=== PATIENT | male | born 1985 ===

== ENCOUNTER 2025-07-24 20:20 | Outpatient (REF) | payer MEDICAID, SELFPAY ==
--- OUTSIDE RECORDS SUMMARY | 2025-07-23 13:20 | XMS_ITS | Encounter Summary ---
Author Organization [facility] Address [address] [place] [address] Care Team Providers Care Certified Alcohol Drug Counselor Name Role Phone Cathleen Allan MD Unavailable [phone] Pete Hester MD Unavailable [phone] Pati Armendariz PhD Unavailabl e Madhav Mcfadden MD Primary Care Provider [phone] Romero Pryor MD Unavailable [phone] Prerna Paulino MD Unavailable [phone] Magda Davis MD Unavailable [phone] Ifeoma Hanson MD Unavailable [phone] Ifeoma Hanson MD Unavailable [phone] Encounter Details Date Type Department Care Team (Late st Contact Info) Description 07/23/2025 1:20 PM EST Office Visit MG PAIN MGMT [id number] [address] [phone] Reji Mi DO [address] [phone] Complex regional pain syndrome type 2 of left upper extremity (Primary Dx); Discitis of thoracic region; Encounter for long-term opiate analgesic use; Encounter for therapeutic drug monitoring Social History Tobacco Use Types Packs/Day Years Used Date Smoking Tobacco: Never Passive Smoke Exposure: Past Smokeless Tobacco: Never Alcohol Use Standard Drinks/Week Comments Not Currently 0 (1 standard drink = 0.6 oz pur e alcohol) [facility] Utilities Answer Date Recorded In the past 12 months has th e electric, gas, oil, or water company threatened to shut off services in your home? No 09/18/2024 Social Connection and Isolation Panel Answer Date Recorded In a typical week, how many times do you talk on the phone with family, friends, or neighbors? More than three times a week 09/18/2024 Frequency of Social Gatherin gs with Friends and Family Not on file 09/18/2024 Attends Hindu Services Not on file 09/18 Active Member of Clubs or Organizations Not on f ile 09/18/2024 Attends Club or Organization Meetings Not on reba e 09/18/2024 Marital Status Not on file 09/18/2024 AUDIT-C Answer Date Recorded Q1: How often do you have a drink containing alcohol? Never 09/24/2024 Q2: How many drinks containi ng alcohol do you have on a typical day when you are drinking? Patient does not drink Q3: How often do you have si x or more drinks on one occasion? Never 09/24/2024 Overall Financial Resource Strain (CARDIA) Answe r Date Recorded How hard is it for you to pa y for the very basics like food, housing, medical care, and heating? Not very hard 04/02/2023 PHQ-2 Answer Date Recorded PHQ-2 Total Score 2 07/23/2025 Hunger Vital Sign Answer Date Recorded Within the past 12 months, y ou worried that your food would run out before you got the money to buy more. Never true 09/18/19 25 Within the past 12 months, t he food you bought just didn't last and you didn't have money to get more. Never true 09/18/2024 PRAPARE - Transportation Answer Date Re corded In the past 12 months, has l ack of transportation kept you from medical appointments or from getting medications? No 09/06 In the past 12 months, has l ack of transportation kept you from meetings, work, or from getting things needed for daily living? No 09/18/2024 Housing Stability Vital Sign Answer Alden e Recorded In the last 12 months, was t here a time when you were not able to pay the mortgage or rent on time? No 04/02/2023 In the last 12 months, how many places have you lived? 1 04/02/2023 In the last 12 months, was t here a time when you did not have a steady place to sleep or slept in a custodial (including now)? No 04/02/2023 Housing Stability Vital Sign Answer Alden e Recorded In the last 12 months, was t here a time when you were not able to pay the mortgage or rent on time? No 09/18/2024 In the past 12 months, how m any times have you moved where you were living? 0 09/18/2024 At any time in the past 12 m ont, were you homeless or living in a custodial (including now)? No 09/18/2024 [facility] - Occupational Stress Questionnaire Answer Date Recorded Do you feel stress - tense, restless, nervous, or anxious, or unable to sleep at night because your mind is troubled all the time - these days? Very much 06/30/2025 Physical Activity Answer Date Recorded On average, how many days pe r week do you engage in moderate to strenuous exercise (like a brisk walk)? 0 days 06/30/2025 On average, how many minutes do you exercise per day at this level? 0 min 06/30/2025 Sex and Gender Information Value Date Recorded Sex Assigned at Male 08/16/2022 10:08 AM EST Legal Sex Male 2:40 PM EDT Gender Identity Male 08/16/2022 10:08 AM EST Sexual Orientation Heterosexual (straight) 08/16 10:08 AM EST documented as of this encounter Last Filed Vital Signs Vital Sign Reading Time Taken Comments Blood Pressure 155/83 07/23/2025 1:23 PM EST Pulse 66 07/23/2025 1:23 PM EST Temperature - - Respiratory Rate 18 07/23/2025 1:23 PM EST Oxygen Saturation 97% 07/23/2025 1:23 PM EST Inhaled Oxygen Concentration - - Weight 98.9 kg (218 lb) 07/23/2025 1:23 PM EST Height 185.4 cm (6' 1 ) 07/23/2025 1:23 PM EST Body Mass Index 28.76 07/23/2025 1:23 PM EST documented in this encounter Functional Status * Over the past 2 weeks, how often have you been bothered by any of the following problems? Question Answer Date of Assessment Author Patient Health Questionnaire -2 Score 2 07/23/2025 1:29 PM EST Golria Paul MA * Question Answer Date of Assessment Author PHQ-2 Total Score 2 07/23/2025 1:29 PM EST Gloria Paul MA Little interest or pleasure in doing things Several days 07/23/2025 1:29 PM EST Gloria Paul MA Feeling down, depressed, or hopeless Several days 07/23/2025 1:29 PM EST Gloria Paul MA documented as of this encounter Progress Notes * Reji Mi DO - 07/23/2025 3:14 PM EST Images from the original note were not included. Assessment and Plan 1. Complex regional pain syndrome type 2 of left upper extremity - Buprenorphine (BUTRANS) 20 MCG/HR weekly patch; Place 1 patch on the skin every 7 days. Max DailyAmount: 1 patch Dispense: 4 patch; Refill: 1 2. Discitis of thoracic region 3. Encounter for long-term opiate analgesic use 4. Encounter for therapeutic drug monitoring Last PDMP Review User: Reji Mi DO Last PDMP Review Date and Time: 07/23/2025 1:51 PM Assessment & Plan Discitis of thoracic region Chronic thoracic discitis with pain and spasms, likely bacterial. Antibiotic treatment ongoing. Infectious disease specialist involved. CT scan planned for spine assessment. Potential antibiotic adjustment based on RNA testing. - Continue current antibiotic regimen. - Schedule CT scan of the spine at the end of the month. - Discuss with infectious disease specialist about potential need for contrast in CT scan. - Monitor vancomycin trough levels and adjust treatment if necessary. - Consider MRI if CT scan results are inconclusive. Complex regional pain syndrome type 2 of left upper extremity Chronic pain management ongoing. - Continue current pain management regimen. Chronic opioid therapy for pain management Chronic opioid therapy ongoing with Butrans, Dilaudid, and oxycodone. Current supply adequate. - Continue current opioid regimen. -Reassess opioid needs after completion of current supply. Therapeutic drug monitoring for antibiotics and opioids Monitoring ongoing for vancomycin and opioids. Vancomycin levels fluctuating. - Continue monitoring vancomycin trough levels. - Continue monitoring opioid levels as part of chronic pain management. No follow-ups on file. History of Present Illness CHIEF COMPLAINT: No chief complaint on file. History of Present Illness Andrea Torres is a 39 year old male who presents for follow-up on his antibiotic treatment and painmanagement related to a spinal infection. He mentions that his infectious disease doctor, Dr. Kerry Kaba from [facility], is involved in his care. 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 - Symptoms have persisted for up to three years without significant improvement - Currently receiving IV vancomycin and ceftriaxone for approximately one month - Vancomycin trough levels have fluctuated, recently decreased from 15 to 10 mcg/dL - Concern for adequacy of antibiotic therapy and possible resistance - Infection may be extending into the epidural space per infectious disease specialist - Scheduled for CT scan of the spine at the end of July for further assessment - Concern for potential vancomycin toxicity and increased drug clearance Spinal pain - Severe spinal pain characterized by spasms - Pain worsened by leaning slightly to the left or right Pain management - Uses Dilaudid as needed for pain control - Oxycodone last filled in early June - Utilizes Butrans patches for pain management, but did not use them during a recent two-week hospitalization ALLERGIES: is allergic to vancomycin and pertussis vaccines. CURRENT MEDICATION LIST: Current Medications[1] PAST MEDICAL HISTORY: He has a past medical history of Abdominal wall cellulitis (09/19/2022), Absolute anemia (12/16/2021), VELIA (acute kidney injury) (01/23/2023), Anxiety, Anxiety and depression, Attention deficit disorder, Cellulitis and abscess of unspecified site, Chronic tension-type headache, intractable (11/25/2019), Cold intolerance, Complex regional pain syndrome of left upper extremity, Contact dermatitis and other eczema due to plants (except food), CPAP (continuous positive airway pressure) dependence, CRPS (complex regional pain syndrome), upper limb, Food intolerance, Gastroparesis (07/13/2022), General weakness, GERD (gastroesophageal reflux disease), Heartburn, Heat intolerance, History of transfusion, Hyperlipidemia, Hypertension, Hypogonadism in male, Hypogonadism in male (08/14/2020), Infection of humerus (HCC) (11/18/2021), Intractable nausea and vomiting (11/01/2022), Irritable bowel syndrome, Lymphedema (09/29/2019), Nervous system device, implant, or graft infection or inflammation (08/14/2020), Obesity (BMI 30.0-34.9) (08/26/2013), Obstructive sleep apnea (adult) (pediatric), Odynophagia, Paralysis ([facility]), Personal history of diseases of skin and subcutaneous tissue, Personal history of other diseases of respiratory system, Personal history of other disorders of nervous systemand sense organs, Pneumonia, Preoperative examination, unspecified, Swelling, Type 2 diabetes mellitus with hyperglycemia, without long-term current use of insulin ([facility]), and UTI (urinary tract infection) (10/27/2021). PAST SURGICAL HISTORY: He has a past surgical history that includes pr xcapsl ctrc rmvl insj io lens prosth w/o ecp; Colonoscopy; Sinus surgery; INJECTION/BLOCK STELLATE GANGLION (Left, 06/26/2019); ENDOSCOPY (10/25/2020);INJECTION/BLOCK STELLATE GANGLION (Left, 08/07/2019); INJECTION/BLOCK STELLATE GANGLION (Left, 10/21/2019); INJECTION/BLOCK STELLATE GANGLION (Left, 11/25/2019); PERCUTANEOUS IMPLANTATION NEUROSTIMULATOR-PERIPHERAL NERVE (Left, 02/05/2020); Uvulectomy (06/2019); Neuroplasty brachial plexus (Left, 03/03/2022); Ulnar nerve repair (Left, 03/03/2022); Carpal tunnel release (11/2021); Abdominal adhesion surgery (11/2021); Shoulder surgery (11/2021); IR Insert G/J Tube Incl Imaging (N/A, 09/07/2022); CVC INSERT (TUNNEL) W/O PORT GREATER THAN 5 YRS (N/A, 09/28/2022); IR G Tube/G-J Tube Placement W/Guidance (N/A, 12/14/2022); and IR G-J TUBE CHANGE (N/A, 01/23/2023). FAMILY HISTORY: His family history includes Hypertension in his mother; No Known Problems in his father. SOCIAL HISTORY: He reports that he has never smoked. He has been exposed to tobacco smoke. He has never used smokeless tobacco. He reports that he does not currently use alcohol. He reports that he does not use drugs. Review of Systems Screenings Physical Activity On average, how many days per week do you engage in moderate to strenuous exercise (like a brisk walk)?: (Patient-Rptd) 0 days On average, how many minutes do you exercise per day at this level?: (Patient- Rptd) 0 min Total minutes per week of physical activity: : (Patient-Rptd) 0 Stress Do you feel stress - tense, restless, nervous, or anxious, or unable to sleep at night because yourmind is troubled all the time - these days?: (Patient-Rptd) Very much PEG: A Three-Item Scale Assessing Pain Intensity and Interference What number best describes your pain on average in the past week?: (Patient- Rptd) 10 - Pain as bad as you can imagine What number best describes how, during the past week, pain has interfered with your enjoyment of life?: (Patient-Rptd) 10 - Completely interferes What number best describes how, during the past week, pain has interfered with your general activity?: (Patient-Rptd) 10 - Completely interferes PEG Pain Total Score: (Patient-Rptd) 10 VAS for Low Back Pain Low Back Pain Score: (Patient-Rptd) 5 VAS for Leg Pain: (Patient-Rptd) 5 Physical Exam VITAL SIGNS: BP (!) 155/83 (BP Location: Left arm, Patient Position: Sitting, Cuff Size: Medium (Standard)) Pulse 66 Resp 18 Ht 1.854 m (6' 1 ) Wt 98.9 kg (218 lb) SpO2 97% BMI 28.76 kg/m?? Physical Exam Physical Exam This patient is being managed for a complex and serious condition that requires ongoing, intensive medical management. The nature of this condition demands constant vigilance and a nuanced approach to treatment. The seriousness of the condition necessitates an in-depth and focused approach to management, including regular monitoring and potential coordination with other healthcare professionals. Detailed Description of Visit Complexity: This visit involved an intricate evaluation and management of the patient's condition. The complexity of the visit was due to the need for a detailed assessment of the current state, consideration of potential complications, and a careful balancing of treatment options to manage the condition effectively. Patient's Health Status and History: This patient has a significant pain history which requires regular and detailed management. The condition's impact on their life and health is substantial, necessitating a comprehensive and tailored approach to care. Reji Mi DO [1] Current Outpatient Medications: aprepitant (EMEND) 125 MG capsule, Take 1 capsule (125 mg total) by mouth once., Disp: , Rfl: atorvastatin (LIPITOR) 10 MG tablet, TAKE 1 TABLET BY MOUTH EVERY DAY, Disp: 90 tablet, Rfl: 1 B-D 3CC LUER-JHONNY SYR 25GX1 25G X 1 3 ML Misc, , Disp: , Rfl: B-D HYPODERMIC NEEDLE 21GX1 21G X 1 Misc, USE TO DRAW UP TESTOSTERONE EVERY 3 DAYS, Disp: , Rfl: carisoprodol (SOMA) 350 MG tablet, Take 1 tablet (350 mg total) by mouth 2 (two) times a day as needed for muscle spasms., Disp: 60 tablet, Rfl: 0 Continuous Glucose Sensor (Dexcom G7 Sensor) Misc, Apply 1 Device topically continuously. Use 1 sensor every 10 days, Disp: 9 each, Rfl: 3 famotidine (PEPCID) 20 MG tablet, TAKE 1 TABLET TWICE A DAY, Disp: 180 tablet, Rfl: 3 fenofibrate (TRICOR) 145 MG tablet, Take 1 tablet (145 mg total) by mouth daily., Disp: 90 tablet, Rfl: 3 HYDROmorphone (DILAUDID) 4 MG tablet, Take 1 tablet (4 mg total) by mouth 4 times daily (every 6 hours) as needed for severe pain. Max Daily Amount: 16 mg, Disp: 120 tablet, Rfl: 0 Motegrity 2 MG tablet, TAKE 1 TABLET BY MOUTH EVERY DAY, Disp: 30 tablet, Rfl: 3 multiple vitamin (M.V.I. Adult) injection, , Disp: , Rfl: NEEDLE, DISP, 18 G (BD Disp [place]) 18G X 1-1/2 Misc, Use to inject testosterone weekly., Disp: 12 each, Rfl: 3 NEEDLE, DISP, 25 G (B-D DISP NEEDLE 25GX1 ) 25G X 1 Misc, Use to inject testosterone weekly., Disp: 12 each, Rfl: 3 OMEprazole (PriLOSEC) 40 MG capsule, TAKE 1 CAPSULE TWICE A DAY, Disp: 180 capsule, Rfl: 3 ondansetron (ZOFRAN) 4 MG tablet, TAKE 1 TABLET BY MOUTH THREE TIMES A DAY EVERY 8 HOURS NEEDED FOR NAUSEA AND VOMITING, Disp: 20 tablet, Rfl: 1 Parenteral Electrolytes (TPN ELECTROLYTES IV), Infuse into a venous catheter., Disp: , Rfl: proMETHAZINE (PHENERGAN) 12.5 MG tablet, Take 1 tablet (12.5 mg total) by mouth every 4 (four) hours as needed., Disp: , Rfl: propranolol (INDERAL) 80 MG tablet, 1 tablet (80 mg total) by Mouth/Oral Cavity route every 12 hours., Disp: , Rfl: pyRIDostigmine [place] 60 MG/5ML Solution, Take by mouth., Disp: , Rfl: sodium chloride (1/2 NS) 0.45 % solution, , Disp: , Rfl: spacer for MDI (Aerochamber/BreatheRite/Ellipse) Device, Use as instructed, Disp: 1 each, Rfl: 0 Syringe, Disposable, (B-D SYRINGE LUER-JHONNY 1CC) 1 ML Misc, Use t inject testosterone weekly., Disp:12 each, Rfl: 3 testosterone cypionate (DEPO-TESTOSTERONE CYPIONATE) 200 mg/mL injection, INJECT 0.75ML INTO THE MUSCLE EVERY 3 DAYS, Disp: 20 mL, Rfl: 1 tirzepatide (MOUNJARO) 10 mg/0.5 mL pen-injector, Inject 1 Pen (10 mg total) under the skin once a week., Disp: 6 mL, Rfl: 1 tiZANidine (ZANAFLEX) 4 MG tablet, TAKE 1 TABLET BY MOUTH 3 TIMES A DAY., Disp: 90 tablet, Rfl: 0 Tralement [id number] MCG/ML injection, , Disp: , Rfl: zolpidem (AMBIEN) 10 MG tablet, TAKE 1 TABLET BY MOUTH EVERY DAY AT NIGHT, Disp: 90 tablet, Rfl: 0 Buprenorphine (BUTRANS) 20 MCG/HR weekly patch, Place 1 patch on the skin every 7 days. Max Daily Amount: 1 patch, Disp: 4 patch, Rfl: 1 documented in this encounter Plan of Treatment Upcoming Encounters Date Type Department Care Team (Late st Contact Info) Description 2025 8:00 AM EST Office Visit [address] [phone] Madhav Mcfadden MD [address] [place] [phone] 09/01/2025 9:20 AM EST Office Visit MG PAIN MGMT [id number] [address] [phone] ShmuelReji bunrett Joni, DO [address] [place] [phone] 09/29/2025 9:20 AM EST Office Visit MG PAIN MGMT [id number] [address] [phone] ShmueleRji silver Joni, DO [address] [place] [phone] 10/27/2025 9:40 AM EDT Office Visit MG PAIN MGMT [id number] [address] [phone] Reji Miil, DO [address] [place] [phone] 12/01/2025 9:40 AM EDT Office Visit MG PAIN MGMT [id number] [address] [phone] ShmuelReji burnett Joni, DO [address] [place] [phone] 02/03/2026 9:30 AM EDT Telemedicine [facility] Endocrinology [address] [phone] Ifeoma Hanson MD [address] [place] [phone] documented as of this encounter Goals Goal Patient Goal Type Associated Problems Recent Progress Patient-Stated? Author OT LTG 1 Occupational Therapy No Maida Benito OT Note: Patient will be independent with HEP for strengthening, desensitization, and coordination x12 weeks. 06/18/2019 He is independent with a desensitization HEP including scrubbing and using a rough cloth over arm, a theraputty HEP, and he was provided today with a [facility] HEP., ongoing OT LTG 2 Occupational Therapy No Maida Benito OT Note: Patient will decrease Quick Dash score from 79.5 to 10 or less in order to complete functional tasks with greater ease x 12 weeks 06/18/2019 Scored the same today, ongoing OT LTG 3 Occupational Therapy No Maida Benito, OT Note: Patient will increase L supervisor machine setter strength (4lbs) to 60 lbs or more in order to open pill bottles with greater ease x12 weeks Patient will increase L lateral pinch (3.5), L tip pinch (2.5), L 3 jaw pinch (2.5) by 5 lbs each in order for greater ease with typing x12 weeks. 06/18/2019 L supervisor machine setter- 20 lbs L lateral pinch- 6.2 Tip pinch- 7.1 3 jaw- 6.1 OT LTG 4 Occupational Therapy No Maida Benito, OT Note: Patient will decrease L 9 hole peg test score (41 seconds) to 26 seconds or less in order for greater ease with fine motor tasks related to dressing x12 weeks 06/18/2019 58 seconds, ongoing OT LTG 5 Occupational Therapy No Maida Benito, OT Note: Patient will increase L AROM shoulder flexion (128), extension (32), and abduction (112) to WFL in order to reach overhead with greater ease x 12 weeks 06/18/2019 Flexion- 140, Extension-42 Abduction-140 All measurements are equal to contralateral side, he demonstrates a 20 degree difference with IR on LUE. Original ROM goals met, IR one added Patient will increase LUE IE (60) to 80 in order to don coat with greater ease x12 weeks. OT LTG 6 Occupational Therapy No Maida Benito, OT Note: Patient will increase L shoulder abductors and IR's, elbow extensors, and wrist flexors/extensors (3+/5) to 5/5 in order to greater ease picking up young son x12 weeks Abductors- 3+ IR's- 5/5 Elbow extensors- 4/5 Wrist flexors-5/5 Wrist extensors- 4/5 Ongoing Andrea Torres Stated Goals: I no longer have the motivation to do things Care Plan Pain No Pati Armendariz, PhD Note: Develop an enhanced capacity for emotional expression that enables adaptive coping with frustration, and other emotions Care Plan Pain No Pati Armendariz, PhD documented as of this encounter Visit Diagnoses Diagnosis Complex regional pain syndrome type 2 of left upper extremity- Primary Discitis of thoracic region Other and unspecified disc disorder of thoracic region Encounter for long-term opiate analgesic use Encounter for long-term (current) use of other medications Encounter for therapeutic drug monitoring documented in this encounter Additional Health Concerns Active Problems Noted Date Diagnosed Date Pain 09/26/2024 documented as of this encounter Care Teams Certified Alcohol Drug Counselor Relationship Specialty Start Date End Date Madhav Mcfadden MD [address] [place] [phone] PCP - General Family Medicine 01/16/22 Cathleen Allan MD Urology 09/15/16 Pete Hester MD [address] [place] [phone] Surgery, Orthopedic 08/15/19 Pati Armendariz, PhD [address] [place], [place] [phone] Clinical Psychologist Psychology 09/16/21 Romero Pryor MD [address] [place] [address] [place] [address] Cardiovascular Disease 02/05/23 Prerna Paulino MD [address] [place] [address] Internal Medicine 07/04/24 Magda Davis MD [address] [place] [address] Gastroenterology 07/04/24 Ifeoma Hanson MD [address] [place] [address] Endocrinology 07/04/24 Ifeoma Hanson MD [address] [place] [phone] Endocrinology 11/26/24 documented as of this encounter
--- OUTSIDE RECORDS SUMMARY | 2025-07-24 20:30 | XMS_ITS | Encounter Summary ---
Author Organization [facility] Address [address] [place] [address] Care Team Providers Care Automation Qa Tester Name Role Phone Cathleen Allan MD Unavailable [phone] Pete Hester MD Unavailable [phone] Pati Armendariz PhD Unavailabl e Madhav Mcfadden MD Primary Care Provider [phone] Jacqueline Kay MD Unavailable Unavailable Yasmine Cohen RN Unavailable Unavaila Bre Pete RN Unavailable [phone] Madhav Mcfadden MD Unavailable [phone] Romero Pryor MD Unavailable [phone] Prerna Paulino MD Unavailable [phone] Magda Davis MD Unavailable [phone] Ifeoma Hanson MD Unavailable [phone] Ifeoma Hanson MD Unavailable [phone] Encounter Details Date Type Department Care Team (Late st Contact Info) Description 04/03/2022 Scanned Document [facility] EVENT MANAGEMENT CONSULTANT SCAN Physical Therapy, Scan Social History Tobacco Use Types Packs/Day Years Used Date Smoking Tobacco: Never Smokeless Tobacco: Never Alcohol Use Standard Drinks/Week Comments Yes 0 (1 standard drink = 0.6 oz pur e alcohol) rarely PHQ-2 Answer Date Recorded PHQ-2 Total Score 6 09/20/2021 Sex and Gender Information Value Date Recorded Sex Assigned at Male 08/16/2022 10:08 AM EST Legal Sex Male 2:40 PM EDT Gender Identity Male 08/16/2022 10:08 AM EST Sexual Orientation Heterosexual (straight) 08/16 10:08 AM EST COVID-19 Exposure Response Date Recorded In the last 10 days, have yo u been in contact with someone who was confirmed or suspected to have Coronavirus/COVID-19? No / Unsure 03/31/2022 7:50 AM EDT documented as of this encounter Plan of Treatment Upcoming Encounters Date Type Department Care Team (Late st Contact Info) Description 2025 8:00 AM EST Office Visit [address] [phone] Madhav Mcfadden MD [address] [place] [address] 09/01/2025 9:20 AM EST Office Visit [id number] [address] [phone] Reji Miil, DO [address] [place] [phone] 09/29/2025 9:20 AM EST Office Visit [id number] [address] [phone] Reji Mi Joni, DO [address] [place] [phone] 10/27/2025 9:40 AM EDT Office Visit [id number] [address] [phone] Reji Miil, DO [address] [place] [phone] 12/01/2025 9:40 AM EDT Office Visit [id number] [address] [place] [phone] Shmuel Reji Joni, [address], [place] [phone] 02/03/2026 9:30 AM EDT Telemedicine [facility] [place] [address] [place] [phone] Ifeoma Hanson MD [address] [facility], [place] [phone] documented as of this encounter Goals Goal Patient Goal Type Associated Problems Recent Progress Patient-Stated? Author OT LTG 1 Occupational Therapy No Maida Benito, OT Note: Patient will be independent with HEP for strengthening, desensitization, and coordination x12 weeks. 06/18/2019 He is independent with a desensitization HEP including scrubbing and using a rough cloth over arm, a theraputty HEP, and he was provided today with a [facility] HEP., ongoing OT LTG 2 Occupational Therapy No Maida Benito, OT Note: Patient will decrease Quick Dash score from 79.5 to 10 or less in order to complete functional tasks with greater ease x 12 weeks 06/18/2019 Scored the same today, ongoing OT LTG 3 Occupational Therapy No Maida Benito, OT Note: Patient will increase L ob tech strength (4lbs) to 60 lbs or more in order to open pill bottles with greater ease x12 weeks Patient will increase L lateral pinch (3.5), L tip pinch (2.5), L 3 jaw pinch (2.5) by 5 lbs each in order for greater ease with typing x12 weeks. 06/18/2019 L ob tech- 20 lbs L lateral pinch- 6.2 Tip [...] 4/5 Wrist flexors-5/5 Wrist extensors- 4/5 Ongoing documented as of this encounter Visit Diagnoses Not on filedocumented in this encounter Additional Health Concerns Infection Onset Date Last Indicated Resolved Time R/O Gastrointestinal Infection 10/31/2022 10/31/2022 11/02/2022 11:58 AM EDT R/O C. Difficile 10/31/2022 10/31/2022 11/02/2022 11:58 AM EDT documented as of this encounter Care Teams Automation Qa Tester Relationship Specialty Start Date End Date Madhav Mcfadden MD [address] [place] [address] PCP - General Family Medicine 01/16/22 Jacqueline Kay MD PCP - [employer] Commercial Attributed 11/04/21 07/05/22 Madhav Mcfadden MD [address] [place], [place] [phone] PCP - [employer] Commercial Attributed 07/06/22 07/05/23 Cathleen Allan MD Urology 09/15/16 Pete Hester MD [address] [place] [address] Surgery, Orthopedic 08/15/19 Pati Armendariz, PhD [address] [place] [address] Clinical Psychologist Psychology 09/16/21 Yasmine Cohen RN ICP Community Electric Meter Inspector 07/21/22 08/26/23 Bre Almaguer, RN [address] [address] ICP Community Electric Meter Inspector 10/03/22 11/13/22 Romero Pryor MD [address] [place] [address] Cardiovascular Disease 02/05/23 Prerna Paulino MD [address] [place] [address] Internal Medicine 07/04/24 Magda Davis MD [address] [place] [address] Gastroenterology 07/04/24 Ifeoma Hanson MD [address] [place] [address] Endocrinology 07/04/24 Ifeoma Hanson MD [address] [place] [address] Endocrinology 11/26/24 documented as of this encounter
--- OUTSIDE RECORDS SUMMARY | 2025-07-24 20:30 | XMS_ITS | Encounter Summary ---
Author Organization [facility] Address [address] [place] [address] Care Team Providers Care Excellence Leader Name Role Phone Madhav Mcfadden MD Primary Care Provider [phone] Encounter Details Date Type Department Care Team ([facility] st Contact Info) Description 04/16/2023 Scanned Document [facility] [address] [facility] [address] [place] [address] [address] [place], [place] [phone] Magda Davis MD [address] [place] [address] Social History Tobacco Use Types Packs/Day Years Used Date Smoking Tobacco: Never Assessed Overall Financial Resource Strain (CARDIA) Answe r Date Recorded How hard is it for you to pa y for the very basics like food, housing, medical care, and heating? Not hard at all 03/17/2023 PHQ-2 Answer Date Recorded PHQ-2 Total Score 0 03/17/2023 Hunger Vital Sign Answer Date Recorded Within the past 12 months, y ou worried that your food would run out before you got the money to buy more. Sometimes true Within the past 12 months, t he food you bought just didn't last and you didn't have money to get more. Never true 07/2023 PRAPARE - Transportation Answer Date Re corded In the past 12 months, has l ack of transportation kept you from medical appointments or from getting medications? No 03/06 In the past 12 months, has l ack of transportation kept you from meetings, work, or from getting things needed for daily living? No 03/17/2023 Housing Stability Answer Date Recorded What is your living situation today? I have a poncho place to live 03/17/2023 Housing Stability Not on file 03/17/2023 Sex and Gender Information Value Date Recorded Sex Assigned at Male 06/16/2025 10:30 AM EST Legal Sex Male 8:50 PM EST Gender Identity Male 06/16/2025 10:30 AM EST Sexual Orientation Not on file documented as of this encounter Miscellaneous Notes * Result Encounter Note - Magda Berman PA - 04/16/2023 3:11 PM EDT [facility] Documentation Note LAB REVIEW OPAT Synopsis can be found Here Summary of Results Date of lab draw: 04/16/23 Cr= 1.19 (from: 0.9) WBC= 5.1 (from: 4.1) Hg/HCT= 14.7/45.6 (from: 14.0/42.6) CRP= not resulted (from: 0.9) Was an Adverse Event Identified? No Author's Role RASHID (e.g. UGO or MANOLO) Total Time Spent on this Encounter (in minutes) 5 minutes documented in this encounter Plan of Treatment Upcoming Encounters Date Type Department Care Team (Late st Contact Info) Description 08/05/2025 1:40 PM EST Appointment [facility] Scan [address] [place] [address] [place] [address] Bal Villavicencio MD [address] [place] [address] 08/11/2025 4:00 PM EST Evaluation [facility] [address] [place], [place] [address] Kerry Kaba MD 200 [facility] [address] [place] [phone] 08/17/2025 1:00 PM EST Office Visit [facility] [address] [place] [address] Petrona Nesbitt PA [address] [place] [phone] 09/04/2025 10:15 AM EST [facility] at [address] [place] [address] Carlos Lo MD [address] [place] [phone] 10/20/2025 4:00 PM EDT Telemedicine [facility] at [address] [place] [address] [address] [place] [address] Prerna Paulino MD [address] [place] [phone] 10/29/2025 9:00 AM EDT Office Visit [facility] [address] [place] [address] Petrona Nesbitt PA [address] [place] [phone] 12/10/2025 10:00 AM EDT Office Visit [facility] [address] [place] [address] Petrona Nesbitt PA [address] [place] [phone] 01/21/2026 10:00 AM EDT Office Visit [facility] [address] [place] [address] Petrona Nesbitt PA [address] [place] [phone] 03/04/2026 10:00 AM EDT Office Visit [facility] [address] [place] [address] Petrona Nesbitt PA [address] [facility] [place] [address] 04/15/2026 10:30 AM EDT Office Visit [facility] 8 [facility] 8 [place] [address] Ebonie Crowley MD [address] [phone] documented as of this encounter Procedures Procedure Name Priority Date/Time Associated Diagnosis Comments LAB SCAN Routine 04/16/2023 documented in this encounter Results * Lab Scan (04/16/2023) Magda Davis MD LAB BLOOD ORDERABLES Final Re sult documented in this encounter Visit Diagnoses Not on filedocumented in this encounter Additional Health Concerns Infection Onset Date Last Indicated Resolved Time R/O Respiratory Virus 08/17/2023 08/17/20232023 7:04 AM EST R/O COVID-19 08/17/2023 08/17/2023 08/17/2023 7:04 AM EST R/O Respiratory Virus 08/18/2023 08/18/20232023 2:28 PM EST R/O Respiratory Virus 08/18/2023 08/18/20232023 6:50 PM EST Assessment Noted Time PHQ-9 Depression Total Score: 0 03/17/20 23 6:12 AM EDT documented as of this encounter Care Teams Excellence Leader Relationship Specialty Start Date End Date Madhav Mcfadden MD [address] [place], [place] [address] [address] PCP - General Family Medicine 08/20/23 documented as of this encounter
--- OUTSIDE RECORDS SUMMARY | 2025-07-24 20:30 | XMS_ITS | Encounter Summary ---
Author Organization [facility] Address [address] [place] [address] Care Team Providers Care Education Dean Name Role Phone Jacqueline Kay MD Primary Care Provider Unava ilable Jacqueline Kay MD Unavailable Unavailable Cathleen Allan MD Unavailable [phone] Pete Hester MD Unavailable [phone] Pati Armendariz PhD Unavailabl e Madhav Mcfadden MD Primary Care Provider [phone] Jacqueline Kay MD Unavailable Unavailable Yasmine Cohen RN Unavailable Unavaila Bre Pete RN Unavailable [phone] Madhav Mcfadden MD Unavailable [phone] Romero Pryor MD Unavailable [phone] Prerna Paulino MD Unavailable [phone] Magda Davis MD Unavailable [phone] Ifeoma Hanson MD Unavailable [phone] Ifeoma Hanson MD Unavailable + [phone] Encounter Details Date Type Department Care Team (Late st Contact Info) Description 12/12/2021 Scanned Document [address] [phone] Family Medicine, Scan Social History Tobacco Use Types Packs/Day [...] AM EST documented as of this encounter Plan of Treatment Upcoming Encounters Date Type Department Care Team (Late st Contact Info) Description 2025 8:00 AM EST Office Visit [address] [phone] Madhav Mcfadden MD [address] [place] [address] 09/01/2025 9:20 AM EST Office Visit [id number] [address] [phone] Reji Miil, DO [address] [place] [phone] 09/29/2025 9:20 AM EST Office Visit [id number] [address] [address] Reji Mi Joni, DO [address] [place] [phone] 10/27/2025 9:40 AM EDT Office Visit [id number] [address] [phone] Reji Mi Joni, DO [address] [place] [phone] 12/01/2025 9:40 AM EDT Office Visit [id number] [address] [place] [phone] ShmuelReji Joni, [address], [place] [phone] 02/03/2026 9:30 AM EDT Telemedicine [facility] Endocrinology [place] [address] [place] [phone] Ifeoma Hanson MD [address] [facility], [place] [phone] documented as of this encounter Goals Goal [...] and he was provided today with a [facility] HEP., ongoing OT LTG 2 Occupational Therapy No Maida Benito, OT Note: Patient will decrease Quick Dash score from 79.5 to 10 or less in order to complete functional tasks with greater ease x 12 weeks 06/18/2019 Scored the same today, ongoing OT LTG 3 Occupational Therapy No Maida Benito, OT Note: Patient will increase L nylon operator strength (4lbs) to 60 lbs or more in order to open pill bottles with greater ease x12 weeks Patient will increase L lateral pinch (3.5), L tip pinch (2.5), L 3 jaw pinch (2.5) by 5 lbs each in order for greater ease with typing x12 weeks. 06/18/2019 L nylon operator- 20 lbs L lateral pinch- 6.2 Tip [...] 4/5 Ongoing documented as of this encounter Procedures Procedure Name Priority Date/Time Associated Diagnosis Comments LAB RESULT 12/12/2021 documented in this encounter Results * LAB RESULT (12/12/2021) 12/12/2021 us Scan Family Medicine HX AMB PROCEDURES Edited Re sult - Final documented in this encounter Visit Diagnoses Not on filedocumented in this encounter Additional Health Concerns Infection Onset Date Last Indicated Resolved Time R/O Gastrointestinal Infection 10/31/2022 10/31/2022 11/02/2022 11:58 AM EDT R/O C. Difficile 10/31/2022 10/31/2022 11/02/2022 11:58 AM EDT documented as of this encounter Care Teams Education Dean Relationship Specialty Start Date End Date Jacqueline Kay MD PCP - General Family Medicine 04/29/21 01/15/22 Madhav Mcfadden MD [address] [place] [address] PCP - General Family Medicine 01/16/22 Jacqueline Kay MD PCP - [employer] Commercial Attributed 11/04/21 07/05/22 Madhav Mcfadden MD [address] [place] [address] PCP - [employer] Commercial Attributed 07/06/22 07/05/23 Jacqueline Kay MD Family Medicine 04/29/21 03/30/22 Cathleen Allan MD Urology 09/15/16 Pete Hester MD [address] [place] [address] Surgery, Orthopedic 08/15/19 Pati Armendariz, PhD [address] [place] [address] Clinical Psychologist Psychology 09/16/21 Yasmine Cohen RN ICP Community Tank Builder Helper 07/21/22 08/26/23 Bre Almaguer, RN [address] [address] ICP Community Tank Builder Helper 10/03/22 11/13/22 Romero Pryor MD [address] [place] [address] Cardiovascular Disease 02/05/23 Prerna Paulino MD [address] [place] [address] Internal Medicine 07/04/24 Magda Davis MD [address] [place] [address] Gastroenterology 07/04/24 Ifeoma Hanson MD [address] [place] [address] Endocrinology 07/04/24 Ifeoma Hanson MD [address] [place] [address] Endocrinology 11/26/24 documented as of this encounter
--- OUTSIDE RECORDS SUMMARY | 2025-07-24 20:30 | XMS_ITS | Encounter Summary ---
Author Organization [facility] Address [address] [place] [address] Care Team Providers Care Photography Professor Name Role Phone Bianka Kelly APRN Primary Care Provider U Jacqueline Campos MD Primary Care Provider Unava ilable Jacqueline Kay MD Primary Care Provider Unava Jacqueline Valdez MD Unavailable Unavailable Jacqueline Kay MD Unavailable Unavailable Stephanie Darnell I TRAIN ANNOUNCER Unavailable [phone] Stephanie Darnell I TRAIN ANNOUNCER Unavailable [phone] Cathleen Allan MD Unavailable [phone] Pete Hester MD Unavailable [phone] Pati Armendariz PhD Unavailabl e Madhav Mcfadden MD Primary Care Provider [phone] Jacqueline Kay MD Unavailable Unavailable Yasmine Cohen RN Unavailable Unavaila ble Bre Almaguer RN Unavailable [phone] Madhav Mcfadden MD Unavailable [phone] Romero Pryor MD Unavailable [phone] Prerna Paulino MD Unavailable [phone] Magda Davis MD Unavailable [phone] Ifeoma Hanson MD Unavailable Ifeoma Hanson MD Unavailable Encounter Details Date Type Department Care Team (Late st Contact Info) Description 01/03/2017 Scanned Document [facility] [address] [place] [phone] Bianka Kelly APRN Social History Tobacco Use Types Packs/Day Years Used Date Smoking Tobacco: Never Alcohol Use Standard Drinks/Week Comments Yes 0 (1 standard drink = 0.6 oz pur e alcohol) Occasional Sex and Gender Information Value Date Recorded Sex Assigned at Male 08/16/2022 10:08 AM EST Legal Sex Male 2:40 PM EDT Gender Identity Male 08/16/2022 10:08 AM EST Sexual Orientation Heterosexual (straight) 08/16 10:08 AM EST documented as of this encounter Plan of Treatment Upcoming Encounters Date Type Department Care Team (Late st Contact Info) Description 2025 8:00 AM EST Office Visit [address] [phone] Madhav Mcfadden MD [address] [place] [phone] 09/01/2025 9:20 AM EST Office Visit [id number] [address] [phone] Reji Mi, DO [address] [place] [phone] 09/29/2025 9:20 AM EST Office Visit [id number] [address] [address] Reji Mi, DO [address] [place] [phone] 10/27/2025 9:40 AM EDT Office Visit [id number] [address] [place] [phone] ShmuelReji Joni, DO [address] [phone] 12/01/2025 9:40 AM EDT Office Visit [id number] [address] [place] [phone] ShmuelReji Joni, DO [address], [place] [phone] 02/03/2026 9:30 AM EDT [facility] [address] [phone] Ifeoma Hanson MD [address] [place] [address] documented as of this encounter Visit Diagnoses Not on filedocumented in this encounter Additional Health Concerns Infection Onset Date Last Indicated Resolved Time R/O Gastrointestinal Infection 10/31/2022 10/31/2022 11/02/2022 11:58 AM EDT R/O C. Difficile 10/31/2022 10/31/2022 11/02/2022 11:58 AM EDT documented as of this encounter Care Teams Photography Professor Relationship Specialty Start Date End Date Bianka Kelly APRN PCP - General Family Medicine 06/15/16 10/31/17 Jacqueline Kay MD PCP - General Family Medicine 11/01/17 04/28/21 Jacqueline Kay MD PCP - General Family Medicine 04/29/21 01/15/22 Jacqueline Kay MD PCP - [employer] Attributed 06/06/20 07/05/20 Stephanie Darnell APRN [address] [phone] PCP - [employer] Commercial Attributed 07/06/20 10/03/20 Stephanie Darnell I, TRAIN ANNOUNCER [address] [phone] PCP - [employer] Commercial Attributed 05/06/21 11/03/21 Madhav Mcfadden MD [address] [place], [place] [phone] PCP - General Family Medicine 01/16/22 Jacqueline Kay MD PCP - [employer] Commercial Attributed 11/04/21 07/05/22 Madhav Mcfadden MD [address] [place] [address] PCP - [employer] Commercial Attributed 07/06/22 07/05/23 Jacqueline Kay MD Family Medicine 04/29/21 03/30/22 Cathleen Allan MD [address] [place] [phone] Urology 09/15/16 Pete Hester MD [address] [place] [address] Surgery, Orthopedic 08/15/19 Pati Armendariz, PhD [address] [place] [address] [phone] Clinical Psychologist Psychology 09/16/21 Yasmine Cohen, RN [address] [place] [address] ICP [employer] Assistant Principal 07/21/22 08/26/23 Bre Almaguer, RN 12[address] Degroot [address] [address] ICP [employer] Assistant Principal 10/03/22 11/13/22 Romero Pryor MD [address] [place] [address] Cardiovascular Disease 02/05/23 Prerna Paulino MD [address] [place], [place] [phone] Internal Medicine 07/04/24 Magda Davis MD [address] [place] [address] Gastroenterology 07/04/24 Ifeoma Hanson MD [address] [place] [address] Endocrinology 07/04/24 Ifeoma Hanson MD [address] [place] [address] Endocrinology 11/26/24 documented as of this encounter
--- OUTSIDE RECORDS SUMMARY | 2025-07-24 20:30 | XMS_ITS | Encounter Summary ---
Author Organization [facility] Address [address] [place] [address] Care Team Providers Care Load Blocker Name Role Phone Cathleen Allan MD Unavailable [phone] Pete Hester MD Unavailable + [phone] Pati Armendariz PhD Unavailabl e Madhav Mcfadden MD Primary Care Provider [phone] Yasmine Cohen RN Unavailable Unavaila ble Bre Almaguer RN Unavailable [phone] Madhav Mcfadden MD Unavailable [phone] Romero Pryor MD Unavailable [phone] Prerna Paulino MD Unavailable + [phone] Magda Davis MD Unavailable [phone] Ifeoma Hanson MD Unavailable +[phone] Ifeoma Hanson MD Unavailable + [phone] Encounter Details Date Type Department Care Team ([facility] st Contact Info) Description 09/14/2022 Scanned Document [facility] CARDIOLOGY SCAN Cardiology, Scan Social History Tobacco Use Types Packs/Day Years Used Date Smoking Tobacco: Never Smokeless Tobacco: Never Alcohol Use Standard Drinks/Week Comments Not Currently 0 (1 standard drink = 0.6 oz pur e alcohol) AUDIT-C Answer Date Recorded Q1: How often do you have a drink containing alcohol? Never 09/18/2022 Q2: How many drinks containi ng alcohol do you have on a typical day when you are drinking? Patient does not drink Q3: How often do you have si x or more drinks on one occasion? Never 09/18/2022 Overall Financial Resource Strain (CARDIA) Answe r Date Recorded How hard is it for you to pa y for the very basics like food, housing, medical care, and heating? Not very hard 07/21/2022 PHQ-2 Answer Date Recorded PHQ-2 Total Score 6 09/20/2021 Hunger Vital Sign Answer Date Recorded Within the past 12 months, y ou worried that your food would run out before you got the money to buy more. Never true 07/21/20 22 Within the past 12 months, t he food you bought just didn't last and you didn't have money to get more. Never true 07/21/2022 PRAPARE - Transportation Answer Date Re corded In the past 12 months, has l ack of transportation kept you from medical appointments or from getting medications? No 07/06 In the past 12 months, has l ack of transportation kept you from meetings, work, or from getting things needed for daily living? No 07/21/2022 Housing Stability Vital Sign Answer Alden e Recorded In the last 12 months, was t here a time when you were not able to pay the mortgage or rent on time? No 07/21/2022 Number of Places Lived in the Last Year Not on f ile 07/21/2022 In the last 12 months, was t here a time when you did not have a steady place to sleep or slept in a retirement (including now)? No 07/21/2022 Sex and Gender Information Value Date Recorded [...] suspected to have Coronavirus/COVID-19? No / Unsure 09/12/2022 10:00 AM EST documented as of this encounter Plan of Treatment Upcoming Encounters Date Type Department Care Team (Late st Contact Info) Description 2025 8:00 AM EST Office Visit [address] [phone] Madhav Mcfadden MD [address] [place] [address] 09/01/2025 9:20 AM EST Office Visit [id number] [address] [phone] Reji Mi, DO [address] [place] [address] 09/29/2025 9:20 AM EST Office Visit [id number] [address] [phone] Reji Mi, DO [address] [place] [address] 10/27/2025 9:40 AM EDT Office Visit [id number] [address] [phone] Reji Mi, DO [address] [place] [address] 12/01/2025 9:40 AM EDT Office Visit [id number] [address] [phone] Reji Mi, DO [address] [place] [address] 02/03/2026 9:30 AM EDT Telemedicine [facility] Endocrinology [address] [place] [address] Ifeoma Hanson MD [address] [place] [address] documented as of this encounter Goals Goal [...] and he was provided today with a [facility] HEP., ongoing OT LTG 2 Occupational Therapy No Maida Benito, OT Note: Patient will decrease Quick Dash score from 79.5 to 10 or less in order to complete functional tasks with greater ease x 12 weeks 06/18/2019 Scored the same today, ongoing OT LTG 3 Occupational Therapy No Maida Benito, OT Note: Patient will increase L window glazier helper strength (4lbs) to 60 lbs or more in order to open pill bottles with greater ease x12 weeks Patient will increase L lateral pinch (3.5), L tip pinch (2.5), L 3 jaw pinch (2.5) by 5 lbs each in order for greater ease with typing x12 weeks. 06/18/2019 L window glazier helper- 20 lbs L lateral pinch- 6.2 Tip [...] documented as of this encounter Care Teams Load Blocker Relationship Specialty Start Date End Date Madhav Mcfadden MD [address] [place] [address] PCP - General Family Medicine 01/16/22 Madhav Mcfadden MD [address] [place] [address] PCP - [employer] Commercial Attributed 07/06/22 07/05/23 Cathleen Allan MD Urology 09/15/16 Pete Hester MD [address] [place] [address] Surgery, Orthopedic 08/15/19 Anthony Gallegos, Pati [place], PhD [address] [place] [address] Clinical Psychologist Psychology 09/16/21 Yasmine Cohen, RN [address] [place] [address] [facility] Community Bag Machine Adjuster 07/21/22 08/26/23 Bre Almaguer, RN 1290 [facility] 4 [place] [address] [facility] Community Bag Machine Adjuster 10/03/22 11/13/22 Romero Pryor MD [address] [place] [address] Cardiovascular Disease 02/05/23 Prerna Paulino MD [address] [place] [address] Internal Medicine 07/04/24 Magda Davis MD [address] [place] [address] Gastroenterology 07/04/24 Ifeoma Hanson MD [address] [place] [address] Endocrinology 07/04/24 Ifeoma Hanson MD [address] [place] [address] Endocrinology 11/26/24 documented as of this encounter
--- OUTSIDE RECORDS SUMMARY | 2025-07-24 20:30 | XMS_ITS | Encounter Summary ---
Author Organization [facility] Address [address] [place] [address] Care Team Providers Care Glass Novelty Maker Name Role Phone Bianka Kelly APRN Primary Care Provider U Jacqueline Campos MD Primary Care Provider Unava ilable Jacqueline Kay MD Primary Care Provider Unava Jacqueline Valdez MD Unavailable Unavailable Jacqueline Kay MD Unavailable Unavailable Stephanie Darnell I SALESPERSON SEWING MACHINES Unavailable [phone] Stephanie Darnell I SALESPERSON SEWING MACHINES Unavailable [phone] Cathleen Allan MD Unavailable [phone] Pete Hester MD Unavailable [phone] Pati Armendariz PhD Unavailabl e Madhav Mcfadden MD Primary Care Provider [phone] Jacqueline Kay MD Unavailable Unavailable Yasmine Cohen RN Unavailable Unavaila ble Bre Almaguer RN Unavailable [phone] Madhav Mcfadden MD Unavailable [phone] Romero Pryor MD Unavailable [phone] Prerna Paulino MD Unavailable [phone] Magda Davis MD Unavailable [phone] Ifeoma Hanson MD Unavailable Ifeoma Hanson MD Unavailable [phone] Encounter Details Date Type Department Care Team (Late st Contact Info) Description 09/04/2016 Scanned Document [facility] [address] [facility] [place] [address] Provider, Generic Social History Tobacco Use Types Packs/Day Years [...] Description 2025 8:00 AM EST Office Visit [address] [phone] Madhav Mcfadden MD [address] [place] [address] 09/01/2025 9:20 AM EST Office Visit [id number] [address] [phone] Reji Mi, DO [address] [place] [address] [phone] 09/29/2025 9:20 AM EST Office Visit [id number] [address] [phone] Reji Mi, DO [address] [place] [address] [phone] 10/27/2025 9:40 AM EDT Office Visit [id number] [address] [place] [phone] ShmuelReji silveril, DO [address], [place] [phone] 12/01/2025 9:40 AM EDT Office Visit [id number] [address] [place] [phone] ShmuelRejiil, DO [address], [place] [phone] 02/03/2026 9:30 AM EDT [facility] Endocrinology [address] [place] [address] Ifeoma Hanson MD [address] [place] [address] documented as of this encounter Visit Diagnoses Not on filedocumented in this encounter Additional Health Concerns Infection Onset Date Last Indicated Resolved Time R/O Gastrointestinal Infection 10/31/2022 10/31/2022 11/02/2022 11:58 AM EDT R/O C. Difficile 10/31/2022 10/31/2022 11/02/2022 11:58 AM EDT documented as of this encounter Care Teams Glass Novelty Maker Relationship Specialty Start Date End Date Bianka Kelly APRN PCP - General Family Medicine 06/15/16 10/31/17 Jacqueline Kay MD PCP - General Family Medicine 11/01/17 04/28/21 Jacqueline Kay MD PCP - General Family Medicine 04/29/21 01/15/22 Jacqueline Kay MD PCP - [employer] Commercial Attributed 06/06/20 07/05/20 Stephanie Darnell APRN [address] [place] [phone] PCP - [employer] Commercial Attributed 07/06/20 10/03/20 Mann Stephaniestephanie Butt APRN [address] [address] PCP - [employer] Commercial Attributed 05/06/21 11/03/21 Madhav Mcfadden MD [address] [place] [phone] PCP - General Family Medicine 01/16/22 Jacqueline Kay MD PCP - [employer] Commercial Attributed 11/04/21 07/05/22 Madhav Mcfadden MD [address] [place] [phone] PCP - [employer] Commercial Attributed 07/06/22 07/05/23 Jacqueline Kay MD Family Medicine 04/29/21 03/30/22 Cathleen Allan MD [address] [place] [phone] Urology 09/15/16 Pete Hester MD [address] [place] [address] Surgery, Orthopedic 08/15/19 Pati Armendariz, PhD [address] [place] [address] [phone] Clinical Psychologist Psychology 09/16/21 Yasmine Cohen, RN [address] [place] [address] [facility] Community Crop Or Grain Farmer 07/21/22 08/26/23 Ber Almaguer, RN [address] [address] [facility] Community Crop Or Grain Farmer 10/03/22 11/13/22 Romero Pryor MD [address] [place], [place] [phone] Cardiovascular Disease 02/05/23 Prerna Paulino MD [address] [place], [place] [phone] Internal Medicine 07/04/24 Magda Davis MD [address] [place], [place] [phone] Gastroenterology 07/04/24 Ifeoma Hanson MD [address] [place], [place] [phone] Endocrinology 07/04/24 Ifeoma Hanson MD [address] [place], [place] [phone] Endocrinology 11/26/24 documented as of this encounter
--- OUTSIDE RECORDS SUMMARY | 2025-07-24 20:30 | XMS_ITS | Encounter Summary ---
Author Organization [facility] Address [address] [place] [address] Care Team Providers Care Medical Physicist Name Role Phone Jacqueline Kay MD Unavailable Unavailable Cathleen Allan MD Unavailable [phone] Pete Hester MD Unavailable [phone] Pati Armendariz PhD Unavailabl e Madhav Mcfadden MD Primary Care Provider [phone] Jacqueline Kay MD Unavailable Unavailable Yasmine Cohen RN Unavailable Unavaila Bre Pete RN Unavailable [phone] Madhav Mcfadden MD Unavailable [phone] Romero Pryor MD Unavailable [phone] Prerna Paulino MD Unavailable [phone] Magda Davis MD Unavailable [phone] Ifeoma Hanson MD Unavailable [phone] Ifeoma Hanson MD Unavailable [phone] Encounter Details Date Type Department Care Team (Late st Contact Info) Description 02/03/2022 Scanned Document [address] [address] Primary Care, Scan Social History Tobacco Use Types Packs/Day [...] suspected to have Coronavirus/COVID-19? No / Unsure 01/16/2022 1:31 PM EDT documented as of this encounter Plan of Treatment Upcoming Encounters Date Type Department Care Team (Late st Contact Info) Description 2025 8:00 AM EST Office Visit [address] [address] Madhav Mcfadden MD [address] [place] [address] [phone] 09/01/2025 9:20 AM EST Office Visit [id number] [address] [phone] Reji Mi, DO [address] [place] [address] [phone] 09/29/2025 9:20 AM EST Office Visit [id number] [address] [phone] Reji Mi, DO [address] [place] [address] [phone] 10/27/2025 9:40 AM EDT Office Visit [id number] [address] [place] [phone] Shmuel Reji Joni, DO [address], [place] [phone] 12/01/2025 9:40 AM EDT Office Visit [id number] [address] [place] [address] Reji Mi, DO [address], [place] [phone] 02/03/2026 9:30 AM EDT Telemedicine [facility] Endocrinology [place] [address] [place] [phone] Ifeoma Hanson MD [address] [place] [address] [phone] documented as of this encounter Goals Goal [...] and he was provided today with a [facility]., ongoing OT LTG 2 Occupational Therapy No Maida Benito, OT Note: Patient will decrease Quick Dash score from 79.5 to 10 or less in order to complete functional tasks with greater ease x 12 weeks 06/18/2019 Scored the same today, ongoing OT LTG 3 Occupational Therapy No Maida Benito, OT Note: Patient will increase L assistant spa manager strength (4lbs) to 60 lbs or more in order to open pill bottles with greater ease x12 weeks Patient will increase L lateral pinch (3.5), L tip pinch (2.5), L 3 jaw pinch (2.5) by 5 lbs each in order for greater ease with typing x12 weeks. 06/18/2019 L assistant spa manager- 20 lbs L lateral pinch- 6.2 Tip [...] documented as of this encounter Care Teams Medical Physicist Relationship Specialty Start Date End Date Madhav Mcfadden MD [address] [place] [address] PCP - General Family Medicine 01/16/22 Jacqueline Kay MD PCP - [employer] Commercial Attributed 11/04/21 07/05/22 [place] [address] [place], [place] [phone] PCP - [employer] Commercial Attributed 07/06/22 07/05/23 Jacqueline Kay MD Family Medicine 04/29/21 03/30/22 Cathleen Allan MD Urology 09/15/16 Pete Hester MD [address] [place] [address] Surgery, Orthopedic 08/15/19 Pati Armendariz, PhD [address] [place] [address] Clinical Psychologist Psychology 09/16/21 Yasmine Cohen RN ICP Community Technical Programs Manager 07/21/22 08/26/23 Bre Almaguer RN [address] [address] [facility] Community Technical Programs Manager 10/03/22 11/13/22 Romero Pryor MD [address] [place] [address] Cardiovascular Disease 02/05/23 Prerna Paulino MD [address] [place] [address] Internal Medicine 07/04/24 Magda Davis MD [address] [place] [address] [address] [place] [address] Gastroenterology 07/04/24 Ifeoma Hanson MD [address] [place] [address] Endocrinology 07/04/24 Ifeoma Hanson MD [address] [place] [address] Endocrinology 11/26/24 documented as of this encounter
--- OUTSIDE RECORDS SUMMARY | 2025-07-24 20:30 | XMS_ITS | Encounter Summary ---
Author Organization [facility] Address [address] [place] [address] Care Team Providers Care Successfactors Consultant Name Role Phone Bianka Kelly APRN Primary Care Provider U Axel Martinez MD Primary Care Provider Unavaila Bianka Stahl APRN Primary Care Provider U Jacqueline Campos MD Primary Care Provider Unava jaydaable Jacqueline Kay MD Primary Care Provider Unava Jacqueline Valdez MD Unavailable Unavailable Jacqueline Kay MD Unavailable Unavailable Stephanie Darnell APRN Unavailable [phone] Stephanie Darnell I MEDICAL SPECIALIST Unavailable [phone] Cathleen Allan MD Unavailable [phone] Pete Hester MD Unavailable [phone] Pati Armendariz PhD Unavailabl e Madhav Mcfadden MD Primary Care Provider [phone] Jacqueline Kay MD Unavailable Unavailable Yasmine Cohen RN Unavailable Unavaila Bre Pete RN Unavailable [phone] Madhav Mcfadden MD Unavailable [phone] Romero Pryor MD Unavailable [phone] Prerna Paulino MD Unavailable [phone] Magda Davis MD Unavailable [phone] Ifeoma Hanson MD Unavailable [phone] Ifeoma Hanson MD Unavailable [phone] Encounter Details Date Type Department Care Team (Late st Contact Info) Description 12/20/2015 Scanned Document [address] [phone] Provider, Generic Social History Tobacco Use Types [...] Description 2025 8:00 AM EST Office Visit [address] [phone] Madhav Mcfadden MD [address] [place] [address] 09/01/2025 9:20 AM EST Office Visit [id number] [address] [phone] Reji Mi, DO [address] [place] [address] [phone] 09/29/2025 9:20 AM EST Office Visit [id number] [address] [phone] Reji Mi, DO [address] [phone] 10/27/2025 9:40 AM EDT Office Visit [facility] PA[id number] [address] [place] [phone] ShmuelReji silver, DO [address] [phone] 12/01/2025 9:40 AM EDT Office Visit [facility] PA[id number] [address] [place] [phone] ShmuelReji, DO [address] [phone] 02/03/2026 9:30 AM EDT Telemedicine [facility] Endocrinology [address] [address] Ifeoma Hanson MD [address] [place] [address] documented as of this encounter Visit Diagnoses Not on filedocumented in this encounter Additional Health Concerns Infection Onset Date Last Indicated Resolved Time R/O Gastrointestinal Infection 10/31/2022 10/31/2022 11/02/2022 11:58 AM EDT R/O C. Difficile 10/31/2022 10/31/2022 11/02/2022 11:58 AM EDT documented as of this encounter Care Teams Successfactors Consultant Relationship Specialty Start Date End Date Bianka Kelly APRN PCP - General Family Medicine 08/28/15 06/11/16 Axel Major MD PCP - General Endocrinology 06/12/16 06/14/16 Bianka Kelly APRN PCP - General Family Medicine 06/15/16 10/31/17 Jacqueline Kay MD PCP - General Family Medicine 11/01/17 04/28/21 Jacqueline Kay MD PCP - General Family Medicine 04/29/21 01/15/22 Jacqueline Kay MD PCP - [employer] Commercial Attributed 06/06/20 07/05/20 Stephanie Darnell I, MEDICAL SPECIALIST [address] [address] PCP - [employer] Commercial Attributed 07/06/20 10/03/20 Stephanie Darnell I, MEDICAL SPECIALIST [address] [place] [address] PCP - [employer] Commercial Attributed 05/06/21 11/03/21 Madhav Mcfadden MD [address] [place] [address] PCP - General Family Medicine 01/16/22 Jacqueline Kay MD PCP - [employer] Commercial Attributed 11/04/21 07/05/22 Madhav Mcfadden MD [address] [place] [address] PCP - [employer] Commercial Attributed 07/06/22 07/05/23 Jacqueline Kay MD Family Medicine 04/29/21 03/30/22 Cathleen Allan MD [address] [place] [phone] Urology 09/15/16 Pete Hester MD [address] [address] Surgery, Orthopedic 08/15/19 Pati Armendariz, PhD [address] [place] [address] Clinical Psychologist Psychology 09/16/21 Yasmine Cohen, RN [address] [place] [address] [facility] Community Sharepoint Net Developer 07/21/22 08/26/23 Bre Almaguer, RN [address] [address] [facility] Community Sharepoint Net Developer 10/03/22 11/13/22 Romero Pryor MD [address] [place] [address] Cardiovascular Disease 02/05/23 Prerna Paulino MD [address] [place] [address] Internal Medicine 07/04/24 Magda Davis MD [address] [place] [address] Gastroenterology 07/04/24 Ifeoma Hanson MD [address] [place] [address] Endocrinology 07/04/24 Ifeoma Hanson MD [address] [place] [address] Endocrinology 11/26/24 documented as of this encounter
--- OUTSIDE RECORDS SUMMARY | 2025-07-24 20:30 | XMS_ITS | Encounter Summary ---
Author Organization [facility] Address [address] [place] [address] Care Team Providers Care Railroad Surveyor Name Role Phone Jacqueline Kay MD Primary Care Provider Unava ilable Jacqueline Kay MD Unavailable Unavailable Cathleen Allan MD Unavailable [phone] Pete Hester MD Unavailable [phone] Pati Armendariz PhD Unavailabl e Madhav Mcfadden MD Primary Care Provider [phone] Jacqueline Kay MD Unavailable Unavailable Yasmine Cohen RN Unavailable Unavaila Bre Pete RN Unavailable [phone] Madhav Mcfadden MD Unavailable [phone] Romero Pryor MD Unavailable [phone] Prerna Paulino MD Unavailable [phone] Magda Davis MD Unavailable [phone] Ifeoma Hanson MD Unavailable [phone] Ifeoma Hanson MD Unavailable [phone] Encounter Details Date Type Department Care Team (Late st Contact Info) Description 12/14/2021 Scanned Document [facility] HOME HEALTH SCAN Home Health Services, Scan Social History Tobacco Use Types Packs/Day [...] 2025 8:00 AM EST Office Visit [address] [address] Madhav Mcfadden MD [address] [place] [address] 09/01/2025 9:20 AM EST Office Visit [id number] [address] [phone] Reji Mi, [address] [phone] 09/29/2025 9:20 AM EST Office Visit MG PAIN MGMT [id number] [address] [address] Reji Mi, DO [address] [place] [address] [phone] 10/27/2025 9:40 AM EDT Office Visit [facility] PA[id number] [address] [phone] Reji Mi, DO [address] [place] [address] [phone] 12/01/2025 9:40 AM EDT Office Visit MG PAIN MGMT [id number] [address] [place] [phone] Reji iM DO [address], [place] [phone] 02/03/2026 9:30 AM EDT Telemedicine [facility] Endocrinology [place] [address] [place] [phone] Ifeoma Hanson MD [address] [place] [address] documented as of this encounter Goals Goal Patient Goal Type Associated Problems Recent Progress Patient-Stated? Author OT LTG 1 Occupational Therapy No Maida Benito, DON Note: Patient will be independent with HEP for strengthening, desensitization, and coordination x12 weeks. 06/18/2019 He is independent with a desensitization HEP including scrubbing and using a rough cloth over arm, a theraputty HEP, and he was provided today with a [facility] HEP., ongoing OT LTG 2 Occupational Therapy No Maida Benito, OT Note: Patient will decrease Quick Dash score from 79.5 to 10 or less in order to complete functional tasks with greater ease x 12 weeks 06/18/2019 Scored the same today, ongoing OT LTG 3 Occupational Therapy No Maida Benito, DON Note: Patient will increase L planetarium sky show technician strength (4lbs) to 60 lbs or more in order to open pill bottles with greater ease x12 weeks Patient will increase L lateral pinch (3.5), L tip pinch (2.5), L 3 jaw pinch (2.5) by 5 lbs each in order for greater ease with typing x12 weeks. 06/18/2019 L planetarium sky show technician- 20 lbs L lateral pinch- 6.2 Tip [...] documented as of this encounter Care Teams Railroad Surveyor Relationship Specialty Start Date End Date Jacqueline Kay MD PCP - General Family Medicine 04/29/21 01/15/22 Madhav Mcfadden MD [address] [place] [address] PCP - General Family Medicine 01/16/22 Jacqueline Kay MD PCP - [employer] Commercial Attributed 11/04/21 07/05/22 Madhav Mcfadden MD [address] [place] [address] PCP - [employer] Commercial Attributed 07/06/22 07/05/23 Jacqueline Kay MD Family Medicine 04/29/21 03/30/22 Cathleen Allan MD Urology 09/15/16 Pete Hester MD [address] [place] [address] Surgery, Orthopedic 08/15/19 Pati Armendariz, PhD [address] [place] [address] Clinical Psychologist Psychology 09/16/21 Yasmine Cohen, [facility] Community Teacher Dramatics 07/21/22 08/26/23 Bre Almaguer, RN [address] [address] [facility] Community Teacher Dramatics 10/03/22 11/13/22 Romero Pryor MD [address] [place] [address] Cardiovascular Disease 02/05/23 Prerna Paulino MD [address] [place] [address] Internal Medicine 07/04/24 Magda Davis MD [address] [place] [address] [address] [place] [address] Gastroenterology 07/04/24 Ifeoma Hanson MD [address] [place] [address] Endocrinology 07/04/24 [place] [address] [place] [address] Endocrinology 11/26/24 documented as of this encounter
--- OUTSIDE RECORDS SUMMARY | 2025-07-24 20:30 | XMS_ITS | Encounter Summary ---
Author Organization [facility] Address [address] [place] [address] Care Team Providers Care Letter Of Credit Clerk Name Role Phone Jacqueline Kay MD Unavailable Unavailable Cathleen Allan MD Unavailable [phone] Pete Hester MD Unavailable [phone] Pati Armendariz PhD Unavailabl e Madhav Mcfadden MD Primary Care Provider [phone] Jacqueline Kay MD Unavailable Unavailable Yasmine Cohen RN Unavailable Unavaila Bre Pete RN Unavailable [phone] Madhav Mcfadden MD Unavailable [phone] Romero Pryor MD Unavailable [phone] Prerna Paulino MD Unavailable [phone] Magda Davis MD Unavailable [phone] Ifeoma Hanson MD Unavailable [phone] Ifeoma Hanson MD Unavailable [phone] Encounter Details Date Type Department Care Team ([facility] st Contact Info) Description 01/24/2022 Scanned Document [facility] PRIMARY CARE SCAN Primary Care, Scan Social History Tobacco Use [...] Description 2025 8:00 AM EST Office Visit [address] [address] Madhav Mcfadden MD [address] [place] [address] 09/01/2025 9:20 AM EST Office Visit [facility] [id number] [address] [phone] Reji Mi, DO [address] [place] [phone] 09/29/2025 9:20 AM EST Office Visit [facility] [id number] [address] [address] Reji Mi, DO [address] [place] [address] [phone] 10/27/2025 9:40 AM EDT Office Visit [facility] [id number] [address] [phone] Reji Mi, DO [address], [place] [phone] 12/01/2025 9:40 AM EDT Office Visit [facility] [id number] [address] [place] [address] Reji Mi, DO [address], [place] [phone] 02/03/2026 9:30 AM EDT Telemedicine [facility] Endocrinology Marvin [address] [place] [phone] Ifeoma Hanson MD [address] [place], [place] [phone] documented as of this encounter Goals Goal [...] and he was provided today with a [facility] HEP., ongoing OT LTG 2 Occupational Therapy No Maida Benito, OT Note: Patient will decrease Quick Dash score from 79.5 to 10 or less in order to complete functional tasks with greater ease x 12 weeks 06/18/2019 Scored the same today, ongoing OT LTG 3 Occupational Therapy No Maida Benito, OT Note: Patient will increase L pipe insulator strength (4lbs) to 60 lbs or more in order to open pill bottles with greater ease x12 weeks Patient will increase L lateral pinch (3.5), L tip pinch (2.5), L 3 jaw pinch (2.5) by 5 lbs each in order for greater ease with typing x12 weeks. 06/18/2019 L pipe insulator- 20 lbs L lateral pinch- 6.2 Tip [...] documented as of this encounter Care Teams Letter Of Credit Clerk Relationship Specialty Start Date End Date Madhav Mcfadden MD [address] [place] [address] PCP - General Family Medicine 01/16/22 Jacqueline Kay MD PCP - [employer] Commercial Attributed 11/04/21 07/05/22 Madhav Mcfadden MD [address] [place] [address] PCP - [employer] Commercial Attributed 07/06/22 07/05/23 Jacqueline Kay MD Family Medicine 04/29/21 03/30/22 Cathleen Allan MD Urology 09/15/16 Pete Hester MD [address] [place] [address] Surgery, Orthopedic 08/15/19 Pati Armendariz, PhD [address] [place] [address] Clinical Psychologist Psychology 09/16/21 Yasmine Cohen, RN [facility] Community Sod Cutter 07/21/22 08/26/23 Bre Almaguer, RN [address] [address] [facility] Community Sod Cutter 10/03/22 11/13/22 Romero Pryor MD [address] [place] [address] Cardiovascular Disease 02/05/23 Prerna Paulino MD [address] [place] [address] Internal Medicine 07/04/24 Magda Davis MD [address] [place], [place] [phone] Gastroenterology 07/04/24 Ifeoma Hanson MD [address] [place] [address] Endocrinology 07/04/24 Ifeoma Hanson MD [address] [place] [address] Endocrinology 11/26/24 documented as of this encounter
--- OUTSIDE RECORDS SUMMARY | 2025-07-24 20:30 | XMS_ITS | Encounter Summary ---
Author Organization [facility] Address [address] [place] [address] Care Team Providers Care Implementation Architect Name Role Phone Cathleen Allan MD Unavailable [phone] Pete Hester MD Unavailable [phone] Pati Armendariz PhD Unavailabl e Madhav Mcfadden MD Primary Care Provider [phone] Jacqueline Kay MD Unavailable Unavailable Yasmine Cohen RN Unavailable Unavaila ble Bre Almaguer RN Unavailable [phone] Madhav Mcfadden MD Unavailable [phone] Romero Pryor MD Unavailable Prerna Paulino MD Unavailable [phone] Magda Davis MD Unavailable [phone] Ifeoma Hanson MD Unavailable [phone] Ifeoma Hanson MD Unavailable [phone] Encounter Details Date Type Department Care Team (Late st Contact Info) Description 06/16/2022 Scanned Document [facility] [address] [phone] Axel Tovar MD [address] [place] [address] [address] [place], [place] [phone] Social History Tobacco Use Types Packs/Day Years Used Date Smoking Tobacco: Never Smokeless Tobacco: Never Alcohol Use Standard Drinks/Week Comments Not Currently 0 (1 standard drink = 0.6 oz pur e alcohol) PHQ-2 Answer Date Recorded PHQ-2 Total Score [...] suspected to have Coronavirus/COVID-19? No / Unsure 05/31/2022 9:08 AM EDT documented as of this encounter Plan of Treatment Upcoming Encounters Date Type Department Care Team (Late st Contact Info) Description 2025 8:00 AM EST Office Visit [address] [phone] Madhav Mcfadden MD [address] [place] [phone] 09/01/2025 9:20 AM EST Office Visit [facility] [id number] [address] [phone] Reji Mi, DO [address] [place] [phone] 09/29/2025 9:20 AM EST Office Visit [facility] [id number] [address] [phone] Reji Mi, DO [address] [place] [phone] 10/27/2025 9:40 AM EDT Office Visit [facility] [id number] [address] [place] [phone] Reji Mi, DO [address], [place] [phone] 12/01/2025 9:40 AM EDT Office Visit [facility] PA[facility] [id number] [address] [place] [phone] Reji Miil, DO [address], [place] [phone] 02/03/2026 9:30 AM EDT Telemedicine [facility] Endocrinology [address] [place] [address] Ifeoma Hanson MD [address] [place] [address] documented as of this encounter Goals Goal [...] and he was provided today with a [facility] HEP., ongoing OT LTG 2 Occupational Therapy No Maida Benito, DON Note: Patient will decrease Quick Dash score from 79.5 to 10 or less in order to complete functional tasks with greater ease x 12 weeks 06/18/2019 Scored the same today, ongoing OT LTG 3 Occupational Therapy No Maida Benito, DON Note: Patient will increase L winding lathe operator strength (4lbs) to 60 lbs or more in order to open pill bottles with greater ease x12 weeks Patient will increase L lateral pinch (3.5), L tip pinch (2.5), L 3 jaw pinch (2.5) by 5 lbs each in order for greater ease with typing x12 weeks. 06/18/2019 L winding lathe operator- 20 lbs L lateral pinch- 6.2 [...] documented as of this encounter Care Teams Implementation Architect Relationship Specialty Start Date End Date Madhav Mcfadden MD [address] [place] [address] PCP - General Family Medicine 01/16/22 Jacqueline Kay MD PCP - [employer] Commercial Attributed 11/04/21 07/05/22 Madhav Mcfadden MD [address] [place] [phone] PCP - [employer] Commercial Attributed 07/06/22 07/05/23 Cathleen Allan MD Urology 09/15/16 Pete Hester MD [address] [place] [address] Surgery, Orthopedic 08/15/19 Pati Armendariz, PhD [address] [place] [address] Clinical Psychologist Psychology 09/16/21 Yasmine Cohen RN [facility] Community Webbing Supervisor 07/21/22 08/26/23 Bre Almaguer, RN [address] [address] [facility] Community Webbing Supervisor 10/03/22 11/13/22 Romero Pryor MD [address] [place] [address] Cardiovascular Disease 02/05/23 Prerna Paulino MD [address] [place] [address] Internal Medicine 07/04/24 Magda Davis MD [address] [place] [address] Gastroenterology 07/04/24 Ifeoma Hanson MD [address] [place] [address] Endocrinology 07/04/24 Ifeoma Hanson MD [address] [place] [address] Endocrinology 11/26/24 documented as of this encounter
--- OUTSIDE RECORDS SUMMARY | 2025-07-24 20:30 | XMS_ITS | Encounter Summary ---
Author Organization [facility] Address [address] [place] [address] Care Team Providers Care Insurance Office Supervisor Name Role Phone Madhav Mcfadden MD Primary Care Provider [phone] Encounter Details Date Type Department Care Team ([facility] st Contact Info) Description 04/11/2023 Scanned Document [facility] [address] [place] [address] [address] [place], [place] [address] Magda Davis MD [address] [place] [address] Social History Tobacco Use Types [...] Encounter Note - Magda Berman PA - 04/11/2023 2:51 PM EDT [facility] Documentation Note LAB REVIEW OPAT Synopsis can be found Here Summary of Results Date of lab draw: 04/06/23 Cr= 0.9 (from: 1.0) WBC= 4.1 (from: 4.0) Hg/HCT= 14.0/42.6 (from: 12.5/38.3) CRP= 0.9 (from: 4.5) Was an Adverse Event Identified? No Author's Role RASHID (e.g. [facility] or MANOLO) Total Time Spent on this Encounter (in minutes) 5 minutes documented in this encounter Plan of Treatment Upcoming Encounters Date Type Department Care Team (Late st Contact Info) Description 08/05/2025 1:40 PM EST Appointment [facility] Scan [address] [place] [address]. [place] [address] Bal Villavicencio MD [address] [place] [address] 08/11/2025 4:00 PM EST Evaluation [facility] [address] [place], [place] 168821 Kerry Kaba MD 200 [facility] [address] [place] [address] 08/17/2025 1:00 PM EST Office Visit [facility] [address] [place] [address] Petrona Nesbitt PA [address] [place] [phone] 09/04/2025 10:15 AM EST [facility] at [address] 6[address] [place] [address] Carlos Lo MD [address] [place] [phone] 10/20/2025 4:00 PM EDT Telemedicine [facility] at [address] [place] [address] Prerna Paulino MD [address] [place] [phone] 10/29/2025 9:00 AM EDT Office Visit [facility] [address] [place] [address] Petrona Nesbitt PA [address] [place] [phone] 12/10/2025 10:00 AM EDT Office Visit [facility] [address] [place] [address] Petrona Nesbitt PA [address] [place] [phone] 01/21/2026 10:00 AM EDT Office Visit [facility] [address] [place] [address] Petrona Nesbitt PA [address] [place] [phone] 03/04/2026 10:00 AM EDT Office Visit [facility] [address] [place] [address] Petrona Nesbitt PA [address] [place] [phone] 04/15/2026 10:30 AM EDT Office Visit [facility] [address] [place] [address] [phone] Ebonie Crowley MD [address] [phone] documented as of this encounter Procedures Procedure Name Priority Date/Time Associated Diagnosis Comments LAB SCAN Routine 04/11/2023 documented in this encounter Results * Lab Scan (04/11/2023) Magda Davis MD LAB BLOOD ORDERABLES Final [...] documented as of this encounter Care Teams Insurance Office Supervisor Relationship Specialty Start Date End Date Madhav Mcfadden MD [address] [place] [phone] PCP - General Family Medicine 08/20/23 documented as of this encounter
[2025-07-24 20:31] LABS: MANUAL DIFF FLAG NO
--- OUTSIDE RECORDS SUMMARY | 2025-07-24 20:31 | XMS_ITS | Encounter Summary ---
Author Organization [facility] Address [address] [place] [address] Care Team Providers Care Software Solutions Architect Name Role Phone Jacqueline Kay MD Primary Care Provider Unava ilable Jacqueline Kay MD Primary Care Provider Unava ilable Jacqueline Kay MD Unavailable Unavailable Jacqueline Kay MD Unavailable Unavailable Stephanie Darnell I ROLLER COASTER DESIGNER Unavailable [phone] Stephanie Darnell I ROLLER COASTER DESIGNER Unavailable [phone] Cathleen Allan MD Unavailable [phone] Pete Hester MD Unavailable [phone] Pati Armendariz PhD Unavailabl e Madhav Mcfadden MD Primary Care Provider [phone] Jacqueline Kay MD Unavailable Unavailable Yasmine Cohen RN Unavailable Unavaila ble Bre Almaguer RN Unavailable [phone] Madhav Mcfadden MD Unavailable [phone] Romero Pryor MD Unavailable [phone] Prerna Paulino MD Unavailable [phone] Magda Davis MD Unavailable [phone] Ifeoma Hanson MD Unavailable Ifeoma Hanson MD Unavailable Encounter Details Date Type Department Care Team (Late st Contact Info) Description 06/03/2020 Scanned Document [facility] Keron [address] [place] [address] [place] [address] Cardiology, Scan Social History Tobacco Use Types Packs/Day Years Used Date Smoking Tobacco: Never Smokeless Tobacco: Never Alcohol Use Standard Drinks/Week Comments Yes 0 (1 standard drink = 0.6 oz pur e alcohol) 4 beers Once a month Sex and Gender Information Value Date Recorded Sex Assigned at Male 08/16/2022 10:08 AM EST Legal Sex Male 2:40 PM EDT Gender Identity Male 08/16/2022 10:08 AM EST Sexual Orientation Heterosexual (straight) 08/16 10:08 AM EST COVID-19 Exposure Response Date Recorded In the last month, have you been in contact with someone who was confirmed or suspected to have Coronavirus / COVID-19? No / Unsure 06/03/2020 11:10 AM EDT documented as of this encounter Plan of Treatment Upcoming Encounters Date Type Department Care Team (Late st Contact Info) Description 2025 8:00 AM EST Office Visit [address] [phone] Madhav Mcfadden MD [address] [place] [address] 09/01/2025 9:20 AM EST Office Visit [facility] PA[facility] MGMT [id number] [address] [address] Reji Mi DO [address] [place] [phone] 09/29/2025 9:20 AM EST Office Visit [facility] MGMT [id number] [address] [address] Reji Mi DO [address], [place] [phone] 10/27/2025 9:40 AM EDT Office Visit [facility] PA[facility]MT [id number] [address] [place] [phone] Reji Mi, DO [address], [place] [phone] 12/01/2025 9:40 AM EDT Office Visit MG PAIN MGMT [id number] [address] [place] [phone] Reji Mi, DO [address], [place] [phone] 02/03/2026 9:30 AM EDT Telemedicine [facility] Endocrinology [address] [address] Ifeoma Hanson MD [address] [place] [address] [phone] documented as of this encounter Goals Goal [...] and he was provided today with a [facility] HEP., ongoing OT LTG 2 Occupational Therapy No Maida Benito, OT Note: Patient will decrease Quick Dash score from 79.5 to 10 or less in order to complete functional tasks with greater ease x 12 weeks 06/18/2019 Scored the same today, ongoing OT LTG 3 Occupational Therapy No Maida Benito, OT Note: Patient will increase L creative services intern strength (4lbs) to 60 lbs or more in order to open pill bottles with greater ease x12 weeks Patient will increase L lateral pinch (3.5), L tip pinch (2.5), L 3 jaw pinch (2.5) by 5 lbs each in order for greater ease with typing x12 weeks. 06/18/2019 L creative services intern- 20 lbs L lateral pinch- 6.2 Tip [...] Procedure Name Priority Date/Time Associated Diagnosis Comments STRESS TEST 06/03/2020 documented in this encounter Results * STRESS TEST (06/03/2020) Anatomical Region Laterality Modality Other 06/03/2020 us Scan Cardiology HX AMB PROCEDURES Edited Result - Final documented in this encounter Visit Diagnoses Not on filedocumented in this encounter Additional Health Concerns Infection Onset Date Last Indicated Resolved Time R/O Gastrointestinal Infection 10/31/2022 10/31/2022 11/02/2022 11:58 AM EDT R/O C. Difficile 10/31/2022 10/31/2022 11/02/2022 11:58 AM EDT documented as of this encounter Care Teams Software Solutions Architect Relationship Specialty Start Date End Date Jacqueline Kay MD PCP - General Family Medicine 11/01/17 04/28/21 Jacqueline Kay MD PCP - General Family Medicine 04/29/21 01/15/22 Jacqueline Kay MD PCP - [employer] Commercial Attributed 06/06/20 07/05/20 Stephanie Darnell APRN [address] [address] PCP - [employer] Commercial Attributed 07/06/20 10/03/20 Stephanie Darnell APRN [address] [address] PCP - [employer] Commercial Attributed 05/06/21 11/03/21 Madhav Mcfadden MD [address] [place], [place] 3[address] PCP - General Family Medicine 01/16/22 Jacqueline Kay MD PCP - [employer] Commercial Attributed 11/04/21 07/05/22 Madhav Mcfadden MD [address] [place] [address] PCP - [employer] Commercial Attributed 07/06/22 07/05/23 Jacqueline Kay MD Family Medicine 04/29/21 03/30/22 Cathleen Allan MD [address] [place] [address] 1022 [place] [address] Urology 09/15/16 Pete Hester MD [address] [place] [address] Surgery, Orthopedic 08/15/19 Pati Armendariz, PhD [address] [place] [address] Clinical Psychologist Psychology 09/16/21 Yasmine Cohen, RN [address] [place] [address] ICP Community Computer Repair Engineer 07/21/22 08/26/23 Bre Almaguer, RN [address] [address] ICP Community Computer Repair Engineer 10/03/22 11/13/22 Romero Pryor MD [address] [place] [address] Cardiovascular Disease 02/05/23 Prerna Paulino MD [address] [place] [address] Internal Medicine 07/04/24 Magda Davis MD [address] [place] [address] Gastroenterology 07/04/24 Ifeoma Hanson MD [address] [place] [address] Endocrinology 07/04/24 Ifeoma Hanson MD [address] [place] [address] Endocrinology 11/26/24 documented as of this encounter
--- OUTSIDE RECORDS SUMMARY | 2025-07-24 20:31 | XMS_ITS | Encounter Summary ---
Author Organization [facility] Address [address] [place] [address] Care Team Providers Care Stenotypist Name Role Phone Jacqueline Kay MD Primary Care Provider Unava ilable Jacqueline Kay MD Primary Care Provider Unava ilable Jacqueline Kay MD Unavailable Unavailable Stephanie Darnell APRN Unavailable [phone] Cathleen Allan MD Unavailable [phone] Pete Hester MD Unavailable [phone] Pati Armendariz PhD Unavailabl e Madhav Mcfadden MD Primary Care Provider [phone] Jacqueline Kay MD Unavailable Unavailable Yasmine Cohen RN Unavailable Unavaila Bre Pete RN Unavailable [phone] Madhav Mcfadden MD Unavailable [phone] Romero Pryor MD Unavailable [phone] Prerna Paulino MD Unavailable [phone] Magda Davis MD Unavailable [phone] Ifeoma Hanson MD Unavailable [phone] Ifeoma Hanson MD Unavailable [phone] Encounter Details Date Type Department Care Team (Late st Contact Info) Description 10/25/2020 Scanned Document [address] [facility] [place] [phone] Gastroenterology, Scan Social History Tobacco Use Types Packs/Day [...] have Coronavirus / COVID-19? No / Unsure 10/25/2020 2:37 PM EDT documented as of this encounter Plan of Treatment Upcoming Encounters Date Type Department Care Team (Late st Contact Info) Description 2025 8:00 AM EST Office Visit [address] [phone] Madhav Mcfadden MD [address] [place] [address] 09/01/2025 9:20 AM EST Office Visit [facility] PA[facility] MGMT [id number] [address] [phone] Reji Mi, DO [address] [place] [phone] 09/29/2025 9:20 AM EST Office Visit [facility] PA[facility] MGMT [id number] [address] [phone] Reji Miil, DO [address] [place] [address] [phone] 10/27/2025 9:40 AM EDT Office Visit MG PAIN MGMT [id number] [address] [place] [phone] ShmuelRejiil, DO [address] [phone] 12/01/2025 9:40 AM EDT Office Visit [facility] PA[facility] MGMT [id number] [address] [place] [phone] Shmuel, Reji Joni, DO [address], [place] [phone] 02/03/2026 9:30 AM EDT Telemedicine [facility] Endocrinology [address] [address] Ifeoma Hanson MD [address] [place] [address] documented as of this encounter Goals Goal [...] and he was provided today with a [facility] HE[facility]., ongoing OT LTG 2 Occupational Therapy No Maida Benito, OT Note: Patient will decrease Quick Dash score from 79.5 to 10 or less in order to complete functional tasks with greater ease x 12 weeks 06/18/2019 Scored the same today, ongoing OT LTG 3 Occupational Therapy No Maida Benito, OT Note: Patient will increase L animal shelter manager strength (4lbs) to 60 lbs or more in order to open pill bottles with greater ease x12 weeks Patient will increase L lateral pinch (3.5), L tip pinch (2.5), L 3 jaw pinch (2.5) by 5 lbs each in order for greater ease with typing x12 weeks. 06/18/2019 L animal shelter manager- 20 lbs L lateral pinch- 6.2 [...] Procedure Name Priority Date/Time Associated Diagnosis Comments HX GASTROENTEROLOGY OTHER TEST/PROCEDURES-SCAN 10/25/2020 documented in this encounter Results * HX GASTROENTEROLOGY OTHER TEST/PROCEDURES-SCAN (10/25/2020) 10/25/2020 us Scan Gastroenterology HX AMB PROCEDURES Edited R esult - Final documented in this encounter Visit Diagnoses Not on filedocumented in this encounter Additional Health Concerns Infection Onset Date Last Indicated Resolved Time R/O Gastrointestinal Infection 10/31/2022 10/31/2022 11/02/2022 11:58 AM EDT R/O C. Difficile 10/31/2022 10/31/2022 11/02/2022 11:58 AM EDT documented as of this encounter Care Teams Stenotypist Relationship Specialty Start Date End Date Jacqueline Kay MD PCP - General Family Medicine 11/01/17 04/28/21 Jacqueline Kay MD PCP - General Family Medicine 04/29/21 01/15/22 Stephanie Darnell APRN [address] [place] [phone] PCP - [employer] Commercial Attributed 05/06/21 11/03/21 Madhav Mcfadden MD [address] [place] [address] PCP - General Family Medicine 01/16/22 Jacqueline Kay MD PCP - [employer] Commercial Attributed 11/04/21 07/05/22 Madhav Mcfadden MD [address] [place] [address] PCP - [employer] Commercial Attributed 07/06/22 07/05/23 Jacqueline Kay MD Family Medicine 04/29/21 03/30/22 Cathleen Allan MD [address] [phone] Urology 09/15/16 Pete Hester MD [address] [place] [address] Surgery, Orthopedic 08/15/19 Pati Armendariz, PhD [address] [place] [address] Clinical Psychologist Psychology 09/16/21 Yasmine Cohen RN ICP Community Systems Architecture Analyst 07/21/22 08/26/23 Bre Almaguer, RN [address] [address] [facility] Community Systems Architecture Analyst 10/03/22 11/13/22 Romero Pryor MD [address] [place] [address] Cardiovascular Disease 02/05/23 Prerna Paulino MD [address] [place] [address] Internal Medicine 07/04/24 Magda Davis MD [address] [place] [address] Gastroenterology 07/04/24 Ifeoma Hanson MD [address] [place] [address] Endocrinology 07/04/24 Ifeoma Hanson MD [address] [place] [address] Endocrinology 11/26/24 documented as of this encounter
--- OUTSIDE RECORDS SUMMARY | 2025-07-24 20:31 | XMS_ITS | Encounter Summary ---
Author Organization [facility] Address [address] [place] [address] Care Team Providers Care Pigeon Fancier Name Role Phone Bianka Kelly APRN Primary Care Provider U Jacqueline Campos MD Primary Care Provider Unava ilable Jacqueline Kay MD Primary Care Provider Unava Jacqueline Valdez MD Unavailable Unavailable Jacqueline Kay MD Unavailable Unavailable Stephanie Darnell I TELEVISION TECHNICIAN Unavailable [phone] Stephanie Darnell I TELEVISION TECHNICIAN Unavailable [phone] Cathleen Allan MD Unavailable [phone] Pete Hester MD Unavailable [phone] Pati Armendariz PhD Unavailabl e Madhav Mcfadden MD Primary Care Provider [phone] Jacqueline Kay MD Unavailable Unavailable Yasmine Cohen RN Unavailable Unavaila ble Bre Almaguer RN Unavailable [phone] Madhav Mcfadden MD Unavailable [phone] Romero Pryor MD Unavailable [phone] Perrna Paulino MD Unavailable [phone] Magda Davis MD Unavailable [phone] Ifeoma Hanson MD Unavailable Ifeoma Hanson MD Unavailable Encounter Details Date Type Department Care Team (Late st Contact Info) Description 09/05/2017 Scanned Document [facility] Keron [address] [facility] [address] Bianka Kelly APRN Social History Tobacco Use [...] Description 2025 8:00 AM EST Office Visit [address] [phone] Madhav Mcfadden MD [address] [place] [address] 09/01/2025 9:20 AM EST Office Visit [facility] [id number] [address] [phone] Reji Miil, DO [address] [place] [phone] 09/29/2025 9:20 AM EST Office Visit [id number] [address] [address] Reji Miil, DO [address] [place] [address] [phone] 10/27/2025 9:40 AM EDT Office Visit [id number] [address] [place] [phone] ShmuelReji silver, DO [address] [phone] 12/01/2025 9:40 AM EDT Office Visit [id number] [address] [place] [phone] ShmuelReji Joni, DO [address] [place] [address] [phone] 02/03/2026 9:30 AM EDT Telemedicine [facility] Endocrinology [address] [phone] Ifeoma Hanson MD [address] [place] [address] documented as of this encounter Visit Diagnoses Not on filedocumented in this encounter Additional Health Concerns Infection Onset Date Last Indicated Resolved Time R/O Gastrointestinal Infection 10/31/2022 10/31/2022 11/02/2022 11:58 AM EDT R/O C. Difficile 10/31/2022 10/31/2022 11/02/2022 11:58 AM EDT documented as of this encounter Care Teams Pigeon Fancier Relationship Specialty Start Date End Date Bianka Kelly APRN PCP - General Family Medicine 06/15/16 10/31/17 Jacqueline Kay MD PCP - General Family Medicine 11/01/17 04/28/21 Jacqueline Kay MD PCP - General Family Medicine 04/29/21 01/15/22 Jacqueline Kay MD PCP - [employer] Attributed 06/06/20 07/05/20 Stephanie Darnell APRN [address] [place] [phone] PCP - [employer] Attributed 07/06/20 10/03/20 Stephanie Darnell APRN [address] [place] [phone] PCP - [employer] Attributed 05/06/21 11/03/21 Madhav Mcfadden MD [address] [phone] PCP - General Family Medicine 01/16/22 Jacqueline Kay MD PCP - [employer] Attributed 11/04/21 07/05/22 Madhav Mcfadden MD [address] [place] [address] PCP - [employer] Attributed 07/06/22 07/05/23 Jacqueline Kay MD Family Medicine 04/29/21 03/30/22 Cathleen Allan MD [address] [place] [phone] Urology 09/15/16 Pete Hester MD [address] [place], [place] [phone] Surgery, Orthopedic 08/15/19 Pati Armendariz, PhD [address] [place], [place] [phone] Clinical Psychologist Psychology 09/16/21 Yasmine Cohen, RN [address] [place] [address] [facility] Community Mutuel Department Manager 07/21/22 08/26/23 Bre Almaguer, RN [address]root [address] [address] [facility] Community Mutuel Department Manager 10/03/22 11/13/22 Romero Pryor MD [address] [place] [address] Cardiovascular Disease 02/05/23 Prerna Paulino MD [address] [place] [address] Internal Medicine 07/04/24 Magda Davis MD [address] [place] [address] Gastroenterology 07/04/24 Ifeoma Hanson MD [address] [place], [place] [phone] Endocrinology 07/04/24 Ifeoma Hanson MD [address] [place] [address] Endocrinology 11/26/24 documented as of this encounter
--- OUTSIDE RECORDS SUMMARY | 2025-07-24 20:31 | XMS_ITS | Encounter Summary ---
Author Organization [facility] Address [address] [place] [address] Care Team Providers Care Experimental Preflight Mechanic Name Role Phone Bianka Kelly APRN Primary Care Provider U Jacqueline Campos MD Primary Care Provider Unava ilable Jacqueline Kay MD Primary Care Provider Unava Jacqueline Valdez MD Unavailable Unavailable Jacqueline Kay MD Unavailable Unavailable Stephanie Darnell I YARD SUPERVISOR Unavailable [phone] Stephanie Darnell I YARD SUPERVISOR Unavailable [phone] Cathleen Allan MD Unavailable [phone] Pete Hester MD Unavailable [phone] Pati Armendariz PhD Unavailabl e Madhav Mcfadden MD Primary Care Provider [phone] Jacqueline Kay MD Unavailable Unavailable Yasmine Cohen RN Unavailable Unavaila ble Bre Almaguer RN Unavailable [phone] Madhav Mcfadden MD Unavailable [phone] Romero Pryor MD Unavailable [phone] Prerna Paulino MD Unavailable [phone] Magda Davis MD Unavailable [phone] Ifeoma Hanson MD Unavailable Ifeoma Hanson MD Unavailable Encounter Details Date Type Department Care Team (Late st Contact Info) Description 09/07/2017 Scanned Document [facility] [address] [place] [address] Provider, Generic Social History Tobacco Use Types [...] Description 2025 8:00 AM EST Office Visit [address] [phone] Madhav Mcfadden MD [address] [place] [address] 09/01/2025 9:20 AM EST Office Visit [id number] [address] [phone] Reji Mi, DO [address] [place] [phone] 09/29/2025 9:20 AM EST Office Visit [facility] PA[id number] [address] [phone] Reji Mi, DO [address] [place] [address] [phone] 10/27/2025 9:40 AM EDT Office Visit [facility] PA[facility]MT [id number] [address] [place] [phone] ShmuelReji Joni, DO [address] [phone] 12/01/2025 9:40 AM EDT Office Visit MG PAIN MGMT [id number] [address] [place] [phone] ShmuelReji Joni, DO [address] [phone] 02/03/2026 9:30 AM EDT Telemedicine [facility] Endocrinology [address] [phone] Ifeoma Hanson MD [address] [place] [address] documented as of this encounter Procedures Procedure Name Priority Date/Time Associated Diagnosis Comments HX GASTROENTEROLOGY COLONOSCOPY-SCAN 09/07/2017 documented in this encounter Results * HX GASTROENTEROLOGY COLONOSCOPY-SCAN (09/07/2017) Narrative 09/07/2017 Ordered by an unspecified provider. us Generic Provider HX AMB PROCEDURES Edited Result - Final documented in this encounter Visit Diagnoses Not on filedocumented in this encounter Additional Health Concerns Infection Onset Date Last Indicated Resolved Time R/O Gastrointestinal Infection 10/31/2022 10/31/2022 11/02/2022 11:58 AM EDT R/O C. Difficile 10/31/2022 10/31/2022 11/02/2022 11:58 AM EDT documented as of this encounter Care Teams Experimental Preflight Mechanic Relationship Specialty Start Date End Date Bianka Kelly APRN PCP - General Family Medicine 06/15/16 10/31/17 Jacqueline Kay MD PCP - General Family Medicine 11/01/17 04/28/21 Jacqueline Kay MD PCP - General Family Medicine 04/29/21 01/15/22 Jacqueline Kay MD PCP - [employer] Commercial Attributed 06/06/20 07/05/20 Stephanie Darnell APRN [address] [phone] PCP - [employer] Commercial Attributed 07/06/20 10/03/20 Stephanie Darnell APRN [address] [place] [address] PCP - [employer] Commercial Attributed 05/06/21 11/03/21 Madhav Mcfadden MD [address] [place] [address] PCP - General Family Medicine 01/16/22 Jacqueline Kay MD PCP - [employer] Commercial Attributed 11/04/21 07/05/22 Madhav Mcfadden MD [address] [place] [address] PCP - [employer] Commercial Attributed 07/06/22 07/05/23 Jacqueline Kay MD Family Medicine 04/29/21 03/30/22 Cathleen Allan MD [address] [place] [phone] Urology 09/15/16 Pete Hester MD [address] [place] [address] Surgery, Orthopedic 08/15/19 Pati Armendariz, PhD [address] [place] [address] [address] [place] [address] Clinical Psychologist Psychology 09/16/21 Yasmine Cohen, RN [address] Community Incident Response Consultant 07/21/22 08/26/23 Bre Almaguer, RAEANN [address] [address] [facility] Community Incident Response Consultant 10/03/22 11/13/22 Romero Pryor MD [address] [place] [address] Cardiovascular Disease 02/05/23 Prerna Paulino MD [address] [place] [address] Internal Medicine 07/04/24 Magda Davis MD [address] [place] [address] Gastroenterology 07/04/24 Ifeoma Hanson MD [address] [place] [address] Endocrinology 07/04/24 Ifeoma Hanson MD [address] [place] [address] Endocrinology 11/26/24 documented as of this encounter
--- OUTSIDE RECORDS SUMMARY | 2025-07-24 20:31 | XMS_ITS | Encounter Summary ---
Author Organization [facility] Address [address] [place] [address] Care Team Providers Care Utility Systems Repairer Operator Name Role Phone Madhav Mcfadden MD Primary Care Provider [phone] Reason for Visit * Reason Onset Date Comments Other 12/17/2023 Encounter Details Date Type Department Care Team ([facility] st Contact Info) Description 12/17/2023 Telephone [facility] [address] [phone] Prerna Paulino MD [address] [phone] Other Social History Tobacco Use Types Packs/Day Years Used Date Smoking Tobacco: Never Smokeless Tobacco: Never Alcohol Use Standard Drinks/Week Comments Not Currently 0 (1 standard drink = 0.6 oz pur e alcohol) Overall Financial Resource Strain (CARDIA) Answe r Date Recorded How hard is it for you to pa y for the very basics like food, housing, medical care, and heating? Not hard at all 08/18/2023 PHQ-2 Answer Date Recorded PHQ-2 Total Score 0 08/18/2023 Hunger Vital Sign Answer Date Recorded Within the past 12 months, y ou worried that your food would run out before you got the money to buy more. Never true 08/18/19 24 Within the past 12 months, t he food you bought just didn't last and you didn't have money to get more. Never true 08/18/2023 PRAPARE - Transportation Answer Date Re corded In the past 12 months, has l ack of transportation kept you from medical appointments or from getting medications? No 08/06 In the past 12 months, has l ack of transportation kept you from meetings, work, or from getting things needed for daily living? No 08/18/2023 Housing Stability Answer Date Recorded What is your living situation today? I have a poncho place to live 08/18/2023 Housing Stability Not on file 08/18/2023 Interpersonal Safety Answer Date Record ed Is there anyone in your life that is hurting or threatening you in anyway? Not on file 11/15/2023 Physical Indicators of Abuse No evidence of phys ical abuse 11/15/2023 Sex and Gender Information Value Date Recorded Sex Assigned at Male 06/16/2025 10:30 AM EST Legal Sex Male 8:50 PM EST Gender Identity Male 06/16/2025 10:30 AM EST Sexual Orientation Not on file documented as of this encounter Miscellaneous Notes * Telephone Encounter - Pati Palumbo - 12/17/2023 10:58 AM EDT Lexie from [facility] is calling in regards to DWO that was faxed on 12/14/23 that requires response from . Patient is on TPN and the [facility] human resources admin is recommending that the patientbe moved to monthly lab work due to his improvements, they need the DWO signed by . Pleasereturn call to [phone] and the DWO can be faxed to [phone] documented in this encounter Plan of Treatment Upcoming Encounters Date Type Department Care Team (Late st Contact Info) Description 08/05/2025 1:40 PM EST Appointment [facility] Scan 35 [facility], [facility] [place], [place] [phone] Bal Villavicencio MD [address] [place] [phone] 08/11/2025 4:00 PM EST Evaluation [facility] 200 [facility], [place] [phone] Kerry Kaba MD [address] [facility] 204 [place] [address] 08/17/2025 1:00 PM EST Office Visit [facility] [address] [place] [address], [place] [address] Petrona Nesbitt PA [address] [place] [phone] 09/04/2025 10:15 AM EST Follow Up [facility] [address] [place] [address] Carlos Lo MD [address] [place] [phone] 10/20/2025 4:00 PM EDT Telemedicine [facility] [address] [place] [address] 40 [facility] [address] [place] [address] Prerna Paulino MD [address] [phone] 10/29/2025 9:00 AM EDT Office Visit [facility] [address] [place] [address], [place] [address] Petrona Nesbitt PA [address] [place] [phone] 12/10/2025 10:00 AM EDT Office Visit [facility] [address] [place] [address], [place] [address] Petrona Nesbitt PA [address] [place] [phone] 01/21/2026 10:00 AM EDT Office Visit [facility] [address] [place] [address], [place] [address] Petrona Nesbitt PA [address] [place] [phone] 03/04/2026 10:00 AM EDT Office Visit [facility] [address] [place] [address], [place] [address] Petrona Nesbitt PA [address] [place] [phone] 04/15/2026 10:30 AM EDT Office Visit [facility] [address] [place] [address], [place] [address] Ebonie Crowley MD [address] [place] [phone] documented as of this encounter Visit Diagnoses Not on filedocumented in this encounter Additional Health Concerns Assessment Noted Time PHQ-9 Depression Total Score: 0 08/18/19 6:00 PM EST documented as of this encounter Care Teams Utility Systems Repairer Operator Relationship Specialty Start Date End Date Madhav Mcfadden MD [address] [place] [address] PCP - General Family Medicine 08/20/23 documented as of this encounter
--- OUTSIDE RECORDS SUMMARY | 2025-07-24 20:31 | XMS_ITS | Encounter Summary ---
Author Organization [facility] Address [address] [place] [address] Care Team Providers Care Hand I Thermal Cutter Name Role Phone Jacqueline Kay MD Primary Care Provider Unava ilable Jacqueline Kay MD Primary Care Provider Unava ilable Jacqueline Kay MD Unavailable Unavailable Jacqueline Kay MD Unavailable Unavailable Stephanie Darnell I SYSTEMS ANALYSIS MANAGER Unavailable [phone] Stephanie Darnell I SYSTEMS ANALYSIS MANAGER Unavailable [phone] Cathleen Allan MD Unavailable [phone] Pete Hester MD Unavailable [phone] Pati Armendariz PhD Unavailabl e Madhav Mcfadden MD Primary Care Provider [phone] Jacqueline Kay MD Unavailable Unavailable Yasmine Cohen RN Unavailable Unavaila ble Bre Almaguer RN Unavailable [phone] Madhav Mcfadden MD Unavailable [phone] Romero Pryor MD Unavailable [phone] Prerna Paulino MD Unavailable [phone] Magda Davis MD Unavailable [phone] Ifeoma Hanson MD Unavailable Iefoma Hanson MD Unavailable Encounter Details Date Type Department Care Team (Late st Contact Info) Description 06/23/2019 Prep for Surgery [facility] [address] [place] [address] [address] [place] [phone] Bal Dill MD [address] [facility] [address] [place] [address] Complex regional pain syndrome type 1 of left upper extremity (Primary Dx) Social History Tobacco Use Types Packs/Day Years Used Date Smoking Tobacco: Never Smokeless Tobacco: Never Alcohol Use Standard Drinks/Week Comments Yes 0 (1 standard drink = 0.6 oz pur e alcohol) Once a month Sex and Gender Information [...] Description 2025 8:00 AM EST Office Visit [address] [phone] Madhav Mcfadden MD [address] [place] [address] 09/01/2025 9:20 AM EST Office Visit [id number] [address] [phone] Reji Mi, DO [address] [phone] 09/29/2025 9:20 AM EST Office Visit [id number] [address] [phone] Reji Mi, DO [address], [place] [phone] 10/27/2025 9:40 AM EDT Office Visit [id number] [address] [place] [phone] Reji iM, DO [address], [place] [phone] 12/01/2025 9:40 AM EDT Office Visit [facility] PAIN MGMT [id number] [address] [place] [phone] Reji Mi, DO [address], [place] [phone] 02/03/2026 9:30 AM EDT Telemedicine [facility] Endocrinology [address] [address] Ifeoma Hanson MD [address] [place] [phone] documented as of this encounter Goals Goal [...] and he was provided today with a [facility]., ongoing OT LTG 2 Occupational Therapy No Maida Benito, OT Note: Patient will decrease Quick Dash score from 79.5 to 10 or less in order to complete functional tasks with greater ease x 12 weeks 06/18/2019 Scored the same today, ongoing OT LTG 3 Occupational Therapy No Maida Benito, OT Note: Patient will increase L fruit sprayer strength (4lbs) to 60 lbs or more in order to open pill bottles with greater ease x12 weeks Patient will increase L lateral pinch (3.5), L tip pinch (2.5), L 3 jaw pinch (2.5) by 5 lbs each in order for greater ease with typing x12 weeks. 06/18/2019 L fruit sprayer- 20 lbs L lateral pinch- 6.2 Tip [...] Diagnoses Diagnosis Complex regional pain syndrome type 1 of left upper extremity- Primary documented in this encounter Additional Health Concerns Infection Onset Date Last Indicated Resolved Time R/O Gastrointestinal Infection 10/31/2022 10/31/2022 11/02/2022 11:58 AM EDT R/O C. Difficile 10/31/2022 10/31/2022 11/02/2022 11:58 AM EDT documented as of this encounter Care Teams Hand I Thermal Cutter Relationship Specialty Start Date End Date Jacqueline Kay MD PCP - General Family Medicine 11/01/17 04/28/21 Jacqueline Kay MD PCP - General Family Medicine 04/29/21 01/15/22 Jacqueline Kay MD PCP - [employer] Attributed 06/06/20 07/05/20 Stephanie Darnell I, SYSTEMS ANALYSIS MANAGER [address] [phone] PCP - [employer] Commercial Attributed 07/06/20 10/03/20 Stephanie Darnell APRN [address] [phone] PCP - [employer] Commercial Attributed 05/06/21 11/03/21 Madhav Mcfadden MD [address] [place], [place] [address] PCP - General Family Medicine 01/16/22 Jacqueline Kay MD PCP - [employer] Commercial Attributed 11/04/21 07/05/22 Madhav Mcfadden MD [address] [place] [address] PCP - [employer] Commercial Attributed 07/06/22 07/05/23 Jacqueline Kay MD Family Medicine 04/29/21 03/30/22 Cathleen Allan MD [address] [phone] Urology 09/15/16 Pete Hester MD [address] [place] [address] Surgery, Orthopedic 08/15/19 Pati Armendariz, PhD [address] [place] [address] Clinical Psychologist Psychology 09/16/21 Yasmine Cohen, RN [facility] [address] Community Fish And Game Club Manager 07/21/22 08/26/23 Bre Almaguer, RN [address] [address] [facility] Community Fish And Game Club Manager 10/03/22 11/13/22 Romero Pryor MD [address] [place] [address] Cardiovascular Disease 02/05/23 Prerna Paulino MD [address] [place] [address] Internal Medicine 07/04/24 Madga Davis MD [address] [place] [address] Gastroenterology 07/04/24 Ifeoma Hanson MD [address] [place] [address] Endocrinology 07/04/24 Ifeoma Hanson MD [address] [place] [address] Endocrinology 11/26/24 documented as of this encounter
--- OUTSIDE RECORDS SUMMARY | 2025-07-24 20:31 | XMS_ITS | Encounter Summary ---
Author Organization [facility] Address [address] [place] [address] Care Team Providers Care Senior Outside Sales Representative Name Role Phone Jacqueline Kay MD Primary Care Provider Unava ilable Jacqueline Kay MD Primary Care Provider Unava ilable Jacqueline Kay MD Unavailable Unavailable Jacqueline Kay MD Unavailable Unavailable Stephanie Darnell I PYTHON ENGINEER Unavailable [phone] Stephanie Darnell I PYTHON ENGINEER Unavailable [phone] Cathleen Allan MD Unavailable [phone] Pete Hester MD Unavailable [phone] Pati Armendariz PhD Unavailabl e Madhav Mcfadden MD Primary Care Provider [phone] Jacqueline Kay MD Unavailable Unavailable Yasmine Cohen RN Unavailable Unavaila ble Bre Almaguer RN Unavailable [phone] Madhav Mcfadden MD Unavailable [phone] Romero Pryor MD Unavailable [phone] Prerna Paulino MD Unavailable [phone] Magda Davis MD Unavailable [phone] Ifeoma Hanson MD Unavailable Ifeoma Hanson MD Unavailable [phone] Encounter Details Date Type Department Care Team (Late st Contact Info) Description 03/13/2018 Scanned Document [facility] [address] [place] [address] Natali Lucas, PYTHON ENGINEER [address] [facility] [place] [address] Social History Tobacco Use Types Packs/Day Years [...] Description 2025 8:00 AM EST Office Visit [address] [phone] Madhav Mcfadden MD [address] [place] [address] 09/01/2025 9:20 AM EST Office Visit [id number] [address] [phone] Reji Mi, DO [address] [phone] 09/29/2025 9:20 AM EST Office Visit [id number] [address] [phone] Reji Mi, DO [address] [phone] 10/27/2025 9:40 AM EDT Office Visit [id number] [address] [phone] ShmuelReji Joni, DO [address] [address] 12/01/2025 9:40 AM EDT Office Visit [id number] [address] [phone] Shmuel, Reji Joni, DO [address] [phone] 02/03/2026 9:30 AM EDT Telemedicine [facility] Endocrinology [address] [address] Ifeoma Hanson MD [address] [place] [address] documented as of this encounter Visit Diagnoses Not on filedocumented in this encounter Additional Health Concerns Infection Onset Date Last Indicated Resolved Time R/O Gastrointestinal Infection 10/31/2022 10/31/2022 11/02/2022 11:58 AM EDT R/O C. Difficile 10/31/2022 10/31/2022 11/02/2022 11:58 AM EDT documented as of this encounter Care Teams Senior Outside Sales Representative Relationship Specialty Start Date End Date Jacqueline Kay MD PCP - General Family Medicine 11/01/17 04/28/21 Jacqueline Kay MD PCP - General Family Medicine 04/29/21 01/15/22 Jacqueline Kay MD PCP - [employer] Commercial Attributed 06/06/20 07/05/20 Stephanie Darnell APRN [address] [place] [address] PCP - [employer] Commercial Attributed 07/06/20 10/03/20 Stephanie Darnell APRN [address] [address] PCP - [employer] Commercial Attributed 05/06/21 11/03/21 Madhav Mcfadden MD [address] [place] [address] PCP - General Family Medicine 01/16/22 Jacqueline Kay MD PCP - [employer] Commercial Attributed 11/04/21 07/05/22 Madhav Mcfadden MD [address] [place] [phone] PCP - [employer] Commercial Attributed 07/06/22 07/05/23 Jacqueline Kay MD Family Medicine 04/29/21 03/30/22 Cathleen Allan MD [address] [place] [address] Urology 09/15/16 Pete Hester MD [address] [place] [address] [phone] Surgery, Orthopedic 08/15/19 Pati Armendariz, PhD [address] [place] [address] [phone] Clinical Psychologist Psychology 09/16/21 Yasmine Cohen, RN [address] [place] [address] ICP Community Paper Control Clerk 07/21/22 08/26/23 Bre Almaguer, RN [address] Patrick Degroot [address] [address] ICP Community Paper Control Clerk 10/03/22 11/13/22 Romero Pryor MD [address] [place] [address] Cardiovascular Disease 02/05/23 Prerna Paulino MD [address] [place] [address] Internal Medicine 07/04/24 Magda Davis MD [address] [place], [place] [phone] Gastroenterology 07/04/24 Ifeoma Hanson MD [address] [place] [address] Endocrinology 07/04/24 Ifeoma Hanson MD [address] [place] [address] Endocrinology 11/26/24 documented as of this encounter
--- OUTSIDE RECORDS SUMMARY | 2025-07-24 20:31 | XMS_ITS | Encounter Summary ---
Author Organization [facility] Address [address] [place] [address] Care Team Providers Care Patrol Commander Name Role Phone Cathleen Allan MD Unavailable [phone] Pete Hester MD Unavailable [phone] Pati Armendariz PhD Unavailabl e Madhav Mcfadden MD Primary Care Provider [phone] Yasmine Cohen RN Unavailable Unavaila ble Bre Almaguer RN Unavailable [phone] Madhav Mcfadden MD Unavailable [phone] Romero Pryor MD Unavailable [phone] Prerna Paulino MD Unavailable [phone] Magda Davis MD Unavailable [phone] Ifeoma Hanson MD Unavailable [phone] Ifeoma Hanson MD Unavailable [phone] Encounter Details Date Type Department Care Team (Late st Contact Info) Description 10/16/2022 Scanned Document [facility] [address] [place] [address] Axel Tovar MD 85 [facility] [address] [place] [address] Social History Tobacco Use Types Packs/Day Years Used Date Smoking Tobacco: Never Smokeless Tobacco: Never Alcohol Use Standard Drinks/Week Comments Not Currently 0 (1 standard drink = 0.6 oz pur e alcohol) AUDIT-C Answer Date Recorded Q1: How often do you have a drink containing alcohol? Never 10/03/2022 Q2: How many drinks containi ng alcohol do you have on a typical day when you are drinking? Patient does not drink Q3: How often do you have si x or more drinks on one occasion? Never 10/03/2022 Overall Financial Resource Strain (CARDIA) Answe r Date Recorded How hard is it for you to pa y for the very basics like food, housing, medical care, and heating? Not very hard 10/03/2022 PHQ-2 Answer Date Recorded PHQ-2 Total Score 6 09/20/2021 Hunger Vital Sign Answer Date Recorded Within the past 12 months, y ou worried that your food would run out before you got the money to buy more. Never true 10/03/19 23 Within the past 12 months, t he food you bought just didn't last and you didn't have money to get more. Never true 10/03/2022 PRAPARE - Transportation Answer Date Re corded In the past 12 months, has l ack of transportation kept you from medical appointments or from getting medications? No 09/07 In the past 12 months, has l ack of transportation kept you from meetings, work, or from getting things needed for daily living? No 10/03/2022 Housing Stability Vital Sign Answer Alden e Recorded In the last 12 months, was t here a time when you were not able to pay the mortgage or rent on time? No 10/03/2022 Number of Places Lived in the Last Year Not on f ile 10/03/2022 In the last 12 months, was t here a time when you did not have a steady place to sleep or slept in a mcfp (including now)? No 10/03/2022 Sex and Gender Information Value Date Recorded [...] suspected to have Coronavirus/COVID-19? No / Unsure 10/17/2022 11:16 AM EDT documented as of this encounter Plan of Treatment Upcoming Encounters Date Type Department Care Team (Late st Contact Info) Description 2025 8:00 AM EST Office Visit [address] [address] Madhav Mcfadden MD [address] [place] [address] [phone] 09/01/2025 9:20 AM EST Office Visit [id number] [address] [phone] Reji Miil, DO [address] [place] [address] 09/29/2025 9:20 AM EST Office Visit [id number] [address] [phone] Reji Miil, DO [address] [place] [address] 10/27/2025 9:40 AM EDT Office Visit [id number] [address] [phone] Reji Miil, DO [address] [place] [address] 12/01/2025 9:40 AM EDT Office Visit [id number] [address] [phone] Reji Miil, DO [address] [place] [address] 02/03/2026 9:30 AM EDT Telemedicine [facility] Endocrinology [place] [address] [place] [address] Ifeoma Hanson MD [address] [place], [place] [phone] documented as of this encounter Goals Goal [...] and he was provided today with a [facility] ongoing OT LTG 2 Occupational Therapy No Maida Benito, OT Note: Patient will decrease Quick Dash score from 79.5 to 10 or less in order to complete functional tasks with greater ease x 12 weeks 06/18/2019 Scored the same today, ongoing OT LTG 3 Occupational Therapy No Maida Benito, OT Note: Patient will increase L skiver welt end strength (4lbs) to 60 lbs or more in order to open pill bottles with greater ease x12 weeks Patient will increase L lateral pinch (3.5), L tip pinch (2.5), L 3 jaw pinch (2.5) by 5 lbs each in order for greater ease with typing x12 weeks. 06/18/2019 L skiver welt end- 20 lbs L lateral pinch- 6.2 Tip [...] documented as of this encounter Care Teams Patrol Commander Relationship Specialty Start Date End Date Madhav Mcfadden MD [address] [place] [address] PCP - General Family Medicine 01/16/22 Madhav Mcfadden MD [address] [place] [address] PCP - [employer] Commercial Attributed 07/06/22 07/05/23 Cathleen Allan MD Urology 09/15/16 Pete Hester MD [address] [place] [address] Surgery, Orthopedic 08/15/19 Anthony Gallegos, Pati Medina, PhD [address] [place] [address] Clinical Psychologist Psychology 09/16/21 Yasmine Cohen, RN [facility] [address] Community Vfx Artist 07/21/22 08/26/23 Bre Almaguer, RN [address] [address] [facility] Community Vfx Artist 10/03/22 11/13/22 Romero Pryor MD [address] [place] [address] Cardiovascular Disease 02/05/23 Prerna Paulino MD [address] [place] [address] Internal Medicine 07/04/24 Magda Davis MD [address] [place] [address] Gastroenterology 07/04/24 Ifeoma Hanson MD [address] [place] [address] Endocrinology 07/04/24 Ifeoma Hanson MD [address] [place] [address] Endocrinology 11/26/24 documented as of this encounter
--- OUTSIDE RECORDS SUMMARY | 2025-07-24 20:31 | XMS_ITS | Encounter Summary ---
Author Organization [facility] Address [address] [place] [address] Care Team Providers Care Shuttle Van Driver Name Role Phone Jacqueline Kay MD Primary Care Provider Unava ilable Jacqueline Kay MD Primary Care Provider Unava ilable Jacqueline Kay MD Unavailable Unavailable Jacqueline Kay MD Unavailable Unavailable Stephanie Darnell I HEATING EQUIPMENT REPAIRER Unavailable [phone] Stephanie Darnell I HEATING EQUIPMENT REPAIRER Unavailable [phone] Cathleen Allan MD Unavailable [phone] Pete Hester MD Unavailable [phone] Pati Armendariz PhD Unavailabl e Madhav Mcfadden MD Primary Care Provider [phone] Jacqueline Kay MD Unavailable Unavailable Yasmine Cohen RN Unavailable Unavaila ble Bre Almaguer RN Unavailable [phone] Madhav Mcfadden MD Unavailable [phone] Romero Pryor MD Unavailable [phone] Prerna Paulino MD Unavailable [phone] Magda Davis MD Unavailable [phone] Ifeoma Hanson MD Unavailable Ifeoma Hanson MD Unavailable [phone] Encounter Details Date Type Department Care Team (Late st Contact Info) Description 03/29/2018 Scanned Document [facility]eron [address] [place] [address] [place] [address] Provider, Generic Social History Tobacco Use Types [...] 2025 8:00 AM EST Office Visit [address] [address] Madhav Mcfadden MD [address] [place] [address] 09/01/2025 9:20 AM EST Office Visit [id number] [address] [phone] Reji Mi, DO [address] [place] [address] [phone] 09/29/2025 9:20 AM EST Office Visit [id number] [address] [address] Reji Mi, DO [address] [place] [address] [phone] 10/27/2025 9:40 AM EDT Office Visit [id number] [address] [place] [phone] ShmuelRejiil, DO [address] [phone] 12/01/2025 9:40 AM EDT Office Visit [id number] [address] [place] [address] ShmuelReji Joni, DO [address] [phone] 02/03/2026 9:30 AM EDT Telemedicine [facility] Endocrinology [address] [phone] Ifeoma Hanson MD [address] [place] [address] documented as of this encounter Visit Diagnoses Not on filedocumented in this encounter Additional Health Concerns Infection Onset Date Last Indicated Resolved Time R/O Gastrointestinal Infection 10/31/2022 10/31/2022 11/02/2022 11:58 AM EDT R/O C. Difficile 10/31/2022 10/31/2022 11/02/2022 11:58 AM EDT documented as of this encounter Care Teams Shuttle Van Driver Relationship Specialty Start Date End Date Jacqueline Kay MD PCP - General Family Medicine 11/01/17 04/28/21 Jacqueline Kay MD PCP - General Family Medicine 04/29/21 01/15/22 Jacqueline Kay MD PCP - C[employer] Commercial Attributed 06/06/20 07/05/20 Stephanie Darnell APRN [address] [phone] PCP - [employer] Commercial Attributed 07/06/20 10/03/20 Stephanie Darnell APRN [address] [place], [place] [phone] PCP - [employer] Commercial Attributed 05/06/21 11/03/21 Madhav Mcfadden MD [address] [place] [address] PCP - General Family Medicine 01/16/22 Jacqueline Kay MD PCP - C[employer] Commercial Attributed 11/04/21 07/05/22 Madhav Mcfadden MD [address] [place] [phone] (Work) PCP - C[employer] Commercial Attributed 07/06/22 07/05/23 Jacqueline Kay MD Family Medicine 04/29/21 03/30/22 Cathleen Allan MD [address] [place] [phone] Urology 09/15/16 Pete Hester MD [address] [place], [place] [phone] Surgery, Orthopedic 08/15/19 Pati Armendariz, PhD [address] [place], [place] [phone] Clinical Psychologist Psychology 09/16/21 Yasmine Cohen, RN [address] [place] [phone] [facility] Community Container Finishing Inspector 07/21/22 08/26/23 Bre Almaguer, RN 1290 [facility] 4 [place] [address] [facility] Community Container Finishing Inspector 10/03/22 11/13/22 Romero Pryor MD [address] [place] [address] Cardiovascular Disease 02/05/23 Prerna Paulino MD [address] [place] [place] [address] Internal Medicine 07/04/24 Magda Davis MD [address] [place] [address] Gastroenterology 07/04/24 Ifeoma Hanson MD [address] [place], [place] [phone] Endocrinology 07/04/24 Ifeoma Hanson MD [address] [place] [address] Endocrinology 11/26/24 documented as of this encounter
--- OUTSIDE RECORDS SUMMARY | 2025-07-24 20:31 | XMS_ITS | Encounter Summary ---
Author Organization [facility] Address [address] [place] [address] Care Team Providers Care Basketball Player Name Role Phone Madhav Mcfadden MD Primary Care Provider [phone] Reason for Visit * Reason Onset Date Comments Appointment 12/11/2023 Encounter Details Date Type Department Care Team ([facility] st Contact Info) Description 12/11/2023 Telephone [facility] [address] [facility] [address] [place] [address] Pend, No Appointment Social History Tobacco Use Types Packs/Day Years [...] your living situation today? I have a st poncho place to live 08/18/2023 Housing Stability [...] encounter Miscellaneous Notes * Telephone Encounter - Anju Pimentel - 12/11/2023 4:11 PM EDT Pt returning missed to schedule procedure. Called dept but no avail. Informed pt dept may have large call volume and a message will be sent on his behalf. Verified best call back number [phone] documented in this encounter Plan of Treatment Upcoming Encounters Date Type Department Care Team (Late st Contact Info) Description 08/05/2025 1:40 PM EST [facility] Scan [address] [place] [address]. [place] [address] Bal Villavicencio MD [address] [place] [phone] 08/11/2025 4:00 PM EST Evaluation [facility] [address] [place] [address] Kerry Kaba MD 200 [facility] 204 [place] [address] 08/17/2025 1:00 PM EST Office Visit [facility] [address] [place] [address] [phone] Petrona Nesbitt PA 8 [place] [address] 09/04/2025 10:15 AM EST Follow Up [facility] [address] [place] [address] Carlos Lo MD [address] [place] [phone] 10/20/2025 4:00 PM EDT Telemedicine [facility] [address] [place] [address] 40 [facility] [address] [place] [address] Prerna Paulino MD [address] [place] [phone] 10/29/2025 9:00 AM EDT Office Visit [facility] [address] [place] [address], [place] [address] Petrona Nesbitt PA [address] [place] [phone] 12/10/2025 10:00 AM EDT Office Visit [facility] [address] [place] [address], [place] [address] Petrona Nesbitt PA [address] [place] [phone] 01/21/2026 10:00 AM EDT Office Visit [facility] [address] [place] [address], [place] [address] Petrona Nesbitt PA [address] [place] [phone] 03/04/2026 10:00 AM EDT Office Visit [facility] [address] [place] [address], [place] [address] Petrona Nesbitt PA [address] [place] [phone] 04/15/2026 10:30 AM EDT Office Visit [facility] 8 [facility] [place] 8 [place] [address] Ebonie Crowley MD [address] [phone] documented as of this encounter Visit Diagnoses Not on filedocumented in this encounter Additional Health Concerns Assessment Noted Time PHQ-9 Depression Total Score: 0 08/18/19 24 6:00 PM EST documented as of this encounter Care Teams Basketball Player Relationship Specialty Start Date End Date Madhav Mcfadden MD [address] [place] [address] PCP - General Family Medicine 08/20/23 documented as of this encounter
--- OUTSIDE RECORDS SUMMARY | 2025-07-24 20:31 | XMS_ITS | Encounter Summary ---
Author Organization [facility] Address [address] [place] [address] Care Team Providers Care Lap Winding Machine Operator Name Role Phone Jacqueline Kay MD Primary Care Provider Unava ilable Jacqueline Kay MD Primary Care Provider Unava ilable Jacqueline Kay MD Unavailable Unavailable Jacqueline Kay MD Unavailable Unavailable Stephanie Darnell I SOLAR INSTALLATION MANAGER Unavailable [phone] Stephanie Darnell I SOLAR INSTALLATION MANAGER Unavailable [phone] Cathleen Allan MD Unavailable [phone] Pete Hester MD Unavailable [phone] Pati Armendariz PhD Unavailabl e Madhav Mcfadden MD Primary Care Provider [phone] Jacqueline Kay MD Unavailable Unavailable Yasmine Cohen RN Unavailable Unavaila ble Bre Almaguer RN Unavailable [phone] aMdhav Mcfadden MD Unavailable [phone] Romero Pryor MD Unavailable [phone] Prerna Paulino MD Unavailable [phone] Magda Davis MD Unavailable [phone] Ifeoma Hanson MD Unavailable Ifeoma Hanson MD Unavailable Encounter Details Date Type Department Care Team (Late st Contact Info) Description 06/15/2020 Scanned Document [facility] Keron [address] [place] [address] [place] [address] Jacqueline Kay MD Social History Tobacco Use Types Packs/Day Years [...] Description 2025 8:00 AM EST Office Visit [address] [phone] Madhav Mcfadden MD [address] [place] [address] 09/01/2025 9:20 AM EST Office Visit MG PA[facility] MGMT [id number] [address] [address] Reji Mi DO [address] [address] 09/29/2025 9:20 AM EST Office Visit [id number] [address] [address] ShmuelReji silver, DO [address] [place] [address] 10/27/2025 9:40 AM EDT Office Visit [id number] [address] [place] [address] Reji Mi, DO [address] [place] [address] 12/01/2025 9:40 AM EDT Office Visit [id number] [address] [place] [phone] Reji Mi, DO [address], [place] [phone] 02/03/2026 9:30 AM EDT Telemedicine [facility] Endocrinology [address] [address] Ifeoma Hanson MD [address] [place] [address] [phone] documented as of this encounter Goals Goal [...] Benito, OT Note: Patient will increase L knitted garment finisher strength (4lbs) to 60 lbs or more in order to open pill bottles with greater ease x12 weeks Patient will increase L lateral pinch (3.5), L tip pinch (2.5), L 3 jaw pinch (2.5) by 5 lbs each in order for greater ease with typing x12 weeks. 06/18/2019 L knitted garment finisher- 20 lbs L lateral pinch- 6.2 Tip [...] documented as of this encounter Care Teams Lap Winding Machine Operator Relationship Specialty Start Date End Date Jacqueline Kay MD PCP - General Family Medicine 11/01/17 04/28/21 Jacqueline Kay MD PCP - General Family Medicine 04/29/21 01/15/22 Jacqueline Kay MD PCP - [employer] Commercial Attributed 06/06/20 07/05/20 Stephanie Darnell I, SOLAR INSTALLATION MANAGER [address] [address] PCP - [employer] Commercial Attributed 07/06/20 10/03/20 Stephanie Darnell APRN [address] [address] PCP - [employer] Commercial Attributed 05/06/21 11/03/21 Madhav Mcfadden MD [address] [place], [place] [address] PCP - General Family Medicine 01/16/22 Jacqueline Kay MD PCP - [employer] Commercial Attributed 11/04/21 07/05/22 Madhav Mcfadden MD [address] [place] [address] PCP - [employer] Commercial Attributed 07/06/22 07/05/23 Jacqueline Kay MD Family Medicine 04/29/21 03/30/22 Cathleen Allan MD [address] [address] Urology 09/15/16 Pete Hester MD [address] [place] [address] Surgery, Orthopedic 08/15/19 Pati Armendariz, PhD [address] [place] [address] Clinical Psychologist Psychology 09/16/21 Yasmine Cohen, RN [facility] [address] Community Assembler Dielectric Heater 07/21/22 08/26/23 Bre Almaguer, RN [address] [address] [facility] Community Assembler Dielectric Heater 10/03/22 11/13/22 Romero Pryor MD [address] [place] [address] Cardiovascular Disease 02/05/23 Prerna Paulino MD [address] [place] [address] Internal Medicine 07/04/24 Magda Davis MD [address] [place] [address] Gastroenterology 07/04/24 Ifeoma Hanson MD [address] [place] [address] Endocrinology 07/04/24 Ifeoma Hanson MD [facility] [place] [address] Endocrinology 11/26/24 documented as of this encounter
--- OUTSIDE RECORDS SUMMARY | 2025-07-24 20:31 | XMS_ITS | Encounter Summary ---
Author Organization [facility] and [facility] Address [address] [place] [phone] Care Team Providers Care Microelectronics Engineer Name Role Phone Madhav Mcfadden MD Primary Care Provider [phone] Reason for Visit * Reason Onset Date Comments Appointment 12/24/2023 Encounter Details Date Type Department Care Team ([facility] st Contact Info) Description 12/24/2023 Telephone [facility] at 40 [facility] 40 [facility] [address] [place] [address] Pend, No Appointment Social History Tobacco Use [...] threatening you in anyway? Not on file 12/26/2023 Physical Indicators of Abuse No evidence of phys ical abuse 12/26/2023 Sex and Gender Information Value Date Recorded Sex Assigned at Male 06/16/2025 10:30 AM EST Legal Sex Male 8:50 PM EST Gender Identity Male 06/16/2025 10:30 AM EST Sexual Orientation Not on file documented as of this encounter Miscellaneous Notes * Telephone Encounter - Gloria Jalloh - 12/24/2023 12:18 PM EDT [phone] Confirmed pt number Pt rtn call, req c/b to schedule procedure. documented in this encounter Plan of Treatment Upcoming Encounters Date Type Department Care Team (Late st Contact Info) Description 08/05/2025 1:40 PM EST Appointment [facility] Scan [address] [place] [address] Bal Villavicencio MD [address] [place] [address] 08/11/2025 4:00 PM EST Evaluation [facility] 200 [place] [address] Kerry Kaba MD 200 [facility] 204 [place] [phone] 08/17/2025 1:00 PM EST Office Visit [facility] [address] [place] [address] Petrona Nesbitt PA [address] [place] [phone] 09/04/2025 10:15 AM EST Follow Up [facility] [address] [place] [address] Carlos Lo MD [address] [place] [phone] 10/20/2025 4:00 PM EDT Telemedicine [facility] [address] [place] [address] 40 [facility] [address] [place] [address] Prerna Paulino MD [address] [place] [phone] 10/29/2025 9:00 AM EDT Office Visit [facility] [address] [place] [address] Petrona Nesbitt PA [address] [place] [phone] 12/10/2025 10:00 AM EDT Office Visit [facility] [address] [place] [address] Petrona Nesbitt PA [address] [place] [phone] 01/21/2026 10:00 AM EDT Office Visit [facility] [address] [place] [address] Petrona Nesbitt PA [address] [place] [phone] 03/04/2026 10:00 AM EDT Office Visit [facility] [address] [place] [address] Petrona Nesbitt PA [address] [place] [phone] 04/15/2026 10:30 AM EDT Office Visit [facility] 8 [facility] 8 [place] [address] Ebonie Crowley MD [address] [phone] documented as of this encounter Visit Diagnoses Not on filedocumented in this encounter Additional Health Concerns Assessment Noted Time PHQ-9 Depression Total Score: 0 08/18/19 24 6:00 PM EST documented as of this encounter Care Teams Microelectronics Engineer Relationship Specialty Start Date End Date Madhav Mcfadden MD [address] [place] [address] PCP - General Family Medicine 08/20/23 documented as of this encounter
--- OUTSIDE RECORDS SUMMARY | 2025-07-24 20:31 | XMS_ITS | Encounter Summary ---
Author Organization [facility] Address [address] [place] [address] Care Team Providers Care Special Librarian Name Role Phone Bianka Kelly APRN Primary Care Provider U Jacqueline Campos MD Primary Care Provider Unava ilable Jacqueline Kay MD Primary Care Provider Unava Jacqueline Valdez MD Unavailable Unavailable Jacqueline Kay MD Unavailable Unavailable Stephanie Darnell I ASSEMBLER LEATHER GOODS Unavailable [phone] Stephanie Darnell I ASSEMBLER LEATHER GOODS Unavailable [phone] Cathleen Allan MD Unavailable [phone] Pete Hester MD Unavailable [phone] Pati Armendariz PhD Unavailabl e Madhav Mcfadden MD Primary Care Provider [phone] Jacqueline Kay MD Unavailable Unavailable Yasmine Cohen RN Unavailable Unavaila ble Bre Almaguer RN Unavailable [phone] Madhav Mcfadden MD Unavailable [phone] Romero Pryor MD Unavailable [phone] Prerna Paulino MD Unavailable [phone] Magda Davis MD Unavailable [phone] Ifeoma Hanson MD Unavailable Ifeoma Hanson MD Unavailable Encounter Details Date Type Department Care Team (Late st Contact Info) Description 09/07/2017 Scanned Document [facility] [address] [place] [address] Provider, Generic Social History Tobacco Use Types [...] Description 2025 8:00 AM EST Office Visit [address] [address] Madhav Mcfadden MD [address] [place] [address] 09/01/2025 9:20 AM EST Office Visit [id number] [address] [address] Reji Mi, DO [address] [place] [phone] 09/29/2025 9:20 AM EST Office Visit [id number] [address] [address] Reji Mi, DO [address] [place] [phone] 10/27/2025 9:40 AM EDT Office Visit [id number] [address] [place] [phone] ShmuelReji Joni, DO [address], [place] [phone] 12/01/2025 9:40 AM EDT Office Visit [id number] [address] [place] [phone] ShmuelReji Joni, DO [address], [place] [phone] 02/03/2026 9:30 AM EDT Telemedicine [facility] Endocrinology [address] [phone] Ifeoma Hanson MD [address] [place] [address] documented as of this encounter Procedures Procedure Name Priority Date/Time Associated Diagnosis Comments HX GASTROENTEROLOGY UPPER ENDOSCOPY-SCAN 09/07/2017 documented in this encounter Results * HX GASTROENTEROLOGY UPPER ENDOSCOPY-SCAN (09/07/2017) Narrative 09/07/2017 Ordered by an unspecified [...] documented as of this encounter Care Teams Special Librarian Relationship Specialty Start Date End Date Bianka Kelly APRN PCP - General Family Medicine 06/15/16 10/31/17 Jacqueline Kay MD PCP - General Family Medicine 11/01/17 04/28/21 Jacqueline Kay MD PCP - General Family Medicine 04/29/21 01/15/22 Jacqueline Kay MD PCP - [employer] Commercial Attributed 06/06/20 07/05/20 Stephanie Darnell APRN [address] [place] [address] PCP - [employer] Commercial Attributed 07/06/20 10/03/20 Stephanie Darnell APRN [address] [place] [address] PCP - [employer] Commercial Attributed 05/06/21 11/03/21 Madhav Mcfadden MD [address] [place] [address] PCP - General Family Medicine 01/16/22 Jacqueline Kay MD PCP - [employer] Commercial Attributed 11/04/21 07/05/22 Madhav Mcfadden MD [address] [place] [address] PCP - [employer] Commercial Attributed 07/06/22 07/05/23 Jacqueline Kay MD Family Medicine 04/29/21 03/30/22 Cathleen Allan MD [address] [place] [phone] Urology 09/15/16 Pete Hester MD [address] [place] [address] Surgery, Orthopedic 08/15/19 Pati Armendariz, PhD [address] [place] [address] 435 [place] [address] Clinical Psychologist Psychology 09/16/21 Yasmine Cohen, RN 25[address] [place] [address] [facility] Community Automobile Damage Appraiser 07/21/22 08/26/23 Bre Almaguer, RAEANN [address] [address] [facility] Community Automobile Damage Appraiser 10/03/22 11/13/22 Romero Pryor MD [address] [place] [address] Cardiovascular Disease 02/05/23 Prerna Paulino MD [address] [place] [address] Internal Medicine 07/04/24 Magda Davis MD [address] [place] [address] Gastroenterology 07/04/24 Ifeoma Hanson MD [address] [place] [address] Endocrinology 07/04/24 Ifeoma Hanson MD [address] [place] [address] Endocrinology 11/26/24 documented as of this encounter
--- OUTSIDE RECORDS SUMMARY | 2025-07-24 20:31 | XMS_ITS | Encounter Summary ---
Author Organization [facility] Address [address] [place] [address] Care Team Providers Care Ground Crew Linesman Name Role Phone Jacqueline Kay MD Primary Care Provider Unava ilable Jacqueline Kay MD Primary Care Provider Unava ilable Jacqueline Kay MD Unavailable Unavailable Jacqueline Kay MD Unavailable Unavailable Stephanie Darnell I AUTOMATED PROCESS OPERATOR Unavailable [phone] Stephanie Darnell I AUTOMATED PROCESS OPERATOR Unavailable [phone] Cathleen Allan MD Unavailable [phone] Pete Hester MD Unavailable [phone] Pati Armendariz PhD Unavailabl e Madhav Mcfadden MD Primary Care Provider [phone] Jacqueline Kay MD Unavailable Unavailable Yasmine Cohen RN Unavailable Unavaila ble Bre Almaguer RN Unavailable [phone] Madhav Mcfadden MD Unavailable [phone] Romero Pryor MD Unavailable [phone] Prerna Paulino MD Unavailable [phone] Magda Davis MD Unavailable [phone] Ifeoma Hanson MD Unavailable Ifeoma Hanson MD Unavailable [phone] Encounter Details Date Type Department Care Team (Late st Contact Info) Description 06/22/2020 Scanned Document [facility] Keron [address] [place] [address] [place] [address] Jacqueline Kay MD Social History Tobacco Use [...] Description 2025 8:00 AM EST Office Visit [address] [phone] Madhav Mcfadden MD [address] [place] [address] 09/01/2025 9:20 AM EST Office Visit [id number] [address] [address] Reji Mi DO [address] [address] 09/29/2025 9:20 AM EST Office Visit [id number] [address] [address] ShmuelReji islver, DO [address] [place] [address] 10/27/2025 9:40 AM EDT Office Visit [id number] [address] [place] [address] Reji Mi, DO [address] [place] [address] 12/01/2025 9:40 AM EDT Office Visit [id number] [address] [place] [phone] Reji Mi, DO [address], [place] [phone] 02/03/2026 9:30 AM EDT Telemedicine [facility] Endocrinology [address] [address] Ifeoma Hanson MD [address] [place] [address] [phone] documented as of this encounter Goals Goal [...] and he was provided today with a [facility] ongoing OT LTG 2 Occupational Therapy No Maida Benito, OT Note: Patient will decrease Quick Dash score from 79.5 to 10 or less in order to complete functional tasks with greater ease x 12 weeks 06/18/2019 Scored the same today, ongoing OT LTG 3 Occupational Therapy No Maida Benito, OT Note: Patient will increase L customer service representative strength (4lbs) to 60 lbs or more in order to open pill bottles with greater ease x12 weeks Patient will increase L lateral pinch (3.5), L tip pinch (2.5), L 3 jaw pinch (2.5) by 5 lbs each in order for greater ease with typing x12 weeks. 06/18/2019 L customer service representative- 20 lbs L lateral pinch- 6.2 Tip [...] documented as of this encounter Care Teams Ground Crew Linesman Relationship Specialty Start Date End Date Jacqueline Kay MD PCP - General Family Medicine 11/01/17 04/28/21 Jacqueline Kay MD PCP - General Family Medicine 04/29/21 01/15/22 Jacqueline Kay MD PCP - [employer] Commercial Attributed 06/06/20 07/05/20 Stephanie Darnell I, AUTOMATED PROCESS OPERATOR [address] [address] PCP - [employer] Commercial Attributed 07/06/20 10/03/20 Stephanie Darnell APRN [address] [address] PCP - [employer] Commercial Attributed 05/06/21 11/03/21 Madhav Mcfadden MD 1554 [place], [place] 131224 PCP - General Family Medicine 01/16/22 Jacqueline Kay MD PCP - [employer] Commercial Attributed 11/04/21 07/05/22 Madhav Mcfadden MD [address] [place] [address] PCP - [employer] Commercial Attributed 07/06/22 07/05/23 Jacqueline Kay MD Family Medicine 04/29/21 03/30/22 Cathleen Allan MD [address] [phone] Urology 09/15/16 Pete Hester MD [address] [place] [address] Surgery, Orthopedic 08/15/19 Pati Armendariz, PhD [address] [place] [address] Clinical Psychologist Psychology 09/16/21 Yasmine Cohen, RN [facility] [address] Community Optometry Professor 07/21/22 08/26/23 Bre Almaguer, RN [address] [address] [facility] Community Optometry Professor 10/03/22 11/13/22 Romero Pryor MD [address] [place] [address] Cardiovascular Disease 02/05/23 Prerna Paulino MD [address] [place] [address] Internal Medicine 07/04/24 Magda Davis MD [address] [place] [address] Gastroenterology 07/04/24 Ifeoma Hanson MD [address] [place] [address] Endocrinology 07/04/24 Ifeoma Hanson MD [facility] [place] [address] Endocrinology 11/26/24 documented as of this encounter
--- OUTSIDE RECORDS SUMMARY | 2025-07-24 20:31 | XMS_ITS | Encounter Summary ---
Author Organization [facility] Address [address] [place] [address] Care Team Providers Care Global Regulatory Affairs Manager Name Role Phone Jacqueline Kay MD Primary Care Provider Unava ilable Jacqueline Kay MD Primary Care Provider Unava ilable Jacqueline Kay MD Unavailable Unavailable Jacqueline Kay MD Unavailable Unavailable Stephanie Darnell I BALLAST CLEANING OPERATOR Unavailable [phone] Stephanie Darnell I BALLAST CLEANING OPERATOR Unavailable [phone] Cathleen Allan MD Unavailable [phone] Pete Hester MD Unavailable [phone] Pati Armendariz PhD Unavailabl e Madhav Mcfadden MD Primary Care Provider [phone] Jacqueline Kay MD Unavailable Unavailable Yasmine Cohen RN Unavailable Unavaila ble Bre Almaguer RN Unavailable [phone] Madhav Mcfadden MD Unavailable [phone] Romero Pryor MD Unavailable Prerna Paulino MD Unavailable [phone] Magda Davis MD Unavailable [phone] Ifeoma Hanson MD Unavailable Ifeoma Hanson MD Unavailable Encounter Details Date Type Department Care Team (Late st Contact Info) Description 01/25/2018 Scanned Document [facility] Keron [address] [place] [address] [place] [address] Jacqueline Kay MD Social History Tobacco Use [...] Description 2025 8:00 AM EST Office Visit [address] [phone] aMdhav Mcfadden MD [address] [place] [address] 09/01/2025 9:20 AM EST Office Visit [id number] [address] [address] Reji Mi, DO [address] [place] [address] [phone] 09/29/2025 9:20 AM EST Office Visit [id number] [address] [address] Reji Mi, DO [address] [place] [address] [phone] 10/27/2025 9:40 AM EDT Office Visit [id number] [address] [place] [phone] ShmuelReji Joni, DO [address] [phone] 12/01/2025 9:40 AM EDT Office Visit [id number] [address] [place] [address] ShmuelReji Joni, DO [address] [phone] 02/03/2026 9:30 AM EDT Telemedicine [facility] Endocrinology [address] [address] Ifeoma Hanson MD [address] [place] [address] documented as of this encounter Visit Diagnoses Not on filedocumented in this encounter Additional Health Concerns Infection Onset Date Last Indicated Resolved Time R/O Gastrointestinal Infection 10/31/2022 10/31/2022 11/02/2022 11:58 AM EDT R/O C. Difficile 10/31/2022 10/31/2022 11/02/2022 11:58 AM EDT documented as of this encounter Care Teams Global Regulatory Affairs Manager Relationship Specialty Start Date End Date Jacqueline Kay MD PCP - General Family Medicine 11/01/17 04/28/21 Jacqueline Kay MD PCP - General Family Medicine 04/29/21 01/15/22 Jacqueline Kay MD PCP - [employer] Commercial Attributed 06/06/20 07/05/20 Stephanie Darnell APRN [address] [phone] PCP - [employer] Commercial Attributed 07/06/20 10/03/20 Stephanie Darnell APRN [address] [place] [address] PCP - [employer] Commercial Attributed 05/06/21 11/03/21 Madhav Mcfadden MD [address] [place] [address] PCP - General Family Medicine 01/16/22 Jacqueline Kay MD PCP - [employer] Commercial Attributed 11/04/21 07/05/22 Madhav Mcfadden MD [address] [place] [phone] (Work) PCP - [employer] Commercial Attributed 07/06/22 07/05/23 Jacqueline Kay MD Family Medicine 04/29/21 03/30/22 Cathleen Allan MD [address] [place] [address] Urology 09/15/16 Pete Hester MD [address] [place], [place] [phone] Surgery, Orthopedic 08/15/19 Pati Armendariz, PhD [address] [place], [place] [phone] Clinical Psychologist Psychology 09/16/21 Yasmine Cohen, RN 1559 [place] [address] [facility] Community Die Drawing Checker 07/21/22 08/26/23 Bre Almaguer, RN 1290 [place] [facility] 4 [place] [address] [facility] Community Die Drawing Checker 10/03/22 11/13/22 Romero Pryor MD [address] [place] [address] Cardiovascular Disease 02/05/23 Prerna Paulino MD [address] [place] [address] Internal Medicine 07/04/24 Magda Davis MD [address] [place], [place] [phone] Gastroenterology 07/04/24 Ifeoma Hanson MD [address] [place] [address] Endocrinology 07/04/24 Ifeoma Hanson MD [address] [place] [address] Endocrinology 11/26/24 documented as of this encounter
--- OUTSIDE RECORDS SUMMARY | 2025-07-24 20:31 | XMS_ITS | Encounter Summary ---
Author Organization [facility] Address [address] [place] [address] Care Team Providers Care Touring Production Manager Name Role Phone Jacqueline Kay MD Primary Care Provider Unava ilable Jacqueline Kay MD Primary Care Provider Unava ilable Jacqueline Kay MD Unavailable Unavailable Jacqueline Kay MD Unavailable Unavailable Stephanie Darnell I CLEAT BLANKER Unavailable [phone] Stephanie Darnell I CLEAT BLANKER Unavailable [phone] Cathleen Allan MD Unavailable [phone] Pete Hester MD Unavailable [phone] Pati Armendariz PhD Unavailabl e Madhav Mcfadden MD Primary Care Provider [phone] Jacqueline Kay MD Unavailable Unavailable Yasmine Cohen RN Unavailable Unavaila ble Bre Almaguer RN Unavailable [phone] Madhav Mcfadden MD Unavailable [phone] Romero Pryor MD Unavailable [phone] Prerna Paulino MD Unavailable [phone] Magda Davis MD Unavailable [phone] Ifeoma Hanson MD Unavailable Ifeoma Hanson MD Unavailable Encounter Details Date Type Department Care Team (Late st Contact Info) Description 06/18/2020 Scanned Document [facility] [address] [place] [phone] Romero Pryor MD 305 [facility] [address] [place] [address] Social History Tobacco Use Types Packs/Day Years [...] Description 2025 8:00 AM EST Office Visit [address] [phone] Madhav Mcfadden MD [address] [place] [address] 09/01/2025 9:20 AM EST Office Visit [id number] [address] [phone] Reji Mi DO [address] [phone] 09/29/2025 9:20 AM EST Office Visit [id number] [address] [place] [phone] ShmuelReji, DO [address] [place] [address] 10/27/2025 9:40 AM EDT Office Visit [id number] [address] [place] [address] ShmuelReji Joni, DO [address] [place] [address] 12/01/2025 9:40 AM EDT Office Visit [id number] [address] [place] [phone] ShmuelRejiil, [address] [address] 02/03/2026 9:30 AM EDT Telemedicine [facility] Endocrinology [address] [phone] Ifeoma Hanson MD [address] [place] [address] documented as of this encounter Goals Goal [...] and he was provided today with a [facility] ongoing OT LTG 2 Occupational Therapy No Maida Benito, OT Note: Patient will decrease Quick Dash score from 79.5 to 10 or less in order to complete functional tasks with greater ease x 12 weeks 06/18/2019 Scored the same today, ongoing OT LTG 3 Occupational Therapy No Maida Benito, OT Note: Patient will increase L trial mgr strength (4lbs) to 60 lbs or more in order to open pill bottles with greater ease x12 weeks Patient will increase L lateral pinch (3.5), L tip pinch (2.5), L 3 jaw pinch (2.5) by 5 lbs each in order for greater ease with typing x12 weeks. 06/18/2019 L trial mgr- 20 lbs L lateral pinch- 6.2 Tip [...] documented as of this encounter Care Teams Touring Production Manager Relationship Specialty Start Date End Date Jacqueline Kay MD PCP - General Family Medicine 11/01/17 04/28/21 Jacqueline Kay MD PCP - General Family Medicine 04/29/21 01/15/22 Jacqueline Kay MD PCP - [employer] Commercial Attributed 06/06/20 07/05/20 Stephanie Darnell APRN [address] [address] PCP - [employer] Commercial Attributed 07/06/20 10/03/20 Stephanie Darnell APRN [address] [address] PCP - [employer] Commercial Attributed 05/06/21 11/03/21 Madhav Mcfadden MD [address] [place], [place] 17[address] PCP - General Family Medicine 01/16/22 Jacqueline Kay MD PCP - [employer] Commercial Attributed 11/04/21 07/05/22 Madhav Mcfadden MD [address] [place], [place] [phone] PCP - [employer] Commercial Attributed 07/06/22 07/05/23 Jacqueline Kay MD Family Medicine 04/29/21 03/30/22 Cathleen Allan MD 85 [facility] 1022 [place] [phone] Urology 09/15/16 Pete Hester MD [address] [address] Surgery, Orthopedic 08/15/19 Pati Armendariz, PhD [address] [place] [address] 435 [place] [address] Clinical Psychologist Psychology 09/16/21 Yasmine Cohen, RN [address] [place] [id number] Community Manager Utilization Management 07/21/22 08/26/23 Bre Almaguer RN [address] [address] [facility] Community Manager Utilization Management 10/03/22 11/13/22 Romero Pryor MD [address] [place] [address] Cardiovascular Disease 02/05/23 Prerna Paulino MD [address] [place] [address] Internal Medicine 07/04/24 Magda Davis MD [address] [place] [address] Gastroenterology 07/04/24 Ifeoma Hanson MD [address] [place] [address] Endocrinology 07/04/24 Ifeoma Hanson MD [address] [place] [address] Endocrinology 11/26/24 documented as of this encounter
--- OUTSIDE RECORDS SUMMARY | 2025-07-24 20:31 | XMS_ITS | Encounter Summary ---
Author Organization [facility] Address [address] [place] [address] Care Team Providers Care Online Merchant Name Role Phone Jacqueline Kay MD Primary Care Provider Unava ilable Jacqueline Kay MD Primary Care Provider Unava ilable Jacqueline Kay MD Unavailable Unavailable Jacqueline Kay MD Unavailable Unavailable Stephanie Darnell I RECTIFICATION PRINTER Unavailable [phone] Stephanie Darnell I RECTIFICATION PRINTER Unavailable [phone] Cathleen Allan MD Unavailable [phone] Pete Hester MD Unavailable [phone] Pati Armendariz PhD Unavailabl e Madhav Mcfadden MD Primary Care Provider [phone] Jacqueline Kay MD Unavailable Unavailable Yasmine Cohen RN Unavailable Unavaila ble Bre Almaguer RN Unavailable [phone] Madhav Mcfadden MD Unavailable [phone] Romero Pryor MD Unavailable [phone] Prerna Paulino MD Unavailable [phone] Magda Davis MD Unavailable [phone] Ifeoma Hanson MD Unavailable Ifeoma Hanson MD Unavailable Encounter Details Date Type Department Care Team (Late st Contact Info) Description 03/26/2018 Scanned Document [facility] [address] [place] [address] [place] [address] Jacqueline Kay MD Social History Tobacco Use [...] Description 2025 8:00 AM EST Office Visit [address] [phone] Madhav Mcfadden MD [address] [place] [id number] 09/01/2025 9:20 AM EST Office Visit [id number] [address] [phone] Reji Mi, DO [address] [place] [id number] 09/29/2025 9:20 AM EST Office Visit [id number] [address] [address] Reji Mi, DO [address] [place] [id number] 10/27/2025 9:40 AM EDT Office Visit [id number] [address] [place] [phone] ShmuelReji Joni, DO [address] [id number] 12/01/2025 9:40 AM EDT Office Visit [id number] [address] [place] [address] ShmuelReji Joni, DO [address] [id number] 02/03/2026 9:30 AM EDT [facility]in[facility] [address] [phone] Ifeoma Hanson MD [address] [place] [phone] documented as of this encounter Visit Diagnoses Not on filedocumented in this encounter Additional Health Concerns Infection Onset Date Last Indicated Resolved Time R/O Gastrointestinal Infection 10/31/2022 10/31/2022 11/02/2022 11:58 AM EDT R/O C. Difficile 10/31/2022 10/31/2022 11/02/2022 11:58 AM EDT documented as of this encounter Care Teams Online Merchant Relationship Specialty Start Date End Date Jacqueline Kay MD PCP - General Family Medicine 11/01/17 04/28/21 Jacqueline Kay MD PCP - General Family Medicine 04/29/21 01/15/22 Jacqueline Kay MD PCP - [employer] Attributed 06/06/20 07/05/20 Stephanie Darnell APRN [address] [phone] PCP - [employer] Attributed 07/06/20 10/03/20 Stephanie Darnell APRN [address] [place] [phone] PCP - [employer] Attributed 05/06/21 11/03/21 Madhav Mcfadden MD [address] [place] [address] PCP - General Family Medicine 01/16/22 Jacqueline Kay MD PCP - [employer] Attributed 11/04/21 07/05/22 Madhav Mcfadden MD [address] [phone] (Work) PCP - [employer] Attributed 07/06/22 07/05/23 Jacqueline Kay MD Family Medicine 04/29/21 03/30/22 Cathleen Allan MD [address] [place] [phone] Urology 09/15/16 Pete Hester MD [address] [place], [place] [phone] Surgery, Orthopedic 08/15/19 Pati Armendariz, PhD [address] [place], [place] [phone] Clinical Psychologist Psychology 09/16/21 Yasmine Cohen, RN [address] [place] [address] [facility] [employer] Executive 07/21/22 08/26/23 Bre Almaguer, RN [address] [facility] [address] [place] [address] [facility] [employer] Executive 10/03/22 11/13/22 Romero Pryor MD [address] [place] [address] Cardiovascular Disease 02/05/23 Prerna Paulino MD [address] [place] [address] Internal Medicine 07/04/24 Magda Davis MD [address] [place], [place] [phone] Gastroenterology 07/04/24 Ifeoma Hanson MD [address] [place] [phone] Endocrinology 07/04/24 Ifeoma Hanson MD [address] [place] [phone] Endocrinology 11/26/24 documented as of this encounter
--- OUTSIDE RECORDS SUMMARY | 2025-07-24 20:31 | XMS_ITS | Clinical Summary ---
Author Organization Formerly [facility] Address [address] [place] [address] Care Team Providers Care Outdoor Recreation Specialist Name Role Phone Cathleen Allan MD Unavailable [phone] Pete Hester MD Unavailable [phone] Pati Armendariz PhD Unavailabl e Madhav Mcfadden MD Primary Care Provider [phone] Romero Pryor MD Unavailable [phone] Prerna Paulino MD Unavailable [phone] Magda Davis MD Unavailable [phone] Ifeoma Hanson MD Unavailable [phone] Ifeoma Hanson MD Unavailable [phone] Allergies Active Allergy Reactions Criticality Noted Date Comments Pertussis Vaccines Other (See Comments) Low 016 Paralysis Vancomycin Angioedema High 08/17/2023 Medications * This document contains information received from the source organization and may not represent a complete record from that organization. OMEprazole (PriLOSEC) 40 MG capsuleIndications :Gastroesophageal reflux disease with esophagitis, unspecified whether hemorrhage TAKE 1 CAPSULE TWICE A DAY 180 capsule 3 12/28/19 23 Active ondansetron (ZOFRAN) 4 MG tabletIndications: Bilious vomiting TAKE 1 TABLET BY MOUTH THREE TIMES A DAY EVERY 8 HOURS NEEDED FOR NAUSEA AND VOMITING 20 tablet 1 02/08/20 23 Active B-D HYPODERMIC NEEDLE 21GX1 21G X 1 Misc USE TO DRAW UP TESTOSTERONE EVERY 3 DAYS 01/10/20 23 Active B-D 3CC LUER-LA SYR 25GX1 25G X 1 3 ML Misc 02/10/20 23 Active famotidine (PEPCID) 20 MG tabletIndications: Gastroesophageal reflux disease, unspecified whether esophagitis present TAKE 1 TABLET TWICE A DAY 180 tablet 3 04/04/20 23 Active Tralement 601-80-57-3000 MCG/ML injection 02/11/20 23 Active proMETHAZINE (PHENERGAN) 12.5 MG tablet Take 1 tablet (12.5 mg total) by mouth every 4 (four) hours as needed. Active tiZANidine (ZANAFLEX) 4 MG tabletIndications: Post-traumatic spasticity TAKE 1 TABLET BY MOUTH 3 TIMES A DAY. 90 tablet 11/12/19 24 Active pyRIDostigmine [place] 60 MG/5ML Solution Take by mouth. Activ e Motegrity 2 MG tabletIndications: Irritable bowel syndrome with constipation TAKE 1 TABLET BY MOUTH EVERY DAY 30 tablet 3 02/25/20 24 Active multiple vitamin (M.V.I. Adult) injection 01/07/20 24 Active sodium chloride (1/2 NS) 0.45 % solution 02/18/20 24 Active Parenteral Electrolytes (TPN ELECTROLYTES IV) Infuse into a venous catheter. Active Syringe, Disposable, (B-D SYRINGE LUER-LA 1CC) 1 ML MiscIndications:Ty pe 2 diabetes mellitus with hyperglycemia, without long-term current use of insulin ([facility]) Use t inject testosterone weekly. 12 each 08/11/19 25 Active NEEDLE, DISP, 18 G (BD Disp [place]) 18G X 1-1/2 MiscIndications:Ty pe 2 diabetes mellitus with hyperglycemia, without long-term current use of insulin ([facility]) Use to inject testosterone weekly. 12 each 08/11/19 25 Active NEEDLE, DISP, 25 G (B-D DISP NEEDLE 25GX1 ) 25G X 1 MiscIndications:Ty pe 2 diabetes mellitus with hyperglycemia, without long-term current use of insulin ([facility]) Use to inject testosterone weekly. 12 each 3 08/11/19 25 Active spacer for MDI (Aerochamber/Breat heRite/Ellipse) DeviceIndications: Post-COVID chronic cough Use as instructed 1 each 09/22/19 25 Active fenofibrate (TRICOR) 145 MG tabletIndications: Other hyperlipidemia Take 1 tablet (145 mg total) by mouth daily. 90 tablet 3 10/16/19 25 Active testosterone cypionate (DEPO-TESTOSTERONE CYPIONATE) 200 mg/mL injectionIndicatio ns:Hypogonadism, male INJECT 0.75ML INTO THE MUSCLE EVERY 3 DAYS 20 mL 1 11/13/19 25 Active aprepitant (EMEND) 125 MG capsule Take 1 capsule (125 mg total) by mouth once. 09/18/19 25 Active propranolol (INDERAL) 80 MG tablet 1 tablet (80 mg total) by Mouth/Oral Cavity route every 12 hours. 09/16/19 25 Active Continuous Glucose Sensor (Dexcom G7 Sensor) MiscIndications:Ty pe 2 diabetes mellitus with hyperglycemia, without long-term current use of insulin ([facility]) Apply 1 Device topically continuously. Use 1 sensor every 10 days 9 each 3 02/12/20 25 Active tirzepatide (MOUNJARO) 10 mg/0.5 mL pen-injectorIndica tions:Type 2 diabetes mellitus with hyperglycemia, without long-term current use of insulin ([facility]) Inject 1 Pen (10 mg total) under the skin once a week. 6 mL 1 04/08/20 25 Active zolpidem (AMBIEN) 10 MG tabletIndications: Primary insomnia TAKE 1 TABLET BY MOUTH EVERY DAY AT NIGHT 90 tablet 05/19/20 25 Active carisoprodol (SOMA) 350 MG tabletIndications: Complex regional pain syndrome type 2 of left upper extremity Take 1 tablet (350 mg total) by mouth 2 (two) times a day as needed for muscle spasms. 60 tablet 06/10/20 25 Active atorvastatin (LIPITOR) 10 MG tabletIndications: Mixed hyperlipidemia TAKE 1 TABLET BY MOUTH EVERY DAY 90 tablet 1 06/15/20 25 Active HYDROmorphone (DILAUDID) 4 MG tabletIndications: Discitis of thoracic region Take 1 tablet (4 mg total) by mouth 4 times daily (every 6 hours) as needed for severe pain. Max Daily Amount: 16 mg 120 tablet 11/25/20 25 Active Buprenorphine (BUTRANS) 20 MCG/HR weekly patchIndications:C omplex regional pain syndrome type 2 of left upper extremity Place 1 patch on the skin every 7 days. Max Daily Amount: 1 patch 4 patch 1 07/23/20 Active Buprenorphine (BUTRANS) 20 MCG/HR weekly patchIndications:C omplex regional pain syndrome type [address] of [address] extremity Place 1 patch on the skin every 7 days. Max Daily Amount: 1 patch 4 patch 1 06/10/20 025 Discontin ued(Reord er) oxyCODONE (ROXICODONE) 10 mg immediate release tabletIndications: Complex regional pain syndrome type 2 of left upper extremity Take 1 tablet (10 mg total) by mouth 3 times daily (every 8 hours) as needed for severe pain. Max Daily Amount: 30 mg 90 tablet 06/10/20 025 Discontin ued(Thera py completed ) Buprenorphine (BUTRANS) 20 MCG/HR weekly patchIndications:C omplex regional pain syndrome type 2 of left upper extremity Place 1 patch on the skin every 7 days. Max Daily Amount: 1 patch 4 patch 1 06/30/20 025 Discontin ued(Reord er) Active Problems Problem Noted Date Diagnosed Date Contact dermatitis and eczema due to plant 12/20 Current moderate episode of major depressive disorder without prior episode 09/26/2024 Dysautonomia 07/04/2024 Type 2 diabetes mellitus wit h hyperglycemia, without long-term current use of insulin 02/16/2023 On total parenteral nutrition (TPN) 11/09/2022 Gastrointestinal tube present 11/09/2022 Intractable nausea and vomiting 11/01/2022 Moderate malnutrition (HCC)- mild orbital fat pad loss, weight loss >10% x 6 months 07/16/2022 Gastroparesis 07/13/2022 GERD (gastroesophageal reflux disease) Hardware complicating wound infection 12/16/2021 Overview (10/17/2022): Last Assessment & Plan: Plan to continue current antibiotics to complete 4 weeks of oral therapy (8 weeks total). Patient is to see Ortho on 01/05. No need to see us again in case Ortho continues to be satisfied with his wound. Lymphedema of left upper extremity 09/26/2021 Complex regional pain syndro me type 2 of left upper extremity 09/26/2021 Pain from implanted hardware 09/26/2021 Complex regional pain syndro me type 1 of left upper extremity 07/25/2021 ADD (attention deficit disorder) 08/14/2020 Hypogonadism in male 08/14/2020 Chronic tension-type headache, intractable 11/24 Irritable bowel syndrome 03/14/2019 Acquired deviated nasal septum 02/26/2019 Obstructive sleep apnea on CPAP 01/23/2017 Hypertension 08/11/2016 Other insomnia 08/27/2014 Mixed hyperlipidemia 08/26/2013 Obesity (BMI 30.0-34.9) 08/26/2013 Overview (08/28/2015): Description : BMI 31 Resolved Problems Problem Noted Date Diagnosed Date Resolved Date VELIA (acute kidney injury) 01/23/2023 Erythrocytosis 10/17/2022 10/18/2022 Abdominal wall cellulitis 09/19/2022 Paralysis 07/13/2022 10/18/2022 Syncope and collapse 07/13/2022 023 Muscle spasticity 02/22/2022 10/18/2022 Overview (10/17/2022): Added automatically from request for surgery [id number] Absolute anemia 12/16/2021 02/14/2023 Overview (10/17/2022): Last Assessment & Plan: Patient to see Hematology closer to his home. Will also establish care with a PCP. Therapeutic drug monitoring 12/16/2021 10/18/2022 Polymicrobial bacterial infection 12/04/2021 10/18/2022 Infection of humerus 11/18/2021 023 Overview (10/17/2022): Added automatically from request for surgery [id number] Post-operative infection 11/18/2021 Dysphagia 10/31/2021 10/18/2022 Overview (10/17/2022): Post op UTI (urinary tract infection) 10/27/2021 10/18/2022 Overview (10/17/2022): Last Assessment & Plan: 36 M HTN, brachial pleoxopathy, POD# 9 s/p L brachial plexus exploration, distal ulnar nerve release, PIN neurolysis, median nerve neurolysis,supraclavicular lymph node free flap to elbow, Ucx growing Pseudomonas post ortiz and straight cath. He is asymptomatic and improved on Abxs not targeting Pseudomonas; however, had fever and leukocytosis at some point. Recommend: -for now, can change PO Abx to cipro 500 mg bid -Please repeat UCx and UA. If Ucx negative, may dc Abxs soon after. If positive, recommend 7 days of therapy -Pls call back if organism is resistant to cipro or if you have questions Jose Danielle MD Attending Physician - Infectious Disease Division [facility] Surgery, elective 10/27/2021 10/18/2022 Overview (10/17/2022): L brachial plexus exploration, distal ulnar nerve release, carpal tunnel release, PIN neurolysis, median nerve and elbow neurolysis, vascularized supraclavicular lymph node free flap to elbow 10/18/21 Dr Cruz Status post surgery 10/18/2021 10/19/19 23 Dehydration, moderate 10/16/20212022 Contusion of right hand 10/11/202110/04 Injury of left brachial plexus 09/26/2021 10/18/2022 Adjustment disorder with mix ed anxiety and depressed mood 09/20/2021 09/26/2024 Chronic pain disorder 08/14/20202022 Nervous system device, impla nt, or graft infection or inflammation 08/14/2020 10/18/2022 Anxiety 08/14/2020 09/26/2024 HTN (hypertension) 08/14/2020 Cellulitis 08/04/2020 01/16/2022 Complex regional pain syndro me type 2 of left upper extremity 07/14/2020 10/18/2022 Nausea 06/28/2020 01/16/2022 ADHD, adult residual type 05/19/2020 Pain 09/29/2019 01/16/2022 Lymphedema 09/29/2019 01/16/2022 Nerve pain 09/13/2019 01/16/2022 Complex regional pain syndro me type 1 of left upper extremity 06/18/2019 10/18/2022 Hospital discharge follow-up 04/07/2019 01/16/2022 Bee sting reaction 04/07/2019 3 Nerve root inflammation 03/12/201901/04 Chronic maxillary sinusitis 02/26/2019 10/18/2022 Postnasal drip 02/10/2019 10/18/2022 Obstructive sleep apnea 02/10/201910/04 Hypertrophy of nasal turbinates 11/04/2018 10/18/2022 Rhinitis 11/04/2018 10/18/2022 Snoring 11/04/2018 10/18/2022 Pre-op evaluation 06/21/2018 01/16/2022 Deviated septum 06/21/2018 05/06/2020 Anxiety and depression 03/25/201808/25 Palpitations 03/24/2018 05/06/2020 Elevated liver function tests 01/23/2018 10/18/2022 Hypothyroidism 01/23/2018 10/18/2022 Anxiety 08/02/2017 05/06/2020 Snoring 01/23/2017 01/16/2022 Hives 10/27/2016 08/02/2017 Wheezing 09/22/2016 01/23/2017 Hypogonadism in male 07/13/2016 023 Elevated blood pressure read ing with diagnosis of hypertension 07/13/2016 09/22/2016 Epididymitis, right 06/12/2016 07/13/20 16 Fatigue 03/21/2016 05/06/2020 Frequent bowel movements 03/21/201608/2019 Medication management 12/20/20152019 Cellulitis 08/31/2015 03/21/2016 Attention deficit disorder 08/26/2013 0 01/16/2022 Other malaise and fatigue 08/26/2013 Encounters Date Type Department Care Team Description 07/23/2025 1:20 PM EST Office Visit [id number] [address] [place] [address] Reji Mi, Complex regional pain syndrome type 2 of left upper extremity (Primary Dx); Discitis of thoracic region; Encounter for long-term opiate analgesic use; Encounter for therapeutic drug monitoring 06/30/2025 9:20 AM EST Office Visit [id number] [address] [place] [address] Reji Mi DO Complex regional pain syndrome type 2 of left upper extremity (Primary Dx); Discitis of thoracic region; Encounter for long-term opiate analgesic use; Encounter for therapeutic drug monitoring 06/15/2025 Scanned Document [facility] CARDIOLOGY SCAN Cardiology, Scan 06/10/2025 1:00 PM EST Telemedicine [id number] [address] [place] [address] Reji Mi DO Discitis of thoracic region (Primary Dx); Complex regional pain syndrome type 2 of left upper extremity; Encounter for long-term opiate analgesic use; Encounter for therapeutic drug monitoring; Chronic left shoulder pain; Spasm 06/05/2025 9:36 AM EDT - 06/05/2025 11:59 PM EDT Hospital Encounter [facility] Radiology [facility] [address] [place] [phone] Reji Mi, Discharge Disposition: Home or Self Care 06/05/2025 9:36 AM EDT - 06/05/2025 11:59 PM EDT Hospital Encounter [facility] Radiology [facility] [address] [place] [phone] Reji Mi, Discharge Disposition: Home or Self Care 06/03/2025 9:30 AM EDT Office Visit [facility] Endocrinology [address] [place] [address] Ifeoma Hanson MD Type 2 diabetes mellitus with hyperglycemia, without long-term current use of insulin (HCC) (Primary Dx); Hypogonadism in male from Last 3 Months Immunizations Immunization Administration Dates Next Due Covid-19 mRNA Jordon-sucrose S easonal Vaccine - Pfizer 30 mcg/0.3 mL 12 years and older 07/04/2024,02/29/2024 DT 01/08/2007 HPV Nonavalent 02/28/2022,08/16/2021,06/10/2021 Influenza (AFLURIA/FLUZONE) Inactivated/Split Quadrivalent with Preservative IM 07/12/2015,06/16/2011 Influenza Inactivated/Split Preservative Free IM 04/17/2020,06/20/2019,06/11/2018,07/02(Deferred: Patient Refused),04/28/2013,06/06/2012 Influenza, Quadrivalent (FLU ARIX, AFLURIA, FLULAVAL, FLUZONE) Preservative Free IM 08/22/2023,06/09/2022,06/20/2019 Influenza, Quadrivalent (FLU CELVAX) MDCK, Preservative Free IM 06/09/2022 Pneumococcal Conjugate 20-Valent 02/29/2024 Pneumococcal Polysaccharide 23-Valent 05/06/2020 Family History Medical History Relation Name Comments No Known Problems Father Hypertension Mother Relation Name Status Comments Father Alive Mother Alive Social History Tobacco Use Types Packs/Day Years Used Date Smoking Tobacco: Never Passive Smoke Exposure: Past Smokeless Tobacco: Never Tobacco Cessation:Counseling Given: Not Answered Alcohol Use Standard Drinks/Week Comments Not Currently 0 (1 standard drink = 0.6 oz pur e alcohol) [facility] Utilities Answer Date Recorded In the past 12 months has [employer], gas, oil, or water [employer] threatened to shut off services in your home? No 09/18/2024 Social Connection and Isolation Panel Answer Date Recorded In a typical week, how many times do you talk on the phone with family, friends, or neighbors? More than three times a week 09/18/2024 Frequency of Social Gatherin gs with Friends and Family Not on file 09/18/2024 Attends [employer] Not on file 09/18 Active Member [...] place to sleep or slept in a snf (including now)? No 04/02/2023 Housing Stability Vital Sign Answer Alden e Recorded In the last 12 months, was t here a time when you were not able to pay the mortgage or rent on time? No 09/18/2024 In the past 12 months, how m any times have you moved where you were living? 0 09/18/2024 At any time in the past 12 m [facility], were you homeless or living in a snf (including now)? No 09/18/2024 [facility] Occup[facility] ional [facility] - Occupational Stress [...] Orientation Heterosexual (straight) 08/16 10:08 AM EST Last Filed Vital Signs Vital Sign Reading Time Taken Comments Blood Pressure 155/83 07/23/2025 1:23 PM EST Pulse 66 07/23/2025 1:23 PM EST Temperature 36.7 C (98.1 F) 09/22/2024 7:19 PM EST Respiratory Rate 18 07/23/2025 1:23 PM EST Oxygen Saturation 97% 07/23/2025 1:23 PM EST Inhaled Oxygen Concentration - - Weight 98.9 kg (218 lb) 07/23/2025 1:23 PM EST Height 185.4 cm (6' 1 ) 07/23/2025 1:23 PM EST Body Mass Index 28.76 07/23/2025 1:23 PM EST Plan of Treatment Upcoming Encounters Date Type Department Care Team (Late st Contact Info) Description 2025 8:00 AM EST Office Visit [address] [phone] Madhav Mcfadden MD [address] [place] [phone] 09/01/2025 9:20 AM EST Office Visit [id number] [address] [place] [phone] ShmuelRejiil, DO [address] [place] [address] 09/29/2025 9:20 AM EST Office Visit [id number] [address] [place] [address] ShmuelReji Joni, DO [address] [place] [address], [place] [address] 10/27/2025 9:40 AM EDT Office Visit [id number] [address] [place] [phone] Shmuel Reji Joni, DO [address] [place] [address], [place] [address] 12/01/2025 9:40 AM EDT Office Visit [id number] [address] [place] [phone] ShmuelRejiil, DO [address] [place] [address], [place] [address] 02/03/2026 9:30 AM EDT Telemedicine [facility] Endocrinology [address] [phone] Ifeoma Hanson MD [address] [place] [phone] Health Maintenance Due Date Last Done Comments Foot Exam 1994 Ophthalmology Exam 1994 Hepatitis B Vaccines (1 of 3 - 19+ 3-dose series) 2003 DTaP/Tdap/Td Vaccines (2 - Tdap) 01/08/2017 01/09/20 07 Influenza Vaccine 03/06/2025 08/22/2023, , 06/09/2022, Additional history exists COVID-19 Vaccine (8 - 2024-2 6 season) 2025 07/04/2024, 02/29/2024, 06/09/2022, Additional history exists Lipid Panel 04/21/2025 04/21/2024, 08/07, 09/05/2022, Additional history exists Microalbumin/Creatinine Rati o Urine 04/21/2025 04/21/2024, 08/28/2023 Controlled Substance Agreeme nt Initial and Annual Review 09/16/2025 09/16/2024, 09/16/2024, 04/04/2020 Chronic Controlled Substance User PDMP Review 10/21/2025 07/23/2025, 06/10/2025, 04/23/2025, Additional history exists Chronic Controlled Substance Toxicology Screening 11/06/2025 11/06/2024, 11/06/2024, 12/18/2023, Additional history exists Hemoglobin A1C 12/02/2025 06/03/2025, 11/05, 09/18/2024, Additional history exists Creatinine with GFR 06/26/2026 06/26/2025, 06/25/2025, 06/24/2025, Additional history exists Physical 07/04/2026 07/04/2024, 12/20/2015 HPV Vaccines Completed 02/28/2022, 08/06, 06/10/2021 Pneumococcal Vaccine: Pediat yesenia (0-5 Years) and At-Risk Patients (6 to 49 Years) Completed 02/29/2024, 05/06/2020 HIV Screening Completed 04/01/2024, 03/06, 03/23/2023, Additional history exists Hepatitis C Virus Screening Completed 04/01/2024, 0 01/21/2018 Goals Goal Patient Goal Type Associated Problems Recent Progress Patient-Stated? Author OT LTG 1 Occupational Therapy No Maida Benito, DON Note: Patient will be independent with HEP for strengthening, desensitization, and coordination x12 weeks. 06/18/2019 He is independent with a desensitization HEP including scrubbing and using a rough cloth over arm, a theraputty HEP, and he was provided today with a [facility] HEP., ongoing OT LTG 2 Occupational Therapy No Maida Benito, OT Note: Patient will decrease Quick Dash score from 79.5 to 10 or less in order to complete functional tasks with greater ease x 12 weeks 06/18/2019 Scored the same today, ongoing OT LTG 3 Occupational Therapy No Maida Benito, OT Note: Patient will increase L slot floor attendant strength (4lbs) to 60 lbs or more in order to open pill bottles with greater ease x12 weeks Patient will increase L lateral pinch (3.5), L tip pinch (2.5), L 3 jaw pinch (2.5) by 5 lbs each in order for greater ease with typing x12 weeks. 06/18/2019 L slot floor attendant- 20 lbs L lateral pinch- 6.2 Tip [...] 4/5 Wrist flexors-5/5 Wrist extensors- 4/5 Ongoing Peggy Gong Stated Goals: I no longer have the motivation to do things Care Plan Pain No Pati Armendariz, PhD Note: Develop an enhanced capacity for emotional expression that enables adaptive coping with frustration, and other emotions Care Plan Pain No Pati Armendariz, PhD Medical Devices Implanted Type Area Tear Down Matcher Device Identifier Shelf Expiration Date Model / Serial / Lot 0- Kit Jejunostomy 45cm 16fr Diane Killian Secur-[place] [employer]-Slip Radopq - [id number] Implanted:Qty: 1 on 09/07/2022 by Nathanael Dasilva MD at [facility] Tube [employer] [id number] 05/02/2023 025-16 / [id number] / [id number] Kit Jejunostomy 45cm 16fr Diane Killian Secur-[place] [employer]-Slip Radopq - [id number] Implanted:Qty: 1 on 12/14/2022 by Doug Mckeon DO at [facility] Tube [employer] 10/04/2025 [id number] / [id number] / [id number] Kit Jejunostomy 45cm 16fr Diane Killian Secur-[employer]ip Radopq - [id number] Implanted:Qty: 1 on 01/23/2023 by Rossy Rhodes MD at [facility] T[employer] 10/27/2023 [id number] / [id number] / Sprint Microlead With Onepass Introducer Implanted:Qty: 1 on 02/05/2020 by Bal Dill MD at [facility] [place] Left: Chest Other 06/17/2021 [id number] / / [id number] Explanted Type Area Tear Down Matcher Device Identifier Shelf Expiration Date Model / Serial / Lot Sprint Endura Pns System Explanted:Qty: 1 on 02/05/2020 at [facility] Other 05/05/2020 [id number] / [id number] / [id number] Procedures Procedure Name Priority Date/Time Associated Diagnosis Comments MRI CERVICAL SPINE W W/O CONTRAST Routine 06/05/2025 11:10 AM EDT Complex regional pain syndrome type 2 of left upper extremity MRI BRACHIAL PLEXUS W W/O CONTRAST Routine 06/05/2025 11:06 AM EDT Complex regional pain syndrome type 2 of left upper extremity POCT GLYCOSYLATED HEMOGLOBIN (HGB A1C) Routine 06/03/2025 10:10 AM EDT Type 2 diabetes mellitus with hyperglycemia, without long-term current use of insulin (HCC) CREATININE WITH EGFR Routine 11/24/2024 10:28 AM EDT Type 2 diabetes mellitus with hyperglycemia, without long-term current use of insulin (HCC) PAIN MGMT, BUPRENORPHINE AND NALOXONE QN, URINE Routine 11/06/2024 9:55 AM EDT Encounter for long-term opiate analgesic use MICROALBUMIN, CREATININE, URINE, RANDOM Routine 04/21/2024 10:13 AM EDT Type 2 diabetes mellitus with hyperglycemia, without long-term current use of insulin (HCC) LIPID PANEL REFLEX DIRECT LDL Routine 04/21/2024 10:13 AM EDT Other hyperlipidemia HIV 1/2 AG/AB CMIA REFLEX TO CONFIRMATION Routine 04/01/2024 2:43 PM EDT Possible exposure to STD HEPATITIS C VIRUS (HCV) ANTIBODY Routine 04/01/2024 2:43 PM EDT Possible exposure to STD from Last 3 Months or Most Recently Relevant to Health Maintenance Results * MRI Cervical Spine w w/o contrast (06/05/2025 11:10 AM EDT) Anatomical Region Laterality Modality C-spine Magnetic Resonan ce 06/05/2025 11:4 1 AM EDT Impressions 06/05/2025 12:30 PM EDT Normal cervical spine. Incompletely visualized suspected T2/3 discitis osteomyelitis. See separately dictated brachial plexus unremarkable further discussion. Narrative 06/05/2025 12:30 PM EDT MRI CERVICAL SPINE W W/O CONTRAST: 06/05/2025 9:49 AM CLINICAL HISTORY: worsening pain into right shoulder and arm - history of brachial plexus injury. pt states some new rt shoulder and arm pain. no inj. no hx of ca.. Complex regional pain syndrome type 2 of left upper extremity. TECHNIQUE: Pre and postcontrast MRI of the cervical spine was performed on a 3 Elizabeth scanner using 10 cc Gadavist and the following pulse sequences: Precontrast sagittal and axial T1 and T2, sagittal fat-saturated T2, axial gradient echo, and postcontrast sagittal fat saturated T1 and axial T1. COMPARISON: Concurrently performed and separately dictated brachial plexus and 08/14/2022 cervical spine MRIs and 09/17/2024 cervical spine radiographs. FINDINGS: Vertebral body heights and alignment are preserved. Incompletely visualized T2/3 disc fluid and endplate erosion and marrow edema better seen on brachial plexus MRI suspicious for discitis osteomyelitis. Spinal cord is normal in caliber and signal. No abnormal cord or meningeal enhancement. Visualized posterior fossa is unremarkable. Intervertebral discs are normal in height and signal. Evaluation of individual levels demonstrates no disc herniation, spinal canal, or foraminal stenosis. Prevertebral and paraspinal soft tissues are unremarkable. Procedure Note Dominick Spencer MD - 06/05/2025 MRI CERVICAL SPINE W W/O CONTRAST: 06/05/2025 9:49 AM CLINICAL HISTORY: worsening pain into right shoulder and arm - history of brachial plexusinjury. pt states some new rt shoulder and arm pain. no inj. no hx of ca..Complex regional pain syndrome type 2 of left upper extremity. TECHNIQUE: Pre and postcontrast MRI of the cervical spine was performed on a 3 Teslascanner using 10 cc Gadavist and the following pulse sequences:Precontrast sagittal and axial T1 and T2, sagittal fat-saturated T2, axialgradient echo, and postcontrast sagittal fat saturated T1 and axial T1. COMPARISON: Concurrently performed and separately dictated brachialplexus and 08/14/2022 cervical spine MRIs and 09/17/2024 cervical spineradiographs. FINDINGS: Vertebral body heights and alignment are preserved. Incompletelyvisualized T2/3 disc fluid and endplate erosion and marrow edema betterseen on brachial plexus MRI suspicious for discitis osteomyelitis. Spinalcord is normal in caliber and signal. No abnormal cord or meningeal enhancement. Visualized posterior fossa isunremarkable. Intervertebral discs are normal in height and signal.Evaluation of individual levels demonstrates no disc herniation, spinalcanal, or foraminal stenosis. Prevertebral and paraspinal soft tissues are unremarkable. IMPRESSION: Normal cervical spine. Incompletely visualized suspected T2/3 discitis osteomyelitis. Seeseparately dictated brachial plexus unremarkable further discussion. us Reji Mi DO IMG MRI ORDERABLES Final Resu lt * MRI Brachial plexus w w/o contrast (06/05/2025 11:06 AM EDT) Anatomical Region Laterality Modality C-spine Magnetic Resonan ce 06/05/2025 11:4 8 AM EDT Addenda Addendum by Axel Wallace MD on 06/05/2025 1:02 PM EDT There is a dictation error regarding the level of discitis osteomyelitis in the impression. IMPRESSION should read: 1. Changes concerning for discitis osteomyelitis at T2-T3. Impressions 06/05/2025 11:59 AM EDT 1. Changes concerning for discitis osteomyelitis at T1-T2 Narrative 06/05/2025 11:59 AM EDT EXAM: MRI BRACHIAL PLEXUS W W/O CONTRAST on 06/05/2025 9:36 AM INDICATION: PEGGY GONG is a 39 years old Male with a submitted history of worsening pain into right shoulder and arm - history of LEFT brachial plexus injury. pt states left sided nerve surgery and pain. no hx of ca.. COMPARISON: MRI cervical spine dated 08/14/2022. TECHNIQUE: Multiplanar multisequence MRI was performed of the left brachial plexus before and after administration of 10 mL of Gadavist intravenous contrast. FINDINGS: No cervical ribs. No mass, abnormal signal or enhancement is seen along the course of the left brachial plexus. No lateral meningocele is seen. Limited evaluation of the cervical spine demonstrates geovanny fluid signal in the T2-T3 joint space with endplate erosion and adjacent subchondral marrow edema and enhancement. There is paraspinal soft tissue edema enhancement. No rim-enhancing abscess. Limited evaluation of the soft tissues demonstrates a mildly enlarged left submandibular space lymph node. Procedure Note Axel Wallace MD - 06/05/2025 EXAM: MRI BRACHIAL PLEXUS W W/O CONTRAST on 06/05/2025 9:36 AM INDICATION: PEGGY GONG is a 39 years old Male with a submitted historyof worsening pain into right shoulder and arm - history of LEFT brachialplexus injury. pt states left sided nerve surgery and pain. no hx ofca.. COMPARISON: MRI cervical spine dated 08/14/2022. TECHNIQUE: Multiplanar multisequence MRI was performed of the leftbrachial plexus before and after administration of 10 mL of Gadavistintravenous contrast. FINDINGS: No cervical ribs. No mass, abnormal signal or enhancement is seen along the course of theleft brachial plexus. No lateral meningocele is seen. Limited evaluation of the cervical spine demonstrates geovanny fluid signalin the T2-T3 joint space with endplate erosion and adjacent subchondralmarrow edema and enhancement. There is paraspinal soft tissue edemaenhancement. No rim-enhancing abscess. Limited evaluation of the soft tissues demonstrates a mildly enlarged leftsubmandibular space lymph node. IMPRESSION: 1. Changes concerning for discitis osteomyelitis at T1-T2 Reji Mi DO IMG MRI ORDERABLES Edited Res ult - Final * POCT Glycosylated Hemoglobin (Hb A1C) (06/03/2025 10:10 AM EDT) Hemoglobin A1C 5.4 4.0 - 6.0 % Lot Number [id number] Laboratory Equipment Installer Pass Pass Blood 06/03/2025 10:1 0 AM EDT Ifeoma Hanson MD POINT OF CARE TEST ORDERABLE S Final Result * (ABNORMAL) Pain Mgmt, Buprenorphine And Naloxone Qn, Urine (Q [id number]) (11/06/2024 9:55 AM EDT) Buprenorphine, Urine 6(H) <2 ng/mL [facility] Norbuprenorphine, Urine 19(H) <2 ng/mL [facility] Naloxone NEGATIVE <2 ng/mL [facility] Buprenorphine Comments [facility] Comment:See Buprenorphine No glenroy, LDT Notes Urine Urine specimen / Unknown 11/06/2024 9:55 AM EDT 11/06/2024 9:43 PM EDT Reji Mi DO URINE ORDERABLES Final Result [facility] [address] [place] [phone] * (ABNORMAL) Lipid Panel Reflex Direct LDL (04/21/2024 10:13 AM EDT) Cholesterol, Total 175 <200 mg/dL [facility] Cholesterol, HDL 51 > OR = 40 mg/dL [facility] Triglycerides 89 <150 mg/dL [facility] LDL Cholesterol 106(H) mg/dL (calc) [facility] Comment: Reference range: <100 Desirable range <100 mg/dL for primary prevention; <70 mg/dL for patients with CHD or diabetic patients with > or = 2 CHD risk factors. LDL-C is now calculated using the Tony-Fabio calculation, which is a validated novel method providing better accuracy than the Friedewald equation in the estimation of LDL-C. Tony JAMISON et al. SCOTT. 2013;310(19): 0450-4151 (http://education.Opternative/faq/VLE744) Cholesterol/HDL Ratio 3.4 <5.0 (calc) [facility] Non HDL Chol. (LDL+VLDL) 124 <130 mg/dL (calc) [facility] Comment: For patients with diabetes plus 1 major ASCVD risk factor, treating to a non-HDL-C goal of <100 mg/dL (LDL-C of <70 mg/dL) is considered a therapeutic option. Blood specimen (specimen) Blood specimen / Unknown 04/21/2024 10:13 AM EDT 04/21/2024 10:16 AM EDT Narrative [facility] - 04/25/2024 7:44 AM EDT FASTING:YES FASTING: YES Ifeoma Hanson MD LAB BLOOD ORDERABLES Final R esult Performing Organization Address [facility] Co de Phone Number [employer] [address] [place] [phone] * Microalbumin, Creatinine, Urine, Random (04/21/2024 10:13 AM EDT) Creatinine, Urine, Random 230 20 - 320 mg/dL [facility] Microalbumin, Urine, Random 0.6 See Note: mg/dL [facility] Comment: Reference Range: Reference Range Not established Verified by repeat analysis. Microalbumin/Creat inine Ratio 3 <30 mg/g creat [facility] Comment: The ADA defines abnormalities in albumin excretion as follows: Albuminuria Category Result (mg/g creatinine) Normal to Mildly increased <30 Moderately increased 30-299 Severely increased > OR = 300 The ADA recommends that at least two of three specimens collected within a 3-6 month period be abnormal before considering a patient to be within a diagnostic category. Urine Voided urine specimen / Unknown 04/21/2024 10:13 AM EDT 04/21/2024 10:16 AM EDT Narrative [facility] - 04/25/2024 7:44 AM EDT FASTING:YES FASTING: YES Ifeoma Hanson MD URINE ORDERABLES Final Resul t Performing Organization Address [facility] Co de Phone Number [employer] [address] [place] [phone] * HIV 1/2 Ag/Ab CMIA Reflex to Confirmation (04/01/2024 2:43 PM EDT) HIV Ag/Ab, 4th Gen NON-REACT SUKHDEV NON-REACT SUKHDEV [facility] Comment: HIV-1 antigen and HIV-1/HIV-2 antibodies were not detected. There is no laboratory evidence of HIV infection. PLEASE NOTE: This information has been disclosed to you from records whose confidentiality may be protected by state law. If your state requires such protection, then the state law prohibits you from making any further disclosure of the information without the specific written consent of the person to whom it pertains, or as otherwise permitted by law. A general authorization for the release of medical or other information is NOT sufficient for this purpose. For additional information please refer to http://[employer]/faq/YDG272 (This link is being provided for informational/ educational purposes only.) The performance of this assay has not been clinically validated in patients less than 2 years old. Blood Blood specimen / Unknown 04/01/2024 2:43 PM EDT 04/01/2024 2:44 PM EDT [facility] ARIZMENDI LAB BLOOD ORDERABLES Final Result Performing Organization Address [facility] de Phone Number [employer] [address] [place] [phone] * Hepatitis C Antibody (04/01/2024 2:43 PM EDT) [facility] Hepatitis C Antibody NON-REACT SUKHDEV NON-REACT SUKHDEV [facility] Comment: HCV antibody was non-reactive. There is no laboratory evidence of HCV infection. In most cases, no further action is required. However, if recent HCV exposure is suspected, a test for HCV RNA (test code 31357) is suggested. For additional information please refer to http://[employer]/faq/KDY91o4 (This link is being provided for informational/ educational purposes only.) Blood Blood specimen / Unknown 04/01/2024 2:43 PM EDT 04/01/2024 2:44 PM EDT [facility] ARIZMENDI LAB BLOOD ORDERABLES Final Result Performing Organization Address [facility] Co de Phone Number [employer] [address] [place] [phone] from Last 3 Months or Most Recently Relevant to Health Maintenance Additional Health Concerns Active Problems Noted Date Diagnosed Date Pain 09/26/[id number] [place] [address] [phone] [place] [phone] [place] [address] [phone] [place] [address] Advance Directives * Full Code (Latest Code Status on File) Date Activated Date Inactivated Comments 01/23/2023 9:07 AM * Full Code Date Activated Date Inactivated Comments 11/01/2022 3:31 AM 12/14/2022 2:50 PM * Full Code Date Activated Date Inactivated Comments 09/18/2022 10:05 PM 10/31/2022 9:58 PM * Full Code Date Activated Date Inactivated Comments 07/13/2022 9:14 PM 09/07/2022 12:22 PM * Full Code Date Activated Date Inactivated Comments 08/04/2020 2:09 AM 08/24/2020 11:22 AM Question Answer Comments Decision Thoroughly Discussed with: Patient Healthcare Agents on File Name Relationship Healthcare Agent Ronald Talley and Michael Gong Parent 4. Next of K in (Spouse, Adult Child, Parent, Adult Sibling, Grandparent) Care Teams Outdoor Recreation Specialist Relationship Specialty Start Date End Date Madhav Mcfadden MD [facility] [place] [address] PCP - General Family Medicine 01/16/22 Cathleen Allan MD Urology 09/15/16 Pete Hester MD [address] [place] [address] Surgery, Orthopedic 08/15/19 Anthony Gallegos, Pati Medina, PhD [address] [place] [phone] Clinical Psychologist Psychology 09/16/21 Romero Pryor MD [address] [place] [address] Cardiovascular Disease 02/05/23 Prerna Paulino MD [address] [place] [address] Internal Medicine 07/04/24 Magda Davis MD [address] [place] [address] [place] [address] Gastroenterology 07/04/24 [place] [address] [place] [id number] Endocrinology 07/04/24 Ifeoma Hanson MD [address] [place] [phone] Endocrinology 11/26/24
--- OUTSIDE RECORDS SUMMARY | 2025-07-24 20:31 | XMS_ITS | Clinical Summary ---
Author Organization [address] Address [address] [place] [phone] Care Team Providers Care Senior Sales Administrator Name Role Phone Madhav Mcfadden MD Primary Care Provider [phone] Allergies No known active allergies Medications buprenorphine (BUTRANS) 20 mcg/hour transdermal patch Place 1 patch onto the skin once a week. (Sunday). Active atorvastatin (LIPITOR) 10 mg tablet 1 tablet (10 mg total) by Per J Tube route daily. 023 Active famotidine (PEPCID) 20 mg tablet 1 tablet (20 mg total) by Per J Tube route 2 (two) times daily. (OTC). 023 Active testosterone cypionate (DEPOTESTOTERONE CYPIONATE) 200 mg/mL injection Inject 0.75 mLs (150 mg total) into the muscle every 3 (three) days. Active zolpidem (AMBIEN) 10 mg tablet 1 tablet (10 mg total) by Per J Tube route nightly. 023 Active trace elements Zn-Cu-Mn-Se, Tralement, (TRALEMENT) 3 mg-0.3 mg-55 mcg-60 mcg/mL Soln by Per J Tube route daily. via TPN. 023 Active fenofibrate (TRICOR) 145 mg tablet 1 tablet (145 mg total) by Per J Tube route daily. 024 Active propranoloL (INDERAL) 80 mg Immediate Release tablet 1 tablet (80 mg total) by Per J Tube route 2 (two) times daily. Active MVI adult (MVI) 3,300 unit- 150 mcg/10 mL injection Inject into the vein daily. (via TPN). 024 Active CATHFLO ACTIVASE 2 mg injection Inject 2 mLs (2 mg total) into the vein once as needed. 024 Active qxwpdo-awz-asi-Ca -chlor-acetat (TPN ELECTROLYTES II) 18-18-5-4.5-35 mEq/20 mL Soln Inject into the vein. TPN without Lipids Infusing 14 hours/day. Active EPINEPHrine 0.3 mg/0.3 mL Inj auto-injectorIndi cations:Past history of insect allergy Inject 0.3 mg into the muscle once as needed for anaphylaxis for up to 1 dose. 2 each 1 025 Active pyridostigmine (MESTINON) 60 mg/5 mL syrupIndications: Gastroparesis,Gas trointestinal dysmotility TAKE 5 MLS (60 MG TOTAL) BY MOUTH 3 (THREE) TIMES DAILY. 473 mL 12 025 Active MOUNJARO 10 mg/0.5 mL Pen Injector Inject 1 Pen (10 mg total) under the skin once a week. (Sunday). 025 Active cyproheptadine (PERIACTIN) 4 mg tabletIndications :Intractable vomiting with nausea TAKE 1 TABLET (4 MG TOTAL) BY PER J TUBE ROUTE 3 (THREE) TIMES DAILY. 90 tablet 3 025 Active carisoprodoL (SOMA) 350 mg tablet 1 tablet (350 mg total) by Per J Tube route 2 (two) times daily as needed for muscle spasms. Active metoclopramide HCl (GIMOTI) 15 mg/spray sprp Use 1 spray in one nostril 4 (four) times daily as needed. Active prucalopride (MOTEGRITY) 1 mg Tab tablet 1 tablet (1 mg total) by Per J Tube route daily. Active ondansetron, PF, (ZOFRAN) 4 mg/2 mL Soln injection Inject 2 mLs (4 mg total) into the vein every 6 (six) hours as needed (for nausea or vomiting). Active nutritional supplement-fiber ([employer] STANDARD 1.4) 0.06 gram-1.4 kcal/mL Liqd Take 325 mLs by mouth 3 (three) times daily. Active esketamine (SPRAVATO) 28 mg nasal spray Use 28 mg in one nostril every 14 (fourteen) days. Active ibuprofen (ADVIL,MOTRIN) 200 mg tablet Take 2-3 tablets (400-600 mg total) by mouth 2 (two) times daily as needed for pain. Active cefTRIAXone (ROCEPHIN) 2 g in sodium chloride 0.9% PF 0.9% 20 mL (100 mg/mL) 20 mLs (2 g total) by IV Push route every 24 hours. 2024 Active vancomycin (VANCOCIN) 1.25 g in sodium chloride 0.9% 250 mL IVPB Inject 1.25 g at 166.7 mL/hr over 90 minutes into the vein every 8 (eight) hours. 2024 Active oxyCODONE 20 mg tablet Take 1 tablet (20 mg total) by mouth every 8 (eight) hours as needed for pain (for severe pain). 20 tablet Active oxyCODONE (ROXICODONE) 10 mg Immediate Release tablet Take 1 tablet (10 mg total) by mouth every 6 (six) hours as needed for pain (for moderate pain). Active lansoprazole (PREVACID SOLUTAB) [address] 1 tablet (15 mg total) onto the tongue daily. 90 tablet 1 Active oxyCODONE (ROXICODONE) 10 mg Immediate Release tablet 1 tablet (10 mg total) by Per J Tube route every 8 (eight) hours as needed for pain. 2024 Discontinued(S top Taking at Discharge) lansoprazole (PREVACID SOLUTAB) 30 mg disintegrating tablet 1 tablet (30 mg total) by Per J Tube route daily. 2024 Discontinued(D ose adjustment) ibuprofen (ADVIL,MOTRIN) 200 mg tablet Take 4 tablets (800 mg total) by mouth every 12 (twelve) hours as needed for pain. 2024 Discontinued HYDROmorphone (DILAUDID) 2 mg tabletIndications :Osteomyelitis, unspecified site, unspecified type (HC Code) (HC CODE) 1-2 tablets (2-4 mg total) by Per J Tube route 4 (four) times daily as needed for pain for up to 5 days. 34 tablet /21/ 2025 Discontinued(S top Taking at Discharge) oxyCODONE (ROXICODONE) 5 mg Immediate Release tablet Take 1 tablet (5 mg total) by mouth every 4 (four) hours as needed for pain (for moderate pain). 30 tablet 025 2024 Discontinued(S top Taking at Discharge) oxyCODONE (ROXICODONE) 5 mg Immediate Release tablet Take 2 tablets (10 mg total) by mouth every 6 (six) hours as needed for pain (for severe pain). 025 2024 Discontinued(S top Taking at Discharge) oxyCODONE (ROXICODONE) 10 mg Immediate Release tablet Take 0.5 tablets (5 mg total) by mouth every 6 (six) hours as needed for pain (for moderate pain). 30 tablet 025 2024 Discontinued oxyCODONE (ROXICODONE) 10 mg Immediate Release tablet Take 1 tablet (10 mg total) by mouth every 6 (six) hours as needed for pain (for severe pain). 025 2024 Discontinued oxyCODONE (ROXICODONE) 10 mg Immediate Release tablet Take 1 tablet (10 mg total) by mouth every 6 (six) hours as needed for pain (for moderate pain). 30 tablet 025 2024 Discontinued oxyCODONE (ROXICODONE) 10 mg Immediate Release tablet Take 2 tablets (20 mg total) by mouth every 6 (six) hours as needed for pain (for severe pain). 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 12/18/2023 Bacteremia due to Gram-negative bacteria 024 Gastroparesis 08/20/2023 Brachial plexus injury 08/20/2023 Fever in adult 08/17/2023 On total parenteral nutrition (TPN) 06/11/2023 Central line complication, initial encounter Fever and chills 03/16/2023 Encounters Date Type Department Care Team Description 07/24/2025 Refill [facility] [address] [place] [id number] Magda Davis MD Medication Refill 07/23/2025 Results Follow-Up [facility] Infect[facility] Disease [address] [place] [address] Shaka Thacker APRN Lab Scan 07/21/2025 Scanned Document [facility] [address] [facility] [address] [place] [address] 07/20/2025 Pharmacy Encounter [facility] Infect[facility] Disease [address] [place] [address] Lela Zafar, PharmD 07/15/2025 Results Follow-Up [facility] Infect[facility] Disease [address] [place] [address] Bianka Antonio PA Lab Scan 07/15/2025 Telephone [facility] Infect[facility] Disease [address] [place] [address] Chirag Perry, PharmD Antibiotic Infusion 07/14/2025 Pharmacy Encounter [facility] Infect[facility] Disease [address] [place] [address] Lela Zafar, PharmD 07/14/2025 Scanned Document [facility] [address] [place] [address] Provider, Historical 07/13/2025 Pharmacy Encounter [facility] Infect[facility] Disease [address] [place] [address] Lela Zafar, PharmD 07/10/2025 Refill [facility] [address] [place] [address], [place] [address] Petrona Nesbitt PA Medication Refill 07/08/2025 Results Follow-Up [facility] Infectious Disease [address] [place] [address] Magda Berman PA Lab Scan 07/08/2025 Telephone [facility] [address] [place] [address] 8 [facility] [place] [address] Ebonie Crowley MD Order (TPN) 07/08/2025 Telephone Surgery Bariatrics [address] [place] [address] 8 [facility] [place] [address] Ebonie Crowley MD Referral 07/06/2025 Orders Only [facility] [address] [place] [address] Toñito Greco RN 07/06/2025 Telephone [facility] Infectious Disease [address] [place] [address] Toñito Greco, RAEANN Antibiotic Infusion 07/06/2025 Scanned Document [facility] [address] [place] [address] Ebonie Crowley MD 07/06/2025 Telephone [facility] Infectious Disease [address] [place] [address] Kerry Kaba MD Other 07/06/2025 Orders Only [facility] [address] [place] [address] Shaka Thacker APRN 07/06/2025 Telephone [facility] Infectious Disease [address] [place] [address] Kerry Kaba MD Other 07/06/2025 Telephone [facility] Infectious Disease [address] [place] [address] Kerry Kaba MD Results; Antibiotic Infusion 07/06/2025 Pharmacy Encounter [facility] [address] [place] [address] Chirag Perry, PharmD 06/29/2025 Telephone [facility] at [facility] [address] [facility] [address] [place] [address] Zenaida Collins, RD Appointment 06/29/2025 Patient Outreach [facility] Call Center [address] [place] [address] [facility] Discharge Follow Up 06/29/2025 Telephone [facility] [address] [place] [address] Merari Salomon, AbundioD Antibiotic Infusion 06/29/2025 Lab Requisition [facility] [address] [place] [address] Kerry Kaba MD Osteomyelitis of vertebra, site unspecified (HC Code) (HC CODE) 06/23/2025 Transcribed Orders [facility] [address] [place] [address] Lab Provider, No Fax Routine general medical examination at a health care facility (Primary Dx) 06/23/2025 Scanned Document [facility] [address] [place] [address] System, Provider Not In 06/23/2025 Orders Only [facility] Xray [address] [place] [address] Physician, Radiology Referring Med 06/16/2025 10:18 AM EST - 06/26/2025 6:12 PM EST Hospital Encounter [facility] [address] [place] [address] Melissa Betts MD Shah, Krishna, MD Villaflor, Janjenali, MD Lee, Jae, MD Tuktamyshov, Rasikh, MD Thoracic back pain, unspecified back pain laterality, unspecified chronicity (Primary Dx); Osteomyelitis, unspecified site, unspecified type (HC Code) (HC CODE); Gastrojejunostomy tube status (HC Code) (HC CODE) [Z93.4]; Gastroparesis [K31.84] Discharge Disposition: Home-Health Care c 06/16/2025 Travel 06/16/2025 Scanned Document [facility] SCHEDULING [address] [place] [address] Provider, Historical 06/15/2025 Refill [facility] at 8 [facility] 8 [place], [place] [id number] Petrona Nesbitt PA Medication Refill 06/12/2025 2:30 PM EST Office Visit [facility] [address] [place] [address] HyAminta Macdonald PA Malaise (Primary Dx); Back pain, unspecified back location, unspecified back pain laterality, unspecified chronicity 06/11/2025 Telephone [facility] at [address] [facility] [address] [place] [address] Ebonie Crowley MD Medication Refill 06/08/2025 Transcribed Orders EXTERNAL REFERRAL SOURCE 20 [place] [address] Reji Mi DO Discitis of thoracic region (Primary Dx) 06/08/2025 Refill [facility] at [address] [place] [address], [place] [address] Magda Davis MD Medication Refill 05/28/2025 11:00 AM EDT Telemedicine [facility] at [address] [place] [address], [place] [address] Feeding difficulties (Primary Dx); On total parenteral nutrition (TPN); Gastroparesis; 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 05/18/2025 2:00 PM EDT Office Visit [facility] at [address] [place] [address], [place] [address] Petrona Nesbitt PA Gastrointestinal dysmotility (Primary Dx); Gastroparesis; Gastrojejunostomy tube status (HC Code) (HC CODE); On total parenteral nutrition (TPN); Gastrojejunal (GJ) tube in place (HC Code) (HC CODE); Vomiting, unspecified vomiting type, unspecified whether nausea present; Chronic idiopathic constipation; Dysautonomia (HC Code) (HC CODE); Generalized abdominal pain 05/15/2025 Refill [facility] at [address] [place] [address], [place] [address] Ebonie Crowley MD Medication Refill 05/12/2025 Scanned Document [facility] SCHEDULING 25 [facility], [place] [id number] Provider, Historical 05/05/2025 Orders Only [facility] [address] [facility] [place] [id number] Bal Villavicencio MD Lung nodule (Primary Dx) from Last 3 Months Immunizations Immunization Administration Dates Next Due DT (pediatric) 01/08/2007 HPV9 02/28/2022,08/16/2021,06/10/2021 Influenza, injectable, MDCK, quad, preservative free 06/09/2022,06/20/2019 Influenza, injectable, quad with preservative 07/12/2015,06/16/2011 Influenza, injectable, quadr ivalent, preservative free 08/22/2023,06/09/2022,05/02/2021,04/17,06/20/2019,06/11/2018,05/17/2016 Influenza, seasonal trivalen t, (65Yr+) adjuvanted, preservative free 04/17/2017 Influenza, split virus, triv alent, Preservative Free 07/12/2015 Influenza, trivalent, inject able, contains preservative 04/17/2020,06/20/2019,06/11/2018,04/28,06/06/2012 Influenza, unspecified formulation 05/06/2022 Pneumococcal conjugate 20 va lent (PCV20) 02/29/2024 Pneumococcal polysaccharide PPSV23 05/06/2020 Family History Medical History Relation Name Comments No Known Problems Father Bone cancer Maternal Grandfather No Known Problems Maternal Grandmother No Known Problems Mother No Known Problems Paternal Grandfather No Known Problems Paternal Grandmother No Known Problems Sister Relation Name Status Comments Father Alive Maternal Grandfather Maternal Grandmother Alive Mother Alive Paternal Grandfather Paternal Grandmother Alive Sister Alive Social History Tobacco Use Types Packs/Day Years Used Date Smoking Tobacco: Never Smokeless Tobacco: Never Tobacco Cessation:Counseling Given: Not [...] Answer Date Recorded PHQ-2 Total Score 0 06/16/2025 Hunger Vital Sign Answer Date Recorded Within the past 12 months, y ou worried that your food would run out before you got the money to buy more. Never true 06/16/20 25 Within the past 12 months, t he food you bought just didn't last and you didn't have money to get more. Never true 06/16/2025 PRAPARE - Transportation Answer Date Re corded In the past 12 months, has l ack of transportation kept you from medical appointments or from getting medications? No 06/06 In the past 12 months, has l ack of transportation kept you from meetings, work, or from getting things needed for daily living? No 06/16/2025 [facility] Utilities Answer Date Recorded In the past 12 months has th e electric, gas, oil, or water company threatened to shut off services in your home? No 06/16/2025 Housing Stability Answer Date Recorded What is your living situation today? I have a [facility] home place to live 06/16/2025 Housing Stability Not on file 06/16/2025 Interpersonal Safety Answer Date Record ed Is there anyone in your life that is hurting or threatening you in anyway? no 06/16/2025 Physical Indicators of Abuse No evidence of phys ical abuse 06/16/2025 Sex and Gender Information Value Date Recorded Sex Assigned at Male 06/16/2025 10:30 AM EST Legal Sex Male 8:50 PM EST Gender Identity Male 06/16/2025 10:30 AM EST Sexual Orientation Not on file Last Filed Vital Signs Vital Sign Reading Time Taken Comments Blood Pressure 125/80 06/26/2025 3:48 PM EST Pulse 65 06/26/2025 3:48 PM EST Temperature 36.7 C (98.1 F) 06/26/2025 3:48 PM EST Respiratory Rate 20 06/26/2025 3:48 PM EST Oxygen Saturation 98% 06/26/2025 3:48 PM EST Inhaled Oxygen Concentration - - Weight 99.3 kg (219 lb) 06/16/2025 9:20 PM EST Height 185.4 cm (6' 1 ) 06/16/2025 9:20 PM EST Body Mass Index 28.89 06/16/2025 9:20 PM EST Plan of Treatment Upcoming Encounters Date Type Department Care Team (Late st Contact Info) Description 08/05/2025 1:40 PM EST Appointment YOVANY Gonzalez CT Scan [address] [place] [address]. [place] [address] Bal Villavicencio MD [address] [place] [phone] 08/11/2025 4:00 PM EST Evaluation [facility] 200 [facility] [place] [address] Kerry Kaba MD 200 [facility] [address] [place] [phone] 08/17/2025 1:00 PM EST Office Visit [facility] [address] [place] [address] Petrona Nesbitt PA [address] [place] [phone] 09/04/2025 10:15 AM EST Follow Up [facility] at [address] [place] [address] Carlos Lo MD [address] [place] [phone] 10/20/2025 4:00 PM EDT Telemedicine [facility] [address] [address] Prerna Paulino MD [address] [place] [phone] 10/29/2025 9:00 AM EDT Office Visit [facility] [address] [place] [address] Petrona Nesbitt PA [address] [place] [phone] 12/10/2025 10:00 AM EDT Office Visit [facility] [address] [place] [phone] Petrona Nesbitt PA [address] [place] [phone] 01/21/2026 10:00 AM EDT Office Visit [facility] [address] [place] [phone] Petrona Nesbitt PA [address] [place] [phone] 03/04/2026 10:00 AM EDT Office Visit [facility] [address] [place] [address] Petrona Nesbitt PA [address] [place] [phone] 04/15/2026 10:30 AM EDT Office Visit [facility] at [address] [place] [phone] Ebonie Crowley MD [address] [place] [phone] Health Maintenance Due Date Last Done Comments Tetanus adult (Td q 10,TDAP once) 01/08/2017 01/08/2007 Influenza vaccine 03/06/2025 08/22/2023, , 06/09/2022, Additional history exists Covid-19 vaccine series ( season) 2025 07/04/2024, 02/29/2024, 06/09/2022, Additional history exists Lipid disorder screening 03/11/2030 03/11/2025 HIV screening Completed 03/23/2023 Pneumococcal Vaccine (2 - 49 years) Aged Out 02/29/2024, 05/06/2020 No longer eligibl e based on patient's age to complete this topic Hepatitis C screening Completed 01/15/2025, 025 Meningococcal B Vaccine Aged Out No l onger eligible based on patient's age to complete this topic Meningococcal Vaccine Aged Out No jung jovany eligible based on patient's age to complete this topic Procedures Procedure Name Priority Date/Time Associated Diagnosis Comments LAB SCAN Routine 07/21/2025 1:25 PM EST LAB SCAN Routine 07/18/2025 8:53 AM EST LAB SCAN Routine 07/14/2025 11:21 AM EST LAB SCAN Routine 07/13/2025 9:56 AM EST LAB SCAN Routine 07/06/2025 1:18 PM EST MISCELLANEOUS TEST, NONBLOOD ([facility] LMW YH) Routine 06/29/2025 11:09 AM EST Osteomyelitis of vertebra, site unspecified (HC Code) (HC CODE) COMPREHENSIVE METABOLIC PANEL Routine 06/26/2025 11:51 AM EST FERRITIN Routine 06/26/2025 11:51 AM EST IRON AND TIBC Add-On 06/26/2025 11:51 AM EST IRON, TIBC AND FERRITIN PANEL ( GH LMW Q YH) Add-On 06/26/2025 11:51 AM EST COMPREHENSIVE METABOLIC PANEL Routine 06/26/2025 11:51 AM EST PT/INR AND PTT ( GH L YH) Routine 06/26/2025 11:51 AM EST TRIGLYCERIDES Routine 06/26/2025 11:51 AM EST MAGNESIUM Routine 06/26/2025 11:51 AM EST PHOSPHORUS (BH GH L LMW YH) Routine 06/26/2025 11:51 AM EST PREALBUMIN Routine 06/26/2025 11:51 AM EST CBC WITHOUT DIFFERENTIAL Routine 06/26/2025 11:51 AM EST CALCIUM, IONIZED, WHOLE BLOOD ([facility] LMW YH) Routine 06/26/2025 11:51 AM EST POCT GLUCOSE Routine 06/26/2025 6:56 AM EST POCT GLUCOSE Routine 06/26/2025 12:50 AM EST POCT GLUCOSE Routine 06/25/2025 6:54 PM EST POCT GLUCOSE Routine 06/25/2025 12:34 PM EST POCT GLUCOSE Routine 06/25/2025 12:03 PM EST POCT GLUCOSE Routine 06/25/2025 6:31 AM EST BASIC METABOLIC PANEL Routine 06/25/2025 4:06 AM EST BASIC METABOLIC PANEL Routine 06/25/2025 4:06 AM EST CALCIUM, IONIZED, WHOLE BLOOD ([facility] LMW YH) Timed 06/25/2025 4:06 AM EST PHOSPHORUS ( GH L LMW YH) Routine 06/25/2025 4:06 AM EST MAGNESIUM Routine 06/25/2025 4:06 AM EST POCT GLUCOSE Routine 06/24/2025 11:30 PM EST POCT GLUCOSE Routine 06/24/2025 5:54 PM EST VANCOMYCIN, TROUGH Timed 06/24/2025 5: 10 PM EST BASIC METABOLIC PANEL Routine 06/24/2025 6:33 AM EST BASIC METABOLIC PANEL Routine 06/24/2025 6:33 AM EST QUANTIFERON-TB Early AM 06/24/2025 6:33 AM EST SEDIMENTATION RATE (ESR) Early AM 06/24/2025 6:33 AM EST PHOSPHORUS ([facility] L LMW YH) Routine 06/24/2025 6:33 AM EST MAGNESIUM Routine 06/24/2025 6:33 AM EST POCT GLUCOSE Routine 06/24/2025 12:48 AM EST SPECIMEN TRACKING SHELL TEST ( YH) Routine 06/23/2025 3:00 PM EST Routine general medical examination at a health care facility POCT GLUCOSE Routine 06/23/2025 12:32 PM EST ADVANCED MOLECULAR MICROBIOLOGY APPROVAL ([facility] LMW YH) Urgent 06/23/2025 10:13 AM EST TISSUE CULTURE ([facility] LMW YH) Urgent 06/23/2025 10:13 AM EST FUNGAL CULTURE Urgent 06/23/2025 10:[address] GUIDED NEEDLE BIOPSY SPINE([facility] YH) Routine 06/23/2025 9:42 AM EST SURGICAL CASE (Y) Routine 06/23/2025 9: 39 AM EST BASIC METABOLIC PANEL Routine 06/23/2025 6:54 AM EST TYPE AND RH RECHECK ([facility] LMW YH) Routine 06/23/2025 6:54 AM EST TYPE AND SCREEN ([facility] LMW YH) Early AM 06/23/2025 6:54 AM EST BASIC METABOLIC PANEL Routine 06/23/2025 6:54 AM EST PROTIME AND INR Early AM 06/23/2025 6:54 AM EST C-REACTIVE PROTEIN (CRP) Early AM 06/23/2025 6:54 AM EST PHOSPHORUS ([facility] L LMW YH) Routine 06/23/2025 6:54 AM EST MAGNESIUM Routine 06/23/2025 6:54 AM EST POCT GLUCOSE Routine 06/23/2025 5:30 AM EST POCT GLUCOSE Routine 06/22/2025 11:32 PM EST POCT GLUCOSE Routine 06/22/2025 5:04 PM EST POCT GLUCOSE Routine 06/22/2025 12:45 PM EST POCT GLUCOSE Routine 06/22/2025 8:40 AM EST BASIC METABOLIC PANEL Routine 06/22/2025 6:34 AM EST C-REACTIVE PROTEIN (CRP) Add-On 06/22/2025 6:34 AM EST BASIC METABOLIC PANEL Routine 06/22/2025 6:34 AM EST PHOSPHORUS ([facility] L LMW YH) Routine 06/22/2025 6:34 AM EST MAGNESIUM Routine 06/22/2025 6:34 AM EST POCT GLUCOSE Routine 06/22/2025 5:51 AM EST POCT GLUCOSE Routine 06/21/2025 11:48 PM EST POCT GLUCOSE Routine 06/21/2025 5:37 PM EST POCT GLUCOSE Routine 06/21/2025 12:50 PM EST POCT GLUCOSE Routine 06/21/2025 6:28 AM EST BASIC METABOLIC PANEL Routine 06/21/2025 6:21 AM EST BASIC METABOLIC PANEL Routine 06/21/2025 6:21 AM EST PHOSPHORUS (BH GH L LMW YH) Routine 06/21/2025 6:21 AM EST MAGNESIUM Routine 06/21/2025 6:21 AM EST POCT GLUCOSE Routine 06/20/2025 8:41 PM EST POCT GLUCOSE Routine 06/20/2025 7:57 PM EST POCT GLUCOSE Routine 06/20/2025 7:33 PM EST POCT GLUCOSE Routine 06/20/2025 12:28 PM EST POCT GLUCOSE Routine 06/20/2025 8:31 AM EST BASIC METABOLIC PANEL Routine 06/20/2025 6:34 AM EST CBC AND DIFFERENTIAL STAT 06/20/2025 6:34 AM EST COMPREHENSIVE METABOLIC PANEL STAT 06/20/2025 6:34 AM EST BASIC METABOLIC PANEL Routine 06/20/2025 6:34 AM EST TRIGLYCERIDES Routine 06/20/2025 6:34 AM EST CBC WITH AUTO DIFFERENTIAL STAT 06/20/2025 6:34 AM EST COMPREHENSIVE METABOLIC PANEL STAT 06/20/2025 6:34 AM EST PARTIAL THROMBOPLASTIN TIME ([facility] LMW Q YH) Timed 06/20/2025 6:34 AM EST PROTIME AND INR Urgent 06/20/2025 6:34 AM EST C-REACTIVE PROTEIN (CRP) Urgent 06/20/2025 6:34 AM EST PREALBUMIN Urgent 06/20/2025 6:34 AM EST PHOSPHORUS (BH GH L LMW YH) Urgent 06/20/2025 6:34 AM EST MAGNESIUM Urgent 06/20/2025 6:34 AM EST CALCIUM, IONIZED, WHOLE BLOOD ([facility] LMW YH) Urgent 06/20/2025 6:34 AM EST POCT GLUCOSE Routine 06/19/2025 5:52 PM EST POCT GLUCOSE Routine 06/19/2025 12:31 PM EST POCT GLUCOSE Routine 06/19/2025 8:48 AM EST CBC AND DIFFERENTIAL Routine 06/19/2025 8:20 AM EST BASIC METABOLIC PANEL Urgent 06/19/2025 8:20 AM EST TRIGLYCERIDES Add-On 06/19/2025 8:20 AM EST CBC WITH AUTO DIFFERENTIAL Routine 06/19/2025 8:20 AM EST BASIC METABOLIC PANEL Urgent 06/19/2025 8:20 AM EST POCT GLUCOSE Routine 06/19/2025 5:22 AM EST POCT GLUCOSE Routine 06/18/2025 11:52 PM EST POCT GLUCOSE Routine 06/18/2025 6:06 PM EST POCT GLUCOSE Routine 06/18/2025 12:41 PM EST POCT GLUCOSE Routine 06/18/2025 8:28 AM EST POCT GLUCOSE Routine 06/18/2025 5:35 AM EST BASIC METABOLIC PANEL Early AM 06/18/2025 5:31 AM EST BASIC METABOLIC PANEL Early AM 06/18/2025 5:31 AM EST CBC WITHOUT DIFFERENTIAL Early AM 06/18/2025 5:31 AM EST POCT GLUCOSE Routine 06/18/2025 12:01 AM EST POCT GLUCOSE Routine 06/17/2025 7:20 PM EST POCT GLUCOSE Routine 06/17/2025 12:38 PM EST MRSA SCREEN BY PCR Urgent 06/17/2025 11 :16 AM EST POCT GLUCOSE Routine 06/17/2025 8:16 AM EST CBC AND DIFFERENTIAL Routine 06/17/2025 5:49 AM EST BASIC METABOLIC PANEL Routine 06/17/2025 5:49 AM EST CBC WITH AUTO DIFFERENTIAL Routine 06/17/2025 5:49 AM EST BASIC METABOLIC PANEL Routine 06/17/2025 5:49 AM EST TRIGLYCERIDES Routine 06/17/2025 5:49 AM EST PHOSPHORUS ( GH L LMW YH) Routine 06/17/2025 5:49 AM EST MAGNESIUM Routine 06/17/2025 5:49 AM EST MRI TOTAL SPINE W WO IV CONTRAST(BH YH GH YHC) Within 4 hours (Urgent) 06/17/2025 4:49 AM EST POCT GLUCOSE Routine 06/17/2025 12:17 AM EST EXTRA BLUE TOP SPECIMEN ([facility]) Add-On 06/16/2025 9:09 PM EST PARTIAL THROMBOPLASTIN TIME ([facility] LMW Q YH) Urgent 06/16/2025 8:31 PM EST PROTIME AND INR Urgent 06/16/2025 8:31 PM EST COMPREHENSIVE METABOLIC PANEL Timed 06/16/2025 5:37 PM EST COMPREHENSIVE METABOLIC PANEL Timed 06/16/2025 5:37 PM EST PREALBUMIN Urgent 06/16/2025 5:37 PM EST CALCIUM, IONIZED, WHOLE BLOOD ([facility] LMW YH) Urgent 06/16/2025 5:[address] 2D RECONSTRUCTION THORACIC SPINE (Y[facility] LM WH) Within 4 hours (Urgent) 06/16/2025 5:35 PM EST CTA CHEST (PE) W IV CONTRAST Within 1 hour (STAT) 06/16/2025 5:[address] LUMBAR SPINE WO IV CONTRAST Within 4 hours (Urgent) 06/16/2025 5:[address] CERVICAL SPINE WO IV CONTRAST Within 4 hours (Urgent) 06/16/2025 5:22 PM EST XR FEMUR RIGHT AP AND LATERAL Within 1 hour (STAT) 06/16/2025 3:29 PM EST PARTIAL THROMBOPLASTIN TIME ([facility] LMW Q YH) Routine 06/16/2025 2:44 PM EST PROTIME AND INR STAT 06/16/2025 2:44 PM EST EKG STAT 06/16/2025 12:31 PM EST LACTIC ACID, PLASMA (REFLEX 2H REPEAT) STAT 06/16/2025 11:09 AM EST BLOOD CULTURE STAT 06/16/2025 10:59 AM EST BLOOD CULTURE STAT 06/16/2025 10:59 AM EST BLOOD CULTURE - NEW CONCERN (2 BOTTLES) (BH GH L LMW YH) STAT 06/16/2025 10:59 AM EST BLOOD CULTURE - NEW CONCERN (2 BOTTLES) (BH GH L LMW YH) STAT 06/16/2025 10:59 AM EST CBC AND DIFFERENTIAL STAT 06/16/2025 10:58 AM EST BASIC METABOLIC PANEL STAT 06/16/2025 10:58 AM EST TRIGLYCERIDES Add-On 06/16/2025 10:58 AM EST PHOSPHORUS (BH GH L LMW YH) Add-On 06/16/2025 10:58 AM EST MAGNESIUM Add-On 06/16/2025 10:58 AM EST PROCALCITONIN (BH GH LMW Q YH) Add-On 06/16/2025 10:58 AM EST PROTIME AND INR STAT 06/16/2025 10:58 AM EST SEDIMENTATION RATE (ESR) Timed 06/16/2025 10:58 AM EST CBC WITH AUTO DIFFERENTIAL STAT 06/16/2025 10:58 AM EST BASIC METABOLIC PANEL STAT 06/16/2025 10:58 AM EST C-REACTIVE PROTEIN (CRP) Timed 06/16/2025 10:58 AM EST LAB SCAN Routine 06/11/2025 10:25 AM EST LAB SCAN Routine 05/08/2025 12:29 PM EDT LIPID PANEL Routine 03/11/2025 11:05 AM EDT On total parenteral nutrition (TPN) Gastroparesis Gastrojejunal (GJ) tube in place (HC Code) HIV-1/HIV-2 ANTIBODY/ANTIGEN SCREEN W/REFLEX ([facility]) Routine 03/23/2023 10:56 AM EDT from Last 3 Months or Most Recently Relevant to Health Maintenance Results * Lab Scan (07/21/2025 1:25 PM EST) Only the most recent of7 resultswithin the time period is included. Ebonie Crowley MD LAB BLOOD ORDERABLES Final Resul t * Miscellaneous test, non blood ([facility]) (06/29/2025 11:09 AM EST) Test Code [id number] 07/06/2025 2:44 PM EST [facility] DEPARTMENT OF LABORATORY MEDICINE Test Name Broad Range Bacteria PCR & NGS 07/06/2025 2:44 PM EST [facility]PART[facility] OF [facility]ORATORY MEDICINE Specimen Type Tissue - Vetebra Bone 07/06/2025 2:44 PM EST [facility] DEPARTMENT OF LABORATORY MEDICINE Specimen Source Vetebrae 2:44 PM [facility] DEPARTMENT OF LABORATORY MEDICINE Department Performed In [facility] 07/06/2025 2:44 PM [facility] DEPARTMENT OF LABORATORY MEDICINE Miscellaneous Test Results See Attached Report 07/06/2025 2:44 PM EST [facility] DEPARTMENT OF LABORATORY MEDICINE Vertebrae - Specify 06/29/2025 11:09 AM EST 06/29/2025 11:11 AM EST Kerry Kaba MD BODY FLUIDS AND STOOLS ORDERA BLES Final Result [facility] DEPARTMENT OF LABORATORY MEDICINE [address] [place] [address] * Comprehensive metabolic panel (06/26/2025 11:51 AM EST) Only the most recent of3 resultswithin the time period is included. Sodium 139 136 - 144 mmol/L 06/26/2025 12:32 PM [facility] Potassium 4.6 3.3 - 5.3 mmol/L 06/26/2025 12:32 PM [facility] Chloride 103 98 - 107 mmol/L 06/26/2025 12:32 PM [facility] CO2 25 20 - 30 mmol/L 06/26/2025 12:32 PM [facility] Anion Gap 11 7 - 17 06/26/2025 12:32 PM [facility] Glucose 98 70 - 100 mg/dL 06/26/2025 12:32 PM [facility] BUN 18 6 - 20 mg/dL 06/26/2025 12:32 PM [facility] Creatinine 0.90 0.40 - 1.30 mg/dL 06/26/2025 12:32 PM [facility] Calcium 10.1 8.8 - 10.2 mg/dL 06/26/2025 12:32 PM [facility] BUN/Creatinine Ratio 20.0 8.0 - 23.0 06/26/2025 12:32 PM [facility] Total Protein 8.0 5.9 - 8.3 g/dL 025 12:32 PM [facility] Albumin 4.8 3.6 - 5.1 g/dL 06/26/2025 12:32 PM [facility] Total Bilirubin 0.5 <=1.2 mg/dL 06/26/20 12:32 PM [facility] Alkaline Phosphatase 65 9 - 122 U/L 06/26/2025 12:32 PM [facility] Alanine Aminotransferase (ALT) 14 9 - 59 U/L 06/26/2025 12:32 PM [facility] Comment:Calcium dobesilate c an cause artificially low ALT results at therapeutic concentrations Aspartate Aminotransferase (AST) 18 10 - 35 U/L 06/26/2025 12:32 PM [facility] Globulin 3.2 2.0 - 3.9 g/dL 06/26/2025 12:32 PM [facility] A/G Ratio 1.5 1.0 - 2.2 06/26/2025 12:32 PM [facility] AST/ALT Ratio 1.3 Reference Range Not Established 06/26/2025 12:32 PM [facility] eGFR (Creatinine) >60 >=60 mL/min/1.73m2 06/26/2025 12:32 PM [facility] Comment: [facility] utilizes CKD-EPI Creatinine 2020 to report eGFR. Values < 60 mL/min/1.73 m2 may indicate CKD if present for more than three months AND creatinine is at steady state. The eGFR provides a rough estimate of kidney function. For further guidance, please refer to the CKD: Adult Party Plan Selling Distributor Signature pathway. Creatinine Delta -0.1 See Comment 025 12:32 PM [facility] Comment: Delta creatinine is the difference between the current creatinine and the most recent prior creatinine (if available within the previous 12 months). It is intended to detect significant changes in kidney function for patients whose creatinine is <5 mg/dL. A delta is not calculated for patients whose baseline creatinine is >=5 mg/dL or those who do not have a baseline within the last year. The following deltas will flag as critical (triggering a call from the laboratory): a) Deltas >= +1.5 mg/dL for patients with baseline creatinine <= 1.5 mg/dL. b) Deltas >= +3 mg/dL for patients with baseline creatinine between 1.5 and 5 mg/dL. Blood Venipuncture / Unknown 06/26/2025 11:51 AM EST 06/26/2025 11:59 AM EST us Yasmine Duran TAXONOMY TEACHER LAB BLOOD ORDERABLES Final Result [facility] [address] [place] [address] * (ABNORMAL) CBC without differential (06/26/2025 11:51 AM EST) Only the most recent of2 resultswithin the time period is included. WBC 7.1 4.0 - 11.0 x1000/ L 06/26/2025 12:09 PM EST [facility] RBC 5.56 4.00 - 6.00 M/ L 06/26/2025 12:09 PM [facility] Hemoglobin 13.4 13.2 - 17.1 g/dL 06/26/2025 12:09 PM [facility] Hematocrit 42.80 38.50 - 50.00 % 06/26/2025 12:09 PM [facility] MCV 77.0(L) 80.0 - 100.0 fL 06/26/2025 12:09 PM [facility] MCH 24.1(L) 27.0 - 33.0 pg 06/26/2025 12:09 PM [facility] MCHC 31.3 31.0 - 36.0 g/dL 06/26/2025 12:09 PM [facility] RDW-CV 17.1(H) 11.0 - 15.0 % 06/26/2025 12:09 PM [facility] Platelets 309 150 - 420 x1000/ L 06/26/2025 12:09 PM [facility] MPV 8.7 8.0 - 12.0 fL 06/26/2025 12:09 PM [facility] ANC (Abs Neutrophil Count) 4.30 2.00 - 7.60 x 1000/ L 06/26/2025 12:09 PM [facility] Blood Venipuncture / Unknown 06/26/2025 11:51 AM EST 06/26/2025 11:59 AM EST us Yasmine Duran TAXONOMY TEACHER LAB BLOOD ORDERABLES Final Result Performing Organization Address City/[facility]/ZIP Co de Phone Number [facility] [address] [place] [address] * PT/INR and PTT (06/26/2025 11:51 AM EST) Prothrombin Time 11.1 9.0 - 12.0 seconds 06/26/2025 12:17 PM EST [facility] INR 1.05 0.90 - 1.10 06/26/2025 12:17 PM EST [facility] Comment: Monitor Coumadin with INR ONLY, not PT. THERAPEUTIC RANGE: 2.0-3.0 PTT 29.8 23.0 - 31.0 seconds 06/26/2025 12:17 PM EST [facility] Comment:THERAPEUTIC RANGE: 3 5-75 seconds Blood Venipuncture / Unknown 06/26/2025 11:51 AM EST 06/26/2025 11:59 AM EST Narrative [facility] - 06/26/2025 12:17 PM EST Effective 04/09/2025. New Normal Reference Intervals are in place at all [facility] Labs. Yasmine Duran TAXONOMY TEACHER LAB BLOOD ORDERABLES Final Result Performing Organization Address [facility]/ZIP Co de Phone Number [facility] [address] [place] [address] * (ABNORMAL) Calcium, ionized, whole blood (06/26/2025 11:51 AM EST) Only the most recent of4 resultswithin the time period is included. Calcium, Ionized, Whole Blood 5.23(H) 4.60 - 5.08 mg/dL 06/26/2025 12:03 PM EST [facility] Blood Venipuncture / Unknown 06/26/2025 11:51 AM EST 06/26/2025 11:59 AM EST us Yasmine Duran APRN LAB BLOOD ORDERABLES Final Result Performing Organization Address [facility]/ZIP Co de Phone Number [address] [phone] * Iron and TIBC (06/26/2025 11:51 AM EST) Iron 103 59 - 158 ug/dL 06/26/2025 5:38 PM EST [facility] Comment:In the presence of h igh ferritin concentrations >1200 ng/mL, the assumption that serum iron is almost completely bound to transferrin is no longer valid. Therefore, such iron results should not be used to calculate Total Iron Binding Capacity (TIBC) or percent transferrin saturation (%SAT). Iron Saturation 32 15 - 50 % 5:38 PM EST [facility] TIBC 322 250 - 450 ug/dL 06/26/2025 5:38 PM EST [facility] Blood Venipuncture / Unknown 06/26/2025 11:51 AM EST 06/26/2025 11:59 AM EST Yasmine Duran APRN LAB BLOOD ORDERABLES Final Result Performing Organization Address [facility] Co de Phone Number [address] [phone] * Triglycerides (06/26/2025 11:51 AM EST) Only the most recent of5 resultswithin the time period is included. Triglycerides 132 See Comment mg/dL 06/26/2025 12:32 PM EST [facility] Comment: Triglycerides (mg/dL) Adults (>18 years) Children (<18 years) Desirable <150 Not Established Borderline-High 150-199 Not Established High 200-499 Not Established Blood Venipuncture / Unknown 06/26/2025 11:51 AM EST 06/26/2025 11:59 AM EST Yasmine Mary ReeceBrandywine TAXONOMY TEACHER LAB BLOOD ORDERABLES Final Result Performing Organization Address City/[facility] de Phone Number [address] [phone] * Prealbumin (06/26/2025 11:51 AM EST) Only the most recent of3 resultswithin the time period is included. Prealbumin 28.0 20.0 - 40.0 mg/dL 06/26/2025 12:29 PM EST [facility] Blood Venipuncture / Unknown 06/26/2025 11:51 AM EST 06/26/2025 11:59 AM EST Yasmine Stanfordr TAXONOMY TEACHER LAB BLOOD ORDERABLES Final Result Performing Organization Address [facility] de Phone Number [address] [phone] * Phosphorus (06/26/2025 11:51 AM EST) Only the most recent of9 resultswithin the time period is included. Phosphorus 3.1 2.2 - 4.5 mg/dL 06/26/2025 12:32 PM EST [facility] Blood Venipuncture / Unknown 06/26/2025 11:51 AM EST 06/26/2025 11:59 AM EST Yasmine ReeceMiladys TAXONOMY TEACHER LAB BLOOD ORDERABLES Final Result Performing Organization Address City/[facility] de Phone Number [facility] [address] [place] [address] * Magnesium (06/26/2025 11:51 AM EST) Only the most recent of9 resultswithin the time period is included. Pathologist [facility] Magnesium 2.1 1.7 - 2.4 mg/dL 06/26/2025 12:32 PM EST [facility] Blood Venipuncture / Unknown 06/26/2025 11:51 AM EST 06/26/2025 11:59 AM EST Yasmine Duran APRN LAB BLOOD ORDERABLES Final Result [facility] [address] [place] [address] * Ferritin (06/26/2025 11:51 AM EST) [facility] Ferritin 179 30 - 400 ng/mL 06/26/2025 5:38 PM EST [facility] Blood Venipuncture / Unknown 06/26/2025 11:51 AM EST 06/26/2025 11:59 AM EST Yasmine Duran APRN LAB BLOOD ORDERABLES Final Result [address] [phone] * (ABNORMAL) Automated POC Glucose (Fingerstick) (06/26/2025 6:56 AM EST) Only the most recent of39 resultswithin the time period is included. [facility] Glucose, Meter 104(H) 70 - 100 mg/dL 06/26/2025 6:56 AM EST [facility] Blood 06/26/2025 6:56 AM EST 06/26/2025 6:57 AM EST Torey Guevara MD POINT OF CARE TEST ORDERABLES Fi nal Result [facility] [address] [place] [address], [facility] [phone] * Basic metabolic panel (06/25/2025 4:06 AM EST) Only the most recent of10 resultswithin the time period is included. Sodium 141 136 - 144 mmol/L 06/25/2025 4:54 AM EST [facility] Potassium 4.1 3.3 - 5.3 mmol/L 06/25/2025 4:54 AM EST [facility] Chloride 106 98 - 107 mmol/L 06/25/2025 4:54 AM EST [facility] CO2 28 20 - 30 mmol/L 06/25/2025 4:54 AM EST [facility] Anion Gap 7 7 - 17 06/25/2025 4:54 AM EST [facility] Glucose 90 70 - 100 mg/dL 06/25/2025 4:54 AM EST [facility] BUN 16 6 - 20 mg/dL 06/25/2025 4:54 AM [facility] Creatinine 1.00 0.40 - 1.30 mg/dL 06/25/2025 4:54 AM [facility] Calcium 9.0 8.8 - 10.2 mg/dL 06/25/2025 4:54 AM EST [facility] BUN/Creatinine Ratio 16.0 8.0 - 23.0 06/25/2025 4:54 AM EST [facility] eGFR (Creatinine) >60 >=60 mL/min/1.73m 2 06/25/2025 4:54 AM EST [facility] Comment: [facility] utilizes CKD-EPI Creatinine 2020 to report eGFR. Values < 60 mL/min/1.73 m2 may indicate CKD if present for more than three months AND creatinine is at steady state. The eGFR provides a rough estimate of kidney function. For further guidance, please refer to the CKD: Adult Party Plan Selling Distributor Signature pathway. Creatinine Delta 0 See Comment 025 4:54 AM EST [facility] Comment: Delta creatinine is the difference between the current creatinine and the most recent prior creatinine (if available within the previous 12 months). It is intended to detect significant changes in kidney function for patients whose creatinine is <5 mg/dL. A delta is not calculated for patients whose baseline creatinine is >=5 mg/dL or those who do not have a baseline within the last year. The following deltas will flag as critical (triggering a call from the laboratory): a) Deltas >= +1.5 mg/dL for patients with baseline creatinine <= 1.5 mg/dL. b) Deltas >= +3 mg/dL for patients with baseline creatinine between 1.5 and 5 mg/dL. Blood VASCULAR CATHETER / Unknown Tunneled central venous infusion catheter / Unknown 06/25/2025 4:06 AM EST 06/25/2025 4:13 AM EST Mattie Dave MD LAB BLOOD ORDERABLES Final Resul t [facility] [address] [place] [address] * (ABNORMAL) Vancomycin, trough (06/24/2025 5:10 PM EST) Vancomycin Trough 9.7(L) 10.0 - 15.0 ug/mL 06/24/2025 5:44 PM EST [facility] Blood VASCULAR CATHETER / Unknown Port / Unknown 06/24/2025 5:10 PM EST 06/24/2025 5:19 PM EST James Leggett MD LAB BLOOD ORDERABLES Final Result [facility] [address] [place] [address] * (ABNORMAL) Sedimentation rate (ESR) (06/24/2025 6:33 AM EST) Only the most recent of2 resultswithin the time period is included. Sedimentation Rate (ESR) 48(H) 0 - 20 mm/hr 06/24/2025 10:38 AM EST [facility] MEDICINE Blood Port / Unknown 06/24/2025 6: 33 AM EST 06/24/2025 6:51 AM EST Yasmine Duran APRN LAB BLOOD ORDERABLES Final Result [facility] DEPARTMENT OF LABORATORY MEDICINE [address] [place] [address], [facility] [phone] * QuantiFERON-TB (06/24/2025 6:33 AM EST) QuantiFERON-TB Gold In-Tube Negative Negative 06/25/2025 7:25 PM EST [facility] Comment: Diagnoses of M. tuberculosis infection and decisions about medical or public health management should not be based on IGRA or TST results alone, but should include consideration of epidemiologic and medical history as well as other clinical information. This is a qualitative test. The TB antigen IU/mL value is required for documentation on certain government reporting forms (e.g., Form I-693), but this value should not be used to monitor disease progression or response to therapy. An overall Negative result does not completely rule out TB infection. An overall Positive result does not differentiate active from latent tuberculosis. As of February 19, 2018, this test is being performed using the QuantiFERON TB Gold Plus assay from [employer] which includes the detection of response to CD8+ T cells and as of October 04, 2020, it is being performed on an automated platform developed by [employer] in partnership with [employer]. QuantiFERON-TB1 minus NIL 0.02 <0.35 IU/mL 06/25/2025 7:25 PM EST [facility]IC[facility] QuantiFERON-TB2 minus NIL 0.01 <0.35 IU/mL 06/25/2025 7:25 PM EST [facility] MEDICINE QuantiFERON-TB Mitogen minus NIL 9.98 IU/mL 06/25/2025 7:25 PM EST [facility]IC[facility] QuantiFERON NIL 0.02 IU/mL 7:25 PM EST [facility]IC[facility] Blood Port / Unknown 06/24/2025 6: 33 AM EST 06/24/2025 6:51 AM EST us Herber Grijalva MD LAB BLOOD ORDERABLES Final Result Performing Organization Address [facility]/ZIP Co de Phone Number [facility] MEDICINE [address] [place] [address] * Specimen Tracking Shell Test ([facility]) (06/23/2025 3:00 PM EST) Other Collection / Unknown 06/23/2025 3:00 PM EST 06/23/2025 3:00 PM EST us No Fax Lab Provider LAB BLOOD ORDERABLES - NEVER SEND STATUS Final Result Performing Organization Address [facility] Co de Phone Number [facility]IC[facility] [address] [place] [address] * Advanced molecular microbiology approval (06/23/2025 10:13 AM EST) [facility] Molecular Microbiology Order Review Approved for broad range 16S rRNA sequencing at [facility]. 06/29/2025 11:13 AM EST [facility]IC[facility] Electronic Signature This report is electronically signed by Hussain Greenberg MD on 06/29/25 at 9:35 AM. See culture #[id number] for Broad range 16S rRNA sequencing results 06/29/2025 11:13 AM EST [facility] MEDICINE Bone BONE STRUCTURE OF VERTEBRA / Unknown Collection / Unknown 06/23/2025 10:13 AM EST 06/23/2025 12:05 PM EST us Kerry Kaba MD MICROBIOLOGY - GENERAL ORDERA BLES Final Result Performing Organization Address City/[facility]/ZIP Co de Phone Number [facility] MEDICINE [address] [place] [address] * Tissue culture (06/23/2025 10:13 AM EST) Tissue Culture No Growth 06/28/2025 10:31 PM EST [facility] Gram Stain No WBC's 06/28/2025 10:31 PM EST [facility] MEDIC[facility] Gram Stain No organisms seen 06/28/2025 10:31 PM EST [facility] MEDICINE Bone BONE STRUCTURE OF VERTEBRA / Unknown Collection / Unknown 06/23/2025 10:13 AM EST 06/23/2025 12:05 PM EST Narrative [facility] MEDICINE - 06/28/2025 10:31 PM EST Tissue cultures are always evaluated for the presence of Pseudomonas aeruginosa, Beta hemolytic streptococci, Staphylococcus aureus and Bacteroides fragilis. These organisms are reported when found. Culture, organism identification, and/or susceptibility results may have been generated with a non-FDA approved method. All methods used in this report have been validated by [facility] Microbiology for clinical use. James Leggett MD MICROBIOLOGY - GENERAL ORD ERABLES Final Result [facility]PARTMENT OF [facility]ATORY MEDICINE [address] [place] [address], [facility] [phone] * Fungal culture (06/23/2025 10:13 AM EST) Fungal Culture No Growth After 4 Weeks of Incubation DEWAYNE SUSCEPTIBILITY 07/23/2025 1:02 PM EST [facility] MEDICINE Bone BONE STRUCTURE OF VERTEBRA / Unknown Collection / Unknown 06/23/2025 10:13 AM EST 06/23/2025 12:05 PM EST Narrative [facility]ORY MEDICINE - 07/23/2025 1:02 PM EST Fungal cultures are held for 4 weeks and reviewed regularly. If growth is observed, results will be updated. The use of the direct fungal stain has limitations based on the specimen source and collection method. As per Clinical Laboratory Standards [place] (CLSI) M54 recommendations, samples collected on swabs are deemed unacceptable for fungal stains with the exception of vaginal submissions. For specimens where a fungal stain has not been performed please refer to direct gram stain result. us James Leggett MD MICROBIOLOGY - GENERAL ORD ERABLES Final Result [facility]ORY MEDICINE [address] [place] [address] * CT Guided Needle Biopsy Spine (06/23/2025 9:42 AM EST) Anatomical Region Laterality Modality Spine, Ortho Spine Computed Luis graphy 06/23/2025 11:2 9 AM EST Impressions 06/23/2025 12:[address]-guided percutaneous T3 vertebral body biopsy without periprocedural complication. Report initiated by: Mackenzie Finch MD Reported and signed by: Elana Enciso MD [facility] Narrative 06/23/2025 12:[address]-GUIDED SPINE BIOPSY INDICATION: Rule out discitis/osteomyelitis. CONSENT: Informed consent was obtained from the patient. Risks including but not limited to bleeding, infection, accidental injury of other body parts were discussed. OPERATORS: Dr. Lenin Enciso (attending neuroradiologist) and Dr. Mackenzie Finch (neuroradiology fellow) with assistance by Jey Sagastume RA. Dr. Enciso was present throughout the procedure. TECHNIQUE AND FINDINGS: The patient was brought to the CT scanner suite, placed in the prone position, and a timeout was performed. Preliminary CT scan was then performed with a radiopaque grid in place at the T2-T3 level. A safe left T3 transpedicular needle entry pathway was selected, and the overlying skin was marked. The area was then prepped and draped in standard sterile fashion. 1% lidocaine was utilized for local anesthesia. A 11-gauge Arrow Oncontrol introducer was advanced via a left transpedicular approach under intermittent CT guidance. The stylette was removed and a 13-gauge biopsy needle was advanced into the introducer and used to obtain one core biopsy specimen(s) of the T3 vertebral body. The specimen(s) were placed in sterile saline, and later submitted for laboratory analysis. The needle was removed, hemostasis was achieved, and a sterile dressing was applied. The patient tolerated the procedure well without any complication and was transferred to recovery area in stable condition. SEDATION: Moderate sedation was achieved with midazolam and and fentanyl. Hemodynamic and respiratory monitoring were performed by nursing per protocol under physician supervision throughout the case. At the conclusion of the case, the patient was monitored until mentation, hemodynamic and respiratory status returned to baseline. A total of 2.5 mg of midazolam and 125 mcg of fentanyl were administered. Local anesthesia was achieved with 1% Lidocaine. Sedation Start Time: 8:35 AM Sedation End Time: 8:57 AM Procedure Note Elana Enciso MD - 06/23/2025 CT-GUIDED SPINE BIOPSY INDICATION: Rule out discitis/osteomyelitis. CONSENT: Informed consent was obtained from the patient. Risks includingbut not limited to bleeding, infection, accidental injury of other bodyparts were discussed. OPERATORS: Dr. Lenin Enciso (attending neuroradiologist) and Dr.Namita Finch (neuroradiology fellow) with assistance by Jey Sagastume RA. Dr. Enciso was present throughout the procedure. TECHNIQUE AND FINDINGS: The patient was brought to the CT scanner suite, placed in the proneposition, and a timeout was performed. Preliminary CT scan was thenperformed with a radiopaque grid in place at the T2-T3 level. A safe leftT3 transpedicular needle entry pathway was selected, and the overlyingskin was marked. The area was then prepped and draped in standard sterilefashion. 1% lidocaine was utilized for local anesthesia. A 11- gauge ArrowOncontrol introducer was advanced via a left transpedicular approachunder intermittent CT guidance. The stylette was removed and a 13-gaugebiopsy needle was advanced into the introducer and used to obtain one corebiopsy specimen(s) of the T3 vertebral body. The specimen(s) were placedin sterile saline, and later submitted for laboratory analysis. The needlewas removed, hemostasis was achieved, and a sterile dressing was applied.The patient tolerated the procedure well without any complication and wastransferred to recovery area in stable condition. SEDATION: Moderate sedation was achieved with midazolam and and fentanyl.Hemodynamic and respiratory monitoring were performed by nursing perprotocol under physician supervision throughout the case. At theconclusion of the case, the patient was monitored until mentation,hemodynamic and respiratory status returned to baseline. A total of 2.5 mgof midazolam and 125 mcg of fentanyl were administered. Local anesthesia was achieved with 1% Lidocaine. Sedation Start Time: 8:35 AM Sedation End Time: 8:57 AM IMPRESSION: CT-guided percutaneous T3 vertebral body biopsy without periproceduralcomplication. Report initiated by: Mackenzie Finch MD Reported and signed by: Elana Enciso MD [facility] Torey Guevara MD IMG CT ORDERABLES Final Result * Surgical case () (06/23/2025 9:39 AM EST) Surgical Case SURGICAL PATHOLOGY REPORT Patient: PEGGY GONG MR #: [id number] Submitted by: TOREY GUEVARA FINAL DIAGNOSIS BONE, T3 VERTEBRA, BIOPSY: - VIABLE BONE WITH SCANT MARROW ELEMENTS - NEGATIVE FOR ACUTE OSTEOMYELITIS Pathologist: Seema Rashid M.D. 07/07/2025 13:24 * Report Electronically Signed Out * This electronic signature indicates that the pathologist has personally reviewed the available gross and/or microscopic material as well as reviewed and edited the final report. Specimen(s) Received: T3 VERTEBRA FROM MICRO Clinical History and Impression: T2-T3 osteomyelitis Gross Description: ( ; Yasmine Churchill) Received fresh from microbiology, transferred to formalin, labeled the patient's name and bone vertebra is a 0.8 x 0.2 cm christopher-white firm cylindrical tissue which is filtered into a mesh bag and entirely submitted in 1 cassette following decalcification with Immunocal. [facility] 06/23/2025 9:39 AM EST Comment:T3 VERTEBRA FROM [facility] RO Torey Guevara MD PATHOLOGY/CYTOLOGY ORDERABLES Fi nal Result [facility] Department of Pathology [address] [place] [address] [phone] [place] [id number] * Type and Rh recheck ([facility] LM[facility] Y) (06/23/2025 6:54 AM EST) ABORH Recheck Interpretation O POS 06/23/2025 8:13 AM EST [facility] Blood VASCULAR CATHETER / Unknown Port / Unknown 06/23/2025 6:54 AM EST 06/23/2025 7:20 AM EST Yasmine Duran APRN BLOOD BANK TEST ORDE RABLES Final Result Performing Organization Address [facility] Co de Phone Number [facility] [address] [place] [address] * Protime and INR (06/23/2025 6:54 AM EST) Only the most recent of5 resultswithin the time period is included. Prothrombin Time 11.1 9.0 - 12.0 seconds 06/23/2025 8:02 AM EST [facility] INR 1.05 0.90 - 1.10 06/23/2025 8:02 AM EST [facility] Comment: Monitor Coumadin with INR ONLY, not PT. THERAPEUTIC RANGE: 2.0-3.0 Blood VASCULAR CATHETER / Unknown Port / Unknown 06/23/2025 6:54 AM EST 06/23/2025 7:20 AM EST Narrative [facility] - 06/23/2025 8:02 AM EST Effective 04/09/2025. New Normal Reference Intervals are in place at all [facility]. Yasmine Duran APRN LAB BLOOD ORDERABLES Final Result Performing Organization Address City/[facility]/ZIP Co de Phone Number [facility] [address] [place] [address] * Type and screen (06/23/2025 6:54 AM EST) ABO Grouping O 06/23/2025 8:13 AM EST [facility] Rh Type POS 06/23/2025 8:13 AM EST [facility] Antibody Screen NEG 8:13 AM EST [facility] Specimen Expiration Date And Time 06/26/2025 23:59 06/23/2025 8:13 AM EST [facility] Blood VASCULAR CATHETER / Unknown Port / Unknown 06/23/2025 6:54 AM EST 06/23/2025 7:20 AM EST Yasmine Duran APRN BLOOD BANK TEST ORDE RABLES Final Result Performing Organization Address City/[facility] de Phone Number [facility] [address] [place] [address] * (ABNORMAL) C-reactive protein (CRP) (06/23/2025 6:54 AM EST) Only the most recent of4 resultswithin the time period is included. [facility] CRP, High Sensitivity 13.2(H) See comment mg/L 06/23/2025 8:33 AM EST [facility] Comment: hs-CRP Risk According to AHA/CDC Guidelines (mg/L): <1.0 Lower relative cardiovascular risk. 1.0-3.0 Average relative cardiovascular risk. 3.1-10.0 Higher relative cardiovascular risk. Consider retesting in 1 to 2 weeks to exclude a benign transient elevation in the baseline CRP value secondary to infection or inflammation. >10.0 Persistent elevation, upon retesting, may be associated with infection and inflammation. Blood VASCULAR CATHETER / Unknown Port / Unknown 06/23/2025 6:54 AM EST 06/23/2025 7:20 AM EST Yasmine Duran APRN LAB BLOOD ORDERABLES Final Result Performing Organization Address City/[facility]/ZIP Co de Phone Number [facility] [address] [place] [address], [facility] [phone] * Partial thromboplastin time (06/20/2025 6:34 AM EST) Only the most recent of3 resultswithin the time period is included. [facility] PTT 24.9 23.0 - 31.0 seconds 06/20/2025 7:15 AM EST [facility] Comment:THERAPEUTIC RANGE: 3 5-75 seconds Blood Venipuncture / Unknown 06/20/2025 6:34 AM EST 06/20/2025 6:45 AM EST us Mattie Dave MD LAB BLOOD ORDERABLES Final Resul t [facility] [address] [place] [address], [facility] [phone] * (ABNORMAL) CBC auto differential (06/20/2025 6:34 AM EST) Only the most recent of4 resultswithin the time period is included. WBC 4.8 4.0 - 11.0 x1000/ L 06/20/2025 6:54 AM [facility] RBC 4.77 4.00 - 6.00 M/ L 06/20/2025 6:54 AM [facility] Hemoglobin 11.8(L) 13.2 - 17.1 g/dL 06/20/2025 6:54 AM [facility] Hematocrit 36.80(L) 38.50 - 50.00 % 06/20/2025 6:54 AM [facility] MCV 77.1(L) 80.0 - 100.0 fL 06/20/2025 6:54 AM [facility] MCH 24.7(L) 27.0 - 33.0 pg 06/20/2025 6:54 AM [facility] MCHC 32.1 31.0 - 36.0 g/dL 06/20/2025 6:54 AM [facility] RDW-CV 17.4(H) 11.0 - 15.0 % 06/20/2025 6:54 AM [facility] Platelets 192 150 - 420 x1000/ L 06/20/2025 6:54 AM [facility] MPV 8.8 8.0 - 12.0 fL 06/20/2025 6:54 AM [facility] Neutrophils 51.2 39.0 - 72.0 % 06/20/2025 6:54 AM [facility] Lymphocytes 32.6 17.0 - 50.0 % 06/20/2025 6:54 AM [facility] Monocytes 13.1(H) 4.0 - 12.0 % 06/20/2025 6:54 AM [facility] Eosinophils 2.5 0.0 - 5.0 % 06/20/2025 6:54 AM [facility] Basophil 0.4 0.0 - 1.4 % 06/20/2025 6:54 AM [facility] Immature Granulocytes 0.2 0.0 - 1.0 % 06/20/2025 6:54 AM [facility] nRBC 0.0 0.0 - 1.0 % 06/20/2025 6:54 AM [facility] Absolute Lymphocyte Count 1.55 0.60 - 3.70 x 1000/ L 06/20/2025 6:54 AM [facility] Monocyte Absolute Count 0.62 0.00 - 1.00 x 1000/ L 06/20/2025 6:54 AM [facility] Eosinophil Absolute Count 0.12 0.00 - 1.00 x 1000/ L 06/20/2025 6:54 AM [facility] Basophil Absolute Count 0.02 0.00 - 1.00 x 1000/ L 06/20/2025 6:54 AM [facility] Absolute Immature Granulocyte Count 0.01 0.00 - 0.30 x 1000/ L 06/20/2025 6:54 AM [facility] Absolute nRBC 0.00 0.00 - 1.00 x 1000/ L 06/20/2025 6:54 AM [facility] ANC (Abs Neutrophil Count) 2.43 2.00 - 7.60 x 1000/ L 06/20/2025 6:54 AM [facility] Blood Venipuncture / Unknown 06/20/2025 6:34 AM EST 06/20/2025 6:45 AM EST us Mattie Dave MD LAB BLOOD ORDERABLES Final Resul t Performing Organization Address City/[facility]/ZIP Co de Phone Number [facility] [address] [place] [address] * MRSA screen by PCR (06/17/2025 11:16 AM EST) MRSA Colonization Status by PCR Not Detected Not Detected 06/17/2025 12:58 PM EST [facility] Swab ANTERIOR NARES SWAB / Unknown Collection / Unknown 06/17/2025 11:16 AM EST 06/17/2025 11:39 AM EST us Nagi Dempsey MD MICROBIOLOGY - GENERAL OR DERABLES Final Result Performing Organization Address City/[facility] Co de Phone Number [facility] [address] [place] [address] * MRI Total Spine with and without IV Contrast (06/17/2025 4:49 AM EST) Anatomical Region Laterality Modality C-spine, T-spine, L-spine, Spine, Ortho Spine Magnetic Resonance 06/17/2025 7:49 AM EST Impressions 06/17/2025 8:14 AM EST Findings most likely representing discitis osteomyelitis of the T2-T3 vertebral bodies. There is phlegmon extending into the epidural space at the spinal canal at the same level. There is no significant spinal canal stenosis or cord signal normality at this level. [facility] Radiology Notify System Classification: Routine. Report initiated by: Garth Jarrett MD Reported and signed by: Julio César Kaminski MD [facility] Narrative 06/17/2025 8:14 AM EST MRI TOTAL SPINE W WO IV CONTRAST([facility] Y) performed on 06/17/2025 4:49 AM INDICATION: concern for discitis/osteomyelitis Concern for infection. COMPARISON: CT 2D RECONSTRUCTION THORACIC SPINE ([facility]) 2025-06-16 TECHNIQUE: MRI of the total spine without and with contrast was performed after administration of 20 mL gadoterate meglumine (DOTAREM) 0.5 mmol/mL (376.9 mg/mL) injection intravenously. FINDINGS: There is diffuse T1 hypointense signal with associated STIR and enhancement involving T2-T3 vertebral bodies, extending to the bilateral pedicles. Enhancement also extends to the surrounding paravertebral soft tissues, also involving the anterior and lateral epidural spaces of the spinal canal at the same level (image 49 series 18). There is associated with bone erosions better demonstrated on recent CT thoracic spine. There is enhancing phlegmon within the T2-T3 intervertebral disc. There is no spinal canal stenosis or cord signal abnormality at this level. Vertebral body heights are otherwise preserved. There is no other suspicious focus of enhancement. Spinal cord is normal in signal and diameter. Conus terminalis terminates at the level of L1. Mild intervertebral disc space narrowing is seen at T8-9 through T10. Type II Modic changes of the inferior endplate of T10. Mild bilateral neuroforaminal narrowing at T9-T10 and T10-T11. There is no other significant spinal canal or neuroforaminal narrowing. Remainder of the paravertebral soft tissues are unremarkable. Procedure Note Julio César Kaminski MD - 06/17/2025 MRI TOTAL SPINE W WO IV CONTRAST([facility]) performed on 54:49 AM INDICATION: concern for discitis/osteomyelitis Concern for infection. COMPARISON: CT 2D RECONSTRUCTION THORACIC SPINE ([facility])2025-06-16 TECHNIQUE: MRI of the total spine without and with contrast was performedafter administration of 20 mL gadoterate meglumine (DOTAREM) 0.5 mmol/mL(376.9 mg/mL) injection intravenously. FINDINGS: There is diffuse T1 hypointense signal with associated STIR andenhancement involving T2-T3 vertebral bodies, extending to the bilateralpedicles. Enhancement also extends to the surrounding paravertebral softtissues, also involving the anterior and lateral epidural spaces of thespinal canal at the same level (image 49 series 18). There is associated with bone erosions better demonstrated on recent CTthoracic spine. There is enhancing phlegmon within the T2-U1hnnllkxxwgtrnn disc. There is no spinal canal stenosis or cord signal abnormality at thislevel. Vertebral body heights are otherwise preserved. There is no other suspicious focus of enhancement. Spinal cord is normal in signal and diameter. Conus terminalis terminates at the level of L1. Mild intervertebral disc space narrowing is seen at T8-9 through T10. Type II Modic changes of the inferior endplate of T10. Mild bilateral neuroforaminal narrowing at T9-T10 and T10-T11. There is no other significant spinal canal or neuroforaminal narrowing. Remainder of the paravertebral soft tissues are unremarkable. IMPRESSION: Findings most likely representing discitis osteomyelitis of the T2-H0gxendbzjv bodies. There is phlegmon extending into the epidural space atthe spinal canal at the same level. There is no significant spinal canalstenosis or cord signal normality at this level. [facility] Radiology Notify System Classification: Routine. Report initiated by: Garth Jarrett MD Reported and signed by: Julio César Kaminski MD [facility] us Yesica ARIZMENDI IMG MRI ORDERABLES F inal Result * Extra blue top specimen ( [facility]) (06/16/2025 9:09 PM EST) Hold Specimen Hold 06/17/2025 6:00 AM EST [facility] Blood Venipuncture / Unknown 06/16/2025 9:09 PM EST 06/16/2025 9:10 PM EST us Torey Guevara MD LAB BLOOD ORDERABLES Final Resul t [facility] MEDICINE [address] [place] [address] * CTA Chest (PE) w IV Contrast (06/16/2025 5:35 PM EST) Anatomical Region Laterality Modality Chest Computed Tomogra phy 06/16/2025 6:00 PM EST Impressions 06/16/2025 6:16 PM EST 1. No evidence of pulmonary embolism to the level of the proximal segmental pulmonary arteries within limitation of poor contrast bolus timing. 2. Erosive changes at the T2-T3 disc space, concerning for possible discitis osteomyelitis. Per chart review, this was noted and better characterized on an outside facility MRI cervical spine. Correlation with outside images is recommended. Further characterization with dedicated thoracic spine MRI may be considered as clinically reported. Radiology Notify System Classification: Routine. Reported and signed by: Keisha Cloud MD [facility] Narrative 06/16/2025 6:16 PM EST CTA PE (CHEST) PROVIDED INDICATION: palpitations, chest pain. central line placement, concern for PE. COMPARISON: CT CHEST W IV CONTRAST 2023-03-22 TECHNIQUE: CT images of the chest were obtained from the lung bases through the apices after the intravenous administration intravenous contrast. Coronal and oblique 3D/MIPS reformats are provided. IV CONTRAST: 70 ML IOHEXOL (OMNIPAQUE) 350 MG IODINE/ML INJECTION FINDINGS: PULMONARY ARTERIES: Examination is somewhat limited by contrast bolus timing, limiting evaluation of the subsegmental pulmonary vasculature. There are no filling defects in the pulmonary arterial vasculature to the level of proximal segmental branches. The more peripheral branches are not well evaluated due to streak/mixing artifact. The main pulmonary artery is normal in caliber. RIGHT HEART FUNCTION: The RV/LV ratio measures less than 1. No reflux of contrast into the IVC or hepatic veins. HEART/VESSELS: No pericardial effusion. Heart is normal in size. No evidence of acute aortic pathology. Right internal jugular vein approach central venous catheter with catheter tip terminating at the superior cavoatrial junction. LUNGS/AIRWAYS/PLEURA: The central airways are clear. No pulmonary consolidation. Subsegmental atelectasis in the bilateral lower lobes. Scattered calcified granulomas are seen. No pleural effusion or pneumothorax. LYMPH NODES/MEDIASTINUM: No evidence of thoracic adenopathy. Visualized thyroid gland is unremarkable. Esophagus is grossly unremarkable. UPPER ABDOMEN: Unremarkable. Percutaneous enteric tube is partially imaged, with the retention balloon seen within the stomach. OSSEOUS STRUCTURES/SOFT TISSUES: There are erosive changes at T2-T3, concerning for possible discitis osteomyelitis. Otherwise, no aggressive osseous lesions are detected on CT. Procedure Note Keisha Cloud MD - 06/16/2025 CTA PE (CHEST) PROVIDED INDICATION: palpitations, chest pain. central line placement,concern for PE. COMPARISON: CT CHEST W IV CONTRAST 2023-03-22 TECHNIQUE: CT images of the chest were obtained from the lung basesthrough the apices after the intravenous administration intravenouscontrast. Coronal and oblique 3D/MIPS reformats are provided. IV CONTRAST: 70 ML IOHEXOL (OMNIPAQUE) 350 MG IODINE/ML INJECTION FINDINGS: PULMONARY ARTERIES: Examination is somewhat limited by contrast bolustiming, limiting evaluation of the subsegmental pulmonary vasculature.There are no filling defects in the pulmonary arterial vasculature to thelevel of proximal segmental branches. The more peripheral branches are notwell evaluated due to streak/mixing artifact. The main pulmonary artery isnormal in caliber. RIGHT HEART FUNCTION: The RV/LV ratio measures less than 1. No reflux ofcontrast into the IVC or hepatic veins. HEART/VESSELS: No pericardial effusion. Heart is normal in size. Noevidence of acute aortic pathology. Right internal jugular vein approach central venous catheter with cathetertip terminating at the superior cavoatrial junction. LUNGS/AIRWAYS/PLEURA: The central airways are clear. No pulmonaryconsolidation. Subsegmental atelectasis in the bilateral lower lobes.Scattered calcified granulomas are seen. No pleural effusion orpneumothorax. LYMPH NODES/MEDIASTINUM: No evidence of thoracic adenopathy. Visualizedthyroid gland is unremarkable. Esophagus is grossly unremarkable. UPPER ABDOMEN: Unremarkable. Percutaneous enteric tube is partiallyimaged, with the retention balloon seen within the stomach. OSSEOUS STRUCTURES/SOFT TISSUES: There are erosive changes at T2-T3,concerning for possible discitis osteomyelitis. Otherwise, no aggressiveosseous lesions are detected on CT. IMPRESSION: 1. No evidence of pulmonary embolism to the level of the proximalsegmental pulmonary arteries within limitation of poor contrast bolustiming. 2. Erosive changes at the T2-T3 disc space, concerning for possiblediscitis osteomyelitis. Per chart review, this was noted and bettercharacterized on an outside facility MRI cervical spine. Correlation withoutside images is recommended. Further characterization with dedicatedthoracic spine MRI may be considered as clinically reported. Radiology Notify System Classification: Routine. Reported and signed by: Keisha Cloud MD [facility] Yesica ARIZMENDI [facility] CT ORDERABLES Fi nal Result * CT 2D Reconstruction Thoracic Spine ([facility]) (06/16/2025 5:35 PM EST) Anatomical Region Laterality Modality Spine, Ortho T-spine Computed To mography 06/16/2025 4:56 PM EST Impressions 06/16/2025 6:14 PM EST 1. 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 MRI thoracic spine without and with contrast or correlation to prior outside facility imaging is recommended 2. No acute abnormality in the cervical or lumbar spine. [facility] Radiology Notify System Classification: Routine. (accession [id number]), Routine. (accession [id number]), Routine. (accession [id number]) Report initiated by: Jigar Palomino MD Reported and signed by: Ld Moncada MD [facility] Narrative 06/16/2025 6:[address] CERVICAL SPINE WO IV CONTRAST, CT LUMBAR SPINE WO IV CONTRAST, CT 2D RECONSTRUCTION THORACIC SPINE ([facility]) INDICATION: back pain. COMPARISON: CT ABDOMEN PELVIS W IV CONTRAST 2023-08-18 (accession [id number]), CT ABDOMEN PELVIS W IV CONTRAST 2023-08-18 (accession [id number]), CT ABDOMEN PELVIS W IV CONTRAST 2023-08-18 (accession [id number]), outside facility reports (images are not available at this time) TECHNIQUE: CT of the cervical spine and lumbar without intravenous contrast was performed. Coronal and sagittal reformatted images are also submitted. Multiplanar 2-D Reconstruction images of the thoracic spine. FINDINGS: Thoracic spine: There are erosions of inferior endplate of T2 and superior endplate of T3, consistent with discitis and osteomyelitis. No associated paravertebral fluid collection. There is no evidence of acute fracture. No malalignment. Cervical spine: There is no compression deformity or evidence for acute fracture or subluxation. The atlanto-occipital and atlanto-axial articulations are intact. Minimal degenerative changes, most pronounced at C5-C6. The prevertebral soft tissues are within normal limits. There is a right-sided central venous catheter, partially visualized. Postsurgical changes in the left supraclavicular soft tissues. Lumbar spine: No acute fracture or subluxation. The vertebral body heights are maintained. No significant degenerative changes. No aggressive bone lesion. 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 No significant spondylolisthesis. Procedure Note Ld Moncada MD - 06/16/2025 CT CERVICAL SPINE WO IV CONTRAST, CT LUMBAR SPINE WO IV CONTRAST, CT 2DRECONSTRUCTION THORACIC SPINE ([facility]) INDICATION: back pain. COMPARISON: CT ABDOMEN PELVIS W IV CONTRAST 2023-08-18 ([id number]), CT ABDOMEN PELVIS W IV CONTRAST 2023-08-18 ([id number]), CT ABDOMEN PELVIS W IV CONTRAST 2023-08-18 ([id number]), outside facility reports (images are not available at thistime) TECHNIQUE: CT of the cervical spine and lumbar without intravenouscontrast was performed. Coronal and sagittal reformatted images are alsosubmitted. Multiplanar 2-D Reconstruction images of the thoracic spine. FINDINGS: Thoracic spine: There are erosions of inferior endplate of T2 and superior endplate of T3,consistent with discitis and osteomyelitis. No associated paravertebralfluid collection. There is no evidence of acute fracture. No malalignment. Cervical spine: There is no compression deformity or evidence for acute fracture orsubluxation. The atlanto-occipital and atlanto-axial articulations areintact. Minimal degenerative changes, most pronounced at C5-C6. The prevertebral soft tissues are within normal limits. There is aright-sided central venous catheter, partially visualized. Postsurgical changes in the left supraclavicular soft tissues. Lumbar spine: No acute fracture or subluxation. The vertebral body heights aremaintained. No significant degenerative changes. No aggressive bonelesion. 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 No significant spondylolisthesis. IMPRESSION: 1. 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 No acute abnormality in the cervical or lumbar spine. [facility] Radiology Notify System Classification: Routine. ([id number]), Routine. (accession [id number]), Routine. ([id number]) Report initiated by: Jigar Palomino MD Reported and signed by: Ld Moncada MD [facility] us Melissa Betts MD IMG CT ORDERABLES Final Re sult * CT Lumbar Spine wo IV Contrast (06/16/2025 5:22 PM EST) Anatomical Region Laterality Modality L-spine, Spine, Ortho L-spine Co mputed Tomography 06/16/2025 4:56 PM EST Impressions 06/16/2025 6:14 PM EST 1. 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 MRI thoracic spine without and with contrast or correlation to prior outside facility imaging is recommended 2. No acute abnormality in the cervical or lumbar spine. [facility] Radiology Notify System Classification: Routine. (accession [id number]), Routine. (accession [id number]), Routine. (accession [id number]) Report initiated by: Jigar Palomino MD Reported and signed by: Ld Moncada MD [facility] Narrative 06/16/2025 6:[address] CERVICAL SPINE WO IV CONTRAST, CT LUMBAR SPINE WO IV CONTRAST, CT 2D RECONSTRUCTION THORACIC SPINE ([facility]) INDICATION: back pain. COMPARISON: CT ABDOMEN PELVIS W IV CONTRAST 2023-08-18 (accession [id number]), CT ABDOMEN PELVIS W IV CONTRAST 2023-08-18 (accession [id number]), CT ABDOMEN PELVIS W IV CONTRAST 2023-08-18 (accession [id number]), outside facility reports (images are not available at this time) TECHNIQUE: CT of the cervical spine and lumbar without intravenous contrast was performed. Coronal and sagittal reformatted images are also submitted. Multiplanar 2-D Reconstruction images of the thoracic spine. FINDINGS: Thoracic spine: There are erosions of inferior endplate of T2 and superior endplate of T3, consistent with discitis and osteomyelitis. No associated paravertebral fluid collection. There is no evidence of acute fracture. No malalignment. Cervical spine: There is no compression deformity or evidence for acute fracture or subluxation. The atlanto-occipital and atlanto-axial articulations are intact. Minimal degenerative changes, most pronounced at C5-C6. The prevertebral soft tissues are within normal limits. There is a right-sided central venous catheter, partially visualized. Postsurgical changes in the left supraclavicular soft tissues. Lumbar spine: No acute fracture or subluxation. The vertebral body heights are maintained. No significant degenerative changes. No aggressive bone lesion. 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 No significant spondylolisthesis. Procedure Note Ld Moncada MD - 06/16/2025 CT CERVICAL SPINE WO IV CONTRAST, CT LUMBAR SPINE WO IV CONTRAST, CT 2DRECONSTRUCTION THORACIC SPINE ([facility]) INDICATION: back pain. COMPARISON: CT ABDOMEN PELVIS W IV CONTRAST 2023-08-18 ([id number]), CT ABDOMEN PELVIS W IV CONTRAST 2023-08-18 ([id number]), CT ABDOMEN PELVIS W IV CONTRAST 2023-08-18 ([id number]), outside facility reports (images are not available at thistime) TECHNIQUE: CT of the cervical spine and lumbar without intravenouscontrast was performed. Coronal and sagittal reformatted images are alsosubmitted. Multiplanar 2-D Reconstruction images of the thoracic spine. FINDINGS: Thoracic spine: There are erosions of inferior endplate of T2 and superior endplate of T3,consistent with discitis and osteomyelitis. No associated paravertebralfluid collection. There is no evidence of acute fracture. No malalignment. Cervical spine: There is no compression deformity or evidence for acute fracture orsubluxation. The atlanto-occipital and atlanto-axial articulations areintact. Minimal degenerative changes, most pronounced at C5-C6. The prevertebral soft tissues are within normal limits. There is aright-sided central venous catheter, partially visualized. Postsurgical changes in the left supraclavicular soft tissues. Lumbar spine: No acute fracture or subluxation. The vertebral body heights aremaintained. No significant degenerative changes. No aggressive bonelesion. 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 No significant spondylolisthesis. IMPRESSION: 1. 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 No acute abnormality in the cervical or lumbar spine. [facility] Radiology Notify System Classification: Routine. ([id number]), Routine. (accession [id number]), Routine. ([id number]) Report initiated by: Jigar Palomino MD Reported and signed by: Ld Moncada MD [facility] Melissa Betts MD IMG CT ORDERABLES Final Re sult * CT Cervical Spine wo IV Contrast (06/16/2025 5:22 PM EST) Anatomical Region Laterality Modality C-spine, Spine,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
--- OUTSIDE RECORDS SUMMARY | 2025-07-24 20:32 | XMS_ITS | Encounter Summary ---
Author Organization [facility] Address [address] [place] [address] Care Team Providers Care Weight Control Lecturer Name Role Phone Jacqueline Kay MD Primary Care Provider Unava ilable Jacqueline Kay MD Primary Care Provider Unava ilable Jacqueline Kay MD Unavailable Unavailable Jacqueline Kay MD Unavailable Unavailable Stephanie Darnell I MATERIALS CLERK Unavailable [phone] Stephanie Darnell I MATERIALS CLERK Unavailable [phone] Cathleen Allan MD Unavailable [phone] Pete Hester MD Unavailable [phone] Pati Armendariz PhD Unavailabl e Madhav Mcfadden MD Primary Care Provider [phone] Jacqueline Kay MD Unavailable Unavailable Yasmine Cohen RN Unavailable Unavaila ble Bre Almaguer RN Unavailable [phone] Madhav Mcfadden MD Unavailable [phone] Romero Pryor MD Unavailable [phone] Prerna Paulino MD Unavailable [phone] Magda Davis MD Unavailable [phone] Ifeoma Hanson MD Unavailable [phone] Ifeoma Hanson MD Unavailable Encounter Details Date Type Department Care Team (Late st Contact Info) Description 04/30/2018 Scanned Document [facility] Keron [address] [place] [address] [place] [address] Provider, Generic Social History Tobacco Use Types [...] Description 2025 8:00 AM EST Office Visit [address] [phone] Madhav Mcfadden MD [address] [place] [address] 09/01/2025 9:20 AM EST Office Visit [id number] [address] [address] Reji Mi, DO [address] [place] [address] [phone] 09/29/2025 9:20 AM EST Office Visit [id number] [address] [address] Reji Mi, DO [address] [place] [address] [phone] 10/27/2025 9:40 AM EDT Office Visit [id number] [address] [place] [phone] ShmuelRejiil, DO [address] [phone] 12/01/2025 9:40 AM EDT Office Visit [id number] [address] [place] [address] ShmuelReji Joni, DO [address] [phone] 02/03/2026 9:30 AM EDT Telemedicine [facility] Endocrinology [address] [phone] Ifeoma Hanson MD [address] [place] [address] documented as of this encounter Visit Diagnoses Not on filedocumented in this encounter Additional Health Concerns Infection Onset Date Last Indicated Resolved Time R/O Gastrointestinal Infection 10/31/2022 10/31/2022 11/02/2022 11:58 AM EDT R/O C. Difficile 10/31/2022 10/31/2022 11/02/2022 11:58 AM EDT documented as of this encounter Care Teams Weight Control Lecturer Relationship Specialty Start Date End Date Jacqueline Kay MD PCP - General Family Medicine 11/01/17 04/28/21 Jacqueline Kay MD PCP - General Family Medicine 04/29/21 01/15/22 Jacqueline Kay MD PCP - [employer] Commercial Attributed 06/06/20 07/05/20 Stephanie Darnell APRN [address] [phone] PCP - [employer] Commercial Attributed 07/06/20 10/03/20 Stephanie Darnell APRN [address] [place], [place] [phone] PCP - [employer] Commercial Attributed 05/06/21 11/03/21 Madhav Mcfadden MD [address] [place] [address] PCP - General Family Medicine 01/16/22 Jacqueline Kay MD PCP - [employer] Commercial Attributed 11/04/21 07/05/22 Madhav Mcfadden MD [address] [phone] (Work) PCP - [employer] Commercial Attributed 07/06/22 07/05/23 Jacqueline Kay MD Family Medicine 04/29/21 03/30/22 Cathleen Allan MD [address] [place] [phone] Urology 09/15/16 Pete Hester MD [address] [place], [place] [phone] Surgery, Orthopedic 08/15/19 Pati Armendariz, PhD [address] [place], [place] [phone] Clinical Psychologist Psychology 09/16/21 Yasmine Cohen, RN [address] [phone] [facility] Community Literature Professor 07/21/22 08/26/23 Bre Almaguer, RN 1290 [facility] 4 [place] [address] [facility] Community Literature Professor 10/03/22 11/13/22 Romero Pryor MD [address] [place] [address] Cardiovascular Disease 02/05/23 Prerna Paulino MD [address] [place] [address] Internal Medicine 07/04/24 Magda Davis MD [address] [place] [address] Gastroenterology 07/04/24 Ifeoma Hanson MD [address] [place], [place] [address] Endocrinology 07/04/24 Ifeoma Hanson MD [address] [place] [address] Endocrinology 11/26/24 documented as of this encounter
--- OUTSIDE RECORDS SUMMARY | 2025-07-24 20:32 | XMS_ITS | Encounter Summary ---
Author Organization [facility] Address [address] [place] [address] Care Team Providers Care Blackjack Dealer Name Role Phone Jacqueline Kay MD Primary Care Provider Unava ilable Jacqueline Kay MD Primary Care Provider Unava ilable Jacqueline Kay MD Unavailable Unavailable Jacqueline Kay MD Unavailable Unavailable Stephanie Darnell I METAL TRADES INSTRUCTOR Unavailable [phone] Stephanie Darnell I METAL TRADES INSTRUCTOR Unavailable [phone] Cathleen Allan MD Unavailable [phone] Pete Hester MD Unavailable [phone] Pati Armendariz PhD Unavailabl e Madhav Mcfadden MD Primary Care Provider [phone] Jacqueline Kay MD Unavailable Unavailable Yasmine Cohen RN Unavailable Unavaila ble Bre Almaguer RN Unavailable [phone] Madhav Mcfadden MD Unavailable [phone] Romero Pryor MD Unavailable [phone] Prerna Paulino MD Unavailable [phone] Magda Davis MD Unavailable [phone] Ifeoma Hanson MD Unavailable Ifeoma Hanson MD Unavailable Encounter Details Date Type Department Care Team (Late st Contact Info) Description 03/13/2019 Scanned Document [facility] [address] [facility], [place] [phone] Natali Lucas, METAL TRADES INSTRUCTOR [address] [place] [address] Social History Tobacco Use Types Packs/Day Years [...] Description 2025 8:00 AM EST Office Visit [address] [phone] Madhav Mcfadden MD [address] [place] [address] 09/01/2025 9:20 AM EST Office Visit [facility] [id number] [address] [phone] Reji Mi, DO [address] [phone] 09/29/2025 9:20 AM EST Office Visit [id number] [address] [phone] Reji Mi, DO [address] [phone] 10/27/2025 9:40 AM EDT Office Visit [id number] [address] [phone] ShmuelReji Joni, DO [address] [address] 12/01/2025 9:40 AM EDT Office Visit [id number] [address] [phone] Shmuel, Reji Joni, DO [address] [phone] 02/03/2026 9:30 AM EDT Telemedicine [facility] Endocrinology [address] [phone] Ifeoma Hanson MD [address] [place] [address] documented as of this encounter Visit Diagnoses Not on filedocumented in this encounter Additional Health Concerns Infection Onset Date Last Indicated Resolved Time R/O Gastrointestinal Infection 10/31/2022 10/31/2022 11/02/2022 11:58 AM EDT R/O C. Difficile 10/31/2022 10/31/2022 11/02/2022 11:58 AM EDT documented as of this encounter Care Teams Blackjack Dealer Relationship Specialty Start Date End Date Jacqueline Kay MD PCP - General Family Medicine 11/01/17 04/28/21 Jacqueline Kay MD PCP - General Family Medicine 04/29/21 01/15/22 Jacqueline Kay MD PCP - [employer] Commercial Attributed 06/06/20 07/05/20 Stephanie Darnell APRN [address] [place] [phone] PCP - [employer] Commercial Attributed 07/06/20 10/03/20 Stephanie Darnell APRN [address] [phone] PCP - [employer] Commercial Attributed 05/06/21 11/03/21 Madhav Mcfadden MD [address] [place] [address] PCP - General Family Medicine 01/16/22 Jacqueline Kay MD PCP - [employer] Commercial Attributed 11/04/21 07/05/22 Madhav Mcfadden MD [address] [phone] PCP - [employer] Commercial Attributed 07/06/22 07/05/23 Jacqueline Kay MD Family Medicine 04/29/21 03/30/22 Cathleen Allan MD [address] [place] [phone] Urology 09/15/16 Pete Hester MD [address] [place] [phone] Surgery, Orthopedic 08/15/19 Pati Armendariz, PhD [address] [place] [address] [phone] Clinical Psychologist Psychology 09/16/21 Yasmine Cohen, RN [address] [place] [address] [employer] Machine Builder 07/21/22 08/26/23 Bre Almaguer, RN [address] [address] [employer] Electrical Machine Builder 10/03/22 11/13/22 Romero Pryor MD [address] [place] [address] Cardiovascular Disease 02/05/23 Prerna Paulino MD [address] [place] [address] Internal Medicine 07/04/24 Magda Davis MD [address] [place], [place] [phone] Gastroenterology 07/04/24 Ifeoma Hanson MD [address] [place] [address] Endocrinology 07/04/24 Ifeoma Hanson MD [address] [place] [address] Endocrinology 11/26/24 documented as of this encounter
--- OUTSIDE RECORDS SUMMARY | 2025-07-24 20:32 | XMS_ITS | Encounter Summary ---
Author Organization [facility] Address [address] [place] [address] Care Team Providers Care Seating Upholsterer Name Role Phone Cathleen Allan MD Unavailable [phone] Pete Hester MD Unavailable [phone] Pati Armendariz PhD Unavailabl e Madhav Mcfadden MD Primary Care Provider [phone] Romero Pryor MD Unavailable [phone] Prerna Paulino MD Unavailable [phone] Magda Davis MD Unavailable [phone] Ifeoma Hanson MD Unavailable [phone] Ifeoma Hanson MD Unavailable [phone] Encounter Details Date Type Department Care Team (Late st Contact Info) Description 12/05/2024 Scanned Document [facility] Endocrinology [address] [phone] Unknown Unknow Provider Address Social History Tobacco Use Types Packs/Day Years Used Date Smoking Tobacco: Never Passive Smoke Exposure: Past Smokeless Tobacco: Never Alcohol Use Standard Drinks/Week Comments Not Currently 0 (1 standard drink = 0.6 oz pur e alcohol) [facility] Utilities Answer Date Recorded In the past [...] and Family Not on file 09/18/2024 Attends [employer] Not on file 09/18 Active Member [...] PHQ-2 Answer Date Recorded PHQ-2 Total Score 5 11/03/2024 Hunger Vital Sign Answer Date Recorded Within [...] place to sleep or slept in a jail (including now)? No 04/02/2023 Housing Stability Vital Sign Answer Alden e Recorded In the last 12 months, was t here a time when you were not able to pay the mortgage or rent on time? No 09/18/2024 In the past 12 months, how m any times have you moved where you were living? 0 09/18/2024 At any time in the past 12 m [facility], were you homeless or living in a jail (including now)? No 09/18/2024 Physical Activity Answer Date Recorded On average, how many days pe r week do you engage in moderate to strenuous exercise (like a brisk walk)? 3 days 07/04/2024 On average, how many minutes do you exercise per day at this level? 20 min 07/04/2024 Sex and Gender Information Value Date Recorded Sex Assigned at Male 08/16/2022 10:08 AM EST Legal Sex Male 2:40 PM EDT Gender Identity Male 08/16/2022 10:08 AM EST Sexual Orientation Heterosexual (straight) 08/16 10:08 AM EST documented as of this encounter Plan of Treatment Upcoming Encounters Date Type Department Care Team (Late st Contact Info) Description 2025 8:00 AM EST Office Visit [address] [phone] Madhav Mcfadden MD [address] [place] [address] 09/01/2025 9:20 AM EST Office Visit [facility] [id number] [address] [phone] Reji Mi DO [address] [phone] 09/29/2025 9:20 AM EST Office Visit [facility] PA[facility] MGMT [id number] [address] [place] [phone] ShmuelReji, DO [address] [address] 10/27/2025 9:40 AM EDT Office Visit MG PAIN MGMT [id number] [address] [place] [address] ShmuelReji Joni, DO [address] [place] [address] 12/01/2025 9:40 AM EDT Office Visit MG PAIN MGMT [id number] [address] [place] [phone] ShmuelReji Joni, DO [address] [place] [address] [phone] 02/03/2026 9:30 AM EDT Telemedicine [facility] Endocrinology [address] [phone] Ifeoma Hanson MD [address] [place] [address] [phone] documented as of this encounter Goals Goal [...] he was provided today with a [facility] HEP., ongoing OT LTG 2 Occupational Therapy No Maida Benito, OT Note: Patient will decrease Quick Dash score from 79.5 to 10 or less in order to complete functional tasks with greater ease x 12 weeks 06/18/2019 Scored the same today, ongoing OT LTG 3 Occupational Therapy No Maida Benito, OT Note: Patient will increase L support specialist strength (4lbs) to 60 lbs or more in order to open pill bottles with greater ease x12 weeks Patient will increase L lateral pinch (3.5), L tip pinch (2.5), L 3 jaw pinch (2.5) by 5 lbs each in order for greater ease with typing x12 weeks. 06/18/2019 L support specialist- 20 lbs L lateral pinch- 6.2 Tip [...] to do things Care Plan Pain No Anthony Gallegos, Pati Medina, PhD Note: Develop an enhanced capacity for emotional expression that enables adaptive coping with frustration, and other emotions Care Plan Pain No Pati Armendariz, PhD documented as of this encounter Visit Diagnoses Not on filedocumented in this encounter Additional Health Concerns Active Problems Noted Date Diagnosed Date Pain 09/26/2024 documented as of this encounter Care Teams Seating Upholsterer Relationship Specialty Start Date End Date Madhav Mcfadden MD [address] [place] [address] PCP - General Family Medicine 01/16/22 Cathleen Allan MD Urology 09/15/16 Pete Hester MD [address] [place] [address] Surgery, Orthopedic 08/15/19 Pati Armendariz, PhD [address] [place] [address] Clinical Psychologist Psychology 09/16/21 Romero Pryor MD [address] [place] [address] Cardiovascular Disease 02/05/23 Prerna Paulino MD [address] [place] [address] Internal Medicine 07/04/24 Magda Davis MD [address] [place] [address] Gastroenterology 07/04/24 Ifeoma Hanson MD [address] [place] [address] Endocrinology 07/04/24 Ifeoma Hanson MD [address] [place] [address] Endocrinology 11/26/24 documented as of this encounter
--- OUTSIDE RECORDS SUMMARY | 2025-07-24 20:32 | XMS_ITS | Encounter Summary ---
Author Organization [facility] Address [address] [place] [address] Care Team Providers Care Crime Victim Specialist Name Role Phone Cathleen Allan MD Unavailable [phone] Pete Hester MD Unavailable [phone] Pati Armendariz PhD Unavailabl e Madhav Mcfadden MD Primary Care Provider [phone] Romero Pryor MD Unavailable [phone] Prerna Paulino MD Unavailable [phone] Magda Davis MD Unavailable [phone] Ifeoma Hanson MD Unavailable [phone] Ifeoma Hanson MD Unavailable + [phone] Encounter Details Date Type Department Care Team (Late st Contact Info) Description 07/10/2024 Scanned Document [facility] [address] [facility] [address] [place] [address] Provider, Generic Social History Tobacco Use Types Packs/Day Years Used Date Smoking Tobacco: Never Passive Smoke Exposure: Past Smokeless Tobacco: Never Alcohol Use Standard Drinks/Week Comments Not Currently 0 (1 standard drink = 0.6 oz pur e alcohol) AUDIT-C Answer Date Recorded Q1: How often do you have a drink containing alcohol? Never 01/23/2023 Q2: How many drinks containi ng alcohol do you have on a typical day when you are drinking? Patient does not drink Q3: How often do you have si x or more drinks on one occasion? Never 01/23/2023 Overall Financial Resource Strain (CARDIA) Answe r Date Recorded How hard is it for you to pa y for the very basics like food, housing, medical care, and heating? Not very hard 04/02/2023 PHQ-2 Answer Date Recorded PHQ-2 Total Score 4 07/04/2024 Hunger Vital Sign Answer Date Recorded Within the past 12 months, y ou worried that your food would run out before you got the money to buy more. Never true 04/02/20 23 Within the past 12 months, t he food you bought just didn't last and you didn't have money to get more. Never true 04/02/2023 PRAPARE - Transportation Answer Date Re corded In the past 12 months, has l ack of transportation kept you from medical appointments or from getting medications? No 03/07 In the past 12 months, has l ack of transportation kept you from meetings, work, or from getting things needed for daily living? No 04/02/2023 Housing Stability Vital Sign Answer [...] place to sleep or slept in a intermediate (including now)? No 04/02/2023 Physical Activity Answer Date Recorded On average, [...] Description 2025 8:00 AM EST Office Visit [address] [phone] Madhav Mcfadden MD [address] [place] [address] 09/01/2025 9:20 AM EST Office Visit MG PAIN MGMT [id number] [address] [phone] Reji Mi, DO [address] [place] [address] 09/29/2025 9:20 AM EST Office Visit MG PAIN MGMT [id number] [address] [phone] Reji Mi, DO [address] [place] [address] 10/27/2025 9:40 AM EDT Office Visit MG PAIN MGMT [id number] [address] [phone] Reji Mi, DO [address] [place] [address] 12/01/2025 9:40 AM EDT Office Visit MG PAIN MGMT [id number] [address] [phone] Reji Mi, DO [address] [place] [address] 02/03/2026 9:30 AM EDT Telemedicine [facility] Endocrinology [address] [place] [address] Ifeoma Hanson MD [address] [place] [address] documented as of this encounter Goals Goal [...] and he was provided today with a [facility] HEP., ongoing OT LTG 2 Occupational Therapy No Maida Benito, OT Note: Patient will decrease Quick Dash score from 79.5 to 10 or less in order to complete functional tasks with greater ease x 12 weeks 06/18/2019 Scored the same today, ongoing OT LTG 3 Occupational Therapy No Maida Benito, OT Note: Patient will increase L midlevel provider strength (4lbs) to 60 lbs or more in order to open pill bottles with greater ease x12 weeks Patient will increase L lateral pinch (3.5), L tip pinch (2.5), L 3 jaw pinch (2.5) by 5 lbs each in order for greater ease with typing x12 weeks. 06/18/2019 L midlevel provider- 20 lbs L lateral pinch- 6.2 Tip [...] Diagnoses Not on filedocumented in this encounter Care Teams Crime Victim Specialist Relationship Specialty Start Date End Date Madhav Mcfadden MD [address] [place] [address] PCP - General Family Medicine 01/16/22 Cathleen Allan MD Urology 09/15/16 Pete Hester MD [address] [address] Surgery, Orthopedic 08/15/19 Pati Armendariz, PhD [address] [place] [address] Clinical Psychologist Psychology 09/16/21 Romero Pryor MD [address] [place] [address] [place] [address] Cardiovascular Disease 02/05/23 Prerna Paulino MD [address] [place] [address] Internal Medicine 07/04/24 Magda Davis MD [address] [place] [address] Gastroenterology 07/04/24 Ifeoma Hanson MD [address] [place] [address] Endocrinology 07/04/24 Ifeoma Hanson MD [address] [place] [address] Endocrinology 11/26/24 documented as of this encounter
--- OUTSIDE RECORDS SUMMARY | 2025-07-24 20:32 | XMS_ITS | Encounter Summary ---
Author Organization [facility] Address [address] [place] [address] Care Team Providers Care Group Chief Operator Name Role Phone Cathleen Allan MD Unavailable [phone] Pete Hester MD Unavailable [phone] Pati Armendariz PhD Unavailabl e Madhav Mcfadden MD Primary Care Provider [phone] Romero Pryor MD Unavailable [phone] Prerna Paulino MD Unavailable [phone] Magda Davis MD Unavailable [phone] Ifeoma Hanson MD Unavailable [phone] Ifeoma Hanson MD Unavailable [phone] Encounter Details Date Type Department Care Team (Late st Contact Info) Description 03/20/2025 Scanned Document [facility] [id number] 65 [facility] [address] [place] [address] Pain Management, Scan Social History Tobacco Use Types Packs/Day Years Used Date Smoking Tobacco: Never Passive Smoke Exposure: Past Smokeless Tobacco: Never Alcohol Use Standard Drinks/Week Comments Not Currently 0 (1 standard drink = 0.6 oz pur e alcohol) [facility] Utilities Answer Date Recorded In the past 12 months has [employer], gas, oil, or water company threatened to shut off services in your home? No 09/18/2024 Social Connection and Isolation Panel Answer Date Recorded In a typical week, how many times do you talk on the phone with family, friends, or neighbors? More than three times a week 09/18/2024 Frequency of Social Gatherin gs with Friends and Family Not on file 09/18/2024 Attends [employer] Not on file 09/18 Active Member [...] Answer Date Recorded PHQ-2 Total Score 4 03/11/2025 Hunger Vital Sign Answer Date Recorded Within [...] place to sleep or slept in a halfway (including now)? No 04/02/2023 Housing Stability Vital Sign Answer Alden e Recorded In the last 12 months, was t here a time when you were not able to pay the mortgage or rent on time? No 09/18/2024 In the past 12 months, how m any times have you moved where you were living? 0 09/18/2024 At any time in the [facility] 12 m [facility] were you homeless or living in a halfway (including now)? No 09/18/2024 Physical Activity Answer [...] Description 2025 8:00 AM EST Office Visit [address] [phone] Madhav Mcfadden MD [address] [place] [address] 09/01/2025 9:20 AM EST Office Visit MG PAIN MGMT [id number] [address] [phone] Reji Mi DO [address] [address] 09/29/2025 9:20 AM EST Office Visit MG PAIN MGMT [id number] [address] [phone] Reji Mi, DO [address], [place] [phone] 10/27/2025 9:40 AM EDT Office Visit MG PAIN MGMT [id number] [address] [place] [phone] ShmuelRejiil, DO [address] [place] [address] 12/01/2025 9:40 AM EDT Office Visit MG PAIN MGMT [id number] [address] [place] [phone] Reji Miil, DO [address], [place] [phone] 02/03/2026 9:30 AM EDT Telemedicine [facility] Endocrinology [address] [address] Ifeoma Hanson MD [address] [place] [address] [phone] documented as of this encounter Goals Goal [...] and he was provided today with a [facility] HEP., ongoing OT LTG 2 Occupational Therapy No Maida Benito, OT Note: Patient will decrease Quick Dash score from 79.5 to 10 or less in order to complete functional tasks with greater ease x 12 weeks 06/18/2019 Scored the same today, ongoing OT LTG 3 Occupational Therapy No Maida Benito, OT Note: Patient will increase L correctional substance abuse counselor strength (4lbs) to 60 lbs or more in order to open pill bottles with greater ease x12 weeks Patient will increase L lateral pinch (3.5), L tip pinch (2.5), L 3 jaw pinch (2.5) by 5 lbs each in order for greater ease with typing x12 weeks. 06/18/2019 L correctional substance abuse counselor- 20 lbs L lateral pinch- 6.2 Tip [...] documented as of this encounter Care Teams Group Chief Operator Relationship Specialty Start Date End Date Madhav Mcfadden MD [address] [place] [address] PCP - General Family Medicine 01/16/22 Cathleen Allan MD Urology 09/15/16 Pete Hester MD [address] [place] [address] Surgery, Orthopedic 08/15/19 Pati Armendariz, PhD [address] [place] [address] Clinical Psychologist Psychology 09/16/21 Romero Pryor MD [address] [place] [address] Cardiovascular Disease 02/05/23 Prerna Paulino MD [address] [place] [address] Internal Medicine 07/04/24 Magda Davis MD [address] [place] [address] Gastroenterology 07/04/24 Ifeoma Hanson MD [address] [place], [place] [address] Endocrinology 07/04/24 Ifeoma Hanson MD [address] [place] [address] Endocrinology 11/26/24 documented as of this encounter
--- OUTSIDE RECORDS SUMMARY | 2025-07-24 20:32 | XMS_ITS | Encounter Summary ---
Author Organization [facility] Address [address] [place] [address] Care Team Providers Care Shift Stacker Name Role Phone Madhav Mcfadden MD Primary Care Provider [phone] Encounter Details Date Type Department Care Team ([facility] st Contact Info) Description 01/13/2025 Scanned Document [facility] CENTER SCHEDULING [address] [place], [place] [phone] Provider, Historical . Social History Tobacco Use Types Packs/Day Years [...] hurting or threatening you in anyway? no 01/02/2025 Physical Indicators of Abuse No evidence of phys ical abuse 01/02/2025 Sex and Gender Information Value Date Recorded Sex Assigned at Male 06/16/2025 10:30 AM EST Legal Sex Male 8:50 PM EST Gender Identity Male 06/16/2025 10:30 AM EST Sexual Orientation Not on file documented as of this encounter Plan of Treatment Upcoming Encounters Date Type Department Care Team (Late st Contact Info) Description 08/05/2025 1:40 PM EST [facility]ointment [facility] [address] [place] [address]. [place] [address] Bal Villavicencio MD Corporate [facility] B-[address] [place] [phone] 08/11/2025 4:00 PM EST Evaluation [facility] [address] [place] [address] Kerry Kaba MD 200 [facility] 204 [place] [phone] 08/17/2025 1:00 PM EST Office Visit [facility] at [address] [place] [address] Petrona Nesbitt PA [address] [place] [phone] 09/04/2025 10:15 AM EST Follow Up [facility] at [address] 6th [place] [address] Carlos Lo MD [address] [place] [phone] 10/20/2025 4:00 PM EDT Telemedicine [facility] 40 [facility] 40 [facility] 1A [place] [address] Prerna Paulino MD [address] [phone] 10/29/2025 9:00 AM EDT Office Visit [facility] [address] [place] [address] Petrona Nesbitt PA [address] [place] [phone] 12/10/2025 10:00 AM EDT Office Visit [facility] [address] [place] [address], [place] [address] Petrona Nesbitt PA [address] [place] [phone] 01/21/2026 10:00 AM EDT Office Visit [facility] [address] [place] [address], [place] [address] Petrona Nesbitt PA [address] [place] [phone] 03/04/2026 10:00 AM EDT Office Visit [facility] [address] [place] [address] Petrnoa Nesbitt PA [address] [place] [phone] 04/15/2026 10:30 AM EDT Office Visit [facility] [address] [place] [address] Ebonie Crowley MD [address] [place] [phone] documented as of this encounter Procedures Procedure Name Priority Date/Time Associated Diagnosis Comments LAB SCAN Routine 01/09/2025 8:05 PM EDT documented in this encounter Results * Lab Scan (01/09/2025 8:05 PM EDT) us Historical Provider LAB BLOOD ORDERABLES Final R esult documented in this encounter Visit Diagnoses Not on filedocumented in this encounter Additional Health Concerns Assessment Noted Time PHQ-9 Depression Total Score: 0 08/18/19 24 6:00 PM EST documented as of this encounter Care Teams Shift Stacker Relationship Specialty Start Date End Date Madhav Mcfadden MD [address] [place] [address] PCP - General Family Medicine 08/20/23 documented as of this encounter
--- OUTSIDE RECORDS SUMMARY | 2025-07-24 20:32 | XMS_ITS | Encounter Summary ---
Author Organization [facility] Address [address] [place] [address] Care Team Providers Care Theater Projectionist Name Role Phone Jacqueline Kay MD Primary Care Provider Unava ilable Jacqueline Kay MD Primary Care Provider Unava ilable Jacqueline Kay MD Unavailable Unavailable Jacqueline Kay MD Unavailable Unavailable Stephanie Darnell I MANAGER CONCRETE Unavailable [phone] Stephanie Darnell I MANAGER CONCRETE Unavailable [phone] Cathleen Allan MD Unavailable [phone] Pete Hester MD Unavailable [phone] Pati Armendariz PhD Unavailabl e Madhav Mcfadden MD Primary Care Provider [phone] Jacqueline Kay MD Unavailable Unavailable Yasmine Cohen RN Unavailable Unavaila ble Bre Almaguer RN Unavailable [phone] Madhav Mcfadden MD Unavailable [phone] Romero Pryor MD Unavailable [phone] Prerna Paulino MD Unavailable [phone] Magda Davis MD Unavailable [phone] Ifeoma Hanson MD Unavailable Ifeoma Hanson MD Unavailable [phone] Encounter Details Date Type Department Care Team (Late st Contact Info) Description 06/02/2019 Scanned Document [facility] Keron [address] [place] [address] [place] [address] Provider, Generic Social History Tobacco Use Types [...] Description 2025 8:00 AM EST Office Visit [address] [phone] Madhav Mcfadden MD [address] [place] [address] 09/01/2025 9:20 AM EST Office Visit [id number] [address] [address] Reji Mi, DO [address] [place] [phone] 09/29/2025 9:20 AM EST Office Visit [id number] [address] [phone] Reji Mi, DO [address] [place] [phone] 10/27/2025 9:40 AM EDT Office Visit [id number] [address] [place] [address] ShmuelReji silver, DO [address], [place] [phone] 12/01/2025 9:40 AM EDT Office Visit [id number] [address] [place] [address] ShmuelReji Joni, DO [address], [place] [phone] 02/03/2026 9:30 AM EDT Telemedicine [facility] Endocrinology [place] [address] [place] [phone] Ifeoma Hanson MD [address] [place] [phone] documented as of this encounter Goals Goal [...] and he was provided today with a [facility] HEP., ongoing OT LTG 2 Occupational Therapy No Maida Benito, OT Note: Patient will decrease Quick Dash score from 79.5 to 10 or less in order to complete functional tasks with greater ease x 12 weeks 06/18/2019 Scored the same today, ongoing OT LTG 3 Occupational Therapy No Maida Benito, DON Note: Patient will increase L air bag buffer strength (4lbs) to 60 lbs or more in order to open pill bottles with greater ease x12 weeks Patient will increase L lateral pinch (3.5), L tip pinch (2.5), L 3 jaw pinch (2.5) by 5 lbs each in order for greater ease with typing x12 weeks. 06/18/2019 L air bag buffer- 20 lbs L lateral pinch- 6.2 Tip [...] documented as of this encounter Care Teams Theater Projectionist Relationship Specialty Start Date End Date Jacqueline Kay MD PCP - General Family Medicine 11/01/17 04/28/21 Jacqueline Kay MD PCP - General Family Medicine 04/29/21 01/15/22 Jacqueline Kay MD PCP - [employer] Attributed 06/06/20 07/05/20 Stephanie Darnell I, MANAGER CONCRETE [address] [address] PCP - [employer] Attributed 07/06/20 10/03/20 Stephanie Darnell I, MANAGER CONCRETE [address] [address] PCP - [employer] Attributed 05/06/21 11/03/21 Madhav Mcfadden MD [address] [place] [address] PCP - General Family Medicine 01/16/22 Jacqueline Kay MD PCP - [employer] Attributed 11/04/21 07/05/22 Madhav Mcfadden MD [address] [place] [address] PCP - [employer] Attributed 07/06/22 07/05/23 Jacqueline Kay MD Family Medicine 04/29/21 03/30/22 Cathleen Allan MD [address] [address] Urology 09/15/16 Pete Hester MD [address] [place], [place] [phone] Surgery, Orthopedic 08/15/19 Anthony Gallegos, Pati Medina, PhD [address] [place] [address] Clinical Psychologist Psychology 09/16/21 Yasmine Cohen, RN [address] [place] [address] [facility] Community Newspaper Peddler 07/21/22 08/26/23 Bre Almaguer, RN 1290 [facility] 4 [place] [address] [facility] Community Newspaper Peddler 10/03/22 11/13/22 Romero Pryor MD [address] [place] [address] Cardiovascular Disease 02/05/23 Prerna Paulino MD [address] [place] [address] [address] [place] [address] Internal Medicine 07/04/24 Magda Davis MD [address] [place] [address] Gastroenterology 07/04/24 Ifeoma Hanson MD [address] [place] [address] Endocrinology 07/04/24 Ifeoma Hanson MD [address] [place] [address] Endocrinology 11/26/24 documented as of this encounter
--- OUTSIDE RECORDS SUMMARY | 2025-07-24 20:32 | XMS_ITS | Encounter Summary ---
Author Organization [facility] Address [address] [place] [address] Care Team Providers Care Transferrer Name Role Phone Jacqueline Kay MD Primary Care Provider Unava ilable Jacqueline Kay MD Primary Care Provider Unava ilable Jacqueline Kay MD Unavailable Unavailable Jacqueline Kay MD Unavailable Unavailable Stephanie Darnell I MONTESSORI LEAD TEACHER Unavailable [phone] Stephanie Darnell I MONTESSORI LEAD TEACHER Unavailable [phone] Cathleen Allan MD Unavailable [phone] Pete Hester MD Unavailable [phone] Pati Armendariz PhD Unavailabl e Madhav Mcfadden MD Primary Care Provider [phone] Jacqueline Kay MD Unavailable Unavailable Yasmine Cohen RN Unavailable Unavaila ble Bre Almaguer RN Unavailable [phone] Madhav Mcfadden MD Unavailable [phone] Romero Pyror MD Unavailable [phone] Prerna Paulino MD Unavailable [phone] Magda Davis MD Unavailable [phone] Ifeoma Hanson MD Unavailable Ifeoma Hanson MD Unavailable Encounter Details Date Type Department Care Team (Late st Contact Info) Description 05/15/2018 Scanned Document [facility] [address] [place] [address] [place] [address] Jacqueline Kay MD Social History Tobacco Use [...] Description 2025 8:00 AM EST Office Visit [address] [phone] Madhav Mcfadden MD [address] [place] [address] 09/01/2025 9:20 AM EST Office Visit [id number] [address] [address] Reji Mi, DO [address] [place] [phone] 09/29/2025 9:20 AM EST Office Visit [id number] [address] [address] Reji Mi, DO [address] [place] [phone] 10/27/2025 9:40 AM EDT Office Visit [id number] [address] [place] [phone] ShmuelReji Joni, DO [address] [phone] 12/01/2025 9:40 AM EDT Office Visit [id number] [address] [place] [address] ShmuelReji Joni, DO [address] [phone] 02/03/2026 9:30 AM EDT Telemedicine [facility] Endocrinology [address] [phone] Ifeoma Hanson MD [address] [place] [address] documented as of this encounter Visit Diagnoses Not on filedocumented in this encounter Additional Health Concerns Infection Onset Date Last Indicated Resolved Time R/O Gastrointestinal Infection 10/31/2022 10/31/2022 11/02/2022 11:58 AM EDT R/O C. Difficile 10/31/2022 10/31/2022 11/02/2022 11:58 AM EDT documented as of this encounter Care Teams Transferrer Relationship Specialty Start Date End Date Jacqueline Kay MD PCP - General Family Medicine 11/01/17 04/28/21 Jacqueline Kay MD PCP - General Family Medicine 04/29/21 01/15/22 Jacqueline Kay MD PCP - [employer] Attributed 06/06/20 07/05/20 Stephanie Darnell APRN [address] [phone] PCP - [employer] Attributed 07/06/20 10/03/20 Stephanie Darnell APRN [address] [place] [phone] PCP - [employer] Attributed 05/06/21 11/03/21 Madhav Mcfadden MD [address] [place] [address] PCP - General Family Medicine 01/16/22 Jacqueline Kay MD PCP - [employer] Attributed 11/04/21 07/05/22 Madhav Mcfadden MD [address] [place] [phone] (Work) PCP - [employer] Attributed 07/06/22 07/05/23 Jacqueline Kay MD Family Medicine 04/29/21 03/30/22 Cathleen Allan MD [address] [place] [phone] Urology 09/15/16 Pete Hester MD [address] [place], [place] [phone] Surgery, Orthopedic 08/15/19 Pati Armendariz, PhD [address] [place], [place] [phone] Clinical Psychologist Psychology 09/16/21 Yasmine Cohen, RN [address] [place] [address] [facility] Community Machinist General 07/21/22 08/26/23 Bre Almaguer, RN [address] [place] [facility] 4 [place] [address] [facility] Community Machinist General 10/03/22 11/13/22 Romero Pryor MD [address] [place] [address] Cardiovascular Disease 02/05/23 Prerna Paulino MD [address] [place] [address] Internal Medicine 07/04/24 Magda Davis MD [address] [place], [place] [phone] Gastroenterology 07/04/24 Ifeoma Hanson MD [address] [place] [address] Endocrinology 07/04/24 Ifeoma Hanson MD [address] [place] [address] Endocrinology 11/26/24 documented as of this encounter
--- OUTSIDE RECORDS SUMMARY | 2025-07-24 20:32 | XMS_ITS | Encounter Summary ---
Author Organization [facility] Address [address] [place] [address] Care Team Providers Care Gate Guard Name Role Phone Cathleen Allan MD Unavailable [phone] Pete Hester MD Unavailable [phone] Pati Armendariz PhD Unavailabl e Madhav Mcfadden MD Primary Care Provider [phone] Romero Pryor MD Unavailable [phone] Prerna Paulino MD Unavailable [phone] Magda Davis MD Unavailable [phone] Ifeoma Hanson MD Unavailable [phone] Ifeoma Hanson MD Unavailable [phone] Encounter Details Date Type Department Care Team (Late st Contact Info) Description 09/22/2024 Scanned Document [facility] 80 [facility] [address] [place] [address] Provider, Generic Social History Tobacco Use Types Packs/Day Years Used Date Smoking Tobacco: Never Passive Smoke Exposure: Past Smokeless Tobacco: Never Alcohol Use Standard Drinks/Week Comments Not Currently 0 (1 standard drink = 0.6 oz pur e alcohol) [facility] Utilities Answer Date Recorded In the past 12 months has [employer], gas, oil, or water company threatened to shut off services in your home? No 09/18/2024 Social Connection and Isolation Panel Answer Date Recorded In a typical week, how many times do you talk on the phone with family, friends, or neighbors? More than three times a week 09/18/2024 Frequency of Social Gatherin gs with Friends and Family Not on file 09/18/2024 Attends Islam Services Not on file 09/18 Active Member [...] Answer Date Recorded PHQ-2 Total Score 5 09/24/2024 Hunger Vital Sign Answer Date Recorded Within [...] place to sleep or slept in a senior care (including now)? No 04/02/2023 Housing Stability Vital Sign Answer Alden e Recorded In the last 12 months, was t here a time when you were not able to pay the mortgage or rent on time? No 09/18/2024 In the past 12 months, how m any times have you moved where you were living? 0 09/18/2024 At any time in the past 12 m [facility], were you homeless or living in a senior care (including now)? No 09/18/2024 Physical Activity Answer [...] AM EST documented as of this encounter Functional Status * AUDIT-C Total Score - Male Answer Date of Assessment Author 0 09/24/2024 11:44 AM Pati Munguia, PhD * AUDIT Alcohol Screening Question Answer Date of Assessment Author AUDIT-C Score 0 09/24/2024 11:44 AM Pati Munguia, PhD Q9: Have you or someone else been injured as a result of your drinking? 0 09/24/2024 11:44 AM Pati Munguia, PhD Q10: Has a relative, friend, doctor, or another health professional expressed concern about your drinking or suggested you cut down? 0 09/24/2024 11:44 AM Pati Munguia, PhD AUDIT Total Score 0 09/24/2024 11: 44 AM Pati Munguia, PhD Q1: How often do you have a drink containing alcohol? Never 09/24/2024 11:44 AM Pati Munguia, PhD Q2: How many drinks containing alcohol do you have on a typical day when you are drinking? Patient does not drink 09/24/2024 11:44 AM Pati Munguia, PhD Q3: How often do you have six or more drinks on one occasion? Never 09/24/2024 11:44 AM Pati Munguia, PhD * Question Answer Date of Assessment Author Feeling nervous, anxious, or on edge 2 09/24/2024 11:42 AM Pati Fitzpatrick PhD Not being able to stop or control worrying 2 09/24/2024 11:42 AM Pati Fitzpatrick, Worrying too much about different things 1 09/24/2024 11:42 AM Pati Fitzpatrick, Trouble relaxing 2 09/24/2024 11:42 AM Pati Munguia, Being so restless that it is hard to sit still 1 09/24/2024 11:42 AM Pati Fitzpatrick PhD Becoming easily annoyed or irritable 3 09/24/2024 11:42 AM Pati Fitzpatrick, Feeling afraid as if something awful might happen 2 09/24/2024 11:42 AM Pati Zavala, PhD * Over the past 2 weeks, how often have you been bothered by any of the following problems? Question Answer Date of Assessment Author Patient Health Questionnaire-2 Score 5 09/24/2024 11:43 AM Pati Levy, PhD * Question Answer Date of Assessment Author Patient Health Questionnaire-9 Score 12 09/24/2024 11:43 AM Pati Levy, PhD * Over the last 2 weeks, how often have you been bothered by any of the following problems? Question Answer Date of Assessment Author GUSTAVO-7 Total Score 13 09/24/2024 11:42 AM Pati Munguia, PhD * Primary Care PTSD Screen for DSM-5 (PC-PTSD-5) Question Answer Date of Assessment Author Have you ever experienced this kind of event? Yes 09/24/2024 11:44 AM Pati Fitzpatrick, * In the past month, have you... Question Answer Date of Assessment Author Had nightmares about the events or thought about the events when you did not want to? Yes 09/24/2024 11:44 AM Pati Fitzpatrick PhD Tried hard not to think about the events or went out of your way to avoid situations that reminded you of the events? Yes 09/24/2024 11:44 AM Pati Fitzpatrick PhD Been constantly on guard, watchful, or easily startled? Yes 09/24/2024 11:44 AM Pati Fitzpatrick PhD [place] numb or detached from people, activities, or your surroundings? No 09/24/2024 11:44 AM Pati Fitzpatrick PhD [place] guilty or unable to stop blaming yourself or others for the events or any problems the events may have caused? Yes 09/24/2024 11:44 AM Pati Fitzpatrick, * Primary Care PTSD Score Question Answer Date of Assessment Author Primary Care PTSD Total Score 4 09/24/2024 11:44 AM Pati Fitzpatrick PhD * Question Answer Date of Assessment Author PHQ-2 Total Score 5 09/24/2024 11: 43 AM Pati Munguia, Little interest or pleasure in doing things Nearly every day 09/24/2024 11:43 AM Pati Munguia PhD Feeling down, depressed, or hopeless More than half the days 09/24/2024 11:43 AM Pati Munguia PhD Trouble falling or staying asleep, or sleeping too much More than half the days 09/24/2024 11:43 AM Pati Munguia PhD Feeling tired or having little energy Nearly every day 09/24/2024 11:43 AM Pati Munguia, Poor appetite or overeating Not at all 09/24/2024 11:43 AM Pati Munguia, Feeling bad about yourself - or that you are a failure or have let yourself or your family down Several days 09/24/2024 11:43 AM Pati Munguia, PhD Trouble concentrating on things, such as reading the newspaper or watching television Not at all 09/24/2024 11:43 AM Pati Munguia, PhD Moving or speaking so slowly that other people could have noticed? Or the opposite - being so fidgety or restless that you have been moving around a lot more than usual. Several days 09/24/2024 11:43 AM Pati Munguia, PhD Thoughts that you would be better off or hurting yourself in some way Not at all 09/24/2024 11:43 AM Pati Munguia, PHQ-9 Total Score 12 09/24/2024 11: 43 AM Pati Munguia PhD documented as of this encounter Plan of Treatment Upcoming Encounters Date Type Department Care Team (Late st Contact Info) Description 2025 8:00 AM EST Office Visit [address] [phone] Madhav Mcfadden MD [address] [place] [address] 09/01/2025 9:20 AM EST Office Visit [id number] [address] [phone] Reji Mi, DO [address] [phone] 09/29/2025 9:20 AM EST Office Visit [id number] [address] [address] Reji Mi, DO [address] [phone] 10/27/2025 9:40 AM EDT Office Visit [id number] [address] [place] [address] Reji Mi, DO [address] [phone] 12/01/2025 9:40 AM EDT Office Visit [id number] [address] [place] [phone] ShmuelReji Joni, DO [address], [place] [phone] 02/03/2026 9:30 AM EDT Telemedicine [facility] Endocrinology [address] [phone] Ifeoma Hanson MD [address] [place] [address] documented as of this encounter Goals Goal [...] and he was provided today with a [facility] HEP., ongoing OT LTG 2 Occupational Therapy No Maida Benito, OT Note: Patient will decrease Quick Dash score from 79.5 to 10 or less in order to complete functional tasks with greater ease x 12 weeks 06/18/2019 Scored the same today, ongoing OT LTG 3 Occupational Therapy No Maida Benito, OT Note: Patient will increase L air conditioning specialist strength (4lbs) to 60 lbs or more in order to open pill bottles with greater ease x12 weeks Patient will increase L lateral pinch (3.5), L tip pinch (2.5), L 3 jaw pinch (2.5) by 5 lbs each in order for greater ease with typing x12 weeks. 06/18/2019 L air conditioning specialist- 20 lbs L lateral pinch- 6.2 [...] on filedocumented in this encounter Care Teams Gate Guard Relationship Specialty Start Date End Date Madhav Mcfadden MD [address] [place] [address] PCP - General Family Medicine 01/16/22 Cathleen Allan MD Urology 09/15/16 Pete Hester MD [address] [place] [address] Surgery, Orthopedic 08/15/19 Pati Armendariz, PhD [address] [place] [address] Clinical Psychologist Psychology 09/16/21 Romero Pryor MD [address] [place] [address] Cardiovascular Disease 02/05/23 Prerna Paulino MD [address] [place] [address] Internal Medicine 07/04/24 Magda Dvais MD [address] [employer] [phone] Gastroenterology 07/04/24 Ifeoma Hanson MD [address] [place], [place] [phone] Endocrinology 07/04/24 Ifeoma Hanson MD [address] [place], [place] [phone] Endocrinology 11/26/24 documented as of this encounter
--- OUTSIDE RECORDS SUMMARY | 2025-07-24 20:32 | XMS_ITS | Encounter Summary ---
Author Organization [facility] Address [address] [place] [address] Care Team Providers Care Law Reporter Name Role Phone Cathleen Allan MD Unavailable [phone] Pete Hester MD Unavailable [phone] Pati Armendariz PhD Unavailabl e Madhav Mcfadden MD Primary Care Provider [phone] Romero Pryor MD Unavailable [phone] Prerna Paulino MD Unavailable [phone] Magda Davis MD Unavailable [phone] Ifeoma Hanson MD Unavailable [phone] Ifeoma Hanson MD Unavailable [phone] Encounter Details Date Type Department Care Team (Late st Contact Info) Description 10/03/2024 Scanned Document [facility] Department of Allergy [place] [address] [place] [phone] Lori Enciso MD [address] [place] [address] Social History Tobacco Use Types Packs/Day Years Used Date Smoking Tobacco: Never Passive Smoke Exposure: Past Smokeless Tobacco: Never Alcohol Use Standard Drinks/Week Comments Not Currently 0 (1 standard drink = 0.6 oz pur e alcohol) [facility] Utilities Answer Date Recorded In [...] and Family Not on file 09/18/2024 Attends [employer] Not on file 09/18 Active Member [...] time in the past 12 m [facility], were you homeless or living in [...] Description 2025 8:00 AM EST Office Visit [address] [phone] Madhav Mcfadden MD [address] [place] [address] 09/01/2025 9:20 AM EST Office Visit MG FRIDA BOLIVAR [id number] [address] [phone] Reji Mi DO [address] [phone] 09/29/2025 9:20 AM EST Office Visit MG PAIN MGMT [id number] [address] [place] [phone] ShmuelReji Joni, DO [address] [address] 10/27/2025 9:40 AM EDT Office Visit MG PAIN MGMT [id number] [address] [place] [address] Shmuel, Reji Joni, DO [address] [place] [address] 12/01/2025 9:40 AM EDT Office Visit MG PAIN MGMT [id number] [address] [phone] ShmuelReji Jnoi, DO [address] [place] [address] 02/03/2026 9:30 AM EDT Telemedicine [facility] Endocrinology [address] [phone] Ifeoma Hanson MD [address] [place] [address] documented as of this encounter Goals Goal [...] and he was provided today with a [facility] HEP., ongoing OT LTG 2 Occupational Therapy No Maida Benito, OT Note: Patient will decrease Quick Dash score from 79.5 to 10 or less in order to complete functional tasks with greater ease x 12 weeks 06/18/2019 Scored the same today, ongoing OT LTG 3 Occupational Therapy No Maida Benito, OT Note: Patient will increase L tobacco curer strength (4lbs) to 60 lbs or more in order to open pill bottles with greater ease x12 weeks Patient will increase L lateral pinch (3.5), L tip pinch (2.5), L 3 jaw pinch (2.5) by 5 lbs each in order for greater ease with typing x12 weeks. 06/18/2019 L tobacco curer- 20 lbs L lateral pinch- 6.2 Tip [...] Armendariz, PhD documented as of this encounter Procedures Procedure Name Priority Date/Time Associated Diagnosis Comments LAB RESULT 10/03/2024 12:06 PM EST documented in this encounter Results * LAB RESULT (10/03/2024 12:06 PM EST) us Lori Enciso MD HX AMB PROCEDURES Final Res ult documented in this encounter Visit Diagnoses Not on filedocumented in this encounter Additional Health Concerns Active Problems Noted Date Diagnosed Date Pain 09/26/2024 documented as of this encounter Care Teams Law Reporter Relationship Specialty Start Date End Date Madhav Mcfadden MD [facility] [phone] PCP - General Family Medicine 01/16/22 Cathleen Allan MD Urology 09/15/16 Pete Hester MD [address] [place] [address] Surgery, Orthopedic 08/15/19 Pati Armendariz, PhD [address] [place] [address] Clinical Psychologist Psychology 09/16/21 Romero Pryor MD [address] [place] [address] Cardiovascular Disease 02/05/23 Prerna Paulino MD [address] [place] [address] Internal Medicine 07/04/24 Magda Davis MD [address] [place] [address] Gastroenterology 07/04/24 Ifeoma Hanson MD [address] [place] [address] Endocrinology 07/04/24 Ifeoma Hanson MD [address] [place] [address] Endocrinology 11/26/24 documented as of this encounter
--- OUTSIDE RECORDS SUMMARY | 2025-07-24 20:32 | XMS_ITS | Encounter Summary ---
Author Organization [facility] Address [address] [place] [address] Care Team Providers Care Satellite Installation Technician Name Role Phone Cathleen Allan MD Unavailable [phone] Pete Hester MD Unavailable [phone] Pati Armendariz PhD Unavailabl e Madhav Mcfadden MD Primary Care Provider [phone] Romero Pryor MD Unavailable [phone] Prerna Paulino MD Unavailable [phone] Magda Davis MD Unavailable [phone] Ifeoma Hanson MD Unavailable [phone] Ifeoma Hanson MD Unavailable + [phone] Encounter Details Date Type Department Care Team (Late st Contact Info) Description 07/10/2024 Scanned Document [facility] 80 [facility] [address] [place] [address] Provider, Generic Social History Tobacco [...] place to sleep or slept in a skilled nursing (including now)? No 04/02/2023 Physical Activity Answer [...] Description 2025 8:00 AM EST Office Visit [address] [phone] Madhav Mcfadden MD [address] [place] [address] 09/01/2025 9:20 AM EST Office Visit MG PAIN MGMT [id number] [address] [phone] Reji Mi, DO [address] [place] [address] 09/29/2025 9:20 AM EST Office Visit MG PAIN MGMT [id number] [address] [phone] Reji Mi, DO [address] [place] [address] 10/27/2025 9:40 AM EDT Office Visit MG PAIN MGMT [id number] [address] [phone] Reji Mi, DO [address] [place] [address] 12/01/2025 9:40 AM EDT Office Visit MG PAIN MGMT [id number] [address] [phone] Reji Mi, DO [address] [place] [address] 02/03/2026 9:30 AM EDT Telemedicine [facility] Endocrinology [address] [place] [address] Ifeoma Hanson MD [address] [place] [address] documented as of this encounter Goals Goal [...] and he was provided today with a [facility] HE[facility]., ongoing OT LTG 2 Occupational Therapy No Maida Benito, OT Note: Patient will decrease Quick Dash score from 79.5 to 10 or less in order to complete functional tasks with greater ease x 12 weeks 06/18/2019 Scored the same today, ongoing OT LTG 3 Occupational Therapy No Maida Benito, OT Note: Patient will increase L replenishment buyer strength (4lbs) to 60 lbs or more in order to open pill bottles with greater ease x12 weeks Patient will increase L lateral pinch (3.5), L tip pinch (2.5), L 3 jaw pinch (2.5) by 5 lbs each in order for greater ease with typing x12 weeks. 06/18/2019 L replenishment buyer- 20 lbs L lateral pinch- 6.2 Tip [...] on filedocumented in this encounter Care Teams Satellite Installation Technician Relationship Specialty Start Date End Date Madhav Mcfadden MD [address] [place] [address] PCP - General Family Medicine 01/16/22 Cathleen Allan MD Urology 09/15/16 Pete Hester MD [address] [address] Surgery, Orthopedic 08/15/19 Pati Armendariz, PhD [address] [place] [address] Clinical Psychologist Psychology 09/16/21 Romero Pryor MD [address] [place] [address] [place] [address] Cardiovascular Disease 02/05/23 Prerna Paulino MD [address] [place] [address] Internal Medicine 07/04/24 Magda Davis MD [address] [place] [address] Gastroenterology 07/04/24 Ifeoma Hanson MD [address] [place] [address] Endocrinology 07/04/24 Ifeoma Hanson MD [address] [place] [address] Endocrinology 11/26/24 documented as of this encounter
--- OUTSIDE RECORDS SUMMARY | 2025-07-24 20:32 | XMS_ITS | Encounter Summary ---
Author Organization [facility] Address [address] [place] [address] Care Team Providers Care Bag Sorter Name Role Phone Jacqueline Kay MD Primary Care Provider Unava ilable Jacqueline Kay MD Primary Care Provider Unava ilable Jacqueline Kay MD Unavailable Unavailable Jacqueline Kay MD Unavailable Unavailable Stephanie Darnell I NURSING EDUCATION CONSULTANT Unavailable [phone] Stephanie Darnell I NURSING EDUCATION CONSULTANT Unavailable [phone] Cathleen Allan MD Unavailable [phone] Pete Hester MD Unavailable [phone] Pati Armendariz PhD Unavailabl e Madhav Mcfadden MD Primary Care Provider [phone] Jacqueline Kay MD Unavailable Unavailable Yasmine Cohen RN Unavailable Unavaila ble Bre Almaguer RN Unavailable [phone] Madhav Mcfadden MD Unavailable [phone] Romero Pryor MD Unavailable [phone] Prerna Paulino MD Unavailable [phone] Magda Davis MD Unavailable [phone] Ifeoma Hanson MD Unavailable Ifeoma Hanson MD Unavailable [phone] Encounter Details Date Type Department Care Team (Late st Contact Info) Description 07/10/2018 Scanned Document [facility] Keron [address] [place] [address] [place] [address] Jacqueline Kay MD Social History Tobacco Use [...] 2025 8:00 AM EST Office Visit [address] [phone] Madhav Mcfadden MD [address] [place] [address] 09/01/2025 9:20 AM EST Office Visit MG PAIN MGMT [id number] [address] [address] Reji Mi, DO [address] [place] [phone] 09/29/2025 9:20 AM EST Office Visit MG PAIN MGMT [id number] [address] [address] Reji Mi, DO [address] [place] [address] [phone] 10/27/2025 9:40 AM EDT Office Visit MG PAIN MGMT [id number] [address] [place] [phone] ShmuelReji Joni, DO [address] [phone] 12/01/2025 9:40 AM EDT Office Visit MG PAIN MGMT [id number] [address] [place] [address] ShmuelReji Joni, DO [address] [phone] 02/03/2026 9:30 AM EDT Telemedicine [facility] Endocrinology [address] [phone] Ifeoma Hanson MD [address] [place] [address] documented as of this encounter Visit Diagnoses Not on filedocumented in this encounter Additional Health Concerns Infection Onset Date Last Indicated Resolved Time R/O Gastrointestinal Infection 10/31/2022 10/31/2022 11/02/2022 11:58 AM EDT R/O C. Difficile 10/31/2022 10/31/2022 11/02/2022 11:58 AM EDT documented as of this encounter Care Teams Bag Sorter Relationship Specialty Start Date End Date Jacqueline Kay MD PCP - General Family Medicine 11/01/17 04/28/21 Jacqueline Kya MD PCP - General Family Medicine 04/29/21 01/15/22 Jacqueline Kay MD PCP - [employer] Attributed 06/06/20 07/05/20 Stephanie Darnell APRN [address] [phone] PCP - [employer] Attributed 07/06/20 10/03/20 Stephanie Darnlel APRN [address] [place] [phone] PCP - [employer] Commercial Attributed 05/06/21 11/03/21 Madhav Mcfadden MD [address] [place] [address] PCP - General Family Medicine 01/16/22 Jacqueline Kay MD PCP - [employer] Commercial Attributed 11/04/21 07/05/22 Madhav Mcfadden MD [address] [place] [phone] (Work) PCP - [employer] Commercial Attributed 07/06/22 07/05/23 Jacqueline Kay MD Family Medicine 04/29/21 03/30/22 Cathleen Allan MD [address] [place] [phone] Urology 09/15/16 Pete Hester MD [address] [place], [place] [phone] Surgery, Orthopedic 08/15/19 Pati Armendariz, PhD [address] [place], [place] [phone] Clinical Psychologist Psychology 09/16/21 Yasmine Cohen, RN [address] [place] [address] [facility] Community Critical Care Nurse Specialist 07/21/22 08/26/23 Bre Almaguer, RN [address] [facility] 4 [place] [address] [facility] Community Critical Care Nurse Specialist 10/03/22 11/13/22 Romero Pryor MD [address] [place] [address] Cardiovascular Disease 02/05/23 Prerna Paulino MD [address] [place] [address] Internal Medicine 07/04/24 Magda Davis MD [address] [place], [place] [phone] Gastroenterology 07/04/24 Ifeoma Hanson MD [address] [place] [address] Endocrinology 07/04/24 Ifeoma Hanson MD [address] [place] [address] Endocrinology 11/26/24 documented as of this encounter
--- OUTSIDE RECORDS SUMMARY | 2025-07-24 20:32 | XMS_ITS | Encounter Summary ---
Author Organization [facility] Address [address] [place] [address] Care Team Providers Care Technician Assistant Name Role Phone Cathleen Allan MD Unavailable [phone] Pete Hester MD Unavailable [phone] Pati Armendariz PhD Unavailabl e Madhav Mcfadden MD Primary Care Provider [phone] Romero Pryor MD Unavailable [phone] Prerna Paulino MD Unavailable [phone] Magda Davis MD Unavailable [phone] Ifeoma Hanson MD Unavailable [phone] Ifeoma Hanson MD Unavailable + [phone] Encounter Details Date Type Department Care Team (Late st Contact Info) Description 12/20/2024 Scanned Document [facility] 80 [facility] [address] [place] [address] Provider, Generic Social History Tobacco Use Types Packs/Day Years Used Date Smoking Tobacco: Never Passive Smoke Exposure: Past Smokeless Tobacco: Never Alcohol Use Standard Drinks/Week Comments Not Currently 0 (1 standard drink = 0.6 oz pur e alcohol) [facility] Utilities Answer Date Recorded In the past 12 months has [employer], gas, oil, or water company threatened to shut off services in your home? No 09/18/2024 Social Connection and Isolation Panel Answer Date Recorded In a typical week, how many times do you talk on the phone with family, friends, or neighbors? More than three times a week 09/18/2024 Frequency of Social Gatherin gs with Friends and Family Not on file 09/18/2024 Attends Denominational Services Not on file 09/18 Active Member [...] place to sleep or slept in a usp (including now)? No 04/02/2023 Housing Stability Vital Sign Answer Alden e Recorded In the last 12 months, was t here a time when you were not able to pay the mortgage or rent on time? No 09/18/2024 In the past 12 months, how m any times have you moved where you were living? 0 09/18/2024 At any time in the past 12 m [facility], were you homeless or living in a usp (including now)? No 09/18/2024 Physical Activity Answer [...] Description 2025 8:00 AM EST Office Visit [address] [phone] Madhav Mcfadden MD [address] [place] [address] 09/01/2025 9:20 AM EST Office Visit MG PAIN MGMT [id number] [address] [address] Reji Mi DO [address] [address] 09/29/2025 9:20 AM EST Office Visit MG PAIN MGMT [id number] [address] [address] Reji Mi, DO [address], [place] [phone] 10/27/2025 9:40 AM EDT Office Visit MG PAIN MGMT [id number] [address] [place] [phone] ShmuelReji Joni, DO [address] [place] [address] 12/01/2025 9:40 AM EDT Office Visit MG PAIN MGMT [id number] [address] [place] [phone] ShmuelReji silver Joni, DO [address], [place] [phone] 02/03/2026 9:30 AM EDT Telemedicine [facility] Endocrinology [address] [address] Ifeoma Hanson MD [address] [place] [address] [phone] documented as of this encounter Goals Goal [...] and he was provided today with a [facility] HEP., ongoing OT LTG 2 Occupational Therapy No Maida Benito, OT Note: Patient will decrease Quick Dash score from 79.5 to 10 or less in order to complete functional tasks with greater ease x 12 weeks 06/18/2019 Scored the same today, ongoing OT LTG 3 Occupational Therapy No Maida Benito, OT Note: Patient will increase L generation engineer strength (4lbs) to 60 lbs or more in order to open pill bottles with greater ease x12 weeks Patient will increase L lateral pinch (3.5), L tip pinch (2.5), L 3 jaw pinch (2.5) by 5 lbs each in order for greater ease with typing x12 weeks. 06/18/2019 L generation engineer- 20 lbs L lateral pinch- 6.2 Tip [...] documented as of this encounter Care Teams Technician Assistant Relationship Specialty Start Date End Date Madhav Mcfadden MD [address] [place] [address] PCP - General Family Medicine 01/16/22 Cathleen Allan MD Urology 09/15/16 Pete Hester MD [address] [place], [place] [phone] Surgery, Orthopedic 08/15/19 Pati Armendariz, PhD [address] [place] [address] Clinical Psychologist Psychology 09/16/21 Romero Pryor MD [address] [place] [address] Cardiovascular Disease 02/05/23 Prerna Paulino MD [address] [place] [address] Internal Medicine 07/04/24 Magda Davis MD [address] [place] [address] Gastroenterology 07/04/24 Ifeoma Hanson MD [address] [place], [place] [phone] Endocrinology 07/04/24 Ifeoma Hanson MD [address] [place] [address] Endocrinology 11/26/24 documented as of this encounter
--- OUTSIDE RECORDS SUMMARY | 2025-07-24 20:32 | XMS_ITS | Encounter Summary ---
Author Organization [facility] Address [address] [place] [address] Care Team Providers Care Figure Skater Name Role Phone Jacqueline Kay MD Primary Care Provider Unava ilable Jacqueline Kay MD Primary Care Provider Unava ilable Jacqueline Kay MD Unavailable Unavailable Jacqueline Kay MD Unavailable Unavailable Stephanie Darnell I TEAMCENTER CONSULTANT Unavailable [phone] Stephanie Darnell I TEAMCENTER CONSULTANT Unavailable [phone] Cathleen Allan MD Unavailable [phone] Pete Hester MD Unavailable [phone] Pati Armendariz PhD Unavailabl e Madhav Mcfadden MD Primary Care Provider [phone] Jacqueline Kay MD Unavailable Unavailable Yasmine Cohen RN Unavailable Unavaila ble Bre Almaguer RN Unavailable [phone] Madhav Mcfadden MD Unavailable [phone] Romero Pryor MD Unavailable [phone] Prerna Paulino MD Unavailable [phone] Magda Davis MD Unavailable [phone] Ifeoma Hanson MD Unavailable [phone] Ifeoma Hanson MD Unavailable Encounter Details Date Type Department Care Team (Late st Contact Info) Description 04/21/2019 Scanned Document [facility] Keron [address] [place] [address] [place] [address] Provider, Generic Social History Tobacco Use Types [...] Description 2025 8:00 AM EST Office Visit [address] [phone] Madhav Mcfadden MD [address] [place] [address] 09/01/2025 9:20 AM EST Office Visit MG PAIN MGMT [id number] [address] [address] Reji Mi, DO [address] [place] [address] [phone] 09/29/2025 9:20 AM EST Office Visit MG PAIN MGMT [id number] [address] [address] Reji Mi, DO [address] [place] [address] [phone] 10/27/2025 9:40 AM EDT Office Visit MG PAIN MGMT [id number] [address] [place] [phone] ShmuelRejiil, DO [address] [phone] 12/01/2025 9:40 AM EDT Office Visit MG PAIN MGMT [id number] [address] [place] [address] ShmuelReji Joni, DO [address] [phone] 02/03/2026 9:30 AM EDT Telemedicine [facility] Endocrinology [address] [phone] Ifeoma Hanson MD [address] [place] [address] documented as of this encounter Visit Diagnoses Not on filedocumented in this encounter Additional Health Concerns Infection Onset Date Last Indicated Resolved Time R/O Gastrointestinal Infection 10/31/2022 10/31/2022 11/02/2022 11:58 AM EDT R/O C. Difficile 10/31/2022 10/31/2022 11/02/2022 11:58 AM EDT documented as of this encounter Care Teams Figure Skater Relationship Specialty Start Date End Date Jacqueline Kay MD PCP - General Family Medicine 11/01/17 04/28/21 Jacqueline Kay MD PCP - General Family Medicine 04/29/21 01/15/22 Jacqueline Kay MD PCP - [employer] Commercial Attributed 06/06/20 07/05/20 Stephanie Darnell APRN [address] [phone] PCP - [employer] Commercial Attributed 07/06/20 10/03/20 Stephanie Darnell APRN [address] [place], [place] [phone] PCP - [employer] Commercial Attributed 05/06/21 11/03/21 Madhav Mcfadden MD [address] [place] [address] PCP - General Family Medicine 01/16/22 Jacqueline Kay MD PCP - [employer] Commercial Attributed 11/04/21 07/05/22 Madhav Mcfadden MD [address] [place] [phone] (Work) PCP - [employer] Commercial Attributed 07/06/22 07/05/23 Jacqueline Kay MD Family Medicine 04/29/21 03/30/22 Cathleen Allan MD [address] [place] [address] Urology 09/15/16 Pete Hester MD [address] [place], [place] [phone] Surgery, Orthopedic 08/15/19 Pati Armendariz, PhD [address] [place], [place] [phone] Clinical Psychologist Psychology 09/16/21 Yasmine Cohen, RN [address] [place] [address]444 [facility] Community Computer Training Specialist 07/21/22 08/26/23 Bre Almaguer, RN 1290 [facility] 4 [place] [address] [facility] Community Computer Training Specialist 10/03/22 11/13/22 Romero Pryor MD [address] [place] [address] Cardiovascular Disease 02/05/23 Prerna Paulino MD [address] [place] [address] Internal Medicine 07/04/24 Magda Davis MD [address] [place] [address] Gastroenterology 07/04/24 Ifeoma Hanson MD [address] [place], [place] [phone] Endocrinology 07/04/24 Ifeoma Hanson MD [address] [place] [address] Endocrinology 11/26/24 documented as of this encounter
--- OUTSIDE RECORDS SUMMARY | 2025-07-24 20:32 | XMS_ITS | Encounter Summary ---
Author Organization [facility] Address [address] [place] [address] Care Team Providers Care Hims Coder Name Role Phone Jacqueline Kay MD Primary Care Provider Unava ilable Jacqueline Kay MD Primary Care Provider Unava ilable Jacqueline Kay MD Unavailable Unavailable Jacqueline Kay MD Unavailable Unavailable Stephanie Darnell I OIL RIG ROUGHNECK Unavailable [phone] Stephanie Darnell I OIL RIG ROUGHNECK Unavailable [phone] Cathleen Allan MD Unavailable [phone] Pete Hester MD Unavailable [phone] Pati Armendariz PhD Unavailabl e Madhav Mcfadden MD Primary Care Provider [phone] Jacqueline Kay MD Unavailable Unavailable Yasmine Cohen RN Unavailable Unavaila ble Bre Almaguer RN Unavailable [phone] Madhav Mcfadden MD Unavailable [phone] Romero Pryor MD Unavailable [phone] Prerna Paulino MD Unavailable [phone] Magda Davis MD Unavailable [phone] Ifeoma Hanson MD Unavailable Ifeoma Hanson MD Unavailable Encounter Details Date Type Department Care Team (Late st Contact Info) Description 02/26/2019 Scanned Document [facility] Keron [address] [place] [address] [place] [address] Provider, Generic Social History Tobacco Use Types [...] 2025 8:00 AM EST Office Visit [address] [address] Madhav Mcfadden MD [address] [place] [address] 09/01/2025 9:20 AM EST Office Visit MG PAIN MGMT [id number] [address] [address] Reji Mi, DO [address] [place] [address] [phone] 09/29/2025 9:20 AM EST Office Visit [facility] PAIN MGMT [id number] [address] [address] Reji Mi, DO [address] [place] [address] [phone] 10/27/2025 9:40 AM EDT Office Visit MG PAIN MGMT [id number] [address] [place] [phone] ShmuelRejiil, DO [address] [phone] 12/01/2025 9:40 AM EDT Office Visit [facility] PAIN MGMT [id number] [address] [place] [address] ShmuelReji Joni, DO [address] [phone] 02/03/2026 9:30 AM EDT Telemedicine [facility] Endocrinology [address] [phone] Ifeoma Hanson MD [address] [place] [address] documented as of this encounter Visit Diagnoses Not on filedocumented in this encounter Additional Health Concerns Infection Onset Date Last Indicated Resolved Time R/O Gastrointestinal Infection 10/31/2022 10/31/2022 11/02/2022 11:58 AM EDT R/O C. Difficile 10/31/2022 10/31/2022 11/02/2022 11:58 AM EDT documented as of this encounter Care Teams Hims Coder Relationship Specialty Start Date End Date Jacqueline Kay MD PCP - General Family Medicine 11/01/17 04/28/21 Jacqueline Kay MD PCP - General Family Medicine 04/29/21 01/15/22 Jacqueline Kay MD PCP - [employer] Attributed 06/06/20 07/05/20 Stephanie Darnell APRN [address] [phone] PCP - [employer] Attributed 07/06/20 10/03/20 Stephanie Darnell APRN [address] [place], [place] [phone] PCP - [employer] Attributed 05/06/21 11/03/21 Madhav Mcfadden MD [address] [place] [address] PCP - General Family Medicine 01/16/22 Jacqueline Kay MD PCP - [employer] Attributed 11/04/21 07/05/22 Madhav Mcfadden MD [address] [phone] (Work) PCP - [employer] Attributed 07/06/22 07/05/23 Jacqueline Kay MD Family Medicine 04/29/21 03/30/22 Cathleen Allan MD [address] [place] [address] Urology 09/15/16 Pete Hseter MD [address] [place], [place] [phone] Surgery, Orthopedic 08/15/19 Pati Armendariz, PhD [address] [place], [place] [phone] Clinical Psychologist Psychology 09/16/21 Yasmine Cohen, RN [address] [phone] [facility] Community Community Case Manager 07/21/22 08/26/23 Bre Almaguer, RN 1290 [facility] 4 [place] [address] [facility] Community Community Case Manager 10/03/22 11/13/22 Romero Pryor MD [address] [place] [address] Cardiovascular Disease 02/05/23 Prerna Paulino MD [address] [place] [address] Internal Medicine 07/04/24 Magda Davis MD [address] [place] [address] Gastroenterology 07/04/24 Ifeoma Hanson MD [address] [place], [place] [address] Endocrinology 07/04/24 Ifeoma Hanson MD [address] [place] [address] Endocrinology 11/26/24 documented as of this encounter
--- OUTSIDE RECORDS SUMMARY | 2025-07-24 20:32 | XMS_ITS | Encounter Summary ---
Author Organization [facility] Address [address] [place] [address] Care Team Providers Care Marklogic Developer Name Role Phone Cathleen Allan MD Unavailable [phone] Pete Hester MD Unavailable [phone] Pati Armendariz PhD Unavailabl e Madhav Mcfadden MD Primary Care Provider [phone] Romero Pryor MD Unavailable [phone] Prerna Paulino MD Unavailable [phone] Magda Davis MD Unavailable [phone] Ifeoma Hanson MD Unavailable [phone] Ifeoma Hanson MD Unavailable [phone] Encounter Details Date Type Department Care Team (Late st Contact Info) Description 09/30/2024 Scanned Document [facility] Endocrinology [place] [address] [place] [phone] Ifeoma Hanson MD [address] [place], [place] [phone] Social History Tobacco Use Types Packs/Day Years Used Date Smoking Tobacco: Never Passive Smoke Exposure: Past Smokeless Tobacco: Never Alcohol Use Standard Drinks/Week Comments Not Currently 0 (1 standard drink = 0.6 oz pur e alcohol) [facility] Utilities Answer Date Recorded In the [...] and Family Not on file 09/18/2024 Attends Sikh Services Not on file 09/18 Active Member [...] a skilled nursing (including now)? No 04/02/2023 Housing Stability Vital Sign Answer Alden e Recorded In the last 12 months, was t here a time when you were not able to pay the mortgage or rent on time? No 09/18/2024 In the past 12 months, how m any times have you moved where you were living? 0 09/18/2024 At any time in the past 12 m [facility], were you homeless or living in a skilled nursing (including now)? No 09/18/2024 Physical Activity Answer [...] Description 2025 8:00 AM EST Office Visit [address] [address] Madhav Mcfadden MD [address] [place] [address] 09/01/2025 9:20 AM EST Office Visit MG FRIDA BOLIVAR [id number] [address] [phone] Reji Mi DO [address] [phone] 09/29/2025 9:20 AM EST Office Visit MG PAIN MGMT [id number] [address] [place] [phone] ShmuelReji Joni, DO [address] [address] 10/27/2025 9:40 AM EDT Office Visit MG PAIN MGMT [id number] [address] [phone] Shmuel, Reji Joni, DO [address] [place] [address] 12/01/2025 9:40 AM EDT Office Visit MG PAIN MGMT [id number] [address] [phone] ShmuelReji Joni, DO [address] [place] [address] 02/03/2026 9:30 AM EDT Telemedicine [facility] Endocrinology [address] [address] Ifeoma Hanson MD [address] [place] [address] documented as of this encounter Goals Goal [...] he was provided today with a [facility] HEP., ongoing OT LTG 2 Occupational Therapy No Maida Benito, OT Note: Patient will decrease Quick Dash score from 79.5 to 10 or less in order to complete functional tasks with greater ease x 12 weeks 06/18/2019 Scored the same today, ongoing OT LTG 3 Occupational Therapy No Maida Benito, OT Note: Patient will increase L dehydration plant operator strength (4lbs) to 60 lbs or more in order to open pill bottles with greater ease x12 weeks Patient will increase L lateral pinch (3.5), L tip pinch (2.5), L 3 jaw pinch (2.5) by 5 lbs each in order for greater ease with typing x12 weeks. 06/18/2019 L dehydration plant operator- 20 lbs L lateral pinch- 6.2 [...] documented as of this encounter Care Teams Marklogic Developer Relationship Specialty Start Date End Date Madhav Mcfadden MD [address] [phone] PCP - General Family Medicine 01/16/22 Cathleen Allan MD Urology 09/15/16 Pete Hester MD [address] [place] [address] Surgery, Orthopedic 08/15/19 Pati Armendariz, PhD [address] [place] [address] Clinical Psychologist Psychology 09/16/21 Romero Pryor MD [address] [place] [address] Cardiovascular Disease 02/05/23 Prerna Paulino MD [address] [place] [address] Internal Medicine 07/04/24 Magda Davis MD [address] [place] [address] Gastroenterology 07/04/24 Ifeoma Hanson MD [address] [place] [address] Endocrinology 07/04/24 Ifeoma Hanson MD [address] [place] [address] Endocrinology 11/26/24 documented as of this encounter
--- OUTSIDE RECORDS SUMMARY | 2025-07-24 20:32 | XMS_ITS | Encounter Summary ---
Author Organization [facility] Address [address] [place] [address] Care Team Providers Care Internal Communications Intern Name Role Phone Jacqueline Kay MD Primary Care Provider Unava ilable Jacqueline Kay MD Primary Care Provider Unava ilable Jacqueline Kay MD Unavailable Unavailable Jacqueline Kay MD Unavailable Unavailable Stephanie Darnell I GRID MOLDER Unavailable [phone] Stephanie Darnell I GRID MOLDER Unavailable [phone] Cathleen Allan MD Unavailable [phone] Pete Hester MD Unavailable [phone] Pati Armendariz PhD Unavailabl e Madhav Mcfadden MD Primary Care Provider [phone] Jacqueline Kay MD Unavailable Unavailable Yasmine Cohen RN Unavailable Unavaila ble Bre Almaguer RN Unavailable [phone] Madhav Mcfadden MD Unavailable [phone] Romero Pryor MD Unavailable [phone] Prerna Paulino MD Unavailable [phone] Magda Davis MD Unavailable [phone] Ifeoma Hanson MD Unavailable Ifeoma Hanson MD Unavailable [phone] Encounter Details Date Type Department Care Team (Late Contact Info) Description 11/13/2019 Prep for Surgery [facility] 31 [facility] [address] [place] [address] Bal Dill MD 100 [facility] [address] [place] [address] Complex regional pain syndrome type 1 of [...] have Coronavirus / COVID-19? No / Unsure 11/12/2019 3:27 PM EDT documented as of this encounter Plan of Treatment Upcoming Encounters Date Type Department Care Team (Late Contact Info) Description 2025 8:00 AM EST Office Visit [address] [phone] Madhav Mcfadden MD [address] [place] [address] 09/01/2025 9:20 AM EST Office Visit MG PAIN MGMT [id number] 65 [facility] [address] [place] [phone] Reji Mi DO [address] [phone] 09/29/2025 9:20 AM EST Office Visit MG PAIN MGMT [id number] [address] [place] [phone] Reji Mi, DO [address] [place] [address] 10/27/2025 9:40 AM EDT Office Visit MG PAIN MGMT [id number] [address] [place] [phone] ShmuelRejiil, DO [address] [place] [address], [place] [address] 12/01/2025 9:40 AM EDT Office Visit MG PAIN MGMT [id number] [address] [place] [phone] ShmuelRejiil, DO [address] [place] [address], [place] [address] 02/03/2026 9:30 AM EDT Telemedicine [facility] Endocrinology [address] [phone] Ifeoma Hanson MD [address] [place] [address] documented as of this encounter Goals Goal [...] and he was provided today with a [facility] HEP., ongoing OT LTG 2 Occupational Therapy No Maida Benito, OT Note: Patient will decrease Quick Dash score from 79.5 to 10 or less in order to complete functional tasks with greater ease x 12 weeks 06/18/2019 Scored the same today, ongoing OT LTG 3 Occupational Therapy No Maida Benito, OT Note: Patient will increase L food general manager strength (4lbs) to 60 lbs or more in order to open pill bottles with greater ease x12 weeks Patient will increase L lateral pinch (3.5), L tip pinch (2.5), L 3 jaw pinch (2.5) by 5 lbs each in order for greater ease with typing x12 weeks. 06/18/2019 L food general manager- 20 lbs L lateral pinch- 6.2 [...] documented as of this encounter Care Teams Internal Communications Intern Relationship Specialty Start Date End Date Jacqueline Kay MD PCP - General Family Medicine 11/01/17 04/28/21 Jacqueline Kay MD PCP - General Family Medicine 04/29/21 01/15/22 Jacqueline Kay MD PCP - [employer] Attributed 06/06/20 07/05/20 Stephanie Darnell APRN [address] [address] PCP - [employer] Attributed 07/06/20 10/03/20 Stephanie Darnell I, GRID MOLDER [address] [address] PCP - [employer] Attributed 05/06/21 11/03/21 Madhav Mcfadden MD [address] [place], [place] [phone] PCP - General Family Medicine 01/16/22 Jacqueline Kay MD PCP - [employer] Attributed 11/04/21 07/05/22 Madhav Mcfadden MD [address] [place] [address] PCP - [employer] Attributed 07/06/22 07/05/23 Jacqueline Kay MD Family Medicine 04/29/21 03/30/22 Cathleen Allan MD [address] [place] [address] 1022 [place] [phone] Urology 09/15/16 Pete Hester MD [address] [place] [address] [phone] Surgery, Orthopedic 08/15/19 Pati Armendariz, PhD [address] [place] [address] [phone] Clinical Psychologist Psychology 09/16/21 Yasmine Cohen, RN [facility] [address] Community Pathology Technician 07/21/22 08/26/23 Bre Almaguer, RN [address] [address] [facility] Community Pathology Technician 10/03/22 11/13/22 Romero Pryor MD [address] [place] [address] Cardiovascular Disease 02/05/23 Prerna Paulino MD [address] [place] [address] Internal Medicine 07/04/24 Magda Davis MD [address] [place] [address] Gastroenterology 07/04/24 Ifeoma Hanson MD [address] [place] [address] Endocrinology 07/04/24 Ifeoma Hanson MD [address] [place] [address] Endocrinology 11/26/24 documented as of this encounter
--- OUTSIDE RECORDS SUMMARY | 2025-07-24 20:32 | XMS_ITS | Encounter Summary ---
Author Organization [facility] Address [address] [place] [address] Care Team Providers Care Vc++ Developer Name Role Phone Cathleen Allan MD Unavailable [phone] Pete Hester MD Unavailable [phone] Pati Armendariz PhD Unavailabl e Madhav Mcfadden MD Primary Care Provider [phone] Romero Pryor MD Unavailable [phone] Prerna Paulino MD Unavailable [phone] Magda Davis MD Unavailable [phone] Ifeoma Hanson MD Unavailable [phone] Ifeoma Hanson MD Unavailable [phone] Encounter Details Date Type Department Care Team (Late st Contact Info) Description 03/16/2025 Scanned Document MG PAIN MGMT [id number] 65 [facility] [address] [place] [address] Pain Management, Scan Social History Tobacco Use Types Packs/Day Years Used Date Smoking Tobacco: Never Passive Smoke Exposure: Past Smokeless Tobacco: Never Alcohol Use Standard Drinks/Week Comments Not Currently 0 (1 standard drink = 0.6 oz pur e alcohol) [facility] Utilities Answer Date Recorded In the past 12 months has [employer], gas, oil, or water company threatened to shut off services in your home? No 09/18/2024 Social Connection and Isolation Panel Answer Date Recorded In a typical week, how many times do you talk on the phone with family, friends, or neighbors? More than three times a week 09/18/2024 Frequency of Social Gatherin gs with Friends and Family Not on file 09/18/2024 Attends Gnosticist Services Not on file 09/18 Active Member [...] place to sleep or slept in a group home (including now)? No 04/02/2023 Housing Stability Vital Sign Answer Alden e Recorded In the last 12 months, was t here a time when you were not able to pay the mortgage or rent on time? No 09/18/2024 In the past 12 months, how m any times have you moved where you were living? 0 09/18/2024 At any time in the past 12 m [facility], were you homeless or living in a group home (including now)? No 09/18/2024 Physical Activity Answer [...] 2025 8:00 AM EST Office Visit [address] [address] Madhav Mcfadden MD [address] [place] [address] 09/01/2025 9:20 AM EST Office Visit MG PAIN MGMT [id number] [address] [address] Reji Mi DO [address] [address] 09/29/2025 9:20 AM EST Office Visit MG PAIN MGMT [id number] [address] [address] Reji Mi, DO [address], [place] [phone] 10/27/2025 9:40 AM EDT Office Visit MG PAIN MGMT [id number] [address] [place] [phone] ShmuelReijil, DO [address] [place] [address] 12/01/2025 9:40 AM EDT Office Visit MG PAIN MGMT [id number] [address] [place] [phone] Reji Miil, DO [address], [place] [phone] 02/03/2026 9:30 AM EDT Telemedicine [facility] Endocrinology [address] [address] Ifeoma Hanson MD [address] [place] [address] [phone] documented as of this encounter Goals Goal [...] and he was provided today with a [facility]., ongoing OT LTG 2 Occupational Therapy No Maida Benito, OT Note: Patient will decrease Quick Dash score from 79.5 to 10 or less in order to complete functional tasks with greater ease x 12 weeks 06/18/2019 Scored the same today, ongoing OT LTG 3 Occupational Therapy No Maida Benito, OT Note: Patient will increase L rate setter strength (4lbs) to 60 lbs or more in order to open pill bottles with greater ease x12 weeks Patient will increase L lateral pinch (3.5), L tip pinch (2.5), L 3 jaw pinch (2.5) by 5 lbs each in order for greater ease with typing x12 weeks. 06/18/2019 L rate setter- 20 lbs L lateral pinch- 6.2 [...] documented as of this encounter Care Teams Vc++ Developer Relationship Specialty Start Date End Date Madhav Mcfadden MD [address] [place] [address] PCP - General Family Medicine 01/16/22 Cathleen Allan MD Urology 09/15/16 Pete Hester MD [address] [place] [address] Surgery, Orthopedic 08/15/19 Pati Armendariz, PhD [address] [place] [address] Clinical Psychologist Psychology 09/16/21 Romero Pryor MD [address] [place] [address] Cardiovascular Disease 02/05/23 Prerna Paulino MD [address] [place] [address] Internal Medicine 07/04/24 Magda Davis MD [address] [place] [address] Gastroenterology 07/04/24 Ifeoma Hanson MD [address] [place], [place] [address] Endocrinology 07/04/24 Ifeoma Hanson MD [address] [place] [address] Endocrinology 11/26/24 documented as of this encounter
--- OUTSIDE RECORDS SUMMARY | 2025-07-24 20:32 | XMS_ITS | Encounter Summary ---
Author Organization [facility] Address [address] [place] [address] Care Team Providers Care Lamina Searcher Name Role Phone Jacqueline Kay MD Primary Care Provider Unava ilable Jacqueline Kay MD Primary Care Provider Unava ilable Jacqueline Kay MD Unavailable Unavailable Jacqueline Kay MD Unavailable Unavailable Stephanie Darnell I LOGISTICS TEAM LEAD Unavailable [phone] Stephanie Darnell I LOGISTICS TEAM LEAD Unavailable [phone] Cathleen Allan MD Unavailable [phone] Pete Hester MD Unavailable [phone] Pati Armendariz PhD Unavailabl e Madhav Mcfadden MD Primary Care Provider [phone] Jacqueline Kay MD Unavailable Unavailable Yasmine Cohen RN Unavailable Unavaila ble Bre Almaguer RN Unavailable [phone] Madhav Mcfadden MD Unavailable [phone] Romero Pryor MD Unavailable [phone] Prerna Paulino MD Unavailable [phone] Magda Davis MD Unavailable [phone] Ifeoma Hanson MD Unavailable [phone] Ifeoma Hanson MD Unavailable Encounter Details Date Type Department Care Team (Late st Contact Info) Description 07/25/2018 Scanned Document [facility] Keron [address] [place] [address] [place] [address] Provider, Generic Social History Tobacco Use Types [...] 2025 8:00 AM EST Office Visit [address] [address] Madhav Mcfadden MD [address] [place] [address] 09/01/2025 9:20 AM EST Office Visit MG PAIN MGMT [id number] [address] [address] Reji Mi, DO [address] [place] [address] [phone] 09/29/2025 9:20 AM EST Office Visit MG PAIN MGMT [id number] [address] [address] Reji Mi, DO [address] [place] [address] [phone] 10/27/2025 9:40 AM EDT Office Visit MG PAIN MGMT [id number] [address] [place] [phone] ShmuelRejiil, DO [address] [phone] 12/01/2025 9:40 AM EDT Office Visit MG PAIN MGMT [id number] [address] [place] [address] ShmuelReji Joni, DO [address] [phone] 02/03/2026 9:30 AM EDT Telemedicine [facility] Endocrinology [address] [phone] Ifeoma Hanson MD [address] [place] [address] documented as of this encounter Visit Diagnoses Not on filedocumented in this encounter Additional Health Concerns Infection Onset Date Last Indicated Resolved Time R/O Gastrointestinal Infection 10/31/2022 10/31/2022 11/02/2022 11:58 AM EDT R/O C. Difficile 10/31/2022 10/31/2022 11/02/2022 11:58 AM EDT documented as of this encounter Care Teams Lamina Searcher Relationship Specialty Start Date End Date Jacqueline Kay MD PCP - General Family Medicine 11/01/17 04/28/21 Jacqueline Kay MD PCP - General Family Medicine 04/29/21 01/15/22 Jacqueline Kay MD PCP - [employer] Attributed 06/06/20 07/05/20 Stephanie Darnell APRN [address] [phone] PCP - [employer] Attributed 07/06/20 10/03/20 Stephanie Darnell APRN [address] [place], [place] [phone] PCP - [employer] Commercial Attributed 05/06/21 11/03/21 Madhav Mcfadden MD [address] [place] [address] PCP - General Family Medicine 01/16/22 Jacqueline Kay MD PCP - [employer] Commercial Attributed 11/04/21 07/05/22 Madhav Mcfadden MD [address] [phone] (Work) PCP - [employer] Attributed 07/06/22 07/05/23 Jacqueline Kay MD Family Medicine 04/29/21 03/30/22 Cathleen Allan MD [address] [place] [address] Urology 09/15/16 Pete Hester MD [address] [place], [place] [phone] Surgery, Orthopedic 08/15/19 Pati Armendariz, PhD [address] [place], [place] [phone] Clinical Psychologist Psychology 09/16/21 Yasmine Cohen, RN [address] [phone] [facility] Community Organisational Psychologist 07/21/22 08/26/23 Bre Almaguer, RN 1290 [facility] 4 [place] [address] [facility] Community Organisational Psychologist 10/03/22 11/13/22 Romero Pryor MD [address] [place] [address] Cardiovascular Disease 02/05/23 Prerna Paulino MD [address] [place] [address] Internal Medicine 07/04/24 Magda Davis MD [address] [place] [address] Gastroenterology 07/04/24 Ifeoma Hanson MD [address] [place], [place] [address] Endocrinology 07/04/24 Ifeoma Hanson MD [address] [place] [address] Endocrinology 11/26/24 documented as of this encounter
--- OUTSIDE RECORDS SUMMARY | 2025-07-24 20:32 | XMS_ITS | Encounter Summary ---
Author Organization [facility] Address [address] [place] [address] Care Team Providers Care Lunchroom Worker Name Role Phone Jacqueline Kay MD Primary Care Provider Unava ilable Jacqueline Kay MD Primary Care Provider Unava ilable Jacqueline Kay MD Unavailable Unavailable Jacqueline Kay MD Unavailable Unavailable Stephanie Darnell I CARD FIXER Unavailable [phone] Stephanie Darnell I CARD FIXER Unavailable +[phone] Cathleen Allan MD Unavailable [phone] Pete Hester MD Unavailable +[phone] Pati Armendariz PhD Unavailabl e Madhav Mcfadden MD Primary Care Provider [phone] Jacqueline Kay MD Unavailable Unavailable Yasmine Cohen RN Unavailable Unavaila ble Bre Almaguer RN Unavailable [phone] Madhav Mcfadden MD Unavailable [phone] Romero Pryor MD Unavailable [phone] Prerna Paulino MD Unavailable [phone] Magda Davis MD Unavailable [phone] Ifeoma Hanson MD Unavailable [phone] Ifeoma Hanson MD Unavailable [phone] Encounter Details Date Type Department Care Team (Late st Contact Info) Description 03/12/2019 Scanned Document [facility] Keron [address] [place] [address] [place] [address] Provider, Generic Social History Tobacco Use Types [...] Description 2025 8:00 AM EST Office Visit [address] [address] Madhav Mcfadden MD [address] [place] [address] 09/01/2025 9:20 AM EST Office Visit [facility] [id number] [address] [address] Reji Mi, DO [address] [place] [address] [phone] 09/29/2025 9:20 AM EST Office Visit [facility] [id number] [address] [address] Reji Mi, DO [address] [place] [phone] 10/27/2025 9:40 AM EDT Office Visit [facility] [id number] [address] [place] [phone] ShmuelRejiil, DO [address] [phone] 12/01/2025 9:40 AM EDT Office Visit [facility] [id number] [address] [place] [address] ShmuelReji Joni, DO [address] [phone] 02/03/2026 9:30 AM EDT Telemedicine [facility] Endocrinology [address] [phone] Ifeoma Hanson MD [address] [place] [address] documented as of this encounter Visit Diagnoses Not on filedocumented in this encounter Additional Health Concerns Infection Onset Date Last Indicated Resolved Time R/O Gastrointestinal Infection 10/31/2022 10/31/2022 11/02/2022 11:58 AM EDT R/O C. Difficile 10/31/2022 10/31/2022 11/02/2022 11:58 AM EDT documented as of this encounter Care Teams Lunchroom Worker Relationship Specialty Start Date End Date Jacqueline Kay MD PCP - General Family Medicine 11/01/17 04/28/21 Jacqueline Kay MD PCP - General Family Medicine 04/29/21 01/15/22 Jacqueline Kay MD PCP - [employer] Attributed 06/06/20 07/05/20 Stephanie Darnell APRN [address] [phone] PCP - [employer] Attributed 07/06/20 10/03/20 Stephanie Darnell APRN [address] [place], [place] [phone] PCP - [employer] Attributed 05/06/21 11/03/21 Madhav Mcfadden MD [address] [place] [address] PCP - General Family Medicine 01/16/22 Jacqueline Kay MD PCP - [employer] Attributed 11/04/21 07/05/22 Madhav Mcfadden MD [address] [place] [phone] (Work) PCP - [employer] Attributed 07/06/22 07/05/23 Jacqueline Kay MD Family Medicine 04/29/21 03/30/22 Cathleen Allan MD [address] [place] [address] Urology 09/15/16 Pete Hester MD [address] [place], [place] [phone] Surgery, Orthopedic 08/15/19 Pati Armendariz, PhD [address] [place], [place] [phone] Clinical Psychologist Psychology 09/16/21 Yasmine Cohen, RN [address] [phone] [facility] Community Mining And Quarrying Machinery Repairer 07/21/22 08/26/23 Bre Almaguer, RN 1290 [facility] [address] [place] [address] [facility] Community Mining And Quarrying Machinery Repairer 10/03/22 11/13/22 Romero Pryor MD [address] [place] [address] Cardiovascular Disease 02/05/23 Prerna Paulino MD [address] [place] [address] Internal Medicine 07/04/24 Magda Davis MD [address] [place] [address] Gastroenterology 07/04/24 Ifeoma Hanson MD [address] [place], [place] [phone] Endocrinology 07/04/24 Ifeoma Hanson MD [address] [place] [address] Endocrinology 11/26/24 documented as of this encounter
--- OUTSIDE RECORDS SUMMARY | 2025-07-24 20:32 | XMS_ITS | Encounter Summary ---
Author Organization [facility] Address [address] [place] [address] Care Team Providers Care Telephone Advice Nurse Name Role Phone Jacqueline Kay MD Primary Care Provider Unava ilable Jacqueline Kay MD Primary Care Provider Unava ilable Jacqueline Kay MD Unavailable Unavailable Jacqueline Kay MD Unavailable Unavailable Stephanie Darnell I HOME THEATRE TECHNICIAN Unavailable [phone] Stephanie Darnell I HOME THEATRE TECHNICIAN Unavailable +[phone] Cathleen Allan MD Unavailable [phone] Pete Hester MD Unavailable +[phone] Pati Armendariz PhD Unavailabl e Madhav Mcfadden MD Primary Care Provider [phone] Jacqueline Kay MD Unavailable Unavailable Yasmine Cohen RN Unavailable Unavaila ble Bre Almaguer RN Unavailable [phone] Madhav Mcfadden MD Unavailable [phone] Romero Pryor MD Unavailable [phone] Prerna Paulino MD Unavailable [phone] Magda Davis MD Unavailable [phone] Ifeoma Hanson MD Unavailable Ifeoma Hanson MD Unavailable Encounter Details Date Type Department Care Team (Late st Contact Info) Description 12/27/2018 Scanned Document [facility] SCAN Pharmacy, Scan Social History Tobacco Use Types Packs/Day [...] Description 2025 8:00 AM EST Office Visit [address] [address] Madhav Mcfadden MD [address] [place] [address] 09/01/2025 9:20 AM EST Office Visit [facility] [id number] [address] [phone] Reji Mi, DO [address] [place] [address] [phone] 09/29/2025 9:20 AM EST Office Visit [id number] [address] [phone] Reji Mi, DO [address] [phone] 10/27/2025 9:40 AM EDT Office Visit [id number] [address] [phone] Reji Mi, DO [address] [place] [address] 12/01/2025 9:40 AM EDT Office Visit [facility] PAIN MGMT [id number] [address] [place] [address] ShmuelRejiil, DO [address], [place] [phone] 02/03/2026 9:30 AM EDT Telemedicine [facility] [place] [place] Endocrinology [place] [address] [place] [phone] Ifeoma Hanson MD [address] [place] [address] documented as of this encounter Visit Diagnoses Not on filedocumented in this encounter Additional Health Concerns Infection Onset Date Last Indicated Resolved Time R/O Gastrointestinal Infection 10/31/2022 10/31/2022 11/02/2022 11:58 AM EDT R/O C. Difficile 10/31/2022 10/31/2022 11/02/2022 11:58 AM EDT documented as of this encounter Care Teams Telephone Advice Nurse Relationship Specialty Start Date End Date Jacqueline Kay MD PCP - General Family Medicine 11/01/17 04/28/21 Jacqueline Kay MD PCP - General Family Medicine 04/29/21 01/15/22 Jacqueline Kay MD PCP - [employer] Attributed 06/06/20 07/05/20 Stephanie Darnell APRN [address] [place] [phone] PCP - [employer] Attributed 07/06/20 10/03/20 Stephanie Darnell APRN [address] [phone] PCP - [employer] Attributed 05/06/21 11/03/21 Madhav Mcfadden MD [address] [place] [address] PCP - General Family Medicine 01/16/22 Jacqueline Kay MD PCP - [employer] Attributed 11/04/21 07/05/22 Madhav Mcfadden MD [address] [place] [address] PCP - [employer] Attributed 07/06/22 07/05/23 Jacqueline Kay MD Family Medicine 04/29/21 03/30/22 Cathleen Allan MD [address] [address] Urology 09/15/16 Pete Hester MD [address] [place], [place] [phone] Surgery, Orthopedic 08/15/19 Pati Armendariz, PhD [address] [place] [address] 435 [place], [place] [phone] Clinical Psychologist Psychology 09/16/21 Yasmine Cohen, RN 8322 [place] [address] [facility] Community Cane Flume Feeding Machine Operator 07/21/22 08/26/23 Bre Almaguer, RN [address] [address] [facility] Community Cane Flume Feeding Machine Operator 10/03/22 11/13/22 Romero Pryor MD [address] [place] [address] Cardiovascular Disease 02/05/23 Prerna Paulino MD [address] [place] [address] Internal Medicine 07/04/24 Magda Davis MD [address] [place] [address] Gastroenterology 07/04/24 Ifeoma Hanson MD [address] [place] [address] Endocrinology 07/04/24 Ifeoma Hanson MD [address] [place] [address] Endocrinology 11/26/24 documented as of this encounter
--- OUTSIDE RECORDS SUMMARY | 2025-07-24 20:33 | XMS_ITS | Encounter Summary ---
Author Organization [facility] Address [address] [place] [address] Care Team Providers Care Woods Boss Name Role Phone Madhav Mcfadden MD Primary Care Provider [phone] Encounter Details Date Type Department Care Team ([facility] st Contact Info) Description 10/06/2024 Scanned Document [facility] SCHEDULING [address] [place], [place] [phone] Provider, Historical . Social History Tobacco Use [...] hurting or threatening you in anyway? no 09/02/2024 Physical Indicators of Abuse No evidence of phys ical abuse 09/02/2024 Sex and Gender Information Value Date Recorded Sex Assigned at Male 06/16/2025 10:30 AM EST Legal Sex Male 8:50 PM EST Gender Identity Male 06/16/2025 10:30 AM EST Sexual Orientation Not on file documented as of this encounter Plan of Treatment Upcoming Encounters Date Type Department Care Team (Late st Contact Info) Description 08/05/2025 1:40 PM EST [facility] [address] [place] [address]. [place] [address] Bal Villavicencio MD Corporate [facility] [address] [place] [phone] 08/11/2025 4:00 PM EST Evaluation [facility] [address] [place] [address] Kerry Kaba MD 200 [facility] [address] [place] [phone] 08/17/2025 1:00 PM EST Office Visit [facility] at [address] [place] [address] Petrona Nesbitt PA [address] [place] [phone] 09/04/2025 10:15 AM EST [facility] Up [facility] at [address] [place] [address] Carlos Lo MD [address] [place] [phone] 10/20/2025 4:00 PM EDT Telemedicine [facility] 40 [facility] 40 [facility] 1A [place] [address] Prerna Paulino MD [address] [phone] 10/29/2025 9:00 AM EDT Office Visit [facility] [address] [place] [address] Petrona Nesbitt PA [address] [place] [phone] 12/10/2025 10:00 AM EDT Office Visit [facility] [address] [place] [address], [place] [address] Petrona Nesbitt PA [address] [place] [phone] 01/21/2026 10:00 AM EDT Office Visit [facility] [address] [place] [address], [place] [address] Petrona Nesbitt PA [address] [place] [phone] 03/04/2026 10:00 AM EDT Office Visit [facility] [address] [place] [address] Petrona Nesbitt PA [address] [place] [phone] 04/15/2026 10:30 AM EDT Office Visit [facility] [address] [place] [address] Ebonie Crowley MD [address] [place] [phone] documented as of this encounter Procedures Procedure Name Priority Date/Time Associated Diagnosis Comments LAB SCAN Routine 10/03/2024 3:19 PM EST documented in this encounter Results * Lab Scan (10/03/2024 3:19 PM EST) us Historical Provider LAB BLOOD ORDERABLES Final R esult documented in this encounter Visit Diagnoses Not on filedocumented in this encounter Additional Health Concerns Assessment Noted Time PHQ-9 Depression Total Score: 0 08/18/19 24 6:00 PM EST documented as of this encounter Care Teams Woods Boss Relationship Specialty Start Date End Date Madhav Mcfadden MD [address] [place] [address] PCP - General Family Medicine 08/20/23 documented as of this encounter
--- OUTSIDE RECORDS SUMMARY | 2025-07-24 20:33 | XMS_ITS | Encounter Summary ---
Author Organization [facility] Address [address] [place] [address] Care Team Providers Care Director Medical Name Role Phone Jacqueline Kay MD Primary Care Provider Unava ilable Jacqueline Kay MD Primary Care Provider Unava ilable Jacqueline Kay MD Unavailable Unavailable Jacqueline Kay MD Unavailable Unavailable Stephanie Darnell I HARNESS AND BAG INSPECTOR Unavailable [phone] Stephanie Darnell I HARNESS AND BAG INSPECTOR Unavailable [phone] Cathleen Allan MD Unavailable [phone] Pete Hester MD Unavailable [phone] Pati Armendariz PhD Unavailabl e Madhav Mcfadden MD Primary Care Provider [phone] Jacqueline Kay MD Unavailable Unavailable Yasmine Cohen RN Unavailable Unavaila ble Bre Almaguer RN Unavailable [phone] Madhav Mcfadden MD Unavailable [phone] Romero Pryor MD Unavailable [phone] Prerna Paulino MD Unavailable [phone] Magda Davis MD Unavailable [phone] Ifeoma Hanson MD Unavailable Ifeoma Hanson MD Unavailable [phone] Encounter Details Date Type Department Care Team (Late st Contact Info) Description 11/14/2019 Scanned Document [facility] Vascular & Endovascular Surgery [address] [place] [address] Gaudencio Payne MD [address] [place] [address] Social History Tobacco Use Types Packs/Day Years [...] Description 2025 8:00 AM EST Office Visit [address] [phone] Madhav Mcfadden MD [address] [place] [address] 09/01/2025 9:20 AM EST Office Visit [facility] PA[facility] MGMT [id number] [address] [phone] Reji Mi DO [address] [phone] 09/29/2025 9:20 AM EST Office Visit [facility] PA[facility] [id number] [address] [place] [phone] ShmuelReji, DO [address] [place] [address], [place] [address] 10/27/2025 9:40 AM EDT Office Visit [facility] PA[facility] [id number] [address] [place] [address] ShmuelReji, DO [address] [place] [address], [place] [address] 12/01/2025 9:40 AM EDT Office Visit [facility] PAIN MGMT [id number] [address] [place] [phone] ShmuelReji, DO [address] [place] [address] 02/03/2026 9:30 AM EDT Telemedicine [facility] Endocrinology [address] [phone] Ifeoma Hanson MD [address] [place] [address] documented as of this encounter Goals Goal [...] and he was provided today with a [facility] HEP., ongoing OT LTG 2 Occupational Therapy No Maida Benito, OT Note: Patient will decrease Quick Dash score from 79.5 to 10 or less in order to complete functional tasks with greater ease x 12 weeks 06/18/2019 Scored the same today, ongoing OT LTG 3 Occupational Therapy No Maida Benito, OT Note: Patient will increase L motorcycle assembler strength (4lbs) to 60 lbs or more in order to open pill bottles with greater ease x12 weeks Patient will increase L lateral pinch (3.5), L tip pinch (2.5), L 3 jaw pinch (2.5) by 5 lbs each in order for greater ease with typing x12 weeks. 06/18/2019 L motorcycle assembler- 20 lbs L lateral pinch- 6.2 Tip [...] documented as of this encounter Care Teams Director Medical Relationship Specialty Start Date End Date Jacqueline Kay MD PCP - General Family Medicine 11/01/17 04/28/21 Jacqueline Kay MD PCP - General Family Medicine 04/29/21 01/15/22 Jacqueline Kay MD PCP - [employer] Attributed 06/06/20 07/05/20 Stephanie Darnell APRN [address] [phone] PCP - [employer] Attributed 07/06/20 10/03/20 Stephanie Darnell I HARNESS AND BAG INSPECTOR [address] [address] PCP - [employer] Attributed 05/06/21 11/03/21 Madhav Mcfadden MD [address] [place], [place] [address] PCP - General Family Medicine 01/16/22 Jacqueline Kay MD PCP - [employer] Attributed 11/04/21 07/05/22 Madhav Mcfadden MD [address] [place] [address] PCP - [employer] Commercial Attributed 07/06/22 07/05/23 Jacqueline Kay MD Family Medicine 04/29/21 03/30/22 Cathleen Allan MD [address] [place] [address] 1022 [place] [address] Urology 09/15/16 Pete Hester MD [address] [place] [address] Surgery, Orthopedic 08/15/19 Pati Armendariz, PhD [address] [place] [address] Clinical Psychologist Psychology 09/16/21 Yasmine Cohen RN [address] [place] [address] Community Dental Billing Specialist 07/21/22 08/26/23 Bre Almaguer, RN [address] [address] [facility] Community Dental Billing Specialist 10/03/22 11/13/22 Romero Pryor MD [address] [place] [address] Cardiovascular Disease 02/05/23 Prerna Paulino MD [address] [place] [address] Internal Medicine 07/04/24 Magda Davis MD [address] [place] [address] Gastroenterology 07/04/24 Ifeoma Hanson MD [address] [place] [address] Endocrinology 07/04/24 Ifeoma Hanson MD [address] [place] [address] Endocrinology 11/26/24 documented as of this encounter
--- OUTSIDE RECORDS SUMMARY | 2025-07-24 20:33 | XMS_ITS | Encounter Summary ---
Author Organization [facility] Address [address] [place] [address] Care Team Providers Care Mine Promotor Name Role Phone Jacqueline Kay MD Primary Care Provider Unava ilable Jacqueline Kay MD Primary Care Provider Unava ilable Jacqueline Kay MD Unavailable Unavailable Jacqueline Kay MD Unavailable Unavailable Stephanie Darnell I COMMERCIAL ANALYST Unavailable [phone] Stephanie Darnell I COMMERCIAL ANALYST Unavailable [phone] Cathleen Allan MD Unavailable [phone] Pete Hester MD Unavailable [phone] Pati Armendariz PhD Unavailabl e Madhav Mcfadden MD Primary Care Provider [phone] Jacqueline Kay MD Unavailable Unavailable Yasmine Cohen RN Unavailable Unavaila ble Bre Almaguer RN Unavailable [phone] Madhav Mcfadden MD Unavailable [phone] Romero Pryor MD Unavailable [phone] Prerna Paulino MD Unavailable [phone] Magda Davis MD Unavailable [phone] Ifeoma Hanson MD Unavailable Ifeoma Hanson MD Unavailable Encounter Details Date Type Department Care Team (Late st Contact Info) Description 12/19/2019 Scanned Document [facility] Keron [address] [place] [address] [place] [address] Jacqueline Kay MD Social History Tobacco Use [...] or suspected to have Coronavirus / COVID-19? Unable to assess 12/16/2019 9:32 AM EDT documented as of this encounter Plan of Treatment Upcoming Encounters Date Type Department Care Team (Late st Contact Info) Description 2025 8:00 AM EST Office Visit [address] [phone] Madhav Mcfadden MD [address] [place] [address] 09/01/2025 9:20 AM EST Office Visit [facility] [id number] [address] [address] Reji Mi DO [address] [address] 09/29/2025 9:20 AM EST Office Visit MG PAIN MGMT [id number] [address] [address] Reji Mi, DO [address] [place] [address] 10/27/2025 9:40 AM EDT Office Visit MG PAIN MGMT [id number] [address] [place] [address] Reji Mi, DO [address] [place] [address] 12/01/2025 9:40 AM EDT Office Visit MG PAIN MGMT [id number] [address] [place] [phone] Reji Mi, DO [address], [place] [phone] 02/03/2026 9:30 AM EDT Telemedicine [facility] Endocrinology [address] [address] Ifeoma Hanson MD [address] [place] [address] [phone] documented as of this encounter Goals Goal [...] and he was provided today with a [facility] HEP., ongoing OT LTG 2 Occupational Therapy No Maida Benito, OT Note: Patient will decrease Quick Dash score from 79.5 to 10 or less in order to complete functional tasks with greater ease x 12 weeks 06/18/2019 Scored the same today, ongoing OT LTG 3 Occupational Therapy No Maida Benito, OT Note: Patient will increase L retail pharmacist strength (4lbs) to 60 lbs or more in order to open pill bottles with greater ease x12 weeks Patient will increase L lateral pinch (3.5), L tip pinch (2.5), L 3 jaw pinch (2.5) by 5 lbs each in order for greater ease with typing x12 weeks. 06/18/2019 L retail pharmacist- 20 lbs L lateral pinch- 6.2 Tip [...] documented as of this encounter Care Teams Mine Promotor Relationship Specialty Start Date End Date Jacqueline Kay MD PCP - General Family Medicine 11/01/17 04/28/21 Jacqueline Kay MD PCP - General Family Medicine 04/29/21 01/15/22 Jacqueline Kay MD PCP - [employer] Attributed 06/06/20 07/05/20 Stephanie Darnell I, COMMERCIAL ANALYST [address] [address] PCP - [employer] Commercial Attributed 07/06/20 10/03/20 Stephanie Darnell APRN [address] [phone] PCP - [employer] Attributed 05/06/21 11/03/21 Madhav Mcfadden MD [address] [place], [place] [address] PCP - General Family Medicine 01/16/22 Jacqueline Kay MD PCP - [employer] Commercial Attributed 11/04/21 07/05/22 Madhav Mcfadden MD [address] [place] [address] PCP - [employer] Commercial Attributed 07/06/22 07/05/23 Jacqueline Kay MD Family Medicine 04/29/21 03/30/22 Cathleen Allan MD [address] [address] Urology 09/15/16 Pete Hester MD [address] [place] [address] Surgery, Orthopedic 08/15/19 Pati Armendariz, PhD [address] [place] [address] Clinical Psychologist Psychology 09/16/21 Yasmine Cohen, RN [facility] [address] Community Car Sales Consultant 07/21/22 08/26/23 Bre Almaguer, RN [address] [address] [facility] Community Car Sales Consultant 10/03/22 11/13/22 Romero Proyr MD [address] [place] [address] Cardiovascular Disease 02/05/23 Prerna Paulino MD [address] [place] [address] Internal Medicine 07/04/24 Magda Davis MD [address] [place] [address] Gastroenterology 07/04/24 Ifeoma Hanson MD [address] [place] [address] Endocrinology 07/04/24 Ifeoma Hanson MD 1559 [place] [address] Endocrinology 11/26/24 documented as of this encounter
--- OUTSIDE RECORDS SUMMARY | 2025-07-24 20:33 | XMS_ITS | Encounter Summary ---
Author Organization [facility] Address [address] [place] [address] Care Team Providers Care Motor Racer Name Role Phone Cathleen Allan MD Unavailable [phone] Pete Hester MD Unavailable [phone] Pati Armendariz PhD Unavailabl e Madhav Mcfadden MD Primary Care Provider [phone] Yasmine Cohen RN Unavailable Unavaila ble Romero Pryor MD Unavailable [phone] Prerna Paulino MD Unavailable [phone] Magda Davis MD Unavailable [phone] Ifeoma Hanson MD Unavailable [phone] Ifeoma Hanson MD Unavailable [phone] Encounter Details Date Type Department Care Team (Late st Contact Info) Description 07/17/2023 Scanned Document [facility] Endocrinology [place] [address] [place] [phone] Ifeoma Hanson MD [address] [place] [address] [phone] Social History Tobacco Use Types Packs/Day Years [...] in a usp (including now)? No 04/02/2023 Sex and Gender Information Value Date Recorded Sex Assigned at Male 08/16/2022 10:08 AM EST Legal Sex Male 2:40 PM EDT Gender Identity Male 08/16/2022 10:08 AM EST Sexual Orientation Heterosexual (straight) 08/16 10:08 AM EST documented as of this encounter Plan of Treatment Upcoming Encounters Date Type Department Care Team (Late st Contact Info) Description 2025 8:00 AM EST Office Visit [address] [address] Madhav Mcfadden MD [address] [place] [address] [phone] 09/01/2025 9:20 AM EST Office Visit [facility] [id number] [address] [phone] Reji Mi, DO [address] [place] [address] 09/29/2025 9:20 AM EST Office Visit [facility] [id number] [address] [phone] Reji Mi, DO [address] [place] [address] 10/27/2025 9:40 AM EDT Office Visit [facility] [id number] [address] [phone] Reji Mi, DO [address] [place] [address] 12/01/2025 9:40 AM EDT Office Visit [facility] [id number] [address] [phone] Reji Mi, DO [address] [place] [address] 02/03/2026 9:30 AM EDT Telemedicine [facility] Endocrinology [address] [address] Ifeoma Hanson MD [address] [place] [address] documented as of this encounter Goals Goal [...] Benito, OT Note: Patient will increase L outside food server strength (4lbs) to 60 lbs or more in order to open pill bottles with greater ease x12 weeks Patient will increase L lateral pinch (3.5), L tip pinch (2.5), L 3 jaw pinch (2.5) by 5 lbs each in order for greater ease with typing x12 weeks. 06/18/2019 L outside food server- 20 lbs L lateral pinch- 6.2 Tip [...] on filedocumented in this encounter Care Teams Motor Racer Relationship Specialty Start Date End Date Madhav Mcfadden MD [address] [place] [address] PCP - General Family Medicine 01/16/22 Cathleen Allan MD Urology 09/15/16 Pete Hester MD [address] [address] Surgery, Orthopedic 08/15/19 Pati Armendariz, PhD [address] [place] [address] [address] [place] [address] Clinical Psychologist Psychology 09/16/21 Yasmine Cohen, RN [address] [place] [address] [facility] Community Servicenow Administrator 07/21/22 08/26/23 Romero Pryor MD [address] [place] [address] Cardiovascular Disease 02/05/23 Prerna Paulino MD [address] [place] [address] Internal Medicine 07/04/24 Magda Davis MD [address] [place] [address] Gastroenterology 07/04/24 Ifeoma Hanson MD [address] [place] [address] Endocrinology 07/04/24 Ifeoma Hanson MD [address] [place] [address] Endocrinology 11/26/24 documented as of this encounter
--- OUTSIDE RECORDS SUMMARY | 2025-07-24 20:33 | XMS_ITS | Encounter Summary ---
Author Organization [facility] Address [address] [place] [address] Care Team Providers Care Tutor Name Role Phone Cathleen Allan MD Unavailable [phone] Pete Hester MD Unavailable [phone] Pati Armendariz PhD Unavailabl e Madhav Mcfadden MD Primary Care Provider [phone] Yasmine Cohen RN Unavailable Unavaila ble Madhav Mcfadden MD Unavailable [phone] Romero Pryor MD Unavailable [phone] Prerna Paulino MD Unavailable [phone] Magda Davis MD Unavailable [phone] Ifeoma Hanson MD Unavailable [phone] Ifeoma Hanson MD Unavailable [phone] Encounter Details Date Type Department Care Team (Late st Contact Info) Description 05/24/2023 Scanned Document [facility] [address] [place] [address] Axel Tovar MD 85 [facility] [address] [place] [address] Social History Tobacco Use Types Packs/Day Years [...] place to sleep or slept in a fdc (including now)? No 04/02/2023 Sex and Gender [...] 2025 8:00 AM EST Office Visit [address] [address] Madhav Mcfadden MD [address] [place] [address] 09/01/2025 9:20 AM EST Office Visit [id number] [address] [phone] Reji Mi, DO [address] [place] [address] 09/29/2025 9:20 AM EST Office Visit [id number] [address] [phone] Reji Mi, DO [address] [place] [address] 10/27/2025 9:40 AM EDT Office Visit [id number] [address] [phone] Reji Mi, DO [address] [place] [address] 12/01/2025 9:40 AM EDT Office Visit [id number] [address] [phone] Reji Mi, DO [address] [place] [address] 02/03/2026 9:30 AM EDT Telemedicine [facility] Endocrinology [address] [place] [address] Ifeoma Hanson MD [address] [place] [address] documented as of this encounter Goals Goal [...] he was provided today with a [facility] HEP., ongoing OT LTG 2 Occupational Therapy No Maida Benito, OT Note: Patient will decrease Quick Dash score from 79.5 to 10 or less in order to complete functional tasks with greater ease x 12 weeks 06/18/2019 Scored the same today, ongoing OT LTG 3 Occupational Therapy No Maida Benito, OT Note: Patient will increase L telesales agent strength (4lbs) to 60 lbs or more in order to open pill bottles with greater ease x12 weeks Patient will increase L lateral pinch (3.5), L tip pinch (2.5), L 3 jaw pinch (2.5) by 5 lbs each in order for greater ease with typing x12 weeks. 06/18/2019 L telesales agent- 20 lbs L lateral pinch- 6.2 Tip [...] on filedocumented in this encounter Care Teams Tutor Relationship Specialty Start Date End Date Madhav Mcfadden MD [address] [place] [address] PCP - General Family Medicine 01/16/22 Madhav Mcfadden MD [address] [place] [address] PCP - [employer] Commercial Attributed 07/06/22 07/05/23 Cathleen Allan MD Urology 09/15/16 Pete Hester MD [address] [place] [address] [phone] Surgery, Orthopedic 08/15/19 Pati Armendariz, PhD [address] [place] [address] [phone] Clinical Psychologist Psychology 09/16/21 Yasmine Cohen, RN [address] [place] [address] Community Medicaid Eligibility Specialist 07/21/22 08/26/23 Romero Pryor MD [address] [place] [address] Cardiovascular Disease 02/05/23 Prerna Paulino MD [address] [place], [place] [phone] Internal Medicine 07/04/24 Magda Davis MD [address] [place] [address] Gastroenterology 07/04/24 Ifeoma Hanson MD [address] [place] [address] Endocrinology 07/04/24 Ifeoma Hanson MD [address] [place] [address] Endocrinology 11/26/24 documented as of this encounter
--- OUTSIDE RECORDS SUMMARY | 2025-07-24 20:33 | XMS_ITS | Encounter Summary ---
Author Organization [facility] Address [address] [place] [address] Care Team Providers Care Machinist Apprentice Wood Name Role Phone Cathleen Allan MD Unavailable [phone] Pete Hester MD Unavailable [phone] Pati Armendariz PhD Unavailabl e Madhav Mcfadden MD Primary Care Provider [phone] Yasmine Cohen RN Unavailable Unavaila ble Madhav Mcfadden MD Unavailable [phone] Romero Pryor MD Unavailable [phone] Preran Paulino MD Unavailable [phone] Magda Davis MD Unavailable [phone] Ifeoma Hanson MD Unavailable [phone] Ifeoma Hanson MD Unavailable [phone] Encounter Details Date Type Department Care Team (Late st Contact Info) Description 05/25/2023 Scanned Document [facility] PHARMACY SCAN Pharmacy, Scan Social History [...] in a snf (including now)? No 04/02/2023 Sex and Gender [...] Description 2025 8:00 [place] [address] Madhav Mcfadden MD [address] [place] [address] 09/01/2025 9:20 AM EST Office Visit [id number] [address] [phone] ShmuelReji Joni, DO [address] [place] [address] 09/29/2025 9:20 AM EST Office Visit [id number] [address] [phone] ShmuelReji silver Joni, DO [address] [place] [address] 10/27/2025 9:40 AM EDT Office Visit [id number] [address] [phone] ShmuelReji Joni, DO [address] [place] [address] 12/01/2025 9:40 AM EDT Office Visit [id number] [address] [phone] Shmuel Reji Joni, DO [address] [place] [address] 02/03/2026 9:30 AM EDT Telemedicine [facility] Endocrinology [address] [phone] Ifeoma Hanson MD [address] [place] [address] documented as of this encounter Goals Goal [...] and he was provided today with a [facility] HEP., ongoing OT LTG 2 Occupational Therapy No Maida Benito, OT Note: Patient will decrease Quick Dash score from 79.5 to 10 or less in order to complete functional tasks with greater ease x 12 weeks 06/18/2019 Scored the same today, ongoing OT LTG 3 Occupational Therapy No Maida Benito OT Note: Patient will increase L tip printer strength (4lbs) to 60 lbs or more in order to open pill bottles with greater ease x12 weeks Patient will increase L lateral pinch (3.5), L tip pinch (2.5), L 3 jaw pinch (2.5) by 5 lbs each in order for greater ease with typing x12 weeks. 06/18/2019 L tip printer- 20 lbs L lateral pinch- 6.2 Tip [...] LTG 6 Occupational Therapy No Maida Benito, DON Note: Patient will increase L shoulder abductors and IR's, elbow extensors, and wrist flexors/extensors (3+/5) to 5/5 in order to greater ease picking up young son x12 weeks Abductors- 3+ IR's- 5/5 Elbow extensors- 4/5 Wrist flexors-5/5 Wrist extensors- 4/5 Ongoing documented as of this encounter Visit Diagnoses Not on filedocumented in this encounter Care Teams Machinist Apprentice Wood Relationship Specialty Start Date End Date Madhav Mcfadden MD [address] [place] [address] PCP - General Family Medicine 01/16/22 Madhav Mcfadden MD [address] [place] [address] PCP - [employer] Commercial Attributed 07/06/22 07/05/23 Cathleen Allan MD Urology 09/15/16 Pete Hester MD [address] [place] [address] Surgery, Orthopedic 08/15/19 Pati Armendariz, PhD [address] [place] [address] Clinical Psychologist Psychology 09/16/21 Yasmine Cohen, RN [address] [place] [address] [facility] Community Diabetes Education Coordinator 07/21/22 08/26/23 Romero Pryor MD [address] [place] [address] Cardiovascular Disease 02/05/23 Prerna Paulino MD [address] [place] [address] Internal Medicine 07/04/24 Magda Davis MD [address] [place] [address] Gastroenterology 07/04/24 Ifeoma Hanson MD [address] [place] [address] Endocrinology 07/04/24 Ifeoma Hanson MD [address] [place] [address] Endocrinology 11/26/24 documented as of this encounter
--- OUTSIDE RECORDS SUMMARY | 2025-07-24 20:33 | XMS_ITS | Encounter Summary ---
Author Organization [facility] Address [address] [place] [address] Care Team Providers Care Education And Training Coordinator Name Role Phone Jacqueline Kay MD Primary Care Provider Unava ilable Jacqueline Kay MD Primary Care Provider Unava ilable Jacqueline Kay MD Unavailable Unavailable Jacqueline Kay MD Unavailable Unavailable Stephanie Darnell I CARPENTRY SUPERVISOR Unavailable [phone] Stephanie Darnell I CARPENTRY SUPERVISOR Unavailable [phone] Cathleen Allan MD Unavailable [phone] Pete Hester MD Unavailable [phone] Pati Armendariz PhD Unavailabl e Madhav Mcfadden MD Primary Care Provider [phone] Jacqueline Kay MD Unavailable Unavailable Yasmine Cohen RN Unavailable Unavaila ble Bre Almaguer RN Unavailable [phone] Madhav Mcfadden MD Unavailable [phone] Romero Pryor MD Unavailable [phone] Prerna Paulino MD Unavailable [phone] Magda Davis MD Unavailable [phone] Ifeoma Hanson MD Unavailable Ifeoma Hanson MD Unavailable Encounter Details Date Type Department Care Team (Late st Contact Info) Description 11/14/2019 Scanned Document [facility] [address] [place] [phone] Gaudencio Payne MD [address] [place] [address] Social History Tobacco Use Types Packs/Day Years [...] Description 2025 8:00 AM EST Office Visit [address] [phone] Madhav Mcfadden MD [address] [place] [address] 09/01/2025 9:20 AM EST Office Visit [id number] [address] [phone] Reji Mi DO [address] [phone] 09/29/2025 9:20 AM EST Office Visit [id number] [address] [place] [phone] ShmuelReji, DO [address] [place] [address] 10/27/2025 9:40 AM EDT Office Visit [id number] [address] [place] [address] ShmuelReji Joni, DO [address] [place] [address], [place] [address] 12/01/2025 9:40 AM EDT Office Visit MG PAIN MGMT [id number] [address] [place] [phone] ShmuelRejiil, DO [address] [place] [address] 02/03/2026 9:30 AM EDT Telemedicine [facility] Endocrinology [address] [phone] Ifeoma Hanson MD [address] [place] [address] documented as of this encounter Goals Goal [...] was provided today with a [facility] HEP., ongoing OT LTG 2 Occupational Therapy No Maida Benito, OT Note: Patient will decrease Quick Dash score from 79.5 to 10 or less in order to complete functional tasks with greater ease x 12 weeks 06/18/2019 Scored the same today, ongoing OT LTG 3 Occupational Therapy No Maida Benito, OT Note: Patient will increase L solar manufacturer's representative strength (4lbs) to 60 lbs or more in order to open pill bottles with greater ease x12 weeks Patient will increase L lateral pinch (3.5), L tip pinch (2.5), L 3 jaw pinch (2.5) by 5 lbs each in order for greater ease with typing x12 weeks. 06/18/2019 L solar manufacturer's representative- 20 lbs L lateral pinch- 6.2 [...] as of this encounter Care Teams Education And Training Coordinator Relationship Specialty Start Date End Date Jacqueline Kay MD PCP - General Family Medicine 11/01/17 04/28/21 Jacqueline Kay MD PCP - General Family Medicine 04/29/21 01/15/22 Jacqueline Kay MD PCP - [employer] Commercial Attributed 06/06/20 07/05/20 Stephanie Darnell APRN [address] [address] PCP - [employer] Commercial Attributed 07/06/20 10/03/20 Stephanie Darnell APRN [address] [address] PCP - [employer] Commercial Attributed 05/06/21 11/03/21 Madhav Mcfadden MD [address] [place], [place] 518104 PCP - General Family Medicine 01/16/22 Jacqueline Kay MD PCP - [employer] Commercial Attributed 11/04/21 07/05/22 Madhav Mcfadden MD [address] [place], [place] 410994 PCP - [employer] Commercial Attributed 07/06/22 07/05/23 Jacqueline Kay MD Family Medicine 04/29/21 03/30/22 Cathleen Allan MD [address] [place] [address] 1022 [place] [address] Urology 09/15/16 Pete Hester MD [address] [address] Surgery, Orthopedic 08/15/19 Pati Armendariz, PhD [address] [place] [address] Clinical Psychologist Psychology 09/16/21 Yasmine Cohen, RN [address] Community Armor Reconnaissance Vehicle Driver 07/21/22 08/26/23 Bre Almaguer, RN [address] [address] [facility] Community Armor Reconnaissance Vehicle Driver 10/03/22 11/13/22 Romero Pryor MD [address] [place] [address] Cardiovascular Disease 02/05/23 Prerna Paulino MD [address] [place] [address] Internal Medicine 07/04/24 Magda Davis MD [address] [place] [address] Gastroenterology 07/04/24 Ifeoma Hanson MD [address] [place] [address] Endocrinology 07/04/24 Ifeoma Hanson MD [address] [place] [address] Endocrinology 11/26/24 documented as of this encounter
--- OUTSIDE RECORDS SUMMARY | 2025-07-24 20:33 | XMS_ITS | Encounter Summary ---
Author Organization [facility] Address [address] [place] [address] Care Team Providers Care Workday Senior Associate Name Role Phone Cathleen Allan MD Unavailable [phone] Pete Hester MD Unavailable [phone] Pati Armendariz PhD Unavailabl e Madhav Mcfadden MD Primary Care Provider [phone] Yasmine Cohen RN Unavailable Unavaila ble Madhav Mcfadden MD Unavailable [phone] Romero Pryor MD Unavailable [phone] Prerna Paulino MD Unavailable [phone] Magda Davis MD Unavailable [phone] Ifeoma Hanson MD Unavailable [phone] Ifeoma Hanson MD Unavailable [phone] Encounter Details Date Type Department Care Team (Late st Contact Info) Description 05/25/2023 Scanned Document [facility] PRIMARY CARE SCAN Primary Care, Scan Social [...] place to sleep or slept in a alf (including now)? No 04/02/2023 Sex and Gender [...] Description 2025 8:00 AM EST Office Visit [address] [phone] Madhav Mcfadden MD [address] [place] [address] 432484 09/01/2025 9:20 AM EST Office Visit [id number] [address] [phone] ShmuelReji Joni, DO [address] [place] [address] 09/29/2025 9:20 AM EST Office Visit MG PAIN MGMT [id number] [address] [phone] ShmuelReji silver Joni, DO [address] [place] [address] 10/27/2025 9:40 AM EDT Office Visit MG PAIN MGMT [id number] [address] [place] [phone] Shmuel Reji Joni, DO [address] [place] [address] 12/01/2025 9:40 AM EDT Office Visit MG PAIN MGMT [id number] [address] [phone] Shmuel Reji Joni, DO [address] [place] [address] 02/03/2026 9:30 AM EDT Telemedicine [facility] Endocrinology [address] [phone] Ifeoma Hanson MD [address] [place] [address] documented as of this encounter Goals Goal [...] Benito OT Note: Patient will increase L intertype operator strength (4lbs) to 60 lbs or more in order to open pill bottles with greater ease x12 weeks Patient will increase L lateral pinch (3.5), L tip pinch (2.5), L 3 jaw pinch (2.5) by 5 lbs each in order for greater ease with typing x12 weeks. 06/18/2019 L intertype operator- 20 lbs L lateral pinch- 6.2 [...] on filedocumented in this encounter Care Teams Workday Senior Associate Relationship Specialty Start Date End Date Madhav Mcfadden MD [address] [place] [address] PCP - General Family Medicine 01/16/22 Madhav Mcfadden MD [address] [place] [address] PCP - [employer] Commercial Attributed 07/06/22 07/05/23 Cathleen Allan MD Urology 09/15/16 Pete Hester MD [address] [place] [address] Surgery, Orthopedic 08/15/19 Pati Armendariz, PhD [address] [address] Clinical Psychologist Psychology 09/16/21 Yasmine Cohen, RN [address] [place] [address] [facility] Community Nursing Staff Development Coordinator 07/21/22 08/26/23 Romero Pryor MD [address] [place] [address] Cardiovascular Disease 02/05/23 Prerna Paulino MD [address] [place] [address] Internal Medicine 07/04/24 Magda Davis MD [address] [place] [address] Gastroenterology 07/04/24 Ifeoma Hanson MD [address] [place] [address] Endocrinology 07/04/24 Ifeoma Hanson MD [address] [place] [address] Endocrinology 11/26/24 documented as of this encounter
--- OUTSIDE RECORDS SUMMARY | 2025-07-24 20:33 | XMS_ITS | Encounter Summary ---
Author Organization [facility] Address [address] [place] [address] Care Team Providers Care Manager Of Enterprise Name Role Phone Cathleen Allan MD Unavailable [phone] Pete Hester MD Unavailable [phone] Pati Armendariz PhD Unavailabl e Madhav Mcfadden MD Primary Care Provider [phone] Yasmine Cohen RN Unavailable Unavaila ble Madhav Mcfadden MD Unavailable [phone] Romero Pryor MD Unavailable [phone] Prerna Paulino MD Unavailable [phone] Magda Davis MD Unavailable [phone] Ifeoma Hanson MD Unavailable [phone] Ifeoma Hanson MD Unavailable [phone] Encounter Details Date Type Department Care Team (Late st Contact Info) Description 06/01/2023 Scanned Document [facility] PRIMARY CARE SCAN Primary Care, Scan Social [...] in a custodial (including now)? No 04/02/2023 Sex and Gender [...] Description 2025 8:00 AM EST Office Visit [address] [phone] Madhav Mcfadden MD [address] [place] [address] 528894 09/01/2025 9:20 AM EST Office Visit MG PAIN MGMT [id number] [address] [phone] ShmuelReji Joni, DO [address] [place] [address] 09/29/2025 9:20 AM EST Office Visit MG PAIN MGMT [id number] [address] [phone] ShmuelReji silver Joni, DO [address] [place] [address] 10/27/2025 9:40 AM EDT Office Visit MG PAIN MGMT [id number] [address] [place] [phone] Shmuel Reji Joni, DO [address] [place] [address] 12/01/2025 9:40 AM EDT Office Visit MG PAIN MGMT [id number] [address] [phone] Shmuel Reji Joni, DO [address] [place] [address] 02/03/2026 9:30 AM EDT Telemedicine [facility] Endocrinology [address] [phone] Ifeoma Hanson MD [address] [place] [address] documented as of this encounter Goals Goal [...] Benito OT Note: Patient will increase L patient account specialist strength (4lbs) to 60 lbs or more in order to open pill bottles with greater ease x12 weeks Patient will increase L lateral pinch (3.5), L tip pinch (2.5), L 3 jaw pinch (2.5) by 5 lbs each in order for greater ease with typing x12 weeks. 06/18/2019 L patient account specialist- 20 lbs L lateral pinch- 6.2 [...] on filedocumented in this encounter Care Teams Manager Of Enterprise Relationship Specialty Start Date End Date Madhav Mcfadden MD [address] [place] [address] PCP - General Family Medicine 01/16/22 Madhav Mcfadden MD [address] [place] [address] PCP - [employer] Commercial Attributed 07/06/22 07/05/23 Cathleen Allan MD Urology 09/15/16 Pete Hester MD [address] [place] [address] Surgery, Orthopedic 08/15/19 Pati Armendariz, PhD [address] [address] Clinical Psychologist Psychology 09/16/21 Yasmine Cohen, RN [address] [place] [address] [facility] Community Valve Pipe Irrigator 07/21/22 08/26/23 Romero Pryor MD [address] [place] [address] Cardiovascular Disease 02/05/23 Prerna Paulino MD [address] [place] [address] Internal Medicine 07/04/24 Magda Davis MD [address] [place] [address] Gastroenterology 07/04/24 Ifeoma Hanson MD [address] [place] [address] Endocrinology 07/04/24 Ifeoma Hanson MD [address] [place] [address] Endocrinology 11/26/24 documented as of this encounter
--- OUTSIDE RECORDS SUMMARY | 2025-07-24 20:33 | XMS_ITS | Encounter Summary ---
Author Organization [facility] Address [address] [place] [address] Care Team Providers Care Assistant Plant Manager Name Role Phone Cathleen Allan MD Unavailable [phone] Pete Hester MD Unavailable [phone] Pati Armendariz PhD Unavailabl e Madhav Mcfadden MD Primary Care Provider [phone] Yasmine Cohen RN Unavailable Unavaila ble Madhav Mcfadden MD Unavailable [phone] Romero Pryor MD Unavailable [phone] Prerna Paulino MD Unavailable [phone] Magda Davis MD Unavailable [phone] Ifeoma Hanson MD Unavailable [phone] Ifeoma Hanson MD Unavailable [phone] Encounter Details Date Type Department Care Team (Late st Contact Info) Description 05/24/2023 Scanned Document [facility] [address] [place] [address] Axel Tovar MD 85 [facility] [address] [place] [address] Social History Tobacco Use Types Packs/Day Years [...] a skilled nursing (including now)? No 04/02/2023 Sex and Gender [...] 2025 8:00 AM EST Office Visit [address] [address] Madhav Mcfadden MD [address] [place] [address] 09/01/2025 9:20 AM EST Office Visit [facility] [id number] [address] [phone] Reji Mi, DO [address] [place] [address] 09/29/2025 9:20 AM EST Office Visit [id number] [address] [phone] Reji Mi, DO [address] [place] [address] 10/27/2025 9:40 AM EDT Office Visit [id number] [address] [phone] Reji Mi, DO [address] [place] [address] 12/01/2025 9:40 AM EDT Office Visit [id number] [address] [phone] Reji Mi, DO [address] [place] [address] 02/03/2026 9:30 AM EDT Telemedicine [facility] Endocrinology [address] [place] [address] Ifeoma Hanson MD [address] [place] [address] documented as of this encounter Goals Goal [...] and he was provided today with a [facility] HEP., ongoing OT LTG 2 Occupational Therapy No Maida Benito, OT Note: Patient will decrease Quick Dash score from 79.5 to 10 or less in order to complete functional tasks with greater ease x 12 weeks 06/18/2019 Scored the same today, ongoing OT LTG 3 Occupational Therapy No Maida Benito, OT Note: Patient will increase L horticultural worker strength (4lbs) to 60 lbs or more in order to open pill bottles with greater ease x12 weeks Patient will increase L lateral pinch (3.5), L tip pinch (2.5), L 3 jaw pinch (2.5) by 5 lbs each in order for greater ease with typing x12 weeks. 06/18/2019 L horticultural worker- 20 lbs L lateral pinch- 6.2 Tip [...] on filedocumented in this encounter Care Teams Assistant Plant Manager Relationship Specialty Start Date End Date Madhav Mcfadden MD [address] [place] [address] PCP - General Family Medicine 01/16/22 Madhav Mcfadden MD [address] [place] [address] PCP - [employer] Commercial Attributed 07/06/22 07/05/23 Cathleen Allan MD Urology 09/15/16 Pete Hester MD [address] [place] [address] [phone] Surgery, Orthopedic 08/15/19 Pati Armendariz, PhD [address] [place] [address] [phone] Clinical Psychologist Psychology 09/16/21 Yasmine Cohen, RN [address] [place] [address] Community Anesthesia Associate 07/21/22 08/26/23 Romero Pryor MD [address] [place] [address] Cardiovascular Disease 02/05/23 Prerna Paulino MD [address] [place], [place] [phone] Internal Medicine 07/04/24 Magda Davis MD [address] [place] [address] Gastroenterology 07/04/24 Ifeoma Hanson MD [address] [place] [address] Endocrinology 07/04/24 Ifeoma Hanson MD [address] [place] [address] Endocrinology 11/26/24 documented as of this encounter
--- OUTSIDE RECORDS SUMMARY | 2025-07-24 20:33 | XMS_ITS | Encounter Summary ---
Author Organization [facility] Address [address] [place] [address] Care Team Providers Care Geodetic Computator Name Role Phone Cathleen Allan MD Unavailable [phone] Pete Hester MD Unavailable [phone] Pati Armendariz PhD Unavailabl e Madhav Mcfadden MD Primary Care Provider [phone] Yasmine Cohen RN Unavailable Unavaila ble Romero Pryor MD Unavailable [phone] Prerna Paulino MD Unavailable [phone] Magda Davis MD Unavailable [phone] Ifeoma Hanson MD Unavailable [phone] Ifeoma Hanson MD Unavailable [phone] Encounter Details Date Type Department Care Team (Late st Contact Info) Description 07/18/2023 Scanned Document [facility] Endocrinology [place] [address] [place] [phone] Ifeoma Hanson MD [address] [place] [address] [phone] Social History Tobacco Use Types Packs/Day Years [...] 2025 8:00 AM EST Office Visit [address] [address] Madhav Mcfadden MD [address] [place] [address] [phone] 09/01/2025 9:20 AM EST Office Visit [id number] [address] [phone] Reji Mi, DO [address] [place] [address] 09/29/2025 9:20 AM EST Office Visit [facility] [id number] [address] [phone] Reji Mi, DO [address] [place] [address] 10/27/2025 9:40 AM EDT Office Visit [id number] [address] [phone] Reji Mi, DO [address] [place] [address] 12/01/2025 9:40 AM EDT Office Visit [id number] [address] [phone] Reji Mi, DO [address] [place] [address] 02/03/2026 9:30 AM EDT Telemedicine [facility] Endocrinology [address] [phone] Ifeoma Hanson MD [address] [place] [address] documented as of this encounter Goals Goal [...] and he was provided today with a [facility] HEP., ongoing OT LTG 2 Occupational Therapy No Maida Benito, DON Note: Patient will decrease Quick Dash score from 79.5 to 10 or less in order to complete functional tasks with greater ease x 12 weeks 06/18/2019 Scored the same today, ongoing OT LTG 3 Occupational Therapy No Maida Benito, OT Note: Patient will increase L nuclear process engineer strength (4lbs) to 60 lbs or more in order to open pill bottles with greater ease x12 weeks Patient will increase L lateral pinch (3.5), L tip pinch (2.5), L 3 jaw pinch (2.5) by 5 lbs each in order for greater ease with typing x12 weeks. 06/18/2019 L nuclear process engineer- 20 lbs L lateral pinch- 6.2 [...] on filedocumented in this encounter Care Teams Geodetic Computator Relationship Specialty Start Date End Date Madhav Mcfadden MD [address] [place] [address] PCP - General Family Medicine 01/16/22 Cathleen Allan MD Urology 09/15/16 Pete Hester MD [address] [address] Surgery, Orthopedic 08/15/19 Pati Armendariz, PhD [address] [place] [address] [address] [place] [address] Clinical Psychologist Psychology 09/16/21 Yasmine Cohen, RN [address] [place] [address] [facility] Community Pattern Illustrator 07/21/22 08/26/23 Romero Pryor MD [address] [place] [address] Cardiovascular Disease 02/05/23 Prerna Paulino MD [address] [place] [address] Internal Medicine 07/04/24 Magda Davis MD [address] [place] [address] Gastroenterology 07/04/24 Ifeoma Hanson MD [address] [place] [address] Endocrinology 07/04/24 Ifeoma Hanson MD [address] [place] [address] Endocrinology 11/26/24 documented as of this encounter
--- OUTSIDE RECORDS SUMMARY | 2025-07-24 20:33 | XMS_ITS | Encounter Summary ---
Author Organization [facility] Address [address] [place] [address] Care Team Providers Care Training And Development Professional Name Role Phone Jacqueline Kay MD Primary Care Provider Unava ilable Jacqueline Kay MD Primary Care Provider Unava ilable Jacqueline Kay MD Unavailable Unavailable Jacqueline Kay MD Unavailable Unavailable Stephanie Darnell I SKIP OPERATOR Unavailable [phone] Stephanie Darnell I SKIP OPERATOR Unavailable [phone] Cathleen Allan MD Unavailable [phone] Pete Hester MD Unavailable [phone] Pati Armendariz PhD Unavailabl e Madhav Mcfadden MD Primary Care Provider [phone] Jacqueline Kay MD Unavailable Unavailable Yasmine Cohen RN Unavailable Unavaila ble Bre Almaguer RN Unavailable [phone] Madhav Mcfadden MD Unavailable [phone] Romero Pryor MD Unavailable [phone] Prerna Paulino MD Unavailable [phone] Magda Davis MD Unavailable [phone] Ifeoma Hanson MD Unavailable Ifeoma Hanson MD Unavailable [phone] Encounter Details Date Type Department Care Team (Late st Contact Info) Description 07/16/2019 Scanned Document [facility] Keron [address] [place] [address] [place] [address] Provider, Generic Social History Tobacco Use Types [...] 2025 8:00 AM EST Office Visit [address] [address] Madhav Mcfadden MD [address] [place] [address] 09/01/2025 9:20 AM EST Office Visit [id number] [address] [phone] Reji Mi, DO [address] [place] [address] [phone] 09/29/2025 9:20 AM EST Office Visit [id number] [address] [address] Reji Mi, DO [address] [place] [address] [phone] 10/27/2025 9:40 AM EDT Office Visit [id number] [address] [place] [address] Reji Mi, DO [address] [phone] 12/01/2025 9:40 AM EDT Office Visit [facility] [id number] [address] [place] [address] ShmuelReji Joni, DO [address], [place] [phone] 02/03/2026 9:30 AM EDT Telemedicine [facility] Endocrinology [address] [phone] Ifeoma Hanson MD [address] [place] [address] [phone] documented as of this encounter Goals Goal [...] Benito, DON Note: Patient will increase L residential solar sales consultant strength (4lbs) to 60 lbs or more in order to open pill bottles with greater ease x12 weeks Patient will increase L lateral pinch (3.5), L tip pinch (2.5), L 3 jaw pinch (2.5) by 5 lbs each in order for greater ease with typing x12 weeks. 06/18/2019 L residential solar sales consultant- 20 lbs L lateral pinch- 6.2 Tip [...] documented as of this encounter Care Teams Training And Development Professional Relationship Specialty Start Date End Date Jacqueline Kay MD PCP - General Family Medicine 11/01/17 04/28/21 Jacqueline Kay MD PCP - General Family Medicine 04/29/21 01/15/22 Jacqueline Kay MD PCP - [employer] Commercial Attributed 06/06/20 07/05/20 Stephanie Darnell APRN [address] [address] PCP - [employer] Commercial Attributed 07/06/20 10/03/20 Stephanie Darnell APRN [address] [place] [address] PCP - [employer] Commercial Attributed 05/06/21 11/03/21 Madhav Mcfadden MD [address] [place] [address] PCP - General Family Medicine 01/16/22 Jacqueline Kay MD PCP - [employer] Commercial Attributed 11/04/21 07/05/22 Madhav Mcfadden MD [address] [place] [address] PCP - [employer] Commercial Attributed 07/06/22 07/05/23 Jacqueline Kay MD Family Medicine 04/29/21 03/30/22 Cathleen Allan MD [address] [address] Urology 09/15/16 Pete Hester MD [address] [place] [address] Surgery, Orthopedic 08/15/19 Pati Armendariz, PhD [address] [place] [address] 435 [place] [address] Clinical Psychologist Psychology 09/16/21 Yasmine Cohen, RN [address] [place] [address] [facility] Community Ict Support And Test Engineers 07/21/22 08/26/23 Bre Almaguer, RN 1290 [facility] 4 [place] [address] [facility] Community Ict Support And Test Engineers 10/03/22 11/13/22 Romero Pryor MD [address] [place] [address] 100 [place] [address] Cardiovascular Disease 02/05/23 Prerna Paulino MD [address] [place] [address] 100 [place] [address] Internal Medicine 07/04/24 Magda Davis MD [address] [place] [address] [address] [place] [address] Gastroenterology 07/04/24 Ifeoma Hanson MD [address] [place] [address] Endocrinology 07/04/24 Ifeoma Hanson MD [address] [place] [address] Endocrinology 11/26/24 documented as of this encounter
--- OUTSIDE RECORDS SUMMARY | 2025-07-24 20:33 | XMS_ITS | Encounter Summary ---
Author Organization [facility] Address [address] [place] [address] Care Team Providers Care Open Winder Name Role Phone Madhav Mcfadden MD Primary Care Provider [phone] Encounter Details Date Type Department Care Team ([facility] st Contact Info) Description 12/05/2024 Scanned Document [facility] SCHEDULING [address] [place], [place] [phone] Provider, Historical . Social History Tobacco Use [...] Info) Description 08/05/2025 1:40 PM EST [facility]ointment [facility] [address] [place] [address]. [place] [address] Bal Villavicencio MD Corporate [facility] B-[address] [place] [phone] 08/11/2025 4:00 PM EST Evaluation [facility] [address] [place] [address] Kerry Kaba MD 200 [facility] 204 [place] [phone] 08/17/2025 1:00 PM EST Office Visit [facility] [address] [place] [address] Petrona Nesbitt PA [address] [place] [phone] 09/04/2025 10:15 AM EST Follow Up [facility] at [address] [place] [address] Carlos Lo MD [address] [place] [phone] 10/20/2025 4:00 PM EDT Telemedicine [facility] 40 [facility] 40 [facility] [address] [place] [address] Prerna Paulino MD [address] [phone] 10/29/2025 9:00 AM EDT Office Visit [facility] [address] [place] [address] Petrona Nesbitt PA [address] [place] [phone] 12/10/2025 10:00 AM EDT Office Visit [facility] [address] [place] [address], [place] [address] Petrona Nesbitt PA [address] [place] [phone] 01/21/2026 10:00 AM EDT Office Visit [facility] [address] [place] [address], [place] [address] Petrona Nesbitt PA [address] [place] [phone] 03/04/2026 10:00 AM EDT Office Visit [facility] [address] [place] [address] Petrona Nesbitt PA [address] [place] [phone] 04/15/2026 10:30 AM EDT Office Visit [facility] [address] [place] [address] Ebonie Crowley MD [address] [place] [phone] documented as of this encounter Procedures Procedure Name Priority Date/Time Associated Diagnosis Comments LAB SCAN Routine 12/04/2024 3:10 PM EDT documented in this encounter Results * Lab Scan (12/04/2024 3:10 PM EDT) us Historical Provider LAB BLOOD ORDERABLES Final R esult documented in this encounter Visit Diagnoses Not on filedocumented in this encounter Additional Health Concerns Assessment Noted Time PHQ-9 Depression Total Score: 0 08/18/19 24 6:00 PM EST documented as of this encounter Care Teams Open Winder Relationship Specialty Start Date End Date Madhav Mcfadden MD [address] [place] [address] PCP - General Family Medicine 08/20/23 documented as of this encounter
--- OUTSIDE RECORDS SUMMARY | 2025-07-24 20:33 | XMS_ITS | Encounter Summary ---
Author Organization [facility] Address [address] [place] [address] Care Team Providers Care Art Director Name Role Phone Cathleen Allan MD Unavailable [phone] Pete Hester MD Unavailable [phone] Pati Armendariz PhD Unavailabl e Madhav Mcfadden MD Primary Care Provider [phone] Yasmine Cohen RN Unavailable Unavaila ble Madhav Mcfadden MD Unavailable [phone] Romero Pryor MD Unavailable [phone] Prerna Paulino MD Unavailable [phone] Magda Davis MD Unavailable [phone] Ifeoma Hanson MD Unavailable [phone] Ifeoma Hanson MD Unavailable [phone] Encounter Details Date Type Department Care Team (Late st Contact Info) Description 05/04/2023 Scanned Document [facility] SC[facility] Pharmacy, Scan Social History [...] place to sleep or slept in a residential (including now)? No 04/02/2023 Sex and Gender [...] Description 2025 8:00 [place] [address] Madhav Mcfadden MD [address] [place] [address] 09/01/2025 9:20 AM EST Office Visit [id number] [address] [phone] ShmuelReji Joni, DO [address] [place] [address] 09/29/2025 9:20 AM EST Office Visit [id number] [address] [phone] ShmuelReji silver Joni, DO [address] [place] [address] 10/27/2025 9:40 AM EDT Office Visit [id number] [address] [phone] ShmuelReji Joni, DO [address] [place] [address] 12/01/2025 9:40 AM EDT Office Visit [facility] PA[facility]MT [id number] [address] [phone] Shmuel Reji Joni, DO [address] [place] [address] 02/03/2026 9:30 AM EDT Telemedicine [facility] Endocrinology [address] [phone] Ifeoma Hanson MD [address] [place] [address] documented as of this encounter Goals Goal [...] and he was provided today with a [facility] HEP., ongoing OT LTG 2 Occupational Therapy No Maida Benito, OT Note: Patient will decrease Quick Dash score from 79.5 to 10 or less in order to complete functional tasks with greater ease x 12 weeks 06/18/2019 Scored the same today, ongoing OT LTG 3 Occupational Therapy No Maida Benito OT Note: Patient will increase L switchboard wire worker helper strength (4lbs) to 60 lbs or more in order to open pill bottles with greater ease x12 weeks Patient will increase L lateral pinch (3.5), L tip pinch (2.5), L 3 jaw pinch (2.5) by 5 lbs each in order for greater ease with typing x12 weeks. 06/18/2019 L switchboard wire worker helper- 20 lbs L lateral pinch- 6.2 [...] on filedocumented in this encounter Care Teams Art Director Relationship Specialty Start Date End Date Madhav Mcfadden MD [address] [place] [address] PCP - General Family Medicine 01/16/22 Madhav Mcfadden MD [address] [place] [address] PCP - [employer] Commercial Attributed 07/06/22 07/05/23 Cathleen Allan MD Urology 09/15/16 Pete Hester MD [address] [place] [address] Surgery, Orthopedic 08/15/19 Pati Armendariz, PhD [address] [place] [address] Clinical Psychologist Psychology 09/16/21 Yasmine Cohen, RN [address] [place] [address] [facility] Community Instrument Lens Generator 07/21/22 08/26/23 Romero Pryor MD [address] [place] [address] Cardiovascular Disease 02/05/23 Prerna Paulino MD [address] [place] [address] Internal Medicine 07/04/24 Magda Davsi MD [address] [place] [address] Gastroenterology 07/04/24 Ifeoma Hanson MD [address] [place] [address] Endocrinology 07/04/24 Ifeoma Hanson MD [address] [place] [address] Endocrinology 11/26/24 documented as of this encounter
--- OUTSIDE RECORDS SUMMARY | 2025-07-24 20:33 | XMS_ITS | Encounter Summary ---
Author Organization [facility] Address [address] [place] [address] Care Team Providers Care Wall Taper Name Role Phone Jacqueline Kay MD Primary Care Provider Unava ilable Jacqueline Kay MD Primary Care Provider Unava ilable Jacqueline Kay MD Unavailable Unavailable Jacqueline Kay MD Unavailable Unavailable Stephanie Darnell I COMPUTING TUTOR Unavailable [phone] Stephanie Darnell I COMPUTING TUTOR Unavailable [phone] Cathleen Allan MD Unavailable [phone] Pete Hester MD Unavailable [phone] Pati Armendariz PhD Unavailabl e Madhav Mcfadden MD Primary Care Provider [phone] Jacqueline Kay MD Unavailable Unavailable Yasmine Cohen RN Unavailable Unavaila ble Bre Almaguer RN Unavailable [phone] Madhav Mcfadden MD Unavailable [phone] Romero Pryor MD Unavailable [phone] Prerna Paulino MD Unavailable [phone] Magda Davis MD Unavailable [phone] Ifeoma Hanson MD Unavailable Ifeoma Hanson MD Unavailable Encounter Details Date Type Department Care Team (Late st Contact Info) Description 11/17/2019 Scanned Document [facility] Keron [address] [place] [address] [place] [address] Jacqueline Kay MD Social History Tobacco Use [...] have Coronavirus / COVID-19? No / Unsure 11/19/2019 11:52 AM EDT documented as of this encounter Plan of Treatment Upcoming Encounters Date Type Department Care Team (Late st Contact Info) Description 2025 8:00 AM EST Office Visit [address] [phone] Madhav Mcfadden MD [address] [place] [address] 09/01/2025 9:20 AM EST Office Visit [facility] [id number] [address] [address] Reji Mi DO [address] [address] 09/29/2025 9:20 AM EST Office Visit [facility] PA[facility] MGMT [id number] [address] [address] ShmuelReji silver, DO [address] [place] [address] 10/27/2025 9:40 AM EDT Office Visit MG PAIN MGMT [id number] [address] [place] [address] Reji Mi, DO [address] [place] [address] 12/01/2025 9:40 AM EDT Office Visit MG PAIN MGMT [id number] [address] [place] [phone] Reji Mi, DO [address], [place] [phone] 02/03/2026 9:30 AM EDT Telemedicine [facility] Endocrinology [address] [address] Ifeoma Hanson MD [address] [place] [address] [phone] documented as of this encounter Goals Goal [...] he was provided today with a [facility] HEP., ongoing OT LTG 2 Occupational Therapy No Maida Benito, OT Note: Patient will decrease Quick Dash score from 79.5 to 10 or less in order to complete functional tasks with greater ease x 12 weeks 06/18/2019 Scored the same today, ongoing OT LTG 3 Occupational Therapy No Maida Benito, OT Note: Patient will increase L transportation services representative strength (4lbs) to 60 lbs or more in order to open pill bottles with greater ease x12 weeks Patient will increase L lateral pinch (3.5), L tip pinch (2.5), L 3 jaw pinch (2.5) by 5 lbs each in order for greater ease with typing x12 weeks. 06/18/2019 L transportation services representative- 20 lbs L lateral pinch- 6.2 [...] documented as of this encounter Care Teams Wall Taper Relationship Specialty Start Date End Date Jacqueline Kay MD PCP - General Family Medicine 11/01/17 04/28/21 Jacqueline Kay MD PCP - General Family Medicine 04/29/21 01/15/22 Jacqueline Kay MD PCP - [employer] Commercial Attributed 06/06/20 07/05/20 Stephanie Darnell I, COMPUTING TUTOR [address] [address] PCP - [employer] Commercial Attributed 07/06/20 10/03/20 Stephanie Darnell APRN [address] [address] PCP - [employer] Commercial Attributed 05/06/21 11/03/21 Madhav Mcfadden MD [address] [place], [place] 449054 PCP - General Family Medicine 01/16/22 Jacqueline Kay MD PCP - [employer] Commercial Attributed 11/04/21 07/05/22 Madhav Mcfadden MD [address] [place] [address] PCP - [employer] Commercial Attributed 07/06/22 07/05/23 Jacqueline Kay MD Family Medicine 04/29/21 03/30/22 Cathleen Allan MD [address] [phone] Urology 09/15/16 Pete Hester MD [address] [place] [address] Surgery, Orthopedic 08/15/19 Pati Armendariz, PhD [address] [place] [address] Clinical Psychologist Psychology 09/16/21 Yasmine Cohen, RN [facility] [address] Community Hospitality Recruiter 07/21/22 08/26/23 Bre Almaguer, RN [address] [address] [facility] Community Hospitality Recruiter 10/03/22 11/13/22 Romero Pryor MD [address] [place] [address] Cardiovascular Disease 02/05/23 Prerna Paulino MD [address] [place] [address] Internal Medicine 07/04/24 Magda Davis MD [address] [place] [address] Gastroenterology 07/04/24 Ifeoma Hanson MD [address] [place] [address] Endocrinology 07/04/24 Ifeoma Hanson MD [facility] [place] [address] Endocrinology 11/26/24 documented as of this encounter
--- OUTSIDE RECORDS SUMMARY | 2025-07-24 20:33 | XMS_ITS | Encounter Summary ---
Author Organization [facility] Address [address] [place] [address] Care Team Providers Care Channel Development Manager Name Role Phone Jaqcueline Kay MD Primary Care Provider Unava ilable Jacqueline Kay MD Primary Care Provider Unava ilable Jacqueline Kay MD Unavailable Unavailable Jacqueline Kay MD Unavailable Unavailable Stephanie Darnell I BREWING DIRECTOR Unavailable [phone] Stephanie Darnell I BREWING DIRECTOR Unavailable [phone] Cathleen Allan MD Unavailable [phone] Pete Hester MD Unavailable [phone] Pati Armendariz PhD Unavailabl e Madhav Mcfadden MD Primary Care Provider [phone] Jacqueline Kay MD Unavailable Unavailable Yasmine Cohen RN Unavailable Unavaila ble Bre Almaguer RN Unavailable [phone] Madhav Mcfadden MD Unavailable [phone] Romero Pryor MD Unavailable [phone] Prerna Paulino MD Unavailable [phone] Magda Davis MD Unavailable [phone] Ifeoma Hanson MD Unavailable Ifeoma Hanson MD Unavailable Encounter Details Date Type Department Care Team (Late Contact Info) Description 01/21/2020 Prep for Surgery [facility] [address] [facility] [address] [place] [address] Bal Dill MD [address] [place] [facility] [address] [place] [address] Complex regional pain syndrome type 1 of [...] have Coronavirus / COVID-19? Unable to assess 01/22/2020 9:18 AM EDT documented as of this encounter Plan of Treatment Upcoming Encounters Date Type Department Care Team (Late Contact Info) Description 2025 8:00 AM EST Office Visit [address] [phone] Madhav Mcfadden MD [address] [place] [address] 09/01/2025 9:20 AM EST Office Visit [facility] [id number] [address] [phone] Reji Mi DO [address] [phone] 09/29/2025 9:20 AM EST Office Visit [id number] [address] [place] [phone] ShmuelReji, DO [address] [place] [address] 10/27/2025 9:40 AM EDT Office Visit [id number] [address] [place] [phone] ShmuelReji, DO [address] [place] [address], [place] [address] 12/01/2025 9:40 AM EDT Office Visit [id number] [address] [place] [phone] ShmuelReji, DO [address] [place] [address] 02/03/2026 9:30 AM EDT Telemedicine [facility] Endocrinology [address] [phone] Ifeoma Hanson MD [address] [place] [phone] Scheduled Orders Name Type Priority Associated Diagnoses Orde r Schedule COVID-19 (SARS-COV-2) Lab Request Microbiology Routine Complex regional pain syndrome type 1 of left upper extremity Expected: 01/21/2020, Expires: 01/20/2021 documented as of this encounter Goals Goal [...] and he was provided today with a [facility] ongoing OT LTG 2 Occupational Therapy No Maida Benito, OT Note: Patient will decrease Quick Dash score from 79.5 to 10 or less in order to complete functional tasks with greater ease x 12 weeks 06/18/2019 Scored the same today, ongoing OT LTG 3 Occupational Therapy No Maida Benito, OT Note: Patient will increase L lead auditor strength (4lbs) to 60 lbs or more in order to open pill bottles with greater ease x12 weeks Patient will increase L lateral pinch (3.5), L tip pinch (2.5), L 3 jaw pinch (2.5) by 5 lbs each in order for greater ease with typing x12 weeks. 06/18/2019 L lead auditor- 20 lbs L lateral pinch- 6.2 Tip [...] documented as of this encounter Care Teams Channel Development Manager Relationship Specialty Start Date End Date Jacqueline Kay MD PCP - General Family Medicine 11/01/17 04/28/21 Jacqueline Kay MD PCP - General Family Medicine 04/29/21 01/15/22 Jacqueline Kay MD PCP - [employer] Attributed 06/06/20 07/05/20 Stephanie Darnell APRN [address] [phone] PCP - [employer] Attributed 07/06/20 10/03/20 Stephanie Darnell APRN [address] [phone] PCP - [employer] Attributed 05/06/21 11/03/21 Madhav Mcfadden MD [address] [place] [address] PCP - General Family Medicine 01/16/22 Jacqueline Kay MD PCP - [employer] Attributed 11/04/21 07/05/22 Madhav Mcfadden MD [address] [employer] [place] [phone] (Work) PCP - [employer] Attributed 07/06/22 07/05/23 Jacqueline Kay MD Family Medicine 04/29/21 03/30/22 Cathleen Allan MD [address] [place] [address] 1022 [place] [phone] Urology 09/15/16 Pete Hester MD [address] [place] [address] Surgery, Orthopedic 08/15/19 Pati Armendariz, PhD [address] [place] [address] 435 [place] [address] Clinical Psychologist Psychology 09/16/21 Yasmine Cohen, RN [address] [place] [address] [employer] Faculty Member 07/21/22 08/26/23 Bre Almaguer, RN [address] [address] [employer] Faculty Member 10/03/22 11/13/22 Romero Pryor MD [address] [place] [address] Cardiovascular Disease 02/05/23 Prerna Paulino MD [address] [place] [address] Internal Medicine 07/04/24 Magda Davis MD [address] [place] [address] Gastroenterology 07/04/24 [place] [address] [place] [address] Endocrinology 07/04/24 Ifeoma Hanson MD [facility] [place] [address] Endocrinology 11/26/24 documented as of this encounter
--- OUTSIDE RECORDS SUMMARY | 2025-07-24 20:33 | XMS_ITS | Encounter Summary ---
Author Organization [facility] Address [address] [place] [address] Care Team Providers Care Classroom Technology Technician Name Role Phone Jacqueline Kay MD Primary Care Provider Unava ilable Jacqueline Kay MD Primary Care Provider Unava ilable Jacqueline Kay MD Unavailable Unavailable Jacqueline Kay MD Unavailable Unavailable Stephanie Darnell I LOCKSTITCH SLEEVE SETTER Unavailable [phone] Stephanie Darnell I LOCKSTITCH SLEEVE SETTER Unavailable [phone] Cathleen Allan MD Unavailable [phone] Pete Hester MD Unavailable [phone] Pati Armendariz PhD Unavailabl e Madhav Mcfadden MD Primary Care Provider [phone] Jacqueline Kay MD Unavailable Unavailable Yasmine Cohen RN Unavailable Unavaila ble Bre Almaguer RN Unavailable [phone] Madhav Mcfadden MD Unavailable [phone] Romero Pryor MD Unavailable [phone] Prerna Paulino MD Unavailable [phone] Magda Davis MD Unavailable [phone] Ifeoma Hanson MD Unavailable Ifeoma Hanson MD Unavailable [phone] Encounter Details Date Type Department Care Team (Late st Contact Info) Description 12/05/2019 Scanned Document [facility] [address] [place] [address] [place] [address] Jacqueline Kay MD Social History Tobacco Use [...] have Coronavirus / COVID-19? Unable to assess 12/02/2019 9:31 AM EDT documented as of this encounter Plan of Treatment Upcoming Encounters Date Type Department Care Team (Late st Contact Info) Description 2025 8:00 AM EST Office Visit [address] [phone] Madhav Mcfadden MD [address] [place] [address] 09/01/2025 9:20 AM EST Office Visit [id number] [address] [phone] Reji Mi DO [address] [address] 09/29/2025 9:20 AM EST Office Visit [id number] [address] [phone] Reji Mi, DO [address] [place] [address] 10/27/2025 9:40 AM EDT Office Visit [id number] [address] [place] [address] Reji Mi, DO [address] [place] [address] 12/01/2025 9:40 AM EDT Office Visit [id number] [address] [place] [phone] Reji Mi, DO [address], [place] [phone] 02/03/2026 9:30 AM EDT Telemedicine [facility] Endocrinology [address] [phone] Ifeoma Hanson MD [address] [place] [address] [phone] documented as of this encounter Goals Goal [...] Benito, OT Note: Patient will increase L portfolio specialist strength (4lbs) to 60 lbs or more in order to open pill bottles with greater ease x12 weeks Patient will increase L lateral pinch (3.5), L tip pinch (2.5), L 3 jaw pinch (2.5) by 5 lbs each in order for greater ease with typing x12 weeks. 06/18/2019 L portfolio specialist- 20 lbs L lateral pinch- 6.2 [...] documented as of this encounter Care Teams Classroom Technology Technician Relationship Specialty Start Date End Date Jacqueline Kay MD PCP - General Family Medicine 11/01/17 04/28/21 Jacqueline Kay MD PCP - General Family Medicine 04/29/21 01/15/22 Jacqueline Kay MD PCP - [employer] Attributed 06/06/20 07/05/20 Stephanie Darnell I, LOCKSTITCH SLEEVE SETTER [address] [phone] PCP - [employer] Attributed 07/06/20 10/03/20 Stephanie Darnell APRN [address] [phone] PCP - [employer] Attributed 05/06/21 11/03/21 Madhav Mcfadden MD [address] [place], [place] [address] PCP - General Family Medicine 01/16/22 Jacqueline Kay MD PCP - [employer] Attributed 11/04/21 07/05/22 Madhav Mcfadden MD [address] [place] [address] PCP - [employer] Attributed 07/06/22 07/05/23 Jacqueline Kay MD Family Medicine 04/29/21 03/30/22 Cathleen Allan MD [address] [address] Urology 09/15/16 Pete Hester MD [address] [place] [address] Surgery, Orthopedic 08/15/19 Pati Armendariz, PhD [address] [place] [address] Clinical Psychologist Psychology 09/16/21 Yasmine Cohen, RN [facility] [address] Community Ip Counsel 07/21/22 08/26/23 Bre Almaguer, RN [address] [address] [facility] Community Ip Counsel 10/03/22 11/13/22 Romero Pryor MD [address] [place] [address] Cardiovascular Disease 02/05/23 Prerna Paulino MD [address] [place] [address] Internal Medicine 07/04/24 Magda Davis MD [address] [place] [address] Gastroenterology 07/04/24 Ifeoma Hanson MD [address] [place] [address] Endocrinology 07/04/24 Ifeoma Hanson MD [address] [place] [address] Endocrinology 11/26/24 documented as of this encounter
--- OUTSIDE RECORDS SUMMARY | 2025-07-24 20:33 | XMS_ITS | Encounter Summary ---
Author Organization [facility] Address [address] [place] [address] Care Team Providers Care Hydrogen Cell Tender Name Role Phone Jacqueline Kay MD Primary Care Provider Unava ilable Jacqueline Kay MD Primary Care Provider Unava ilable Jacqueline Kay MD Unavailable Unavailable Jacqueline Kay MD Unavailable Unavailable Stephanie Darnell I BOAT ASSEMBLER Unavailable [phone] Stephanie Darnell I BOAT ASSEMBLER Unavailable [phone] Cathleen Allan MD Unavailable [phone] Pete Hester MD Unavailable [phone] Pati Armendariz PhD Unavailabl e Madhav Mcfadden MD Primary Care Provider [phone] Jacqueline Kay MD Unavailable Unavailable Yasmine Cohen RN Unavailable Unavaila ble Bre Almaguer RN Unavailable [phone] Madhav Mcfadden MD Unavailable [phone] Romero Pryor MD Unavailable [phone] Prerna Paulino MD Unavailable [phone] Magda Davis MD Unavailable [phone] Ifeoma Hanson MD Unavailable Ifeoma Hanson MD Unavailable Encounter Details Date Type Department Care Team (Late st Contact Info) Description 07/24/2019 Prep for Surgery [facility] [address] [place] [address] [address] [place] [phone] Bal Dill MD 100 [facility] 900 [place] [address] Complex regional pain syndrome type 1 of [...] Description 2025 8:00 AM EST Office Visit [address] [phone] Madhav Mcfadden MD [address] [place] [address] 09/01/2025 9:20 AM EST Office Visit [facility] [id number] [address] [phone] Reji Mi DO [address] [place] [phone] 09/29/2025 9:20 AM EST Office Visit [id number] [address] [phone] Reji Mi DO [address], [place] [phone] 10/27/2025 9:40 AM EDT Office Visit [id number] [address] [place] [phone] Reji Mi, DO [address], [place] [phone] 12/01/2025 9:40 AM EDT Office Visit [id number] [address] [place] [phone] Reji Mi, DO [address], [place] [phone] 02/03/2026 9:30 AM EDT Telemedicine [facility] Endocrinology [address] [phone] Ifeoma Hanson MD [address] [place] [address] [phone] documented as of this encounter Goals Goal [...] Benito, OT Note: Patient will increase L residential finish carpenter strength (4lbs) to 60 lbs or more in order to open pill bottles with greater ease x12 weeks Patient will increase L lateral pinch (3.5), L tip pinch (2.5), L 3 jaw pinch (2.5) by 5 lbs each in order for greater ease with typing x12 weeks. 06/18/2019 L residential finish carpenter- 20 lbs L lateral pinch- 6.2 Tip [...] documented as of this encounter Care Teams Hydrogen Cell Tender Relationship Specialty Start Date End Date Jacqueline Kay MD PCP - General Family Medicine 11/01/17 04/28/21 Jacqueline Kay MD PCP - General Family Medicine 04/29/21 01/15/22 Jacqueline Kay MD PCP - [employer] Attributed 06/06/20 07/05/20 Stephanie Darnell I, BOAT ASSEMBLER [address] [phone] PCP - [employer] Attributed 07/06/20 10/03/20 Stephanie Darnell APRN [address] [phone] PCP - [employer] Attributed 05/06/21 11/03/21 Madhav Mcfadden MD 1554 [place], [place] 373864 PCP - General Family Medicine 01/16/22 Jacqueline Kay MD PCP - [employer] Commercial Attributed 11/04/21 07/05/22 Madhav Mcfadden MD 1559 [place], [place] 352534 PCP - [employer] Attributed 07/06/22 07/05/23 Jacqueline Kay MD Family Medicine 04/29/21 03/30/22 Cathleen Allan MD [address] [phone] Urology 09/15/16 Pete Hester MD [address] [place] [address] Surgery, Orthopedic 08/15/19 Anthony Gallegos, Pati Medina, PhD [address] [place] [place] [address] Clinical Psychologist Psychology 09/16/21 Yasmine Cohen, RN [facility] [address] Community Hide And Skin Classer 07/21/22 08/26/23 Bre Almaguer, RN [address] [address] [facility] Community Hide And Skin Classer 10/03/22 11/13/22 Romero Pryor MD [address] [place] [address] Cardiovascular Disease 02/05/23 Prerna Paulino MD [address] [place] [address] Internal Medicine 07/04/24 Magda Davis MD [address] [place] [address] Gastroenterology 07/04/24 Ifeoma Hanson MD [address] [place], [place] [phone] Endocrinology 07/04/24 Ifeoma Hanson MD [address] [place] [address] Endocrinology 11/26/24 documented as of this encounter
--- OUTSIDE RECORDS SUMMARY | 2025-07-24 20:33 | XMS_ITS | Encounter Summary ---
Author Organization [facility] Address [address] [place] [address] Care Team Providers Care Hearing Aid Repair Technician Name Role Phone Madhav Mcfadden MD Primary Care Provider [phone] Encounter Details Date Type Department Care Team ([facility] st Contact Info) Description 09/08/2024 Scanned Document [facility] SCHEDULING [address] [place], [place] [phone] Provider, Historical . Social History Tobacco Use [...] Info) Description 08/05/2025 1:40 PM EST [facility] [address] [place] [address]. [place] [address] Bal Villavicencio MD Corporate [facility] B-[address] [place] [phone] 08/11/2025 4:00 PM EST Evaluation [facility] 200 [place] [address] Kerry Kaba MD 200 [facility] 204 [place] [phone] 08/17/2025 1:00 PM EST Office Visit [facility] at [address] [place] [address] Petrona Nesbitt PA [address] [place] [phone] 09/04/2025 10:15 AM EST Follow Up [facility] at [address] [place] [address] Carlos Lo MD [address] [place] [phone] 10/20/2025 4:00 PM EDT Telemedicine [facility] 40 [facility] 1[address] [place] [address] Prerna Paulino MD [address] [phone] 10/29/2025 9:00 AM EDT Office Visit [facility] [address] [place] [address] Petrona Nesbitt PA [address] [place] [phone] 12/10/2025 10:00 AM EDT Office Visit [facility] [address] [place] [address], [place] [address] Petrona Nesbitt PA [address] [place] [phone] 01/21/2026 10:00 AM EDT Office Visit [facility] [address] [place] [address], [place] [address] Petrona Nesbitt PA [address] [place] [phone] 03/04/2026 10:00 AM EDT Office Visit [facility] [address] [place] [address] Petrona Nesbitt PA [address] [place] [phone] 04/15/2026 10:30 AM EDT Office Visit [facility] [address] [place] [address] Ebonie Crowley MD [address] [place] [phone] documented as of this encounter Procedures Procedure Name Priority Date/Time Associated Diagnosis Comments LAB SCAN Routine 09/05/2024 8:28 PM EST documented in this encounter Results * Lab Scan (09/05/2024 8:28 PM EST) us Historical Provider LAB BLOOD ORDERABLES Final R esult documented in this encounter Visit Diagnoses Not on filedocumented in this encounter Additional Health Concerns Assessment Noted Time PHQ-9 Depression Total Score: 0 08/18/19 6:00 PM EST documented as of this encounter Care Teams Hearing Aid Repair Technician Relationship Specialty Start Date End Date Madhav Mcfadden MD [address] [place] [address] PCP - General Family Medicine 08/20/23 documented as of this encounter
--- OUTSIDE RECORDS SUMMARY | 2025-07-24 20:33 | XMS_ITS | Encounter Summary ---
Author Organization [facility] Address [address] [place] [address] Care Team Providers Care Incinerator Plant General Supervisor Name Role Phone Cathleen Allan MD Unavailable [phone] Pete Hester MD Unavailable [phone] Pati Armendariz PhD Unavailabl e Madhav Mcfadden MD Primary Care Provider [phone] Yasmine Cohen RN Unavailable Unavaila ble Romero Pryor MD Unavailable [phone] Prerna Paulino MD Unavailable [phone] Magda Davis MD Unavailable [phone] Ifeoma Hanson MD Unavailable [phone] Ifeoma Hanson MD Unavailable [phone] Encounter Details Date Type Department Care Team (Late st Contact Info) Description 07/17/2023 Scanned Document [facility] Endocrinology [place] [address] [place] [phone] Ifeoma Hanson MD [address] [place] [phone] Social History Tobacco Use Types Packs/Day Years [...] place to sleep or slept in a longterm (including now)? No 04/02/2023 Sex and Gender [...] 2025 8:00 AM EST Office Visit [address] [phone] Madhav Mcfadden MD [address] [place] [phone] 09/01/2025 9:20 AM EST Office Visit [id number] [address] [phone] Reji Mi, DO [address] [place] [address] 09/29/2025 9:20 AM EST Office Visit [id number] [address] [phone] Reji Mi, DO [address] [place] [address] 10/27/2025 9:40 AM EDT Office Visit [id number] [address] [phone] Reji Mi, DO [address] [place] [address] 12/01/2025 9:40 AM EDT Office Visit [facility] [id number] [address] [phone] Reji Mi, DO [address] [place] [address] 02/03/2026 9:30 AM EDT Telemedicine [facility] Endocrinology [address] [phone] Ifemoa Hanson MD [address] [place] [address] documented as of this encounter Goals Goal [...] he was provided today with a [facility] ongoing OT LTG 2 Occupational Therapy No Maida Benito, DON Note: Patient will decrease Quick Dash score from 79.5 to 10 or less in order to complete functional tasks with greater ease x 12 weeks 06/18/2019 Scored the same today, ongoing OT LTG 3 Occupational Therapy No Maida Benito, OT Note: Patient will increase L mobile therapist strength (4lbs) to 60 lbs or more in order to open pill bottles with greater ease x12 weeks Patient will increase L lateral pinch (3.5), L tip pinch (2.5), L 3 jaw pinch (2.5) by 5 lbs each in order for greater ease with typing x12 weeks. 06/18/2019 L mobile therapist- 20 lbs L lateral pinch- 6.2 Tip [...] on filedocumented in this encounter Care Teams Incinerator Plant General Supervisor Relationship Specialty Start Date End Date Madhav Mcfadden MD [address] [place] [address] PCP - General Family Medicine 01/16/22 Cathleen Allan MD Urology 09/15/16 Pete Hester MD [address] [address] Surgery, Orthopedic 08/15/19 Pati Armendariz, PhD [address] [place] [address] 435 [place] [address] Clinical Psychologist Psychology 09/16/21 Yasmine Cohen, RN 1556 [place] [address] [facility] Community Brain Wave Technician 07/21/22 08/26/23 Romero Pryor MD 305 [place] [address] Cardiovascular Disease 02/05/23 Prerna Paulino MD [address] [place] [address] Internal Medicine 07/04/24 Magda Davis MD [address] [place] [address] Gastroenterology 07/04/24 Ifeoma Hanson MD [address] [place] [address] Endocrinology 07/04/24 Ifeoma Hanson MD [address] [place] [address] Endocrinology 11/26/24 documented as of this encounter
--- OUTSIDE RECORDS SUMMARY | 2025-07-24 20:33 | XMS_ITS | Encounter Summary ---
Author Organization [facility] Address [address] [place] [address] Care Team Providers Care Backside Grinder Name Role Phone Cathleen Allan MD Unavailable [phone] Pete Hester MD Unavailable [phone] Pati Armendariz PhD Unavailabl e Madhav Mcfadden MD Primary Care Provider [phone] Romero Pryor MD Unavailable [phone] Prerna Paulino MD Unavailable [phone] Magda Davis MD Unavailable [phone] Ifeoma Hanson MD Unavailable [phone] Ifeoma Hanson MD Unavailable + [phone] Encounter Details Date Type Department Care Team (Late st Contact Info) Description 06/15/2025 Scanned Document [facility] CARDIOLOGY SCAN Cardiology, Scan Social History Tobacco Use Types Packs/Day Years Used Date Smoking Tobacco: Never Passive Smoke Exposure: Past Smokeless Tobacco: Never Alcohol Use Standard Drinks/Week Comments Not Currently 0 (1 standard drink = 0.6 oz pur e alcohol) [facility] Utilities Answer Date Recorded In the past 12 months has [employer] electric, gas, oil, or water company threatened to shut off services in your home? No 09/18/2024 Social Connection and Isolation Panel Answer Date Recorded In a typical week, how many times do you talk on the phone with family, friends, or neighbors? More than three times a week 09/18/2024 Frequency of Social Gatherin gs with Friends and Family Not on file 09/18/2024 Attends [employer] Not on file 09/18 Active Member [...] Answer Date Recorded PHQ-2 Total Score 2 06/10/2025 Hunger Vital Sign Answer Date Recorded Within [...] place to sleep or slept in a long term (including now)? No 04/02/2023 Housing Stability Vital [...] time in the past 12 m [facility], were you homeless or living in a long term (including now)? No 09/18/2024 Physical Activity Answer [...] Description 2025 8:00 AM EST Office Visit [address] [phone] Madhav Mcfadden MD [address] [place] [address] 09/01/2025 9:20 AM EST Office Visit [id number] [address] [phone] Reji Mi, DO [address] [place] [phone] 09/29/2025 9:20 AM EST Office Visit [id number] [address] [phone] Rjei Mi, DO [address] [phone] 10/27/2025 9:40 AM EDT Office Visit [id number] [address] [place] [phone] Reji Mi, DO [address], [place] [phone] 12/01/2025 9:40 AM EDT Office Visit [id number] [address] [place] [phone] ShmuelReji Joni, DO [address] [phone] 02/03/2026 9:30 AM EDT [facility] Endocrinology [place] [address] [place] [phone] Ifeoma Hanson MD [address] [place] [address] [phone] documented as of this encounter Goals Goal [...] Benito, OT Note: Patient will increase L admissions specialist strength (4lbs) to 60 lbs or more in order to open pill bottles with greater ease x12 weeks Patient will increase L lateral pinch (3.5), L tip pinch (2.5), L 3 jaw pinch (2.5) by 5 lbs each in order for greater ease with typing x12 weeks. 06/18/2019 L admissions specialist- 20 lbs L lateral pinch- 6.2 [...] documented as of this encounter Care Teams Backside Grinder Relationship Specialty Start Date End Date Madhav Mcfadden MD [address] [place], [place] [phone] PCP - General Family Medicine 01/16/22 Cathleen Allan MD Urology 09/15/16 Pete Hester MD [address] [place] [address] Surgery, Orthopedic 08/15/19 Pati Armendariz, PhD [address] [place] [address] Clinical Psychologist Psychology 09/16/21 Romero Pryor MD [address] [place] [address] Cardiovascular Disease 02/05/23 Prerna Paulino MD [address] [place] [address] Internal Medicine 07/04/24 Magda Davis MD [address] [place] [address] Gastroenterology 07/04/24 Ifeoma Hanson MD [address] [place] [address] Endocrinology 07/04/24 Ifeoma Hanson MD [facility] [place] [address] Endocrinology 11/26/24 documented as of this encounter
--- OUTSIDE RECORDS SUMMARY | 2025-07-24 20:33 | XMS_ITS ---
Care Plan Created on: July 24, 2025 Andrea Torres : 1985 Sex: Male Author Organization [facility] Address [address] [place] [address] Care Team Providers Care Platform Supervisor Name Role Phone Cathleen Allan MD Unavailable [phone] Pete Hester MD Unavailable [phone] Pati Armendariz PhD Unavailabl e Madhav Mcfadden MD Primary Care Provider [phone] Romero Pryor MD Unavailable Prerna Paulino MD Unavailable [phone] Magda Davis MD Unavailable [phone] Ifeoma Hanson MD Unavailable [phone] Ifeoma Hanson MD Unavailable [phone] Active Problems * This document contains information received from the source organization and may not represent a complete record from that organization. 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 Will also establish care with a PCP. Therapeutic drug monitoring 12/16/2021 10/18/2022 Polymicrobial bacterial infection 12/04/2021 10/18/2022 Infection of humerus 11/18/2021 023 Overview (10/17/2022): Added automatically from request for surgery [id number] Post-operative infection 11/18/2021 Dysphagia 10/31/2021 10/18/2022 Overview [...] MD Attending Physician - Infectious Disease Division [facility] Surgery, elective 10/27/2021 10/18/2022 Overview (10/17/2022): L brachial plexus exploration, distal ulnar nerve release, carpal tunnel release, PIN neurolysis, median nerve and elbow neurolysis, vascularized supraclavicular lymph node free flap to elbow 10/18/21 Dr Cruz Status post surgery 10/18/2021 10/19/19 Dehydration, moderate 10/16/20212022 Contusion of right hand 10/11/202110/04 Injury of left brachial plexus 09/26/2021 10/18/2022 Adjustment disorder with mix ed anxiety and depressed mood 09/20/2021 09/26/2024 Chronic pain disorder 08/14/20202022 Nervous system device, impla nt, or graft infection or inflammation 08/14/2020 10/18/2022 Anxiety 08/14/2020 09/26/2024 HTN (hypertension) 08/14/2020 3 Cellulitis 08/04/2020 01/16/2022 Complex regional pain syndro [...] 0 01/16/2022 Other malaise and fatigue 08/26/2013 Additional Health Concerns Active Problems Noted Date Diagnosed Date Pain 09/26/2024 Goals Goal Patient Goal Type Associated Problems Recent Progress Patient-Stated? Author OT LTG 1 Occupational Therapy No Maida Benito, DON Note: Patient will be independent with HEP for strengthening, desensitization, and coordination x12 weeks. 06/18/2019 He is independent with a desensitization HEP including scrubbing and using a rough cloth over arm, a theraputty HEP, and he was provided today with a [facility] HEP., ongoing OT LTG 2 Occupational Therapy No Maida Benito, DON Note: Patient will decrease Quick Dash score from 79.5 to 10 or less in order to complete functional tasks with greater ease x 12 weeks 06/18/2019 Scored the same today, ongoing OT LTG 3 Occupational Therapy No Maida Benito, DON Note: Patient will increase L instructional aide strength (4lbs) to 60 lbs or more in order to open pill bottles with greater ease x12 weeks Patient will increase L lateral pinch (3.5), L tip pinch (2.5), L 3 jaw pinch (2.5) by 5 lbs each in order for greater ease with typing x12 weeks. 06/18/2019 L instructional aide- 20 lbs L lateral pinch- 6.2 Tip [...] Care Plan Pain No Pati Armendariz, PhD Interventions Care Plan Interventions Intervention Entry Date Outcome Reinforce the client's positive, reality-based cognitive messages that enhance self-esteem, confidence, and increase adaptive action. 09/27/2024 Note:Reinforce the client's positive, reality-based cognitive messages that enhance self-esteem, confidence, and increase adaptive action. Frequency: {Freq:[id number]} Duration: Modality: {Modality:[id number]} Notes: Andrea Torres will engage in other coping techniques 09/26/2024 Note:Shravan Torres will engage in other coping techniques taught in session (I.e., pacing, assertiveness training, self-monitoring- worksheets, deep diaphragmatic breathing) at least at least once a day. Task: Cognitive-behavioral therapy, Supportive Psychotherapy, Solution Focus therapy Frequency: Weekly Duration:30-45 min Modality: Individual psychotherapy Notes: Related Goals and Interventions Goal Associated Intervent ions Andrea Torres Stated Goals: I no longer have the motivation to do things Andrea Torres will engage in other copin g techniques Develop an enhanced capacity for emotional expression that enables adaptive coping with frustration, and other emotions Reinforce the client's positive, reality-based cognitive messages that enhance self-esteem, confidence, and increase adaptive action.
--- OUTSIDE RECORDS SUMMARY | 2025-07-24 20:33 | XMS_ITS | Encounter Summary ---
Author Organization [facility] Address [address] [place] [address] Care Team Providers Care Scenario Writer Name Role Phone Jacqueline Kay MD Primary Care Provider Unava ilable Jacqueline Kay MD Primary Care Provider Unava ilable Jacquleine Kay MD Unavailable Unavailable Jacqueline Kay MD Unavailable Unavailable Stephanie Darnell I PROFESSOR OF NURSING Unavailable [phone] Stephanie Darnell I PROFESSOR OF NURSING Unavailable [phone] Cathleen Allan MD Unavailable [phone] Pete Hester MD Unavailable [phone] Pati Armendariz PhD Unavailabl e Madhav Mcfadden MD Primary Care Provider [phone] Jacqueline Kay MD Unavailable Unavailable Yasmine Cohen RN Unavailable Unavaila ble Bre Almaguer RN Unavailable [phone] Madahv Mcfadden MD Unavailable [phone] Romero Pryor MD Unavailable [phone] Prerna Paulino MD Unavailable [phone] Magda Davis MD Unavailable [phone] Ifeoma Hanson MD Unavailable [phone] Ifeoma Hanson MD Unavailable Encounter Details Date Type Department Care Team (Late st Contact Info) Description 12/11/2019 Scanned Document [facility] [address] [place] [address] [place] [address] Jacqueline Kay MD Social History Tobacco Use [...] have Coronavirus / COVID-19? No / Unsure 12/10/2019 9:55 AM EDT documented as of this encounter Plan of Treatment Upcoming Encounters Date Type Department Care Team (Late st Contact Info) Description 2025 8:00 AM EST Office Visit [address] [phone] Madhav Mcfadden MD [address] [place] [address] 09/01/2025 9:20 AM EST Office Visit [id number] [address] [phone] Reji Mi DO [address] [address] 09/29/2025 9:20 AM EST Office Visit [id number] [address] [phone] ShmuelReji silver, DO [address] [place] [address] 10/27/2025 9:40 AM EDT Office Visit [id number] [address] [place] [address] Reji Mi, DO [address] [place] [address] 12/01/2025 9:40 AM EDT Office Visit [id number] [address] [place] [phone] Reji Mi, DO [address], [place] [phone] 02/03/2026 9:30 AM EDT Telemedicine [facility] Endocrinology [address] [phone] Ifeoma Hanson MD [address] [place] [address] [phone] documented as of this encounter Goals Goal [...] OT Note: Patient will increase L animal science instructor strength (4lbs) to 60 lbs or more in order to open pill bottles with greater ease x12 weeks Patient will increase L lateral pinch (3.5), L tip pinch (2.5), L 3 jaw pinch (2.5) by 5 lbs each in order for greater ease with typing x12 weeks. 06/18/2019 L animal science instructor- 20 lbs L lateral pinch- 6.2 Tip [...] documented as of this encounter Care Teams Scenario Writer Relationship Specialty Start Date End Date Jacqueline Kay MD PCP - General Family Medicine 11/01/17 04/28/21 Jacqueline Kay MD PCP - General Family Medicine 04/29/21 01/15/22 Jacqueline Kay MD PCP - [employer] Attributed 06/06/20 07/05/20 Stephanie Darnell I, PROFESSOR OF NURSING [address] [phone] PCP - [employer] Attributed 07/06/20 10/03/20 Stephanie Darnell APRN [address] [phone] PCP - [employer] Attributed 05/06/21 11/03/21 Madhav Mcfadden MD [address] [place], [place] [address] PCP - General Family Medicine 01/16/22 Jacqueline Kay MD PCP - [employer] Attributed 11/04/21 07/05/22 Madhav Mcfadden MD [address] [place] [address] PCP - [employer] Attributed 07/06/22 07/05/23 Jacqueline Kay MD Family Medicine 04/29/21 03/30/22 Cathleen Allan MD [address] [phone] Urology 09/15/16 Pete Hester MD [address] [place] [address] Surgery, Orthopedic 08/15/19 Pati Armendariz, PhD [address] [place] [address] Clinical Psychologist Psychology 09/16/21 Yasmine Cohen, RN [facility] [address] Community Economic Development Coordinator 07/21/22 08/26/23 Bre Almaguer, RN [address] [address] [facility] Community Economic Development Coordinator 10/03/22 11/13/22 Romero Pryor MD [address] [place] [address] Cardiovascular Disease 02/05/23 Prerna Paulino MD [address] [place] [address] Internal Medicine 07/04/24 Magda Davis MD [address] [place] [address] Gastroenterology 07/04/24 Ifeoma Hanson MD [address] [place] [address] Endocrinology 07/04/24 Ifeoma Hanson MD [place] [address] Endocrinology 11/26/24 documented as of this encounter
--- OUTSIDE RECORDS SUMMARY | 2025-07-24 20:33 | XMS_ITS | Encounter Summary ---
Author Organization [facility] Address [address] [place] [address] Care Team Providers Care Furniture Dipper Name Role Phone Jacqueline Kay MD Primary Care Provider Unava ilable Jacqueline Kay MD Primary Care Provider Unava ilable Jacqueline Kay MD Unavailable Unavailable Jacqueline Kay MD Unavailable Unavailable Stephanie Darnell I FINANCIAL SERVICES MANAGER Unavailable [phone] Stephanie Darnell I FINANCIAL SERVICES MANAGER Unavailable [phone] Cathleen Allan MD Unavailable [phone] Pete Hester MD Unavailable [phone] Pati Armendariz PhD Unavailabl e Madhav Mcfadden MD Primary Care Provider [phone] Jacqueline Kay MD Unavailable Unavailable Yasmine Cohen RN Unavailable Unavaila ble Bre Almaguer RN Unavailable [phone] Madhav Mcfadden MD Unavailable [phone] Romero Pryor MD Unavailable [phone] Prerna Paulino MD Unavailable [phone] Magda Davis MD Unavailable [phone] Ifeoma Hanson MD Unavailable Ifeoma Hanson MD Unavailable Encounter Details Date Type Department Care Team (Late st Contact Info) Description 12/05/2019 Scanned Document [facility]eron [address] [place] [address] [place] [address] Jacqueline Kay MD Social History Tobacco Use [...] Description 2025 8:00 AM EST Office Visit [address] [phone] Madhav Mcfadden MD [address] [place] [address] 09/01/2025 9:20 AM EST Office Visit [id number] [address] [phone] Reji Mi DO [address] [address] 09/29/2025 9:20 AM EST Office Visit [id number] [address] [phone] Reji Mi, DO [address] [place] [address] 10/27/2025 9:40 AM EDT Office Visit [id number] [address] [place] [address] Reji Mi, DO [address] [place] [address] 12/01/2025 9:40 AM EDT Office Visit [id number] [address] [place] [phone] Reji Mi, DO [address], [place] [phone] 02/03/2026 9:30 AM EDT Telemedicine [facility] Endocrinology [address] [phone] Ifeoma Hanson MD [address] [place] [address] [phone] documented as of this encounter Goals Goal Patient Goal Type Associated Problems Recent Progress Patient-Stated? Author OT LTG 1 Occupational Therapy No Maiad Benito, DON Note: Patient will be independent with HEP for strengthening, desensitization, and coordination x12 weeks. 06/18/2019 He is independent with a desensitization HEP including scrubbing and using a rough cloth over arm, a theraputty HEP, and he was provided today with a [facility] HEP., ongoing OT LTG 2 Occupational Therapy No Maida Benito, OT Note: Patient will decrease Quick Dash score from 79.5 to 10 or less in order to complete functional tasks with greater ease x 12 weeks 06/18/2019 Scored the same today, ongoing OT LTG 3 Occupational Therapy No Maida Benito, OT Note: Patient will increase L director of database marketing strength (4lbs) to 60 lbs or more in order to open pill bottles with greater ease x12 weeks Patient will increase L lateral pinch (3.5), L tip pinch (2.5), L 3 jaw pinch (2.5) by 5 lbs each in order for greater ease with typing x12 weeks. 06/18/2019 L director of database marketing- 20 lbs L lateral pinch- 6.2 Tip [...] documented as of this encounter Care Teams Furniture Dipper Relationship Specialty Start Date End Date Jacqueline Kay MD PCP - General Family Medicine 11/01/17 04/28/21 Jacqueline Kay MD PCP - General Family Medicine 04/29/21 01/15/22 Jacqueline Kay MD PCP - [employer] Attributed 06/06/20 07/05/20 Stephanie Darnell I, FINANCIAL SERVICES MANAGER [address] [phone] PCP - [employer] Attributed 07/06/20 10/03/20 Stephanie Darnell APRN [address] [phone] PCP - [employer] Attributed 05/06/21 11/03/21 Madhav Mcfadden MD [address] [place] [address] PCP - General Family Medicine 01/16/22 Jacqueline Kay MD PCP - [employer] Attributed 11/04/21 07/05/22 Madhav Mcfadden MD [address] [place] [address] PCP - [employer] Attributed 07/06/22 07/05/23 Jacqueline Kay MD Family Medicine 04/29/21 03/30/22 Cathleen Allan MD [address] [phone] Urology 09/15/16 Pete Hester MD [address] [place] [address] Surgery, Orthopedic 08/15/19 Pati Armendariz, PhD [address] [place] [address] Clinical Psychologist Psychology 09/16/21 Yasmine Cohen, RN [facility] [address] Community Supervisor [place]eneer 07/21/22 08/26/23 Bre Almaguer, RN [address] [address] [facility] Community Supervisor [place] 10/03/22 11/13/22 Romero Pryor MD [address] [place] [address] Cardiovascular Disease 02/05/23 Prerna Paulino MD [address] [place] [address] Internal Medicine 07/04/24 Magda Davis MD [address] [place] [address] Gastroenterology 07/04/24 Ifeoma Hanson MD [address] [place] [address] Endocrinology 07/04/24 Ifeoma Hanson MD [address] [place] [address] Endocrinology 11/26/24 documented as of this encounter
--- OUTSIDE RECORDS SUMMARY | 2025-07-24 20:34 | XMS_ITS | Encounter Summary ---
Author Organization [facility] Address [address] [place] [address] Care Team Providers Care Land Leases And Rentals Manager Name Role Phone Cathleen Allan MD Unavailable [phone] Pete Hester MD Unavailable [phone] Pati Armendariz PhD Unavailabl e Madhva Mcfadden MD Primary Care Provider [phone] Yasmine Cohen RN Unavailable Unavaila ble Madhav Mcfadden MD Unavailable [phone] Romero Pryor MD Unavailable [phone] Prerna Paulino MD Unavailable [phone] Magda Davis MD Unavailable [phone] Ifeoma Hanson MD Unavailable [phone] Ifeoma Hanson MD Unavailable [phone] Encounter Details Date Type Department Care Team (Late st Contact Info) Description 01/22/2023 Scanned Document [facility] SCAN Pharmacy, Scan Social History Tobacco [...] care, and heating? Not hard at all 01/24/2023 PHQ-2 Answer Date Recorded PHQ-2 Total Score 6 09/20/2021 Hunger Vital Sign Answer Date Recorded Within the past 12 months, y ou worried that your food would run out before you got the money to buy more. Never true 01/25/20 23 Within the past 12 months, t he food you bought just didn't last and you didn't have money to get more. Never true 01/24/2023 PRAPARE - Transportation Answer Date Re corded In the past 12 months, has l ack of transportation kept you from medical appointments or from getting medications? No 01/05 In the past 12 months, has l ack of transportation kept you from meetings, work, or from getting things needed for daily living? No 01/24/2023 Housing Stability Vital Sign Answer Alden e Recorded In the last 12 months, was t here a time when you were not able to pay the mortgage or rent on time? No 01/24/2023 In the last 12 months, how many places have you lived? 1 01/24/2023 In the last 12 months, was t here a time when you did not have a steady place to sleep or slept in a detention (including now)? No 01/24/2023 Sex and Gender Information Value Date Recorded [...] suspected to have Coronavirus/COVID-19? No / Unsure 01/22/2023 9:44 PM EDT documented as of this encounter Functional Status * AUDIT-C Score Answer Date of Assessment Author 0 01/23/2023 8:31 PM EDT Beto Wallace RN * Question Answer Date of Assessment Author AUDIT-C Total Score - Male 0 01/23/2023 8:31 PM EDT Kortney Wallace RN Q1: How often do you have a drink containing alcohol? Never 01/23/2023 8:31 PM EDT Kortney Wallace RN Q2: How many drinks containing alcohol do you have on a typical day when you are drinking? Patient does not drink 01/23/2023 8:31 PM EDT Kortney Wallace RN Q3: How often do you have six or more drinks on one occasion? Never 01/23/2023 8:31 PM EDT Kortney Wallace RN * Level of Risk per Screen Answer Date of Assessment Author Low Risk 01/23/2023 8:31 PM TROYT Beto Wallace RN documented as of this encounter Plan of Treatment Upcoming Encounters Date Type Department Care Team (Late st Contact Info) Description 2025 8:00 AM EST Office Visit [address] [place] [phone] Madhav Mcfadden MD [address] [place] [address], [place] [address] 09/01/2025 9:20 AM EST Office Visit [id number] [address] [phone] Reji Mi, DO [address] [place] [phone] 09/29/2025 9:20 AM EST Office Visit [id number] [address] [phone] Reji Miil, DO [address] [place] [phone] 10/27/2025 9:40 AM EDT Office Visit [id number] [address] [place] [address] Reji Mi, DO [address], [place] [phone] 12/01/2025 9:40 AM EDT Office Visit [id number] [address] [place] [phone] Reji Miil, DO [address], [place] [phone] 02/03/2026 9:30 AM EDT Telemedicine [facility] Endocrinology [address] [phone] Ifeoma Hanson MD [address] [place] [address] documented as of this encounter Goals Goal [...] and he was provided today with a [facility] ongoing OT LTG 2 Occupational Therapy No Maida Benito, OT Note: Patient will decrease Quick Dash score from 79.5 to 10 or less in order to complete functional tasks with greater ease x 12 weeks 06/18/2019 Scored the same today, ongoing OT LTG 3 Occupational Therapy No Maida Benito, OT Note: Patient will increase L documentation consultant strength (4lbs) to 60 lbs or more in order to open pill bottles with greater ease x12 weeks Patient will increase L lateral pinch (3.5), L tip pinch (2.5), L 3 jaw pinch (2.5) by 5 lbs each in order for greater ease with typing x12 weeks. 06/18/2019 L documentation consultant- 20 lbs L lateral pinch- 6.2 [...] on filedocumented in this encounter Care Teams Land Leases And Rentals Manager Relationship Specialty Start Date End Date Madhav Mcfadden MD [address] [place] [address] PCP - General Family Medicine 01/16/22 Madhav Mcfadden MD [address] [phone] PCP - [employer] Commercial Attributed 07/06/22 07/05/23 Cathleen Allan MD Urology 09/15/16 Pete Hester MD [address] [place] [address] Surgery, Orthopedic 08/15/19 Pati Armendariz, PhD [address] [place] [address] Clinical Psychologist Psychology 09/16/21 Yasmine Cohen RN [address] [place] [address] Nuclear Test Technician 07/21/22 08/26/23 Romero Pryor MD [address] [place] [address] Cardiovascular Disease 02/05/23 Prerna Paulino MD [address] [place] [address] Internal Medicine 07/04/24 Magda Davis MD [address] [place] [address] Gastroenterology 07/04/24 Ifeoma Hanson MD [address] [place] [address] Endocrinology 07/04/24 Ifeoma Hanson MD [address] [place] [address] Endocrinology 11/26/24 documented as of this encounter
--- OUTSIDE RECORDS SUMMARY | 2025-07-24 20:34 | XMS_ITS | Encounter Summary ---
Author Organization [facility] Address [address] [place] [address] Care Team Providers Care Spring Maker Name Role Phone Jacqueline Kay MD Primary Care Provider Unava ilable Jacqueline Kay MD Primary Care Provider Unava ilable Jacqueline Kay MD Unavailable Unavailable Jacqueline Kay MD Unavailable Unavailable Stephanie Darnell I PLANNING CONSULTANT Unavailable [phone] Stephanie Darnell I PLANNING CONSULTANT Unavailable [phone] Cathleen Allan MD Unavailable [phone] Pete Hester MD Unavailable [phone] Pati Armendariz PhD Unavailabl e Madhav Mcfadden MD Primary Care Provider [phone] Jacqueline Kay MD Unavailable Unavailable Yasmine Cohen RN Unavailable Unavaila ble Bre Almaguer RN Unavailable [phone] Madhav Mcfadden MD Unavailable [phone] Romero Pryor MD Unavailable [phone] Prerna Paulino MD Unavailable [phone] Magda Davis MD Unavailable [phone] Ifeoma Hanson MD Unavailable Ifeoma Hanson MD Unavailable [phone] Encounter Details Date Type Department Care Team (Late st Contact Info) Description 10/02/2019 Scanned Document [facility] PRIMARY CARE SCAN Jacqueline Kay MD Social History Tobacco Use [...] Description 2025 8:00 AM EST Office Visit [address] [phone] Madhav Mcfadden MD [address] [place] [address] 09/01/2025 9:20 AM EST Office Visit [id number] [address] [phone] Reji Mi, DO [address] [place] [phone] 09/29/2025 9:20 AM EST Office Visit [id number] [address] [phone] Reji Mi, DO [address] [phone] 10/27/2025 9:40 AM EDT Office Visit [id number] [address] [phone] Shmuel Reji Joni, DO [address], [place] [phone] 12/01/2025 9:40 AM EDT Office Visit [id number] [address] [place] [address] Shmuel Reji Joni, DO [address], [place] [phone] 02/03/2026 9:30 AM EDT Telemedicine [facility] Endocrinology [place] [address] [place] [phone] [place] [address] [place] [address] [phone] documented as of this encounter Goals Goal [...] and he was provided today with a [facility]., ongoing OT LTG 2 Occupational Therapy No Maida Benito, OT Note: Patient will decrease Quick Dash score from 79.5 to 10 or less in order to complete functional tasks with greater ease x 12 weeks 06/18/2019 Scored the same today, ongoing OT LTG 3 Occupational Therapy No Maida Benito, DON Note: Patient will increase L auction block clerk strength (4lbs) to 60 lbs or more in order to open pill bottles with greater ease x12 weeks Patient will increase L lateral pinch (3.5), L tip pinch (2.5), L 3 jaw pinch (2.5) by 5 lbs each in order for greater ease with typing x12 weeks. 06/18/2019 L auction block clerk- 20 lbs L lateral pinch- 6.2 Tip [...] documented as of this encounter Care Teams Spring Maker Relationship Specialty Start Date End Date Jacqueline Kya MD PCP - General Family Medicine 11/01/17 04/28/21 Jacqueline Kay MD PCP - General Family Medicine 04/29/21 01/15/22 Jacqueline Kay MD PCP - [employer] Commercial Attributed 06/06/20 07/05/20 Stephanie Darnell I, PLANNING CONSULTANT [address] [phone] PCP - [employer] Commercial Attributed 07/06/20 10/03/20 Stephanie Darnell I, PLANNING CONSULTANT [address] [address] PCP - [employer] Commercial Attributed 05/06/21 11/03/21 Madhav Mcfadden MD [address] [place] [address] PCP - General Family Medicine 01/16/22 Jacqueline Kay MD PCP - [employer] Commercial Attributed 11/04/21 07/05/22 Madhav Mcfadden MD [address] [place] [address] PCP - [employer] Commercial Attributed 07/06/22 07/05/23 Jacqueline Kay MD Family Medicine 04/29/21 03/30/22 Cathleen Allan MD [address] [address] Urology 09/15/16 Pete Hester MD 31 [facility] [address] [place] [address] Surgery, Orthopedic 08/15/19 Pati Armendariz, PhD [address] [address] Clinical Psychologist Psychology 09/16/21 Yasmine Cohen, RN [address] [place] [address] ICP Community Uniform Room Attendant 07/21/22 08/26/23 Bre Almaguer, RN [address] [place] [address] [facility] [address] [place] [address] ICP Community Uniform Room Attendant 10/03/22 11/13/22 Romero Pryor MD [address] [place] [address] Cardiovascular Disease 02/05/23 Prerna Paulino MD [address] [place] [address] Internal Medicine 07/04/24 Magda Davis MD [address] [place] [address] Gastroenterology 07/04/24 Ifeoma Hanson MD [address] [place] [address] Endocrinology 07/04/24 Ifeoma Hanson MD [address] [place] [address] Endocrinology 11/26/24 documented as of this encounter
--- OUTSIDE RECORDS SUMMARY | 2025-07-24 20:34 | XMS_ITS | Encounter Summary ---
Author Organization [facility] Address [address] [place] [address] Care Team Providers Care Lead Atg Developer Name Role Phone Cathleen Allan MD Unavailable [phone] Pete Hester MD Unavailable [phone] Pati Armendariz PhD Unavailabl e Madhav Mcfadden MD Primary Care Provider [phone] Yasmine Cohen RN Unavailable Unavaila ble Romero Pryor MD Unavailable [phone] Prerna Paulino MD Unavailable [phone] Magda Davis MD Unavailable [phone] Ifeoma Hanson MD Unavailable [phone] Ifeoma Hanson MD Unavailable [phone] Encounter Details Date Type Department Care Team (Late st Contact Info) Description 08/13/2023 Scanned Document [facility] CARDIOLOGY SCAN Cardiology, Scan Social History Tobacco [...] you are drinking? Patient does not drink 3 Q3: How often do you have si [...] place to sleep or slept in a fpc (including now)? No 04/02/2023 Sex and Gender [...] Description 2025 8:00 AM EST Office Visit [address] [phone] Madhav Mcfadden MD [address] [place] [address] 09/01/2025 9:20 AM EST Office Visit [id number] [address] [phone] ShmuelReji burnett, DO [address] [place] [address] 09/29/2025 9:20 AM EST Office Visit [id number] [address] [phone] Reji Mi, DO [address] [place] [address] 10/27/2025 9:40 AM EDT Office Visit [id number] [address] [phone] ShumelReji Joni, DO [address] [place] [address] 12/01/2025 9:40 AM EDT Office Visit [id number] [address] [place] [phone] Reji Mi, DO [address] [place] [address] 02/03/2026 9:30 AM EDT Telemedicine [facility] Endocrinology [address] [phone] Ifeoma Hanson MD [address] [place] [address] documented as of this encounter Goals Goal [...] and he was provided today with a [facility] ongoing OT LTG 2 Occupational Therapy No Maida Benito, OT Note: Patient will decrease Quick Dash score from 79.5 to 10 or less in order to complete functional tasks with greater ease x 12 weeks 06/18/2019 Scored the same today, ongoing OT LTG 3 Occupational Therapy No Maida Benito OT Note: Patient will increase L packaging associate strength (4lbs) to 60 lbs or more in order to open pill bottles with greater ease x12 weeks Patient will increase L lateral pinch (3.5), L tip pinch (2.5), L 3 jaw pinch (2.5) by 5 lbs each in order for greater ease with typing x12 weeks. 06/18/2019 L packaging associate- 20 lbs L lateral pinch- 6.2 Tip [...] on filedocumented in this encounter Care Teams Lead Atg Developer Relationship Specialty Start Date End Date Madhav Mcfadden MD [address] [phone] PCP - General Family Medicine 01/16/22 Cathleen Allan MD Urology 09/15/16 Pete Hester MD [address] [place] [address] Surgery, Orthopedic 08/15/19 Pati Armendariz, PhD [address] [place] [address] Clinical Psychologist Psychology 09/16/21 Yasmine Cohen, RN [address] [place] [address] [facility] Community Student Development Specialist 07/21/22 08/26/23 Romero Pryor MD [address] [place] [address] Cardiovascular Disease 02/05/23 Prerna Paulino MD [address] [place] [address] Internal Medicine 07/04/24 Magda Davis MD [address] [place] [address] Gastroenterology 07/04/24 Ifeoma Hanson MD [address] [place] [address] Endocrinology 07/04/24 Ifeoma Hanson MD [address] [place] [address] Endocrinology 11/26/24 documented as of this encounter
--- OUTSIDE RECORDS SUMMARY | 2025-07-24 20:34 | XMS_ITS | Encounter Summary ---
Author Organization [facility] Address [address] [place] [address] Care Team Providers Care National Sales Executive Name Role Phone Cathleen Allan MD Unavailable [phone] Pete Hester MD Unavailable [phone] Pati Armendariz PhD Unavailabl e Madhav Mcfadden MD Primary Care Provider [phone] Romero Pryor MD Unavailable Prerna Paulino MD Unavailable [phone] Magda Davis MD Unavailable [phone] Ifeoma Hanson MD Unavailable [phone] Ifeoma Hanson MD Unavailable [phone] Encounter Details Date Type Department Care Team (Late st Contact Info) Description 06/19/2024 Scanned Document [facility] Endocrinology [place] [address] [place] [phone] Ifeoma Hanson MD [address] [place], [place] [phone] Social History Tobacco Use Types Packs/Day Years [...] in a halfway (including now)? No 04/02/2023 Sex and Gender [...] 2025 8:00 AM EST Office Visit [address] [phone] Madhav Mcfadden MD [address] [place] [address] 09/01/2025 9:20 AM EST Office Visit [id number] [address] [phone] Reji Miil, DO [address] [place] [address] 09/29/2025 9:20 AM EST Office Visit [id number] [address] [phone] ShmuelReji silveril, DO [address] [place] [address] 10/27/2025 9:40 AM EDT Office Visit [id number] [address] [phone] Reji Mi Joni, DO [address] [place] [address] 12/01/2025 9:40 AM EDT Office Visit [id number] [address] [phone] ShmuelReji burnett Joni, DO [address] [place] [address] 02/03/2026 9:30 AM EDT Telemedicine [facility] Endocrinology [address] [phone] Ifeoma Hanson MD [address] [place] [address] documented as of this encounter Goals Goal [...] he was provided today with a [facility]., ongoing OT LTG 2 Occupational Therapy No Maida Benito, DON Note: Patient will decrease Quick Dash score from 79.5 to 10 or less in order to complete functional tasks with greater ease x 12 weeks 06/18/2019 Scored the same today, ongoing OT LTG 3 Occupational Therapy No Maida Benito, OT Note: Patient will increase L shop repairer strength (4lbs) to 60 lbs or more in order to open pill bottles with greater ease x12 weeks Patient will increase L lateral pinch (3.5), L tip pinch (2.5), L 3 jaw pinch (2.5) by 5 lbs each in order for greater ease with typing x12 weeks. 06/18/2019 L shop repairer- 20 lbs L lateral pinch- 6.2 Tip [...] on filedocumented in this encounter Care Teams National Sales Executive Relationship Specialty Start Date End Date Madhav Mcfadden MD [address] [place] [address] PCP - General Family Medicine 01/16/22 Cathleen Allan MD Urology 09/15/16 Pete Hester MD [address] [place] [address] Surgery, Orthopedic 08/15/19 Pati Armendariz, PhD [address] [place] [address] Clinical Psychologist Psychology 09/16/21 Romero Pryor MD [address] [place] [address] Cardiovascular Disease 02/05/23 Prerna Paulino MD [address] [place] [address] Internal Medicine 07/04/24 Magda Davis MD [address] [place] [address] Gastroenterology 07/04/24 Ifeoma Hanson MD [address] [place] [address] Endocrinology 07/04/24 Ifeoma Hanson MD [address] [place] [address] Endocrinology 11/26/24 documented as of this encounter
--- OUTSIDE RECORDS SUMMARY | 2025-07-24 20:34 | XMS_ITS | Clinical Summary ---
Author Organization [facility] Prior to 01/03/25 Address [address] [place] [address] Care Team Providers Care Respite Coordinator Name Role Phone Unavailable Primary Care Provider Unavailabl e Allergies Active Allergy Reactions Criticality Noted Date Comments Pertussis Vaccines Other (See Comments) Low 016 Paralysis Paralysis Medications No known medications Active Problems Problem Noted Date Diagnosed Date Contusion of right hand 10/11/2021 Adjustment disorder with mixed anxiety and depre ssed mood 09/20/2021 Chronic pain disorder 07/25/2021 Cellulitis 08/04/2020 Nausea 06/28/2020 ADHD, adult residual type 05/19/2020 Lymphedema 09/29/2019 Nerve pain 09/13/2019 Complex regional pain syndro me type 1 of left upper extremity 06/18/2019 Bee sting reaction 04/07/2019 Nerve root inflammation 03/12/2019 Anxiety and depression 03/25/2018 Elevated liver function tests 01/23/2018 Hypothyroidism 01/23/2018 Obstructive sleep apnea on CPAP 01/23/2017 Attention deficit disorder 08/26/2013 Obesity (BMI 30.0-34.9) 08/26/2013 Overview: Description : BMI 31 Immunizations Name Administration Dates Next Due Covid-19 (J&J) 10/12/2020 Social History Tobacco Use Types Packs/Day Years Used Date Smoking Tobacco: Never Smokeless Tobacco: Never Alcohol Use Standard Drinks/Week Comments Yes 0 (1 standard drink = 0.6 oz pur e alcohol) social drinker Sex and Gender Information Value Date Recorded Sex Assigned at Male 10/12/2020 11:32 AM EST Gender Identity Male 09/22/2021 1:03 PM EST Sexual Orientation Not on file Job Start Date Occupation Industry Not on file Not on file Not on file Last Filed Vital Signs Vital Sign Reading Time Taken Comments Blood Pressure - - Pulse - - Temperature - - Respiratory Rate - - Oxygen Saturation - - Inhaled Oxygen Concentration - - Weight 111.9 kg (246 lb 12. 8 oz) 09/22/2021 11:29 AM EST with clothes Height 185.4 cm (6' 1 ) 09/22/2021 11:2 9 AM EST Body Mass Index 32.56 09/22/2021 11:29 AM EST Plan of Treatment Health Maintenance Due Date Last Done Comments Hepatitis B Vaccines (1 of 3 - 3-dose series) 1984 Hepatitis C Screening 1984 Depression Screening 1996 BMI Counseling 2002 Preventative Health Evaluation 2002 DTap / Tdap / Td (2 - Tdap) 01/08/2017 01/08/2007 COVID-19 Vaccine (2 - season) 2025 10/12/2020 Influenza Vaccine (#1) 2025 2, 04/17/2020, 06/20/2019, Additional history exists Pneumococcal Vaccine Aged Out 05/06/2020 No long er eligible based on patient's age to complete this topic RSV Ped < 20 months Aged Out No longe r eligible based on patient's age to complete this topic
--- OUTSIDE RECORDS SUMMARY | 2025-07-24 20:34 | XMS_ITS | Encounter Summary ---
Author Organization [facility] Address [address] [place] [address] Care Team Providers Care Transition Rn Name Role Phone Cathleen Allan MD Unavailable [phone] Pete Hester MD Unavailable [phone] Pati Armendariz PhD Unavailabl e Madhav Mcfadden MD Primary Care Provider [phone] Yasmine Cohen RN Unavailable Unavaila ble Madhav Mcfadden MD Unavailable [phone] Romero Pryor MD Unavailable [phone] Prerna Paulino MD Unavailable [phone] Magda Davis MD Unavailable [phone] Ifeoma Hanson MD Unavailable [phone] Ifeoma Hanson MD Unavailable +[phone] Encounter Details Date Type Department Care Team (Late st Contact Info) Description 11/22/2022 Scanned Document [facility] HOME HEALTH SCAN Home Health Services, Scan Social History Tobacco Use Types Packs/Day Years Used Date Smoking Tobacco: Never Smokeless Tobacco: Never Alcohol Use Standard Drinks/Week Comments Not Currently 0 (1 standard drink = 0.6 oz pur e alcohol) AUDIT-C Answer Date Recorded Q1: How often do you have a drink containing alcohol? Never 11/01/2022 Q2: How many drinks containi ng alcohol do you have on a typical day when you are drinking? Patient does not drink Q3: How often do you have si x or more drinks on one occasion? Never 11/01/2022 Overall Financial Resource Strain (CARDIA) Answe r Date Recorded How hard is it for you to pa y for the very basics like food, housing, medical care, and heating? Not very hard 11/06/2022 PHQ-2 Answer Date Recorded PHQ-2 Total Score 6 09/20/2021 Hunger Vital Sign Answer Date Recorded Within the past 12 months, y ou worried that your food would run out before you got the money to buy more. Never true 11/07/19 23 Within the past 12 months, t he food you bought just didn't last and you didn't have money to get more. Never true 11/06/2022 PRAPARE - Transportation Answer Date Re corded In the past 12 months, has l ack of transportation kept you from medical appointments or from getting medications? No 10/2022 In the past 12 months, has l ack of transportation kept you from meetings, work, or from getting things needed for daily living? No 11/06/2022 Housing Stability Vital Sign Answer Alden e Recorded In the last 12 months, was t here a time when you were not able to pay the mortgage or rent on time? No 11/06/2022 Number of Places Lived in the Last Year Not on f ile 11/06/2022 In the last 12 months, was t here a time when you did not have a steady place to sleep or slept in a fdc (including now)? No 11/06/2022 Sex and Gender Information Value Date Recorded [...] suspected to have Coronavirus/COVID-19? No / Unsure 10/31/2022 10:34 PM EDT documented as of this encounter Plan of Treatment Upcoming Encounters Date Type Department Care Team (Late st Contact Info) Description 2025 8:00 AM EST Office Visit [address] [phone] Madhav Mcfadden MD [address] [place] [phone] 09/01/2025 9:20 AM EST Office Visit [id number] [address] [phone] ShmuelReji burnettil, DO [address] [place] [address] 09/29/2025 9:20 AM EST Office Visit [id number] [address] [phone] ShmuelReji silver Joni, DO [address] [place] [phone] 10/27/2025 9:40 AM EDT Office Visit [id number] [address] [phone] Reji Miil, DO [address] [place] [address] 12/01/2025 9:40 AM EDT Office Visit [id number] [address] [phone] ShmuelReji burnett Joni, DO [address] [place] [address] 02/03/2026 9:30 AM EDT Telemedicine [facility] Endocrinology [address] [phone] Ifeoma Hanson MD [address] [place] [address] documented as of this encounter Goals Goal [...] and he was provided today with a [facility] HEP., ongoing OT LTG 2 Occupational Therapy No Maida Benito OT Note: Patient will decrease Quick Dash score from 79.5 to 10 or less in order to complete functional tasks with greater ease x 12 weeks 06/18/2019 Scored the same today, ongoing OT LTG 3 Occupational Therapy No Maida Benito, OT Note: Patient will increase L ice scraper strength (4lbs) to 60 lbs or more in order to open pill bottles with greater ease x12 weeks Patient will increase L lateral pinch (3.5), L tip pinch (2.5), L 3 jaw pinch (2.5) by 5 lbs each in order for greater ease with typing x12 weeks. 06/18/2019 L ice scraper- 20 lbs L lateral pinch- 6.2 Tip [...] weeks. OT LTG 6 Occupational Therapy No Thong Maida, OT Note: Patient will increase L shoulder abductors and IR's, elbow extensors, and wrist flexors/extensors (3+/5) to 5/5 in order to greater ease picking up young son x12 weeks Abductors- 3+ IR's- 5/5 Elbow extensors- 4/5 Wrist flexors-5/5 Wrist extensors- 4/5 Ongoing documented as of this encounter Visit Diagnoses Not on filedocumented in this encounter Care Teams Transition Rn Relationship Specialty Start Date End Date Madhav Mcfadden MD [address] [place] [address] PCP - General Family Medicine 01/16/22 Madhav Mcfadden MD [address] [place] [address] PCP - [employer] Commercial Attributed 07/06/22 07/05/23 Cathleen Allan MD Urology 09/15/16 Pete Hester MD [address] [place] [address] Surgery, Orthopedic 08/15/19 Pati Armendariz, PhD [address] [place] [address] Clinical Psychologist Psychology 09/16/21 Yasmine Cohen RN [address] [place] [address] [facility] Community Milling Planer Operator 07/21/22 08/26/23 Romero Pryor MD [address] [place] [address] Cardiovascular Disease 02/05/23 Prerna Paulino MD [address] [place] [address] Internal Medicine 07/04/24 Magda Davis MD [address] [place] [address] Gastroenterology 07/04/24 Ifeoma Hanson MD [address] [place] [address] Endocrinology 07/04/24 Ifeoma Hanson MD [address] [place] [address] Endocrinology 11/26/24 documented as of this encounter
--- OUTSIDE RECORDS SUMMARY | 2025-07-24 20:34 | XMS_ITS | Encounter Summary ---
Author Organization [facility] Address [address] [place] [address] Care Team Providers Care Teacher Name Role Phone Cathleen Allan MD Unavailable [phone] Pete Hester MD Unavailable [phone] Pati Armendariz PhD Unavailabl e Madhav Mcfadden MD Primary Care Provider [phone] Yasmine Cohen RN Unavailable Unavaila ble Romero Pryor MD Unavailable [phone] Prerna Paulino MD Unavailable [phone] Magda Davis MD Unavailable [phone] Ifeoma Hanson MD Unavailable [phone] Ifeoma Hanson MD Unavailable [phone] Encounter Details Date Type Department Care Team (Late st Contact Info) Description 07/17/2023 Scanned Document [facility] Endocrinology [place] [address] [place] [phone] Ifeoma Hanson MD [address] [place] [address] [phone] Social History Tobacco Use Types Packs/Day Years [...] place to sleep or slept in a long-term (including now)? No 04/02/2023 Sex and Gender [...] Description 2025 8:00 AM EST Office Visit [address] [phone] Madhav Mcfadden MD [address] [place] [address] [phone] 09/01/2025 9:20 AM EST Office Visit [id number] [address] [phone] Reji Mi, DO [address] [place] [address] 09/29/2025 9:20 AM EST Office Visit [id number] [address] [phone] Reji Mi, DO [address] [place] [address] 10/27/2025 9:40 AM EDT Office Visit [id number] [address] [phone] Reji Mi, DO [address] [place] [address] 12/01/2025 9:40 AM EDT Office Visit [id number] [address] [phone] Reji Mi, DO [address] [place] [address] 02/03/2026 9:30 AM EDT Telemedicine [facility] Endocrinology [address] [phone] Ifeoma Hanson MD [address] [place] [address] documented as of this encounter Goals Goal [...] provided today with a [facility] ongoing OT LTG 2 Occupational Therapy No Maida Benito, DON Note: Patient will decrease Quick Dash score from 79.5 to 10 or less in order to complete functional tasks with greater ease x 12 weeks 06/18/2019 Scored the same today, ongoing OT LTG 3 Occupational Therapy No Maida Benito, OT Note: Patient will increase L maintenance person strength (4lbs) to 60 lbs or more in order to open pill bottles with greater ease x12 weeks Patient will increase L lateral pinch (3.5), L tip pinch (2.5), L 3 jaw pinch (2.5) by 5 lbs each in order for greater ease with typing x12 weeks. 06/18/2019 L maintenance person- 20 lbs L lateral pinch- 6.2 Tip [...] on filedocumented in this encounter Care Teams Teacher Relationship Specialty Start Date End Date Madhav Mcfadden MD [address] [place] [address] PCP - General Family Medicine 01/16/22 Cathleen Allan MD Urology 09/15/16 Pete Hester MD [address] [address] Surgery, Orthopedic 08/15/19 Pati Armendariz, PhD [address] [place] [address] [address] [place] [address] Clinical Psychologist Psychology 09/16/21 Yasmine Cohen, RN [address] [place] [address] [facility] Community Professor Of Economics 07/21/22 08/26/23 Romero Pryor MD [address] [place] [address] Cardiovascular Disease 02/05/23 Prerna Paulino MD [address] [place] [address] Internal Medicine 07/04/24 Magda Davis MD [address] [place] [address] Gastroenterology 07/04/24 Ifeoma Hanson MD [address] [place] [address] Endocrinology 07/04/24 Ifeoma Hanson MD [address] [place] [address] Endocrinology 11/26/24 documented as of this encounter
--- OUTSIDE RECORDS SUMMARY | 2025-07-24 20:34 | XMS_ITS | Encounter Summary ---
Author Organization [facility] Address [address] [place] [address] Care Team Providers Care Attraction Worker Name Role Phone Cathleen Allan MD Unavailable [phone] Pete Hester MD Unavailable [phone] Pati Armendariz PhD Unavailabl e Madhav Mcfadden MD Primary Care Provider [phone] Yasmine Cohen RN Unavailable Unavaila ble Bre Almaguer RN Unavailable [phone] Madhav Mcfadden MD Unavailable Romero Pryor MD Unavailable [phone] Prerna Paulino MD Unavailable [phone] Magda Davis MD Unavailable [phone] Ifeoma Hanson MD Unavailable [phone] Ifeoma Hanson MD Unavailable + [phone] Encounter Details Date Type Department Care Team ([facility] Contact Info) Description 11/10/2022 Scanned Document [facility] HOME HEALTH SCAN Home Health Services, [...] place to sleep or slept in a correction (including now)? No 11/06/2022 Sex and Gender [...] Description 2025 8:00 AM EST Office Visit [address] [phone] Madhva Mcfadden MD [address] [place] [address] 09/01/2025 9:20 AM EST Office Visit [id number] [address] [phone] Reji Mi, DO [address] [place] [address] 09/29/2025 9:20 AM EST Office Visit [id number] [address] [phone] Reji Miil, DO [address] [place] [address] 10/27/2025 9:40 AM EDT Office Visit [id number] [address] [phone] Reji Mi, DO [address] [place] [address] 12/01/2025 9:40 AM EDT Office Visit [id number] [address] [phone] Reji Miil, DO [address] [place] [address] 02/03/2026 9:30 AM EDT Telemedicine [facility] Endocrinology [place] [address] [facility] [address] Ifeoma Hanson MD [address] [place] [address] documented as of this encounter Goals Goal [...] Benito, OT Note: Patient will increase L charging operator strength (4lbs) to 60 lbs or more in order to open pill bottles with greater ease x12 weeks Patient will increase L lateral pinch (3.5), L tip pinch (2.5), L 3 jaw pinch (2.5) by 5 lbs each in order for greater ease with typing x12 weeks. 06/18/2019 L charging operator- 20 lbs L lateral pinch- 6.2 [...] on filedocumented in this encounter Care Teams Attraction Worker Relationship Specialty Start Date End Date Madhav Mcfadden MD [address] [place] [address] PCP - General Family Medicine 01/16/22 Madhav Mcfadden MD [address] [place] [address] PCP - [employer] Commercial Attributed 07/06/22 07/05/23 Cathleen Allan MD Urology 09/15/16 Pete Hester MD [address] [place] [address] Surgery, Orthopedic 08/15/19 Pati Armendariz, PhD [address] [place] [address] Clinical Psychologist Psychology 09/16/21 Yasmine Cohen, RN [address] [place] [address] [facility] Community Case Coordinator 07/21/22 08/26/23 Bre Almaguer, RN [address] [address] [facility] Community Case Coordinator 10/03/22 11/13/22 Romero Pryor MD [address] [place] [address] Cardiovascular Disease 02/05/23 Prerna Paulino MD [address] [place] [address] Internal Medicine 07/04/24 Magda Davis MD [address] [place] [address] Gastroenterology 07/04/24 Ifeoma Hanson MD [address] [place] [address] Endocrinology 07/04/24 Ifeoma Hanson MD [address] [place] [address] Endocrinology 11/26/24 documented as of this encounter
--- OUTSIDE RECORDS SUMMARY | 2025-07-24 20:34 | XMS_ITS | Encounter Summary ---
Author Organization [facility] Address [address] [place] [address] Care Team Providers Care Panelbeater Name Role Phone Cathleen Allan MD Unavailable [phone] Pete Hester MD Unavailable [phone] Pati Armendariz PhD Unavailabl e Madhav Mcfadden MD Primary Care Provider [phone] Romero Pryor MD Unavailable [phone] Prerna Paulino MD Unavailable [phone] Magda Davis MD Unavailable [phone] Ifeoma Hanson MD Unavailable [phone] Ifeoma Hanson MD Unavailable + [phone] Encounter Details Date Type Department Care Team (Late st Contact Info) Description 12/13/2023 Scanned Document [facility] CARDIOLOGY SCAN Cardiology, Scan Social History Tobacco [...] place to sleep or slept in a prison (including now)? No 04/02/2023 Sex and Gender [...] Description 2025 8:00 AM EST Office Visit [address] [phone] Madhav Mcfadden MD [address] [place] [address] [phone] 09/01/2025 9:20 AM EST Office Visit [id number] [address] [place] [address] Shmuel, Reji Joni, DO [address] [place] [address] 09/29/2025 9:20 AM EST Office Visit [id number] [address] [phone] Shmuel, Reji Joni, DO [address] [place] [address] 10/27/2025 9:40 AM EDT Office Visit [id number] [address] [place] [address] Shmuel, Reji Joni, DO [address] [place] [address] 12/01/2025 9:40 AM EDT Office Visit [id number] [address] [phone] Shmuel, Reji Joni, DO [address] [place] [address] 02/03/2026 9:30 AM EDT Telemedicine [facility] Endocrinology [place] [address] [place] [phone] Ifeoma Hanson MD [facility] [place], [place] 712574 documented as of this encounter Goals Goal [...] was provided today with a [facility] HEP., ongoing OT LTG 2 Occupational Therapy No aMida Benito, DON Note: Patient will decrease Quick Dash score from 79.5 to 10 or less in order to complete functional tasks with greater ease x 12 weeks 06/18/2019 Scored the same today, ongoing OT LTG 3 Occupational Therapy No Maida Benito, DON Note: Patient will increase L photographer motion picture strength (4lbs) to 60 lbs or more in order to open pill bottles with greater ease x12 weeks Patient will increase L lateral pinch (3.5), L tip pinch (2.5), L 3 jaw pinch (2.5) by 5 lbs each in order for greater ease with typing x12 weeks. 06/18/2019 L photographer motion picture- 20 lbs L lateral pinch- 6.2 Tip [...] on filedocumented in this encounter Care Teams Panelbeater Relationship Specialty Start Date End Date Madhav Mcfadden MD [address] [place] [phone] PCP - General Family Medicine 01/16/22 Cathleen Allan MD Urology 09/15/16 Pete Hester MD [address] [place] [address] Surgery, Orthopedic 08/15/19 Pati Armendariz, PhD [address] [place] [address] Clinical Psychologist Psychology 09/16/21 Romero Pryor MD [address] [place] [address] Cardiovascular Disease 02/05/23 Prerna Paulino MD [address] [place] [address] Internal Medicine 07/04/24 Magda Davis MD [address] [place] [address] Gastroenterology 07/04/24 Ifeoma Hanson MD [address] [place] [address] Endocrinology 07/04/24 Ifeoma Hanson MD [address] [place] [address] Endocrinology 11/26/24 documented as of this encounter
--- OUTSIDE RECORDS SUMMARY | 2025-07-24 20:34 | XMS_ITS | Encounter Summary ---
Author Organization [facility] Address [address] [place] [address] Care Team Providers Care Route Relief Driver Name Role Phone Cathleen Allan MD Unavailable [phone] Pete Hester MD Unavailable [phone] Pati Armendariz PhD Unavailabl e Madhav Mcfadden MD Primary Care Provider [phone] Yasmine Cohen RN Unavailable Unavaila ble Romero Pryor MD Unavailable [phone] Prerna Paulino MD Unavailable [phone] Magda Davis MD Unavailable [phone] Ifeoma Hanson MD Unavailable + [phone] Ifeoma Hanson MD Unavailable +[phone] Encounter Details Date Type Department Care Team (Late st Contact Info) Description 07/11/2023 Scanned Document [facility] PHARMACY SCAN Pharmacy, Scan Social History [...] place to sleep or slept in a fci (including now)? No 04/02/2023 Sex and Gender [...] 2025 8:00 AM EST Office Visit [address] [phone] Madhav Mcfadden MD [address] [place] [address] 09/01/2025 9:20 AM EST Office Visit [id number] [address] [phone] ShmuelReji burnett, DO [address] [place] [address] 09/29/2025 9:20 AM EST Office Visit [id number] [address] [phone] Reji Mi, DO [address] [place] [address] 10/27/2025 9:40 AM EDT Office Visit [id number] [address] [phone] ShmuelReji Joni, DO [address] [place] [address] 12/01/2025 9:40 AM EDT Office Visit [id number] [address] [place] [address] [phone] Reji Mi, DO [address] [place] [address] 02/03/2026 9:30 AM EDT Telemedicine [facility] Endocrinology [address] [phone] Ifeoma Hanson MD [address] [place] [address] documented as of this encounter Goals Goal [...] was provided today with a [facility] ongoing OT LTG 2 Occupational Therapy No Maida Benito, OT Note: Patient will decrease Quick Dash score from 79.5 to 10 or less in order to complete functional tasks with greater ease x 12 weeks 06/18/2019 Scored the same today, ongoing OT LTG 3 Occupational Therapy No Maida Benito OT Note: Patient will increase L heddler tier strength (4lbs) to 60 lbs or more in order to open pill bottles with greater ease x12 weeks Patient will increase L lateral pinch (3.5), L tip pinch (2.5), L 3 jaw pinch (2.5) by 5 lbs each in order for greater ease with typing x12 weeks. 06/18/2019 L heddler tier- 20 lbs L lateral pinch- 6.2 Tip [...] on filedocumented in this encounter Care Teams Route Relief Driver Relationship Specialty Start Date End Date Madhav Mcfadden MD [address] [place] [phone] PCP - General Family Medicine 01/16/22 Cathleen Allan MD Urology 09/15/16 Pete Hester MD [address] [place] [address] Surgery, Orthopedic 08/15/19 Pati Armendariz, PhD [address] [place] [address] Clinical Psychologist Psychology 09/16/21 Yasmine Cohen, RN [address] [place] [address] [facility] Community Rv Detailer 07/21/22 08/26/23 Romero Pryor MD [address] [place] [address] Cardiovascular Disease 02/05/23 Prerna Paulino MD [address] [place] [address] Internal Medicine 07/04/24 Magda Davis MD [address] [place] [address] Gastroenterology 07/04/24 Ifeoma Hanson MD [address] [place] [address] Endocrinology 07/04/24 Ifeoma Hanson MD [address] [place] [address] Endocrinology 11/26/24 documented as of this encounter
--- OUTSIDE RECORDS SUMMARY | 2025-07-24 20:34 | XMS_ITS | Encounter Summary ---
Author Organization Formerly [facility] Address [address] [place] [address] Care Team Providers Care Filler Mixer Name Role Phone Jacqueline Kay MD Primary Care Provider Unava ilable Jacqueline Kay MD Primary Care Provider Unava ilable Jacqueline Kay MD Unavailable Unavailable Jacqueline Kay MD Unavailable Unavailable Stephanie Darnell I DIESEL ENGINE ENGINEER Unavailable [phone] Stephanie Darnell I DIESEL ENGINE ENGINEER Unavailable [phone] Cathleen Allan MD Unavailable [phone] Pete Hester MD Unavailable [phone] Pati Armendariz PhD Unavailabl e Madhav Mcfadden MD Primary Care Provider [phone] Jacqueline Kay MD Unavailable Unavailable Yasmine Cohen RN Unavailable Unavaila ble Bre Almaguer RN Unavailable [phone] Madhav Mcfadden MD Unavailable [phone] Romero Pryor MD Unavailable [phone] Prerna Paulino MD Unavailable [phone] Magda Davis MD Unavailable [phone] Ifeoma Hanson MD Unavailable Ifeoma Hanson MD Unavailable Encounter Details Date Type Department Care Team (Late st Contact Info) Description 10/03/2019 Scanned Document [facility] [address] [place] [address] [place] [address] Jacqueline Kay MD Social History Tobacco Use [...] AM EST Office Visit [address] [address] Madhav Mcfadden MD [address] [place] [address] 09/01/2025 9:20 AM EST Office Visit [id number] [address] [address] Reji Mi, DO [address] [place] [address] [id number] 09/29/2025 9:20 AM EST Office Visit [id number] [address] [address] Reji Mi, DO [address] [place] [address] [id number] 10/27/2025 9:40 AM EDT Office Visit [id number] [address] [place] [phone] Reji Mi, DO [address], [place] [id number] 12/01/2025 9:40 AM EDT Office Visit [facility] [id number] [address] [place] [phone] Reji Miil, DO [address], [place] [phone] 02/03/2026 9:30 AM EDT Telemedicine [facility] Endocrinology [place] [address] [place] [address], [place] [address] Ifeoma Hanson MD [address] [place] [address], [place] [address] documented as of this encounter Goals Goal [...] and he was provided today with a [facility] HEP., ongoing OT LTG 2 Occupational Therapy No Maida Benito, DON Note: Patient will decrease Quick Dash score from 79.5 to 10 or less in order to complete functional tasks with greater ease x 12 weeks 06/18/2019 Scored the same today, ongoing OT LTG 3 Occupational Therapy No Maida Benito, DON Note: Patient will increase L bike mechanic strength (4lbs) to 60 lbs or more in order to open pill bottles with greater ease x12 weeks Patient will increase L lateral pinch (3.5), L tip pinch (2.5), L 3 jaw pinch (2.5) by 5 lbs each in order for greater ease with typing x12 weeks. 06/18/2019 L bike mechanic- 20 lbs L lateral pinch- 6.2 Tip [...] documented as of this encounter Care Teams Filler Mixer Relationship Specialty Start Date End Date Jacqueline Kay MD PCP - General Family Medicine 11/01/17 04/28/21 Jacqueline Kay MD PCP - General Family Medicine 04/29/21 01/15/22 Jacqueline Kay MD PCP - [employer] Attributed 06/06/20 07/05/20 Stephanie Darnell I, DIESEL ENGINE ENGINEER [address] [address] PCP - [employer] Commercial Attributed 07/06/20 10/03/20 Stephanie Darnell I, DIESEL ENGINE ENGINEER [address] [place] [address] PCP - [employer] Commercial Attributed 05/06/21 11/03/21 Madhav Mcfadden MD [address] [place] [address] PCP - General Family Medicine 01/16/22 Jacqueline Kay MD PCP - [employer] Commercial Attributed 11/04/21 07/05/22 Madhav Mcfadden MD [address] [place] [address] PCP - [employer] Commercial Attributed 07/06/22 07/05/23 Jacqueline Kay MD Family Medicine 04/29/21 03/30/22 Cathleen Allan MD [address] [place] [address] Urology 09/15/16 Pete Hester MD [address] [address] Surgery, Orthopedic 08/15/19 Pati Armendariz, PhD [address] [place] [address] Clinical Psychologist Psychology 09/16/21 Yasmine Cohen, RN [address] [place] [address] [facility] Community Rivet Bucker 07/21/22 08/26/23 Bre Almaguer, RN [address] [address] [facility] Community Rivet Bucker 10/03/22 11/13/22 Romero Pryor MD [address] [place] [address] Cardiovascular Disease 02/05/23 Prerna Paulino MD [address] [place] [address] Internal Medicine 07/04/24 Magda Davis MD [address] [place] [address] Gastroenterology 07/04/24 Ifeoma Hanson MD [address] [place] [address] Endocrinology 07/04/24 Ifeoma Hanson MD [address] [place] [address] Endocrinology 11/26/24 documented as of this encounter
--- OUTSIDE RECORDS SUMMARY | 2025-07-24 20:34 | XMS_ITS | Encounter Summary ---
Author Organization [facility] Address [address] [place] [address] Care Team Providers Care Real Estate Operations Manager Name Role Phone Jacqueline Kay MD Primary Care Provider Unava ilable Jacqueline Kay MD Primary Care Provider Unava ilable Jacqueline Kay MD Unavailable Unavailable Jacqueline Kay MD Unavailable Unavailable Stephanie Darnell I ASSEMBLY STOCK SUPERVISOR Unavailable [phone] Stephanie Darnell I ASSEMBLY STOCK SUPERVISOR Unavailable [phone] Cathleen Allan MD Unavailable [phone] Pete Hester MD Unavailable [phone] Pati Armendariz PhD Unavailabl e Madhav Mcfadden MD Primary Care Provider [phone] Jacqueline Kay MD Unavailable Unavailable Yasmine Cohen RN Unavailable Unavaila ble Bre Almaguer RN Unavailable [phone] Madhav Mcfadden MD Unavailable [phone] oRmero Pryor MD Unavailable [phone] Prerna Paulino MD Unavailable [phone] Magda Davis MD Unavailable [phone] Ifeoma Hanson MD Unavailable Ifeoma Hanson MD Unavailable Encounter Details Date Type Department Care Team (Late st Contact Info) Description 09/18/2019 Scanned Document [facility] [address] [facility] [address] [place] [address] Bal Dill MD [address] [address] [place], [place] [id number] Social History Tobacco Use Types Packs/Day Years [...] Description 2025 8:00 AM EST Office Visit [address] [phone] Madhav Mcfadden MD [address] [place] [address] 09/01/2025 9:20 AM EST Office Visit [id number] [address] [phone] Reji Mi, DO [address] [phone] 09/29/2025 9:20 AM EST Office Visit [id number] [address] [phone] Reji Miil, DO [address] [phone] 10/27/2025 9:40 AM EDT Office Visit [id number] [address] [place] [phone] Reji Mi, DO [address], [place] [phone] 12/01/2025 9:40 AM EDT Office Visit [id number] [address] [place] [phone] ShmuelReji Joni, DO [address], [place] [phone] 02/03/2026 9:30 AM EDT Telemedicine [facility] Endocrinology [address] [address] Ifeoma Hanson MD [address] [place] [address] documented as of this encounter Goals Goal [...] Benito, OT Note: Patient will increase L digital circuit designer strength (4lbs) to 60 lbs or more in order to open pill bottles with greater ease x12 weeks Patient will increase L lateral pinch (3.5), L tip pinch (2.5), L 3 jaw pinch (2.5) by 5 lbs each in order for greater ease with typing x12 weeks. 06/18/2019 L digital circuit designer- 20 lbs L lateral pinch- 6.2 Tip [...] documented as of this encounter Care Teams Real Estate Operations Manager Relationship Specialty Start Date End Date Jacqueline Kay MD PCP - General Family Medicine 11/01/17 04/28/21 Jacqueline Kay MD PCP - General Family Medicine 04/29/21 01/15/22 Jacqueline Kay MD PCP - [employer] Commercial Attributed 06/06/20 07/05/20 Stephanie Darnell I, ASSEMBLY STOCK SUPERVISOR [address] [place] [address] PCP - [employer] Commercial Attributed 07/06/20 10/03/20 Stephanie Darnell I, ASSEMBLY STOCK SUPERVISOR [address] [address] PCP - [employer] Commercial Attributed 05/06/21 11/03/21 Madhav Mcfadden MD [address] [place] [address] PCP - General Family Medicine 01/16/22 Jacqueline Kay MD PCP - [employer] Commercial Attributed 11/04/21 07/05/22 Madhav Mcfadden MD [address] [place] [address] PCP - [employer] Commercial Attributed 07/06/22 07/05/23 Jacqueline Kay MD Family Medicine 04/29/21 03/30/22 Cathleen Allan MD [address] [address] Urology 09/15/16 Pete Hester MD [address] [place] [address] Surgery, Orthopedic 08/15/19 Pati Armendariz, PhD [address] [place] [address] Clinical Psychologist Psychology 09/16/21 Yasmine Cohen, RN [address] [place] [address] [facility] Community Sulfonation Equipment Operator 07/21/22 08/26/23 Bre Almaguer, RN [address] [address] [facility] Community Sulfonation Equipment Operator 10/03/22 11/13/22 Romero Pryor MD [address] [place] [address] Cardiovascular Disease 02/05/23 Prerna Paulino MD [address] [place] [address] Internal Medicine 07/04/24 Magda Davis MD [address] [place] [address] Gastroenterology 07/04/24 Ifeoma Hanson MD [address] [place] [address] Endocrinology 07/04/24 Ifeoma Hanosn MD [address] [place] [address] Endocrinology 11/26/24 documented as of this encounter
--- OUTSIDE RECORDS SUMMARY | 2025-07-24 20:34 | XMS_ITS | Encounter Summary ---
Author Organization [facility] Address [address] [place] [address] Care Team Providers Care All Source Analyst Name Role Phone Cathleen Allan MD Unavailable [phone] Pete Hester MD Unavailable [phone] Pati Armendariz PhD Unavailabl e Madhav Mcfadden MD Primary Care Provider [phone] Yasmine Cohen RN Unavailable Unavaila ble Madhav Mcfadden MD Unavailable [phone] Romero Pryor MD Unavailable [phone] Prerna Paulino MD Unavailable [phone] Magda Davis MD Unavailable [phone] Ifeoma Hanson MD Unavailable [phone] Ifeoma Hanson MD Unavailable [phone] Encounter Details Date Type Department Care Team (Late st Contact Info) Description 11/22/2022 Scanned Document [facility]IMARY [facility] SCAN Primary Care, Scan [...] place to sleep or slept in a half-way (including now)? No 11/06/2022 Sex and Gender [...] Description 2025 8:00 AM EST Office Visit [address] [phone] Madhav Mcfadden MD [address] [place] [address] [phone] 09/01/2025 9:20 AM EST Office Visit [id number] [address] [phone] ShmuelReji burnett, DO [address] [place] [address] 09/29/2025 9:20 AM EST Office Visit [id number] [address] [address] ShmuelReji silver Joni, DO [address] [place] [address] 10/27/2025 9:40 AM EDT Office Visit [id number] [address] [phone] Reji Mi, DO [address] [place] [address] 12/01/2025 9:40 AM EDT Office Visit [id number] [address] [phone] Reji Miil, DO [address] [place] [address] 02/03/2026 9:30 AM EDT Telemedicine [facility] Endocrinology [address] [phone] Ifeoma Hanson MD [facility] [place] [address] documented as of this encounter Goals Goal [...] provided today with a [facility]P., ongoing OT LTG 2 Occupational Therapy No Maida Benito OT Note: Patient will decrease Quick Dash score from 79.5 to 10 or less in order to complete functional tasks with greater ease x 12 weeks 06/18/2019 Scored the same today, ongoing OT LTG 3 Occupational Therapy No Maida Benito, OT Note: Patient will increase L insurance account specialist strength (4lbs) to 60 lbs or more in order to open pill bottles with greater ease x12 weeks Patient will increase L lateral pinch (3.5), L tip pinch (2.5), L 3 jaw pinch (2.5) by 5 lbs each in order for greater ease with typing x12 weeks. 06/18/2019 L insurance account specialist- 20 lbs L lateral pinch- [...] weeks. OT LTG 6 Occupational Therapy No Benito Maida, OT Note: Patient will increase L shoulder abductors and IR's, elbow extensors, and wrist flexors/extensors (3+/5) to 5/5 in order to greater ease picking up young son x12 weeks Abductors- 3+ IR's- 5/5 Elbow extensors- 4/5 Wrist flexors-5/5 Wrist extensors- 4/5 Ongoing documented as of this encounter Visit Diagnoses Not on filedocumented in this encounter Care Teams All Source Analyst Relationship Specialty Start Date End Date Madhav Mcfadden MD [address] [place] [address] PCP - General Family Medicine 01/16/22 Madhav Mcfadden MD [address] [place] [address] PCP - [employer] Commercial Attributed 07/06/22 07/05/23 Cathleen Allan MD Urology 09/15/16 Pete Hester MD [address] [place] [address] Surgery, Orthopedic 08/15/19 Pati Armendariz, PhD [address] [place] [address] Clinical Psychologist Psychology 09/16/21 Yasmine Cohen, RAEANN [address] [place] [address] [facility] Community Ship Construction Teacher 07/21/22 08/26/23 Romero Pryor MD [address] [place] [address] Cardiovascular Disease 02/05/23 Prerna Paulino MD [address] [place] [address] Internal Medicine 07/04/24 Magda Davis MD [address] [place] [address] Gastroenterology 07/04/24 Ifeoma Hanson MD [address] [place] [address] Endocrinology 07/04/24 Ifeoma Hanson MD [address] [place] [address] Endocrinology 11/26/24 documented as of this encounter
--- OUTSIDE RECORDS SUMMARY | 2025-07-24 20:34 | XMS_ITS | Encounter Summary ---
Author Organization Formerly [facility] Address [address] [place] [address] Care Team Providers Care Repulping Supervisor Name Role Phone Cathleen Allan MD Unavailable [phone] Pete Hester MD Unavailable [phone] Pati Armendariz PhD Unavailabl e Madhav Mcfadden MD Primary Care Provider [phone] Yasmine Cohen RN Unavailable Unavaila ble Madhav Mcfadden MD Unavailable [phone] Romero Pryor MD Unavailable [phone] Prerna Paulino MD Unavailable [phone] Magda Davis MD Unavailable [phone] Ifeoma Hanson MD Unavailable [phone] Ifeoma Hanson MD Unavailable [phone] Encounter Details Date Type Department Care Team (Late st Contact Info) Description 12/04/2022 Scanned Document [facility] [address] [place] [address] Provider, MD Adama [address] [place] [address] Social History Tobacco Use Types Packs/Day Years [...] slept in a jail (including now)? No 11/06/2022 Sex and Gender [...] 2025 8:00 AM EST Office Visit [address] [phone] Madhav Mcfadden MD [address] [place] [address] [phone] 09/01/2025 9:20 AM EST Office Visit [facility] PA[id number] [address] [phone] ShmuelReji burnettil, DO [address] [place] [address] 09/29/2025 9:20 AM EST Office Visit [facility] PA[id number] [address] [phone] ShmuelReji silver Joni, DO [address] [place] [address] 10/27/2025 9:40 AM EDT Office Visit [facility] PAIN MGMT [id number] [address] [phone] Reji Miil, DO [address] [place] [address] 12/01/2025 9:40 AM EDT Office Visit MG PAIN MGMT [id number] [address] [phone] ShmuelReji burnett Joni, DO [address] [place] [address] 02/03/2026 9:30 AM EDT Telemedicine [facility] Endocrinology [address] [phone] Ifeoma Hanson MD [address] [place] [address] documented as of this encounter Goals Goal [...] Benito, OT Note: Patient will increase L business support professional strength (4lbs) to 60 lbs or more in order to open pill bottles with greater ease x12 weeks Patient will increase L lateral pinch (3.5), L tip pinch (2.5), L 3 jaw pinch (2.5) by 5 lbs each in order for greater ease with typing x12 weeks. 06/18/2019 L business support professional- 20 lbs L lateral pinch- 6.2 Tip [...] on filedocumented in this encounter Care Teams Repulping Supervisor Relationship Specialty Start Date End Date Madhav Mcfadden MD [address] [place] [address] PCP - General Family Medicine 01/16/22 Madhav Mcfadden MD [address] [place] [address] PCP - [employer] Commercial Attributed 07/06/22 07/05/23 Cathleen Allan MD Urology 09/15/16 Pete Hester MD [address] [place] [address] Surgery, Orthopedic 08/15/19 Pati Armendariz, PhD [address] [place] [address] Clinical Psychologist Psychology 09/16/21 Yasmine Cohen RN [address] [place] [address] [facility] Community City Routeman 07/21/22 08/26/23 Romero Pryor MD [address] [place] [address] Cardiovascular Disease 02/05/23 Prerna Paulino MD [address] [place] [address] Internal Medicine 07/04/24 Magda Davis MD [address] [place] [address] Gastroenterology 07/04/24 Ifeoma Hanson MD [address] [place] [address] Endocrinology 07/04/24 Ifeoma Hanson MD [address] [place] [address] Endocrinology 11/26/24 documented as of this encounter
--- OUTSIDE RECORDS SUMMARY | 2025-07-24 20:34 | XMS_ITS | Encounter Summary ---
Author Organization [facility] Address [address] [place] [address] Care Team Providers Care Manager Education Name Role Phone Cathleen Allan MD Unavailable [phone] Pete Hester MD Unavailable [phone] Pati Armendariz PhD Unavailabl e Madhav Mcfadden MD Primary Care Provider [phone] Romero Pryor MD Unavailable [phone] Prerna Paulino MD Unavailable [phone] Magda Davis MD Unavailable [phone] Ifeoma Hanson MD Unavailable [phone] Ifeoma Hanson MD Unavailable [phone] Encounter Details Date Type Department Care Team (Late st Contact Info) Description 10/23/2023 Scanned Document [facility] Endocrinology [place] [address] [place] [phone] Ifeoma Hanson MD [address] [place], [place] [phone] Social History Tobacco Use Types Packs/Day Years [...] 2025 8:00 AM EST Office Visit [address] [phone] Madhav Mcfadden MD [address] [place] [address] 09/01/2025 9:20 AM EST Office Visit MG PAIN MGMT [id number] [address] [phone] Reji Miil, DO [address] [place] [address] 09/29/2025 9:20 AM EST Office Visit MG PAIN MGMT [id number] [address] [phone] ShmuelReji silveril, DO [address] [place] [address] 10/27/2025 9:40 AM EDT Office Visit [facility] PAIN MGMT [id number] [address] [phone] Reji Mi Joni, DO [address] [place] [address] 12/01/2025 9:40 AM EDT Office Visit MG PAIN MGMT [id number] [address] [phone] ShmuelReji burnett Joni, DO [address] [place] [address] 02/03/2026 9:30 AM EDT Telemedicine [facility] Endocrinology [address] [phone] Ifeoma Hanson MD [address] [place] [address] documented as of this encounter Goals Goal [...] and he was provided today with a [facility] HEP., ongoing OT LTG 2 Occupational Therapy No Maida Benito, DON Note: Patient will decrease Quick Dash score from 79.5 to 10 or less in order to complete functional tasks with greater ease x 12 weeks 06/18/2019 Scored the same today, ongoing OT LTG 3 Occupational Therapy No Maida Benito, OT Note: Patient will increase L sleep scientist strength (4lbs) to 60 lbs or more in order to open pill bottles with greater ease x12 weeks Patient will increase L lateral pinch (3.5), L tip pinch (2.5), L 3 jaw pinch (2.5) by 5 lbs each in order for greater ease with typing x12 weeks. 06/18/2019 L sleep scientist- 20 lbs L lateral pinch- 6.2 Tip [...] filedocumented in this encounter Care Teams Manager Education Relationship Specialty Start Date End Date Madhav Mcfadden MD [address] [place] [address] PCP - General Family Medicine 01/16/22 Cathleen Allan MD Urology 09/15/16 Pete Hester MD [address] [place] [address] Surgery, Orthopedic 08/15/19 Pati Armendariz, PhD [address] [place] [address] Clinical Psychologist Psychology 09/16/21 Romero Pryor MD [address] [place] [address] Cardiovascular Disease 02/05/23 Prerna Paulino MD [address] [place] [address] Internal Medicine 07/04/24 Magda Davis MD [address] [place] [address] Gastroenterology 07/04/24 Ifeoma Hanson MD [address] [place] [address] Endocrinology 07/04/24 Ifeoma Hanson MD [address] [place] [address] Endocrinology 11/26/24 documented as of this encounter
--- OUTSIDE RECORDS SUMMARY | 2025-07-24 20:34 | XMS_ITS | Encounter Summary ---
Author Organization [facility] Address [address] [place] [address] Care Team Providers Care Boom Storage Name Role Phone Jacqueline Kay MD Primary Care Provider Unava ilable Jacqueline Kay MD Primary Care Provider Unava ilable Jacqueline Kay MD Unavailable Unavailable Jacqueline Kay MD Unavailable Unavailable Stephanie Darnell I FALSEWORK BUILDER Unavailable [phone] Stephanie Darnell I FALSEWORK BUILDER Unavailable +[phone] Cathleen Allan MD Unavailable [phone] Pete Hester MD Unavailable +[phone] Pati Armendariz PhD Unavailabl e Madhav Mcfadden MD Primary Care Provider [phone] Jacqueline Kay MD Unavailable Unavailable Yasmine Cohen RN Unavailable Unavaila ble Bre Almaguer RN Unavailable +[phone] Madhav Mcfadden MD Unavailable [phone] Romero Pryor MD Unavailable [phone] Prerna Paulino MD Unavailable +[phone] Magda Davis MD Unavailable [phone] Ifeoma Hanson MD Unavailable Ifeoma Hanson MD Unavailable Encounter Details Date Type Department Care Team (Late st Contact Info) Description 09/11/2019 Scanned Document [facility] Keron [address] [place] [address] [place] [address] Provider, Generic Social History Tobacco Use Types [...] Description 2025 8:00 AM EST Office Visit [address] [address] Madhav Mcfadden MD [address] [place] [address] 09/01/2025 9:20 AM EST Office Visit [facility] [id number] [address] [address] Reji Mi, DO [address] [place] [address] [phone] 09/29/2025 9:20 AM EST Office Visit [id number] [address] [address] Reji Mi, DO [address] [place] [address] [phone] 10/27/2025 9:40 AM EDT Office Visit [id number] [address] [place] [address] Reji Mi, DO [address] [phone] 12/01/2025 9:40 AM EDT Office Visit [id number] [address] [place] [address] ShmuelReji Joni, DO [address], [place] [phone] 02/03/2026 9:30 AM EDT Telemedicine [facility] Endocrinology [address] [phone] Ifeoma Hanson MD [address] [place] [address] [phone] documented as of this encounter Goals Goal [...] was provided today with a [facility] ongoing OT LTG 2 Occupational Therapy No Maida Benito, DON Note: Patient will decrease Quick Dash score from 79.5 to 10 or less in order to complete functional tasks with greater ease x 12 weeks 06/18/2019 Scored the same today, ongoing OT LTG 3 Occupational Therapy No Maida Benito, DON Note: Patient will increase L database developer strength (4lbs) to 60 lbs or more in order to open pill bottles with greater ease x12 weeks Patient will increase L lateral pinch (3.5), L tip pinch (2.5), L 3 jaw pinch (2.5) by 5 lbs each in order for greater ease with typing x12 weeks. 06/18/2019 L database developer- 20 lbs L lateral pinch- 6.2 Tip [...] documented as of this encounter Care Teams Boom Storage Relationship Specialty Start Date End Date Jacqueline Kay MD PCP - General Family Medicine 11/01/17 04/28/21 Jacqueline Kay MD PCP - General Family Medicine 04/29/21 01/15/22 Jacqueline Kay MD PCP - [employer] Attributed 06/06/20 07/05/20 Stephanie Darnell APRN [address] [address] PCP - [employer] Attributed 07/06/20 10/03/20 Stephanie Darnell APRN [address] [place] [address] PCP - [employer] Attributed 05/06/21 11/03/21 Mdahav Mcfadden MD [address] [place] [address] PCP - General Family Medicine 01/16/22 Jacqueline Kay MD PCP - [employer] Attributed 11/04/21 07/05/22 Madhav Mcfadden MD [address] [place] [address] PCP - [employer] Attributed 07/06/22 07/05/23 Jacqueline Kay MD Family Medicine 04/29/21 03/30/22 Cathleen Allan MD [address] [address] Urology 09/15/16 Pete Hester MD [address] [place] [address] Surgery, Orthopedic 08/15/19 Pati Armendariz, PhD [address] [place] [address] [address] [place] [address] Clinical Psychologist Psychology 09/16/21 Yasmine Cohen, RN [address] [place] [address] [facility] Community Emergency Medical Technician 07/21/22 08/26/23 Bre Almaguer, RN 1290 [facility] 4 [place] [address] [facility] Community Emergency Medical Technician 10/03/22 11/13/22 Romero Pryor MD [address] [place] [address] [address] [place] [address] Cardiovascular Disease 02/05/23 Prerna Paulino MD [address] [place] [address] [address] [place] [address] Internal Medicine 07/04/24 Magda Davis MD [address] [place] [address] [address] [place] [address] Gastroenterology 07/04/24 Ifeoma Hanson MD [address] [place] [address] Endocrinology 07/04/24 Ifeoma Hanson MD [address] [place] [address] Endocrinology 11/26/24 documented as of this encounter
--- OUTSIDE RECORDS SUMMARY | 2025-07-24 20:34 | XMS_ITS | Encounter Summary ---
Author Organization [facility] Address [address] [place] [address] Care Team Providers Care Microwave Supervisor Name Role Phone Cathleen Allan MD Unavailable [phone] Pete Hester MD Unavailable [phone] Pati Armendariz PhD Unavailabl e Madhav Mcfadden MD Primary Care Provider [phone] Romero Pryor MD Unavailable [phone] Prerna Paulino MD Unavailable +[phone] Magda Davis MD Unavailable [phone] Ifeoma Hanson MD Unavailable +[phone] Ifeoma Hanson MD Unavailable + [phone] Encounter Details Date Type Department Care Team (Late st Contact Info) Description 12/20/2023 Scanned Document [facility]AN Gastroenterology, Scan Social History Tobacco Use Types [...] Description 2025 8:00 AM EST Office Visit [address] [phone] Madhav Mcfadden MD [address] [place] [address] [place] [phone] 09/01/2025 9:20 AM EST Office Visit [id number] [address] [place] [address] Shmuel, Reji Joni, DO [address] [place] [address] 09/29/2025 9:20 AM EST Office Visit [id number] [address] [phone] Shmuel, Reji Joni, DO [address] [place] [address] 10/27/2025 9:40 AM EDT Office Visit [id number] [address] [place] [phone] Shmuel, Reji Joni, DO [address] [place] [address] 12/01/2025 9:40 AM EDT Office Visit [facility] PA[id number] [address] [phone] Shmuel, Reji Joni, DO [address] [place] [address] 02/03/2026 9:[address] [facility] Endocrinology [address] [place] [phone] Ifeoma Hanson MD [address] [place], [place] [phone] documented as of this encounter Goals Goal [...] provided today with a [facility] ongoing OT LTG 2 Occupational Therapy No Maida Benito OT Note: Patient will decrease Quick Dash score from 79.5 to 10 or less in order to complete functional tasks with greater ease x 12 weeks 06/18/2019 Scored the same today, ongoing OT LTG 3 Occupational Therapy No Maida Benito OT Note: Patient will increase L ice rink attendant strength (4lbs) to 60 lbs or more in order to open pill bottles with greater ease x12 weeks Patient will increase L lateral pinch (3.5), L tip pinch (2.5), L 3 jaw pinch (2.5) by 5 lbs each in order for greater ease with typing x12 weeks. 06/18/2019 L ice rink attendant- 20 lbs L lateral pinch- 6.2 Tip pinch- 7.1 3 jaw- 6.1 OT LTG 4 Occupational Therapy No Maida Benito, DON Note: Patient will decrease L 9 hole [...] on filedocumented in this encounter Care Teams Microwave Supervisor Relationship Specialty Start Date End Date Madhav Mcfadden MD [address] [place] [id number] PCP - General Family Medicine 01/16/22 Cathleen Allan MD Urology 09/15/16 Pete Hester MD [address] [place] [address] Surgery, Orthopedic 08/15/19 Pati Armendariz, PhD [address] [place] [address] Clinical Psychologist Psychology 09/16/21 Romero Pryor MD [address] [place] [address] Cardiovascular Disease 02/05/23 Prerna Paulino MD [address] [place] [address] Internal Medicine 07/04/24 Magda Davis MD [address] [place] [address] Gastroenterology 07/04/24 Ifeoma Hanson MD [address] [place] [address] Endocrinology 07/04/24 Ifeoma Hanson MD [address] [place] [address] Endocrinology 11/26/24 documented as of this encounter
--- OUTSIDE RECORDS SUMMARY | 2025-07-24 20:34 | XMS_ITS | Encounter Summary ---
Author Organization [facility] Address [address] [place] [address] Care Team Providers Care Soccer Player Name Role Phone Jacqueline Kay MD Primary Care Provider Unava ilable Jacqueline Kay MD Primary Care Provider Unava ilable Jacqueline Kay MD Unavailable Unavailable Jacqueline Kay MD Unavailable Unavailable Stephanie Darnell I OBSTETRICS AND GYNECOLOGY PROFESSOR Unavailable [phone] Stephanie Darnell I OBSTETRICS AND GYNECOLOGY PROFESSOR Unavailable +[phone] Cathleen Allan MD Unavailable [phone] Pete Hester MD Unavailable +[phone] Pati Armendariz PhD Unavailabl e Madhav Mcfadden MD Primary Care Provider [phone] Jacqueline Kay MD Unavailable Unavailable Yasmine Cohen RN Unavailable Unavaila ble Bre Almaguer RN Unavailable [phone] Madhav Mcfadden MD Unavailable [phone] Romero Pryor MD Unavailable [phone] Prerna Paulino MD Unavailable [phone] Magda Davis MD Unavailable [phone] Ifeoma Hanson MD Unavailable Ifeoma Hanson MD Unavailable [phone] Encounter Details Date Type Department Care Team (Late st Contact Info) Description 10/14/2019 Prep for Surgery [facility] [address] [facility] [address] [place] [phone] Bal Dill MD [address] [facility] [address] [place], [place] [id number] Complex regional pain syndrome type 1 of [...] 2025 8:00 AM EST Office Visit [address] [phone] Madhav Mcfadden MD [address] [place] [address] 09/01/2025 9:20 AM EST Office Visit [facility] PA[facility] [id number] [address] [address] Reji Mi DO [address] [place] [address] [phone] 09/29/2025 9:20 AM EST Office Visit [facility] PAIN MGMT [id number] [address] [phone] Reji Mi DO [address], [place] [phone] 10/27/2025 9:40 AM EDT Office Visit MG PAIN MGMT [id number] [address] [place] [phone] Reji Mi, DO [address], [place] [phone] 12/01/2025 9:40 AM EDT Office Visit MG PAIN MGMT [id number] [address] [place] [phone] Reji Mi, DO [address], [place] [phone] 02/03/2026 9:30 AM EDT Telemedicine [facility] Endocrinology [address] [address] Ifeoma Hanson MD [address] [place] [address] [phone] documented as of this encounter Goals Goal [...] Benito, OT Note: Patient will increase L pizza driver strength (4lbs) to 60 lbs or more in order to open pill bottles with greater ease x12 weeks Patient will increase L lateral pinch (3.5), L tip pinch (2.5), L 3 jaw pinch (2.5) by 5 lbs each in order for greater ease with typing x12 weeks. 06/18/2019 L pizza driver- 20 lbs L lateral pinch- 6.2 Tip [...] documented as of this encounter Care Teams Soccer Player Relationship Specialty Start Date End Date Jacqueline Kay MD PCP - General Family Medicine 11/01/17 04/28/21 Jacqueline Kay MD PCP - General Family Medicine 04/29/21 01/15/22 Jacqueline Kay MD PCP - [employer] Attributed 06/06/20 07/05/20 Stephanie Darnell I, OBSTETRICS AND GYNECOLOGY PROFESSOR [address] [address] PCP - [employer] Attributed 07/06/20 10/03/20 Stephanie Darnell APRN [address] [address] PCP - [employer] Attributed 05/06/21 11/03/21 Madhav Mcfadden MD [address] [place], [place] 660664 PCP - General Family Medicine 01/16/22 Jacqueline Kay MD PCP - [employer] Attributed 11/04/21 07/05/22 Madhav Mcfadden MD [address] [place], [place] 219554 PCP - [employer] Attributed 07/06/22 07/05/23 Jacqueline Kay MD Family Medicine 04/29/21 03/30/22 Cathleen Allan MD [address] [address] Urology 09/15/16 Pete Hester MD [address] [place] [address] Surgery, Orthopedic 08/15/19 Anthony Gallegos, Pati Medina, PhD [address] [place] [address] Clinical Psychologist Psychology 09/16/21 Yasmine Cohen, RN [facility] [address] Community Car Customizer 07/21/22 08/26/23 Bre Almaguer, RN [address] [address] [facility] Community Car Customizer 10/03/22 11/13/22 Romero Pryor MD [address] [place] [address] Cardiovascular Disease 02/05/23 Prerna Paulino MD [address] [place] [address] Internal Medicine 07/04/24 Magda Davis MD [address] [place] [address] Gastroenterology 07/04/24 Ifeoma Hanson MD [address] [place], [place] [phone] Endocrinology 07/04/24 Ifeoma Hanson MD [address] [place] [address] Endocrinology 11/26/24 documented as of this encounter
--- OUTSIDE RECORDS SUMMARY | 2025-07-24 20:34 | XMS_ITS | Encounter Summary ---
Author Organization [facility] Address [address] [place] [address] Care Team Providers Care Retirement Assistant Name Role Phone Cathleen Allan MD Unavailable [phone] Pete Hester MD Unavailable [phone] Pati Armendariz PhD Unavailabl e Madhav Mcfdaden MD Primary Care Provider [phone] Yasmine Cohen RN Unavailable Unavaila ble Bre Almaguer RN Unavailable [phone] Madhav Mcfadden MD Unavailable [phone] Romero Pryor MD Unavailable [phone] Prerna Paulino MD Unavailable [phone] Magda Davis MD Unavailable [phone] Ifeoma Hanson MD Unavailable +[phone] Ifeoma Hanson MD Unavailable + [phone] Encounter Details Date Type Department Care Team ([facility] Contact Info) Description 11/10/2022 Scanned Document [facility] SC[facility] Home Health Services, [...] 2025 8:00 AM EST Office Visit [address] [address] Madhav Mcfadden MD [address] [place] [address] 09/01/2025 9:20 AM EST Office Visit MG PAIN MGMT [id number] [address] [phone] Reji Mi, DO [address] [place] [address] 09/29/2025 9:20 AM EST Office Visit MG PAIN MGMT [id number] [address] [address] Reji Miil, DO [address] [place] [address] 10/27/2025 9:40 AM EDT Office Visit MG PAIN MGMT [id number] [address] [phone] Reji Mi, DO [address] [place] [address] 12/01/2025 9:40 AM EDT Office Visit MG PAIN MGMT [id number] [address] [address] Reji Miil, DO [address] [place] [address] 02/03/2026 9:30 AM EDT Telemedicine [facility] Endocrinology [place] [address] [place] [address] Ifeoma Hanson MD [address] [place] [address] documented as of this encounter Goals Goal [...] Benito, OT Note: Patient will increase L funeral arrangement director strength (4lbs) to 60 lbs or more in order to open pill bottles with greater ease x12 weeks Patient will increase L lateral pinch (3.5), L tip pinch (2.5), L 3 jaw pinch (2.5) by 5 lbs each in order for greater ease with typing x12 weeks. 06/18/2019 L funeral arrangement director- 20 lbs L lateral pinch- 6.2 Tip [...] on filedocumented in this encounter Care Teams Retirement Assistant Relationship Specialty Start Date End Date Madhav Mcfadden MD [address] [place] [address] PCP - General Family Medicine 01/16/22 Madhav Mcfadden MD [address] [place] [address] PCP - [employer] Attributed 07/06/22 07/05/23 Cathleen Allan MD Urology 09/15/16 Pete Hester MD [address] [place] [address] Surgery, Orthopedic 08/15/19 Pati Armendariz, PhD [address] [place] [address] Clinical Psychologist Psychology 09/16/21 Yasmine Cohen, RN [address] [place] [address] [facility] Community Sand Tester 07/21/22 08/26/23 Bre Almaguer, RN 1290 [address] Degroot [address] [address] [facility] Community Sand Tester 10/03/22 11/13/22 Romero Pryor MD [address] [place] [address] Cardiovascular Disease 02/05/23 Prerna Paulino MD [address] [place] [address] Internal Medicine 07/04/24 Magda Davis MD [address] [place] [address] Gastroenterology 07/04/24 Ifeoma Hanson MD [address] [place] [address] Endocrinology 07/04/24 Ifeoma Hanson MD [address] [place] [address] Endocrinology 11/26/24 documented as of this encounter
--- OUTSIDE RECORDS SUMMARY | 2025-07-24 20:34 | XMS_ITS | Encounter Summary ---
Author Organization [facility] Address [address] [place] [address] Care Team Providers Care Bread Dough Mixer Name Role Phone Jacqueline Kay MD Primary Care Provider Unava ilable Jacqueline Kay MD Primary Care Provider Unava ilable Jacqueline Kay MD Unavailable Unavailable Jacqueline Kay MD Unavailable Unavailable Stephanie Darnell I SCREED PERSON Unavailable [phone] Stephanie Darnell I SCREED PERSON Unavailable +[phone] Cathleen Allan MD Unavailable [phone] Pete Hester MD Unavailable [phone] Pati Armendariz PhD Unavailabl e Madhav Mcfadden MD Primary Care Provider [phone] Jacqueline Kay MD Unavailable Unavailable Yasmine Cohen RN Unavailable Unavaila ble Bre Almaguer RN Unavailable [phone] Madhav Mcfadden MD Unavailable [phone] Romero Pryor MD Unavailable [phone] Prerna Paulino MD Unavailable +[phone] Magda Davis MD Unavailable [phone] Ifeoma Hanson MD Unavailable Ifeoma Hanson MD Unavailable Encounter Details Date Type Department Care Team (Late st Contact Info) Description 10/03/2019 Scanned Document [facility] Keron [address] [place] [address] [place] [address] Jacqueline Kay MD Social History Tobacco Use [...] 2025 8:00 AM EST Office Visit [address] [phone] Madhav Mcfadden MD [address] [place] [address] 09/01/2025 9:20 AM EST Office Visit MG PAIN MGMT [id number] [address] [address] Reji Mi, DO [address] [place] [address] [phone] 09/29/2025 9:20 AM EST Office Visit MG PAIN MGMT [id number] [address] [address] Reji Mi, DO [address] [place] [address] [phone] 10/27/2025 9:40 AM EDT Office Visit MG PAIN MGMT [id number] [address] [place] [phone] Reji Mi, DO [address], [place] [phone] 12/01/2025 9:40 AM EDT Office Visit MG PAIN MGMT [id number] [address] [place] [phone] Reji Miil, DO [address], [place] [phone] 02/03/2026 9:30 AM EDT Telemedicine [facility] Endocrinology [place] [address] [place] [address], [place] [address] Ifeoma Hanson MD [address] [place] [address], [place] [address] documented as of this encounter Goals Goal [...] Benito, DON Note: Patient will increase L media center assistant strength (4lbs) to 60 lbs or more in order to open pill bottles with greater ease x12 weeks Patient will increase L lateral pinch (3.5), L tip pinch (2.5), L 3 jaw pinch (2.5) by 5 lbs each in order for greater ease with typing x12 weeks. 06/18/2019 L media center assistant- 20 lbs L lateral pinch- 6.2 Tip [...] documented as of this encounter Care Teams Bread Dough Mixer Relationship Specialty Start Date End Date Jacqueline Kay MD PCP - General Family Medicine 11/01/17 04/28/21 Jacqueline Kay MD PCP - General Family Medicine 04/29/21 01/15/22 Jacqueline Kay MD PCP - [employer] Attributed 06/06/20 07/05/20 Stephanie Darnell I, SCREED PERSON [address] [address] PCP - [employer] Attributed 07/06/20 10/03/20 Stephanie Darnell I, SCREED PERSON [address] [place] [address] PCP - [employer] Attributed 05/06/21 11/03/21 Madhav Mcfadden MD [address] [place] [address] PCP - General Family Medicine 01/16/22 Jacqueline Kay MD PCP - [employer] Attributed 11/04/21 07/05/22 Madhav Mcfadden MD [address] [place] [address] PCP - [employer] Attributed 07/06/22 07/05/23 Jacqueline Kay MD Family Medicine 04/29/21 03/30/22 Cathleen Allan MD [address] [place] [address] Urology 09/15/16 Pete Hester MD [address] [address] Surgery, Orthopedic 08/15/19 Pati Armendariz, PhD [address] [place] [address] Clinical Psychologist Psychology 09/16/21 Yasmine Cohen, RN 0[address] [place] [address] [facility] Community Civil Engineering Professor 07/21/22 08/26/23 Bre Almaguer, RN [address] [address] [facility] Community Civil Engineering Professor 10/03/22 11/13/22 Romero Pryor MD [address] [place] [address] Cardiovascular Disease 02/05/23 Prerna Paulino MD [address] [place] [address] Internal Medicine 07/04/24 Magda Davis MD [address] [place] [address] Gastroenterology 07/04/24 Ifeoma Hanson MD [address] [place] [address] Endocrinology 07/04/24 Ifeoma Hanson MD [address] [place] [address] Endocrinology 11/26/24 documented as of this encounter
--- OUTSIDE RECORDS SUMMARY | 2025-07-24 20:34 | XMS_ITS | Encounter Summary ---
Author Organization [facility] Address [address] [place] [address] Care Team Providers Care Platinum And Palladium Kettle Tender Name Role Phone Cathleen Allan MD Unavailable [phone] Pete Hester MD Unavailable [phone] Pati Armendariz PhD Unavailabl e Madhav Mcfadden MD Primary Care Provider [phone] Romero Pryor MD Unavailable [phone] Prerna Paulino MD Unavailable [phone] Magda Davis MD Unavailable [phone] Ifeoma Hanson MD Unavailable [phone] Ifeoma Hanson MD Unavailable + [phone] Encounter Details Date Type Department Care Team (Late st Contact Info) Description 02/19/2024 Scanned Document [facility] GASTRO SCAN Gastroenterology, Scan Social History Tobacco [...] slept in a correction (including now)? No 04/02/2023 Sex and Gender [...] Description 2025 8:00 AM EST Office Visit [address] [phone] Madhav Mcfadden MD [address] [place] [address] [place] [phone] 09/01/2025 9:20 AM EST Office Visit [facility] PA[facility] MGMT [id number] [address] [place] [address] Shmuel, Reji Joni, DO [address] [place] [address] 09/29/2025 9:20 AM EST Office Visit [facility] [id number] [address] [phone] Shmuel, Reji Joni, DO [address] [place] [address] 10/27/2025 9:40 AM EDT Office Visit [facility] [id number] [address] [place] [phone] Shmuel, Reji Joni, DO [address] [place] [address] 12/01/2025 9:40 AM EDT Office Visit [facility] [id number] [address] [phone] Shmuel, Reji Joni, DO [address] [place] [address] 02/03/2026 9:[address] [facility] Endocrinology [place] [address] [place] [phone] Ifeoma Hanson MD [address] [place], [place] [phone] documented as of this encounter Goals Goal [...] and he was provided today with a [facility]., ongoing OT LTG 2 Occupational Therapy No Maida Benito OT Note: Patient will decrease Quick Dash score from 79.5 to 10 or less in order to complete functional tasks with greater ease x 12 weeks 06/18/2019 Scored the same today, ongoing OT LTG 3 Occupational Therapy No Maida Benito OT Note: Patient will increase L propulsion engineer strength (4lbs) to 60 lbs or more in order to open pill bottles with greater ease x12 weeks Patient will increase L lateral pinch (3.5), L tip pinch (2.5), L 3 jaw pinch (2.5) by 5 lbs each in order for greater ease with typing x12 weeks. 06/18/2019 L propulsion engineer- 20 lbs L lateral pinch- 6.2 [...] on filedocumented in this encounter Care Teams Platinum And Palladium Kettle Tender Relationship Specialty Start Date End Date Madhav Mcfadden MD [address] [place] [phone] PCP - General Family Medicine 01/16/22 Cathleen Allan MD Urology 09/15/16 Pete Hester MD [address] [place] [address] Surgery, Orthopedic 08/15/19 Pati Armendariz, PhD [address] [place] [address] Clinical Psychologist Psychology 09/16/21 Romero Pryor MD [address] [place] [address] Cardiovascular Disease 02/05/23 Prerna Paulino MD [address] [place] [address] Internal Medicine 07/04/24 Magda Davis MD [address] [place] [address] Gastroenterology 07/04/24 Ifeoma Hanson MD [address] [place] [address] Endocrinology 07/04/24 Ifeoma Hanson MD [address] [place] [address] Endocrinology 11/26/24 documented as of this encounter
--- OUTSIDE RECORDS SUMMARY | 2025-07-24 20:34 | XMS_ITS | Encounter Summary ---
Author Organization [facility] Address [address] [place] [address] Care Team Providers Care Dietetic Technician Registered Name Role Phone Jacqueline Kay MD Primary Care Provider Unava ilable Jacqueline Kay MD Primary Care Provider Unava ilable Jacqueline Kay MD Unavailable Unavailable Jacqueline Kay MD Unavailable Unavailable Stephanie Darnell I PRODUCE CLERK Unavailable [phone] Stephanie Darnell I PRODUCE CLERK Unavailable [phone] Cathleen Allan MD Unavailable [phone] Pete Hester MD Unavailable [phone] Pati Armendariz PhD Unavailabl e Madhav Mcfadden MD Primary Care Provider [phone] Jacqueline Kay MD Unavailable Unavailable Yasmine Cohen RN Unavailable Unavaila ble Bre Almaguer RN Unavailable [phone] Madhav Mcfadden MD Unavailable [phone] Romero Pryor MD Unavailable [phone] Prerna Paulino MD Unavailable [phone] Magda Davis MD Unavailable [phone] Ifeoma Hanson MD Unavailable Ifeoma Hanson MD Unavailable [phone] Encounter Details Date Type Department Care Team (Late st Contact Info) Description 09/17/2019 Scanned Document [facility] PRIMARY CARE SCAN Jacqueline Kay MD [...] 2025 8:00 AM EST Office Visit [address] [phone] Madhav Mcfadden MD [address] [place] [address] 09/01/2025 9:20 AM EST Office Visit [facility] PA[facility] [id number] [address] [phone] Reji Mi, DO [address] [place] [address] [phone] 09/29/2025 9:20 AM EST Office Visit [id number] [address] [address] Reji Mi, DO [address] [phone] 10/27/2025 9:40 AM EDT Office Visit MG PAIN MGMT [id number] [address] [phone] Shmuel Reji Joni, DO [address], [place] [phone] 12/01/2025 9:40 AM EDT Office Visit MG PAIN MGMT [id number] [address] [place] [address] Shmuel Reji Joni, DO [address], [place] [phone] 02/03/2026 9:30 AM EDT Telemedicine [facility] Endocrinology [place] [address] [place] [phone] [place] [address] [place] [address] [phone] documented as of this encounter Goals Goal [...] Benito, DON Note: Patient will increase L cleaning maid strength (4lbs) to 60 lbs or more in order to open pill bottles with greater ease x12 weeks Patient will increase L lateral pinch (3.5), L tip pinch (2.5), L 3 jaw pinch (2.5) by 5 lbs each in order for greater ease with typing x12 weeks. 06/18/2019 L cleaning maid- 20 lbs L lateral pinch- 6.2 Tip [...] documented as of this encounter Care Teams Dietetic Technician Registered Relationship Specialty Start Date End Date Jacqueline Kay MD PCP - General Family Medicine 11/01/17 04/28/21 Jacqueline Kay MD PCP - General Family Medicine 04/29/21 01/15/22 Jacqueline Kay MD PCP - [employer] Commercial Attributed 06/06/20 07/05/20 Stephanie Darnell I, PRODUCE CLERK [address] [address] PCP - [employer] Commercial Attributed 07/06/20 10/03/20 Stephanie Darnell I, PRODUCE CLERK [address] [address] PCP - [employer] Commercial Attributed 05/06/21 11/03/21 Madhav Mcfadden MD [address] [place] [address] PCP - General Family Medicine 01/16/22 Jacqueline Kay MD PCP - [employer] Commercial Attributed 11/04/21 07/05/22 Madhav Mcfadden MD [address] [place] [address] PCP - [employer] Commercial Attributed 07/06/22 07/05/23 Jacqueline Kay MD Family Medicine 04/29/21 03/30/22 Cathleen Allan MD [address] [address] Urology 09/15/16 Pete Hester MD 31 [facility] [address] [place] [address] Surgery, Orthopedic 08/15/19 Pati Armendariz, PhD [address] [address] Clinical Psychologist Psychology 09/16/21 Yasmine Cohen, RN [address] [place] [address] ICP Community Office Machines Teacher 07/21/22 08/26/23 Bre Almaguer, RN [address] [place] [facility] 4 [place] [address] ICP Community Office Machines Teacher 10/03/22 11/13/22 Romero Pryor MD [address] [place] [address] Cardiovascular Disease 02/05/23 Prerna Paulino MD [address] [place] [address] Internal Medicine 07/04/24 Magda Davis MD [address] [place] [address] Gastroenterology 07/04/24 Ifeoma Hanson MD [address] [place] [address] Endocrinology 07/04/24 Ifeoma Hanson MD [address] [place] [address] Endocrinology 11/26/24 documented as of this encounter
--- OUTSIDE RECORDS SUMMARY | 2025-07-24 20:34 | XMS_ITS | Encounter Summary ---
Author Organization [facility] Address [address] [place] [address] Care Team Providers Care Family Court Registrar Name Role Phone Cathleen Allan MD Unavailable [phone] Pete Hester MD Unavailable [phone] Ptai Armendariz PhD Unavailabl e Madhav Mcfadden MD Primary Care Provider [phone] Yasmine Cohen RN Unavailable Unavaila ble Romero Pryor MD Unavailable [phone] Prerna Paulino MD Unavailable [phone] Magda Davis MD Unavailable [phone] Ifeoma Hanson MD Unavailable [phone] Ifeoma Hanson MD Unavailable [phone] Encounter Details Date Type Department Care Team (Late st Contact Info) Description 08/02/2023 Scanned Document [facility] INTERNAL MED SCAN Internal Medicine, Scan Social History Tobacco Use Types [...] in a jail (including now)? No 04/02/2023 Sex and Gender [...] Description 2025 8:00 AM EST Office Visit [address] [phone] Madhav Mcfadden MD [address] [place] [address] 09/01/2025 9:20 AM EST Office Visit [facility] PA[facility] [id number] [address] [phone] Reji Mi, DO [address] [place] [address] 09/29/2025 9:20 AM EST Office Visit MG PAIN MGMT [id number] [address] [phone] Reji Miil, DO [address] [place] [address] 10/27/2025 9:40 AM EDT Office Visit MG PAIN MGMT [id number] [address] [phone] ShmuelReji Joni, DO [address] [place] [address] 12/01/2025 9:40 AM EDT Office Visit MG PAIN MGMT [id number] [address] [phone] ShmuelReji burnett, DO [address] [place] [address] 02/03/2026 9:30 AM EDT Telemedicine [facility] Endocrinology [address] [place] [phone] Ifeoma Hanson MD [address] [place] [address] documented as of this encounter Goals Goal [...] Benito OT Note: Patient will increase L bus escort strength (4lbs) to 60 lbs or more in order to open pill bottles with greater ease x12 weeks Patient will increase L lateral pinch (3.5), L tip pinch (2.5), L 3 jaw pinch (2.5) by 5 lbs each in order for greater ease with typing x12 weeks. 06/18/2019 L bus escort- 20 lbs L lateral pinch- 6.2 Tip [...] on filedocumented in this encounter Care Teams Family Court Registrar Relationship Specialty Start Date End Date Madhav Mcfadden MD [address] [place] [phone] PCP - General Family Medicine 01/16/22 Cathleen Allan MD Urology 09/15/16 Pete Hester MD [address] [place] [address] Surgery, Orthopedic 08/15/19 Pati Armendariz, PhD [address] [place] [address] Clinical Psychologist Psychology 09/16/21 Yasmine Cohen, RN [address] [place] [address] [facility] Community Table Top Tile Setter 07/21/22 08/26/23 Romero Pryor MD [address] [place] [address] Cardiovascular Disease 02/05/23 Prerna Paulino MD [address] [place] [address] Internal Medicine 07/04/24 Magda Davis MD [address] [place] [address] Gastroenterology 07/04/24 Ifeoma Hanson MD [address] [place] [address] Endocrinology 07/04/24 Ifeoma Hanson MD [address] [place] [address] Endocrinology 11/26/24 documented as of this encounter
--- OUTSIDE RECORDS SUMMARY | 2025-07-24 20:35 | XMS_ITS | Patient Health Record ---
Author Organization [facility] Address [address] [place] [id number] Care Team Providers Care Photoengraving Proofer Apprentice Name Role Phone Axel Stoll MD Primary Care Provider Unavail able shahlaAmy SHAUN Unavailable [phone] Reason For Referral No Information Plan Of Treatment No Information Insurance Providers Payer Name Payer Address Payer Phone Subscriber Number Group Number Insured Name Patient Relationship to Insured Coverage Start Date Coverage End Date [employer] [address] [place], [place] [id number] PEGGY GONG Self - patient is the insured [employer] [address] [place], [place] [id number] [phone] PEGGY GONG Self - patient is the insured Medical (General) History Surgical History Surgery Date(Month/Year) Elbow, staph infection 2006
--- OUTSIDE RECORDS SUMMARY | 2025-07-24 20:35 | XMS_ITS | Encounter Summary ---
Author Organization [facility] Address [address] [place] [address] Care Team Providers Care Platform Software Engineer Name Role Phone Madhav Mcfadden MD Primary Care Provider [phone] Reason for Visit * Reason Comments Med Change Request Encounter Details Date Type Department Care Team ([facility] Contact Info) Description 03/18/2024 Refill [facility] [address] [place] [address] 40 [facility] [address] [place] [address] Gracy Vergara MD [address] [place] [phone] Med Change Request Social History Tobacco Use Types Packs/Day Years [...] hurting or threatening you in anyway? no 02/12/2024 Physical Indicators of Abuse No evidence of phys ical abuse 02/12/2024 Sex and Gender Information Value Date Recorded Sex Assigned at Male 06/16/2025 10:30 AM EST Legal Sex Male 8:50 PM EST Gender Identity Male 06/16/2025 10:30 AM EST Sexual Orientation Not on file documented as of this encounter Plan of Treatment Upcoming Encounters Date Type Department Care Team (Late st Contact Info) Description 08/05/2025 1:40 PM EST [facility] [address] [place] [address]. [place] [address] Bal Villavicencio MD [address] [place] [address] 08/11/2025 4:00 PM EST Evaluation [facility] 200 [place] [address] Kerry Kaba MD 200 [facility] 204 [place] [phone] 08/17/2025 1:00 PM EST Office Visit [facility] at [address] [place] [address] 8 [place] [address] Petrona Nesbitt PA [address] [place] [phone] 09/04/2025 10:15 AM EST [facility] at [address] 6[address] [place] [address] Carlos Lo MD [address] [place] [phone] 10/20/2025 4:00 PM EDT Telemedicine [facility] 40 [facility] 40 [facility] [address] [place] [address] Prerna Paulino MD [address] [place] [phone] 10/29/2025 9:00 AM EDT Office Visit [facility] [address] [place] [address], [place] [address] Petrona Nesbitt PA [address] [place] [phone] 12/10/2025 10:00 AM EDT Office Visit [facility] [address] [place] [address], [place] [address] Petrona Nesbitt PA [address] [place] [phone] 01/21/2026 10:00 AM EDT Office Visit [facility] [address] [place] [address], [place] [address] Petrona Nesbitt PA [address] [place] [phone] 03/04/2026 10:00 AM EDT Office Visit [facility] [address] [place] [address], [place] [address] Petrona Nesbitt PA [address] [place] [phone] 04/15/2026 10:30 AM EDT Office Visit [facility] [address] [place] [address] Ebonie Crowley MD [address] [place] [phone] documented as of this encounter Visit Diagnoses Not on filedocumented in this encounter Additional Health Concerns Assessment Noted Time PHQ-9 Depression Total Score: 0 08/18/19 24 6:00 PM EST documented as of this encounter Care Teams Platform Software Engineer Relationship Specialty Start Date End Date Madhav Mcfadden MD [address] [place] [address] PCP - General Family Medicine 08/20/23 documented as of this encounter
--- OUTSIDE RECORDS SUMMARY | 2025-07-24 20:35 | XMS_ITS | Encounter Summary ---
Author Organization [facility] Address [address] [place] [address] Care Team Providers Care Convolute Tube Winder Name Role Phone Madhav Mcfadden MD Primary Care Provider [phone] Reason for Visit * Reason Onset Date Comments Advice Only 08/11/2024 Patient wanted t o know what time his procedure was scheduled for. Encounter Details Date Type Department Care Team ([facility] Contact Info) Description 08/11/2024 Telephone [facility] Interventional Radiology [address] [place] [address] Physician, Radiology Referring Med Advice Only (Patient wanted to know what time his procedure was scheduled for.) Social History Tobacco Use Types Packs/Day Years [...] hurting or threatening you in anyway? no 08/12/2024 Physical Indicators of Abuse No evidence of phys ical abuse 08/12/2024 Sex and Gender Information Value Date Recorded Sex Assigned at Male 06/16/2025 10:30 AM EST Legal Sex Male 8:50 PM EST Gender Identity Male 06/16/2025 10:30 AM EST Sexual Orientation Not on file documented as of this encounter Miscellaneous Notes * Telephone Encounter - Adelina Aguilar MD - 08/12/2024 3:03 PM EST Images from the original note were not included. [facility] Brief Note Mr. Torres called the answering service to confirm the timing of his procedure on 08/11/23, this information was provided and he was told to arrive to [facility] at 9:30 am on 08/12/23. Thank you for involving Interventional Radiology in the care of your patient. Please text or call my Mobile Heart Beat with any questions or concerns. With urgent questions or concerns, please contact IR at: Inpatient -For [facility]: Page INTERVENTIONAL RADIOLOGY CONSULT - IR - VASCULAR [facility] via Smart Web -For [facility]: Page INTERVENTIONAL RADIOLOGY CONSULT - IR - VASCULAR [facility] via Smart Web - For BH: Use pager [phone] Outpatient (phone, all locations) - [phone] (IRIR) Adelina Aguilar MD 08/12/2024 documented in this encounter Plan of Treatment Upcoming Encounters Date Type Department Care Team (Late st Contact Info) Description 08/05/2025 1:40 PM EST Appointment [facility] CT Scan [address] [place] [address]. [place] [address] Bal Villavicencio MD [address] [place] [address] 08/11/2025 4:00 PM EST Evaluation [facility] 200 [place] [address] Kerry Kaba MD 200 [facility] 204 [place] [address] 08/17/2025 1:00 PM EST Office Visit [facility] [address] [place] [address] Petrona Nesbitt PA [address] [place] [phone] 09/04/2025 10:15 AM EST [facility] at [address] 6th [place] [address] Carlos Lo MD [address] [place] [phone] 10/20/2025 4:00 PM EDT Telemedicine [facility] 40 [facility] 40 [facility] [address] [place] [address] Prerna Paulino MD [address] [phone] 10/29/2025 9:00 AM EDT Office Visit [facility] [address] [place] [address] Petrona Nesbitt PA [address] [place] [phone] 12/10/2025 10:00 AM EDT Office Visit [facility] [address] [place] [address] Petrona Nesbitt PA [address] [place] [phone] 01/21/2026 10:00 AM EDT Office Visit [facility] [address] [place] [address] Petrona Nesbitt PA [address] [place] [phone] 03/04/2026 10:00 AM EDT Office Visit [facility] [address] [place] [address] Petrona Nesbitt PA [address] [place] [phone] 04/15/2026 10:30 AM EDT Office Visit [facility] [address] [place] [address], [place] [address] Ebonie Crowley MD [address] [place] [phone] documented as of this encounter Visit Diagnoses Not on filedocumented in this encounter Additional Health Concerns Assessment Noted Time PHQ-9 Depression Total Score: 0 08/18/19 24 6:00 PM EST documented as of this encounter Care Teams Convolute Tube Winder Relationship Specialty Start Date End Date Madhav Mcfadden MD [address] [place] [address] PCP - General Family Medicine 08/20/23 documented as of this encounter
--- OUTSIDE RECORDS SUMMARY | 2025-07-24 20:35 | XMS_ITS | Encounter Summary ---
Author Organization [facility] Address [address] [place] [address] Care Team Providers Care Saturation Equipment Operator Name Role Phone Madhav Mcfadden MD Primary Care Provider [phone] Encounter Details Date Type Department Care Team ([facility] st Contact Info) Description 07/07/2024 Scanned Document [facility] SCHEDULING [address] [place], [place] [phone] Provider, Historical . Social History Tobacco Use [...] hurting or threatening you in anyway? no 05/23/2024 Physical Indicators of Abuse No evidence of phys ical abuse 05/23/2024 Sex and Gender Information Value Date Recorded Sex Assigned at Male 06/16/2025 10:30 AM EST Legal Sex Male 8:50 PM EST Gender Identity Male 06/16/2025 10:30 AM EST Sexual Orientation Not on file documented as of this encounter Plan of Treatment Upcoming Encounters Date Type Department Care Team (Late st Contact Info) Description 08/05/2025 1:40 PM EST [facility] [address] [place] [address]. [place] [address] Bal Villavicencio MD [facility] [address] [place] [phone] 08/11/2025 4:00 PM EST Evaluation [facility] 200 [place] [address] Kerry Kaba MD 200 [facility] 204 [place] [phone] 08/17/2025 1:00 PM EST Office Visit [facility] at [address] [place] [address] Petrona Nesbitt PA [address] [place] [phone] 09/04/2025 10:15 AM EST [facility] at [address] 6th [place] [address] Carlos Lo MD [address] [place] [phone] 10/20/2025 4:00 PM EDT Telemedicine [facility] 40 [facility] 40 [facility] 1A [place] [address] Prerna Paulino MD [address] [phone] 10/29/2025 9:00 AM EDT Office Visit [facility] [address] [place] [address] Petrona Nesbitt PA [address] [place] [phone] 12/10/2025 10:00 AM EDT Office Visit [facility] [address] [place] [address], [place] [address] Petrona Nesbitt PA [address] [place] [phone] 01/21/2026 10:00 AM EDT Office Visit [facility] [address] [place] [address], [place] [address] Petrona Nesbitt PA [address] [place] [phone] 03/04/2026 10:00 AM EDT Office Visit [facility] [address] [place] [address] Petrona Nesbitt PA [address] [place] [phone] 04/15/2026 10:30 AM EDT Office Visit [facility] at [address] [place] [address] Ebonie Crowley MD [address] [place] [phone] documented as of this encounter Procedures Procedure Name Priority Date/Time Associated Diagnosis Comments LAB SCAN Routine 07/04/2024 1:34 PM EST documented in this encounter Results * Lab Scan (07/04/2024 1:34 PM EST) us Historical Provider LAB BLOOD ORDERABLES Final R esult documented in this encounter Visit Diagnoses Not on filedocumented in this encounter Additional Health Concerns Assessment Noted Time PHQ-9 Depression Total Score: 0 08/18/19 24 6:00 PM EST documented as of this encounter Care Teams Saturation Equipment Operator Relationship Specialty Start Date End Date Madhav Mcfadden MD [address] [place] [address] PCP - General Family Medicine 08/20/23 documented as of this encounter
--- OUTSIDE RECORDS SUMMARY | 2025-07-24 20:35 | XMS_ITS | Encounter Summary ---
Author Organization [facility] Address [address] [place] [address] Care Team Providers Care Exercise Physiologist Name Role Phone Cathleen Allan MD Unavailable [phone] Pete Hester MD Unavailable [phone] Pati Armendariz PhD Unavailabl e Madhav Mcfadden MD Primary Care Provider [phone] Yasmine Cohen RN Unavailable Unavaila ble Madhav Mcfadden MD Unavailable [phone] Romero Pryor MD Unavailable [phone] Prerna Paulino MD Unavailable [phone] Magda Davis MD Unavailable [phone] Ifeoma Hanson MD Unavailable [phone] Ifeoma Hanson MD Unavailable [phone] Encounter Details Date Type Department Care Team (Late st Contact Info) Description 02/12/2023 Scanned Document [facility] SCAN Pharmacy, Scan Social History Tobacco [...] in a skilled nursing (including now)? No 01/24/2023 Sex and Gender [...] 2025 8:00 AM EST Office Visit [address] [phone] Madhav Mcfadden MD [address] [place] [address] [phone] 09/01/2025 9:20 AM EST Office Visit [facility] [id number] [address] [phone] ShmuelReji burnettil, DO [address] [place] [address] 09/29/2025 9:20 AM EST Office Visit [facility] [id number] [address] [phone] ShmuelReji silver Joni, DO [address] [place] [address] 10/27/2025 9:40 AM EDT Office Visit [id number] [address] [phone] Reji Miil, DO [address] [place] [address] 12/01/2025 9:40 AM EDT Office Visit [id number] [address] [phone] ShmuelReji burnett Joni, DO [address] [place] [address] 02/03/2026 9:30 AM EDT Telemedicine [facility] Endocrinology [address] [phone] Ifeoma Hanson MD [address] [place] [address] documented as of this encounter Goals Goal [...] and he was provided today with a [facility] HEP., ongoing OT LTG 2 Occupational Therapy No Maida Benito OT Note: Patient will decrease Quick Dash score from 79.5 to 10 or less in order to complete functional tasks with greater ease x 12 weeks 06/18/2019 Scored the same today, ongoing OT LTG 3 Occupational Therapy No Maida Benito, OT Note: Patient will increase L entry level project engineer strength (4lbs) to 60 lbs or more in order to open pill bottles with greater ease x12 weeks Patient will increase L lateral pinch (3.5), L tip pinch (2.5), L 3 jaw pinch (2.5) by 5 lbs each in order for greater ease with typing x12 weeks. 06/18/2019 L entry level project engineer- 20 lbs L lateral pinch- 6.2 [...] on filedocumented in this encounter Care Teams Exercise Physiologist Relationship Specialty Start Date End Date Madhav Mcfadden MD [address] [place] [address] PCP - General Family Medicine 01/16/22 Madhav Mcfadden MD [address] [place] [address] PCP - [employer] Commercial Attributed 07/06/22 07/05/23 Cathleen Allan MD Urology 09/15/16 Pete Hester MD [address] [place] [address] Surgery, Orthopedic 08/15/19 Pati Armendariz, PhD [address] [place] [address] Clinical Psychologist Psychology 09/16/21 Yasmine Cohen RN [address] [place] [address] [facility] Community Glue Mixer 07/21/22 08/26/23 Romero Pryor MD [address] [place] [address] Cardiovascular Disease 02/05/23 Prerna Paulino MD [address] [place] [address] Internal Medicine 07/04/24 Magda Davis MD [address] [place] [address] Gastroenterology 07/04/24 Ifeoma Hanson MD [address] [place] [address] Endocrinology 07/04/24 Ifeoma Hanson MD [address] [place] [address] Endocrinology 11/26/24 documented as of this encounter
--- OUTSIDE RECORDS SUMMARY | 2025-07-24 20:35 | XMS_ITS | Encounter Summary ---
Author Organization [facility] Address [address] [place] [address] Care Team Providers Care Run Boat Operator Name Role Phone Cathleen Allan MD Unavailable [phone] Pete Hester MD Unavailable [phone] Pati Armendariz PhD Unavailabl e Madhav Mcfadden MD Primary Care Provider [phone] Yasmine Cohen RN Unavailable Unavaila ble Madhav Mcfadden MD Unavailable [phone] Romero Pryor MD Unavailable [phone] Prerna Paulino MD Unavailable [phone] Magda Davis MD Unavailable [phone] Ifeoma Hanson MD Unavailable [phone] Ifeoma Hanson MD Unavailable [phone] Encounter Details Date Type Department Care Team (Late st Contact Info) Description 01/02/2023 Scanned Document [facility] [address] [place] [phone] Arline Lepe, MANOLO 21 [facility] [place] [address] [place], [place] [address] Social History Tobacco Use Types Packs/Day Years [...] slept in a fpc (including now)? No 11/06/2022 Sex and Gender Information Value Date Recorded Sex Assigned at Male 08/16/2022 10:08 AM EST Legal Sex Male 2:40 PM EDT Gender Identity Male 08/16/2022 10:08 AM EST Sexual Orientation Heterosexual (straight) 01/11 /2023 10:08 AM EST COVID-19 Exposure Response Date Recorded In the last 10 days, have yo u been in contact with someone who was confirmed or suspected to have Coronavirus/COVID-19? No / Unsure 12/27/2022 1:25 PM EDT documented as of this encounter Plan of Treatment Upcoming Encounters Date Type Department Care Team (Late st Contact Info) Description 2025 8:00 AM EST Office Visit [address] [phone] Madhav Mcfadden MD [address] [place] [address] [phone] 09/01/2025 9:20 AM EST Office Visit [facility] [id number] [address] [phone] ShmuelReji burnett, DO [address] [place] [address] 09/29/2025 9:20 AM EST Office Visit [id number] [address] [phone] Reji Mi Joni, DO [address] [place] [address] 10/27/2025 9:40 AM EDT Office Visit [id number] [address] [phone] ShmuelReji Joni, DO [address] [place] [address] 12/01/2025 9:40 AM EDT Office Visit [facility] [id number] [address] [phone] ShmuelReji burnettil, DO [address] [place] [address] 02/03/2026 9:30 AM EDT Telemedicine [facility] Endocrinology [place] [address] [place] [phone] Ifeoma Hanson MD [address] [place] [address] documented as of this encounter Goals Goal [...] and he was provided today with a [facility] HEP., ongoing OT LTG 2 Occupational Therapy No Maida Benito, OT Note: Patient will decrease Quick Dash score from 79.5 to 10 or less in order to complete functional tasks with greater ease x 12 weeks 06/18/2019 Scored the same today, ongoing OT LTG 3 Occupational Therapy No Maida Benito, OT Note: Patient will increase L cover cutter machine strength (4lbs) to 60 lbs or more in order to open pill bottles with greater ease x12 weeks Patient will increase L lateral pinch (3.5), L tip pinch (2.5), L 3 jaw pinch (2.5) by 5 lbs each in order for greater ease with typing x12 weeks. 06/18/2019 L cover cutter machine- 20 lbs L lateral pinch- 6.2 Tip [...] on filedocumented in this encounter Care Teams Run Boat Operator Relationship Specialty Start Date End Date Madhav Mcfadden MD [address] [place] [address] PCP - General Family Medicine 01/16/22 Madhav Mcfadden MD [address] [place] [address] PCP - [employer] Commercial Attributed 07/06/22 07/05/23 Cathleen Allan MD Urology 09/15/16 Pete Hester MD [address] [place], [place] [phone] Surgery, Orthopedic 08/15/19 Pati Armendariz, PhD [address] [address] Clinical Psychologist Psychology 09/16/21 Yasmine Cohen, RN [address] [place] [address] [facility] Community Call Center Nurse 07/21/22 08/26/23 Romero Pryor MD [address] [place] [address] Cardiovascular Disease 02/05/23 Prerna Paulino MD [address] [place] [address] Internal Medicine 07/04/24 Magda Davis MD [address] [place] [address] Gastroenterology 07/04/24 Ifeoma Hanson MD [address] [place] [address] Endocrinology 07/04/24 Ifeoma Hanson MD [address] [place] [address] Endocrinology 11/26/24 documented as of this encounter
--- OUTSIDE RECORDS SUMMARY | 2025-07-24 20:35 | XMS_ITS | Encounter Summary ---
Author Organization [facility] Address [address] [place] [address] Care Team Providers Care Patient Services Manager Name Role Phone Cathleen Allan MD Unavailable [phone] Pete Hester MD Unavailable [phone] Pati Armendariz PhD Unavailabl e Madhav Mcfadden MD Primary Care Provider [phone] Yasmine Cohen RN Unavailable Unavaila ble Madhav Mcfadden MD Unavailable [phone] Romero Pryor MD Unavailable [phone] Prerna Paulino MD Unavailable [phone] Magda Davis MD Unavailable [phone] Ifeoma Hanson MD Unavailable [phone] Ifeoma Hanson MD Unavailable [phone] Encounter Details Date Type Department Care Team (Late st Contact Info) Description 04/04/2023 Scanned Document [facility] SCAN Pharmacy, Scan Social History Tobacco [...] Description 2025 8:00 [place] [address] Madhav Mcfadden MD [address] [place] [address] 09/01/2025 9:20 AM EST Office Visit [id number] [address] [phone] ShmuelReji Joni, DO [address] [place] [address] 09/29/2025 9:20 AM EST Office Visit [id number] [address] [phone] ShmuelReji silver Joni, DO [address] [place] [address] 10/27/2025 9:40 AM EDT Office Visit [id number] [address] [phone] ShmuelReji Joni, DO [address] [place] [address] 12/01/2025 9:40 AM EDT Office Visit [id number] [address] [phone] Shmuel Reji Joni, DO [address] [place] [address] 29[address] 02/03/2026 9:30 AM EDT Telemedicine [facility] Endocrinology [address] [phone] Ifeoma Hanson MD [address] [place] [address] documented as of this encounter Goals Goal [...] he was provided today with a [facility] HEP., ongoing OT LTG 2 Occupational Therapy No Maida Benito, OT Note: Patient will decrease Quick Dash score from 79.5 to 10 or less in order to complete functional tasks with greater ease x 12 weeks 06/18/2019 Scored the same today, ongoing OT LTG 3 Occupational Therapy No Maida Benito OT Note: Patient will increase L information clerk strength (4lbs) to 60 lbs or more in order to open pill bottles with greater ease x12 weeks Patient will increase L lateral pinch (3.5), L tip pinch (2.5), L 3 jaw pinch (2.5) by 5 lbs each in order for greater ease with typing x12 weeks. 06/18/2019 L information clerk- 20 lbs L lateral pinch- 6.2 [...] on filedocumented in this encounter Care Teams Patient Services Manager Relationship Specialty Start Date End Date Madhav Mcfadden MD [address] [place] [address] PCP - General Family Medicine 01/16/22 Madhav Mcfadden MD [address] [place] [address] PCP - [employer] Commercial Attributed 07/06/22 07/05/23 Cathleen Allan MD Urology 09/15/16 Pete Hester MD [address] [place] [address] Surgery, Orthopedic 08/15/19 Pati Armendariz, PhD [address] [place] [address] Clinical Psychologist Psychology 09/16/21 Yasmine Cohen, RN [address] [place] [address] [facility] Community Gas Engine Operator Generators 07/21/22 08/26/23 Romero Pryor MD [address] [place] [address] Cardiovascular Disease 02/05/23 Prerna Paulino MD [address] [place] [address] Internal Medicine 07/04/24 Magda [place] MD [address] [place] [address] Gastroenterology 07/04/24 Ifeoma Hanson MD [address] [place] [address] Endocrinology 07/04/24 Ifeoma Hanson MD [address] [place] [address] Endocrinology 11/26/24 documented as of this encounter
--- OUTSIDE RECORDS SUMMARY | 2025-07-24 20:35 | XMS_ITS | Encounter Summary ---
Author Organization [facility] Address [address] [place] [address] Care Team Providers Care Tree Doctor Name Role Phone Cathleen Allan MD Unavailable [phone] Pete Hester MD Unavailable [phone] Pati Armendariz PhD Unavailabl e Madhav Mcfadden MD Primary Care Provider [phone] Yasmine Cohen RN Unavailable Unavaila ble Madhav Mcfadden MD Unavailable [phone] Romero Pryor MD Unavailable [phone] Prerna Paulino MD Unavailable [phone] Magda [place] MD Unavailable [phone] Ifeoma Hanson MD Unavailable [phone] Ifeoma Hanson MD Unavailable [phone] Encounter Details Date Type Department Care Team (Late st Contact Info) Description 12/27/2022 Scanned Document [facility] Pulmonary [place] [address] [place] [address] Pulmonary, Scan Social History Tobacco Use Types Packs/Day [...] slept in a prison (including now)? No 11/06/2022 Sex and Gender [...] Description 2025 8:00 AM EST Office Visit [address] [phone] Madhav Mcfadden MD [address] [place] [address] 09/01/2025 9:20 AM EST Office Visit [id number] [address] [phone] Reji Miil, DO [address] [place] [address] 09/29/2025 9:20 AM EST Office Visit [facility] [id number] [address] [phone] ShmuelReji Joni, DO [address] [place] [address] 10/27/2025 9:40 AM EDT Office Visit [id number] [address] [phone] Reji Mi, DO [address] [place] [address] 12/01/2025 9:40 AM EDT Office Visit [facility] PAIN MGMT [id number] [address] [phone] Reji Miil, [address] [address] 02/03/2026 9:30 AM EDT Telemedicine [facility] Endocrinology [place] [address] [place] [address] Ifeoma Hanson MD [address] [place] [address] documented as of this encounter Goals Goal [...] Benito, OT Note: Patient will increase L sales & service associate strength (4lbs) to 60 lbs or more in order to open pill bottles with greater ease x12 weeks Patient will increase L lateral pinch (3.5), L tip pinch (2.5), L 3 jaw pinch (2.5) by 5 lbs each in order for greater ease with typing x12 weeks. 06/18/2019 L sales & service associate- 20 lbs L lateral pinch- 6.2 [...] on filedocumented in this encounter Care Teams Tree Doctor Relationship Specialty Start Date End Date Madhav Mcfadden MD [address] [place] [address] PCP - General Family Medicine 01/16/22 Madhav Mcfadden MD [address] [place] [address] PCP - [employer] Commercial Attributed 07/06/22 07/05/23 Cathleen Allan MD Urology 09/15/16 Pete Hester MD [address] [place] [address] Surgery, Orthopedic 08/15/19 Pati Armendariz, PhD [address] [place] [address] Clinical Psychologist Psychology 09/16/21 Yasmine Cohen, RN [address] [place] [address] Community Structural Steel Worker 07/21/22 08/26/23 Romero Pryor MD [address] [place] [address] Cardiovascular Disease 02/05/23 Prerna Paulino MD [address] [place] [address] Internal Medicine 07/04/24 Magda [place] MD [address] [place] [address] Gastroenterology 07/04/24 Ifeoma Hanson MD [address] [place] [address] Endocrinology 07/04/24 Ifeoma Hanson MD [address] [place] [address] Endocrinology 11/26/24 documented as of this encounter
--- OUTSIDE RECORDS SUMMARY | 2025-07-24 20:35 | XMS_ITS | Encounter Summary ---
Author Organization [facility] Address [address] [place] [address] Care Team Providers Care Trailer Mechanic Name Role Phone Cathleen Allan MD Unavailable [phone] Pete Hester MD Unavailable [phone] Pati Armendariz PhD Unavailabl e Madhav Mcfadden MD Primary Care Provider [phone] Yasmine Choen RN Unavailable Unavaila ble Madhav Mcfadden MD Unavailable [phone] Romero Pryor MD Unavailable [phone] Prerna Paulino MD Unavailable [phone] Magda [place] MD Unavailable [phone] Ifeoma Hanson MD Unavailable [phone] Ifeoma Hanson MD Unavailable [phone] Encounter Details Date Type Department Care Team (Late st Contact Info) Description 03/23/2023 Scanned Document [facility] [address] [place] [address] Axel Tovar MD 85 [facility] [address] [place] [address] Social History Tobacco Use Types Packs/Day Years [...] slept in a half-way (including now)? No 01/24/2023 Sex and Gender [...] Description 2025 8:00 AM EST Office Visit [address] [place] [address] Madhav Mcfadden MD [address] [place] [address] 09/01/2025 9:20 AM EST Office Visit [facility] PA[facility] [id number] [address] [phone] Reji Mi, DO [address] [place] [address] 09/29/2025 9:20 AM EST Office Visit [facility] [id number] [address] [address] Reji Mi, DO [address] [place] [address] 10/27/2025 9:40 AM EDT Office Visit [facility] [id number] [address] [phone] Reji Mi, DO [address] [place] [address] 12/01/2025 9:40 AM EDT Office Visit MG PAIN MGMT [id number] [address] [phone] Reji Mi, DO [address] [place] [address] 02/03/2026 9:30 AM EDT Telemedicine [facility] Endocrinology [address] [place] [address] Ifeoma Hanson MD [address] [place] [address] documented as of this encounter Goals Goal [...] he was provided today with a [facility] ongoing OT LTG 2 Occupational Therapy No Maida Benito, OT Note: Patient will decrease Quick Dash score from 79.5 to 10 or less in order to complete functional tasks with greater ease x 12 weeks 06/18/2019 Scored the same today, ongoing OT LTG 3 Occupational Therapy No Maida Benito, OT Note: Patient will increase L post doc fellowship strength (4lbs) to 60 lbs or more in order to open pill bottles with greater ease x12 weeks Patient will increase L lateral pinch (3.5), L tip pinch (2.5), L 3 jaw pinch (2.5) by 5 lbs each in order for greater ease with typing x12 weeks. 06/18/2019 L post doc fellowship- 20 lbs L lateral pinch- 6.2 Tip [...] on filedocumented in this encounter Care Teams Trailer Mechanic Relationship Specialty Start Date End Date Madhav Mcfadden MD [address] [place] [address] PCP - General Family Medicine 01/16/22 Madhav Mcfadden MD [address] [place] [address] PCP - [employer] Commercial Attributed 07/06/22 07/05/23 Cathleen Allan MD Urology 09/15/16 Pete Hester MD [address] [place] [address] [id number] Surgery, Orthopedic 08/15/19 Pati Armendariz, PhD [address] [place] [address] Clinical Psychologist Psychology 09/16/21 Yasmine Cohen, RN [address] [place] [address] Community Axle Turner 07/21/22 08/26/23 Romero Pryor MD [address] [place] [address] Cardiovascular Disease 02/05/23 Prerna Paulino MD [address] [place] [address] Internal Medicine 07/04/24 Magda [place] MD [address] [place], [place] [phone] Gastroenterology 07/04/24 Ifeoma Hanson MD [address] [place] [address] Endocrinology 07/04/24 Ifeoma Hanson MD [address] [place] [address] Endocrinology 11/26/24 documented as of this encounter
--- OUTSIDE RECORDS SUMMARY | 2025-07-24 20:35 | XMS_ITS | Encounter Summary ---
Author Organization [facility] Address [address] [place] [address] Care Team Providers Care Psychology Tech Name Role Phone Madhav Mcfadden MD Primary Care Provider [phone] Encounter Details Date Type Department Care Team (Latest Contact Info) Description 06/29/2025 Lab Requisition [facility] Laboratory Specimens [address] [place] [address] Kerry Kaba MD [address] [address] Osteomyelitis of vertebra, site unspecified (HC Code) (HC CODE) Social History Tobacco Use Types Packs/Day Years [...] things needed for daily living? No 06/16/2025 [facility] Utilities Answer Date Recorded In the past 12 months has th e electric, gas, oil, or water company threatened to shut off services in your home? No 06/16/2025 Housing Stability Answer Date Recorded What is your living situation today? I have a poncho place to live 06/16/2025 Housing Stability Not [...] Info) Description 08/05/2025 1:40 PM EST [facility] [address] [place] [address] Bal Villavicencio MD [address] [place] [address] 08/11/2025 4:00 PM EST Evaluation [facility] 200 [place], [place] 875021 Kerry Kaba MD 200 [facility] 204 [place] [address] 08/17/2025 1:00 PM EST Office Visit [facility] at [address] [place] [address] Petrona Nesbitt PA [address] [place] [phone] 09/04/2025 10:15 AM EST Follow Up [facility] [address] [place] [address] Carlos Lo MD [address] [place] [phone] 10/20/2025 4:00 PM EDT Telemedicine [facility] 40 [facility] [address] [place] [address] Prerna Paulino MD [address] [phone] 10/29/2025 9:00 AM EDT Office Visit [facility] [address] [place] [address] Petrona Nesbitt PA [address] [place] [phone] 12/10/2025 10:00 AM EDT Office Visit [facility] [address] [place] [address] Petrona Nesbitt PA [address] [place] [phone] 01/21/2026 10:00 AM EDT Office Visit [facility] [address] [place] [address] Petrona Nesbitt PA [address] [place] [phone] 03/04/2026 10:00 AM EDT Office Visit [facility] [address] [place] [address] Petrona Nesbitt PA [address] [place] [phone] 04/15/2026 10:30 AM EDT Office Visit [facility] [address] [place] [address] [place] [address] Ebonie [place] MD 8 [facility] 1 [place] [address] documented as of this encounter Procedures Procedure Name Priority Date/Time Associated Diagnosis Comments MISCELLANEOUS TEST, NONBLOOD ( GH LMW YH) Routine 06/29/2025 11:09 AM EST Osteomyelitis of vertebra, site unspecified (HC Code) (HC CODE) documented in this encounter Results * Miscellaneous test, non blood ( GH LMW Y[facility]) (06/29/2025 11:09 AM EST) Test Code [id number] 07/06/2025 2:44 PM EST [facility] Test Name Broad Range Bacteria PCR & NGS 07/06/2025 2:44 PM EST [facility] Specimen Type Tissue - Vetebra Bone 07/06/2025 2:44 PM EST [facility] Specimen Source Vetebrae 2:44 PM EST [facility] Department Performed In [facility] 07/06/2025 2:44 PM EST [facility] Miscellaneous Test Results See Attached Report 07/06/2025 2:44 PM EST [facility] Vertebrae - Specify 06/29/2025 11:09 AM EST 06/29/2025 11:11 AM EST us Kerry Kaba MD BODY FLUIDS AND STOOLS ORDERA BLES Final Result [facility] [address] [place] [address] documented in this encounter Visit Diagnoses Diagnosis Osteomyelitis of vertebra, site unspecified (HC Code) (HC CODE) documented in this encounter Additional Health Concerns Assessment Noted Time PHQ-9 Depression Total Score: 0 08/18/19 24 6:00 PM EST documented as of this encounter Care Teams Psychology Tech Relationship Specialty Start Date End Date Madhav Mcfadden MD [address] [place] [phone] PCP - General Family Medicine 08/20/23 documented as of this encounter
--- OUTSIDE RECORDS SUMMARY | 2025-07-24 20:35 | XMS_ITS | Encounter Summary ---
Author Organization [facility] Address 20 [place] [address] Care Team Providers Care Ui Developer With Angular Js Name Role Phone Madhav Mcfadden MD Primary Care Provider [phone] Encounter Details Date Type Department Care Team ([facility] st Contact Info) Description 04/04/2024 Scanned Document [facility] 25 [place], [place] [id number] Provider, Historical . Social History Tobacco Use [...] Appointment [facility] Scan [address] [place] [address]. [place] [address] Bal Villavicencio MD Corporate [facility] B-6 [place] [phone] 08/11/2025 4:00 PM EST Evaluation [facility] 200 [place] [address] Kerry Kaba MD 200 [facility] 204 [place] [phone] 08/17/2025 1:00 PM EST Office Visit [facility] at [address] [place] [address] Petrona Nesbitt PA [address] [place] [phone] 09/04/2025 10:15 AM EST [facility] Up [facility] at [address] 6th [place] [address] Carlos Lo MD [address] [place] [phone] 10/20/2025 4:00 PM EDT Telemedicine [facility] 40 [facility] 40 [facility] 1A [place] [address] Prerna Paulino MD [address] [phone] 10/29/2025 9:00 AM EDT Office Visit [facility] [address] [place] [address] Petrona Nesbitt PA [address] [place] [phone] 12/10/2025 10:00 AM EDT Office Visit [facility] [address] [place] [address], [place] [address] Petrona Nesbitt PA [address] [place] [phone] 01/21/2026 10:00 AM EDT Office Visit [facility] [address] [place] [address], [place] [address] Petrona Nesbitt PA [address] [place] [phone] 03/04/2026 10:00 AM EDT Office Visit [facility] [address] [place] [address] Petrona Nesbitt PA [address] [place] [phone] 04/15/2026 10:30 AM EDT Office Visit [facility] [address] [place] [address] Ebonie Crowley MD [address] [place] [phone] documented as of this encounter Procedures Procedure Name Priority Date/Time Associated Diagnosis Comments LAB SCAN Routine 04/03/2024 1:02 PM EDT documented in this encounter Results * Lab Scan (04/03/2024 1:02 PM EDT) us Historical Provider LAB BLOOD ORDERABLES Final R esult documented in this encounter Visit Diagnoses Not on filedocumented in this encounter Additional Health Concerns Assessment Noted Time PHQ-9 Depression Total Score: 0 08/18/19 24 6:00 PM EST documented as of this encounter Care Teams Ui Developer With Angular Js Relationship Specialty Start Date End Date Madhav Mcfadden MD [address] [place] [address] PCP - General Family Medicine 08/20/23 documented as of this encounter
--- OUTSIDE RECORDS SUMMARY | 2025-07-24 20:35 | XMS_ITS | Encounter Summary ---
Author Organization [facility] Address [address] [place] [address] Care Team Providers Care Needlemaker Name Role Phone Cathleen Allan MD Unavailable [phone] Pete Hester MD Unavailable [phone] Pati Armendariz PhD Unavailabl e Madhav Mcfadden MD Primary Care Provider [phone] Yasmine Cohen RN Unavailable Unavaila ble Madhav Mcfadden MD Unavailable [phone] Romero Pryor MD Unavailable [phone] Prerna Paulino MD Unavailable [phone] Magda Davis MD Unavailable [phone] Ifeoma Hanson MD Unavailable [phone] Ifeoma Hanson MD Unavailable [phone] Encounter Details Date Type Department Care Team (Late st Contact Info) Description 03/27/2023 Scanned Document [facility] SCAN Pharmacy, Scan Social [...] place to sleep or slept in a penitentiary (including now)? No 01/24/2023 Sex and Gender [...] Description 2025 8:00 AM EST Office Visit [place] [phone] Madhav Mcfadden MD [address] [place] [address] 09/01/2025 9:20 AM EST Office Visit [id number] [address] [phone] Shmuel Reji Joni, DO [address] [place] [address] 09/29/2025 9:20 AM EST Office Visit [id number] [address] [phone] ShmuelReji Joni, DO [address] [place] [address] 10/27/2025 9:40 AM EDT Office Visit [id number] [address] [phone] Shmuel, Reji Joni, DO [address] [place] [address] 12/01/2025 9:40 AM EDT Office Visit [id number] [address] [phone] Shmuel, Reji Joni, DO [address] [place] [address] 02/03/2026 9:30 AM EDT Telemedicine [facility] Endocrinology [place] 15[address] [place] [phone] Ifeoma Hanson MD [address] [place] [address] documented as of this encounter Goals Goal [...] and he was provided today with a [place] HEP., ongoing OT LTG 2 Occupational Therapy No Maida Benito, OT Note: Patient will decrease Quick Dash score from 79.5 to 10 or less in order to complete functional tasks with greater ease x 12 weeks 06/18/2019 Scored the same today, ongoing OT LTG 3 Occupational Therapy No Maida Benito OT Note: Patient will increase L surfacing machine operator strength (4lbs) to 60 lbs or more in order to open pill bottles with greater ease x12 weeks Patient will increase L lateral pinch (3.5), L tip pinch (2.5), L 3 jaw pinch (2.5) by 5 lbs each in order for greater ease with typing x12 weeks. 06/18/2019 L surfacing machine operator- 20 lbs L lateral pinch- 6.2 [...] on filedocumented in this encounter Care Teams Needlemaker Relationship Specialty Start Date End Date Madhav Mcfadden MD [address] [place] [address] PCP - General Family Medicine 01/16/22 Madhav Mcfadden MD [address] [place] [address] PCP - [employer] Commercial Attributed 07/06/22 07/05/23 Cathleen Allan MD Urology 09/15/16 Pete Hester MD [address] [place] [address] Surgery, Orthopedic 08/15/19 Pati Armendariz, PhD [address] [address] Clinical Psychologist Psychology 09/16/21 Yasmine Cohen, RN [address] [place] [address] [facility] Community Farm Supervisor 07/21/22 08/26/23 Romero Pryor MD [address] [place] [address] Cardiovascular Disease 02/05/23 Prerna Paulino MD [address] [place] [address] Internal Medicine 07/04/24 Magda Davis MD [address] [place] [address] Gastroenterology 07/04/24 Ifeoma Hanson MD [address] [place] [address] Endocrinology 07/04/24 Ifeoma Hanson MD [address] [place] [address] Endocrinology 11/26/24 documented as of this encounter
--- OUTSIDE RECORDS SUMMARY | 2025-07-24 20:35 | XMS_ITS | Encounter Summary ---
Author Organization [facility] Address [address] [place] [address] Care Team Providers Care Risk Adjustment Specialist Name Role Phone Madhav Mcfadden MD Primary Care Provider [phone] Reason for Visit * Reason Onset Date Comments Medication Refill 06/05/2024 Encounter Details Date Type Department Care Team ([facility] st Contact Info) Description 06/05/2024 Refill [facility] [address] [place] [phone] Magda Davis MD 40 [place] [address] Medication Refill Social History Tobacco Use Types Packs/Day Years [...] living situation today? I have a [facility] place to live 08/18/2023 Housing Stability Not [...] Info) Description 08/05/2025 1:40 PM EST Appointment [facility] Scan [address] [place] [address]. [place] [address] Bal Villavicencio MD 15 [facility] B-[address] [place] [address] 08/11/2025 4:00 PM EST Evaluation [facility] 200 [place] [address] Kerry Kaba MD 200 [facility] 204 [place] [phone] 08/17/2025 1:00 PM EST Office Visit [facility] at 8 [facility] 8 [place] [address] Petrona Nesbitt PA [address] [place] [phone] 09/04/2025 10:15 AM EST [facility] at [address] 6th [place] [address] Carlos Lo MD [address] [place] [phone] 10/20/2025 4:00 PM EDT Telemedicine [facility] 40 [facility] 40 [facility] 1A [place] [address] Prerna Paulino MD [address] [phone] 10/29/2025 9:00 AM EDT Office Visit [facility] [address] [place] [address] Petrona Nesbitt PA [address] [place] [phone] 12/10/2025 10:00 AM EDT Office Visit [facility] at [address] [place] [address], [place] [address] Petrona eNsbitt PA [address] [place] [address], [place] [address] 01/21/2026 10:00 AM EDT Office Visit [facility] [address] [place] [address], [place] [address] Petrona Nesbitt PA [address] [place] [phone] 03/04/2026 10:00 AM EDT Office Visit [facility] [address] [place] [address], [place] [address] Petrona Nesbitt PA [address] [place] [phone] 04/15/2026 10:30 AM EDT Office Visit [facility] [address] [place] [address] Ebonie Crowley MD [address] [place] [phone] documented as of this encounter Visit Diagnoses Diagnosis Gastroparesis Gastrointestinal dysmotility Unspecified functional disorder of stomach documented in this encounter Additional Health Concerns Assessment Noted Time PHQ-9 Depression Total Score: 0 08/18/19 24 6:00 PM EST documented as of this encounter Care Teams Risk Adjustment Specialist Relationship Specialty Start Date End Date Madhav Mcfadden MD [address] [place] [address] PCP - General Family Medicine 08/20/23 documented as of this encounter
--- OUTSIDE RECORDS SUMMARY | 2025-07-24 20:35 | XMS_ITS | Encounter Summary ---
Author Organization [facility] Address [address] [place] [address] Care Team Providers Care Emissions Inspector Name Role Phone Madhav Mcfadden MD Primary Care Provider [phone] Reason for Visit * Reason Comments Med Change Request Encounter Details Date Type Department Care Team ([facility] Contact Info) Description 05/25/2024 Refill [facility] [address] [place] [phone] Prerna Paulino MD [address] [phone] Med Change Request Social History Tobacco Use [...] Description 08/05/2025 1:40 PM EST Appointment [facility] CT Scan [address] [place] [address]. [place] [address] Bal Villavicencio MD [address] [facility] [address] [place] [address] 08/11/2025 4:00 PM EST Evaluation [facility] 200 [place] [address] Kerry Kaba MD 200 [facility] 204 [place] [phone] 08/17/2025 1:00 PM EST Office Visit [facility] at 8 [facility] 8 [place] [address] Petrona Nesbitt PA 8 [place] [phone] 09/04/2025 10:15 AM EST [facility] at [address] 6th [place] [address] Carlos Lo MD [address] [place] [phone] 10/20/2025 4:00 PM EDT Telemedicine [facility] 40 [facility] 40 [facility] 1A [place] [address] Prerna Paulino MD [address] [place] [phone] 10/29/2025 9:00 AM EDT Office Visit [facility] [address] [place] [address] Petrona Nesbitt PA [address] [place] [phone] 12/10/2025 10:00 AM EDT Office Visit [facility] at [address] [place] [address], [place] [address] Petrona Nesbitt PA [address] [place] [phone] 01/21/2026 10:00 AM EDT Office Visit [facility] at [address] [place] [address], [place] [address] Petrona Nesbitt PA [address] [place] [phone] 03/04/2026 10:00 AM EDT Office Visit [facility] [address] [place] [address], [place] [address] Petrona Nesbitt PA [address] [place] [phone] 04/15/2026 10:30 AM EDT Office Visit [facility] [address] [place] [address] Ebonie Crowley MD [address] [place] [phone] documented as of this encounter Visit Diagnoses Not on filedocumented in this encounter Additional Health Concerns Assessment Noted Time PHQ-9 Depression Total Score: 0 08/18/19 24 6:00 PM EST documented as of this encounter Care Teams Emissions Inspector Relationship Specialty Start Date End Date Madhav Mcfadden MD [address] [place] [address] PCP - General Family Medicine 08/20/23 documented as of this encounter
--- OUTSIDE RECORDS SUMMARY | 2025-07-24 20:35 | XMS_ITS | Encounter Summary ---
Author Organization [facility] Address [address] [place] [address] Care Team Providers Care Fiction Writer Name Role Phone Cathleen Allan MD Unavailable [phone] Pete Hester MD Unavailable [phone] Pati Armendariz PhD Unavailabl e Madhav Mcfadden MD Primary Care Provider [phone] Yasmine Cohen RN Unavailable Unavaila ble Madhav Mcfadden MD Unavailable [phone] Romero Pryor MD Unavailable [phone] Prerna Paulino MD Unavailable [phone] Magda Davis MD Unavailable [phone] Ifeoma Hanson MD Unavailable [phone] Ifeoma Hanson MD Unavailable [phone] Encounter Details Date Type Department Care Team (Late st Contact Info) Description 12/19/2022 Scanned Document [facility] [address] [place] [address] Provider, MD Adama [address] [place] [address] Social History Tobacco Use Types Packs/Day Years [...] slept in a halfway (including now)? No 11/06/2022 Sex and Gender [...] suspected to have Coronavirus/COVID-19? No / Unsure 12/14/2022 2:47 PM EDT documented as of this encounter Plan of Treatment Upcoming Encounters Date Type Department Care Team (Late st Contact Info) Description 2025 8:00 AM EST Office Visit [address] [phone] Madhav Mcfadden MD [address] [place] [phone] 09/01/2025 9:20 AM EST Office Visit [id number] [address] [phone] Reji Mi, DO [address] [place] [address] 09/29/2025 9:20 AM EST Office Visit [id number] [address] [phone] Reji Mi, DO [address] [place] [address] 10/27/2025 9:40 AM EDT Office Visit [id number] [address] [phone] Reji Mi, DO [address] [place] [address] 12/01/2025 9:40 AM EDT Office Visit [id number] [address] [phone] Reji Mi, DO [address] [place] [address] 02/03/2026 9:30 AM EDT Telemedicine [facility] Endocrinology [place] 1559 [place] [phone] Ifeoma Hanson MD 15[address] [place] [address] documented as of this encounter Goals Goal [...] and he was provided today with a [facility] HEP., ongoing OT LTG 2 Occupational Therapy No Maida Benito, OT Note: Patient will decrease Quick Dash score from 79.5 to 10 or less in order to complete functional tasks with greater ease x 12 weeks 06/18/2019 Scored the same today, ongoing OT LTG 3 Occupational Therapy No Maida Benito, DON Note: Patient will increase L dish maker strength (4lbs) to 60 lbs or more in order to open pill bottles with greater ease x12 weeks Patient will increase L lateral pinch (3.5), L tip pinch (2.5), L 3 jaw pinch (2.5) by 5 lbs each in order for greater ease with typing x12 weeks. 06/18/2019 L dish maker- 20 lbs L lateral pinch- 6.2 Tip [...] on filedocumented in this encounter Care Teams Fiction Writer Relationship Specialty Start Date End Date Madhav Mcfadden MD [address] [place] [address] PCP - General Family Medicine 01/16/22 Madhav Mcfadden MD [address] [place] [address] [facility] Attributed 07/06/22 07/05/23 Cathleen Allan MD Urology 09/15/16 Pete Hester MD [address] [place] [address] Surgery, Orthopedic 08/15/19 Pati Armendariz, PhD [address] [address] Clinical Psychologist Psychology 09/16/21 Yasmine Cohen, RN [address] [place] [address] [facility] Community Lapel Baster 07/21/22 08/26/23 Romero Pryor MD [address] [place] [address] Cardiovascular Disease 02/05/23 Prerna Paulino MD [address] [place] [address] Internal Medicine 07/04/24 Magda Davis MD [address] [place] [address] Gastroenterology 07/04/24 Ifeoma Hanson MD [address] [place], [place] [phone] Endocrinology 07/04/24 Ifeoma Hanson MD [address] [place], [place] [phone] Endocrinology 11/26/24 documented as of this encounter
--- OUTSIDE RECORDS SUMMARY | 2025-07-24 20:35 | XMS_ITS | Encounter Summary ---
Author Organization [facility] Address 20 [place] [address] Care Team Providers Care Manager Field Services Name Role Phone Madhav Mcfadden MD Primary Care Provider [phone] Encounter Details Date Type Department Care Team ([facility] st Contact Info) Description 08/11/2024 Scanned Document [facility] SCHEDULING 25 [place], [place] [phone] Provider, Historical . Social History Tobacco Use [...] Info) Description 08/05/2025 1:40 PM EST [facility]ment [facility] [address] [place] [address]. [place] [address] Bal Villavicencio MD Corporate [facility] B-6 [place] [phone] 08/11/2025 4:00 PM EST Evaluation [facility] 200 [place] [address] Kerry Kaba MD 200 [facility] 204 [place] [phone] 08/17/2025 1:00 PM EST Office Visit [facility] at [address] [place] [address] Petrona Nesbitt PA [address] [place] [phone] 09/04/2025 10:15 AM EST [facility] at [address] 6th [place] [address] Carlos Lo MD [address] [place] [phone] 10/20/2025 4:00 PM EDT Telemedicine [facility] 40 [facility] 40 [facility] 1A [place] [address] Prerna Paulino MD [address] [phone] 10/29/2025 9:00 AM EDT Office Visit [facility] [address] [place] [address] Petrona Nesbitt PA [address] [place] [phone] 12/10/2025 10:00 AM EDT Office Visit [facility] [address] [place] [address], [place] [address] Petrona Nesbitt PA [address] [place] [phone] 01/21/2026 10:00 AM EDT Office Visit [facility] at [address] [place] [address], [place] [address] Petrona Nesbitt PA [address] [place] [phone] 03/04/2026 10:00 AM EDT Office Visit [facility] at [address] [place] [address] Petrona Nesbitt PA [address] [place] [phone] 04/15/2026 10:30 AM EDT Office Visit [facility] at [address] [place] [address] Ebonie [place] MD [address] [place] [phone] documented as of this encounter Procedures Procedure Name Priority Date/Time Associated Diagnosis Comments LAB SCAN Routine 08/08/2024 3:12 PM EST documented in this encounter Results * Lab Scan (08/08/2024 3:12 PM EST) us Historical Provider LAB BLOOD ORDERABLES Final R esult documented in this encounter Visit Diagnoses Not on filedocumented in this encounter Additional Health Concerns Assessment Noted Time PHQ-9 Depression Total Score: 0 08/18/19 6:00 PM EST documented as of this encounter Care Teams Manager Field Services Relationship Specialty Start Date End Date Madhav Mcfadden MD [address] [place] [address] PCP - General Family Medicine 08/20/23 documented as of this encounter
--- OUTSIDE RECORDS SUMMARY | 2025-07-24 20:35 | XMS_ITS | Encounter Summary ---
Author Organization [facility] Address [address] [place] [address] Care Team Providers Care Health Information Internship Name Role Phone Madhav Mcfadden MD Primary Care Provider [phone] Reason for Visit * Reason Comments Medication Refill Encounter Details Date Type Department Care Team ([facility] st Contact Info) Description 05/04/2024 Refill [facility] - Gastroenterology 330 [place], [place] [address] Hieu Perez MD [address] [address] Medication Refill Social History Tobacco Use Types [...] Description 08/05/2025 1:40 PM EST Appointment [facility] CT Scan [address] [place] [address]. [place] [address] Bal Villavicencio MD [address] [facility] [address] [place] [address] 08/11/2025 4:00 PM EST Evaluation [facility] 200 [place] [address] Kerry Kaba MD 200 [facility] 204 [place] [address] 08/17/2025 1:00 PM EST Office Visit [facility] Diseases at 8 [facility] 8 [place] [address] Petrona Nesbitt PA 8 [place] [phone] 09/04/2025 10:15 AM EST [facility] at [address] 6[address] [place] [address] Carlso Lo MD [address] [place] [phone] 10/20/2025 4:00 PM EDT Telemedicine [facility] at [address] [place] [address] 40 [facility] 1A [place] [address] Prerna Paulino MD [address] [phone] 10/29/2025 9:00 AM EDT Office Visit [facility] at [address] [place] [address] Petrona Nesbitt PA [address] [place] [phone] 12/10/2025 10:00 AM EDT Office Visit [facility] [address] [place] [address], [place] [address] Petrona Nesbitt PA [address] [place] [phone] 01/21/2026 10:00 AM EDT Office Visit [facility] [address] [place] [address], [place] [address] Petrona Nesbitt PA [address] [place] [phone] 03/04/2026 10:00 AM EDT Office Visit [facility] [address] [place] [address], [place] [address] Petrona Nesbitt PA [address] [place] [phone] 04/15/2026 10:30 AM EDT Office Visit [facility] [address] [place] [address], [place] [address] Ebonie [place] MD [address] [place] [phone] documented as of this encounter Visit Diagnoses Not on filedocumented in this encounter Additional Health Concerns Assessment Noted Time PHQ-9 Depression Total Score: 0 08/18/19 24 6:00 PM EST documented as of this encounter Care Teams Health Information Internship Relationship Specialty Start Date End Date Madhav Mcfadden MD [address] [place] [address] PCP - General Family Medicine 08/20/23 documented as of this encounter
--- OUTSIDE RECORDS SUMMARY | 2025-07-24 20:36 | XMS_ITS | Encounter Summary ---
Author Organization Formerly [facility] Address [address] [place] [address] Care Team Providers Care In Processing Instructor Name Role Phone Jacqueline Kay MD Primary Care Provider Unava ilable Jacqueline Kay MD Primary Care Provider Unava ilable Jacqueline Kay MD Unavailable Unavailable Jacqueline Kay MD Unavailable Unavailable Stephanie Darnell I UPHOLSTERER HELPER Unavailable [phone] Stephanie Darnell I UPHOLSTERER HELPER Unavailable [phone] Cathleen Allan MD Unavailable [phone] Pete Hester MD Unavailable [phone] Pati Armendariz PhD Unavailabl e Madhav Mcfadden MD Primary Care Provider [phone] Jacqueline Kay MD Unavailable Unavailable Yasmine Cohen RN Unavailable Unavaila ble Bre Almaguer RN Unavailable [phone] Madhav Mcfadden MD Unavailable [phone] Romero Pryor MD Unavailable [phone] Prerna Paulino MD Unavailable [phone] Magda Davis MD Unavailable [phone] Ifeoma Hanson MD Unavailable Ifeoma Hanson MD Unavailable [phone] Encounter Details Date Type Department Care Team (Late st Contact Info) Description 05/09/2020 Scanned Document [facility] 31 [facility] [address] [place] [phone] Bal Dill MD [address] [place] [facility] [address] [place], [place] [id number] Social History Tobacco Use Types Packs/Day Years [...] have Coronavirus / COVID-19? No / Unsure 05/06/2020 5:11 PM EDT documented as of this encounter Plan of Treatment Upcoming Encounters Date Type Department Care Team (Late Contact Info) Description 2025 8:00 AM EST Office Visit [address] [phone] Madhav Mcfadden MD [address] [place] [address] 09/01/2025 9:20 AM EST Office Visit [id number] [address] [phone] Reji Mi DO [address] [phone] 09/29/2025 9:20 AM EST Office Visit [id number] [address] [place] [phone] ShmuelRejiil, DO [address] [address] 10/27/2025 9:40 AM EDT Office Visit [id number] [address] [place] [address] ShmuelReji Joni, DO [address] [place] [address], [place] [address] 12/01/2025 9:40 AM EDT Office Visit [id number] [address] [place] [phone] ShmuelReji Joni, [address] [address] 02/03/2026 9:30 AM EDT Telemedicine [facility] Endocrinology [address] [phone] Ifeoma Hanson MD [address] [place] [address] documented as of this encounter Goals Goal [...] and he was provided today with a [facility] ongoing OT LTG 2 Occupational Therapy No Maida Benito, OT Note: Patient will decrease Quick Dash score from 79.5 to 10 or less in order to complete functional tasks with greater ease x 12 weeks 06/18/2019 Scored the same today, ongoing OT LTG 3 Occupational Therapy No Maida Benito, OT Note: Patient will increase L geography professor strength (4lbs) to 60 lbs or more in order to open pill bottles with greater ease x12 weeks Patient will increase L lateral pinch (3.5), L tip pinch (2.5), L 3 jaw pinch (2.5) by 5 lbs each in order for greater ease with typing x12 weeks. 06/18/2019 L geography professor- 20 lbs L lateral pinch- 6.2 Tip [...] documented as of this encounter Care Teams In Processing Instructor Relationship Specialty Start Date End Date Jacqueline Kay MD PCP - General Family Medicine 11/01/17 04/28/21 Jacqueline Kay MD PCP - General Family Medicine 04/29/21 01/15/22 Jacqueline Kay MD PCP - [employer] Attributed 06/06/20 07/05/20 Stephanie Darnell APRN [address] [phone] PCP - [employer] Attributed 07/06/20 10/03/20 Stephanie Darnell I UPHOLSTERER HELPER [address] [phone] PCP - [employer] Attributed 05/06/21 11/03/21 Madhav Mcfadden MD [address] [place], [place] [phone] PCP - General Family Medicine 01/16/22 Jacqueline Kay MD PCP - [employer] Attributed 11/04/21 07/05/22 Madhav Mcfadden MD [address] [place], [place] [address] PCP - [employer] Attributed 07/06/22 07/05/23 Jacqueline Kay MD Family Medicine 04/29/21 03/30/22 Cathleen Allan MD [address] [place] [address] 1022 [place] [phone] Urology 09/15/16 Pete Hester MD [address] [address] Surgery, Orthopedic 08/15/19 Pati Armendariz, PhD [address] [place] [address] 435 [place] [address] Clinical Psychologist Psychology 09/16/21 Yasmine Cohen, RN [address] [place] [address] ICP Community Buggy Driver 07/21/22 08/26/23 Bre Almaguer, RN [address] [address] [facility] Community Buggy Driver 10/03/22 11/13/22 Romero Pryor MD [address] [place] [address] Cardiovascular Disease 02/05/23 Prerna Paulino MD [address] [place] [address] Internal Medicine 07/04/24 Magda Davis MD [address] [place] [address] Gastroenterology 07/04/24 Ifeoma Hanson MD [address] [place] [address] Endocrinology 07/04/24 Ifeoma Hanson MD [address] [place] [address] Endocrinology 11/26/24 documented as of this encounter
--- OUTSIDE RECORDS SUMMARY | 2025-07-24 20:36 | XMS_ITS | Encounter Summary ---
Author Organization [facility] Address [address] [place] [address] Care Team Providers Care Ladle Handler Name Role Phone Madhav Mcfadden MD Primary Care Provider Encounter Details Date Type Department Care Team ([facility] st Contact Info) Description 06/23/2025 Scanned Document [facility] Specimens [address] [place], [place] [address] System, Provider Not In Social History Tobacco Use Types Packs/Day Years [...] things needed for daily living? No 06/16/2025 [facility] Utilities Answer Date Recorded In the past 12 months has th e electric, gas, oil, or water company threatened to shut off services in your home? No 06/16/2025 Housing Stability Answer Date Recorded What is your living situation today? I have a [facility] place to live 06/16/2025 Housing Stability Not [...] Info) Description 08/05/2025 1:40 PM EST [facility] Scan [address] [place] [address] Bal Villavicencio MD [address] [place] [address] 08/11/2025 4:00 PM EST Evaluation [facility] 200 [place], [place] 16[address] Kerry Kaba MD 200 [facility] 204 [place] [phone] 08/17/2025 1:00 PM EST Office Visit [facility] at [address] [place] [address] Petrona Nesbitt PA [address] [place] [phone] 09/04/2025 10:15 AM EST [facility] at [address] [place] [address] Carlos Lo MD [address] [place] [phone] 10/20/2025 4:00 PM EDT Telemedicine [facility] 40 [facility] 40 [facility] 1A [place] [address] Prerna Paulino MD 40 [facility] 1[address] [place] [phone] 10/29/2025 9:00 AM EDT Office Visit [facility] [address] [place] [address], [place] [address] Petrona Nesbitt PA [address] [place] [phone] 12/10/2025 10:00 AM EDT Office Visit [facility] [address] [place] [address], [place] [address] Petrona Nesbitt PA [address] [place] [phone] 01/21/2026 10:00 AM EDT Office Visit [facility] [address] [place] [address], [place] [address] Petrona Nesbitt PA [address] [place] [address], [place] [phone] 03/04/2026 10:00 AM EDT Office Visit [facility] [address] [place] [address], [place] [address] Petrona Nesbitt PA [address] [place] [phone] 04/15/2026 10:30 AM EDT Office Visit [facility] [address] [place] [address], [place] [address] Ebonie Crowley MD [address] [place] [phone] documented as of this encounter Procedures Procedure Name Priority Date/Time Associated Diagnosis Comments SURGICAL CASE (YH) Routine 06/23/2025 9: 39 AM EST documented in this encounter Results * Surgical case (YH) (06/23/2025 9:39 AM EST) Surgical Case SURGICAL PATHOLOGY REPORT Patient: PEGGY GONG MR #: [id number] Submitted by: TOREY ALEJANDRA FINAL DIAGNOSIS BONE, T3 VERTEBRA, BIOPSY: - [...] in 1 cassette following decalcification with Immunocal. [facility] SURGICAL PATHOLOGY 06/23/2025 9:39 AM EST Comment:T3 VERTEBRA FROM [facility] RO us Torey Alejandra MD PATHOLOGY/CYTOLOGY ORDERABLES nal Result [facility] SURGICAL PATHOLOGY Department of Pathology [address] [place] [address] [phone] [place], [place] [phone] documented in this encounter Visit Diagnoses Not on filedocumented in this encounter Additional Health Concerns Assessment Noted Time PHQ-9 Depression Total Score: 0 08/18/19 24 6:00 PM EST documented as of this encounter Care Teams Ladle Handler Relationship Specialty Start Date End Date Madhav Mcfadden MD [address] [place] [phone] PCP - General Family Medicine 08/20/23 documented as of this encounter
--- OUTSIDE RECORDS SUMMARY | 2025-07-24 20:36 | XMS_ITS | Encounter Summary ---
Author Organization [facility] Address [address] [place] [address] Care Team Providers Care Obiee Lead Developer Name Role Phone Madhav Mcfadden MD Primary Care Provider Encounter Details Date Type Department Care Team ([facility] st Contact Info) Description 03/09/2025 Scanned Document [facility] CENTER SCHEDULING 25 [place], [place] [phone] Provider, Historical . Social History Tobacco Use [...] Answer Date Recorded PHQ-2 Total Score 4 02/19/2025 Hunger Vital Sign Answer Date Recorded Within [...] hurting or threatening you in anyway? no 03/04/2025 Physical Indicators of Abuse No evidence of phys ical abuse 03/04/2025 Sex and Gender Information Value Date Recorded Sex Assigned at Male 06/16/2025 10:30 AM EST Legal Sex Male 8:50 PM EST Gender Identity Male 06/16/2025 10:30 AM EST Sexual Orientation Not on file documented as of this encounter Plan of Treatment Upcoming Encounters Date Type Department Care Team (Late st Contact Info) Description 08/05/2025 1:40 PM EST [facility]ment [facility] [address] [place] [address]. [place] [address] Bal Villavicencio MD Corporate [facility] [address] [place] [phone] 08/11/2025 4:00 PM EST Evaluation [facility] 200 [place] [address] Kerry Kaba MD 200 [facility] 204 [place] [phone] 08/17/2025 1:00 PM EST Office Visit [facility] at [address] [place] [address] Petrona Nesbitt PA [address] [place] [phone] 09/04/2025 10:15 AM EST [facility] at [address] 6[address] [place] [address] Carlos Lo MD [address] [place] [phone] 10/20/2025 4:00 PM EDT Telemedicine [facility] 40 [facility] 40 [facility] 1A [place] [address] Prerna Paulino MD [address] [phone] 10/29/2025 9:00 AM EDT Office Visit [facility] [address] [place] [address] Petrona Nesbitt PA [address] [place] [phone] 12/10/2025 10:00 AM EDT Office Visit [facility] [address] [place] [address], [place] [address] Petrona Nesbitt PA [address] [place] [phone] 01/21/2026 10:00 AM EDT Office Visit [facility] [address] [place] [address], [place] [address] Petrona Nesbitt PA [address] [place] [phone] 03/04/2026 10:00 AM EDT Office Visit [facility] [address] [place] [address] Petrona Nesbitt PA [address] [place] [phone] 04/15/2026 10:30 AM EDT Office Visit [facility] [address] [place] [address] Ebonie Crowley MD [address] [place] [phone] documented as of this encounter Procedures Procedure Name Priority Date/Time Associated Diagnosis Comments LAB SCAN Routine 03/09/2025 9:15 PM EDT documented in this encounter Results * Lab Scan (03/09/2025 9:15 PM EDT) us Historical Provider LAB BLOOD ORDERABLES Final R esult documented in this encounter Visit Diagnoses Not on filedocumented in this encounter Additional Health Concerns Assessment Noted Time PHQ-9 Depression Total Score: 0 08/18/19 24 6:00 PM EST documented as of this encounter Care Teams Obiee Lead Developer Relationship Specialty Start Date End Date Madhav Mcfadden MD [address] [place] [address] PCP - General Family Medicine 08/20/23 documented as of this encounter
--- OUTSIDE RECORDS SUMMARY | 2025-07-24 20:36 | XMS_ITS | Encounter Summary ---
Author Organization [facility] Address [address] [place] [address] Care Team Providers Care Head And Neck Surgeon Name Role Phone Madhav Mcfadden MD Primary Care Provider [phone] Encounter Details Date Type Department Care Team ([facility] st Contact Info) Description 04/13/2025 Telephone [facility] [address] [place] [address] Prerna Paulino MD [address] [place] [phone] Social History Tobacco Use Types Packs/Day [...] Answer Date Recorded PHQ-2 Total Score 0 04/14/2025 Hunger Vital Sign Answer Date Recorded Within [...] encounter Miscellaneous Notes * Telephone Encounter - Glenny Ye - 04/14/2025 9:22 AM EDT Copied from [facility] #[id number]. Topic: General Message - [facility] >> Apr 14, 2025 9:20 AM Glenny Diaz wrote: [facility] MESSAGE Time of call: 9:20 AM Caller: Hussain Caller's relationship to patient: n/a Calling from (pharmacy, hospital, agency, etc.): [facility] Specialist you are calling for: n/a Reason for call: Hussain calling to request approval for patient's TPN changes which needs to be compounded by 11:00 this morning. Per Hussain request was also sent yesterday. If not feeling well, what are symptoms: n/a If having symptoms, how long have the symptoms been present: n/a Does caller request to speak to someone urgently? no Best telephone number for callback: [phone] fax number is [phone] Best time to return call: Anytime Permission to leave message: yes Glenny Ye [facility] Center Senior Oracle Database Administrator * Telephone Encounter - Edis Gray RN - 04/13/2025 12:07 PM EDT Called Pati and left a detailed VM - Dr. Paulino will be in the office tomorrow and can sign. * Telephone Encounter - Tati Haile - 04/13/2025 9:23 AM EDT Copied from [facility] #[id number]. Topic: General Inquiry - General Inquiry >> Apr 13, 2025 9:08 AM Tati Lebron wrote: [facility] called regarding orders. Per caller need orders signed Best [phone] documented in this encounter Plan of Treatment Upcoming Encounters Date Type Department Care Team (Late st Contact Info) Description 08/05/2025 1:40 PM EST [facility] [address] [place] [address]. [place] [address] Bal Villavicencio MD [address] [facility] [address] [place] [phone] 08/11/2025 4:00 PM EST Evaluation [facility] 200 [place], [place] [address] Kerry Kaba MD 200 [facility] 204 [place] [phone] 08/17/2025 1:00 PM EST Office Visit [facility] [address] [place] [phone] Petrona Nesbitt PA [address] [place] [phone] 09/04/2025 10:15 AM EST Follow Up [facility] [address] 6[address] [place] [address] Carlos Lo MD [address] [place] [phone] 10/20/2025 4:00 PM EDT Telemedicine [facility] 40 [facility] 40 [facility] 1A [place] [address] Prerna Paulino MD 40 [facility] 1A [place] [phone] 10/29/2025 9:00 AM EDT Office Visit [facility] at [address] [place] [address], [place] [address] Petrona Nesbitt PA [address] [place] [phone] 12/10/2025 10:00 AM EDT Office Visit [facility] [address] [place] [address], [place] [address] Petrona Nesbitt PA [address] [place] [phone] 01/21/2026 10:00 AM EDT Office Visit [facility] [address] [place] [address], [place] [address] Petrona Nesbitt PA [address] [place] [phone] 03/04/2026 10:00 AM EDT Office Visit [facility] at [address] [place] [address] Petrona Nesbitt PA [address] [place] [phone] 04/15/2026 10:30 AM EDT Office Visit [facility] [address] [place] [address], [place] [address] Ebonie Crowley MD [address] [place] [phone] documented as of this encounter Visit Diagnoses Not on filedocumented in this encounter Additional Health Concerns Assessment Noted Time PHQ-9 Depression Total Score: 0 08/18/19 6:00 PM EST documented as of this encounter Care Teams Head And Neck Surgeon Relationship Specialty Start Date End Date Madhav Mcfadden MD [address] [place] [address] PCP - General Family Medicine 08/20/23 documented as of this encounter
--- OUTSIDE RECORDS SUMMARY | 2025-07-24 20:36 | XMS_ITS | Encounter Summary ---
Author Organization [facility] Address [address] [place] [address] Care Team Providers Care Accuracy Expert Name Role Phone Madhav Mcfadden MD Primary Care Provider [phone] Encounter Details Date Type Department Care Team ([facility] st Contact Info) Description 06/16/2025 Scanned Document [facility] SCHEDULING 25 [place], [place] [phone] Provider, Historical . Social History Tobacco Use [...] things needed for daily living? No 06/16/2025 [facility] Utilities Answer Date Recorded In the past [...] Info) Description 08/05/2025 1:40 PM EST Appointment [facility] Scan [address] [place] [address]. [place] [address] Bal Villavicencio MD 15 [address] [facility] [address] [place] [address] 08/11/2025 4:00 PM EST Evaluation [facility] 200 [place], [place] [address] Kerry Kaba MD 200 [facility] 204 [place] [phone] 08/17/2025 1:00 PM EST Office Visit [facility] at [address] [place] [phone] Petrona Nesbitt PA [address] [place] [phone] 09/04/2025 10:15 AM EST [facility] at [address] [place] [address] Carlos Lo MD [address] [place] [phone] 10/20/2025 4:00 PM EDT Telemedicine [facility] at 40 [facility] 40 [facility] 1A [place] [address] Prerna Paulino MD [address] [phone] 10/29/2025 9:00 AM EDT Office Visit [facility] at [address] [place] [address] Petrona Nesbitt PA [address] [place] [phone] 12/10/2025 10:00 AM EDT Office Visit [facility] at [address] [place] [address] Petrona Nesbitt PA [address] [place] [phone] 01/21/2026 10:00 AM EDT Office Visit [facility] at [address] [place] [address], [place] [address] Petrona Nesbitt PA [address] [place] [phone] 03/04/2026 10:00 AM EDT Office Visit [facility] [address] [place] [address], [place] [address] Petrona Nesbitt PA [address] [place] [phone] 04/15/2026 10:30 AM EDT Office Visit [facility] [address] [place] [address], [place] [address] Ebonie Crowley MD [address] [place] [phone] documented as of this encounter Procedures Procedure Name Priority Date/Time Associated Diagnosis Comments LAB SCAN Routine 06/11/2025 10:25 AM EST documented in this encounter Results * Lab Scan (06/11/2025 10:25 AM EST) us Historical Provider LAB BLOOD ORDERABLES Final R esult documented in this encounter Visit Diagnoses Not on filedocumented in this encounter Additional Health Concerns Assessment Noted Time PHQ-9 Depression Total Score: 0 08/18/19 24 6:00 PM EST documented as of this encounter Care Teams Accuracy Expert Relationship Specialty Start Date End Date Madhav Mcfadden MD [address] [place] [address] PCP - General Family Medicine 08/20/23 documented as of this encounter
--- OUTSIDE RECORDS SUMMARY | 2025-07-24 20:36 | XMS_ITS | Encounter Summary ---
Author Organization [facility] Address [address] [place] [address] Care Team Providers Care Pelts Skinner Name Role Phone Jacqueline Kay MD Primary Care Provider Unava ilable Jacqueline Kay MD Primary Care Provider Unava ilable Jacqueline Kay MD Unavailable Unavailable Jacqueline Kay MD Unavailable Unavailable Stephanie Darnell I WIRELESS CONSULTANT Unavailable [phone] Stephanie Darnell I WIRELESS CONSULTANT Unavailable [phone] Cathleen Allan MD Unavailable [phone] Pete Hester MD Unavailable [phone] Pati Armendariz PhD Unavailabl e Madhav Mcfadden MD Primary Care Provider [phone] Jacqueline Kay MD Unavailable Unavailable Yasmine Cohen RN Unavailable Unavaila ble Bre Almaguer RN Unavailable [phone] Madhav Mcfadden MD Unavailable [phone] Romero Pryor MD Unavailable [phone] Prerna Paulino MD Unavailable [phone] Magda Davis MD Unavailable [phone] Ifeoma Hanson MD Unavailable Ifeoma Hanson MD Unavailable Encounter Details Date Type Department Care Team (Late st Contact Info) Description 03/17/2020 Scanned Document [facility] [place] [facility]eron [address] [place] [address] [place] [address] Provider, Generic Social History Tobacco Use Types [...] have Coronavirus / COVID-19? No / Unsure 03/11/2020 4:12 PM EDT documented as of this encounter Plan of Treatment Upcoming Encounters Date Type Department Care Team (Late st Contact Info) Description 2025 8:00 AM EST Office Visit [address] [address] Madhav Mcfadden MD [address] [place] [address] 09/01/2025 9:20 AM EST Office Visit [id number] [address] [address] Reji Mi DO [address] [place] [phone] 09/29/2025 9:20 AM EST Office Visit [id number] [address] [address] Reji Mi DO [address], [place] [phone] 10/27/2025 9:40 AM EDT Office Visit [id number] [address] [place] [phone] Reji iM, DO [address], [place] [phone] 12/01/2025 9:40 AM EDT Office Visit [id number] [address] [place] [phone] Reji Mi, DO [address], [place] [phone] 02/03/2026 9:30 AM EDT Telemedicine [facility] [place] Endocrinology [address] [phone] Ifeoma Hanson MD [address] [place] [phone] documented as of this encounter Goals Goal [...] provided today with a [facility] ongoing OT LTG 2 Occupational Therapy No Maida Benito, OT Note: Patient will decrease Quick Dash score from 79.5 to 10 or less in order to complete functional tasks with greater ease x 12 weeks 06/18/2019 Scored the same today, ongoing OT LTG 3 Occupational Therapy No Maida Benito, OT Note: Patient will increase L video tape editor strength (4lbs) to 60 lbs or more in order to open pill bottles with greater ease x12 weeks Patient will increase L lateral pinch (3.5), L tip pinch (2.5), L 3 jaw pinch (2.5) by 5 lbs each in order for greater ease with typing x12 weeks. 06/18/2019 L video tape editor- 20 lbs L lateral pinch- 6.2 Tip [...] documented as of this encounter Care Teams Pelts Skinner Relationship Specialty Start Date End Date Jacqueline Kay MD PCP - General Family Medicine 11/01/17 04/28/21 Jacqueline Kay MD PCP - General Family Medicine 04/29/21 01/15/22 Jacqueline Kay MD PCP - [employer] Attributed 06/06/20 07/05/20 Stephanie Darnell I, WIRELESS CONSULTANT [address] [address] PCP - [employer] Attributed 07/06/20 10/03/20 Stephanie Darnell I, WIRELESS CONSULTANT [address] [address] PCP - [employer] Attributed 05/06/21 11/03/21 Madhav Mcfadden MD [address] [place], [place] [address] PCP - General Family Medicine 01/16/22 Jacqueline Kay MD PCP - [employer] Attributed 11/04/21 07/05/22 Madhav Mcfadden MD [address] [place] [address] PCP - [employer] Attributed 07/06/22 07/05/23 Jacqueline Kay MD Family Medicine 04/29/21 03/30/22 Cathleen Allan MD [address] [phone] Urology 09/15/16 Pete Hester MD [address] [place] [phone] Surgery, Orthopedic 08/15/19 Pati Armendariz, PhD [address] [place] [address] Clinical Psychologist Psychology 09/16/21 Yasmine Cohen, RN [address] Community Project Manager Interior Design 07/21/22 08/26/23 Bre Almaguer, RN [address] [address] [facility] Community Project Manager Interior Design 10/03/22 11/13/22 Romero Pryor MD [address] [place] [address] Cardiovascular Disease 02/05/23 Prerna Paulino MD [address] [place] [address] Internal Medicine 07/04/24 Magda Davis MD [address] [place] [address] Gastroenterology 07/04/24 Ifeoma Hanson MD [address] [place], [place] [phone] Endocrinology 07/04/24 Ifeoma Hanson MD [address] [place] [address] Endocrinology 11/26/24 documented as of this encounter
--- OUTSIDE RECORDS SUMMARY | 2025-07-24 20:36 | XMS_ITS | Encounter Summary ---
Author Organization [facility] Address [address] [place] [phone] Care Team Providers Care Compressor Mechanic Name Role Phone Madhav Mcfadden MD Primary Care Provider [phone] Reason for Visit * Reason Comments Medication Refill Encounter Details Date Type Department Care Team ([facility] Contact Info) Description 07/24/2025 Refill [facility] [address] [place] [address] [phone] Magda Davis MD [address] [place] [address] Medication Refill Social History Tobacco [...] things needed for daily living? No 06/16/2025 [facility] Utilities Answer Date Recorded In the past [...] Info) Description 08/05/2025 1:40 PM EST [facility] [address] [place] [address]. [place] [address] Bal Villavicencio MD [address] [place] [address] 08/11/2025 4:00 PM EST Evaluation [facility] [address] [place] [address] Kerry Kaba MD [address] [facility] [address] [place] [phone] 08/17/2025 1:00 PM EST Office Visit [facility] at [address] [place] [phone] Petrona Nesbitt PA [address] [place] [phone] 09/04/2025 10:15 AM EST [facility] [address] [place] [address] Carlos Lo MD [address] [place] [phone] 10/20/2025 4:00 PM EDT Telemedicine [facility] [address] [facility] [address] [facility] [address] [place] [address] Prerna Paulino MD [address] [phone] 10/29/2025 9:00 AM EDT Office Visit [facility] [address] [place] [phone] Petrona Nesbitt PA [address] [place] [phone] 12/10/2025 10:00 AM EDT Office Visit [facility] [address] [place] [address] Petrona Nesbitt PA [address] [place] [phone] 01/21/2026 10:00 AM EDT Office Visit [facility] [address] [place] [address] Petrona Nesbitt PA [address] [place] [phone] 03/04/2026 10:00 AM EDT Office Visit [facility] [address] [place] [phone] Petrona Nesbitt PA [address] [place] [phone] 04/15/2026 10:30 AM EDT Office Visit [facility] [address] [place] [phone] Ebonie Crowley MD [address] [phone] documented as of this encounter Visit Diagnoses Diagnosis Gastroparesis Gastrojejunostomy tube status (HC Code) (HC CODE) Intestinal bypass or anastomosis status Intractable vomiting with nausea Gastrointestinal dysmotility Unspecified functional disorder of stomach Dysautonomia (HC Code) (HC CODE) Unspecified disorder of autonomic nervous system documented in this encounter Additional Health Concerns Assessment Noted Time PHQ-9 Depression Total Score: 0 08/18/19 24 6:00 PM EST documented as of this encounter Care Teams Compressor Mechanic Relationship Specialty Start Date End Date Madhav Mcfadden MD [address] [place] [address] PCP - General Family Medicine 08/20/23 documented as of this encounter
--- OUTSIDE RECORDS SUMMARY | 2025-07-24 20:36 | XMS_ITS ---
Author Name [facility] Organization Unknown Results Test Name/Text Value Interpretation Date Range Source BKR TEST NAME Broad Range Bacteria PCR \T\ NGS 07/06/2025 [facility]PART[facility] PERFORMED IN med 07/06/2025 [facility] SPECIMEN TYPE Tissue - [facility] Bone 07/06/2025 [facility] MISCELLANEOUS TEST RESULTS See Attached Report 07/06/2025 [facility] SPECIMEN SOURCE [facility]e 07/06/2025 [facility] TEST CODE BRBPCR 07/06/[address] [facility] [address] Iron Satn MFr SerPl 32.0 % 06/26/2025 15 - 50 [facility] Iron SerPl-mCnc 103.0 ug/dL 06/26/2025 59 - 158 [facility] TIBC SerPl-mCnc 322.0 ug/dL 06/26/2025 250 - 450 [facility] Ferritin SerPl-mCnc 179.0 ng/mL 06/26/2025 30 - 40 0 [facility] Anion Gap SerPl Calculated.3Ions-sCnc 11.0 06/26/2025 7 - [address] [facility] Calcium SerPl-mCnc 10.1 mg/dL 06/26/2025 8.8 - 10. 2 [facility] GFR SerPlBld Creatinine-bsd fmla CKD-EPI >60.0 mL/min/1.73m2 06/26/2025 - [facility] ALP SerPl-cCnc 65.0 U/L 06/26/2025 9 - 122 [facility] BUN/Creat SerPl 20.0 06/26/2025 8 - 23 [facility] BUN SerPl-mCnc 18.0 mg/dL 06/26/2025 6 - 20 [facility] HCO3 SerPl-sCnc 25.0 mmol/L 06/26/2025 20 - 30 [facility] Albumin SerPl BCG-mCnc 4.8 g/dL 06/26/2025 3.6 - 5.1 [facility] Chloride SerPl-sCnc 103.0 mmol/L 06/26/2025 98 - 1 07 [facility] BKR CREATININE DELTA -0.1 06/26/2025 - [facility] AST/ALT SerPl-cRto 1.3 06/26/2025 - [facility] ALT SerPl w/o P-5'-P-cCnc 14.0 U/L 06/26/2025 9 - 59 [facility] Potassium SerPl-sCnc 4.6 mmol/L 06/26/2025 3.3 - 5 .3 [facility] Sodium SerPl-sCnc 139.0 mmol/L 06/26/2025 136 - 14 4 [facility] Prot SerPl-mCnc 8.0 g/dL 06/26/2025 5.9 - 8.3 [facility] Creat SerPl-mCnc 0.9 mg/dL 06/26/2025 0.4 - 1.3 [facility] AST SerPl w P-5'-P-cCnc 18.0 U/L 06/26/2025 10 - 35 [facility] Globulin Plas-mCnc 3.2 g/dL 06/26/2025 2 - 3.9 [facility] Albumin/Glob SerPl 1.5 06/26/2025 1 - 2.2 [facility] Glucose SerPl-mCnc 98.0 mg/dL 06/26/2025 70 - 100 [facility] Bilirub SerPl-mCnc 0.5 mg/dL 06/26/2025 - [facility] Phosphate SerPl-mCnc 3.1 mg/dL 06/26/2025 2.2 - 4. 5 [facility] Trigl SerPl-mCnc 132.0 mg/dL 06/26/2025 - [facility] Magnesium SerPl-mCnc 2.1 mg/dL 06/26/2025 1.7 - 2. 4 [facility] Prealb SerPl Neph-mCnc 28.0 mg/dL 06/26/2025 20 - 40 [facility] Prothrombin time 11.1 seconds 06/26/2025 9 - 12 [facility] INR PPP 1.05 06/26/2025 0.9 - 1.1 [facility] aPTT PPP 29.8 seconds 06/26/2025 23 - [address] [facility] Hct VFr Bld Auto 42.8 % 06/26/2025 38.5 - 50 [facility] RBC # Bld Auto 5.56 M/uL 06/26/2025 4 - 6 [facility] Neutrophils # Bld Auto 4.3 x 1000/uL 06/26/2025 2 - 7.6 [facility] WBC # Bld Auto 7.1 x1000/uL 06/26/2025 4 - 11 [facility] PMV Bld Auto 8.7 fL 06/26/2025 8 - [address] [facility] RBC Auto 77.0 fL Below low normal 06/26/2025 80 - 100 [facility] Hgb Bld-mCnc 13.4 g/dL 06/26/2025 13.2 - 17.1 [facility] MCHC RBC Auto-EntMCnc 31.3 g/dL 06/26/2025 31 - 36 [facility] RDW RBC Auto 17.1 % Above high normal 06/26/2025 11 - 15 [facility] MCH RBC Qn Auto 24.1 pg Below low normal 06/26/2025 27 - 3 3 [facility] Platelet # Bld Auto 309.0 x1000/uL 06/26/2025 150 - 420 [facility] Ca-I adj pH7.4 BldV ISE-mCnc 5.23 mg/dL Above high normal 06/26/2025 4.6 - 5.08 [facility] Anion Gap SerPl Calculated.3Ions-sCnc 7.0 06/25/2025 7 - [address] [facility] Glucose SerPl-mCnc 90.0 mg/dL 06/25/2025 70 - 100 [facility] Chloride SerPl-sCnc 106.0 mmol/L 06/25/2025 98 - 1 07 [facility] BUN/Creat SerPl 16.0 06/25/2025 8 - 23 [facility] BKR CREATININE DELTA 0.0 06/25/2025 - [facility] Potassium SerPl-sCnc 4.1 mmol/L 06/25/2025 3.3 - 5 .3 [facility] GFR SerPlBld Creatinine-bsd fmla CKD-EPI >60.0 mL/min/1.73m2 06/25/2025 - [facility] HCO3 SerPl-sCnc 28.0 mmol/L 06/25/2025 20 - 30 [facility] Sodium SerPl-sCnc 141.0 mmol/L 06/25/2025 136 - 14 4 [facility] Creat SerPl-mCnc 1.0 mg/dL 06/25/2025 0.4 - 1.3 [facility] Calcium SerPl-mCnc 9.0 mg/dL 06/25/2025 8.8 - 10.2 [facility] BUN SerPl-mCnc 16.0 mg/dL 06/25/2025 6 - 20 [facility] Phosphate SerPl-mCnc 2.8 mg/dL 06/25/2025 2.2 - 4. 5 [facility] Magnesium SerPl-mCnc 2.1 mg/dL 06/25/2025 1.7 - 2. 4 [facility] Ca-I adj pH7.4 BldV ISE-mCnc 4.87 mg/dL 06/25/2025 4.6 - 5.08 [facility] Vancomycin Trough SerPl-mCnc 9.7 ug/mL Below low normal 06/24/2025 10 - 15 [facility] Gamma interferon background Bld IA-aCnc 0.02 IU/mL 06/26/[address] [facility] [address] Mitogen IGNF bckgrd cor Bld-aCnc 9.98 IU/mL 06/26/2025 [facility] M TB IFN-g CD4+ bckgrnd cor Bld-aCnc 0.02 IU/mL 06/26/2025 - 0.35 [facility] M TB IFN-g CD4+CD8+ bckgrnd cor Bld-aCnc 0.01 IU/mL 06/26/2025 - 0.35 [facility] M TB tuberc IFN-g Bld Ql Negative 06/26/2025 - [facility] ESR RBC Qn 48.0 mm/hr Above high normal 06/24/2025 0 - 20 [facility] Magnesium SerPl-mCnc 2.0 mg/dL 06/24/2025 1.7 - 2. 4 [facility] Anion Gap SerPl Calculated.3Ions-sCnc 12.0 06/24/2025 7 - [address] [facility] Potassium SerPl-sCnc 4.2 mmol/L 06/24/2025 3.3 - 5 .3 [facility] Creat SerPl-mCnc 1.0 mg/dL 06/24/2025 0.4 - 1.3 [facility] Glucose SerPl-mCnc 89.0 mg/dL 06/24/2025 70 - 100 [facility] GFR SerPlBld Creatinine-bsd fmla CKD-EPI >60.0 mL/min/1.73m2 06/24/2025 - [facility] BUN/Creat SerPl 17.0 06/24/2025 8 - 23 [facility] Chloride SerPl-sCnc 105.0 mmol/L 06/24/2025 98 - 1 07 [facility] HCO3 SerPl-sCnc 24.0 mmol/L 06/24/2025 20 - 30 [facility] BKR CREATININE DELTA -0.1 06/24/2025 - [facility] Calcium SerPl-mCnc 9.2 mg/dL 06/24/2025 8.8 - 10.2 [facility] Sodium SerPl-sCnc 141.0 mmol/L 06/24/2025 136 - 14 4 [facility] BUN SerPl-mCnc 17.0 mg/dL 06/24/2025 6 - 20 [facility] Phosphate SerPl-mCnc 2.6 mg/dL 06/24/2025 2.2 - 4. 5 [facility] CRP SerPl HS-mCnc 13.2 mg/L Above high normal 06/23/2025 - [facility] Magnesium SerPl-mCnc 2.1 mg/dL 06/23/2025 1.7 - 2. 4 [facility] Phosphate SerPl-mCnc 2.9 mg/dL 06/23/2025 2.2 - 4. 5 [facility] Creat SerPl-mCnc 1.1 mg/dL 06/23/2025 0.4 - 1.3 [facility] Glucose SerPl-mCnc 88.0 mg/dL 06/23/2025 70 - 100 [facility] Calcium SerPl-mCnc 10.1 mg/dL 06/23/2025 8.8 - 10. 2 [facility] BUN SerPl-mCnc 16.0 mg/dL 06/23/2025 6 - 20 [facility] GFR SerPlBld Creatinine-bsd fmla CKD-EPI >60.0 mL/min/1.73m2 06/23/2025 - [facility] Anion Gap SerPl Calculated.3Ions-sCnc 13.0 06/23/2025 7 - [address] [facility] Chloride SerPl-sCnc 107.0 mmol/L 06/23/2025 98 - 1 07 [facility] HCO3 SerPl-sCnc 23.0 mmol/L 06/23/2025 20 - 30 [facility] BKR CREATININE DELTA 0.0 06/23/2025 - [facility] Sodium SerPl-sCnc 143.0 mmol/L 06/23/2025 136 - 14 4 [facility] Potassium SerPl-sCnc 4.2 mmol/L 06/23/2025 3.3 - 5 .3 [facility] BUN/Creat SerPl 14.5 06/23/2025 8 - 23 [facility] BKR ABORH RECHECK INTERPRETATION O POS 06/23/2025 [facility] B[facility] RH TYPE POS 06/23/2025 [facility] T BKR ABO GROUPING O 06/23/2025 [facility] ANTIBODY SCREEN NEG 06/23/2025 [facility] BKR SPECIMEN EXPIRATION DATE AND TIME 06/26/2025 23:59 06/23/2025 [facility] Prothrombin time 11.1 seconds 06/23/2025 9 - 12 [facility] INR PPP 1.05 06/23/2025 0.9 - 1.1 [facility] CRP SerPl HS-mCnc 27.4 mg/L Above high normal 06/23/2025 - [facility] Calcium SerPl-mCnc 9.1 mg/dL 06/22/2025 8.8 - 10.2 [facility] Glucose SerPl-mCnc 106.0 mg/dL Above high normal 06/22/2025 70 - 100 [facility] HCO3 SerPl-sCnc 23.0 mmol/L 06/22/2025 20 - 30 [facility] BUN/Creat SerPl 16.4 06/22/2025 8 - 23 [facility] BKR CREATININE DELTA 0.1 06/22/2025 - [facility] BUN SerPl-mCnc 18.0 mg/dL 06/22/2025 6 - 20 [facility] Sodium SerPl-sCnc 139.0 mmol/L 06/22/2025 136 - 14 4 [facility] Chloride SerPl-sCnc 103.0 mmol/L 06/22/2025 98 - 1 07 [facility] GFR SerPlBld Creatinine-bsd fmla CKD-EPI >60.0 mL/min/1.73m2 06/22/2025 - [facility] Creat SerPl-mCnc 1.1 mg/dL 06/22/2025 0.4 - 1.3 [facility] Potassium SerPl-sCnc 3.7 mmol/L 06/22/2025 3.3 - 5 .3 [facility] Anion Gap SerPl Calculated.3Ions-sCnc 13.0 06/22/2025 7 - [address] [facility] Phosphate SerPl-mCnc 2.0 mg/dL Below low normal 06/22/2025 2 .2 - 4.5 [facility] Magnesium SerPl-mCnc 2.1 mg/dL 06/22/2025 1.7 - 2. 4 [facility] Magnesium SerPl-mCnc 1.7 mg/dL 06/21/2025 1.7 - 2. 4 [facility] Anion Gap SerPl Calculated.3Ions-sCnc 8.0 06/21/2025 7 - [address] [facility] HCO3 SerPl-sCnc 27.0 mmol/L 06/21/2025 20 - 30 [facility] Chloride SerPl-sCnc 104.0 mmol/L 06/21/2025 98 - 1 07 [facility] BKR CREATININE DELTA -0.2 06/21/2025 - [facility] Creat SerPl-mCnc 1.0 mg/dL 06/21/2025 0.4 - 1.3 [facility] Potassium SerPl-sCnc 3.8 mmol/L 06/21/2025 3.3 - 5 .3 [facility] Calcium SerPl-mCnc 9.2 mg/dL 06/21/2025 8.8 - 10.2 [facility] BUN SerPl-mCnc 14.0 mg/dL 06/21/2025 6 - 20 [facility] GFR SerPlBld Creatinine-bsd fmla CKD-EPI >60.0 mL/min/1.73m2 06/21/2025 - [facility] Glucose SerPl-mCnc 105.0 mg/dL Above high normal 06/21/2025 70 - 100 [facility] Sodium SerPl-sCnc 139.0 mmol/L 06/21/2025 136 - 14 4 [facility] BUN/Creat SerPl 14.0 06/21/2025 8 - 23 [facility] Phosphate SerPl-mCnc 1.7 mg/dL Below low normal 06/21/2025 2 .2 - 4.5 [facility] ALT SerPl w/o P-5'-P-cCnc 13.0 U/L 06/20/2025 9 - 59 [facility] Chloride SerPl-sCnc 107.0 mmol/L 06/20/2025 98 - 1 07 [facility] BUN/Creat SerPl 10.0 06/20/2025 8 - 23 [facility] Albumin/Glob SerPl 1.6 06/20/2025 1 - 2.2 [facility] Glucose SerPl-mCnc 119.0 mg/dL Above high normal 06/20/2025 70 - 100 [facility] GFR SerPlBld Creatinine-bsd fmla CKD-EPI >60.0 mL/min/1.73m2 06/20/2025 - [facility] HCO3 SerPl-sCnc 28.0 mmol/L 06/20/2025 20 - 30 [facility] Sodium SerPl-sCnc 142.0 mmol/L 06/20/2025 136 - 14 4 [facility] BUN SerPl-mCnc 12.0 mg/dL 06/20/2025 6 - 20 [facility] ALP SerPl-cCnc 62.0 U/L 06/20/2025 9 - 122 [facility] Calcium SerPl-mCnc 9.1 mg/dL 06/20/2025 8.8 - 10.2 [facility] AST SerPl w P-5'-P-cCnc 16.0 U/L 06/20/2025 10 - 35 [facility] Anion Gap SerPl Calculated.3Ions-sCnc 7.0 06/20/2025 7 - [address] [facility] Bilirub SerPl-mCnc 0.6 mg/dL 06/20/2025 - [facility] AST/ALT SerPl-cRto 1.2 06/20/2025 - [facility] Prot SerPl-mCnc 6.5 g/dL 06/20/2025 5.9 - 8.3 [facility] Potassium SerPl-sCnc 3.7 mmol/L 06/20/2025 3.3 - 5 .3 [facility] Globulin Plas-mCnc 2.5 g/dL 06/20/2025 2 - 3.9 [facility] BKR CREATININE DELTA 0.1 06/20/2025 - [facility] Creat SerPl-mCnc 1.2 mg/dL 06/20/2025 0.4 - 1.3 [facility] Albumin SerPl BCG-mCnc 4.0 g/dL 06/20/2025 3.6 - 5.1 [facility] Sodium SerPl-sCnc 142.0 mmol/L 06/20/2025 136 - 14 4 [facility] BUN/Creat SerPl 10.0 06/20/2025 8 - 23 [facility] Creat SerPl-mCnc 1.2 mg/dL 06/20/2025 0.4 - 1.3 [facility] Potassium SerPl-sCnc 3.7 mmol/L 06/20/2025 3.3 - 5 .3 [facility] Glucose SerPl-mCnc 119.0 mg/dL Above high normal 06/20/2025 70 - 100 [facility] Anion Gap SerPl Calculated.3Ions-sCnc 7.0 06/20/2025 7 - [address] [facility] Chloride SerPl-sCnc 107.0 mmol/L 06/20/2025 98 - 1 07 [facility] Calcium SerPl-mCnc 9.1 mg/dL 06/20/2025 8.8 - 10.2 [facility] HCO3 SerPl-sCnc 28.0 mmol/L 06/20/2025 20 - 30 [facility] BKR CREATININE DELTA 0.1 06/20/2025 - [facility] GFR SerPlBld Creatinine-bsd fmla CKD-EPI >60.0 mL/min/1.73m2 06/20/2025 - [facility] BUN SerPl-mCnc 12.0 mg/dL 06/20/2025 6 - 20 [facility] CRP SerPl HS-mCnc 19.6 mg/L Above high normal 06/20/2025 - [facility] Trigl SerPl-mCnc 84.0 mg/dL 06/20/2025 - [facility] Phosphate SerPl-mCnc 2.4 mg/dL 06/20/2025 2.2 - 4. 5 [facility] Magnesium SerPl-mCnc 1.9 mg/dL 06/20/2025 1.7 - 2. 4 [facility] Prealb SerPl Neph-mCnc 17.0 mg/dL Below low normal 20 - 40 [facility] Prothrombin time 10.9 seconds 06/20/2025 9 - 12 [facility] INR PPP 1.03 06/20/2025 0.9 - 1.1 [facility] aPTT PPP 24.9 seconds 06/20/2025 23 - [address] [facility] Hgb Bld-mCnc 11.8 g/dL Below low normal 06/20/2025 13.2 - 17 .1 [facility] MCH RBC Qn Auto 24.7 pg Below low normal 06/20/2025 27 - 3 3 [facility] Monocytes NFr Bld Auto 13.1 % Above high normal 4 - 12 [facility] Imm Granulocytes # Bld Auto 0.01 x 1000/uL 06/20/2025 0 - 0.3 [facility] nRBC Bld Auto-Rto 0.0 % 06/20/2025 0 - 1 [facility] Basophils NFr Bld Auto 0.4 % 06/20/2025 0 - 1. 4 [facility] Neutrophils NFr Bld Auto 51.2 % 06/20/2025 39 - 72 [facility] MCHC RBC Auto-EntMCnc 32.1 g/dL 06/20/2025 31 - 36 [facility] Monocytes # Bld Auto 0.62 x 1000/uL 06/20/2025 0 - 1 [facility] Neutrophils # Bld Auto 2.43 x 1000/uL 06/20/2025 2 - 7.6 [facility] RBC # Bld Auto 4.77 M/uL 06/20/2025 4 - 6 [facility] Lymphocytes # Bld Auto 1.55 x 1000/uL 06/20/2025 0 .6 - 3.7 [facility] nRBC # Bld Auto 0.0 x 1000/uL 06/20/2025 0 - 1 [facility] Lymphocytes NFr Bld Auto 32.6 % 06/20/2025 17 - 50 [facility] RDW RBC Auto 17.4 % Above high normal 06/20/2025 11 - 15 [facility] Hct VFr Bld Auto 36.8 % Below low normal 06/20/2025 38.5 - 50 [facility] PMV Bld Auto 8.8 fL 06/20/2025 8 - [address] [facility] Eosinophil NFr Bld Auto 2.5 % 06/20/2025 0 - 5 [facility] Platelet # Bld Auto 192.0 x1000/uL 06/20/2025 150 - 420 [facility] Basophils # Bld Auto 0.02 x 1000/uL 06/20/2025 0 - 1 [facility] RBC Auto 77.1 fL Below low normal 06/20/2025 80 - 100 [facility] WBC # Bld Auto 4.8 x1000/uL 06/20/2025 4 - 11 [facility] Eosinophil # Bld Auto 0.12 x 1000/uL 06/20/2025 0 - 1 [facility] Imm Granulocytes NFr Bld Auto 0.2 % 06/20/2025 0 - 1 [facility] Ca-I adj pH7.4 BldV ISE-mCnc 4.93 mg/dL 06/20/2025 4.6 - 5.08 [facility] Trigl SerPl-mCnc 78.0 mg/dL 06/20/2025 - [facility] Sodium SerPl-sCnc 141.0 mmol/L 06/19/2025 136 - 14 4 [facility] Calcium SerPl-mCnc 9.3 mg/dL 06/19/2025 8.8 - 10.2 [facility] Potassium SerPl-sCnc 3.9 mmol/L 06/19/2025 3.3 - 5 .3 [facility] BUN/Creat SerPl 9.1 06/19/2025 8 - 23 [facility] BUN SerPl-mCnc 10.0 mg/dL 06/19/2025 6 - 20 [facility] Chloride SerPl-sCnc 107.0 mmol/L 06/19/2025 98 - 1 07 [facility] Creat SerPl-mCnc 1.1 mg/dL 06/19/2025 0.4 - 1.3 [facility] Anion Gap SerPl Calculated.3Ions-sCnc 12.0 06/19/2025 7 - [address] [facility] HCO3 SerPl-sCnc 22.0 mmol/L 06/19/2025 20 - 30 [facility] Glucose SerPl-mCnc 137.0 mg/dL Above high normal 06/19/2025 70 - 100 [facility] BKR CREATININE DELTA -0.2 06/19/2025 - [facility] GFR SerPlBld Creatinine-bsd fmla CKD-EPI >60.0 mL/min/1.73m2 06/19/2025 - [facility] Imm Granulocytes NFr Bld Auto 0.2 % 06/19/2025 0 - 1 [facility] RDW RBC Auto 17.7 % Above high normal 06/19/2025 11 - 15 [facility] Monocytes NFr Bld Auto 9.6 % 06/19/2025 4 - 12 [facility] MCHC RBC Auto-EntMCnc 31.9 g/dL 06/19/2025 31 - 36 [facility] Platelet # Bld Auto 239.0 x1000/uL 06/19/2025 150 - 420 [facility] RBC Auto 76.6 fL Below low normal 06/19/2025 80 - 100 [facility] Hgb Bld-mCnc 13.7 g/dL 06/19/2025 13.2 - 17.1 [facility] WBC # Bld Auto 6.0 x1000/uL 06/19/2025 4 - 11 [facility] MCH RBC Qn Auto 24.4 pg Below low normal 06/19/2025 27 - 3 3 [facility] Neutrophils # Bld Auto 3.57 x 1000/uL 06/19/2025 2 - 7.6 [facility] Lymphocytes # Bld Auto 1.69 x 1000/uL 06/19/2025 0 .6 - 3.7 [facility] Eosinophil NFr Bld Auto 2.5 % 06/19/2025 0 - 5 [facility] nRBC # Bld Auto 0.0 x 1000/uL 06/19/2025 0 - 1 [facility] Hct VFr Bld Auto 43.0 % 06/19/2025 38.5 - 50 [facility] Monocytes # Bld Auto 0.58 x 1000/uL 06/19/2025 0 - 1 [facility] Eosinophil # Bld Auto 0.15 x 1000/uL 06/19/2025 0 - 1 [facility] Lymphocytes NFr Bld Auto 28.0 % 06/19/2025 17 - 50 [facility] Basophils # Bld Auto 0.03 x 1000/uL 06/19/2025 0 - 1 [facility] Basophils NFr Bld Auto 0.5 % 06/19/2025 0 - 1. 4 [facility] Neutrophils NFr Bld Auto 59.2 % 06/19/2025 39 - 72 [facility] Imm Granulocytes # Bld Auto 0.01 x 1000/uL 06/19/2025 0 - 0.3 [facility] nRBC Bld Auto-Rto 0.0 % 06/19/2025 0 - 1 [facility] PMV Bld Auto 8.7 fL 06/19/2025 8 - [address] [facility] RBC # Bld Auto 5.61 M/uL 06/19/2025 4 - 6 [facility] Anion Gap SerPl Calculated.3Ions-sCnc 11.0 06/18/2025 7 - [address] [facility] Glucose SerPl-mCnc 83.0 mg/dL 06/18/2025 70 - 100 [facility] BUN/Creat SerPl 6.9 Below low normal 06/18/2025 8 - 23 [facility] Creat SerPl-mCnc 1.3 mg/dL 06/18/2025 0.4 - 1.3 [facility] Sodium SerPl-sCnc 140.0 mmol/L 06/18/2025 136 - 14 4 [facility] Chloride SerPl-sCnc 104.0 mmol/L 06/18/2025 98 - 1 07 [facility] BKR CREATININE DELTA 0.2 06/18/2025 - [facility] GFR SerPlBld Creatinine-bsd fmla CKD-EPI >60.0 mL/min/1.73m2 06/18/2025 - [facility] BUN SerPl-mCnc 9.0 mg/dL 06/18/2025 6 - 20 [facility] Calcium SerPl-mCnc 9.1 mg/dL 06/18/2025 8.8 - 10.2 [facility] Potassium SerPl-sCnc 4.0 mmol/L 06/18/2025 3.3 - 5 .3 [facility] HCO3 SerPl-sCnc 25.0 mmol/L 06/18/2025 20 - 30 [facility] WBC # Bld Auto 7.3 x1000/uL 06/18/2025 4 - 11 [facility] Platelet # Bld Auto 206.0 x1000/uL 06/18/2025 150 - 420 [facility] Hgb Bld-mCnc 13.3 g/dL 06/18/2025 13.2 - 17.1 [facility]CHC RBC Auto-EntMCnc 31.5 g/dL 06/18/2025 31 - 36 [facility] RBC # Bld Auto 5.45 M/uL 06/18/2025 4 - 6 [facility] Hct VFr Bld Auto 42.2 % 06/18/2025 38.5 - 50 [facility] MCH RBC Qn Auto 24.4 pg Below low normal 06/18/2025 27 - 3 3 [facility] RDW RBC Auto 18.7 % Above high normal 06/18/2025 11 - 15 [facility] RBC Auto 77.4 fL Below low normal 06/18/2025 80 - 100 [facility] PMV Bld Auto 8.9 fL 06/18/2025 8 - [address] [facility] Neutrophils # Bld Auto 3.87 x 1000/uL 06/18/2025 2 - 7.6 [facility] Phosphate SerPl-mCnc 3.5 mg/dL 06/17/2025 2.2 - 4. 5 [facility] BKR CREATININE DELTA 0.14 06/17/2025 - [facility] HCO3 SerPl-sCnc 24.0 mmol/L 06/17/2025 20 - 30 [facility] GFR SerPlBld Creatinine-bsd fmla CKD-EPI >60.0 mL/min/1.73m2 06/17/2025 - [facility] Chloride SerPl-sCnc 103.0 mmol/L 06/17/2025 98 - 1 07 [facility] Calcium SerPl-mCnc 9.1 mg/dL 06/17/2025 8.8 - 10.2 [facility] BUN/Creat SerPl 9.1 06/17/2025 8 - 23 [facility] BUN SerPl-mCnc 10.0 mg/dL 06/17/2025 6 - 20 [facility] Anion Gap SerPl Calculated.3Ions-sCnc 12.0 06/17/2025 7 - [address] [facility] Potassium SerPl-sCnc 3.5 mmol/L 06/17/2025 3.3 - 5 .3 [facility] Sodium SerPl-sCnc 139.0 mmol/L 06/17/2025 136 - 14 4 [facility] Creat SerPl-mCnc 1.1 mg/dL 06/17/2025 0.4 - 1.3 [facility] Glucose SerPl-mCnc 133.0 mg/dL Above high normal 06/17/2025 70 - 100 [facility] Magnesium SerPl-mCnc 1.9 mg/dL 06/17/2025 1.7 - 2. 4 [facility] Trigl SerPl-mCnc 77.0 mg/dL 06/17/2025 - [facility] Eosinophil NFr Bld Auto 3.4 % 06/17/2025 0 - 5 [facility] Platelet # Bld Auto 223.0 x1000/uL 06/17/2025 150 - 420 [facility] MCH RBC Qn Auto 24.3 pg Below low normal 06/17/2025 27 - 3 3 [facility] Monocytes NFr Bld Auto 11.1 % 06/17/2025 4 - 12 [facility] nRBC # Bld Auto 0.0 x 1000/uL 06/17/2025 0 - 1 [facility] Eosinophil # Bld Auto 0.21 x 1000/uL 06/17/2025 0 - 1 [facility] Monocytes # Bld Auto 0.69 x 1000/uL 06/17/2025 0 - 1 [facility] Neutrophils NFr Bld Auto 54.0 % 06/17/2025 39 - 72 [facility] WBC # Bld Auto 6.2 x1000/uL 06/17/2025 4 - 11 [facility] RBC Auto 76.1 fL Below low normal 06/17/2025 80 - 100 [facility] Hct VFr Bld Auto 39.7 % 06/17/2025 38.5 - 50 [facility] PMV Bld Auto 8.8 fL 06/17/2025 8 - [address] Imm Granulocytes NFr Bld Auto 0.2 % 06/17/2025 0 - 1 [facility] MCHC RBC Auto-EntMCnc 32.0 g/dL 06/17/2025 31 - 36 [facility] Basophils # Bld Auto 0.03 x 1000/uL 06/17/2025 0 - 1 [facility] Hgb Bld-mCnc 12.7 g/dL Below low normal 06/17/2025 13.2 - 17 .1 [facility] Neutrophils # Bld Auto 3.35 x 1000/uL 06/17/2025 2 - 7.6 [facility] RBC # Bld Auto 5.22 M/uL 06/17/2025 4 - 6 [facility] Lymphocytes # Bld Auto 1.91 x 1000/uL 06/17/2025 0 .6 - 3.7 [facility] RDW RBC Auto 18.6 % Above high normal 06/17/2025 11 - 15 [facility] Lymphocytes NFr Bld Auto 30.8 % 06/17/2025 17 - 50 [facility] Imm Granulocytes # Bld Auto 0.01 x 1000/uL 06/17/2025 0 - 0.3 [facility] nRBC Bld Auto-Rto 0.0 % 06/17/2025 0 - 1 [facility] Basophils NFr Bld Auto 0.5 % 06/17/2025 0 - 1. 4 [facility] Prothrombin time 11.4 seconds 06/17/2025 9 - 12 [facility] INR PPP 1.06 06/17/2025 0.9 - 1.1 [facility] aPTT PPP 27.7 seconds 06/17/2025 23 - 31 [facility] T Calcium SerPl-mCnc 7.4 mg/dL Below low normal 06/16/2025 8.8 - 10.2 [facility] Glucose SerPl-mCnc 69.0 mg/dL Below low normal 06/16/2025 70 - 100 [facility] Globulin Plas-mCnc 2.4 g/dL 06/16/2025 2 - 3.9 [facility] HCO3 SerPl-sCnc 22.0 mmol/L 06/16/2025 20 - 30 [facility] Albumin SerPl BCG-mCnc 3.3 g/dL Below low normal 06/16/2025 3.6 - 5.1 [facility] ALT SerPl w/o P-5'-P-cCnc 15.0 U/L 06/16/2025 9 - 59 [facility] Potassium SerPl-sCnc 06/16/2025 [facility] Sodium SerPl-sCnc 141.0 mmol/L 06/16/2025 136 - 14 4 [facility] Bilirub SerPl-mCnc 0.8 mg/dL 06/16/2025 - [facility] BUN/Creat SerPl 9.4 06/16/2025 8 - 23 [facility] Creat SerPl-mCnc 0.96 mg/dL 06/16/2025 0.4 - 1.3 [facility] AST/ALT SerPl-cRto 06/16/2025 [facility] Albumin/Glob SerPl 1.4 06/16/2025 1 - 2.2 [facility] GFR SerPlBld Creatinine-bsd fmla CKD-EPI >60.0 mL/min/1.73m2 06/16/2025 - [facility] AST SerPl w P-5'-P-cCnc 06/16/2025 [facility] Anion Gap SerPl Calculated.3Ions-sCnc 9.0 06/16/2025 7 - 17 [facility] T ALP SerPl-cCnc 55.0 U/L 06/16/2025 9 - 122 [facility] Chloride SerPl-sCnc 110.0 mmol/L Above high normal 5 98 - 107 [facility] BUN SerPl-mCnc 9.0 mg/dL 06/16/2025 6 - 20 [facility] Prot SerPl-mCnc 5.7 g/dL Below low normal 06/16/2025 5.9 - 8.3 [facility] BKR CREATININE DELTA -0.19 06/16/2025 - [facility] Prealb SerPl Neph-mCnc 24.5 mg/dL 06/16/2025 20 - 40 [facility] Ca-I adj pH7.4 BldV ISE-mCnc 4.88 mg/dL 06/16/2025 4.6 - 5.08 [facility] aPTT PPP 29.2 seconds 06/16/2025 23 - 31 [facility] T Prothrombin time 11.3 seconds 06/16/2025 9 - 12 [facility] INR PPP 1.05 06/16/2025 0.9 - 1.1 [facility] Lactate SerPl-sCnc 0.8 mmol/L 06/16/2025 0.4 - 2 [facility] Magnesium SerPl-mCnc 1.7 mg/dL 06/16/2025 1.7 - 2. 4 [facility] Trigl SerPl-mCnc 110.0 mg/dL 06/16/2025 - [facility] Phosphate SerPl-mCnc 2.8 mg/dL 06/16/2025 2.2 - 4. 5 [facility] Procalcitonin SerPl-mCnc 0.08 ng/mL 06/16/2025 - [facility] CRP SerPl HS-mCnc 13.0 mg/L Above high normal 06/16/2025 - [facility] Glucose SerPl-mCnc 95.0 mg/dL 06/16/2025 70 - 100 [facility] GFR SerPlBld Creatinine-bsd fmla CKD-EPI >60.0 mL/min/1.73m2 06/16/2025 - [facility] Sodium SerPl-sCnc 139.0 mmol/L 06/16/2025 136 - 14 4 [facility] Potassium SerPl-sCnc 3.8 mmol/L 06/16/2025 3.3 - 5 .3 [facility] Calcium SerPl-mCnc 9.9 mg/dL 06/16/2025 8.8 - 10.2 [facility] HCO3 SerPl-sCnc 24.0 mmol/L 06/16/2025 20 - 30 [facility] BUN SerPl-mCnc 9.0 mg/dL 06/16/2025 6 - 20 [facility] Chloride SerPl-sCnc 102.0 mmol/L 06/16/2025 98 - 1 07 [facility] BKR CREATININE DELTA -0.03 06/16/2025 - [facility] Anion Gap SerPl Calculated.3Ions-sCnc 13.0 06/16/2025 7 - 17 [facility] T Creat SerPl-mCnc 1.15 mg/dL 06/16/2025 0.4 - 1.3 [facility] BUN/Creat SerPl 7.8 Below low normal 06/16/2025 8 - 23 [facility] ESR RBC Qn 27.0 mm/hr Above high normal 06/16/2025 0 - 20 [facility] INR PPP 1.01 06/16/2025 0.9 - 1.1 [facility] Prothrombin time 10.9 seconds 06/16/2025 9 - 12 [facility] Eosinophil NFr Bld Auto 2.4 % 06/16/2025 0 - 5 [facility] Basophils # Bld Auto 0.04 x 1000/uL 06/16/2025 0 - 1 [facility] Eosinophil # Bld Auto 0.18 x 1000/uL 06/16/2025 0 - 1 [facility] Hct VFr Bld Auto 45.7 % 06/16/2025 38.5 - 50 [facility] Neutrophils # Bld Auto 5.11 x 1000/uL 06/16/2025 2 - 7.6 [facility] nRBC Bld Auto-Rto 0.0 % 06/16/2025 0 - 1 [facility] nRBC # Bld Auto 0.0 x 1000/uL 06/16/2025 0 - 1 [facility] PMV Bld Auto 9.0 fL 06/16/2025 8 - 12 [facility] T RDW RBC Auto 19.3 % Above high normal 06/16/2025 11 - 15 [facility] RBC # Bld Auto 5.94 M/uL 06/16/2025 4 - 6 [facility] Neutrophils NFr Bld Auto 69.0 % 06/16/2025 39 - 72 [facility] Monocytes NFr Bld Auto 6.7 % 06/16/2025 4 - 12 [facility] Platelet # Bld Auto 251.0 x1000/uL 06/16/2025 150 - 420 [facility] Imm Granulocytes NFr Bld Auto 0.3 % 06/16/2025 0 - 1 [facility] Hgb Bld-mCnc 14.5 g/dL 06/16/2025 13.2 - 17.1 [facility] MCHC RBC Auto-EntMCnc 31.7 g/dL 06/16/2025 31 - 36 [facility] Monocytes # Bld Auto 0.5 x 1000/uL 06/16/2025 0 - 1 [facility] MCH RBC Qn Auto 24.4 pg Below low normal 06/16/2025 27 - 3 3 [facility] Imm Granulocytes # Bld Auto 0.02 x 1000/uL 06/16/2025 0 - 0.3 [facility] RBC Auto 76.9 fL Below low normal 06/16/2025 80 - 100 [facility] Lymphocytes NFr Bld Auto 21.1 % 06/16/2025 17 - 50 [facility] WBC # Bld Auto 7.4 x1000/uL 06/16/2025 4 - 11 [facility] Lymphocytes # Bld Auto 1.56 x 1000/uL 06/16/2025 0 .6 - 3.7 [facility] Basophils NFr Bld Auto 0.5 % 06/16/2025 0 - 1. 4 [facility] EVANGELINA Titr Ser IF <1:80 03/13/2025 - [facility] BRITTANIE Scl70 IgG Ser IA-aCnc 1.0 Manny U/mL 03/12/2025 - 7 [facility] SMA IgG Ser-aCnc 30.0 Units Above high normal 03/12/2025 - 2 0 [facility] Rheumatoid fact Ser Neph-aCnc <10.0 IU/mL 03/12/2025 - 14 [facility] Folate SerPl-mCnc 18.4 ng/mL 03/12/2025 - [facility] Vit B12 SerPl-mCnc 659.0 pg/mL 03/12/2025 232 - 12 45 [facility] Ceruloplasmin SerPl-mCnc 30.0 mg/dL 03/12/2025 18 - 51 [facility] IgG SerPl-mCnc 1014.0 mg/dL 03/11/2025 700 - 1600 [facility] IgM SerPl-mCnc 328.0 mg/dL Above high normal 03/11/2025 40 - 230 [facility] IgA SerPl-mCnc 94.0 mg/dL 03/11/2025 70 - 470 [facility] HDLc SerPl-mCnc 33.0 mg/dL Below low normal 03/11/2025 - [facility] Trigl SerPl-mCnc 143.0 mg/dL 03/11/2025 - [facility] Cholest/HDLc SerPl 4.5 03/11/2025 0 - 5 [facility] LDLc SerPl Calc-mCnc 89.0 mg/dL 03/11/2025 - [facility] Cholest SerPl-mCnc 147.0 mg/dL 03/11/2025 - [facility] ALT SerPl w/o P-5'-P-cCnc 16.0 U/L 03/11/2025 9 - 59 [facility] Prot SerPl-mCnc 7.5 g/dL 03/11/2025 5.9 - 8.3 [facility] Globulin Plas-mCnc 3.1 g/dL 03/11/2025 2 - 3.9 [facility] Albumin SerPl BCG-mCnc 4.4 g/dL 03/11/2025 3.6 - 5.1 [facility] Albumin/Glob SerPl 1.4 03/11/2025 1 - 2.2 [facility] Bilirub SerPl-mCnc 0.5 mg/dL 03/11/2025 - [facility] ALP SerPl-cCnc 64.0 U/L 03/11/2025 9 - 122 [facility] Bilirub Direct SerPl-mCnc 0.2 mg/dL 03/11/2025 - [facility] AST/ALT SerPl-cRto 1.8 03/11/2025 - [facility] AST SerPl w P-5'-P-cCnc 29.0 U/L 03/11/2025 10 - 35 [facility] Thyroperoxidase Ab SerPl IA-aCnc 22.0 IU/mL 03/11/2025 - 34 [facility] Ferritin SerPl-mCnc 36.0 ng/mL 03/11/2025 30 - 400 [facility] CRP SerPl HS-mCnc 7.1 mg/L Above high normal 03/11/2025 - [facility] Iron SerPl-mCnc 57.0 ug/dL Below low normal 03/11/2025 59 - 158 [facility] TIBC SerPl-mCnc 477.0 ug/dL Above high normal 03/11/2025 250 - 450 [facility] Iron Satn MFr SerPl 12.0 % Below low normal 03/11/2025 15 - 50 [facility] Glucose SerPl-mCnc 86.0 mg/dL 03/11/2025 70 - 100 [facility] HCO3 SerPl-sCnc 25.0 mmol/L 03/11/2025 20 - 30 [facility] Calcium SerPl-mCnc 9.0 mg/dL 03/11/2025 8.8 - 10.2 [facility] Anion Gap SerPl Calculated.3Ions-sCnc 12.0 03/11/2025 7 - 17 [facility] T BUN SerPl-mCnc 16.0 mg/dL 03/11/2025 6 - 20 [facility] Chloride SerPl-sCnc 103.0 mmol/L 03/11/2025 98 - 1 07 [facility] BKR CREATININE DELTA 03/11/2025 [facility] Creat SerPl-mCnc 1.18 mg/dL 03/11/2025 0.4 - 1.3 [facility] GFR SerPlBld Creatinine-bsd fmla CKD-EPI >60.0 mL/min/1.73m2 03/11/2025 - [facility] Potassium SerPl-sCnc 4.3 mmol/L 03/11/2025 3.3 - 5 .3 [facility] BUN/Creat SerPl 13.6 03/11/2025 8 - 23 [facility] Sodium SerPl-sCnc 140.0 mmol/L 03/11/2025 136 - 14 4 [facility] Prealb SerPl Neph-mCnc 24.7 mg/dL 03/11/2025 20 - 40 [facility] Prothrombin time 10.1 seconds 03/11/2025 9.6 - 12. 3 [facility] INR PPP 0.91 03/11/2025 0.86 - 1.13 [facility] Imm Granulocytes # Bld Auto 0.02 x 1000/uL 03/11/2025 0 - 0.3 [facility] RBC # Bld Auto 5.0 M/uL 03/11/2025 4 - 6 [facility] MCHC RBC Auto-EntMCnc 29.5 g/dL Below low normal 03/11/2025 31 - 36 [facility] Hgb Bld-mCnc 11.5 g/dL Below low normal 03/11/2025 13.2 - 17 .1 [facility] Imm Granulocytes NFr Bld Auto 0.4 % 03/11/2025 0 - 1 [facility] Lymphocytes # Bld Auto 1.27 x 1000/uL 03/11/2025 0 .6 - 3.7 [facility] WBC # Bld Auto 4.8 x1000/uL 03/11/2025 4 - 11 [facility] RBC Auto 78.0 fL Below low normal 03/11/2025 80 - 100 [facility] Hct VFr Bld Auto 39.0 % 03/11/2025 38.5 - 50 [facility] Lymphocytes NFr Bld Auto 26.2 % 03/11/2025 17 - 50 [facility] Eosinophil NFr Bld Auto 2.5 % 03/11/2025 0 - 5 [facility] Neutrophils NFr Bld Auto 63.5 % 03/11/2025 39 - 72 [facility] nRBC # Bld Auto 0.0 x 1000/uL 03/11/2025 0 - 1 [facility] Monocytes # Bld Auto 0.34 x 1000/uL 03/11/2025 0 - 1 [facility] Platelet # Bld Auto 266.0 x1000/uL 03/11/2025 150 - 420 [facility] PMV Bld Auto 9.1 fL 03/11/2025 8 - 12 [facility] T MCH RBC Qn Auto 23.0 pg Below low normal 03/11/2025 27 - 3 3 [facility] Basophils # Bld Auto 0.02 x 1000/uL 03/11/2025 0 - 1 [facility] nRBC Bld Auto-Rto 0.0 % 03/11/2025 0 - 1 [facility] Eosinophil # Bld Auto 0.12 x 1000/uL 03/11/2025 0 - 1 [facility] Monocytes NFr Bld Auto 7.0 % 03/11/2025 4 - 12 [facility] Basophils NFr Bld Auto 0.4 % 03/11/2025 0 - 1. 4 [facility] Neutrophils # Bld Auto 3.07 x 1000/uL 03/11/2025 2 - 7.6 [facility] RDW RBC Auto 14.2 % 03/11/2025 11 - 15 [facility] T EDDP Ur Ql NEGATIVE Normal 02/06/2025 - 100 [facility] 6MAM Ur Ql NEGATIVE Normal 02/06/2025 - 10 [facility] COMMENT 02/06/2025 [facility] THC Ur Ql Scn>20 ng/mL NEGATIVE Normal 02/06/2025 - 20 [facility] BZE Ur Ql NEGATIVE Normal 02/06/2025 - 150 [facility] MDMA/MDA POSITIVE Abnormal 02/06/2025 - 500 [facility] Barbiturates Ur Ql NEGATIVE Normal 02/06/2025 - 300 [facility] Benzodiaz Ur Ql NEGATIVE Normal 02/06/2025 - [facility] Amphetamines Ur Ql NEGATIVE Normal 02/06/2025 - 500 [facility] Opiates Ur Ql POSITIVE Abnormal 02/06/2025 - [facility] Buprenorphine Ur Ql NEGATIVE Normal 02/06/2025 - 5 [facility] PCP Ur Ql NEGATIVE Normal 02/06/2025 - 25 [facility] oxyCODONE Ur Ql POSITIVE Abnormal 02/06/2025 - [facility] Globulin Ser Calc-mCnc 2.5 g/dL (calc) Normal 02/06/2025 1.9 - 3.7 [facility] Albumin SerPl-mCnc 3.7 g/dL Normal 02/06/2025 3.6 - 5.1 [facility] ALT SerPl-cCnc 13.0 U/L Normal 02/06/2025 9 - 46 [facility] AST SerPl-cCnc 17.0 U/L Normal 02/06/2025 10 - 40 [facility] Chloride SerPl-sCnc 106.0 mmol/L Normal 02/06/2025 98 - 1 10 [facility] Calcium SerPl-mCnc 8.9 mg/dL Normal 02/06/2025 8.6 - 10.3 [facility] Creat SerPl-mCnc 1.05 mg/dL Normal 02/06/2025 0.6 - 1.29 [facility] BUN SerPl-mCnc 13.0 mg/dL Normal 02/06/2025 7 - [address] Glucose SerPl-mCnc 159.0 mg/dL Above high normal 02/06/2025 65 - 139 [facility] Prot SerPl-mCnc 6.2 g/dL Normal 02/06/2025 6.1 - 8.[address] Potassium SerPl-sCnc 4.0 mmol/L Normal 02/06/2025 3.5 - 5 .3 [facility] Albumin/Glob SerPl 1.5 (calc) Normal 02/06/2025 1 - 2.5 [facility] CO2 SerPl-sCnc 28.0 mmol/L Normal 02/06/2025 20 - 32 [facility] BUN/Creat SerPl SEE NOTE: 02/06/2025 6 - [address] Bilirub SerPl-mCnc 0.6 mg/dL Normal 02/06/2025 0.2 - 1.2 [facility] Sodium SerPl-sCnc 140.0 mmol/L Normal 02/06/2025 135 - 14 6 [facility] ALP SerPl-cCnc 52.0 U/L Normal 02/06/2025 36 - 130 [facility] eGFRcr SerPlBld CKD-EPI 2020 92.0 mL/min/1.73m2 Normal 02/06/2025 - [facility] Norbuprenorphine Ur-mCnc 2.0 ng/mL Above high normal 02/06/2025 - 2 [facility] Buprenorphine Ur-mCnc NEGATIVE 02/06/2025 - 2 [facility] COMMENT 02/06/2025 [facility] RBC Auto 85.7 fL Normal 02/06/2025 80 - 100 [facility] WBC # Bld Auto 3.6 Thousand/uL Below low normal 02/06/2025 3.8 - 10.8 [facility] RDW RBC Auto 13.9 % Normal 02/06/2025 11 - 15 [facility] Platelet # Bld Auto 261.0 Thousand/uL Normal 02/06/2025 140 - 400 [facility] RBC # Bld Auto 3.78 Million/uL Below low normal 02/06/2025 4.2 - 5.8 [facility] MCH RBC Qn Auto 25.4 pg Below low normal 02/06/2025 27 - 3 3 [facility] PMV Bld Ja-Adam 9.7 fL Normal 02/06/2025 7.5 - 12.5 [facility] Hgb Bld-mCnc 9.6 g/dL Below low normal 02/06/2025 13.2 - 17 .1 [facility] MCHC RBC Auto-EntMCnc 29.6 g/dL Below low normal 02/06/2025 32 - 36 [facility] Hct VFr Bld Auto 32.4 % Below low normal 02/06/2025 38.5 - 50 [facility] T4 SerPl-mCnc 5.6 mcg/dL Normal 02/06/2025 4.9 - 10.[address] FT4I SerPl Calc-mCnc 1.7 Normal 02/06/2025 1.4 - 3. 8 [facility] TSH SerPl-aCnc 0.65 mIU/L Normal 02/06/2025 0.4 - 4.[address] T3RU Fr SerPl 31.0 % Normal 02/06/2025 22 - 35 [facility] NATRIURETIC PEPTIDE B (BNP) 14.0 pg/mL 01/16/2025 0 - 100 [facility] TROPONIN I, HIGH SENSITIVITY 14.0 ng/L 01/16/2025 - [facility] ANION GAP 6.0 mmol/L 01/16/2025 3 - 11 [facility] BICARBONATE 22.0 mmol/L Below low normal 01/16/2025 23 - 32 [facility] UREA NITROGEN 13.0 mg/dL 01/16/2025 8 - 24 [facility] AST (SGOT) 43.0 U/L 01/16/2025 8 - 45 [facility] CHLORIDE 111.0 mmol/L 01/16/2025 100 - 111 [facility] PROTEIN TOTAL 6.6 g/dL 01/16/2025 6.2 - 8.1 [facility] GLUCOSE 119.0 mg/dL 01/16/2025 70 - 200 [facility] ALKALINE PHOSPHATASE 70.0 U/L 01/16/2025 39 - 113 [facility] ALT (SGPT) 78.0 U/L Above high normal 01/16/2025 - [facility] CREATININE 1.3 mg/dL Above high normal 01/16/2025 0.6 - 1.2 [facility] GLOMERULAR FILTRATION RATE ML/MIN/1.73 SQ M.PREDICTED 71.0 mL/min/1.73m*2 01/16/2025 60 - [facility] BILIRUBIN, TOTAL 1.1 mg/dL 01/16/2025 0.1 - 1.2 [facility] ALBUMIN, AUTOMATED 3.9 g/dL 01/16/2025 3.8 - 5.3 [facility] POTASSIUM 4.0 mmol/L 01/16/2025 3.6 - 5.1 [facility] SODIUM 139.0 mmol/L 01/16/2025 137 - 144 [facility] CALCIUM, TOTAL 9.3 mg/dL 01/16/2025 8.4 - 10.2 [facility] HEMATOCRIT 33.6 % Below low normal 01/16/2025 40 - 52 [facility] LYMPHOCYTE % 11.0 % Below low normal 01/16/2025 20 - 50 [facility] WHITE CELL COUNT 8.4 10*3/uL 01/16/2025 3.8 - 10.6 [facility] MPV 9.6 fL 01/16/2025 9.4 - 12.4 [facility] IMMATURE GRANULOCYTE % 0.4 % 01/16/2025 0 - 0. 6 [facility] NEUTROPHIL % 83.1 % Above high normal 01/16/2025 40 - 70 [facility] MCV 81.4 fL 01/16/2025 80 - 100 [facility] BASOPHILS % 0.4 % 01/16/2025 0 - 2 [facility] RBC DISTRIBUTION WIDTH 14.7 % 01/16/2025 11.6 - 14.[address] [facility] [address] 0.1 10*3/uL 01/16/2025 0 - 0.3 [facility] MCH 27.4 pg 01/16/2025 26 - 34 [facility] HEMOGLOBIN 11.3 g/dL Below low normal 01/16/2025 13 - 18 [facility] ABSOLUTE MONOCYTE CT. 0.33 10*3/uL 01/16/2025 0.2 - 0.[address] [facility] [address] 0.03 10*3/uL 01/16/2025 0 - 0 .[address] [facility] [address] 0.93 10*3/uL 01/16/2025 0. 7 - 4.5 [facility] MONOCYTE % 3.9 % Below low normal 01/16/2025 4 - 12 [facility] ABSOLUTE IMMATURE GRANULOCYTES 0.03 10*3/uL 01/16/2025 [facility] MCHC 33.6 g/dL 01/16/2025 32 - 36 [facility] PLATELET COUNT 164.0 10*3/uL 01/16/2025 150 - 440 [facility] AUTO NRBC % 0.0 % 01/16/2025 0 - [address] [facility] [address] 7.01 10*3/uL Above high normal 01/16 1.4 - 6.3 [facility] RED CELL COUNT 4.13 10*6/ L Below low normal 01/16/2025 4.4 - 5.9 [facility] EOSINOPHIL % 1.2 % 01/16/2025 0 - 6 [facility] HbA1c MFr Bld 5.5 % Normal 11/29/2024 - 5.7 [facility] Testost SerPl-mCnc 529.0 ng/dL Normal 11/29/2024 250 - 11 00 [facility] Albumin SerPl-mCnc 4.5 g/dL Normal 11/29/2024 3.6 - 5.1 [facility] Testost Bioavail SerPl-mCnc 263.1 ng/dL Normal 11/29/2024 110 - 575 [facility] SHBG SerPl-sCnc 15.0 nmol/L Normal 11/29/2024 10 - 50 [facility] Testost Free SerPl-mCnc 127.9 pg/mL Normal 11/29/2024 46 - 224 [facility] eGFRcr SerPlBld CKD-EPI 2020 87.0 mL/min/1.73m2 Normal 11/29/2024 - [facility] Creat SerPl-mCnc 1.1 mg/dL Normal 11/29/2024 0.6 - 1.29 [facility] Eosinophil # Bld Auto 101.0 cells/uL Normal 11/29/2024 15 - 500 [facility] RDW RBC Auto 15.4 % Above high normal 11/29/2024 11 - 15 [facility] PMV Bld Ja-Adam 9.9 fL Normal 11/29/2024 7.5 - 12.5 [facility] RBC Auto 83.8 fL Normal 11/29/2024 80 - 100 [facility] Neutrophils NFr Bld Auto 54.4 % Normal 11/29/2024 [facility] Eosinophil NFr Bld Auto 2.3 % Normal 11/29/2024 [facility] Lymphocytes # Bld Auto 1536.0 cells/uL Normal 11/29/2024 850 - 3900 [facility] Hct VFr Bld Auto 41.3 % Normal 11/29/2024 38.5 - 50 [facility] Lymphocytes NFr Bld Auto 34.9 % Normal 11/29/2024 [facility] MCHC RBC Auto-EntMCnc 32.4 g/dL Normal 11/29/2024 32 - 36 [facility] Neutrophils # Bld Auto 2394.0 cells/uL Normal 11/29/2024 1500 - 7800 [facility] Monocytes NFr Bld Auto 7.7 % Normal 11/29/2024 [facility] Platelet # Bld Auto 230.0 Thousand/uL Normal 11/29/2024 140 - 400 [facility] RBC # Bld Auto 4.93 Million/uL Normal 11/29/2024 4.2 - 5.8 [facility] Basophils NFr Bld Auto 0.7 % Normal 11/29/2024 [facility] Basophils # Bld Auto 31.0 cells/uL Normal 11/29/2024 0 - 200 [facility] Hgb Bld-mCnc 13.4 g/dL Normal 11/29/2024 13.2 - 17.1 [facility] Monocytes # Bld Auto 339.0 cells/uL Normal 11/29/2024 200 - 950 [facility] WBC # Bld Auto 4.4 Thousand/uL Normal 11/29/2024 3.8 - 10.8 [facility] MCH RBC Qn Auto 27.2 pg Normal 11/29/2024 27 - [address] BUN SerPl-mCnc 11.0 mg/dL Normal 11/29/2024 7 - [address] BUN SerPl-mCnc 12.0 mg/dL Normal 12/25/2023 7 - 18 [facility] GFR/BSA.pred SerPlBld ZNU-[id number]-[id number] >60.0 mL/min/1.73m2 Normal 12/25/2023 - [facility] HCO3 SerPl-sCnc 27.0 mmol/L Normal 12/25/2023 21 - 32 [facility] Calcium SerPl-mCnc 9.4 mg/dL Normal 12/25/2023 8.5 - 10.1 [facility] Glucose SerPl-mCnc 95.0 mg/dL Normal 12/25/2023 65 - 110 [facility] Anion Gap3 SerPl-sCnc 5.0 mmol/L Normal 12/25/2023 5 - 15 [facility] Chloride SerPl-sCnc 108.0 mmol/L Above high normal 98 - 107 [facility] Creat SerPl-mCnc 1.3 mg/dL Normal 12/25/2023 0.7 - 1.3 [facility] Sodium SerPl-sCnc 140.0 mmol/L Normal 12/25/2023 136 - 14 5 [facility] Potassium SerPl-sCnc 4.1 mmol/L Normal 12/25/2023 3.5 - 5 .1 [facility] Platelet # Bld Auto 223.0 x1000/uL Normal 12/25/2023 150 - 420 [facility] Neutrophils # Bld Auto 4.26 x 1000/uL Normal 12/25/2023 2 - 7.6 [facility] nRBC/100 WBC Bld Auto-Rto 0.0 % Normal 12/25/2023 0 - 1 [facility] MCH RBC Qn Auto 28.3 pg Normal 12/25/2023 27 - 33 [facility] WBC # Bld Auto 6.5 x1000/uL Normal 12/25/2023 4 - 11 [facility] Neutrophils/leuk NFr Bld Auto 65.8 % Normal 12/25/2023 39 - 72 [facility] MCV RBC Auto 83.5 fL Normal 12/25/2023 80 - [address] Monocytes # Bld Auto 0.49 x 1000/uL Normal 12/25/2023 0 - 1 [facility] Basophils # Bld Auto 0.03 x 1000/uL Normal 12/25/2023 0 - 1 [facility] Lymphocytes # Bld Auto 1.45 x 1000/uL Normal 12/25/2023 0 .6 - 3.7 [facility] Eosinophil/leuk NFr Bld Auto 3.4 % Normal 12/25/2023 0 - 5 [facility] Lymphocytes/leuk NFr Bld Auto 22.4 % Normal 12/25/2023 17 - 50 [facility] Monocytes/leuk NFr Bld Auto 7.6 % Normal 12/25/2023 4 - 12 [facility] PMV Bld Auto 10.0 fL Normal 12/25/2023 8 - [address] RBC # Bld Auto 5.4 M/uL Normal 12/25/2023 4 - 6 [facility] MCHC RBC Auto-mCnc 33.9 g/dL Normal 12/25/2023 31 - 36 [facility] Basophils/leuk NFr Bld Auto 0.5 % Normal 12/25/2023 0 - 1.4 [facility] Eosinophil # Bld Auto 0.22 x 1000/uL Normal 12/25/2023 0 - 1 [facility] Imm Granulocytes/leuk NFr Bld Auto 0.3 % Normal 12/25/2023 0 - 1 [facility] Hct VFr Bld Auto 45.1 % Normal 12/25/2023 38.5 - 50 [facility] Imm Granulocytes # Bld Auto 0.02 x 1000/uL Normal 12/25/2023 0 - 0.3 [facility] Hgb Bld-mCnc 15.3 g/dL Normal 12/25/2023 13.2 - 17.1 [facility] RDW RBC Auto-Rto 14.0 % Normal 12/25/2023 11 - 15 [facility] Magnesium SerPl-mCnc 2.0 mg/dL Normal 08/23/2023 1.7 - 2. 4 [facility] Sodium SerPl-sCnc 137.0 mmol/L Normal 08/23/2023 136 - 14 4 [facility] HCO3 SerPl-sCnc 15.0 mmol/L Below low normal 08/23/2023 20 - 30 [facility] Creat SerPl-mCnc 1.1 mg/dL Normal 08/23/2023 0.4 - 1.3 [facility] Glucose SerPl-mCnc 98.0 mg/dL Normal 08/23/2023 70 - 100 [facility] Chloride SerPl-sCnc 105.0 mmol/L Normal 08/23/2023 98 - 1 07 [facility] BUN/Creat SerPl 8.2 Normal 08/23/2023 8 - 23 [facility] BUN SerPl-mCnc 9.0 mg/dL Normal 08/23/2023 6 - 20 [facility] Potassium SerPl-sCnc Normal 08/23/2023 [facility] Calcium SerPl-mCnc 9.0 mg/dL Normal 08/23/2023 8.8 - 10.2 [facility] Anion Gap3 SerPl-sCnc 17.0 Normal 08/23/2023 7 - 17 [facility] GFR/BSA.pred SerPlBld EJR-MAW-AgNPzz >60.0 mL/min/1.73m2 Normal 08/23/2023 - [facility] Prothrombin time 11.4 seconds Normal 08/23/2023 9.6 - 12. 3 [facility] INR PPP 1.03 Normal 08/23/2023 0.86 - 1.12 [facility] aPTT PPP 31.7 seconds Above high normal 08/23/2023 23 - 31. 4 [facility] Neutrophils # Bld Auto 2.47 x 1000/uL Normal 08/23/2023 2 - 7.6 [facility] nRBC/100 WBC Bld Auto-Rto 0.0 % Normal 08/23/2023 0 - 1 [facility] nRBC # Bld Auto 0.0 x 1000/uL Normal 08/23/2023 0 - 1 [facility] Neutrophils/leuk NFr Bld Auto 58.1 % Normal 08/23/2023 39 - 72 [facility] RDW RBC Auto-Rto 13.7 % Normal 08/23/2023 11 - 15 [facility] Eosinophil/leuk NFr Bld Auto 1.9 % Normal 08/23/2023 0 - 5 [facility] Monocytes/leuk NFr Bld Auto 6.8 % Normal 08/23/2023 4 - 12 [facility] Imm Granulocytes/leuk NFr Bld Auto 0.5 % Normal 08/23/2023 0 - 1 [facility] Platelet # Bld Auto 178.0 x1000/uL Normal 08/23/2023 150 - 420 [facility] Basophils # Bld Auto 0.02 x 1000/uL Normal 08/23/2023 0 - 1 [facility] MCV RBC Auto 82.8 fL Normal 08/23/2023 80 - 100 [facility] T RBC # Bld Auto 4.78 M/uL Normal 08/23/2023 4 - 6 [facility] PMV Bld Auto 8.9 fL Normal 08/23/2023 8 - 12 [facility] T WBC # Bld Auto 4.3 x1000/uL Normal 08/23/2023 4 - 11 [facility] MCH RBC Qn Auto 27.4 pg Normal 08/23/2023 27 - 33 [facility] Lymphocytes/leuk NFr Bld Auto 32.2 % Normal 08/23/2023 17 - 50 [facility] Monocytes # Bld Auto 0.29 x 1000/uL Normal 08/23/2023 0 - 1 [facility] MCHC RBC Auto-mCnc 33.1 g/dL Normal 08/23/2023 31 - 36 [facility] Hgb Bld-mCnc 13.1 g/dL Below low normal 08/23/2023 13.2 - 17 .1 [facility] Imm Granulocytes # Bld Auto 0.02 x 1000/uL Normal 08/23/2023 0 - 0.3 [facility] Basophils/leuk NFr Bld Auto 0.5 % Normal 08/23/2023 0 - 1.4 [facility] Eosinophil # Bld Auto 0.08 x 1000/uL Normal 08/23/2023 0 - 1 [facility] Hct VFr Bld Auto 39.6 % Normal 08/23/2023 38.5 - 50 [facility] Lymphocytes # Bld Auto 1.37 x 1000/uL Normal 08/23/2023 0 .6 - 3.7 [facility] Magnesium SerPl-mCnc 2.0 mg/dL Normal 08/22/2023 1.7 - 2. 4 [facility] Chloride SerPl-sCnc 107.0 mmol/L Normal 08/22/2023 98 - 1 07 [facility] Glucose SerPl-mCnc 122.0 mg/dL Above high normal 08/22/2023 70 - 100 [facility] Anion Gap3 SerPl-sCnc 10.0 Normal 08/22/2023 7 - 17 [facility] BUN/Creat SerPl 5.7 Below low normal 08/22/2023 8 - 23 [facility] Potassium SerPl-sCnc 3.7 mmol/L Normal 08/22/2023 3.3 - 5 .3 [facility] HCO3 SerPl-sCnc 25.0 mmol/L Normal 08/22/2023 20 - 30 [facility] Sodium SerPl-sCnc 142.0 mmol/L Normal 08/22/2023 136 - 14 4 [facility] BUN SerPl-mCnc 7.0 mg/dL Normal 08/22/2023 6 - 20 [facility] GFR/BSA.pred SerPlBld WGR-VTL-XoJCfs >60.0 mL/min/1.73m2 Normal 08/22/2023 - [facility] Creat SerPl-mCnc 1.22 mg/dL Normal 08/22/2023 0.4 - 1.3 [facility] Calcium SerPl-mCnc 8.9 mg/dL Normal 08/22/2023 8.8 - 10.2 [facility] Magnesium SerPl-mCnc 2.2 mg/dL Normal 08/21/2023 1.7 - 2. 4 [facility] GFR/BSA.pred SerPlBld QML-GEF-GfUCcm >60.0 mL/min/1.73m2 Normal 08/21/2023 - [facility] Chloride SerPl-sCnc 105.0 mmol/L Normal 08/21/2023 98 - 1 07 [facility] BUN SerPl-mCnc 8.0 mg/dL Normal 08/21/2023 6 - 20 [facility] HCO3 SerPl-sCnc 26.0 mmol/L Normal 08/21/2023 20 - 30 [facility] Calcium SerPl-mCnc 9.0 mg/dL Normal 08/21/2023 8.8 - 10.2 [facility] Anion Gap3 SerPl-sCnc 10.0 Normal 08/21/2023 7 - 17 [facility] Sodium SerPl-sCnc 141.0 mmol/L Normal 08/21/2023 136 - 14 4 [facility] Potassium SerPl-sCnc 3.7 mmol/L Normal 08/21/2023 3.3 - 5 .3 [facility] Glucose SerPl-mCnc 120.0 mg/dL Above high normal 08/21/2023 70 - 100 [facility] Creat SerPl-mCnc 1.16 mg/dL Normal 08/21/2023 0.4 - 1.3 [facility] BUN/Creat SerPl 6.9 Below low normal 08/21/2023 8 - 23 [facility] Phosphate SerPl-mCnc 3.9 mg/dL Normal 08/20/2023 2.2 - 4. 5 [facility] Magnesium SerPl-mCnc 2.0 mg/dL Normal 08/20/2023 1.7 - 2. 4 [facility] GFR/BSA.pred SerPlBld XGS-LAA-QxGNov >60.0 mL/min/1.73m2 Normal 08/20/2023 - [facility] Calcium SerPl-mCnc 9.4 mg/dL Normal 08/20/2023 8.8 - 10.2 [facility] Potassium SerPl-sCnc 3.8 mmol/L Normal 08/20/2023 3.3 - 5 .3 [facility] Albumin/Glob SerPl 1.6 Normal 08/20/2023 1 - 2.2 [facility] Bilirub SerPl-mCnc 0.8 mg/dL Normal 08/20/2023 - [facility] Chloride SerPl-sCnc 105.0 mmol/L Normal 08/20/2023 98 - 1 07 [facility] Prot SerPl-mCnc 6.9 g/dL Normal 08/20/2023 6.6 - 8.7 [facility] AST/ALT SerPl-cRto 0.7 Normal 08/20/2023 - [facility] AST SerPl w P-5'-P-cCnc 26.0 U/L Normal 08/20/2023 10 - 35 [facility] HCO3 SerPl-sCnc 28.0 mmol/L Normal 08/20/2023 20 - 30 [facility] BUN/Creat SerPl 8.3 Normal 08/20/2023 8 - 23 [facility] Sodium SerPl-sCnc 142.0 mmol/L Normal 08/20/2023 136 - 14 4 [facility] Glucose SerPl-mCnc 128.0 mg/dL Above high normal 08/20/2023 70 - 100 [facility] Anion Gap3 SerPl-sCnc 9.0 Normal 08/20/2023 7 - 17 [facility] Creat SerPl-mCnc 1.09 mg/dL Normal 08/20/2023 0.4 - 1.3 [facility] ALT SerPl w/o P-5'-P-cCnc 35.0 U/L Normal 08/20/2023 9 - 59 [facility] BUN SerPl-mCnc 9.0 mg/dL Normal 08/20/2023 6 - 20 [facility] HCT Albumin SerPl BCG-mCnc 4.2 g/dL Normal 08/20/2023 3.6 - 4.9 [facility] Globulin Plas-mCnc 2.7 g/dL Normal 08/20/2023 2.3 - 3.5 [facility] ALP SerPl-cCnc 53.0 U/L Normal 08/20/2023 9 - 122 [facility] Eosinophil/leuk NFr Bld Auto 2.6 % Normal 08/20/2023 0 - 5 [facility] Monocytes # Bld Auto 0.24 x 1000/uL Normal 08/20/2023 0 - 1 [facility] MCHC RBC Auto-mCnc 32.5 g/dL Normal 08/20/2023 31 - 36 [facility] Eosinophil # Bld Auto 0.08 x 1000/uL Normal 08/20/2023 0 - 1 [facility] Hgb Bld-mCnc 13.7 g/dL Normal 08/20/2023 13.2 - 17.1 [facility] WBC # Bld Auto 3.1 x1000/uL Below low normal 08/20/2023 4 - 11 [facility] Imm Granulocytes # Bld Auto 0.0 x 1000/uL Normal 08/20/2023 0 - 0.3 [facility] Lymphocytes # Bld Auto 1.13 x 1000/uL Normal 08/20/2023 0 .6 - 3.7 [facility] RBC # Bld Auto 5.08 M/uL Normal 08/20/2023 4 - 6 [facility] Neutrophils/leuk NFr Bld Auto 52.0 % Normal 08/20/2023 39 - 72 [facility] Imm Granulocytes/leuk NFr Bld Auto 0.0 % Normal 08/20/2023 0 - 1 [facility] Neutrophils # Bld Auto 1.59 x 1000/uL Below low normal 08/20 2 - 7.6 [facility] Monocytes/leuk NFr Bld Auto 7.8 % Normal 08/20/2023 4 - 12 [facility] nRBC # Bld Auto 0.0 x 1000/uL Normal 08/20/2023 0 - 1 [facility] Platelet # Bld Auto 227.0 x1000/uL Normal 08/20/2023 150 - 420 [facility] Hct VFr Bld Auto 42.1 % Normal 08/20/2023 38.5 - 50 [facility] Lymphocytes/leuk NFr Bld Auto 36.9 % Normal 08/20/2023 17 - 50 [facility] PMV Bld Auto 8.8 fL Normal 08/20/2023 8 - 12 [facility] T Basophils # Bld Auto 0.02 x 1000/uL Normal 08/20/2023 0 - 1 [facility] MCH RBC Qn Auto 27.0 pg Normal 08/20/2023 27 - 33 [facility] MCV RBC Auto 82.9 fL Normal 08/20/2023 80 - 100 [facility] T Basophils/leuk NFr Bld Auto 0.7 % Normal 08/20/2023 0 - 1.4 [facility] nRBC/100 WBC Bld Auto-Rto 0.0 % Normal 08/20/2023 0 - 1 [facility] RDW RBC Auto-Rto 13.6 % Normal 08/20/2023 11 - 15 [facility] Phosphate SerPl-mCnc 2.9 mg/dL Normal 08/19/2023 2.2 - 4. 5 [facility] Magnesium SerPl-mCnc 2.2 mg/dL Normal 08/19/2023 1.7 - 2. 4 [facility] Chloride SerPl-sCnc 103.0 mmol/L Normal 08/19/2023 98 - 1 07 [facility] Anion Gap3 SerPl-sCnc 7.0 Normal 08/19/2023 7 - 17 [facility] Globulin Plas-mCnc 2.6 g/dL Normal 08/19/2023 2.3 - 3.5 [facility] Albumin/Glob SerPl 1.5 Normal 08/19/2023 1 - 2.2 [facility] Bilirub SerPl-mCnc 1.0 mg/dL Normal 08/19/2023 - [facility] AST SerPl w P-5'-P-cCnc 35.0 U/L Normal 08/19/2023 10 - 35 [facility] GFR/BSA.pred SerPlBld [id number]-DiHAso >60.0 mL/min/1.73m2 Normal 08/19/2023 - [facility] Potassium SerPl-sCnc 4.0 mmol/L Normal 08/19/2023 3.3 - 5 .3 [facility] ALT SerPl w/o P-5'-P-cCnc 36.0 U/L Normal 08/19/2023 9 - 59 [facility] Sodium SerPl-sCnc 138.0 mmol/L Normal 08/19/2023 136 - 14 4 [facility] AST/ALT SerPl-cRto 1.0 Normal 08/19/2023 - [facility] Albumin SerPl BCG-mCnc 3.9 g/dL Normal 08/19/2023 3.6 - 4.9 [facility] Glucose SerPl-mCnc 113.0 mg/dL Above high normal 08/19/2023 70 - 100 [facility] ALP SerPl-cCnc 48.0 U/L Normal 08/19/2023 9 - 122 [facility] Prot SerPl-mCnc 6.5 g/dL Below low normal 08/19/2023 6.6 - 8.7 [facility] Creat SerPl-mCnc 1.16 mg/dL Normal 08/19/2023 0.4 - 1.3 [facility] HCO3 SerPl-sCnc 28.0 mmol/L Normal 08/19/2023 20 - 30 [facility] BUN/Creat SerPl 8.6 Normal 08/19/2023 8 - 23 [facility] BUN SerPl-mCnc 10.0 mg/dL Normal 08/19/2023 6 - 20 [facility] Calcium SerPl-mCnc 9.2 mg/dL Normal 08/19/2023 8.8 - 10.2 [facility] Imm Granulocytes/leuk NFr Bld Auto 0.3 % Normal 08/19/2023 0 - 1 [facility] PMV Bld Auto 8.9 fL Normal 08/19/2023 8 - 12 [facility] T Imm Granulocytes # Bld Auto 0.01 x 1000/uL Normal 08/19/2023 0 - 0.3 [facility] Neutrophils/leuk NFr Bld Auto 44.9 % Normal 08/19/2023 39 - 72 [facility] Monocytes # Bld Auto 0.47 x 1000/uL Normal 08/19/2023 0 - 1 [facility] Eosinophil/leuk NFr Bld Auto 4.1 % Normal 08/19/2023 0 - 5 [facility] RDW RBC Auto-Rto 13.9 % Normal 08/19/2023 11 - 15 [facility] Hgb Bld-mCnc 12.7 g/dL Below low normal 08/19/2023 13.2 - 17 .1 [facility] WBC # Bld Auto 2.9 x1000/uL Below low normal 08/19/2023 4 - 11 [facility] Lymphocytes # Bld Auto 1.0 x 1000/uL Normal 08/19/2023 0. 6 - 3.7 [facility] Neutrophils # Bld Auto 1.32 x 1000/uL Below low normal 08/19 2 - 7.6 [facility] MCH RBC Qn Auto 27.3 pg Normal 08/19/2023 27 - 33 [facility] Monocytes/leuk NFr Bld Auto 16.0 % Above high normal 08/19/2023 4 - 12 [facility] MCHC RBC Auto-mCnc 33.1 g/dL Normal 08/19/2023 31 - 36 [facility] Lymphocytes/leuk NFr Bld Auto 34.0 % Normal 08/19/2023 17 - 50 [facility] Platelet # Bld Auto 168.0 x1000/uL Normal 08/19/2023 150 - 420 [facility] Basophils/leuk NFr Bld Auto 0.7 % Normal 08/19/2023 0 - 1.4 [facility] nRBC/100 WBC Bld Auto-Rto 0.0 % Normal 08/19/2023 0 - 1 [facility] Hct VFr Bld Auto 38.4 % Below low normal 08/19/2023 38.5 - 50 [facility] nRBC # Bld Auto 0.0 x 1000/uL Normal 08/19/2023 0 - 1 [facility] MCV RBC Auto 82.6 fL Normal 08/19/2023 80 - 100 [facility] T Basophils # Bld Auto 0.02 x 1000/uL Normal 08/19/2023 0 - 1 [facility] Eosinophil # Bld Auto 0.12 x 1000/uL Normal 08/19/2023 0 - 1 [facility] RBC # Bld Auto 4.65 M/uL Normal 08/19/2023 4 - 6 [facility] HCO3 SerPl-sCnc 24.0 mmol/L Normal 08/18/2023 20 - 30 [facility] Potassium SerPl-sCnc 3.6 mmol/L Normal 08/18/2023 3.3 - 5 .3 [facility] GFR/BSA.pred SerPlBld [id number] >60.0 mL/min/1.73m2 Normal 08/18/2023 - [facility] Creat SerPl-mCnc 1.1 mg/dL Normal 08/18/2023 0.4 - 1.3 [facility] Sodium SerPl-sCnc 137.0 mmol/L Normal 08/18/2023 136 - 14 4 [facility] BUN/Creat SerPl 10.0 Normal 08/18/2023 8 - 23 [facility] Chloride SerPl-sCnc 103.0 mmol/L Normal 08/18/2023 98 - 1 07 [facility] BUN SerPl-mCnc 11.0 mg/dL Normal 08/18/2023 6 - 20 [facility] Anion Gap3 SerPl-sCnc 10.0 Normal 08/18/2023 7 - 17 [facility] Glucose SerPl-mCnc 107.0 mg/dL Above high normal 08/18/2023 70 - 100 [facility] Calcium SerPl-mCnc 8.6 mg/dL Below low normal 08/18/2023 8.8 - 10.2 [facility] Eosinophil/leuk NFr Bld Auto 2.0 % Normal 08/18/2023 0 - 5 [facility] Imm Granulocytes # Bld Auto 0.01 x 1000/uL Normal 08/18/2023 0 - 0.3 [facility] Basophils # Bld Auto 0.02 x 1000/uL Normal 08/18/2023 0 - 1 [facility] Lymphocytes # Bld Auto 0.77 x 1000/uL Normal 08/18/2023 0 .6 - 3.7 [facility] MCHC RBC Auto-mCnc 33.2 g/dL Normal 08/18/2023 31 - 36 [facility] MCH RBC Qn Auto 27.0 pg Normal 08/18/2023 27 - 33 [facility] RDW RBC Auto-Rto 13.7 % Normal 08/18/2023 11 - 15 [facility] Hgb Bld-mCnc 12.3 g/dL Below low normal 08/18/2023 13.2 - 17 .1 [facility] WBC # Bld Auto 4.0 x1000/uL Normal 08/18/2023 4 - 11 [facility] Monocytes # Bld Auto 0.43 x 1000/uL Normal 08/18/2023 0 - 1 [facility] Neutrophils/leuk NFr Bld Auto 67.4 % Normal 08/18/2023 39 - 72 [facility] RBC # Bld Auto 4.55 M/uL Normal 08/18/2023 4 - 6 [facility] Hct VFr Bld Auto 37.1 % Below low normal 08/18/2023 38.5 - 50 [facility] Monocytes/leuk NFr Bld Auto 10.7 % Normal 08/18/2023 4 - 12 [facility] Basophils/leuk NFr Bld Auto 0.5 % Normal 08/18/2023 0 - 1.4 [facility] nRBC/100 WBC Bld Auto-Rto 0.0 % Normal 08/18/2023 0 - 1 [facility] Eosinophil # Bld Auto 0.08 x 1000/uL Normal 08/18/2023 0 - 1 [facility] PMV Bld Auto 8.9 fL Normal 08/18/2023 8 - 12 [facility] T nRBC # Bld Auto 0.0 x 1000/uL Normal 08/18/2023 0 - 1 [facility] MCV RBC Auto 81.5 fL Normal 08/18/2023 80 - 100 [facility] T Lymphocytes/leuk NFr Bld Auto 19.2 % Normal 08/18/2023 17 - 50 [facility] Platelet # Bld Auto 143.0 x1000/uL Below low normal 08/18/19 24 150 - 420 [facility] Imm Granulocytes/leuk NFr Bld Auto 0.2 % Normal 08/18/2023 0 - 1 [facility] Neutrophils # Bld Auto 2.7 x 1000/uL Normal 08/18/2023 2 - 7.6 [facility] Troponin T SerPl HS-mCnc 10.0 ng/L Normal 08/17/2023 [facility] Troponin T SerPl HS-mCnc 11.0 ng/L Normal 08/17/2023 [facility] Lactate SerPl-sCnc 1.5 mmol/L Normal 08/17/2023 0.5 - 2.2 [facility] ALP SerPl-cCnc 63.0 U/L Normal 08/17/2023 9 - 122 [facility] Bilirub SerPl-mCnc 1.3 mg/dL Above high normal 08/17/2023 - [facility] ALT SerPl w/o P-5'-P-cCnc 36.0 U/L Normal 08/17/2023 9 - 59 [facility] Prot SerPl-mCnc 7.2 g/dL Normal 08/17/2023 6.6 - 8.7 [facility] Albumin/Glob SerPl 1.7 Normal 08/17/2023 1 - 2.2 [facility] Globulin Plas-mCnc 2.7 g/dL Normal 08/17/2023 2.3 - 3.5 [facility] AST/ALT SerPl-cRto 0.7 Normal 08/17/2023 - [facility] Albumin SerPl BCG-mCnc 4.5 g/dL Normal 08/17/2023 3.6 - 4.9 [facility] AST SerPl w P-5'-P-cCnc 24.0 U/L Normal 08/17/2023 10 - 35 [facility] Bilirub Direct SerPl-mCnc 0.3 mg/dL Normal 08/17/2023 - [facility] ALT SerPl w/o P-5'-P-cCnc 36.0 U/L Normal 08/17/2023 9 - 59 [facility] Albumin SerPl BCG-mCnc 4.5 g/dL Normal 08/17/2023 3.6 - 4.9 [facility] HCO3 SerPl-sCnc 26.0 mmol/L Normal 08/17/2023 20 - 30 [facility] Glucose SerPl-mCnc 109.0 mg/dL Above high normal 08/17/2023 70 - 100 [facility] AST SerPl w P-5'-P-cCnc 24.0 U/L Normal 08/17/2023 10 - 35 [facility] Bilirub SerPl-mCnc 1.3 mg/dL Above high normal 08/17/2023 - [facility] Albumin/Glob SerPl 1.7 Normal 08/17/2023 1 - 2.2 [facility] BUN SerPl-mCnc 14.0 mg/dL Normal 08/17/2023 6 - 20 [facility] AST/ALT SerPl-cRto 0.7 Normal 08/17/2023 - [facility] Globulin Plas-mCnc 2.7 g/dL Normal 08/17/2023 2.3 - 3.5 [facility] Anion Gap3 SerPl-sCnc 11.0 Normal 08/17/2023 7 - 17 [facility] BUN/Creat SerPl 12.7 Normal 08/17/2023 8 - 23 [facility] Prot SerPl-mCnc 7.2 g/dL Normal 08/17/2023 6.6 - 8.7 [facility] Chloride SerPl-sCnc 102.0 mmol/L Normal 08/17/2023 98 - 1 07 [facility] Sodium SerPl-sCnc 139.0 mmol/L Normal 08/17/2023 136 - 14 4 [facility] Potassium SerPl-sCnc 4.1 mmol/L Normal 08/17/2023 3.3 - 5 .3 [facility] Calcium SerPl-mCnc 9.6 mg/dL Normal 08/17/2023 8.8 - 10.2 [facility] Creat SerPl-mCnc 1.1 mg/dL Normal 08/17/2023 0.4 - 1.3 [facility] ALP SerPl-cCnc 63.0 U/L Normal 08/17/2023 9 - 122 [facility] GFR/BSA.pred SerPlBld FNN-TES-[id number] >60.0 mL/min/1.73m2 Normal 08/17/2023 - [facility] MCH RBC Qn Auto 26.7 pg Below low normal 08/17/2023 27 - 3 3 [facility] Eosinophil # Bld Auto 0.03 x 1000/uL Normal 08/17/2023 0 - 1 [facility] Monocytes/leuk NFr Bld Auto 2.6 % Below low normal 08/17/2023 4 - 12 [facility] Lymphocytes/leuk NFr Bld Auto 4.6 % Below low normal 08/17/2023 17 - 50 [facility] Neutrophils/leuk NFr Bld Auto 91.8 % Above high normal 08/17/2023 39 - 72 [facility] Lymphocytes # Bld Auto 0.37 x 1000/uL Below low normal 08/17 0.6 - 3.7 [facility] RBC # Bld Auto 5.14 M/uL Normal 08/17/2023 4 - 6 [facility] Imm Granulocytes/leuk NFr Bld Auto 0.4 % Normal 08/17/2023 0 - 1 [facility] nRBC # Bld Auto 0.0 x 1000/uL Normal 08/17/2023 0 - 1 [facility] Neutrophils # Bld Auto 7.37 x 1000/uL Normal 08/17/2023 2 - 7.6 [facility] WBC # Bld Auto 8.0 x1000/uL Normal 08/17/2023 4 - 11 [facility] Basophils # Bld Auto 0.02 x 1000/uL Normal 08/17/2023 0 - 1 [facility] Basophils/leuk NFr Bld Auto 0.2 % Normal 08/17/2023 0 - 1.4 [facility] Platelet # Bld Auto 178.0 x1000/uL Normal 08/17/2023 150 - 420 [facility] Monocytes # Bld Auto 0.21 x 1000/uL Normal 08/17/2023 0 - 1 [facility] MCHC RBC Auto-mCnc 32.9 g/dL Normal 08/17/2023 31 - 36 [facility] PMV Bld Auto 9.0 fL Normal 08/17/2023 8 - 12 [facility] T Eosinophil/leuk NFr Bld Auto 0.4 % Normal 08/17/2023 0 - 5 [facility] RDW RBC Auto-Rto 13.5 % Normal 08/17/2023 11 - 15 [facility] nRBC/100 WBC Bld Auto-Rto 0.0 % Normal 08/17/2023 0 - 1 [facility] Hct VFr Bld Auto 41.7 % Normal 08/17/2023 38.5 - 50 [facility] Imm Granulocytes # Bld Auto 0.03 x 1000/uL Normal 08/17/2023 0 - 0.3 [facility] Hgb Bld-mCnc 13.7 g/dL Normal 08/17/2023 13.2 - 17.1 [facility] MCV RBC Auto 81.1 fL Normal 08/17/2023 80 - 100 [facility] T Troponin T SerPl HS-mCnc 14.0 ng/L Above high normal 08/17/2023 - [facility] BKR REFLEX URINE CULTURE See Comment Normal 08/17/2023 [facility] Urobilinogen Ur Strip-mCnc <2.0 mg/dL Normal 08/17/2023 - [facility] WBC # Ur Strip Negative Normal 08/17/2023 - [facility] Glucose Ur Strip.auto-mCnc Negative Normal 08/17/2023 - [facility] Hgb Ur Ql Strip.auto Negative Normal 08/17/2023 - [facility] Prot Ur Strip.auto-mCnc Negative Normal 08/17/2023 - [facility] Color Ur Auto Yellow Normal 08/17/2023 - [facility] Sp Gr Ur Refract.auto 1.018 Normal 08/17/2023 1.0 05 - 1.03 [facility] Ketones Ur Strip.auto-mCnc Negative Normal 08/17/2023 - [facility] Bilirub Ur Ql Strip.auto Negative Normal 08/17/2023 - [facility] Nitrite Ur Ql Strip.auto Negative Normal 08/17/2023 - [facility] Clarity Ur Refract.auto Clear Normal 08/17/2023 - [facility] pH Ur Strip.auto 5.5 Normal 08/17/2023 5.5 - 7.5 [facility] History of Medication Use Medication Directions Dispensed Refills Start Date End Date Status ibuprofen (ADVIL,MOTRIN) tablet 400 mg 400 mg, Per J Tube, 3 TIMES DAILY PRN, mild Pain (PIS 1-3), for adult patients may also give for higher pain score per patient preference, Starting on Sun06/26/25 at 1108, Common Side Effects: Stomach upset, dizziness, increased bleeding risk. aborted HYDROmorphone (DILAUDID) 2 mg tablet 1-2 tablets (2-4 mg total) by Per J Tube route 4 (four) times daily as needed for pain for up to 5 days. aborted oxyCODONE (ROXICODONE) 10 mg Immediate Release tablet Take 2 tablets (20 mg total) by mouth every 6 (six) hours as needed for pain (for severe pain). aborted oxyCODONE (ROXICODONE) 10 mg Immediate Release tablet Take 0.5 tablets (5 mg total) by mouth every 6 (six) hours as needed for pain (for moderate pain). aborted ibuprofen (ADVIL,MOTRIN) 200 mg tablet Take 2-3 tablets (400-600 mg total) by mouth 2 (two) times daily as needed for pain. active oxyCODONE 20 mg tablet Take 1 tablet (20 mg total) by mouth every 8 (eight) hours as needed for pain (for severe pain). active cefTRIAXone (ROCEPHIN) 2 g in sodium chloride 0.9% PF 0.9% 20 mL (100 mg/mL) 20 mLs (2 g total) by IV Push route every 24 hours. 5 025 active vancomycin (VANCOCIN) 1.25 g in sodium chloride 0.9% 250 mL IVPB Inject 1.25 g at 166.7 mL/hr over 90 minutes into the vein every 8 (eight) hours. active fentaNYL PF (SUBLIMAZE) injection INTRA-OP PRN, Starting on Sun06/23/25 at 0835, Intra-procedure 5 aborted midazolam (PF) (VERSED) injection INTRA-OP PRN, Starting on Sun06/23/25 at 0835, Intra-procedure aborted carisoprodoL (SOMA) tablet 350 mg 350 mg, Per J Tube, 2 TIMES DAILY PRN, other, Muscle spasms, Starting on Sun06/22/25 at 1214 aborted diclofenac (VOLTAREN) 1 % gel 2 g 2 g, Topical (Top), 4 Times Daily Scheduled, First dose on Sun06/22/25 at 1315, Apply to: left shoulder blade/shoulder Apply to clean, dry, intact skin; do not apply to open wounds, eyes, or mucous membranes. Do not cover with occlusive dressings. (2 g = 2.25 inches, 4 g = 4.5 inches) aborted Adult, adolescent, and children 11 years of age and older or 40 kg or greater parenteral nutrition Given ceftriaxone therapy, to facilitate addition of calcium to TPN, please: * Give ceftriaxone via peripheral line Or * stop TPN for 5 minutes prior to giving ceftriaxone, flush TPN line, give ceftriaxone via non-TPN lumen, flush that lumen, then re-start TPN infusion. If rout 5 aborted HYDROmorphone (DILAUDID) injection syringe 0.5 mg 0.5 mg, IV Push, ONCE, On Sun06/22/25 at 0015, For 1 dose, If ordered IV Push, administer undiluted at a rate of 0.5mg over 1 minute. If ordered SC, administer over a few seconds. For SC dose volumes greater than 1.5 mL, use multiple injection sites. RECOMMENDED monitoring for Opiate Na ve patien completed bisacodyL (DULCOLAX) suppository 10 mg 10 mg, Rectal, DAILY PRN, constipation, Starting on Sun06/19/25 at 0746, Common Side Effects: Diarrhea, discomfort, cramps. 5 aborted senna (SENOKOT) tablet 17.2 mg 17.2 mg (2 tablet), Per J Tube, 2 Times Daily Scheduled, First dose on Sun06/18/25 at 2100, Common Side Effects: Diarrhea, discomfort, cramps. 5 aborted D5 1/2 NS infusion 50 mL/hr, Intravenous, CONTINUOUS, Starting on Sun06/18/25 at 1945, For 1 day 5 completed famotidine (PEPCID) tablet 40 mg 40 mg, Per J Tube, Daily, First dose on Sun06/18/25 at 0900, Pharmacist will implement [facility] Renal Dose Adjustment Protocol unless otherwise specified: Implement Protocol 5 aborted prucalopride (MOTEGRITY) tablet 1 mg 1 mg, Per J Tube, Daily, First dose on Sun06/18/25 at 0900, Reason for use: Continuation of chronic therapy, OP SI tablet (1 mg total) by Per J Tube route daily. 5 aborted acetaminophen (TYLENOL) tablet 1,000 mg 1,000 mg, Per J Tube, Every 8 Hours Scheduled, First dose on Sun06/17/25 at 1400, Maximum dose of acetaminophen is 4000 mg from all sources in 24 hours. 5 aborted buprenorphine (BUTRANS) 20 mcg/hour weekly transdermal 1 patch 1 patch, Transdermal, Weekly, First dose on Sun06/17/25 at 0900, Apply patch labeled buprenorphine transdermal to dry, clean, unshaven and hairless area (upper arm or chest). Avoid touching the sticky side of the buprenorphine patch. Common Side Effects: confusion, nausea, vomiting, drowsiness, 5 aborted cyproheptadine (PERIACTIN) 4 mg tablet 4 mg 4 mg, Per J Tube, 3 Times Daily Scheduled, First dose on Sun06/16/25 at 2100, OP SIG:TAKE 1 TABLET (4 MG TOTAL) BY PER J TUBE ROUTE 3 (THREE) TIMES DAILY. 5 aborted ethyl alcohol 62 % nasal swab 1 Application 1 Application, Nasal, Every 12 Hours Scheduled, First dose on Sun06/19/25 at 2100, 1) Clean inside of both nostrils with a tissue. 2) Insert swab into right nostril and rotate for 30 seconds. 3) Repeat swab procedure in left nostril. 4) Do not blow nose. If solution drips, gently wipe with a tissu 5 aborted fenofibrate (LOFIBRA) tablet 160 mg 160 mg, Oral, Daily, First dose on Sun06/17/25 at 0900 5 aborted pyridostigmine (MESTINON) Immediate Release tablet 60 mg 60 mg, Per J Tube, Every 8 Hours Scheduled, First dose on Sun06/17/25 at 0745 5 aborted tiZANidine (ZANAFLEX) tablet 2 mg 2 mg, Per J Tube, 2 TIMES DAILY PRN, muscle spasms, Starting on Sun06/17/25 at 1254 5 aborted ketorolac (TORadol) injection 15 mg 15 mg, IV Push, EVERY 6 HOURS PRN, other, 1st line breakthrough pain (give if oxycodone ineffective after 30 minutes), Starting on Sun06/18/25 at 1303, For 2 days, Maximum IV Push dose of 30 mg. If ordered IV Push, administer undiluted over 15 seconds. Common Side Effects include stomach upset, diz 5 completed dextrose 5 % in water (D5W) infusion 75 mL/hr, Intravenous, CONTINUOUS, Starting on Sun06/16/25 at 1945 aborted dextrose (GLUCOSE) oral liquid 15 g 15 g, Oral, EVERY 15 MIN PRN, If blood glucose 50 - 69 mg/dL (or 70 - 79 mg/dL with symptoms of hypoglycemia), Starting on Sun06/16/25 at 1840, (Automated Hypoglycemia Order) If alert and able to tolerate enteral intake (not NPO or vomiting). Only administer ONE treatment option. Notify coverin 5 aborted dextrose (GLUCOSE) oral liquid 30 g 30 g, Oral, EVERY 15 MIN PRN, If blood glucose less than 50 mg/dL, Starting on Sun06/16/25 at 1840, (Automated Hypoglycemia Order) If alert and able to tolerate enteral intake (not NPO or vomiting). Only administer ONE treatment option. Notify covering clinician, repeat blood glucose (BG) IMMED 5 aborted fruit juice 120 mL 120 mL, Oral, EVERY 15 MIN PRN, If blood glucose 50 - 69 mg/dL (or 70 - 79 mg/dL with symptoms of hypoglycemia), Starting on Sun06/16/25 at 1840, (Automated Hypoglycemia Order) If alert and able to tolerate enteral intake (not NPO or vomiting). Only administer ONE treatment option. Notify cover 5 aborted fruit juice 240 mL 240 mL, Oral, EVERY 15 MIN PRN, If blood glucose less than 50 mg/dL, Starting on Sun06/16/25 at 1840, (Automated Hypoglycemia Order) If alert and able to tolerate enteral intake (not NPO or vomiting). Only administer ONE treatment option. Notify covering clinician, repeat blood glucose (BG) IMM 5 aborted glucagon 1 mg in water for injection, sterile 1 mL (1 mg/mL) 1 mg, Intramuscular, ONCE PRN, If blood glucose less than 70 mg/dL (or 70 - 79 mg/dL with symptoms of hypoglycemia), Starting on Sun06/16/25 at 1840, For 1 dose, (Automated Hypoglycemia Order) Only administer if patient has NO IV ACCESS available AND is not alert, not cooperative or unable to belem 5 aborted HYDROmorphone (DILAUDID) injection 0.5 mg 0.5 mg, IV Push, ONCE, On Sun06/16/25 at 1245, For 1 dose, If ordered IV Push, administer undiluted at a rate of 0.5mg over 1 minute. If ordered SC, administer over a few seconds. For SC dose volumes greater than 1.5 mL, use multiple injection sites. RECOMMENDED monitoring for Opiate Na ve patien 5 completed HYDROmorphone (DILAUDID) injection 1 mg 1 mg, IV Push, ONCE, On Sun06/16/25 at 1115, For 1 dose, If ordered IV Push, administer undiluted at a rate of 0.5mg over 1 minute. If ordered SC, administer over a few seconds. For SC dose volumes greater than 1.5 mL, use multiple injection sites. RECOMMENDED monitoring for Opiate Na ve patients 5 completed iohexoL (OMNIPAQUE) 350 mg iodine/mL injection 70 mL 70 mL, Intravenous, IMG ONCE PRN, other, Starting on Sun06/16/25 at 1723, For 1 dose, Vesicant agents may cause severe tissue damage, including necrosis, if they extravasate into tissue; Common Side Effects: Headache, nausea, allergic reaction. 5 completed metoclopramide (REGLAN) injection 10 mg 10 mg, Intravenous, ONCE, On Sun06/16/25 at 1245, For 1 dose, Pharmacist will implement Pharmacist IV to Enteral Conversion Protocol unless otherwise specified: Implement Protocol, Pharmacist will implement [facility] Renal Dose Adjustment Protocol unless otherwise specified: Implement Protocol 5 completed propranolol 40 mg/5 mL (8 mg/mL) oral solution Take 80 mg 3 times a day by oral route. active cyproheptadine (PERIACTIN) 4 mg tablet TAKE 1 TABLET (4 MG TOTAL) BY PER J TUBE ROUTE 3 (THREE) TIMES DAILY. active gadobutrol (GADAVIST) injection 10 mL 10 mL, Intravenous, Once in imaging, contrast, Starting on Sun06/05/25 at 1032, For 1 dose, Radiology Appointment 5 completed promethazine (PHENERGAN) 12.5 mg tablet 1 tablet (12.5 mg total) by Per J Tube route every 8 (eight) hours as needed for nausea. active pyridostigmine (MESTINON) 60 mg/5 mL syrup TAKE 5 MLS (60 MG TOTAL) BY MOUTH 3 (THREE) TIMES DAILY. 5 active triamcinolone (KENALOG) 0.1 % cream Apply topically 2 (two) times daily. 5 025 aborted predniSONE 5 mg/5 mL solution Take 40 mLs (40 mg total) by mouth daily for 3 days, THEN 30 mLs (30 mg total) daily for 3 days, THEN 20 mLs (20 mg total) daily for 3 days, THEN 10 mLs (10 mg total) daily for 3 days. Take with food. 5 active triamcinolone (KENALOG) 0.1 % cream Apply topically 2 (two) times daily. 5 active MOUNJARO 10 mg/0.5 mL Pen Injector Inject 1 Pen (10 mg total) under the skin every 7 days @1800. 5 active MOUNJARO 10 mg/0.5 mL Pen Injector Inject 1 Pen (10 mg total) under the skin once a week. (Sunday). 5 active promethazine (PHENERGAN) 12.5 mg tablet TAKE 1 TAB (12.5 MG) BY PER J TUBE ROUTE EVERY 8 HOURS NEEDED FOR NAUSEA OR VOMITING 5 active carisoprodol (SOMA) 350 MG tablet Take 1 tablet (350 mg total) by mouth 2 (two) times a day as needed for muscle spasms. 5 active lansoprazole (PREVACID SOLUTAB) [address] 1 tablet (15 mg total) onto the tongue daily. 5 active cyproheptadine (PERIACTIN) 4 mg tablet TAKE 1 TABLET (4 MG TOTAL) BY PER J TUBE ROUTE 3 (THREE) TIMES DAILY. 5 active EPINEPHrine 0.3 mg/0.3 mL Inj auto-injector Inject 0.3 mg into the muscle once as needed for anaphylaxis for up to 1 dose. 5 active EPINEPHrine 0.3 mg/0.3 mL Inj auto-injector Inject 0.3 mg into the muscle once as needed for anaphylaxis for up to 1 dose. 5 active prednisoLONE (ORAPRED) Solution Take 10ml x 3 days; 5ml x 3 days; 2.5ml x 3 days then stop 5 active methocarbamol (ROBAXIN) 500 MG tablet Take 1 tablet (500 mg total) by mouth 3 (three) times a day as needed for muscle spasms. 5 active albuterol sulfate 90 mcg/actuation HFA aerosol inhaler Inhale into the lungs. 5 025 aborted albuterol (PROVENTIL HFA; VENTOLIN HFA) 108 (90 Base) MCG/ACT inhaler Inhale 1-2 puffs every 4 (four) hours as needed for wheezing. 5 active albuterol sulfate 90 mcg/actuation HFA aerosol inhaler Inhale into the lungs. 5 active oseltamivir (TAMIFLU) 75 MG capsule Take 1 capsule (75 mg total) by mouth 2 (two) times a day. 5 025 completed levocetirizine (XYZAL) 5 MG tablet Take 1 tablet 1-2 times a day as needed 5 active propranolol (INDERAL) 80 MG tablet 1 tablet (80 mg total) by Mouth/Oral Cavity route every 12 hours. 5 active albuterol (PROVENTIL HFA; VENTOLIN HFA) 108 (90 Base) MCG/ACT inhaler Inhale 2 puffs 4 times daily (every 6 hours) as needed for wheezing. 5 025 aborted benzonatate (TESSALON) 100 MG capsule Take 1 capsule (100 mg total) by mouth 3 (three) times a day as needed for cough. 5 active clotrimazole-betamet hasone (LOTRISONE) cream Apply topically 2 (two) times a day. 4 024 active Continuous Glucose Sensor (Roc2Loc G7 Sensor) [facility] [place] Apply 1 Device topically continuously. Use 1 sensor every 10 days 4 active pyridostigmine (MESTINON) 60 mg/5 mL syrup Take 5 mLs (60 mg total) by mouth 3 (three) times daily. 4 active aprepitant (EMEND) 125 MG capsule Take 1 capsule (125 mg total) by mouth once. 4 025 active sodium chloride (1/2 NS) 0.45 % solution 4 active tirzepatide (MOUNJARO) 10 mg/0.5 mL pen-injector Inject 1 pen(s) (10 mg total) under the skin once a week. 4 active multiple vitamin (M.V.I. Adult) injection 4 active MVI adult (MVI) 3,300 unit- 150 mcg/10 mL injection Inject into the vein daily. (via TPN). 4 active MVI, ADULT NO.1 WITH VITAMIN K 3,300 unit- 150 mcg/10 mL injection 4 active alteplase (CATHFLO ACTIVASE) 2 mg in water for injection, sterile 2 mL intra-catheter solution 2 mg, Intra-Catheter, ONCE, On Sun06/26/25 at 0700, For 1 dose, Instill Alteplase into occluded lumen until resistance is met. If resistance is met, the entire ordered dose will not be instilled into occluded lumen. After 30 minutes, assess for blood return. If blood return is established, withdraw 4 025 completed tirzepatide (MOUNJARO) 2.5 mg/0.5 mL pen-injector Inject 2 pens (5 mg total) under the skin once a week. 4 active amoxicillin (AMOXIL) 250 MG/5ML suspension 10 mL via GJ tube twice daily for 10 days. 4 024 active fenofibrate (TRICOR) 145 mg tablet Take 1 tablet (145 mg total) by mouth daily. 4 active fenofibrate (TRICOR) 145 mg tablet 1 tablet (145 mg total) by Per J Tube route daily. 4 active fenofibrate (TRICOR) 145 MG tablet Take 1 tablet (145 mg total) by mouth daily. 4 active tirzepatide (MOUNJARO) 5 mg/0.5 mL pen-injector Inject 1 pen(s) (5 mg total) under the skin once a week. 4 active ergocalciferol (DRISDOL) 1,250 mcg (50,000 unit) capsule Take 1 capsule (50,000 Units total) by mouth every 7 days @1800. 4 025 aborted ergocalciferol (DRISDOL) 1,250 mcg (50,000 unit) capsule Take 1 capsule (50,000 Units total) by mouth every 7 days @1800. 4 active ergocalciferol 00952 units Cap Take 1 capsule (50,000 Units total) by mouth once a week. 4 active propranolol 80 mg tablet Take 1 tablet twice a day by oral route. 4 active tirzepatide (MOUNJARO) 2.5 mg/0.5 mL pen-injector Inject 1 pen(s) (2.5 mg total) under the skin once a week. 4 active cefTRIAXone (ROCEPHIN) 1 g in sodium chloride 0.9% PF 0.9% 10 mL (100 mg/mL) 10 mLs (1 g total) by IV Push route daily. 4 active melatonin tablet 3 mg 3 mg, Oral, Nightly PRN, insomnia, Starting on Sun08/22/23 at 2202Recommended to administer at least 60 minutes prior to intended bedtime 4 024 aborted buprenorphine (BUTRANS) 20 mcg/hour weekly transdermal 20 mcg 20 mcg, Transdermal, Administer over 7 Days, Weekly, First dose on Sun08/22/23 at 0900, For 7 daysApply patch labeled buprenorphine transdermal to dry, clean, unshaven and hairless area (upper arm or chest). Avoid touching the sticky side of the buprenorphine patch. Common Side Effects: confusio 4 024 aborted sodium chloride 0.9% infusion 100 mL/hr, Intravenous, CONTINUOUS, Starting on Sun08/22/23 at 1315, For 24 hours 4 completed zolpidem (AMBIEN) tablet 5 mg 5 mg, Oral, ONCE, On Sun08/22/23 at 2215, For 1 doseCommon Side Effects: Drowsiness, dizziness, headache, sleep disturbances. 4 completed melatonin tablet 6 mg 6 mg, Oral, ONCE, On 08/20/23 at 0130, For 1 doseRecommended to administer at least 60 minutes prior to intended bedtime 4 completed ethyl alcohol 62 % nasal swab 1 Swab 1 Swab, Nasal, Every 12 Hours Scheduled, First dose on 08/18/23 at 32508) Clean inside of both nostrils with a tissue. 2) Insert swab into right nostril and rotate for 30 seconds. 3) Repeat swab procedure in left nostril. 4) Do not blow nose. If solution drips, gently wipe with a tissue. Do no 4 aborted ondansetron (ZOFRAN-ODT) disintegrating tablet 8 mg 8 mg, Translingual, EVERY 8 HOURS PRN, nausea or vomiting, Starting on Sun08/18/23 at 1430Common Side Effects: Lightheaded, stomach upset, headache. aborted tiZANidine (ZANAFLEX) tablet 4 mg 4 mg, Oral, 3 Times Daily Scheduled, First dose on Sun08/17/23 at 2115OP SIG:Take 1 tablet (4 mg total) by mouth 3 (three) times daily. 4 aborted heparin (PORCINE) injection 5,000 Units 5,000 Units, Subcutaneous, Every 8 Hours Scheduled, First dose on Sun08/18/23 at 0600For VTE Prophylaxis, administer dose as SC. For Heparin Infusion Protocol bolus, administer dose as IV Push undiluted over 1 minute. RECOMMENDED monitoring includes: Bleeding. Common Side Effects include bruising a 4 aborted prochlorperazine edisylate (COMPAZINE) injection 10 mg 10 mg, IV Push, EVERY 6 HOURS PRN, nausea or vomiting, Starting on Sun08/17/23 at 2044IM Route preferred. May be administered by slow IV push by direct IV injection at a rate not to exceed 5 mg/minute. To reduce the risk of hypotension, patients receiving IV prochlorperazine must remain lying down 4 aborted sodium chloride 0.9% large volume syringe for autoinjector 60 mL 60 mL, Intravenous, IMG ONCE PRN, other, Imaging, Starting on 08/18/23 at 1727, For 1 dose 4 completed diphenhydrAMINE (BENADRYL) injection 50 mg 50 mg, IV Push, ONCE, On Sun08/17/23 at 0915, For 1 doseMaximum IV Push dose of 50 mg. If ordered IV Push, administer undiluted at a rate of 25 mg over 1 minute. RECOMMENDED monitoring includes: Mental Status. Common Side Effects: Drowsiness, stomach upset, confusion and dry mouth. This drug may be 4 completed famotidine (PF) (PEPCID) 40 mg in sodium chloride 0.9% PF 10 mL Injection 40 mg, IV Push, ONCE, On Sun08/17/23 at 0915, For 1 doseMaximum IV Push dose of 40 mg. Dilute to a final concentration of 4 mg/mL with ordered diluent and administer over 2 minutes. Common Side Effects include: Dizziness, headache, stomach upset and confusion.Pharmacist will implement Pharmacist 4 completed ketorolac (TORADOL) injection 7.5 mg 7.5 mg, IV Push, ONCE, On Sun08/17/23 at 0700, For 1 doseMaximum IV Push dose of 30 mg. If ordered IV Push, administer undiluted over 15 seconds. Common Side Effects include stomach upset, dizziness and increased bleeding risk. Maximum duration of therapy is 5 days. This drug may be automatically 4 completed sodium chloride 0.9 % (new bag) bolus 1,000 mL 1,000 mL, Intravenous, Administer over 60 Minutes, ONCE, On Sun08/17/23 at 0645, For 1 dose 4 completed potassium chloride ER 8 mEq tablet,extended release TAKE 1 TABLET TWICE A DAY 4 completed hydralazine 25 mg tablet Take 1 tablet twice a day by oral route. 4 completed famotidine 10 mg tablet Take 1 tablet every day by oral route. 4 active Vancomycin MAR Level [Order 1 Start] Nam e: Vancomycin MAR Level Signed Summary: ONCE, 1 dose, On 06/27/25 at 0930, RN, please chart against this order after level is drawn. [Order 1 End] [Order 2 Start] Name: Vancomycin, trough Signed Summary: Timed, On 06/27/25 at 0930, For 1 occurrence, Release to patient: Imm 3 025 aborted CATHFLO ACTIVASE 2 mg injection 3 active fluticasone (FloNASE) 50 mcg/spray nasal spray 2 sprays into each nostril daily. 3 023 active predniSONE (DELTASONE) 20 MG tablet Take 1 tablet (20 mg total) by mouth daily. With food. 3 023 active azithromycin (ZITHROMAX) 250 MG tablet Take 2 tablets by mouth on day 1 followed by 1 tablet by mouth daily on days 2 through 5. 3 active sildenafil (VIAGRA) 100 MG tablet TAKE 1 TABLET (100 MG TOTAL) BY MOUTH DAILY NEEDED FOR ERECTILE DYSFUNCTION (PER EVENT). 3 active cyproheptadine (PERIACTIN) 4 MG tablet TAKE 1 TABLET (4 MG TOTAL) BY MOUTH 3 (THREE) TIMES A DAY NEEDED (NAUSEA). 3 024 active oxyCODONE (ROXICODONE) 10 mg immediate release tablet Take 1 tablet (10 mg total) by mouth 3 times daily (every 8 hours) as needed for severe pain. Max Daily Amount: 30 mg 3 025 active Buprenorphine (BUTRANS) 20 MCG/HR weekly patch Place 1 patch on the skin every 7 days. Max Daily Amount: 1 patch 3 025 active testosterone cypionate (DEPO-TESTOSTERONE CYPIONATE) 200 mg/mL injection INJECT 0.75ML INTO THE MUSCLE EVERY 3 DAYS 3 024 active ondansetron (ZOFRAN-ODT) disintegrating tablet 4 mg 4 mg, Oral, EVERY 8 HOURS PRN, nausea or vomiting, First Line Therapy, Starting on Sun05/02/23 at 0649Common Side Effects: Lightheaded, stomach upset, headache. 3 023 aborted ondansetron (PF) (ZOFRAN) injection 4 mg 4 mg, IV Push, ONCE, On Sun08/17/23 at 0600, For 1 doseMaximum IV Push dose of 16 mg. If ordered IV Push, administer undiluted over 2 minutes. Common side effects include: lightheaded, stomach upset, and headache. Irritant 3 024 completed amitriptyline (ELAVIL) tablet 100 mg 100 mg, Per J Tube, Nightly, First dose on Sun05/01/23 at 0130OP SI tablet (150 mg total) by Per J Tube route at bedtime. 3 023 aborted dextrose 5 % lactated ringers infusion 1,000 mL, at 75 mL/hr, Intravenous, CONTINUOUS, Starting on Sun05/01/23 at 0130 3 023 aborted lansoprazole (PREVACID) oral suspension (3 mg/mL) 30 mg 30 mg, Per J Tube, 2 Times Daily Scheduled, First dose on Sun05/01/23 at 0900Common Side Effects: Stomach upset, headache, nausea.Reason for Use (RFU): Treatment for GERD refractory to H2 Blockers 3 023 aborted propranoloL (INDERAL) Immediate Release tablet 80 mg 80 mg, Per J Tube, 2 Times Daily Scheduled, First dose on Sun05/01/23 at 0900Common Side Effects: Fatigue, dizziness, hypotension, bradycardia. 3 023 aborted amitriptyline (ELAVIL) 25 MG tablet Week 1-Take 4 tablets by mouth nightly Week 2- Take 3 Tablets by mouth nighty Week 3- Take 2 tablets by mouth nightly Week 4- Take 1 tablet by mouth nightly then off 3 023 active D5 NS infusion 100 mL/hr, Intravenous, CONTINUOUS, Starting on Sun03/28/23 at 2115 3 023 aborted barium sulfate (Liquid EZ Paque) suspension 355 mL 355 mL, Oral, IMG ONCE PRN, other, Starting on Sun03/28/23 at 1743, For 1 dose 3 023 aborted barium sulfate (Liquid EZ Paque) suspension 60 mL 60 mL, Oral, IMG ONCE PRN, other, Starting on Sun03/28/23 at 1108, For 1 dose 3 023 completed prucalopride Tab 2 mg 2 mg, Oral, Daily, First dose on Sun03/27/23 at 0900 3 023 aborted cefTRIAXone (ROCEPHIN) 2 g in sodium chloride 0.9% PF 20 mL (100 mg/mL) 2 g (rounded from 2,000 mg), IV Push, EVERY 24 HOURS, First dose (after last modification) on Sun03/28/23 at 1130Intravenous ceftriaxone must not be infused through the same line as calcium containing fluids (including calcium gluconate, calcium chloride, Lactated Ringers, total parenteral nutritio 3 023 aborted cefTRIAXone (ROCEPHIN) 1 g in sodium chloride 0.9% PF 10 mL (100 mg/mL) 1 g (rounded from 1,000 mg), IV Push, EVERY 24 HOURS, First dose on 08/18/23 at 1445Intravenous ceftriaxone must not be infused through the same line as calcium containing fluids (including calcium gluconate, calcium chloride, Lactated Ringers, total parenteral nutrition, dialysis solutions). Ir 3 024 aborted nystatin (MYCOSTATIN) 100,000 unit/mL suspension Take 5 mLs (500,000 Units total) by mouth 4 (four) times daily for 4 days. 3 023 active dextrose (GLUCOSE) oral liquid 15 g [Order 1 Start] Name: dextrose (GLUCOSE) oral liquid 15 g Signed Summary: 15 g, Oral, EVERY 15 MIN PRN, If blood glucose 50 - 69 mg/dL (or 70 - 79 mg/dL with symptoms of hypoglycemia), Starting on Maribeth 03/22/23 at 2258If alert and able to tolerate enteral intake (not NPO, no vomiting, no gag reflex). 3 aborted dextrose (GLUCOSE) oral liquid 30 g [Order 1 Start] Name: dextrose (GLUCOSE) oral liquid 30 g Signed Summary: 30 g, Oral, EVERY 15 MIN PRN, If blood glucose less than 50 mg/dL, Starting on Maribeth 03/22/23 at 2258If alert and able to tolerate enteral intake (not NPO, no vomiting, no gag reflex). Only administer ONE treatment option. Noti 3 aborted dextrose 10% injection 125 mL 125 mL (12.5 g), Intravenous, Administer over 15 Minutes, EVERY 15 MIN PRN, blood glucose 50 - 69 mg/dL (or 70 -79 mg/dL with symptoms of hypoglycemia), Starting on Maribeth 03/22/23 at 2258Only administer if patient is NOT alert, not cooperative or unable to take enteral (NPO, no vomiting, no gag reflex aborted dextrose 10% injection 250 mL 250 mL (25 g), Intravenous, Administer over 15 Minutes, EVERY 15 MIN PRN, blood glucose less than 50 mg/dL, Starting on Maribeth 03/22/23 at 2258Only administer if patient is NOT alert, not cooperative or unable to take enteral (NPO, no vomiting, no gag reflex). Notify provider and re-check blood glucos 3 aborted glucagon 1 mg in water for injection, sterile 1 mL (1 mg/mL) 1 mg, Intramuscular, ONCE PRN, If blood glucose less than 70 mg/dL (or 70 - 79 mg/dL with symptoms of hypoglycemia), Starting on Maribeth 03/22/23 at 2258, For 1 doseIf ordered IV Push: Administer undiluted (maximum rate: 1 mg/min) Reconstitute glucagon injection with 1ml Sterile Water for Injection imme 3 023 aborted alteplase (CATHFLO ACTIVASE) 2 mg in water for injection, sterile 2 mL intra-catheter solution 2 mg, Intra-Catheter, ONCE, On Sun03/23/23 at 1615, For 1 doseInstill Alteplase into occluded lumen until resistance is met. If resistance is met, the entire ordered dose will not be instilled into occluded lumen. After 30 minutes, assess for blood return. If blood return is established, withdraw 5 3 023 completed acetaminophen (TYLENOL) tablet 650 mg 650 mg, Oral, EVERY 6 HOURS PRN, mild Pain (PIS 1-3), for adult patients may also give for higher pain score per patient preference, temperature > 100.4 F (38 C), Starting on Sun08/17/23 at 2040 3 024 aborted iohexol (OMNIPAQUE) 300 mg/mL oral solution 30 mL in water 900 mL 900 mL, Oral, IMG ONCE PRN, imaging study, Starting on 08/18/23 at 1206, For 1 doseContact Technologist when the patient BEGINS drinking the contrast. This oral contrast agent Omnipaque 300 is suspended in 900 mL of water. It can be flavored using a powdered flavoring agent however, do NOT ben 3 024 completed iohexoL (OMNIPAQUE) 350 mg iodine/mL injection 80 mL 80 mL, Intravenous, IMG ONCE PRN, other, Starting on 08/18/23 at 1727, For 1 doseVesicant agents may cause severe tissue damage, including necrosis, if they extravasate into tissue; Common Side Effects: Headache, nausea, allergic reaction. 3 024 completed dextrose 10 % infusion 50 mL/hr, Intravenous, CONTINUOUS PRN, other, No TPN solution available or central venous catheter line access., Starting on Sun03/28/23 at 99736. Should the central venous catheter be abruptly discontinued; Notify the physician promptly and start a peripheral IV at the previous TPN rate. 2. Should 3 023 aborted senna (SENOKOT) tablet 8.6 mg 8.6 mg (1 tablet), Oral, Nightly, First dose on Sun03/21/23 at 2100Common Side Effects: Diarrhea, discomfort, cramps. 3 023 aborted sodium phosphate 21 mmol in sodium chloride 0.9% 250 mL IVPB 21 mmol, Intravenous, Administer over 3 Hours, ONCE, On Sun03/25/23 at 0845, For 1 dose 3 023 completed magnesium sulfate in water 2 gram/50 mL (4 %) (IVPB) 2 g 2 g, Intravenous, Administer over 1 Hours, ONCE, On Sun03/22/23 at 1130, For 1 doseMagnesium Level 1.1-1.3 mg/dl AND CrCl < 30 mL/min: Replete with Magnesium sulfate 2g IV x 1 dose. 3 023 completed potassium bicarbonate-citric acid (EFFER-K, K-LYTE) effervescent tablet for oral solution 40 mEq 40 mEq, Oral, ONCE, On Sun03/22/23 at 0915, For 1 dosePotassium level 3.0-3.2 mmol/L AND CrCl >/= 30 ml/min; replete with Potassium effervescent tablet 40 mEq. Completely dissolve the effervescent tablet in 3 ounces (90 mL) of water before drinking or administration. 3 023 completed sodium chloride 0.9% large volume syringe for autoinjector 50 mL 50 mL, Intravenous, IMG ONCE PRN, other, Imaging, Starting on Sun03/22/23 at 1244, For 1 dose 3 023 completed doxycycline TAB/CAP 100 mg 100 mg, Oral, ONCE, On Sun08/17/23 at 0915, For 1 doseReason for Use (RFU): Other (Specify)Other reason: MRSA coverage, PICC line infection, allergic reaction to vanco 3 024 completed polyethylene glycol (MIRALAX) packet 17 g 17 g, Oral, Daily, First dose on Sun03/21/23 at 1530For 17g dose: Dissolve in 4 - 8 oz of water, juice, soda, coffee, or tea. For BOWEL PREP FOR COLONOSCOPY/FLEX SIG: Dissolve 119g (7 packets) in 32 ounces of clear sports drink or other clear liquid Common Side Effects: Diarrhea, discomfort, cramp 3 023 aborted Sulfur hexafluoride Microspheres (LUMASON) Intravenous suspension 4 mL, Intravenous, IMG ONCE PRN, other, Starting on Sun03/20/23 at 1434, For 1 dose, Procedural ImagingAdminister 2 ml over 10 seconds and an additional 2 mL as needed. NOT to exceed 4 mL. IV line flushed with 10 mL of NS.Reason for use (RFU): Visualization of the endocardium 3 023 completed chlorhexidine gluconate (HIBICLENS/BETASEPT) 4 % topical liquid Topical (Top), Daily, First dose on 08/18/23 at 1700Apply from the neck down for daily bathing. Do not apply to head or face (including mouth, eyes, or nose), internal genital membranes, and/or wounds that involve more than the superficial layer of the skin. For patients with an indwelling urina 3 024 aborted prochlorperazine edisylate (COMPAZINE) injection 5 mg 5 mg, IV Push, EVERY 6 HOURS PRN, nausea or vomiting, Starting on Sun05/01/23 at 0916Maximum IV Push dose of 10 mg. If ordered IV Push, administer undiluted at a rate of 5 mg over 1 minute. RECOMMENDED monitoring for First Dose ONLY includes: BP Q15 minutes x 1. RECOMMENDED monitoring for all dose 3 023 aborted sodium chloride 0.9 % flush 10 mL 10 mL, Intra-Catheter, Every 24 Hours Scheduled (Daily), First dose on Maribeth 03/29/23 at 0900For Capped Lumen Only Flush using a pulsatile, push pause technique 3 023 aborted sodium chloride 0.9 % flush 20 mL 20 mL, Intra-Catheter, PRN for Line Care, other, After Blood Specimen Sampling, Starting on Sun03/28/23 at 1729Flush using a pulsatile, push pause technique 3 023 aborted piperacillin-tazobac huang (ZOSYN) 4.5 g in sodium chloride 0.9% 100 mL (mini-bag plus) 4.5 g, Intravenous, at 33.3 mL/hr, EVERY 6 HOURS, First dose (after last reorder) on Sun03/23/23 at 1100, For 3 daysFor all [facility], &, [facility] & [place]): Infuse over 180 minutes. For the ED, OR and Outpatient Clinics: Infuse over 30 minutes. For patients receiving Hemodia 3 023 aborted enoxaparin (LOVENOX) syringe 40 mg 40 mg, Subcutaneous, Every 24 Hours Scheduled (Daily), First dose on Sun08/19/23 at 0900Contraindicated with epidural use. Common Side Effects: Bruising, minor and major bleeding. 024 aborted pantoprazole (PROTONIX) EC tablet 40 mg 40 mg, Oral, Every 12 Hours Scheduled, First dose on Sun08/17/23 at 2115Give with food. Common Side Effects: Stomach upset, headache, nausea.Reason for Use (RFU): Treatment for GERD refractory to H2 Blockers 3 024 aborted propranoloL (INDERAL) Immediate Release tablet 80 mg 80 mg, Oral, 2 Times Daily Scheduled, First dose (after last modification) on 08/18/23 at 0900Common Side Effects: Fatigue, dizziness, hypotension, bradycardia. 024 aborted rosuvastatin (CRESTOR) tablet 5 mg 5 mg, Oral, Daily, First dose on Sun08/18/23 at 0900Common side effects are nausea, headache, muscle pain or weakness. 024 aborted sodium chloride 0.9 % flush 3 mL 3 mL, IV Push, PRN for Line Care, other, PIV Line Care: Before and after administration of intravenous fluids, medications and blood products and/or blood specimen collection; As needed to assess catheter patency, Starting on Sun08/17/23 at 2038 024 aborted D5 1/2 NS infusion 100 mL/hr, Intravenous, CONTINUOUS, Starting on Sun08/17/23 at 2330, For 5 days 3 024 aborted zolpidem (AMBIEN) tablet 10 mg 10 mg, Oral, ONCE, On Sun08/19/23 at 0115, For 1 doseCommon Side Effects: Drowsiness, dizziness, headache, sleep disturbances. 024 completed vancomycin (VANCOCIN) 1.5 g in sodium chloride 0.9% 500 mL IVPB (vialmate) 1.5 g, Intravenous, Administer over 90 Minutes, EVERY 12 HOURS, First dose on Sun08/17/23 at 0700, For 2 dosesCommon Side Effects: Stomach upset, hypotension, flushing, rash. Irritant; Activate prior to use via vialmate. Common Side Effects: Stomach upset, hypotension, flushing, rash.Reason for Us 3 024 aborted buprenorphine (BUTRANS) 15 mcg/hour weekly transdermal 1 patch 1 patch, Transdermal, Administer over 7 Days, Weekly, First dose on Sun05/04/23 at 0900Apply patch labeled buprenorphine transdermal to dry, clean, unshaven and hairless area (upper arm or chest). Avoid touching the sticky side of the buprenorphine patch. Common Side Effects: confusion, nausea, 3 023 aborted Adult, adolescent, and children 11 years of age and older or 40 kg or greater parenteral nutrition FOR CENTRAL ADMINISTRATION ONLY. Note: Calcium is timed for administration while TPN is not infusing, therefore calcium included in TPN formulation. Vesicant agents may cause severe tissue damage, including necrosis, if they extravasate into tissue. FILTER using a 1.2 micron in-line filter at time 3 023 aborted amitriptyline (ELAVIL) tablet 150 mg 150 mg, Oral, Nightly, First dose on 03/17/23 at 0430OP SIG:Take 1 tablet (150 mg total) by mouth at bedtime. 3 023 aborted metoclopramide HCl (REGLAN) tablet 10 mg [Order 1 Start] Name: metoclopramide HCl (REGLAN) tablet 10 mg Signed Summary: 10 mg, Oral, EVERY 6 HOURS PRN, nausea or vomiting, Starting on 03/17/23 at 0413Second line therapy. Give only if inadequate response to first line therapy after 15 minutes with IV, 30 minutes with oral, or 60 minute 3 023 aborted ondansetron (ZOFRAN-ODT) disintegrating tablet 4 mg [Order 1 Start] Name: ondansetron (ZOFRAN-ODT) disintegrating tablet 4 mg Signed Summary: 4 mg, Oral, EVERY 6 HOURS PRN, nausea or vomiting, Starting on 03/17/23 at 0412First line therapy. Common Side Effects: Lightheaded, stomach upset, headache. [Order 1 End] [Order 2 Start] Name: ondansetro 3 023 aborted tiZANidine (ZANAFLEX) tablet 4 mg 4 mg, Oral, EVERY 8 HOURS PRN, muscle spasms, Starting on Sun05/01/23 at 1257OP SIG:Take 1 tablet (4 mg total) by mouth 3 (three) times daily. 3 023 aborted zolpidem (AMBIEN) 10 mg tablet 1 tablet (10 mg total) nightly. Per J tube 3 active zolpidem (AMBIEN) 10 mg tablet Take 1 tablet (10 mg total) by mouth nightly. 3 active amitriptyline (ELAVIL) 150 MG tablet TAKE 1 TABLET BY MOUTH EVERY DAY AT NIGHT 3 023 active OZEMPIC 0.25 mg or 0.5 mg (2 mg/3 mL) pen injector Inject 0.5 mg under the skin once a week. 3 023 aborted sildenafiL (VIAGRA) 100 mg tablet Take 1 tablet (100 mg total) by mouth daily as needed. 3 023 aborted semaglutide (OZEMPIC) (0.25 or 0.5 mg/dose pen) prefilled pen injection Inject 0.5 mg under the skin once a week. 3 active potassium chloride (K-TAB,KLOR-CON) 8 MEQ extended release tablet Take 1 tablet (8 mEq total) by mouth 2 (two) times daily. 3 023 active atorvastatin (LIPITOR) 10 mg tablet 1 tablet (10 mg total) by Per J Tube route daily. 3 active atorvastatin (LIPITOR) 10 mg tablet 1 tablet (10 mg total) by Per J Tube route daily. 3 active Buprenorphine (BUTRANS) 15 MCG/HR weekly patch Place 1 patch on the skin every 7 days. Max Daily Amount: 1 patch 3 023 active trace elements Zn-Cu-Mn-Se, Tralement, (TRALEMENT) 3 mg-0.3 mg-55 mcg-60 mcg/mL Soln Inject into the vein daily. 3 active trace elements Zn-Cu-Mn-Se, Tralement, (TRALEMENT) 3 mg-0.3 mg-55 mcg-60 mcg/mL Soln by Per J Tube route daily. via TPN. 3 active Tralement [id number] MCG/ML injection 3 active Motegrity 2 MG tablet TAKE 1 TABLET BY MOUTH EVERY DAY 3 024 active MOTEGRITY 2 mg Tab Take 1 tablet (2 mg total) by mouth daily. 3 active ondansetron (ZOFRAN) 4 mg tablet Take 1 tablet (4 mg total) by mouth every 8 (eight) hours as needed for nausea or vomiting. 3 active amitriptyline (ELAVIL) 150 mg tablet 1 tablet (150 mg total) by Per J Tube route at bedtime. 3 024 active levoFLOXacin (LEVAQUIN) 750 MG tablet Take 1 tablet (750 mg total) by mouth every 24 hours around the clock. Please start taking on 01/27/23, you received your first dose in the hospital. Do not start before January 27, 2023. 3 023 active acetaminophen (TYLENOL) 325 MG tablet Take 2 tablets (650 mg total) by mouth every 6 (six) hours around the clock. 3 023 active famotidine (PEPCID) 20 MG tablet TAKE 1 TABLET TWICE A DAY 3 023 active famotidine (PEPCID) tablet 20 mg 20 mg, Per J Tube, 2 Times Daily (2100, 0600), First dose on 03/17/23 at 0600Common Side Effects: Dizziness, headache, stomach upset, confusion.Pharmacist will implement [facility] Renal Dose Adjustment Protocol unless otherwise specified: Implement ProtocolProtocol: [email or web address] 3 023 aborted famotidine (PEPCID) 20 mg tablet 1 tablet (20 mg total) by Per J Tube route 2 (two) times daily. 3 active tapentadoL (NUCYNTA) 50 mg tablet Take 1 tablet (50 mg total) by mouth 2 (two) times daily as needed. 3 active buprenorphine (BUTRANS) 10 mcg/hr weekly patch Place 1 patch on the skin every 7 days. Max Daily Amount: 1 patch 3 023 active propranolol ER 160 mg capsule,24 hr,extended release TAKE 1 CAPSULE DAILY 02 3 024 completed omeprazole (PRILOSEC) 40 mg capsule 1 capsule (40 mg total) by Per J Tube route 2 (two) times daily. 3 active OMEprazole (PriLOSEC) 40 MG capsule TAKE 1 CAPSULE TWICE A DAY 3 active atorvastatin (LIPITOR) 10 MG tablet TAKE 1 TABLET DAILY 3 active tapentadol (NUCYNTA) 50 MG tablet Take 1 tablet (50 mg total) by mouth 3 times daily (every 8 hours) as needed for severe pain. Max Daily Amount: 150 mg 3 025 active amitriptyline (ELAVIL) 150 MG tablet Take 1 tablet (150 mg total) by mouth nightly. 3 023 active metoclopramide HCl (REGLAN) tablet 10 mg 10 mg, Per J Tube, 2 Times Daily, First dose on Sun05/01/23 at 0130Pharmacist will implement [facility] Renal Dose Adjustment Protocol unless otherwise specified: Implement ProtocolProtocol: [email or web address] 20Repository/Renal%20 Dose%20Adjustment%20P rotocol/Renal%20Dose% 20Adjus 3 023 aborted Fiber (Banatrol TF) Liquid 1 packet by Feeding Tube route 3 (three) times a day. 3 023 aborted loperamide (IMODIUM A-D) 2 MG capsule Take 1 capsule (2 mg total) by mouth 4 times daily (every 6 hours) as needed for diarrhea. 3 023 active oxyCODONE (ROXICODONE) Immediate Release tablet 10 mg 10 mg, Oral, EVERY 8 HOURS PRN, moderate Pain (PIS 4-6), for adult patients may also give for higher pain score per patient preference, moderate to severe pain, Starting on Sun08/17/23 at 2319, For 168 hoursCommon Side Effects: Confusion, nausea, vomiting, drowsiness, constipation, breathing proble 3 024 aborted oxyCODONE (ROXICODONE) 5 MG immediate release tablet Take 1 tablet (5 mg total) by mouth 4 times daily (every 6 hours) as needed. 3 023 active oxyCODONE (ROXICODONE) Immediate Release tablet 5 mg 5 mg, Oral, ONCE, On Sun05/02/23 at 0315, For 1 doseCommon Side Effects: Confusion, nausea, vomiting, drowsiness, constipation, breathing problems. 3 023 completed gabapentin (NEURONTIN) 100 MG capsule 2 capsules (200 mg total) by G Tube route 3 (three) times a day. 3 023 active amlodipine 10 mg tablet TAKE 1 TABLET BY MOUTH EVERY DAY 3 024 completed Nutritional Supplements (Compleat Standard 1.4) Liquid Take 1 Can by mouth 6 (six) times a day. Use 30 ml free water before administration and 150 ml free water after administration. 3 023 active metoCLOPRAMIDE (REGLAN) 10 MG tablet Take 1 tablet (10 mg total) by mouth 3 times daily (every 8 hours) as needed. 3 023 active metoCLOPRAMIDE (REGLAN) 10 MG tablet TAKE 1 TABLET BY MOUTH EVERY 6 HOURS NEEDED FOR NAUSEA/VOMITING 3 active potassium chloride (KLOR-CON) 8 MEQ tablet 3 active gadobutrol (GADAVIST) injection 9 mL 9 mL, Intravenous, Once in imaging, contrast, Starting on 08/14/22 at 1411, For 1 dose, Radiology Appointment 3 023 completed mirtazapine (REMERON JOSSY-TAB) 15 MG disintegrating tablet Take 1 tablet (15 mg total) by mouth nightly. 2 023 active erythromycin (AAMIR-TAB) 500 MG EC tablet Take 1 tablet (500 mg total) by mouth every 8 (eight) hours around the clock. 2 023 active acetaminophen (TYLENOL) 325 MG tablet Take 3 tablets (975 mg total) by mouth 4 times daily (every 6 hours) as needed for moderate pain or headaches. 2 023 active tamsulosin (FLOMAX) 0.4 MG capsule Take 1 capsule (0.4 mg total) by mouth daily. 2 023 active oxyCODONE-acetaminop hen (PERCOCET) 5-325 mg per tablet TAKE 1-2 TABLETS BY MOUTH EVERY 4 TO 6 HOURS NEEDED FOR SEVERE PAIN -MAX 8 DAILY NO EXTRA TYLENOL 2 022 aborted oxyCODONE-acetaminop hen (PERCOCET) 5-325 mg per tablet Take 1-2 tablets by mouth every 4 (four) hours as needed. 2 active zolpidem (AMBIEN) 10 MG tablet TAKE 1 TABLET BY MOUTH EVERY DAY AT NIGHT 2 active lubiprostone (AMITIZA) 8 MCG capsule Take 1 capsule (8 mcg total) by mouth 2 (two) times a day with meals. 2 active linaclotide (LINZESS) 145 MCG Cap capsule Take 1 capsule (145 mcg total) by mouth every morning before breakfast. 2 023 active tiZANidine (ZANAFLEX) 4 MG tablet TAKE 1 TABLET BY MOUTH 3 TIMES A DAY. 2 024 active tamsulosin (FLOMAX) 24 hr capsule 0.4 mg 0.4 mg, Oral, Daily, First dose on Sun05/01/23 at 0130Swallow whole or capsule may be opened and contents sprinkled on small amount of soft food (i.e. pudding, applesauce) and administered immediately (do not store or chew). Do not crush pellets if given via feeding tube.Reason for Use (RFU): Alberto 2 024 aborted sulfamethoxazole-tri methoprim (BACTRIM DS,SEPTRA DS) 800-160 MG per tablet Take 1 tablet by mouth 2 (two) times a day. 2 022 active prucalopride succinate (MOTEGRITY) 2 MG tablet Take 1 tablet (2 mg total) by mouth daily. 2 023 active zolpidem (AMBIEN) 10 MG tablet Take 1 tablet (10 mg total) by mouth nightly. 2 active ondansetron (ZOFRAN) 4 MG tablet TAKE 1 TABLET BY MOUTH THREE TIMES A DAY EVERY 8 HOURS NEEDED FOR NAUSEA AND VOMITING 2 023 active sucralfate (CARAFATE) 1 g tablet TAKE 1 TABLET BY MOUTH EVERY DAY IN THE MORNING ON AN EMPTY STOMACH 2 active meloxicam (MOBIC) 15 MG tablet Take 15 mg by mouth daily. 2 active tiZANidine (ZANAFLEX) 2 MG tablet TAKE 1 TABLET BY MOUTH EVERY 6 HOURS NEEDED FOR MUSCLE SPASMS FOR UP TO 10 DAYS. 2 active OMEprazole (PriLOSEC) 40 MG capsule Take 1 capsule (40 mg total) by mouth 2 (two) times a day. 2 023 active proMETHAZINE (PHENERGAN) 12.5 MG tablet TAKE 1 TABLET (12.5 MG TOTAL) BY MOUTH EVERY 4 (FOUR) HOURS NEEDED FOR NAUSEA OR VOMITING. 2 active sildenafil (VIAGRA) 100 MG tablet Take 1 tablet (100 mg total) by mouth daily as needed for erectile dysfunction (per event). 2 active famotidine (PEPCID) 20 MG tablet TAKE 1 TABLET NIGHTLY 2 active tamsulosin (FLOMAX) 0.4 MG capsule TAKE 1 CAPSULE BY MOUTH EVERY DAY 2 022 active morphine (MS CONTIN) 30 MG ER (extended release) tablet TAKE 1 TABLET (30 MG TOTAL) BY MOUTH 2 (TWO) TIMES A DAY MAX DAILY AMOUNT: 60 MG 2 active oxyCODONE (ROXICODONE) 10 mg immediate release tablet TAKE 1 TABLET BY MOUTH EVERY 4 HOURS NEEDED FOR MODERATE (4-6) TO SEVERE PAIN (7-10) 2 suspended amLODIPine (NORVASC) 10 MG tablet Take 0.5 tablets (5 mg total) by mouth daily. 2 active liraglutide -weight management (SAXENDA) 18 MG/3ML prefilled pen injection Inject 3 mg under the skin daily. 2 active spacer for MDI (Aerochamber/Breathe Rite/Ellipse) Device Use as instructed 1 023 active atorvastatin (LIPITOR) 10 MG tablet Take 1 tablet (10 mg total) by mouth daily. 1 active gabapentin (NEURONTIN) 800 MG tablet Take 1 tablet (800 mg total) by mouth 4 (four) times a day. 1 active eluxadoline (VIBERZI) 100 MG tablet Take 1 tablet (100 mg total) by mouth 2 (two) times a day with meals. 1 022 active chlorthalidone 25 mg tablet TAKE ONE TABLET DAILY 1 023 completed propranolol (INDERAL LA) 160 MG SR capsule Take 1 capsule (160 mg total) by mouth nightly. 0 active clonidine 0.1 mg/24 hr weekly transdermal patch Apply 1 patch every week by transdermal route. 0 023 completed clonidine 0.3 mg/24 hr weekly transdermal patch Apply 1 patch every week by transdermal route. 0 023 completed clonidine 0.2 mg/24 hr weekly transdermal patch Apply 1 patch every week by transdermal route. 0 020 completed potassium chloride (KLOR-CON) 8 MEQ tablet Take 1 tablet (8 mEq total) by mouth 2 (two) times a day. 0 023 suspended propranolol ER 80 mg capsule,24 hr,extended release Take 1 capsule every day by oral route. 0 020 completed Diovan 160 mg tablet 1 (one) Oral daily 8 018 completed metoprolol tartrate 50 mg tablet 1 (one) Oral two times daily 8 018 completed zolpidem 10 mg tablet 1 Oral daily 8 active Synthroid 25 mcg tablet Oral daily 8 020 completed sildenafil (pulmonary hypertension) 20 mg tablet Oral as needed 8 020 completed ibuprofen (ADVIL,MOTRIN) 200 mg tablet Take 4 tablets (800 mg total) by mouth every 12 (twelve) hours as needed for pain. 025 aborted amitriptyline 150 mg tablet Take 1 tablet every day by oral route. 024 completed gabapentin 600 mg tablet TAKE 1 TABLET (600 MG) BY ORAL ROUTE 4 TIMES PER DAY 024 completed sucralfate 024 completed ondansetron (ZOFRAN) 4 MG tablet Take 1 tablet (4 mg total) by mouth 3 times daily (every 8 hours) as needed for nausea or vomiting. 023 active amlodipine 5 mg tablet Take 1 tablet every day by oral route. 023 completed Belbuca [address] 1 FILM (150 MCG) AGAINST THE INSIDE OF THE CHEEK, HOLDING IN PLACE FOR 5 SECONDS, BY BUCCAL ROUTE 2 TIMES PER DAY 023 completed Victoza 3-Angelo 023 completed losartan 25 mg tablet Take 2 tablets every day by oral route. 020 completed propranolol 80 mg tablet active propranolol 40 mg/5 mL (8 mg/mL) oral solution active aprepitant 125 mg capsule TAKE 1 CAPSULE (125 MG) BY ORAL ROUTE 1 HOUR PRIOR TO CHEMOTHERAPY active Mestinon 60 mg/5 mL oral syrup Take 3 mL every 8 hours by oral route. active Multiple Vitamin tablet 1 daily active omega-3 acid ethyl esters 1 gram capsule Oral daily completed omeprazole 40 mg capsule,delayed release Take 1 capsule every day by oral route. active oxycodone 5 mg tablet Take 2 tablets twice a day by oral route. active Pazeo 0.7 % eye drops Ophthalmic completed promethazine 12.5 mg tablet Take 1 tablet 4 times a day by oral route. active testosterone cypionate 200 mg/mL intramuscular oil 100 mg Intramuscular every third day active Vitamin D3 25 mcg (1,000 unit) tablet 1000 U Oral daily completed buprenorphine (BUTRANS) 20 mcg/hour transdermal patch Place 1 patch onto the skin once a week. On Fridays active esketamine (SPRAVATO) 28 mg nasal spray Use 28 mg in one nostril every 14 (fourteen) days. active hydrALAZINE (APRESOLINE) 25 mg tablet Take 1 tablet (25 mg total) by mouth 2 times daily (0900, 1700). active lansoprazole (PREVACID SOLUTAB) 30 mg disintegrating tablet 1 tablet (30 mg total) by Per J Tube route daily. active metoclopramide HCl (GIMOTI) 15 mg/spray sprp Use 1 spray in one nostril 4 (four) times daily as needed. active No known medications No known medications active nutritional supplement-fiber ([employer] STANDARD 1.4) 0.06 gram-1.4 kcal/mL Liqd Take 325 mLs by mouth 3 (three) times daily. active oxyCODONE (ROXICODONE) 10 mg Immediate Release tablet 1 tablet (10 mg total) by Per J Tube route every 12 (twelve) hours as needed for pain. active oxyCODONE (ROXICODONE) 10 mg Immediate Release tablet Take 1 tablet (10 mg total) by mouth every 12 (twelve) hours as needed for pain. active polyethylene glycol (miraLAx) 17 g packet Take 1 packet (17 g total) by mouth daily as needed for constipation. active promethazine (PHENERGAN) 12.5 mg tablet Take 1 tablet (12.5 mg total) by mouth every 4 (four) hours as needed (nausea or vomiting). active propranoloL (INDERAL) 80 mg Immediate Release tablet Take 1 tablet (80 mg total) by mouth 2 (two) times daily. active propranoloL LA (INDERAL LA) 160 mg 24 hr capsule Take 1 capsule (160 mg total) by mouth nightly. active pyRIDostigmine [place] 60 MG/5ML Solution Take by mouth. active Restasis 0.05 % ophthalmic emulsion Administer 1 drop to both eyes 2 times a day. active tacrolimus (PROGRAF) 5 MG capsule Take 5 mg by mouth twice daily (every 12 hours). active testosterone cypionate (DEPO-TESTOSTERONE CYPIONATE) 200 mg/mL injection Inject 0.75 mL (150 mg total) into the shoulder, thigh, or buttocks every 3 (three) days. active testosterone cypionate (DEPOTESTOTERONE CYPIONATE) 200 mg/mL injection Inject 0.75 mLs (150 mg total) into the muscle every 3 (three) days. active testosterone cypionate (DEPOTESTOTERONE CYPIONATE) 200 mg/mL injection Inject 0.75 mLs (150 mg total) into the muscle every 3 (three) days. active Allergies Allergen Reaction Severity Comment Documented Date Source Statu s VANCOMYCIN LIP SWELLING 08/17/2023 [facility] activ e BEE VENOM ANAPHYLAXIS 04/04/2019 [facility] active PERTUSSIS VACCINES OTHER (SEE COMMENTS) Paralysis 08/28/2015 [facility] active Problems Problem Status Onset Date Problem Type Date of Resolution Source Obesity (BMI 30.0-34.9) active 2013-08-26 [facility]Act [facility] Pain from implanted hardware active 2021-09-26 ProblemAct [facility] Mixed hyperlipidemia active 2013-08-26 ProblemAct [facility] ADD (attention deficit disorder) active 2020-08-14 ProblemAct [facility] Current moderate episode of major depressive disorder without prior episode active 2024-09-26 ProblemAct [facility] Hypertension active 2016-08-11 ProblemAct [facility] Complex regional pain syndrome type 2 of left upper extremity active 2021-09-26 ProblemAct [facility] Intractable nausea and vomiting active 2022-11-01 ProblemAct [facility] Obstructive sleep apnea on CPAP active 2017-01-23 ProblemAct [facility] Dysautonomia active 2024-07-04 ProblemAct [facility] Encounter for long-term opiate analgesic use active EncounterDiagnosisAct [facility] Gastroparesis active 2022-07-13 ProblemAct [facility] Complex regional pain syndrome type 1 of left upper extremity active 2021-07-25 ProblemAct [facility] Chronic tension-type headache, intractable active 2019-11-25 ProblemAct [facility] Acquired deviated nasal septum active 2019-02-26 ProblemAct [facility] On total parenteral nutrition (TPN) active 2022-11-09 ProblemAct [facility] Moderate malnutrition active 2022-07-16 ProblemAct [facility] Type 2 diabetes mellitus with hyperglycemia, without long-term current use of insulin active 2023-02-16 ProblemAct [facility] Contact dermatitis and eczema due to plant active 2024-12-20 ProblemAct [facility] Other insomnia active 2014-08-[address] Gastrointestinal tube present active 2022-11-09 ProblemAct [facility] Irritable bowel syndrome active 2019-03-14 ProblemAct [facility] Encounter for therapeutic drug monitoring active EncounterDiagnosisAct [facility] GERD (gastroesophageal reflux disease) active 2022-07-13 ProblemAct [facility] Hardware complicating wound infection active 2021-12-16 ProblemAct [facility] Lymphedema of left upper extremity active 2021-09-26 ProblemAct [facility] Discitis of thoracic region active EncounterDiagnosisAct [facility] Hypogonadism in male active 2020-08-14 ProblemAct [facility] 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 active 2023-12-18 ProblemAct [facility] Gastrojejunostomy tube status (HC Code) active 2024-02-12 ProblemAct [facility] Feeding difficulties active 2025-05-28 ProblemAct [facility] Overweight active 2025-04-13 ProblemAct [facility] Brachial plexus injury active 2023-08-20 ProblemAct [facility] Central line complication, initial encounter active 2023-04-30 ProblemAct [facility] On total parenteral nutrition (TPN) active 2023-06-11 ProblemAct [facility] Thoracic back pain, unspecified back pain laterality, unspecified chronicity active 2025-06-16 ProblemAct [facility] Bacteremia due to Gram-negative bacteria active 2023-08-20 ProblemAct [facility] Vertebral osteomyelitis (HC Code) active 2025-06-25 ProblemAct [facility] Osteomyelitis, unspecified site, unspecified type (HC Code) (HC CODE) active EncounterDiagnosisAct [facility] Gastroparesis active 2023-08-20 ProblemAct [facility] Iron deficiency anemia active 2025-04-07 ProblemAct [facility] Fever in adult active 2023-08-17 ProblemAct [facility] Anxiety active 2017-08-[address] [address] [facility] Adult attention deficit hyperactivity disorder active 2013-08-26 ProblemAct [facility] Palpitations active 2018-03-24 ProblemAct [facility] Malaise active EncounterDiagnosisAct [facility] Breathing-related sleep disorder active 2017-01-23 ProblemAct [facility] Cardiac drug side effects active 2023-09-20 ProblemAct [facility] Liver function tests outside reference range active 2018-01-23 ProblemAct [facility] Back pain, unspecified back location, unspecified back pain laterality, unspecified chronicity active EncounterDiagnosisAct [facility] Essential hypertension active 2019-09-17 ProblemAct [facility] Drug-induced hypokalemia active 2019-12-10 ProblemAct [facility] Hyperlipidemia active 2013-08-26 ProblemAct [facility] Chronic tension-type headache, intractable active 2019-11-25 ProblemAct [facility] Intractable nausea and vomiting active 2022-11-01 ProblemAct [facility] Lymphedema of left upper extremity active 2021-09-26 ProblemAct [facility] Gastroparesis active 2022-07-13 ProblemAct [facility] On total parenteral nutrition (TPN) active 2022-11-09 ProblemAct [facility] Current moderate episode of major depressive disorder without prior episode active 2024-09-26 ProblemAct [facility] Obstructive sleep apnea on CPAP active 2017-01-23 ProblemAct [facility] Hardware complicating wound infection active 2021-12-16 ProblemAct [facility] Obesity (BMI 30.0-34.9) active 2013-08-26 ProblemAct [facility] Hypogonadism in male active 2020-08-14 ProblemAct [facility] Mixed hyperlipidemia active 2013-08-26 ProblemAct [facility] Gastrointestinal tube present active 2022-11-09 ProblemAct [facility] Dysautonomia active 2024-07-04 ProblemAct [facility] Moderate malnutrition active 2022-07-16 ProblemAct [facility] Contact dermatitis and eczema due to plant active 2024-12-20 ProblemAct [facility] Other insomnia active 2014-08-[address] Complex regional pain syndrome type 2 of left upper extremity active 2021-09-26 ProblemAct [facility] GERD (gastroesophageal reflux disease) active 2022-07-13 ProblemAct [facility] Acquired deviated nasal septum active 2019-02-26 ProblemAct [facility] Complex regional pain syndrome type 1 of left upper extremity active 2021-07-25 ProblemAct [facility] ADD (attention deficit disorder) active 2020-08-14 ProblemAct [facility] Type 2 diabetes mellitus with hyperglycemia, without long-term current use of insulin active 2023-02-16 ProblemAct [facility] Irritable bowel syndrome active 2019-03-14 ProblemAct [facility] Hypertension active 2016-08-11 ProblemAct [facility] Pain from implanted hardware active 2021-09-[address] [facility] Immunizations Vaccine Date Source Lot Number Status Covid-19 mRNA Jordon-sucrose S easonal Vaccine - Pfizer 30 mcg/0.3 mL 12 years and older 07/04/[address] [facility] [id number] completed Covid-19 mRNA Jordon-sucrose S easonal Vaccine - Pfizer 30 mcg/0.3 mL 12 years and older 07/04/[address] [facility] [id number] completed Covid-19 mRNA Jordon-sucrose S easonal Vaccine - Pfizer 30 mcg/0.3 mL 12 years and older 07/04/[address] [facility] [id number] completed Covid-19 mRNA Jordon-sucrose S easonal Vaccine - Pfizer 30 mcg/0.3 mL 12 years and older 07/04/[address] [facility] [id number] completed Covid-19 mRNA Jordon-sucrose S easonal Vaccine - Pfizer 30 mcg/0.3 mL 12 years and older 02/29/[address] [facility] [id number] completed Covid-19 mRNA Jordon-sucrose S easonal Vaccine - Pfizer 30 mcg/0.3 mL 12 years and older 02/29/[address] [facility] [id number] completed Covid-19 mRNA Jordon-sucrose S easonal Vaccine - Pfizer 30 mcg/0.3 mL 12 years and older 02/29/[address] [facility] [id number] completed Covid-19 mRNA Jordon-sucrose S easonal Vaccine - Pfizer 30 mcg/0.3 mL 12 years and older 02/29/[address] [facility] [id number] completed Pneumococcal Conjugate 20-Valent 02/29/[address] [facility] [id number] completed Pneumococcal Conjugate 20-Valent 02/29/[address] [facility] [id number] 310 completed Pneumococcal Conjugate 20-Valent 02/29/[address] [facility] [id number] 310 completed Pneumococcal Conjugate 20-Valent 02/29/[address] [facility] HM0 310 completed Influenza, Quadrivalent (FLU ARIX, AFLURIA, FLULAVAL, FLUZONE) Preservative Free IM 08/22/[address] [facility] [id number] completed Influenza, Quadrivalent (FLU ARIX, AFLURIA, FLULAVAL, FLUZONE) Preservative Free IM 08/22/2023 [facility] [id number] completed Influenza, Quadrivalent (FLU ARIX, AFLURIA, FLULAVAL, FLUZONE) Preservative Free IM 08/22/2023 [facility] [id number] completed Influenza, Quadrivalent (FLU ARIX, AFLURIA, FLULAVAL, FLUZONE) Preservative Free IM 08/22/2023 [facility] [id number] completed Influenza, Quadrivalent (FLU ARIX, AFLURIA, FLULAVAL, FLUZONE) Preservative Free IM 08/22/2023 [facility] [id number] completed Influenza, Quadrivalent (FLU ARIX, AFLURIA, FLULAVAL, FLUZONE) Preservative Free IM 08/22/2023 [facility] [id number] completed Influenza, Quadrivalent (FLU ARIX, AFLURIA, FLULAVAL, FLUZONE) Preservative Free IM 06/09/2022 [facility] [id number] completed Influenza, Quadrivalent (FLU ARIX, AFLURIA, FLULAVAL, FLUZONE) Preservative Free IM 06/09/2022 [facility] [id number] completed Influenza, Quadrivalent (FLU ARIX, AFLURIA, FLULAVAL, FLUZONE) Preservative Free IM 06/09/2022 [facility] [id number] completed Influenza, Quadrivalent (FLU ARIX, AFLURIA, FLULAVAL, FLUZONE) Preservative Free IM 06/09/2022 [facility] [id number] completed Influenza, Quadrivalent (FLU ARIX, AFLURIA, FLULAVAL, FLUZONE) Preservative Free IM 06/09/2022 [facility] [id number] completed Influenza, Quadrivalent (FLU ARIX, AFLURIA, FLULAVAL, FLUZONE) Preservative Free IM 06/09/2022 [facility] [id number] completed Influenza, Quadrivalent (FLU CELVAX) MDCK, Preservative Free IM 06/09/2022 [facility] [id number] completed Influenza, Quadrivalent (FLU CELVAX) MDCK, Preservative Free IM 06/09/2022 [facility] [id number] completed Influenza, Quadrivalent (FLU CELVAX) MDCK, Preservative Free IM 06/09/2022 [facility] [id number] completed Influenza, Quadrivalent (FLU CELVAX) MDCK, Preservative Free IM 06/09/2022 [facility] [id number] completed Influenza, Quadrivalent (FLU CELVAX) MDCK, Preservative Free IM 06/09/2022 [facility] [id number] completed Influenza, Quadrivalent (FLU CELVAX) MDCK, Preservative Free IM 06/09/2022 [facility] [id number] completed Influenza, unspecified formulation 05/06/2022 [facility] completed Influenza, unspecified formulation 05/06/2022 [facility] completed Influenza, unspecified formulation 05/06/2022 [facility] completed HPV Nonavalent 02/28/2022 [facility] [id number] completed HPV Nonavalent 02/28/2022 [facility] [id number] completed HPV Nonavalent 02/28/2022 [facility] [id number] completed HPV Nonavalent 02/28/2022 [facility] [id number] completed HPV Nonavalent 02/28/2022 [facility] [id number] completed HPV Nonavalent 02/28/2022 [facility] [id number] completed HPV Nonavalent 08/16/2021 [facility] [id number] completed HPV Nonavalent 08/16/2021 [facility] [id number] completed HPV Nonavalent 08/16/2021 [facility] [id number] completed HPV Nonavalent 08/16/2021 [facility] [id number] completed HPV Nonavalent 08/16/2021 CCT [id number] completed HPV Nonavalent 08/16/2021 [facility] [id number] completed HPV Nonavalent 06/10/2021 [facility] [id number] completed HPV Nonavalent 06/10/2021 [facility] [id number] completed HPV Nonavalent 06/10/2021 [facility] [id number] completed HPV Nonavalent 06/10/2021 [facility] [id number] completed HPV Nonavalent 06/10/2021 [facility] [id number] completed HPV Nonavalent 06/10/2021 [facility] [id number] completed Influenza, injectable, quadr ivalent, preservative free 05/02/2021 [facility] [id number] completed Influenza, injectable, quadr ivalent, preservative free 05/02/2021 [facility] 3PN2B completed Influenza, injectable, quadr ivalent, preservative free 05/02/2021 [facility] [id number] completed Pneumococcal Polysaccharide 23-Valent 05/06/[address] [facility] [id number] completed Pneumococcal Polysaccharide 23-Valent 05/06/[address] [facility] [id number] completed Pneumococcal Polysaccharide 23-Valent 05/06/[address] [facility] [id number] completed Pneumococcal Polysaccharide 23-Valent 05/06/[address] [facility] [id number] completed Pneumococcal Polysaccharide 23-Valent 05/06/[address] [facility] [id number] completed Pneumococcal Polysaccharide 23-Valent 05/06/[address] [facility] [id number] completed Pneumococcal Polysaccharide 23-Valent 05/06/[address] [facility] [id number] completed Influenza Inactivated/Split Preservative Free IM 04/17/[address] [facility] completed Influenza, injectable, quadr ivalent, preservative free 04/17/2020 [facility] [id number] completed Influenza, injectable, quadr ivalent, preservative free 04/17/2020 [facility] [id number] completed Influenza, injectable, quadr ivalent, preservative free 04/17/2020 [facility] [id number] completed Influenza, trivalent, inject able, contains preservative 04/17/2020 [facility] completed Influenza Inactivated/Split Preservative Free IM 06/20/[address] [facility] completed Influenza, injectable, MDCK, quad, preservative free 06/20/2019 [facility] [id number] completed Influenza, injectable, MDCK, quad, preservative free 06/20/2019 [facility] [id number] completed Influenza, injectable, MDCK, quad, preservative free 06/20/2019 [facility] [id number] completed Influenza, Quadrivalent (FLU ARIX, AFLURIA, FLULAVAL, FLUZONE) Preservative Free IM 06/20/[address] [facility] [id number] completed Influenza, Quadrivalent (FLU ARIX, AFLURIA, FLULAVAL, FLUZONE) Preservative Free IM 06/20/[address] [facility] [id number] completed Influenza, Quadrivalent (FLU ARIX, AFLURIA, FLULAVAL, FLUZONE) Preservative Free IM 06/20/[address] [facility] [id number] completed Influenza, Quadrivalent (FLU ARIX, AFLURIA, FLULAVAL, FLUZONE) Preservative Free IM 06/20/[address] [facility] [id number] completed Influenza, Quadrivalent (FLU ARIX, AFLURIA, FLULAVAL, FLUZONE) Preservative Free IM 06/20/[address] [facility] [id number] completed Influenza, Quadrivalent (FLU ARIX, AFLURIA, FLULAVAL, FLUZONE) Preservative Free IM 06/20/[address] [facility] [id number] completed Influenza, Quadrivalent (FLU ARIX, AFLURIA, FLULAVAL, FLUZONE) Preservative Free IM 06/20/[address] [facility] [id number] completed Influenza, trivalent, inject able, contains preservative 06/20/2019 [facility] completed Influenza Inactivated/Split Preservative Free IM 06/11/[address] [facility] completed Influenza, injectable, quadr ivalent, preservative free 06/11/2018 [facility] [id number] completed Influenza, injectable, quadr ivalent, preservative free 06/11/2018 [facility] [id number] completed Influenza, injectable, quadr ivalent, preservative free 06/11/2018 [facility] [id number] completed Influenza, trivalent, inject able, contains preservative 06/11/2018 [facility] completed Influenza Inactivated/Split Preservative Free IM 07/02/[address] [facility] completed Influenza, seasonal trivalen t, (65Yr+) adjuvanted, preservative free 04/17/2017 [facility] [id number] co mpleted Influenza, seasonal trivalen t, adjuvanted, preservative free 04/17/2017 [facility] [id number] completed Influenza, seasonal trivalen t, adjuvanted, preservative free 04/17/2017 [facility] [id number] completed Influenza, injectable, quadr ivalent, preservative free 05/17/2016 [facility] [id number] completed Influenza, injectable, quadr ivalent, preservative free 05/17/2016 [facility] [id number] completed Influenza, injectable, quadr ivalent, preservative free 05/17/2016 [facility] [id number] completed Influenza (AFLURIA/FLUZONE) Inactivated/Split Quadrivalent with Preservative IM 07/12/[address] [facility] [id number] completed Influenza (AFLURIA/FLUZONE) Inactivated/Split Quadrivalent with Preservative IM 07/12/[address] [facility] [id number] completed Influenza (AFLURIA/FLUZONE) Inactivated/Split Quadrivalent with Preservative IM 07/12/[address] [facility] [id number] completed Influenza (AFLURIA/FLUZONE) Inactivated/Split Quadrivalent with Preservative IM 07/12/[address] [facility] [id number] completed Influenza (AFLURIA/FLUZONE) Inactivated/Split Quadrivalent with Preservative IM 07/12/[address] [facility] [id number] completed Influenza (AFLURIA/FLUZONE) Inactivated/Split Quadrivalent with Preservative IM 07/12/[address] [facility] [id number] completed Influenza Inactivated/Split with Preservative IM 07/12/[address] [facility] [id number] completed Influenza, seasonal, injecta ble, preservative free 07/12/2015 [facility] [id number] completed Influenza, seasonal, injecta ble, preservative free 07/12/2015 [facility] [id number] completed Influenza, split virus, triv alent, Preservative Free 07/12/2015 [facility] [id number] completed Influenza Inactivated/Split Preservative Free IM 04/28/[address] [facility] completed Influenza, trivalent, inject able, contains preservative 04/28/2013 [facility] completed Influenza Inactivated/Split Preservative Free IM 06/06/[address] [facility] completed Influenza, trivalent, inject able, contains preservative 06/06/2012 [facility] completed Influenza (AFLURIA/FLUZONE) Inactivated/Split Quadrivalent with Preservative IM 06/16/[address] [facility] [id number] completed Influenza (AFLURIA/FLUZONE) Inactivated/Split Quadrivalent with Preservative IM 06/16/[address] [facility] [id number] completed Influenza (AFLURIA/FLUZONE) Inactivated/Split Quadrivalent with Preservative IM 06/16/[address] [facility] [id number] completed Influenza (AFLURIA/FLUZONE) Inactivated/Split Quadrivalent with Preservative IM 06/16/[address] [facility] [id number] completed Influenza (AFLURIA/FLUZONE) Inactivated/Split Quadrivalent with Preservative IM 06/16/[address] [facility] [id number] completed Influenza (AFLURIA/FLUZONE) Inactivated/Split Quadrivalent with Preservative IM 06/16/2011 [facility] [id number] completed Influenza (AFLURIA/FLUZONE) Inactivated/Split Quadrivalent with Preservative IM 06/16/2011 [facility] [id number] completed Influenza Inactivated/Split with Preservative IM 06/16/2011 [facility] [id number] completed DT 01/08/2007 [facility] completed DT 01/08/2007 [facility] completed DT 01/08/2007 [facility] completed DT 01/08/2007 [facility] completed DT 01/08/2007 [facility] completed DT 01/08/2007 [facility] completed Encounters Encounter Type Encounter Reason Primary Diagnosis Location Date Ambulatory Causalgia of left upper limb Causalgia of left upper limb [email or web address] 5 Ambulatory [facility] ( [facility] 5 Ambulatory Causalgia of left upper limb Causalgia of left upper limb [facility] 5 Inpatient Pain in thoracic spine Pain in thoracic spine [facility] 5 Inpatient Pain in thoracic spine Pain in thoracic spine [facility] 5 Ambulatory [facility] 5 Ambulatory [facility] 5 Ambulatory Other malaise and fatigue Other malaise and fatigue [facility] 5 Ambulatory Discitis, unspecified, thoracic region Discitis, unspecified, thoracic region [facility] 5 Ambulatory [facility] 5 Ambulatory [facility] 5 Ambulatory Type 2 diabetes mellitus with hyperglycemia Type 2 diabetes mellitus with hyperglycemia [facility] 5 Ambulatory Follow-up Follow-up [facility] ( [facility]) 5 Ambulatory Causalgia of left upper limb Causalgia of left upper limb [facility] 5 Ambulatory New Patient [facility] 5 Ambulatory [facility] 04/12/20 2 5 Ambulatory Follow-up Follow-up [facility] ( [facility]) 5 Ambulatory Causalgia of left upper limb Causalgia of left upper limb [facility] 5 Ambulatory Other specified conditions influencing health status(V49.89) Other specified conditions influencing health status(V49.89) [facility] ([facility]) 5 Ambulatory Other specified conditions influencing health status(V49.89) Other specified conditions influencing health status(V49.89) 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 [facility] 5 Ambulatory Irritant contact dermatitis due to plants, except food Irritant contact dermatitis due to plants, except food [facility] 5 Ambulatory Cramp and spasm Cramp and spasm [facility] 5 Ambulatory Type 2 diabetes mellitus with hyperglycemia Type 2 diabetes mellitus with hyperglycemia [facility] 5 Ambulatory Major depressive disorder, single episode, moderate Major depressive disorder, single episode, moderate [facility] 5 Ambulatory Causalgia of left upper limb Causalgia of left upper limb [facility] 5 Ambulatory Attention-deficit hyperactivity disorder, unspecified type Attention-deficit hyperactivity disorder, unspecified type [facility] 5 Ambulatory Illness, unspecified Illness, unspecified [facility] 5 Ambulatory Reaction to severe stress, unspecified Reaction to severe stress, unspecified [facility] 5 Ambulatory Causalgia of left upper limb Causalgia of left upper limb [facility] 5 Ambulatory Mast cell Mast cell [facility] 5 Ambulatory Gastroparesis Gastroparesis [facility] 5 Ambulatory [facility] ( [facility]) 5 Ambulatory Tinea corporis Tinea corporis [facility] 4 Ambulatory Encounter for genera l adult medical examination without abnormal findings Encounter for general adult medical examination without abnormal findings [facility] 4 Ambulatory Gastroparesis Gastroparesis [facility] ([facility]) 4 Ambulatory pots, dysautonomia pots, dysautonomia [facility] 4 Ambulatory Type 2 diabetes mellitus with hyperglycemia Type 2 diabetes mellitus with hyperglycemia [facility] 4 Ambulatory Follow-up Follow-up 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 ( [facility]) 4 Ambulatory Dizziness and giddiness Dizziness and giddiness [facility] 4 Ambulatory Acute pharyngitis, unspecified Acute pharyngitis, unspecified [facility] 4 Ambulatory Follow-up Follow-up [facility] ( [facility]) 4 Ambulatory Abdominal distension (gaseous) Abdominal distension (gaseous) [facility] 4 Ambulatory Type 2 diabetes mellitus with hyperglycemia Type 2 diabetes mellitus with hyperglycemia [facility] 4 Ambulatory Gastroparesis Gastroparesis [facility] ([facility]) 4 Ambulatory Cramp and spasm Cramp and spasm [facility] 4 Inpatient Fever, unspecified Fever, unspecified [facility] 4 [facility]ulatory [facility] 4 [facility] 4 Ambulatory Type 2 diabetes mellitus with hyperglycemia Type 2 diabetes mellitus with hyperglycemia [facility] 3 Ambulatory Cramp and spasm Cramp and spasm [facility] 3 Ambulatory Unspecified foreign body in respiratory tract, part unspecified causing other injury, initial encounter Unspecified foreign body in respiratory tract, part unspecified causing other injury, initial encounter [facility] 3 Ambulatory Status of other artificial opening of gastrointestinal tract Status of other artificial opening of gastrointestinal tract [facility] 3 Ambulatory Type 2 diabetes mellitus with hyperglycemia Type 2 diabetes mellitus with hyperglycemia [facility] 3 Ambulatory Abdominal distension (gaseous) Abdominal distension (gaseous) [facility] 3 Ambulatory Causalgia of left upper limb Causalgia of left upper limb [facility] 3 Inpatient Other complications due to other vascular device, implant, and graft Other complications due to other vascular device, implant, and graft [facility] 3 Ambulatory Sepsis due to Escherichia coli (e. coli) Sepsis due to Escherichia coli (e. coli) [facility] 3 Inpatient Fever, unspecified Fever, unspecified [facility] 3 Inpatient Fever, unspecified Fever, unspecified [facility] 3 Ambulatory Testicular hypofunction [facility] 3 Ambulatory Gastroparesis [facility] 3 Ambulatory Causalgia of lef t upper limb [facility] 3 Inpatient Fever, unspecified [facility] 3 Ambulatory Causalgia of lef t upper limb [facility] 3 Ambulatory Obstructive slee p apnea (adult) (pediatric) [facility] 3 Ambulatory Gastroparesis [facility] 3 Ambulatory Gastroparesis [facility] 3 Ambulatory Causalgia of lef t upper limb [facility] 3 Inpatient Unspecified abdomina l pain Unspecified abdominal pain [facility] 3 Ambulatory [facility]is [facility] 3 Ambulatory Testicular hypofunction [facility] 3 Ambulatory Gastrop[facility]is [facility] 3 Inpatient Cellulitis of abdominal wall [facility] 3 Ambulatory Gastroparesis [facility] 3 Ambulatory Gastroparesis [facility] 3 Ambulatory Obstructive slee p apnea (adult) (pediatric) [facility] 3 Emergency Gastroparesis [facility] 3 Ambulatory Obstructive slee p apnea (adult) (pediatric) [facility] 3 Ambulatory Other muscle spasm [facility] 3 Ambulatory Other muscle spasm [facility] 3 Ambulatory Causalgia of lef t upper limb [facility] 2 Ambulatory Gastroparesis [facility] 2 Inpatient Unspecified abdo meera pain [facility] 2 Ambulatory Other mcfp (current) drug therapy [facility] 2 Ambulatory Cramp and spasm [facility] 2 Ambulatory Psychophysiologi c insomnia [facility] 2 Ambulatory [facility] Ambulatory Early satiety [facility] 2 Ambulatory Other insomnia [facility] 2 Ambulatory Lymphedema, not elsewhere classified [facility] 2 Ambulatory Encounter for preprocedural laboratory examination [facility] 2 Ambulatory Cramp and spasm [facility] 2 Ambulatory Causalgia of lef t upper limb [facility] 2 Ambulatory Other insomnia [facility] 2 Ambulatory Encounter for screening for COVID-19 [facility] 2 Ambulatory Causalgia of lef t upper limb [facility] 2 Ambulatory Early satiety [facility] 2 Ambulatory Causalgia of lef t upper limb [facility] 2 Ambulatory [facility] 2 Ambulatory Contact with and (suspected) exposure to covid-19 [facility] 2 Ambulatory Causalgia of lef t upper limb [facility] 2 Ambulatory Obstructive slee p apnea (adult) (pediatric) [facility] 2 Ambulatory Primary insomnia [facility] 2 Ambulatory Causalgia of lef t upper limb [facility] 2 Ambulatory Prediabetes [facility] 1 Ambulatory Causalgia of lef t upper limb [facility] 1 Ambulatory Contact with and (suspected) exposure to covid-19 [facility] 1 Ambulatory Pain in left arm [facility] 1 Ambulatory Pain in left arm [facility] 09/30/202 1 Care Team Organization Name Specialty Phone Email Start Date End Da te [facility] Primary Care 06/12/2025 [facility] Primary Care 06/03/2025 [facility] 05/28/2025 [facility] Madhav [facility] Primary Care 05/22/2025 [facility] Primary Care [facility] Primary Care 04/13/2025 [facility] Primary Care 07/15/2025 [facility] Primary Care 11/04/2024 [facility] Primary Care 08/2023 [facility] 12/04/2023 [facility] Care 11/15/2023 [facility] Primary Care 11/15/2023 025 [facility] Primary Care 09/20/2023 [facility] ([facility]) [facility] Care 09/18/2023 [facility] 06/07/2023 025 [facility] 04/28/2023 024 [facility] 03/17/2007/15/2025 [facility] 03/16/202303/06 [facility] 03/16/2003/16/2023 [facility] 08/24/2022 [facility] Madhav [facility] Primary Care 08/23/1908/23/2022 [facility] 07/18/2022 [facility] 07/05/2022 [facility] 05/14/2019 06/22/2022 [facility] Care 05/14/2019 06/22/2022
--- OUTSIDE RECORDS SUMMARY | 2025-07-24 20:36 | XMS_ITS | Encounter Summary ---
Author Organization [facility] Address [address] [place] [address] Care Team Providers Care Barber Instructor Name Role Phone Madhav Mcfadden MD Primary Care Provider [phone] Encounter Details Date Type Department Care Team ([facility] Contact Info) Description 07/15/2025 Results Follow-Up [facility] [address] [place], [place] [address] Bianka Antonio PA 200 [facility] [address] [place] [phone] Lab Scan Social History Tobacco Use Types Packs/Day [...] things needed for daily living? No 06/16/2025 [facility] Utilities Answer Date Recorded In the [...] Miscellaneous Notes * Result Encounter Note - Bianka Antonio PA - 07/15/2025 11:55 AM EST [facility] Documentation Note LAB REVIEW OPAT Synopsis can be found Here Summary of Results Date of lab draw: 07/10/25 from 07/06/25 Cr= 0.91 (from: 0.93) WBC= 5.3(from: 5.1) Hg/HCT= 14.2/45(from: 13.5/42.8) CRP= < 3 (from: < 3) ALK PH= 65 (from: 55) ALT= 27 (from: 20) AST= 31 (from: 23) Was an Adverse Event Identified? No Author's Role RASHID (e.g. UGO or MANOLO) Total Time Spent on this Encounter (in minutes) 5 minutes documented in this encounter Plan of Treatment Upcoming Encounters Date Type Department Care Team (Late st Contact Info) Description 08/05/2025 1:40 PM EST Appointment [facility] [place] Scan [address] [place] [address]. [place] [address] Bal Villavicencio MD [address] [place] [phone] 08/11/2025 4:00 PM EST Evaluation [facility] 200 [place] [address] Kerry Kaba MD 200 [facility] [address] [place] [phone] 08/17/2025 1:00 PM EST [facility] [address] [place] [address] Petrona Nesbitt PA [address] [place] [phone] 09/04/2025 10:15 AM EST [facility] [address] [place] [address] Carlos Lo MD [address] [place] [phone] 10/20/2025 4:00 PM EDT Telemedicine [facility] 40 [facility] [address] [place] [address] Prerna Paulino MD [address] [phone] 10/29/2025 9:00 AM EDT Office Visit [facility] [address] [place] [address] Petrona Nesbitt PA [address] [place] [phone] 12/10/2025 10:00 AM EDT Office Visit [facility] [address] [place] [address] Petrona Nesbitt PA [address] [place] [phone] 01/21/2026 10:00 AM EDT [facility] Visit [facility] [address] [place] [address] Petrona Nesbitt PA [address] [place] [phone] 03/04/2026 10:00 AM EDT [facility] Visit [facility] [address] [place] [address] Petrona Nesbitt PA [address] [place] [phone] 04/15/2026 10:30 AM EDT Office Visit [facility] [address] [place] [address] Ebonie Crowley MD [address] [place] [phone] documented as of this encounter Visit Diagnoses Not on filedocumented in this encounter Additional Health Concerns Assessment Noted Time PHQ-9 Depression Total Score: 0 08/18/19 24 6:00 PM EST documented as of this encounter Care Teams Barber Instructor Relationship Specialty Start Date End Date Madhav Mcfadden MD [address] [place] [address] PCP - General Family Medicine 08/20/23 documented as of this encounter
--- OUTSIDE RECORDS SUMMARY | 2025-07-24 20:36 | XMS_ITS | Encounter Summary ---
Author Organization [facility] Address [address] [place] [address] Care Team Providers Care Deblocker Name Role Phone Madhav Mcfadden MD Primary Care Provider [phone] Encounter Details Date Type Department Care Team ([facility] st Contact Info) Description 05/12/2025 Scanned Document [facility] SCHEDULING [address] [place], [place] [phone] Provider, Historical . Social History Tobacco Use [...] Info) Description 08/05/2025 1:40 PM EST [facility] [address] [place] [address]. [place] [address] Bal Villavicencio MD Corporate [facility] [address] [place] [phone] 08/11/2025 4:00 PM EST Evaluation [facility] [address] [place] [address] Kerry Kaba MD 200 [facility] 204 [place] [phone] 08/17/2025 1:00 PM EST [facility] [address] [place] [address] Petrona Nesbitt PA [address] [place] [phone] 09/04/2025 10:15 AM EST [facility] [address] [place] [address] Carlos Lo MD [address] [place] [phone] 10/20/2025 4:00 PM EDT Telemedicine [facility] 40 [facility] [address] [place] [address] Prerna Paulino MD [address] [phone] 10/29/2025 9:00 AM EDT [facility] Visit [facility] [address] [place] [address] Petrona Nesbitt PA [address] [place] [phone] 12/10/2025 10:00 AM EDT [facility] Visit [facility] [address] [place] [address], [place] [address] Petrona Nesbitt PA [address] [place] [phone] 01/21/2026 10:00 AM EDT Office Visit [facility] [address] [place] [address], [place] [address] Petrona Nesbitt PA [address] [place] [phone] 03/04/2026 10:00 AM EDT [facility] Visit [facility] [address] [place] [address] Petrona Nesbitt PA [address] [place] [phone] 04/15/2026 10:30 AM EDT [facility] Visit [facility] [address] [place] [address] Ebonie Crowley MD [address] [place] [phone] documented as of this encounter Procedures Procedure Name Priority Date/Time Associated Diagnosis Comments LAB SCAN Routine 05/08/2025 12:29 PM EDT documented in this encounter Results * Lab Scan (05/08/2025 12:29 PM EDT) us Historical Provider LAB BLOOD ORDERABLES Final R esult documented in this encounter Visit Diagnoses Not on filedocumented in this encounter Additional Health Concerns Assessment Noted Time PHQ-9 Depression Total Score: 0 08/18/19 24 6:00 PM EST documented as of this encounter Care Teams Deblocker Relationship Specialty Start Date End Date Madhav Mcfadden MD [address] [place] [phone] PCP - General Family Medicine 08/20/23 documented as of this encounter
--- OUTSIDE RECORDS SUMMARY | 2025-07-24 20:36 | XMS_ITS | Encounter Summary ---
Author Organization [facility] and [facility] Address [address] [place] [address] Care Team Providers Care Record Press Operator Name Role Phone Madahv Mcfadden MD Primary Care Provider [phone] Encounter Details Date Type Department Care Team ([facility] st Contact Info) Description 07/20/2025 Pharmacy Encounter [facility] [address] [place], [place] [phone] Lela Zafar PharmD Social History Tobacco Use Types Packs/Day Years [...] things needed for daily living? No 06/16/2025 [facility] Utilities Answer Date Recorded In the past 12 months has th e electric, gas, oil, or water [employer] threatened to shut off services in your [...] on file documented as of this encounter Progress Notes * Lela Zafar, PharmD - 07/20/2025 10:14 AM EST [facility] Documentation Note VANCOMYCIN MONITORING OUTPATIENT PARENTERAL ANTIBIOTIC THERAPY MONITORING: VANCOMYCIN OPAT Synopsis can be found Here Current Vancomycin Order: 1.25 g IV every 8 hours Anticipated vancomycin discontinuation date: 08/04/25 Renal Function: Stable Date Scr 07/17 1.01 07/10 0.91 07/03 0.93 Level: Date Vanc Level Vanc Dose 07/17 1.09 1.25g q8h 07/13 11.8 1.25g q8h 07/10 Not drawn 1.25g q8h 07/03 15.3 1.25g q8h Type of Level: Trough Trough Goal: 10-15 Source: Verbal Based on vancomycin level, would: Continue current regimen Repeat level recommended: 07/24 Communicated with: [facility]/ADWOA Krueger PharmD Adverse events identified? No Time Spent on this Encounter: 20 minutes Lela Zafar, AbundioD, BCIDP, AAHIVP Clinical Facility Attendant I - Infectious Diseases [facility] documented in this encounter Plan of Treatment Upcoming Encounters Date Type Department Care Team (Late st Contact Info) Description 08/05/2025 1:40 PM EST [facility] [address] [place] [address]. [place] [address] Bal Villavicencio MD [address] [place] [phone] 08/11/2025 4:00 PM EST Evaluation [facility] [address] [place] [address] Kerry Kaba MD 200 [facility] 204 [place] [phone] 08/17/2025 1:00 PM EST [facility] Visit [facility] [address] [place] [address] Petrona Nesbitt PA [address] [place] [phone] 09/04/2025 10:15 AM EST [facility] [address] 6[address] [place] [address] Carlos Lo MD [address] [place] [phone] 10/20/2025 4:00 PM EDT Telemedicine [facility] 40 [facility] 40 [facility] [address] [place] [address] Prerna Paulino MD [address] [place] [phone] 10/29/2025 9:00 AM EDT Office Visit [facility] [address] [place] [address] Petrona Nesbitt PA [address] [place] [phone] 12/10/2025 10:00 AM EDT Office Visit [facility] [address] [place] [address] Petrona Nesbitt PA [address] [place] [phone] 01/21/2026 10:00 AM EDT Office Visit [facility] [address] [place] [address] Petrona Nesbitt PA [address] [place] [phone] 03/04/2026 10:00 AM EDT Office Visit [facility] [address] [place] [address] Petrona Nesbitt PA [address] [place] [phone] 04/15/2026 10:30 AM EDT Office Visit [facility] [address] [place] [address] Ebonie Crowley MD [address] [place] [phone] documented as of this encounter Visit Diagnoses Not on filedocumented in this encounter Additional Health Concerns Assessment Noted Time PHQ-9 Depression Total Score: 0 08/18/19 24 6:00 PM EST documented as of this encounter Care Teams Record Press Operator Relationship Specialty Start Date End Date Madhav Mcfadden MD [address] [place] [phone] PCP - General Family Medicine 08/20/23 documented as of this encounter
--- OUTSIDE RECORDS SUMMARY | 2025-07-24 20:36 | XMS_ITS | Encounter Summary ---
Author Organization [facility] and [facility] Address 20 [place] [address] Care Team Providers Care Consignee Name Role Phone Madhav Mcfadden MD Primary Care Provider [phone] Encounter Details Date Type Department Care Team ([facility] st Contact Info) Description 07/14/2025 Scanned Document [facility] SCHEDULING 25 [place], [place] [id number] Provider, Historical . Social History Tobacco Use [...] things needed for daily living? No 06/16/2025 [facility] Utilities Answer Date Recorded In the [...] Info) Description 08/05/2025 1:40 PM EST [facility] [address] [place] [address]. [place] [address] Bal Villavicencio MD [address] [facility] [address] [place] [address] 08/11/2025 4:00 PM EST Evaluation [facility] 200 [place], [place] [address] Kerry Kaba MD 200 [facility] 204 [place] [phone] 08/17/2025 1:00 PM EST Office Visit [facility] at [address] [place] [address] [phone] Petrona Nesbitt PA [address] [place] [phone] 09/04/2025 10:15 AM EST [facility] at [address] 6[address] [place] [address] Carlos Lo MD [address] [place] [phone] 10/20/2025 4:00 PM EDT Telemedicine [facility] 40 [facility] 40 [facility] 1A [place] [address] Prerna Paulino MD [address] [phone] 10/29/2025 9:00 AM EDT Office Visit [facility] [address] [place] [address] Petrona Nesbitt PA [address] [place] [phone] 12/10/2025 10:00 AM EDT Office Visit [facility] [address] [place] [address] Petrona Nesbitt PA [address] [place] [phone] 01/21/2026 10:00 AM EDT Office Visit [facility] [address] [place] [address], [place] [address] Petrona Nesbitt PA [address] [place] [phone] 03/04/2026 10:00 AM EDT Office Visit [facility] [address] [place] [address], [place] [address] Petrona Nesbitt PA [address] [place] [phone] 04/15/2026 10:30 AM EDT Office Visit [facility] [address] [place] [address], [place] [address] Ebonie Crowley MD [address] [place] [phone] documented as of this encounter Procedures Procedure Name Priority Date/Time Associated Diagnosis Comments LAB SCAN Routine 07/14/2025 11:21 AM EST LAB SCAN Routine 07/13/2025 9:56 AM EST documented in this encounter Results * Lab Scan (07/14/2025 11:21 AM EST) us Prerna Paulino MD LAB BLOOD ORDERABLES Final Result * Lab Scan (07/13/2025 9:56 AM EST) us Historical Provider LAB BLOOD ORDERABLES Final R esult documented in this encounter Visit Diagnoses Not on filedocumented in this encounter Additional Health Concerns Assessment Noted Time PHQ-9 Depression Total Score: 0 08/18/19 24 6:00 PM EST documented as of this encounter Care Teams Consignee Relationship Specialty Start Date End Date Madhav Mcfadden MD [address] [place] [phone] PCP - General Family Medicine 08/20/23 documented as of this encounter
--- OUTSIDE RECORDS SUMMARY | 2025-07-24 20:36 | XMS_ITS | Encounter Summary ---
Author Organization [facility] and [facility] Address 20 [place] [address] Care Team Providers Care Clip Bolter And Wrapper Name Role Phone Madhav Mcfadden MD Primary Care Provider [phone] Encounter Details Date Type Department Care Team ([facility] st Contact Info) Description 07/06/2025 Scanned Document [facility] 200 [place], [place] 881031 Ebonie Crowley MD [address] [place] [phone] Social History Tobacco Use Types Packs/Day Years [...] things needed for daily living? No 06/16/2025 [facility] Utilities Answer Date Recorded In the past 12 months has e electric, gas, oil, or water company [...] Info) Description 08/05/2025 1:40 PM EST [facility] [address] [place] [address]. [place] [address] Bal Villavicencio MD [address] [facility] [address] [place] [address] 08/11/2025 4:00 PM EST Evaluation [facility] 200 [place] [address] Kerry Kaba MD 200 [facility] 204 [place] [phone] 08/17/2025 1:00 PM EST Office Visit [facility] at [address] [place] [phone] Petrona Nesbitt PA [address] [place] [phone] 09/04/2025 10:15 AM EST [facility] at [address] 6[address] [place] [address] Carlos Lo MD [address] [place] [phone] 10/20/2025 4:00 PM EDT Telemedicine [facility] [address] [place] [address] 40 [facility] 1A [place] [address] Prerna Paulino MD [address] [phone] 10/29/2025 9:00 AM EDT Office Visit [facility] [address] [place] [address] Petrona Nesbitt PA [address] [place] [phone] 12/10/2025 10:00 AM EDT Office Visit [facility] [address] [place] [address], [place] [address] Petrona Nesbitt PA [address] [place] [phone] 01/21/2026 10:00 AM EDT Office Visit [facility] [address] [place] [address] Petrona Nesbitt PA [address] [place] [phone] 03/04/2026 10:00 AM EDT Office Visit [facility] [address] [place] [address] Petrona Nesbitt PA [address] [place] [phone] 04/15/2026 10:30 AM EDT Office Visit [facility] [address] [place] [address] Ebonie Crowley MD [address] [phone] documented as of this encounter Procedures Procedure Name Priority Date/Time Associated Diagnosis Comments LAB SCAN Routine 07/06/2025 1:18 PM EST documented in this encounter Results * Lab Scan (07/06/2025 1:18 PM EST) us Ebonie Crowley MD LAB BLOOD ORDERABLES Final Resul t documented in this encounter Visit Diagnoses Not on filedocumented in this encounter Additional Health Concerns Assessment Noted Time PHQ-9 Depression Total Score: 0 08/18/19 24 6:00 PM EST documented as of this encounter Care Teams Clip Bolter And Wrapper Relationship Specialty Start Date End Date Madhav Mcfadden MD [address] [place] [address] PCP - General Family Medicine 08/20/23 documented as of this encounter
--- OUTSIDE RECORDS SUMMARY | 2025-07-24 20:36 | XMS_ITS | Encounter Summary ---
Author Organization [facility] and [facility] Address [address] [place] [address] Care Team Providers Care Rod Drawer Name Role Phone Madhav Mcfadden MD Primary Care Provider [phone] Encounter Details Date Type Department Care Team (Latest Contact Info) Description 06/23/2025 Transcribed Orders [facility] Specimens 55 [place], [place] [id number] Lab Provider, No Fax Routine general medical examination at a health care facility (Primary Dx) Social History Tobacco Use Types [...] things needed for daily living? No 06/16/2025 [facility] Utilities Answer Date Recorded In the past [...] Description 08/05/2025 1:40 PM EST [facility] [address] [place] [address] Bal Villavicencio MD [address] [facility] [address] [place] [address] 08/11/2025 4:00 PM EST Evaluation [facility] 200 [place] [address] Kerry Kaba MD 200 [facility] 204 [place] [phone] 08/17/2025 1:00 PM EST Office Visit [facility] at [address] [place] [address] 8 [place] [address] Petrona Nesbitt PA [address] [place] [phone] 09/04/2025 10:15 AM EST [facility] at [address] 6[address] [place] [address] Carlos Lo MD [address] [place] [phone] 10/20/2025 4:00 PM EDT Telemedicine [facility] 40 [facility] 40 [facility] 1A [place] [address] Prerna Paulino MD [address] [place] [phone] 10/29/2025 9:00 AM EDT Office Visit [facility] [address] [place] [address], [place] [address] Petrona Nesbitt PA [address] [place] [phone] 12/10/2025 10:00 AM EDT Office Visit [facility] [address] [place] [address], [place] [address] Petrona Nesbitt PA [address] [place] [phone] 01/21/2026 10:00 AM EDT Office Visit [facility] [address] [place] [address], [place] [address] Petrona Nesbitt PA [address] [place] [phone] 03/04/2026 10:00 AM EDT Office Visit [facility] [address] [place] [address], [place] [address] Petrona Nesbitt PA [address] [place] [phone] 04/15/2026 10:30 AM EDT Office Visit [facility] [address] [place] [address] Ebonie Crowley MD [address] [place] [phone] documented as of this encounter Procedures Procedure Name Priority Date/Time Associated Diagnosis Comments SPECIMEN TRACKING SHELL TEST ([facility]) Routine 06/23/2025 3:00 PM EST Routine general medical examination at a health care facility documented in this encounter Results * Specimen Tracking Shell Test ([facility]) (06/23/2025 3:00 PM EST) Other Collection / Unknown 06/23/2025 3:00 PM EST 06/23/2025 3:00 PM EST us No Fax Lab Provider LAB BLOOD ORDERABLES - NEVER SEND STATUS Final Result Performing Organization Address City/State/[facility] Co de Phone Number [facility] DEPARTMENT OF LABORATORY MEDICINE [address] [place] [address] documented in this encounter Visit Diagnoses Diagnosis Routine general medical examination at a health care facility- Primary documented in this encounter Additional Health Concerns Assessment Noted Time PHQ-9 Depression Total Score: 0 08/18/19 24 6:00 PM EST documented as of this encounter Care Teams Rod Drawer Relationship Specialty Start Date End Date Madhav Mcfadden MD [address] [place] [address] PCP - General Family Medicine 08/20/23 documented as of this encounter
--- OUTSIDE RECORDS SUMMARY | 2025-07-24 20:36 | XMS_ITS | Encounter Summary ---
Author Organization [facility] Address [address] [place] [address] Care Team Providers Care Hotel Baggage Handler Name Role Phone Jacqueline Kay MD Primary Care Provider Unava ilable Jacqueline Kay MD Primary Care Provider Unava ilable Jacqueline Kay MD Unavailable Unavailable Jacqueline Kay MD Unavailable Unavailable Stephanie Darnell I JOURNALISTS AND OTHER WRITERS Unavailable [phone] Stephanie Darnell I JOURNALISTS AND OTHER WRITERS Unavailable [phone] Cathleen Allan MD Unavailable [phone] Pete Hester MD Unavailable [phone] Pati Armendariz PhD Unavailabl e Madhav Mcfadden MD Primary Care Provider [phone] Jacqueline Kay MD Unavailable Unavailable Yasmine Cohen RN Unavailable Unavaila ble Bre Almaguer RN Unavailable [phone] Madhav Mcfadden MD Unavailable [phone] Romero Pryor MD Unavailable [phone] Prerna Paulino MD Unavailable [phone] Magda Davis MD Unavailable [phone] Ifeoma Hanson MD Unavailable Ifeoma Hanson MD Unavailable [phone] Encounter Details Date Type Department Care Team (Late st Contact Info) Description 03/04/2020 Scanned Document [facility] [address] [place] [address] Stephanie Darnell I, JOURNALISTS AND OTHER WRITERS 85 [facility] 1022 [place] [phone] Social History Tobacco Use Types Packs/Day Years [...] have Coronavirus / COVID-19? No / Unsure 02/27/2020 12:51 PM EDT documented as of this encounter Plan of Treatment Upcoming Encounters Date Type Department Care Team (Late Contact Info) Description 2025 8:00 AM EST Office Visit [address] [phone] Madhav Mcfadden MD [address] [place] [address] 09/01/2025 9:20 AM EST Office Visit [id number] [address] [phone] Reji Mi DO [address] [phone] 09/29/2025 9:20 AM EST Office Visit [id number] [address] [place] [phone] ShmuelRejiil, DO [address] [address] 10/27/2025 9:40 AM EDT Office Visit [id number] [address] [place] [address] ShmuelReji Joni, DO [address] [place] [address], [place] [address] 12/01/2025 9:40 AM EDT Office Visit [id number] [address] [place] [phone] ShmuelReji Joni, DO [address] [place] [address] 02/03/2026 9:30 AM EDT Telemedicine [facility] Endocrinology [address] [phone] Ifeoma Hanson MD [address] [place] [address] documented as of this encounter Goals Goal [...] OT Note: Patient will increase L retail attendant strength (4lbs) to 60 lbs or more in order to open pill bottles with greater ease x12 weeks Patient will increase L lateral pinch (3.5), L tip pinch (2.5), L 3 jaw pinch (2.5) by 5 lbs each in order for greater ease with typing x12 weeks. 06/18/2019 L retail attendant- 20 lbs L lateral pinch- 6.2 [...] documented as of this encounter Care Teams Hotel Baggage Handler Relationship Specialty Start Date End Date Jacqueline Kay MD PCP - General Family Medicine 11/01/17 04/28/21 Jacqueline Kay MD PCP - General Family Medicine 04/29/21 01/15/22 Jacqueline Kay MD PCP - [employer] Commercial Attributed 06/06/20 07/05/20 Stephanie Darnell APRN [address] [phone] PCP - [employer] Commercial Attributed 07/06/20 10/03/20 Stephanie Darnell I JOURNALISTS [employer] OTHER WRITERS [address] [phone] PCP - [employer] Commercial Attributed 05/06/21 11/03/21 Madhav Mcfadden MD 1555 [place], [place] 3[address] PCP - General Family Medicine 01/16/22 Jacqueline Kay MD PCP - [employer] Commercial Attributed 11/04/21 07/05/22 Madhva Mcfadden MD 15[address] [place], [place] [address] PCP - [employer] Commercial Attributed 07/06/22 07/05/23 Jacqueline Kay MD Family Medicine 04/29/21 03/30/22 Cathleen Allan MD [address] [place] [address] 1022 [place] [phone] Urology 09/15/16 Pete Hester MD [address] [place] [address] Surgery, Orthopedic 08/15/19 Pati Armendariz, PhD [address] [place] [address] Clinical Psychologist Psychology 09/16/21 Yasmine Cohen, RN [address] Community Piercer Operator 07/21/22 08/26/23 Bre Almaguer, RN [address] [address] [facility] Community Piercer Operator 10/03/22 11/13/22 Romero Pryor MD [address] [place] [address] Cardiovascular Disease 02/05/23 Prerna Paulino MD [address] [place] [address] Internal Medicine 07/04/24 Magda Davis MD [address] [place] [address] Gastroenterology 07/04/24 Ifeoma Hanson MD [address] [place] [address] Endocrinology 07/04/24 Ifeoma Hanson MD [address] [place] [address] Endocrinology 11/26/24 documented as of this encounter
--- OUTSIDE RECORDS SUMMARY | 2025-07-24 20:36 | XMS_ITS | Encounter Summary ---
Author Organization [facility] Address [address] [place] [address] Care Team Providers Care School Psychologist Assistant Name Role Phone Madhav Mcfadden MD Primary Care Provider [phone] Encounter Details Date Type Department Care Team ([facility] st Contact Info) Description 07/21/2025 Scanned Document [facility] 40 [facility] 40 [facility] [address] [place] [address] Social History Tobacco Use Types Packs/Day Years [...] things needed for daily living? No 06/16/2025 [facility] Utilities Answer Date Recorded In [...] Info) Description 08/05/2025 1:40 PM EST [facility] [address] [place] [address] Bal Villavicencio MD [address] [facility] [address] [place] [address] 08/11/2025 4:00 PM EST Evaluation [facility] 200 [place], [place] 973961 Kerry Kaba MD 200 [facility] 204 [place] [phone] 08/17/2025 1:00 PM EST Office Visit [facility] at [address] [place] [address] Petrona Nesbitt PA [address] [place] [phone] 09/04/2025 10:15 AM EST [facility] [address] [place] [address] Carlos Lo MD [address] [place] [phone] 10/20/2025 4:00 PM EDT Telemedicine [facility] 40 [facility] 40 [facility] 1A [place] [address] Prerna Paulino MD 40 [facility] 1A [place] [phone] 10/29/2025 9:00 AM EDT Office Visit [facility] [address] [place] [address], [place] [address] Petrona Nesbitt PA [address] [place] [phone] 12/10/2025 10:00 AM EDT Office Visit [facility] [address] [place] [address], [place] [address] Petrona Nesbitt PA [address] [place] [phone] 01/21/2026 10:00 AM EDT Office Visit [facility] [address] [place] [address], [place] [address] Petrona Nesbitt PA [address] [place] [address], [place] [address] 03/04/2026 10:00 AM EDT Office Visit [facility] [address] [place] [address], [place] [address] Petrona Nesbitt PA [address] [place] [phone] 04/15/2026 10:30 AM EDT Office Visit [facility] [address] [place] [address], [place] [address] Ebonie Crowley MD [address] [place] [phone] documented as of this encounter Procedures Procedure Name Priority Date/Time Associated Diagnosis Comments LAB SCAN Routine 07/21/2025 1:25 PM EST LAB SCAN Routine 07/18/2025 8:53 AM EST documented in this encounter Results * Lab Scan (07/21/2025 1:25 PM EST) us Ebonie Crowley MD LAB BLOOD ORDERABLES Final Resul t * Lab Scan (07/18/2025 8:53 AM EST) us Outside [facility] LAB BLOOD ORDERABLES Final Resul t documented in this encounter Visit Diagnoses Not on filedocumented in this encounter Additional Health Concerns Assessment Noted Time PHQ-9 Depression Total Score: 0 08/18/19 24 6:00 PM EST documented as of this encounter Care Teams School Psychologist Assistant Relationship Specialty Start Date End Date Madhav Mcfadden MD [address] [place] [address] PCP - General Family Medicine 08/20/23 documented as of this encounter
--- OUTSIDE RECORDS SUMMARY | 2025-07-24 20:36 | XMS_ITS | Encounter Summary ---
Author Organization [facility] and [facility] Address 20 [place] [address] Care Team Providers Care Patient Experience Coordinator Name Role Phone Madhav Mcfadden MD Primary Care Provider [phone] Encounter Details Date Type Department Care Team ([facility] st Contact Info) Description 07/08/2025 Results Follow-Up [facility] 200 [place], [place] [address]161 Magda Berman PA 200 [facility] 204 [place] [phone] Lab Scan Social History Tobacco Use Types [...] things needed for daily living? No 06/16/2025 [facility] Utilities Answer Date Recorded In [...] Encounter Note - Magda Berman PA - 07/08/2025 2:21 PM EST [facility] Documentation Note LAB REVIEW OPAT Synopsis can be found Here Summary of Results Date of lab draw: 07/06/25 Cr= 0.93 (from: 0.90) WBC= 5.1(from: 7.1) Hg/HCT= 13.5/42.8(from: 13.4/42.8) CRP= <3.0 (from: 13.2) ALK PH= 55 (from: 65) ALT= 20 (from: 14) AST= 23 (from: 18) Was an Adverse Event Identified? No Author's Role RASHID (e.g. UGO or MANOLO) Total Time Spent on this Encounter (in minutes) 5 minutes documented in this encounter Plan of Treatment Upcoming Encounters Date Type Department Care Team (Late st Contact Info) Description 08/05/2025 1:40 PM EST Appointment [facility] CT Scan [address] [place] [address]. [place] [address] Bal Villavicencio MD [address] [facility] [address] [place] [address] 08/11/2025 4:00 PM EST Evaluation [facility] 200 [place] [address] Kerry Kaba MD 200 [facility] 204 [place] [phone] 08/17/2025 1:00 PM EST Office Visit [facility] [address] [place] [address] Petrona Nesbitt PA [address] [place] [phone] 09/04/2025 10:15 AM EST [facility] [address] 6[address] [place] [address] Carlos Lo MD [address] [place] [phone] 10/20/2025 4:00 PM EDT Telemedicine [facility] 40 [facility] 40 [facility] 1A [place] [address] Prerna Paulino MD [address] [phone] 10/29/2025 9:00 AM EDT Office Visit [facility] [address] [place] [address] Petrona Nesbitt PA [address] [place] [phone] 12/10/2025 10:00 AM EDT Office Visit [facility] [address] [place] [address] Petrona Nesbitt PA [address] [place] [phone] 01/21/2026 10:00 AM EDT Office Visit [facility] [address] [place] [address] Petrona Nesbitt PA [address] [place] [phone] 03/04/2026 10:00 AM EDT Office Visit [facility] [address] [place] [address] Petrona Nesbitt PA [address] [place] [phone] 04/15/2026 10:30 AM EDT Office Visit [facility] [address] [place] [address] Ebonie Crowley MD [address] [place] [phone] documented as of this encounter Visit Diagnoses Not on filedocumented in this encounter Additional Health Concerns Assessment Noted Time PHQ-9 Depression Total Score: 0 08/18/19 24 6:00 PM EST documented as of this encounter Care Teams Patient Experience Coordinator Relationship Specialty Start Date End Date Madhav Mcfadden MD [address] [place] [address] PCP - General Family Medicine 08/20/23 documented as of this encounter
--- OUTSIDE RECORDS SUMMARY | 2025-07-24 20:36 | XMS_ITS | Encounter Summary ---
Author Organization [facility] Address [address] [place] [address] Care Team Providers Care Costumer Name Role Phone Madhav Mcfadden MD Primary Care Provider [phone] Encounter Details Date Type Department Care Team ([facility] st Contact Info) Description 07/23/2025 Results Follow-Up [facility] [address] [place], [place] [id number] Shaka Thacker APRN 200 [place] [phone] Lab Scan Social History Tobacco Use Types [...] living? No 06/16/2025 [facility] Utilities Answer Date Recorded In the [...] Miscellaneous Notes * Result Encounter Note - Shaka Thacker APRN - 07/23/2025 3:51 PM EST [facility] Documentation Note LAB REVIEW OPAT Synopsis can be found Here Summary of Results Date of lab draw: 07/17 vs 07/10 Cr= 1.01 (from: 0.91) WBC= 5.2(from: 5.3) Hg/HCT= 14.2/45.3(from: 14.2/45) CRP= <3.0 (from: <3.0) ALK PH= 69 (from: 65) ALT= 26 (from: 27) AST= 24 (from: 31) Was an Adverse Event Identified? No Author's Role RASHID (e.g. UGO or MANOLO) Total Time Spent on this Encounter (in minutes) 5 minutes documented in this encounter Plan of Treatment Upcoming Encounters Date Type Department Care Team (Late st Contact Info) Description 08/05/2025 1:[address] [facility] [place] Scan [address] [place] [address]. [place] [address] Bal Villavicencio MD [address] [place] [address] 08/11/2025 4:00 PM EST Evaluation [facility] 200 [place] [address] Kerry Kaba MD 200 [facility] 204 [place] [phone] 08/17/2025 1:00 PM EST [facility] [address] [place] [address] Petrona Nesbitt PA [address] [place] [phone] 09/04/2025 10:15 AM EST [facility] [address] [place] [address] Carlos Lo MD [address] [place] [phone] 10/20/2025 4:00 PM EDT Telemedicine [facility] 40 [facility] 40 [facility] [address] [place] [address] Prerna Paulino MD [address] [phone] 10/29/2025 9:00 AM EDT Office Visit [facility] [address] [place] [address] Petrona Nesbitt PA [address] [place] [phone] 12/10/2025 10:00 AM EDT Office Visit [facility] [address] [place] [address] Petrona Nesbitt PA [address] [place] [phone] 01/21/2026 10:00 AM EDT Office Visit [facility] [address] [place] [address], [place] [address] Petrona Nesbitt PA [address] [place] [phone] 03/04/2026 10:00 AM EDT Office Visit [facility] [address] [place] [address], [place] [address] Petrona Nesbitt PA [address] [place] [phone] 04/15/2026 10:30 AM EDT Office Visit [facility] [address] [place] [address], [place] [address] Ebonie Crowley MD [address] [place] [phone] documented as of this encounter Visit Diagnoses Not on filedocumented in this encounter Additional Health Concerns Assessment Noted Time PHQ-9 Depression Total Score: 0 08/18/19 24 6:00 PM EST documented as of this encounter Care Teams Costumer Relationship Specialty Start Date End Date Madhav Mcfadden MD [address] [place] [address] PCP - General Family Medicine 08/20/23 documented as of this encounter
--- OUTSIDE RECORDS SUMMARY | 2025-07-24 20:36 | XMS_ITS | Encounter Summary ---
Author Organization [facility] Address [address] [place] [address] Care Team Providers Care Oracle Developer Name Role Phone Jacqueline Kay MD Primary Care Provider Unava ilable Jacqueline Kay MD Primary Care Provider Unava ilable Jacqueline Kay MD Unavailable Unavailable Jacqueline Kay MD Unavailable Unavailable Stephanie Darnell I ORDER PICKER/ASSEMBLER Unavailable [phone] Stephanie Darnell I ORDER PICKER/ASSEMBLER Unavailable [phone] Cathleen Allan MD Unavailable [phone] Pete Hester MD Unavailable [phone] Pati Armendariz PhD Unavailabl e Madhav Mcfadden MD Primary Care Provider [phone] Jacqueline Kay MD Unavailable Unavailable Yasmine Cohen RN Unavailable Unavaila ble Bre Almaguer RN Unavailable [phone] Madhav Mcfadden MD Unavailable [phone] Romero Pryor MD Unavailable [phone] Prerna Paulino MD Unavailable [phone] Magda Davis MD Unavailable [phone] Ifeoma Hanson MD Unavailable Ifeoam Hanson MD Unavailable [phone] Encounter Details Date Type Department Care Team (Late st Contact Info) Description 03/18/2020 Scanned Document [facility] [address] [place] [phone] Romero Pryor MD 305 [facility] [address] [place] [address] Social History Tobacco Use Types Packs/Day Years [...] 2025 8:00 AM EST Office Visit [address] [phone] Madhav Mcfadden MD [address] [place] [address] 09/01/2025 9:20 AM EST Office Visit [id number] [address] [phone] Reji Mi DO [address] [phone] 09/29/2025 9:20 AM EST Office Visit [id number] [address] [place] [phone] ShmuelReji, DO [address] [place] [address] 10/27/2025 9:40 AM EDT Office Visit [id number] [address] [place] [address] ShmuelReji Joni, DO [address] [place] [address] 12/01/2025 9:40 AM EDT Office Visit [id number] [address] [place] [phone] ShmuelRejiil, [address] [address] 02/03/2026 9:30 AM EDT Telemedicine [facility] Endocrinology [address] [phone] Ifeoma Hanson MD [address] [place] [address] documented as of this encounter Goals Goal [...] Benito, OT Note: Patient will increase L visual merchandising specialist strength (4lbs) to 60 lbs or more in order to open pill bottles with greater ease x12 weeks Patient will increase L lateral pinch (3.5), L tip pinch (2.5), L 3 jaw pinch (2.5) by 5 lbs each in order for greater ease with typing x12 weeks. 06/18/2019 L visual merchandising specialist- 20 lbs L lateral pinch- 6.2 [...] documented as of this encounter Care Teams Oracle Developer Relationship Specialty Start Date End Date Jacqueline Kay MD PCP - General Family Medicine 11/01/17 04/28/21 Jacqueline Kay MD PCP - General Family Medicine 04/29/21 01/15/22 Jacqueline Kay MD PCP - [employer] Commercial Attributed 06/06/20 07/05/20 Stephanie Darnell APRN [address] [address] PCP - [employer] Commercial Attributed 07/06/20 10/03/20 Stephanie Darnell APRN [address] [phone] PCP - [employer] Commercial Attributed 05/06/21 11/03/21 Madhav Mcfadden MD [address] [place], [place] [address] PCP - General Family Medicine 01/16/22 Jacqueline Kay MD PCP - [employer] Commercial Attributed 11/04/21 07/05/22 Madhav Mcfadden MD [address] [place], [place] [address] PCP - [employer] Commercial Attributed 07/06/22 07/05/23 Jacqueline Kay MD Family Medicine 04/29/21 03/30/22 Cathleen Allan MD 85 [facility] 1022 [place] [phone] Urology 09/15/16 Pete Hester MD [address] [address] Surgery, Orthopedic 08/15/19 Pati Armendariz, PhD [address] [place] [address] [address] [place] [address] Clinical Psychologist Psychology 09/16/21 Yasmine Cohen, RN [address] [id number] Community Business Trainer 07/21/22 08/26/23 Bre Almaguer RN [address] [address] [facility] Community Business Trainer 10/03/22 11/13/22 Romero Pryor MD [address] [place] [address] Cardiovascular Disease 02/05/23 Prerna Paulino MD [address] [place] [address] Internal Medicine 07/04/24 Magda Davis MD [address] [place] [address] Gastroenterology 07/04/24 Ifeoma Hanson MD [address] [place] [address] Endocrinology 07/04/24 Ifeoma Hanson MD [address] [place] [address] Endocrinology 11/26/24 documented as of this encounter
--- OUTSIDE RECORDS SUMMARY | 2025-07-24 20:36 | XMS_ITS | Encounter Summary ---
Author Organization [facility] Address [address] [place] [address] Care Team Providers Care Sleep Technician Name Role Phone Jacqueline Kay MD Primary Care Provider Unava ilable Jacqueline Kya MD Primary Care Provider Unava ilable Jacqueline Kay MD Unavailable Unavailable Jacqueline Kay MD Unavailable Unavailable Stephanie Darnell I OUTBOUND SALES EXECUTIVE Unavailable [phone] Stephanie Darnell I OUTBOUND SALES EXECUTIVE Unavailable [phone] Cathleen Allan MD Unavailable [phone] Pete Hester MD Unavailable [phone] Pati Armednariz PhD Unavailabl e Madhav Mcfadden MD Primary Care Provider [phone] Jacqueline Kay MD Unavailable Unavailable Yasmine Cohen RN Unavailable Unavaila ble Bre Almaguer RN Unavailable [phone] Madhav Mcfadden MD Unavailable [phone] Romero Pryor MD Unavailable [phone] Prerna Paulino MD Unavailable [phone] Magda Davis MD Unavailable [phone] Ifeoma Hanson MD Unavailable Ifeoma Hanson MD Unavailable Encounter Details Date Type Department Care Team (Late Contact Info) Description 02/27/2020 Prep for Surgery [facility] 31 [facility] [address] [place] [phone] Bal Dill MD 100 [facility] [address] [place] [address] Complex regional pain syndrome type 1 of right upper extremity (Primary Dx) Social History Tobacco [...] 2025 8:00 AM EST Office Visit [address] [phone] Madhav Mcfadden MD [address] [place] [address] 09/01/2025 9:20 AM EST Office Visit [id number] 65 [facility] [address] [place] [phone] Reji Mi DO [address] [phone] 09/29/2025 9:20 AM EST Office Visit [id number] [address] [place] [phone] ShmuelReji silver, DO [address] [place] [address] 10/27/2025 9:40 AM EDT Office Visit [id number] [address] [place] [phone] ShmuelRejiil, DO [address] [place] [address] 12/01/2025 9:40 AM EDT Office Visit [id number] [address] [place] [phone] ShmuelReji, DO [address] [place] [address], [place] [address] 02/03/2026 9:30 AM EDT Telemedicine [facility] Endocrinology [address] [phone] Ifeoma Hanson MD [address] [place] [address] Scheduled Orders Name Type Priority Associated Diagnoses Orde r Schedule COVID-19 (SARS-COV-2) Lab Request Microbiology Routine Complex regional pain syndrome type 1 of right upper extremity Expected: 02/27/2020, Expires: 02/26/2021 documented as of this encounter Goals Goal [...] and he was provided today with a [facility] HEP., ongoing OT LTG 2 Occupational Therapy No Maida Benito OT Note: Patient will decrease Quick Dash score from 79.5 to 10 or less in order to complete functional tasks with greater ease x 12 weeks 06/18/2019 Scored the same today, ongoing OT LTG 3 Occupational Therapy No Maida Benito OT Note: Patient will increase L master of ceremonies strength (4lbs) to 60 lbs or more in order to open pill bottles with greater ease x12 weeks Patient will increase L lateral pinch (3.5), L tip pinch (2.5), L 3 jaw pinch (2.5) by 5 lbs each in order for greater ease with typing x12 weeks. 06/18/2019 L master of ceremonies- 20 lbs L lateral pinch- 6.2 Tip [...] Complex regional pain syndrome type 1 of right upper extremity- Primary documented in this encounter Additional Health Concerns Infection Onset Date Last Indicated Resolved Time R/O Gastrointestinal Infection 10/31/2022 10/31/2022 11/02/2022 11:58 AM EDT R/O C. Difficile 10/31/2022 10/31/2022 11/02/2022 11:58 AM EDT documented as of this encounter Care Teams Sleep Technician Relationship Specialty Start Date End Date Jacqueline Kay MD PCP - General Family Medicine 11/01/17 04/28/21 Jacqueline Kay MD PCP - General Family Medicine 04/29/21 01/15/22 Jacqueline Kay MD PCP - [employer] Commercial Attributed 06/06/20 07/05/20 Stephanie Darnell APRN [address] [address] PCP - [employer] Commercial Attributed 07/06/20 10/03/20 Stephanie Darnell APRN [address] [address] PCP - [employer] Commercial Attributed 05/06/21 11/03/21 Madhav Mcfadden MD [address] [place] [address] PCP - General Family Medicine 01/16/22 Jacqueline Kay MD PCP - [employer] Commercial Attributed 11/04/21 07/05/22 Madhav Mcfadden MD [address] [place] [address] PCP - [employer] Commercial Attributed 07/06/22 07/05/23 Jacqueline Kay MD Family Medicine 04/29/21 03/30/22 Cathleen Allan MD [address] [place] [address] 1022 [place] [phone] Urology 09/15/16 Pete Hester MD [address] [place] [address] Surgery, Orthopedic 08/15/19 Pati Armendariz, PhD [address] [place] [address] [address] [place] [address] Clinical Psychologist Psychology 09/16/21 Yasmine Cohen, RN [address] [place] [address] [facility] Community Dyed Yarn Operator 07/21/22 08/26/23 Bre Almaguer, RN [address] [address] [facility] Community Dyed Yarn Operator 10/03/22 11/13/22 Romero Pryor MD [address] [place] [address] Cardiovascular Disease 02/05/23 Prerna Pauilno MD [address] [place] [address] Internal Medicine 07/04/24 Magda Davis MD [address] [place], [place] [address] Gastroenterology 07/04/24 [place] [address] [place] [address] Endocrinology 07/04/24 Ifeoma Hanson MD [facility]9 [place] [address] Endocrinology 11/26/24 documented as of this encounter
--- OUTSIDE RECORDS SUMMARY | 2025-07-24 20:36 | XMS_ITS | Encounter Summary ---
Author Organization [facility] Address [address] [place] [address] Care Team Providers Care Cereal Popper Name Role Phone Madhav Mcfadden MD Primary Care Provider [phone] Reason for Visit * Reason Onset Date Comments Medication Refill 06/11/2025 Encounter Details Date Type Department Care Team ([facility] st Contact Info) Description 06/11/2025 [facility]phone [facility] 40 [facility] 40 [facility] [address] [place] [address] Ebonie Crowley MD [address] [place] [phone] Medication Refill Social History Tobacco Use Types [...] encounter Miscellaneous Notes * Telephone Encounter - Mago Benson RN - 06/11/2025 1:32 PM EST Signed order faxed back to [facility] as requested * Telephone Encounter - Cesar Aleman - 06/11/2025 11:09 AM EST Copied from [facility] #[id number]. Topic: General Inquiry - General Inquiry >> Jun 11, 2025 11:08 AM Cesar Mortensen wrote: shyam from [facility] called regarding ondansetron, PF, (ZOFRAN) 4 mg/2 mL Soln injection Please fax to [phone]. documented in this encounter Plan of Treatment Upcoming Encounters Date Type Department Care Team (Late st Contact Info) Description 08/05/2025 1:40 PM EST Appointment [facility] Gonzalez CT Scan [address] [place] [address]. [place] [address] Bal Villavicencio MD [address] [place] [address] 08/11/2025 4:00 PM EST Evaluation [facility] 200 [place] [address] Kerry Kaba MD 200 [facility] 204 [place] [address] 08/17/2025 1:00 PM EST Office Visit [facility] [address] [place] [address] Petrona Nesbitt PA [address] [place] [phone] 09/04/2025 10:15 AM EST [facility] Up [facility] [address] [place] [address] Carlos Lo MD [address] [place] [phone] 10/20/2025 4:00 PM EDT Telemedicine [facility] 40 [facility] 40 [facility] [address] [place] [address] Prerna Paulino MD 40 [facility] [address] [place] [phone] 10/29/2025 9:00 AM EDT Office Visit [facility] [address] [place] [address], [place] [address] Petrona Nesbitt PA [address] [place] [phone] 12/10/2025 10:00 AM EDT Office Visit [facility] [address] [place] [address], [place] [address] Petrona Nesbitt PA [address] [place] [phone] 01/21/2026 10:00 AM EDT Office Visit [facility] [address] [place] [address] Petrona Nesbitt PA [address] [place] [phone] 03/04/2026 10:00 AM EDT Office Visit [facility] [address] [place] [address] Petrona Nesbitt PA [address] [place] [phone] 04/15/2026 10:30 AM EDT Office Visit [facility] [address] [place] [address] Ebonie Crowley MD [address] [place] [phone] documented as of this encounter Visit Diagnoses Not on filedocumented in this encounter Additional Health Concerns Assessment Noted Time PHQ-9 Depression Total Score: 0 08/18/19 24 6:00 PM EST documented as of this encounter Care Teams Cereal Popper Relationship Specialty Start Date End Date Madhav Mcfadden MD [address] [place] [address] PCP - General Family Medicine 08/20/23 documented as of this encounter
--- OUTSIDE RECORDS SUMMARY | 2025-07-24 20:36 | XMS_ITS | Clinical Summary ---
Author Organization [facility] Address [address] [place] [address] Care Team Providers Care Leather Drier Name Role Phone Madhav Mcfadden MD Primary Care Provider [phone] Allergies No known active allergies Medications No known medications Active Problems No known active problems Social History Tobacco Use Types Packs/Day Years Used Date Smoking Tobacco: Never Smokeless Tobacco: Never Tobacco Cessation:Counseling Given: Not Answered Alcohol Use Standard Drinks/Week Comments Not Currently 0 (1 standard drink = 0.6 oz pur e alcohol) Sex and Gender Information Value Date Recorded Sex Assigned at Not on file Legal Sex Male 4:43 AM EST Gender Identity Not on file Sexual Orientation Not on file Last Filed Vital Signs Vital Sign Reading Time Taken Comments Blood Pressure 111/76 01/16/2025 2:23 PM EDT Pulse 91 01/16/2025 2:23 PM EDT Temperature 36.8 C (98.2 F) 01/16/2025 2:23 PM EDT Respiratory Rate 20 01/16/2025 2:23 PM EDT Oxygen Saturation 98% 01/16/2025 2:23 PM EDT Inhaled Oxygen Concentration - - Weight 103 kg (228 lb) 01/16/2025 11:17 AM EDT Height 185.4 cm (6' 1 ) 01/16/2025 11:17 AM EDT Body Mass Index 30.08 01/16/2025 11:17 AM EDT Plan of Treatment Health Maintenance Due Date Last Done Comments Diabetes: Kidney Health Evaluation 1984 Diabetes: Retinopathy Screening 2002 Hepatitis C Screening 2002 Hepatitis B Vaccines (1 of 3 - 19+ 3-dose series) 2003 DTaP,Tdap,and Td Vaccines (1 - Tdap) 01/09/2007 01/08/2007 Diabetes: Hemoglobin A1C 03/18/2025 09/18/2024 COVID-19 Vaccine (8 - season) 2025 07/04/2024, 02/29/2024, 06/09/2022, Additional history exists Influenza Vaccine (#1) 2025 , 06/09/2022, 06/09/2022, Additional history exists Zoster Vaccines (1 of 2) 2034 HPV Vaccines Completed 02/28/2022, 08/06, 06/10/2021 HIV Screening Completed 03/23/2023 Pneumococcal Vaccine: At-Risk and Pediatric Patients (0 to 49 Years) Aged Out 02/29/2024, 05/06/2020 No longer el igible based on patient's age to complete this topic Hepatitis A Vaccines Aged Out No long er eligible based on patient's age to complete this topic MMR Vaccines Aged Out No longer eligi ble based on patient's age to complete this topic Meningococcal Vaccine Aged Out No jung jovany eligible based on patient's age to complete this topic Insurance MEDICAID [id number] A Care Teams Leather Drier Relationship Specialty Start Date End Date Madhav Mcfadden MD [address] [place] [address] PCP - General Internal Medicine 08/23/22
[2025-07-24 20:43] LABS: Hematocrit 45.8 % (42.0-52.0); Hemoglobin 14.8 g/dl (14.0-18.0); Imm Gran Abs Auto 0.00 X10*3/uL (0.00-0.03); Imm Gran Pct Auto 0.0 % (0.0-0.4); Lymphocytes Absolute Auto 1.8 X10*3/uL (1.2-4.9); Mean Corpuscular HGB Conc 32.3 g/dl (31.0-36.0); Mean Corpuscular Hemoglobin 25.6 pg (27.0-33.0); Mean Corpuscular Volume 79.2 fL (80.0-98.0); NRBC Abs Auto 0.000 X10*3/uL (0.0-0.012); NRBC Pct Auto 0.0 /100WBC (0.0-0.2); Platelet Count 229 X10*3/uL (160-400); Red Blood Count 5.78 X10*6/uL (4.60-5.80); White Blood Count 5.0 X10*3/uL (4.8-10.8)
[2025-07-24 21:10] LABS: Alanine Aminotransferase 23 U/L (0-40); Albumin Level 4.6 g/dL (3.5-5.0); Alkaline Phosphatase 74 U/L (39-117); Anion Gap 13 (12-20); Aspartate Amino Transferase 40 U/L (5-37); Blood Urea Nitrogen 12 mg/dL (9-16); Calcium 9.4 mg/dL (8.4-10.2); Carbon Dioxide 25 mmol/L (22-29); Chloride 106 mmol/L (96-108); Estimated Glomerular Filt Rate > 60; Magnesium 1.8 mg/dL (1.6-2.6); Potassium 4.0 mmol/L (3.3-5.1); Sodium 140 mmol/L (135-145); Total Protein 6.8 g/dL (6.5-8.0); Triglycerides 147 mg/dL (<150)
[2025-07-24 21:43] LABS: Prealbumin 30.0 mg/dL (20-40)
== END 2025-07-24 20:21 | disposition home or self-care (01) ==
LOC: HO.LNP 20:20
PROVIDERS: Visit Provider Internal Medicine Gastroenterology
DX: K31.819 Angiodysplasia of stomach and duodenum without bleeding (principal); E44.0 Moderate protein-calorie malnutrition; G83.9 Paralytic syndrome, unspecified
CPT/HCPCS: 80053; 80202; 83735; 84100; 84134; 84478; 85025; 86140